=== PATIENT | female | born 1940 | race Caucasian/White ===

== ENCOUNTER 2023-05-14 10:24 | Outpatient (OUT) | payer MEDICARE, SELFPAY ==
--- NOTE | 2023-05-14 10:27 | US_ITS ---
[address] [address] Patient Name: HENRIETTA GROSS MRN: [facility]:[id number] date: 1940 Sex: F Assigned Patient Location: Current Patient Location: US Accession/Order Number: [id number] Exam Date: 05/14/2023 10:30 Report Date: 05/14/2023 12:25 At the request of: CLINTON NIX Procedure: US carotid duplex BI EXAMINATION: US carotid duplex BI HISTORY: Bruit Of Right Carotid Artery R09.89 COMPARISON: No relevant comparison available. TECHNIQUE: Duplex Doppler ultrasound analysis of carotid and vertebral arteries. . Bilateral carotid arterial duplex examination was performed using B-mode, color flow and spectral analysis. Carotid stenosis is reported according to validated velocity parameters, similar to NASCET criteria. FINDINGS: RIGHT CAROTID ARTERY Mild atherosclerotic plaque Subclavian: PSV: 104.3 cm/s cm/s EDV: 0.0 cm/s cm/s CCA: Prox: PSV: 152.9 cm/s cm/s EDV: 38.7 cm/s cm/s Mid: PSV: 100.3 cm/s cm/s EDV: 19.5 cm/s cm/s Distal: PSV: 76.7 cm/s cm/s EDV: 17.5 cm/s cm/s BULB: PSV: 62.9 cm/s cm/s EDV: 17.5 cm/s cm/s ICA: Prox: PSV: 76.7 cm/s cm/s EDV: 13.6 cm/s cm/s Mid: PSV: 59.4 cm/s cm/s EDV: 21.9 cm/s cm/s Distal: PSV: 90.5 cm/s cm/s EDV: 27.0 cm/s cm/s ECA: PSV: 80.1 cm/s cm/s EDV: 11.5 cm/s cm/s VERTEBRAL: PSV: 58.1 cm/s cm/s EDV: 10.2 cm/s cm/s, antegrade ICA/CCA ratio: PSV: 0.6 EDV: 0.7 LEFT CAROTID ARTERY Mild atherosclerotic plaque Subclavian: PSV: 137.8 cm/s cm/s EDV: 0.0 cm/s CCA: Prox: PSV: 84.6 cm/s cm/s EDV: 21.5 cm/s Mid: PSV: 106.2 cm/s cm/s EDV: 33.3 cm/s Distal: PSV: 90.5 cm/s cm/s EDV: 31.3 cm/s BULB: PSV: 76.7 cm/s cm/s EDV: 29.4 cm/s ICA: Prox: PSV: 58.9 cm/s cm/s EDV: 19.5 cm/s Mid: PSV: 90.5 cm/s cm/s EDV: 33.3 cm/s Distal: PSV: 74.7 cm/s cm/s EDV: 23.4 cm/s ECA: PSV: 102.2 cm/s cm/s EDV: 11.6 cm/s VERTEBRAL: PSV: 78.6 cm/s cm/s EDV: 17.5 cm/s , antegrade ICA/CCA ratio: PSV: 0.9 EDV: 1.0 US/US carotid duplex BI IMPRESSION: 0-49% flow stenosis bilateral interal carotid arteries Spectral Doppler US Thresholds (Reference: Javier EG, et al. Radiology 2000; 214:247-252) Stenosis (%) PSV (cm/sec) VICA/VCCA 0-49 <150 <2.5 50-69 150-225 2.5-4.0 >70 >225 >4.0 Electronically authenticated by: GRISEL HARTMAN Date: 05/14/2023 12:25
== END 2023-05-14 10:25 | disposition home or self-care (01) ==
LOC: US 10:24
PROVIDERS: PCP Internal Medicine; Visit Provider Internal Medicine
DX: R09.89 Other specified symptoms and signs involving the circulatory and respiratory systems (principal); I65.23 Occlusion and stenosis of bilateral carotid arteries
CPT/HCPCS: 93880

== ENCOUNTER 2023-05-19 08:27 | Outpatient (OUT) | payer MEDICARE, SELFPAY ==
[2023-05-19 09:13] LABS: Hematocrit 33.9 % (36.0-48.0); Hemoglobin 10.9 g/dL (12.0-16.0); Mean Corpuscular HGB Conc 32.2 g/dL (29.9-35.2); Mean Corpuscular Hemoglobin 33.2 pg (26.7-34.0); Mean Corpuscular Volume 103.4 fL (81.0-99.0); Mean Platelet Volume 9.1 fL (9.5-13.5); Platelet Count 231 10^3/uL (150-450); Red Blood Count 3.28 10^6/uL (4.20-5.40); White Blood Count 4.4 10^3/uL (4.0-11.0)
[2023-05-19 09:41] LABS: Albumin Level 3.4 g/dL (3.4-5.0); Anion Gap 12.9; Calcium 9.4 mg/dL (8.5-10.1); Carbon Dioxide 27.8 mmol/L (21.0-32.0); Chloride 101 mmol/L (98-107); Estimated GFR (African America 41 (>=60); Estimated GFR (Non-African Ame 34 (>=60); Glucose 162 mg/dL (74-106); Magnesium 1.9 mg/dL (1.8-2.4); Phosphorus 4.2 mg/dL (2.6-4.7); Potassium 4.7 mmol/L (3.5-5.1); Sodium 137 mmol/L (136-145); Uric Acid 7.1 mg/dL (2.6-6.0)
[2023-05-19 13:55] LABS: Creatinine Urine Random 42.84 mg/dL (20.00-300.00); Protein Creatinine Ratio Urine 0.14; Total Protein Urine Random <6.0 mg/dL (<=11.9)
[2023-05-19 14:24] LABS: Bilirubin Urine NEGATIVE (NEGATIVE); Blood Urine NEGATIVE (NEGATIVE); Clarity Urine CLEAR (CLEAR); Color Urine LT. YELLOW (YELLOW); Glucose Urine UA 100 mg/dL (NEGATIVE); Ketones Urine NEGATIVE (NEGATIVE); Leukocyte Esterase Urine NEGATIVE (NEGATIVE); Nitrite Urine NEGATIVE (NEGATIVE); Protein Urine NEGATIVE (NEG/TRACE); Specific Gravity Urine 1.015 (1.005-1.025); Urobilinogen Urine 0.2 EU/dL (0.2-1.0)
[2023-05-19 14:33] LABS: Bacteria Urine NONE SEEN #/HPF (NONE SEEN); Mucus Urine NONE SEEN (NONE SEEN); RBC Urine NONE SEEN #/HPF (0-2); Squamous Epithelial Cell Urine FEW #/LPF (NONE/RARE); WBC Urine NONE SEEN #/HPF (NONE SEEN)
[2023-05-20 11:11] LABS: PTH, Intact 31 pg/mL (15-65)
== END 2023-05-19 08:28 | disposition home or self-care (01) ==
PROVIDERS: PCP Internal Medicine; Visit Provider Internal Medicine
DX: I12.9 Hypertensive chronic kidney disease with stage 1 through stage 4 chronic kidney disease, or unspecified chronic kidney disease (principal); N18.4 Chronic kidney disease, stage 4 (severe); N25.81 Secondary hyperparathyroidism of renal origin; D63.1 Anemia in chronic kidney disease; E79.0 Hyperuricemia without signs of inflammatory arthritis and tophaceous disease; E83.42 Hypomagnesemia
CPT/HCPCS: 36415; 80069; 81001; 81003; 82306; 82570; 83735; 83970; 84156; 84550; 85027

== ENCOUNTER 2023-06-11 12:51 | Outpatient (OUT) | payer MEDICARE, SELFPAY ==
--- NOTE | 2023-06-11 13:51 | CA_ITS ---
Patient: HENRIETTA GROSS Exam Date: 06/11/2023 : 1940 Gender:F Ordering : SRINIVAS BERNAL Admission #: [id number] Family : DR CLINTON NIX D.O. Order #: [id number] CLICK HERE TO VIEW EXAM ECHOCARDIOGRAM REPORT PROCEDURE: CA ECHO DOPPLER COMPLETE INDICATIONS: Murmur, chronic kidney disease, hypertension COMPARISON: None. DESCRIPTION: COMPLETE ECHOCARDIOGRAM Real-time transthoracic echocardiography with 2D, M-mode, spectral and color flow Doppler performed. QUALITY: Technical quality was good. LEFT VENTRICLE: Normal chamber size. Normal left ventricular wall thickness. LV EF: Normal left ventricular ejection fraction, (>55%). No segmental wall motion abnormalities. DIASTOLIC: Diastolic function is indeterminate. ATRIAL SEPTUM: Visually appears intact. LEFT ATRIUM: Normal chamber size. RIGHT ATRIUM: Normal chamber size. RIGHT VENTRICLE: Normal chamber size. Normal right ventricular systolic function. TRICUSPID VALVE: Normal mobility and thickness. No stenosis with mild regurgitation. Doppler studies reveal mildly (35-45) elevated right sided pressures. RVSP 43 mmHg MITRAL VALVE: Normal mobility and thickness. No evidence of mitral valve stenosis. Mild mitral annular calcification. Trivial mitral regurgitation. AORTIC VALVE: Normal trileaflet appearance. Thickened aortic valve. Normal leaflet mobility. No evidence of aortic valve stenosis. No aortic regurgitation. AORTIC ROOT: Normal diameter and appearance. PULMONIC VALVE: Normal thickness and mobility. No stenosis. Trivial regurgitation. PERICARDIUM: Anterior free space; trivial effusion versus fat pad. IVC: Collapses with inspirations. CONCLUSION: 1. Global left ventricular systolic function is normal; visually estimated ejection fraction is 60 to 65% 2. Diastolic function is indeterminate 3. The right ventricle is normal in size and systolic function 4. Mild tricuspid regurgitation 5. Mildly elevated right ventricular systolic pressure 6. Anterior free space; trivial effusion versus fat pad Adult Echocardiography Procedure Report Left Ventricle LVEDD (3.7 - 5.6 cm): 3.61 cm LVESD (2.2 - 4.0 cm): 2.27 cm LVIVS thickness (0.6 - 1.2 cm): 0.88 cm LVPW thickness (0.5 - 1.0 cm): 0.95 cm e': 0.07 m/s E - e': 8.90 LVOT Max Gradient: 2.37 mm[Hg] LVOT Area (cm2): 0.77 m/s Peak Velocity (LVOT): 0.77 m/s LVOT Diameter 2.03 cm Left Atrium Left Atrium Systolic Dimension: 2.20 cm Mitral Valve MV E to A Ratio: 0.73 Mitral Valve A-Wave Peak Velocity: 0.88 m/s Mitral Valve E-Wave Peak Velocity: 0.64 m/s Right Ventricle Aorta AO Root Diam: 2.76 cm Ascending Ao Diam: 3.08 cm Aortic Valve AoV Area (Peak Toby): 1.67 cm2, 1.67 cm2 Peak Velocity(Antegrade Flow): 1.49 m/s Peak Gradient(Antegrade Flow): 8.93 mm[Hg] Mean Velocity(Antegrade Flow): 0.94 m/s Mean Gradient(Antegrade Flow): 4.09 mm[Hg] Velocity Time Integral: 32.63 cm Tricuspid Valve Peak Velocity (Regurgitant Flow): 2.40 m/s, 3.18 m/s Pulmonic Valve Peak Velocity: 0.93 m/s Peak Gradient: 3.98 mm[Hg], 2.96 mm[Hg] Right Atrium Right Atrium Systolic Pressure: 39.51 ml, 39.51 ml Dictated by: Jeremi Abbott M.D. on 06/12/2023 at 13:26 Approved by: Jeremi Abbott M.D. on 06/12/2023 at 13:30
== END 2023-06-11 12:52 | disposition home or self-care (01) ==
LOC: CARD 12:51
PROVIDERS: PCP Internal Medicine; Visit Provider Internal Medicine
DX: I12.9 Hypertensive chronic kidney disease with stage 1 through stage 4 chronic kidney disease, or unspecified chronic kidney disease (principal); R01.1 Cardiac murmur, unspecified; I07.1 Rheumatic tricuspid insufficiency
CPT/HCPCS: 93306

== ENCOUNTER 2023-06-20 08:14 | Outpatient (RCR) | payer MEDICARE, SELFPAY ==
[2023-06-20 10:24] VITALS: BP 154/88; PULSE 69; RESP 18; TEMP 36.5; O2SAT 99
--- NOTE | 2023-06-20 10:35 | PC.NURSE ---
1024: Pt. to [facility] via w/c accompanied by . VSS. Denies adverse reaction from previous injections of Prolia. Declines wanting snack or beverage.
[2023-06-20] MEDS: DENOSUMAB 60 MG/ML SYRINGE SQ (10:44)
--- NOTE | 2023-06-20 10:51 | PC.NURSE ---
Pt. medicated with Prolia as directed. Pt. tolerates without c/o. D/c'd to home via w/c with .
== END 2023-07-19 23:59 | disposition home or self-care (01) ==
LOC: INF 08:14
PROVIDERS: PCP Internal Medicine; Visit Provider Internal Medicine
DX: M81.0 Age-related osteoporosis without current pathological fracture (principal)
CPT/HCPCS: 96372; J0897

== ENCOUNTER 2023-10-08 08:33 | Outpatient (OUT) | payer MEDICARE, SELFPAY ==
[2023-10-08 09:28] LABS: Estimated Average Glucose 174 mg/dL; Glycohemoglobin A1C 7.7 % (4.5-6.2)
== END 2023-10-08 08:34 | disposition home or self-care (01) ==
LOC: LAB 08:35
PROVIDERS: PCP Internal Medicine; Visit Provider Internal Medicine
DX: E11.65 Type 2 diabetes mellitus with hyperglycemia (principal)
CPT/HCPCS: 36415; 83036

== ENCOUNTER 2023-12-01 08:25 | Outpatient (OUT) | payer MEDICARE, SELFPAY ==
--- OUTSIDE RECORDS SUMMARY | 2023-12-01 08:35 | XMS_ITS | CCD ---
Author Name Unknown Address [address] [place] [address] Organization [facility] Care Team Providers Care Driver Messenger Name Role Phone Alex Lloyd DO Primary Care Provider Mir Amin Unavailable ALEX LLOYD Primary Care Physician [phone] Alex Lloyd DO Primary Care Provider Alex Lloyd DO Primary Care Provider MD Mikey Holden Admitting Unavailable ALEX LLOYD Referring Unavailable Mikey Holden Attending Unavailable Mikey Holden Attending Unavailable MD Mikey Holden Admitting Unavailable ALEX LLOYD Referring Unavailable Mikey Holden Attending Unavailable MD Mikey Holden Admitting Unavailable BALL, ALEX Referring Unavailable Mikey Holden Attending Unavailable MD Mikey Holden Admitting Unavailable DINAH, ALEX Referring Unavailable MD Mikey Holden Admitting Unavailable DINAH, ALEX Referring Unavailable Mikey Holden Attending Unavailable Alex Lloyd Unavailable DR ALEX LLOYD Admitting Unavailable BALL, DR ALONZO Attending Unavailable BALL, DR ALONZO Primary Care Unavailable BALL, DR ALONZO Primary Care Unavailable BALL, DR ALONZO Admitting Unavailable BALL, DR ALONZO Attending Unavailable BALL, DR ALONZO Consulting Unavailable ZIEBER, DR MERRILL Yao Consulting Unavailable BALL, DR ALONZO Primary Care Unavailable DOLORES, MIR Admitting Unavailable DOLORES, MIR Attending Unavailable DOLORES, MIR Consulting Unavailable BALL, DR ALONZO Primary Care Unavailable DOLORES, MIR Admitting Unavailable DOLORES, MIR Attending Unavailable DOLORES, MIR Consulting Unavailable DINAH, DR ALONZO Admitting Unavailable BALL, DR ALONZO Attending Unavailable BALL, DR ALONZO Consulting Unavailable BALL, DR ALONZO Primary Care Unavailable ZIEBER, DR MERRILL Yao Consulting Unavailable BALL, DR ALONZO Primary Care Unavailable REQUEST, NONE LISTED Admitting Unavaila ble REQUEST, DR CANNON LISTED Attending Unavaila ble REQUEST, DR NONE LISTED Consulting Unavaila ble BALL, DR ALONZO Primary Care Unavailable BALL, DR ALONZO Admitting Unavailable BALL, DR ALONZO Attending Unavailable BALL, DR ALONZO Primary Care Unavailable BALL, DR ALONZO Admitting Unavailable BALL, DR ALONZO Attending Unavailable BALL, DR ALONZO Consulting Unavailable ATIF YOUSIF Attending Unavailable ATIF YOUSIF R Referring Unavailable DINAH, ALEX E Primary Care Unavailable BALL, ALEX E Primary Care Unavailable KADE, ATIF R Referring Unavailable DINAH, ALEX E Primary Care Unavailable KADE, ATIF R Referring Unavailable KADE, ATIF R Referring Unavailable DINAH, ALEX E Primary Care Unavailable KADE, ATIF R Referring Unavailable KADE, ATIF Yao Attending Unavailable DINAH, ALEX Chaparro Primary Care Unavailable DINAH, ALEX Chaparro Primary Care Unavailable ATIF YOUSIF R Referring Unavailable DINAH, ALEX Chaparro Primary Care Unavailable KADE, ATIF R Referring Unavailable DINAH, ALEX Chaparro Primary Care Unavailable ATIF YOUSIF R Referring Unavailable DINAH, ALEX Chaparro Primary Care Unavailable ATIF YOUSIF Referring Unavailable MARANDA HOPE Attending Unavailable BALL, ALEX E Primary Care Unavailable KADE, ATIF R Referring Unavailable DINAH, ALEX E Primary Care Unavailable KADE, ATIF R Referring Unavailable KADE, ATIF R Attending Unavailable DINAH, ALEX E Primary Care Unavailable KADE, ATIF R Referring Unavailable DINAH, ALEX E Primary Care Unavailable KADE, ATIF R Referring Unavailable DINAH, ALEX E Primary Care Unavailable ATIF YOUSIF R Referring Unavailable DINAH, ALEX E Primary Care Unavailable KADE, ATIF R Referring Unavailable DINAH, ALEX E Primary Care Unavailable ATIF YOUSIF R Referring Unavailable ATIF YOUSIF R Attending Unavailable DINAH, ALEX E Primary Care Unavailable ATIF YOUSIF R Referring Unavailable DINAH, ALEX E Primary Care Unavailable ATIF YOUSIF R Referring Unavailable DINAH, ALEX Krysta Primary Care Unavailable CHANTAL CARNES Attending UnavailAlex Lyles MD Primary Care Provider Allergies Allergy Classification Reported Allergen(s) Allergy Type Date of Onset Reaction(s) Facility (17 sources) iron sucrose; Translations: [IRON SUCROSE] Drug Allergy 10-01-20 12 Unknown [facility] (20 sources) Sulfonamides (Antibiotic); Translations: [SULFA (SULFONAMIDE ANTIBIOTICS)] Drug Allergy 10-01-20 12 Unknown [facility] (20 sources) atorvastatin Drug Allergy Unknown [facility] (20 sources) Iron Drug Allergy Unknown [facility] (5 sources) sulfaSALAzine Drug Allergy Unknown [facility] Other (20 sources) Tetracycline Drug Allergy Unknown [facility] Other (5 sources) iron polysaccharide; Translations: [iron polysaccharide] Drug Allergy Weal (disorder) [facility] (5 sources) Sulfamethoxazole; Translations: [sulfamethoxazole ] Drug Allergy swelling [facility] (2 sources) Iron Drug Allergy 03-29-20 16 [facility] (2 sources) Sulfonamides (Antibiotic) Drug allergy (disorder) 07-01-20 13 [facility] (4 sources) patient allergy list reviewed by nurse or physicia Propensity to adverse reactions 05-17-20 19 Comment:Done [facility] Other (2 sources) ferrous sulfate Drug Allergy 06-04-20 23 [facility] (2 sources) Iron Drug Allergy 10-31-19 22 Hives [facility] (2 sources) iron sucrose Drug Allergy 10-01-20 12 Unknown [facility] (2 sources) Sulfanilamide Allergy to substance 06-04-20 23 [facility] Medications Current Medications Medication Drug Class(es) Dates Sig (Normalized) Sig (Original) acetaminophen 325 mg / HYDROcodone bitartrate 7.5 mg oral tablet (20 sources) Opioid Agonist Start: 11-06-2023 take 1 tablet by mouth three times daily as needed HYDROcodone-Aceta minophen 7.5-325 MG 1 tablet Orally three times daily, as needed for 30 days Oct, Active Start: 08-05-2023 take 1 tablet by milly th three times daily as needed HYDROcodone-Acetaminophen 7.5-325 MG 1 tablet Orally three times daily, as needed for 30 days Start 08/05Jul, Active Start: 09-06-2022 take 1 tablet by milly th three times daily as needed for pain HYDROcodone-Acetaminophen (NORCO) 7.5-32 5 mg per tablet TAKE 1 TABLET BY MOUTH 3 TIMES A DAY NEEDED FOR PAIN 0 09/06/2022 Active Start: 05-30-2022 take 1 tablet by milly th three times daily as needed for pain [place] 325 mg-7.5 mg oral tablet 1 tab(s) , Oral, TID as needed for pain, 90 tab(s), Refill(s) 0, [id number], 160, cm, 05/02/22 14:00:00 EDT, Height/Length Dosing, 72.5, kg, 05/02/22 14:00:00 EDT, Weight Dosing Start Date: 05/30/22 Status: Ordered Start: 04-16-2022 End: 05-16-2022 take 1 tablet by mouth three times daily as needed for pain [place] 325 mg-7.5 mg oral tablet 1 tab(s) , Oral, TID as needed for pain for 30 day(s), 90 tab(s), Refill(s) 0, [id number], 160, cm, 02/21/22 12:46:00 EDT, Height/Length Dosing, 76.2, kg, 02/21/22 12:46:00 EDT, Weight Dosing Start Date: 04/16/22 Stop Date: 05/16/22 Status: Ordered take 1 tablet by milly th every eight hours as needed HYDROcodone-Acetaminophen 7.5-325 MG 1 tablet as needed Orally every 8 hrs prn Active Comment on above: TAKE 1 TABLET BY MILLY TH 3 TIMES A DAY NEEDED FOR PAIN amoxicillin 500 mg oral capsule (20 sources) Penicillin-class Antibacterial Amoxicillin 500 MG 4 capsule Orally before dental work Active Calcium + D3 600-800 MG-UNIT (20 sources) take 600-800 tablets by mouth once daily Calcium + D3 600-800 MG-UNIT 1 tablet with a meal Orally Once a day Active Calcium Carbonate-Vit D-Min (Calcium 600+D Plus Minerals) 600-400 MG-UNIT tablet (2 sources) Calcium Carbonat e-Vit D-Min (Calcium 600+D Plus Minerals) 600-400 MG-UNIT tablet every 12 (twelve) hours. 0 Active Calcium Citrate / Vitamin D (4 sources) Start: 017 calcium-vitamin D 1,200 mg, Oral, Daily, Refill(s) 0, 800 mg vitamin d 1200 mg calcium Start Date: 10/23/16 Status: Ordered cholecalciferol 0.025 mg oral capsule (2 sources) Vitamin D take 1 capsule by mouth once daily cholecalciferol ( Vitamin D) 25 MCG (1000 UT) capsule take 1 by Oral route every day Oral 0 Active 1 ml denosumab 60 mg/ml prefilled syringe (14 sources) RANK Ligand Inhibitor Start: 023 Prolia 60 MG/ML as directed Subcutaneous q 6 mo February, Active denosumab (Proli a) 60 MG/ML solution prefilled syringe Subcutaneous 0 Active gabapentin 100 mg oral capsule (20 sources) Anti-epileptic Agent Start: 10-11-2021 take 1 capsule by mouth three times daily gabapentin 100 mg Cap 100 mg = 1 cap(s), Oral, TID, Refills(s) 0 Start Date: 10/11/21 Status: Ordered Start: 10-01-2012 take 3 capsules by m outh three times daily gabapentin (NEURONTIN) 100 mg capsule Take 300 mg by mouth three times daily. 0 10/01/2012 Active gabapentin (Neur ontin) 100 MG capsule every 8 (eight) hours. 0 Active Comment on above: Take 300 mg by mouth three times daily. Glucose Meter Test - (16 sources) Start: 02-17-2023 Glucose Meter Test - Use to test home BS qd In Vitro daily for 365 days February, Active magnesium oxide 400 mg oral tablet (20 sources) Start: 11-27-2022 take 1 tablet by mouth in the morning magnesium oxide (Mag-Ox) 400 MG tablet Take 400 mg by mouth in the morning. 0 08/25/2023 Active [place] 3 1000 MG (20 sources) take 1 capsule by mouth twice daily [place] 3 1000 MG 1 capsule Orally twice day Active [place] 3 340 MG capsule delayed-release (2 sources) take 1 capsule by mouth every twelve hours [place] 3 340 MG capsule delayed-release 1 capsule every 12 (twelve) hours. 0 Active [place]-3 (4 sources) Start: 09-06-2014 take 300 mg by mouth twice daily [place]-3 300 mg, Oral, BID, Refill(s) 0, Prophylaxis Start Date: 09/06/14 Status: Ordered Completed/Discontinued Medications Medication Drug Class(es) Dates Sig (Normalized) Sig (Original) amLODIPine 5 mg oral tablet (20 sources) Dihydropyridine Calcium Channel Juliet Start: 09-29-2021 amLODIPine (NORVASC) 5 mg tablet Calcium Carbonate / vitamin D3 (16 sources) calcium carbonate/vitami n D3 (CALCIUM 600 + D ORAL) Take by mouth. 0 Active Comment on above: Take by mouth. carvedilol 6.25 mg oral tablet (20 sources) alpha-Adrenergic Juliet, beta-Adrenergic Juliet Start: 09-01-2012 take 1 tablet by mouth twice daily carvedilol (COREG) 6.25 mg tablet Take 1 tablet by mouth twice daily. 0 10/01/2012 Active Comment on above: Take 1 tablet by milly th twice daily. famotidine 20 mg oral tablet (20 sources) Histamine-2 Receptor Antagonist Start: 10-11-2021 famotidine (PEPCID) 20 mg tablet Take by mouth twice daily. 0 10/11/2021 Active famotidine (Pepc id) 20 MG tablet every 12 (twelve) hours. 0 Active Comment on above: Take by mouth twice daily. fenofibrate 134 mg oral capsule (20 sources) Peroxisome Proliferator Receptor alpha Agonist Start: 8 take 1 capsule by mouth once daily at bedtime fenofibrate (LOFIBRA) 134 mg capsule Take 134 mg by mouth daily at bedtime. 0 05/22/2019 Active fenofibrate (Tri glide) 160 MG tablet 1 (one) time each day at the same time. 0 Active Comment on above: Take 134 mg by mouth daily at bedtime. [id number]-fish oil 300-1,000 mg cpDR (16 sources) [id number] -fish oil 300-1,000 mg cpDR Take by mouth. 0 Active Comment on above: Take by mouth. oxyCODONE hydrochloride 5 mg oral tablet (11 sources) Opioid Agonist Start: 2 End: 2 take 1 tablet by mouth twice daily as needed for pain oxyCODONE IR (ROXICODONE) 5 mg immediate release tablet TAKE 1 TABLET BY MOUTH TWICE A DAY NEEDED FOR PAIN 0 11/13/2021 09/16/2022 Discontinued (Discontinued by another Health Care Provider) Comment on above: TAKE 1 TABLET BY MILLY TH TWICE A DAY NEEDED FOR PAIN Problems Active Problems Problem Classification Problem Date Documented Date Episodic/Chronic Chronic kidney disease (20 sources) Chronic kidney disease stage 3B ; Translations: [Chronic renal impairment, stage 3b (HCC)] Onset: 2 Resolved: 2 Chronic Chronic kidney disease (20 sources) Chronic kidney disease; Translations: [Chronic kidney disease, stage III (moderate)] Onset: 1 Resolved: 1 Conditions associated with dizziness or vertigo (2 sources) Benign paroxysmal vertigo, bilateral Episodic Deficiency and other anemia (20 sources) Anemia of chronic renal failure; Translations: [Anemia of chronic renal failure, stage 3b (HCC)] Onset: 2 Chronic Deficiency and other anemia (4 sources) Iron deficiency anemia due to blood loss; Translations: [Iron deficiency anemia secondary to blood loss (chronic)] Chronic Deficiency and other anemia (20 sources) Anemia of renal disease; Translations: [Anemia in chronic kidney disease] Chronic Deficiency and other anemia (7 sources) Anemia in chronic kidney disease; Translations: [ANEMIA IN CHRONIC KIDNEY DISEASE] Onset: 2 Resolved: 2 Chronic Deficiency and other anemia (4 sources) Anemia due to chronic blood loss; Translations: [Iron deficiency anemia secondary to blood loss (chronic)] Onset: 7 Chronic Deficiency and other anemia (4 sources) Chronic anemia; Translations: [Anemia in other chronic diseases classified elsewhere] Chronic Deficiency and other anemia (20 sources) Iron deficiency anemia secondary to inadequate dietary iron intake; Translations: [Other iron deficiency anemias] Episodic Deficiency and other anemia (2 sources) Other iron deficiency anemias Episodic Deficiency and other anemia (12 sources) Iron deficiency anemia; Translations: [Other iron deficiency anemias] Onset: 5 Episodic Deficiency and other anemia (1 source) Deficiency and other anemia; Translations: [Anemia of chronic renal failure, stage 3b (HCC)] Onset: 2 Diabetes mellitus with complications (20 sources) Type 2 diabetes mellitus; Translations: [Type 2 diabetes mellitus with hyperglycemia] Chronic Disorders of lipid metabolism (20 sources) Hyperlipidemia; Translations: [Hyperlipidemia, unspecified] Onset: 6 08-18-2014 Chronic Esophageal disorders (20 sources) Gastroesophageal reflux disease; Translations: [Gastro-esophageal reflux disease without esophagitis] Onset: 3 Resolved: 0 08-18-2014 Chronic Essential hypertension (20 sources) Essential hypertension; Translations: [Essential (primary) hypertension] Onset: 3 Chronic Fluid and electrolyte disorders (4 sources) Hyperkalemia; Translations: [Hyperkalemia] Episodic Gastroduodenal ulcer (except hemorrhage) (4 sources) Gastric ulcer 02-18-2019 Chronic Gastroduodenal ulcer (except hemorrhage) (4 sources) H/O: peptic ulcer; Translations: [Personal history of peptic ulcer disease] Episodic Genitourinary symptoms and ill-defined conditions (4 sources) Dysuria; Translations: [Dysuria] Episodic Heart valve disorders (1 source) Cardiac murmur, unspecified Episodic Hypertension with complications and secondary hypertension (20 sources) Chronic kidney disease due to hypertension; Translations: [Hypertensive chronic kidney disease with stage 1 through stage 4 chronic kidney disease, or unspecified chronic kidney disease] Onset: 6 Resolved: 2 Chronic Immunizations and screening for infectious disease (4 sources) Vaccination given; Translations: [Encounter for immunization] Episodic Mycoses (1 source) Onychomycosis; Translations: [Tinea unguium] 11-28-2023 Episodic Neoplasms of unspecified nature or uncertain behavior (20 sources) Monoclonal gammopathy of uncertain significance; Translations: [Monoclonal gammopathy] Chronic Nutritional deficiencies (7 sources) Vitamin D deficiency, unspecified; Translations: [Vitamin D deficiency] Onset: 3 06-04-2023 Chronic Osteoarthritis (20 sources) Degenerative joint disease involving multiple joints; Translations: [Polyosteoarthritis, unspecified] Onset: 6 Chronic Osteoporosis (19 sources) Age-related osteoporosis without current pathological fracture; Translations: [Senile osteoporosis] Onset: 3 Chronic Other acquired deformities (16 sources) Scoliosis of lumbar spine; Translations: [Scoliosis, unspecified] Onset: 4 08-18-2014 Chronic Other circulatory disease (5 sources) Other specified symptoms and signs involving the circulatory and respiratory systems Episodic Other diseases of kidney and ureters (20 sources) Secondary hyperparathyroidism; Translations: [Secondary hyperparathyroidism of renal origin] Chronic Other diseases of kidney and ureters (6 sources) Secondary hyperparathyroidism of renal origin; Translations: [SEC HYPERPARATHYROIDISM RENAL ORIGN] Onset: 1 Resolved: 2 Chronic Other diseases of veins and lymphatics (20 sources) Peripheral venous insufficiency; Translations: [Venous insufficiency (chronic) (peripheral)] Onset: 6 Episodic Other diseases of veins and lymphatics (4 sources) Venous insufficiency (chronic) (peripheral) Episodic Other ear and sense organ disorders (4 sources) Otitis externa of right ear; Translations: [Unspecified otitis externa, right ear] Onset: 7 Chronic Other fractures (4 sources) Fracture of pelvis 05-15-2016 Episodic Other fractures (4 sources) Wedge compression fracture of unspecified lumbar vertebra, subsequent encounter for fracture with routine healing; Translations: [Wedge comprsn fx unsp lum vertebra, subs for fx w routn heal] Episodic Other injuries and conditions due to external causes (4 sources) Fracture of bone 10-04-2015 Episodic Comment on above: August 2015 Other injuries and conditions due to external causes (8 sources) History of fall; Translations: [Personal history of fall] Onset: 6 Episodic Other injuries and conditions due to external causes (4 sources) Old healed fracture of bone ; Translations: [Personal history of (healed) traumatic fracture] Episodic Other nervous system disorders (2 sources) Neuropathy; Translations: [Idiopathic progressive neuropathy] Onset: 3 06-04-2023 Chronic Other nervous system disorders (1 source) Idiopathic progressive polyneuropathy; Translations: [Idiopathic progressive neuropathy] 11-28-2023 Chronic Other non-traumatic joint disorders (4 sources) Lower limb joint arthritis; Translations: [Osteoarthrosis, unspecified whether generalized or localized, lower leg] Onset: 7 Chronic Other nutritional; endocrine; and metabolic disorders (20 sources) Hypomagnesemia; Translations: [Hypomagnesemia] Chronic Other nutritional; endocrine; and metabolic disorders (2 sources) Hypomagnesemia Chronic Other nutritional; endocrine; and metabolic disorders (4 sources) Hypercalcemia; Translations: [Hypercalcemia] Onset: 8 Chronic Other nutritional; endocrine; and metabolic disorders (4 sources) Simple obesity ; Translations: [Other obesity due to excess calories] Onset: 4 Chronic Other nutritional; endocrine; and metabolic disorders (4 sources) Body mass index 30+ - obesity; Translations: [Body mass index 31.0-31.9, adult] Onset: 4 Chronic Other nutritional; endocrine; and metabolic disorders (4 sources) Obese class I; Translations: [Body mass index 32.0-32.9, adult] Onset: 4 Chronic Other nutritional; endocrine; and metabolic disorders (3 sources) History of iron deficiency; Translations: [Personal history of other endocrine, nutritional and metabolic disease] Episodic Other nutritional; endocrine; and metabolic disorders (2 sources) Hyperuricemia without signs of inflammatory arthritis and tophaceous disease Episodic Other nutritional; endocrine; and metabolic disorders (4 sources) Overweight; Translations: [Overweight] Episodic Other skin disorders (1 source) Callosity; Translations: [Corns and callosities] 11-28-2023 Episodic Regional enteritis and ulcerative colitis (20 sources) Crohn's disease; Translations: [Crohn's disease, unspecified, without complications] Onset: 2 10-07-2012 Chronic Spondylosis; intervertebral disc disorders; other back problems (20 sources) Other spondylosis with myelopathy, lumbar region; Translations: [Lumbar spondylosis with myelopathy] Onset: 8 Chronic Thyroid disorders (4 sources) 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; Translations: [Thyrotoxicosis of other specified origin without mention of thyrotoxic crisis or storm] Onset: 7 Chronic Unclassified (4 sources) Long-term current use of opiate analgesic drug Onset: 2 05-02-2022 Comment on above: Added secondary to c urrent Opioid Treatment Agreement Unclassified (4 sources) Urine finding; Translations: [Other nonspecific finding on examination of urine] Onset: 7 Unclassified (4 sources) Retained foreign body, unspecified material; Translations: [Retained foreign body, unspecified material] Onset: 5 Viral infection (4 sources) Disease caused by 2019-nCoV; Translations: [COVID-19] Past or Other Problems Problem Classification Problem Date Documented Da te Episodic/Chronic Acute and unspecified renal failure (5 sources) Acute kidney failure, unspecified; Translations: [Acute renal failure syndrome] Onset: 10-16-2021 Resolved: 04-23-2022 Episodic Acute posthemorrhagic anemia (4 sources) Acute posthemorrhagic anemia; Translations: [Acute posthemorrhagic anemia] Onset: 05-05-2017 Episodic Bacterial infection; unspecified site (4 sources) Bacterial infectious disease; Translations: [Bacterial infection, unspecified, in conditions classified elsewhere and of unspecified site] Onset: 10-16-2017 Episodic Deficiency and other anemia (20 sources) Anemia; Translations: [Anemia, unspecified] Onset: 10-01-2012 Resolved: 10-19-2022 10-01-2012 Episodic Deficiency and other anemia (1 source) Anemia, unspecified Onset: 10-16-2021 Resolved: 10-16-2021 Episodic Esophageal disorders (8 sources) Esophageal disorders; Translations: [Gastro-esophageal reflux disease with esophagitis, without bleeding] Gastrointestinal hemorrhage (4 sources) Acute gastric ulcer with hemorrhage but without obstruction; Translations: [Acute gastric ulcer with hemorrhage, without mention of obstruction] Onset: 02-15-2019 Episodic Malaise and fatigue (16 sources) Malaise and fatigue; Translations: [Other malaise] Onset: 12-05-2017 12-05-2017 Episodic Nutritional deficiencies (18 sources) Iron deficiency; Translations: [Iron deficiency] Onset: 10-01-2012 10-01-2012 Episodic Other circulatory disease (4 sources) Cardiovascular symptoms; Translations: [Other symptoms involving cardiovascular system] Onset: 10-16-2017 Episodic Other connective tissue disease (4 sources) Spasm; Translations: [Spasm of muscle] Onset: 04-03-2018 Episodic Other ear and sense organ disorders (4 sources) Impacted cerumen; Translations: [Impacted cerumen] Onset: 02-06-2017 Episodic Other fractures (4 sources) Fracture of pelvis Onset: 07-30-2016 08-15-2016 Episodic Other non-traumatic joint disorders (4 sources) Pain in right hip joint; Translations: [Pain in right hip] Onset: 07-04-2016 Episodic Other screening for suspected conditions (not mental disorders or infectious disease) (5 sources) Encounter for screening mammogram for malignant neoplasm of breast; Translations: [Blood chemistry abnormal] Onset: 03-05-2017 Episodic Other skin disorders (4 sources) Hypertrophic condition of skin; Translations: [Other hypertrophic disorders of the skin] Resolved: 09-10-2021 Episodic Other skin disorders (4 sources) Actinic keratosis; Translations: [Actinic keratosis] Onset: 10-30-2016 Episodic Other skin disorders (4 sources) Localized swelling, mass and lump, neck; Translations: [Localized swelling, mass and lump, neck] Onset: 04-16-2018 Episodic Other skin disorders (4 sources) Localized swelling, mass and lump, unspecified lower limb; Translations: [Localized swelling, mass and lump, unspecified lower limb] Onset: 10-30-2016 Episodic Other upper respiratory disease (4 sources) Bleeding from nose; Translations: [Epistaxis] Onset: 12-16-2014 Episodic Other upper respiratory infections (8 sources) Acute maxillary sinusitis; Translations: [Acute recurrent maxillary sinusitis] Onset: 02-03-2014 Episodic Otitis media and related conditions (4 sources) Eustachian tube salpingitis; Translations: [Unspecified Eustachian salpingitis, bilateral] Resolved: 04-11-2021 Episodic Spondylosis; intervertebral disc disorders; other back problems (20 sources) Stenosis of lumbar vertebral foramen; Translations: [Spinal stenosis, lumbar region without neurogenic claudication] Onset: 09-07-2013 08-18-2014 Episodic Sprains and strains (4 sources) Neck sprain; Translations: [Strain of muscle, fascia and tendon at neck level, initial encounter] Onset: 04-03-2018 Episodic Superficial injury; contusion (4 sources) Contusion of hand; Translations: [Contusion of hand(s)] Onset: 08-03-2015 Episodic Urinary tract infections (8 sources) Acute cystitis; Translations: [Acute cystitis with hematuria] Onset: 10-16-2017 Resolved: 09-10-2021 Episodic Results Test Name Value Interpretation Reference Range Facility Basic metabolic 2000 panelon 08-21-2023 Anion gap [Moles/Vol] 7 mmol/L Low 9-18 [facility] Comment on above: Order Comment: Speci men Type: BLOOD SPECIMENOrdering Facility: [facility] Address: [address] [place] [address] Performed By: #### 2 4321-2 ####[facility] [id number] [place] [address] Calcium [Mass/Vol] 10.4 mg/dL High 8.5-10.2 [facility] Comment on above: Order Comment: Speci men Type: BLOOD SPECIMENOrdering Facility: [facility] Address: [address] [place] [address] Performed By: #### 2 4321-2 ####[facility] [id number] [place] [address] Chloride [Moles/Vol] 100 mmol/L Normal 97-105 [facility] Comment on above: Order Comment: Speci men Type: BLOOD SPECIMENOrdering Facility: [facility] Address: [address] [place] [address] Performed By: #### 2 4321-2 ####[facility] [id number] [place] [address] CO2 [Moles/Vol] 29 mmol/L Normal 22-30 [facility] Comment on above: Order Comment: Speci men Type: BLOOD SPECIMENOrdering Facility: [facility] Address: [address] [place] [address] Performed By: #### 2 4321-2 ####[facility] [id number] [place] [address] Creatinine [Mass/Vol] 1.43 mg/dL High 0.58-0.96 [facility] Comment on above: Order Comment: Speci men Type: BLOOD SPECIMENOrdering Facility: [facility] Address: [address] [place] [address] Performed By: #### 2 4321-2 ####[facility] [id number] [place] [address] Creatinine and Glomerular filtration rate.predicted panel (S/P/Bld) 36 mL/min/1.73m??? Low >=60 [facility] Comment on above: Order Comment: Speci men Type: BLOOD SPECIMENOrdering Facility: [facility] Address: [address] [place] [address] Result Comment: Lady mated Glomerular Filtration Rate (eGFR) is calculated using the 2020 CKD-EPI creatinine equation. This equation utilizes serum creatinine, sex, and age as parameters. The creatinine assay has traceable calibration to isotope dilution-mass spectrometry. Refer to KDIGO guidelines for clinical interpretation. In patients with unstable renal function, e.g. those with acute kidney injury, the eGFR may not accurately reflect actual GFR. Performed By: #### 2 4321-2 ####[facility] [id number] [place] [address] Glucose [Mass/Vol] 213 mg/dL High 74-99 [facility] Comment on above: Order Comment: Speci men Type: BLOOD SPECIMENOrdering Facility: [facility] Address: [address] [place] [address] Result Comment: The [place] Diabetes Association (ADA) provides guidance for cutoff values for fasting glucose and random glucose. The ADA defines fasting as no caloric intake for at least 8 hours. Fasting plasma glucose results between 100 to 125 mg/dL indicate increased risk for diabetes (prediabetes). Fasting plasma glucose results greater than or equal to 126 mg/dL meet the criteria for diagnosis of diabetes. In the absence of unequivocal hyperglycemia, results should be confirmed by repeat testing. In a patient with classic symptoms of hyperglycemia or hyperglycemic crisis, random plasma glucose results greater than or equal to 200 mg/dL meet the criteria for diagnosis of diabetes. Reference: Standards of Medical Care in Diabetes 2016, [place] [employer]. Diabetes Care. 2016.39(Suppl 1). Performed By: #### 2 4321-2 ####[facility] [id number] [place] [address] Potassium [Moles/Vol] 4.7 mmol/L Normal 3.7-5.1 [facility] Comment on above: Order Comment: Lindsayi mary Type: BLOOD SPECIMENOrdering Facility: [facility] Address: [address] [place] [address] Performed By: #### 2 4321-2 ####[facility] [id number] [place] [address] Sodium [Moles/Vol] 136 mmol/L Normal 136-144 [facility] Comment on above: Order Comment: Speci men Type: BLOOD SPECIMENOrdering Facility: [facility] Address: [address] [place] [address] Performed By: #### 2 4321-2 ####[facility] [id number] [place] [address] Urea nitrogen [Mass/Vol] 34 mg/dL High 7-21 [facility] Comment on above: Order Comment: Speci men Type: BLOOD SPECIMENOrdering Facility: [facility] Address: [address] [place] [address] Performed By: #### 2 4321-2 ####[facility] [id number] [place] [address] CBC W Auto Differential pane l (Bld)on 08-21-2023 Basophils (Bld) [#/Vol] 0.03 10*3/uL Normal <0.11 [facility] Comment on above: Order Comment: Speci men Type: BLOOD SPECIMENOrdering Facility: [facility] Address: [address] [place] [address] Performed By: #### 5 7021-8 ####[facility] [id number] [place] [address] Basophils/100 WBC (Bld) 0.5 % Normal [facility] Comment on above: Order Comment: Speci men Type: BLOOD SPECIMENOrdering Facility: [facility] Address: [address] [place] [address] Performed By: #### 5 7021-8 ####[facility] [id number] [place] [address] Differential cell count method Nom (Bld) Auto Normal [facility] Comment on above: Order Comment: Speci men Type: BLOOD SPECIMENOrdering Facility: [facility] Address: [address] [place] [address] Performed By: #### 5 7021-8 ####[facility] [id number] [place] [address] Eosinophils (Bld) [#/Vol] 0.22 10*3/uL Normal <0.46 [facility] Comment on above: Order Comment: Speci men Type: BLOOD SPECIMENOrdering Facility: [facility] Address: [address] [place] [address] Performed By: #### 5 7021-8 ####[facility] [id number] [place] [address] Eosinophils/100 WBC (Bld) 4.0 % Normal [facility] Comment on above: Order Comment: Speci men Type: BLOOD SPECIMENOrdering Facility: [facility] Address: [address] [place] [address] Performed By: #### 5 7021-8 ####[facility] [id number] [place] [address] Erythrocyte distribution width (RBC) [Ratio] 12.7 % Normal 11.5-15.0 [facility] Comment on above: Order Comment: Speci men Type: BLOOD SPECIMENOrdering Facility: [facility] Address: [address] [place] [address] Performed By: #### 5 7021-8 ####[facility] [id number] [place] [address] Hematocrit (Bld) [Volume fraction] 36.2 % Normal 36.0-46.0 [facility] Comment on above: Order Comment: Speci men Type: BLOOD SPECIMENOrdering Facility: [facility] Address: [address] [place] [address] Performed By: #### 5 7021-8 ####[facility] [id number] [place] [address] Hemoglobin (Bld) [Mass/Vol] 12.0 g/dL Normal 11.5-15.5 [facility] Comment on above: Order Comment: Speci men Type: BLOOD SPECIMENOrdering Facility: [facility] Address: [address] [place] [address] Performed By: #### 5 7021-8 ####[facility] [id number] [place] [address] Immature granulocytes (Bld) [#/Vol] 10*3/uL Normal <0.10 [facility] Comment on above: Order Comment: Speci men Type: BLOOD SPECIMENOrdering Facility: [facility] Address: [address] [place] [address] Performed By: #### 5 7021-8 ####[facility] [id number] [place] [address] Immature granulocytes/100 WBC (Bld) 0.4 % Normal [facility] Comment on above: Order Comment: Speci men Type: BLOOD SPECIMENOrdering Facility: [facility] Address: [address] [place] [address] Performed By: #### 5 7021-8 ####[facility] [id number] [place] [address] Lymphocytes (Bld) [#/Vol] 0.99 10*3/uL Low 1.00-4.00 [facility] Comment on above: Order Comment: Speci men Type: BLOOD SPECIMENOrdering Facility: [facility] Address: [address] [place] [address] Performed By: #### 5 7021-8 ####[facility] [id number] [place] [address] Lymphocytes/100 WBC (Bld) 17.8 % Normal [facility] Comment on above: Order Comment: Speci men Type: BLOOD SPECIMENOrdering Facility: [facility] Address: [address] [place] [address] Performed By: #### 5 7021-8 ####[facility] [id number] [place] [address] MCH (RBC) [Entitic mass] 34.0 pg Normal 26.0-34.0 [facility] Comment on above: Order Comment: Speci men Type: BLOOD SPECIMENOrdering Facility: [facility] Address: [address] [place] [address] Performed By: #### 5 7021-8 ####[facility] [id number] [place] [address] MCHC (RBC) [Mass/Vol] 33.1 g/dL Normal 30.5-36.0 [facility] Comment on above: Order Comment: Speci men Type: BLOOD SPECIMENOrdering Facility: [facility] Address: [address] [place] [address] Performed By: #### 5 7021-8 ####[facility] [id number] [place] [address] MCV (RBC) [Entitic vol] 102.5 fL High 80.0-100.0 [facility] Comment on above: Order Comment: Speci men Type: BLOOD SPECIMENOrdering Facility: [facility] Address: [address] [place] [address] Performed By: #### 5 7021-8 ####[facility] [id number] [place] [address] Monocytes (Bld) [#/Vol] 0.45 10*3/uL Normal <0.87 [facility] Comment on above: Order Comment: Speci men Type: BLOOD SPECIMENOrdering Facility: [facility] Address: [address] [place] [address] Performed By: #### 5 7021-8 ####[facility] [id number] [place] [address] Monocytes/100 WBC (Bld) 8.1 % Normal [facility] Comment on above: Order Comment: Speci men Type: BLOOD SPECIMENOrdering Facility: [facility] Address: [address] [place] [address] Performed By: #### 5 7021-8 ####[facility] [id number] [place] [address] Neutrophils (Bld) [#/Vol] 3.84 10*3/uL Normal 1.45-7.50 [facility] Comment on above: Order Comment: Speci men Type: BLOOD SPECIMENOrdering Facility: [facility] Address: [address] [place] [address] Performed By: #### 5 7021-8 ####[facility] [id number] [place] [address] Neutrophils/100 WBC (Bld) 69.2 % Normal [facility] Comment on above: Order Comment: Speci men Type: BLOOD SPECIMENOrdering Facility: [facility] Address: [address] [place] [address] Performed By: #### 5 7021-8 ####[facility] [id number] [place] [address] Nucleated RBC (Bld) [#/Vol] 10*3/uL Normal <0.01 [facility] Comment on above: Order Comment: Speci men Type: BLOOD SPECIMENOrdering Facility: [facility] Address: [address] [place] [address] Performed By: #### 5 7021-8 ####[facility] [id number] [place] [address] Nucleated RBC/100 WBC (Bld) [Ratio] 0.0 /100 WBC Normal [facility] Comment on above: Order Comment: Speci men Type: BLOOD SPECIMENOrdering Facility: [facility] Address: [address] [place] [address] Performed By: #### 5 7021-8 ####[facility] [id number] [place] [address] Platelet mean volume (Bld) [Entitic vol] 9.0 fL Normal 9.0-12.7 [facility] Comment on above: Order Comment: Speci men Type: BLOOD SPECIMENOrdering Facility: [facility] Address: [address] [place] [address] Performed By: #### 5 7021-8 ####[facility] [id number] [place] [address] Platelets (Bld) [#/Vol] 223 10*3/uL Normal 150-400 [facility] Comment on above: Order Comment: Speci men Type: BLOOD SPECIMENOrdering Facility: [facility] Address: [address] [place] [address] Performed By: #### 5 7021-8 ####[facility] [id number] [place] [address] RBC (Bld) [#/Vol] 3.53 10*6/uL Low 3.90-5.20 [facility] Comment on above: Order Comment: Speci men Type: BLOOD SPECIMENOrdering Facility: [facility] Address: [address] [place] [address] Performed By: #### 5 7021-8 ####[facility] [id number] [place] [address] WBC (Bld) [#/Vol] 5.55 10*3/uL Normal 3.70-11.00 [facility] Comment on above: Order Comment: Speci men Type: BLOOD SPECIMENOrdering Facility: [facility] Address: [address] [place] [address] Performed By: #### 5 7021-8 ####[facility] [id number] [place] [address] CNOVSPon 08-21-2023 CNOVS Visit (SP) Office ([facility]) HENRIETTA MAGANA ([id number]) 1940 F Date Time Provider Department 08/21/23 1:45 PM ATIF YOUSIF During your visit today, we recorded the following information about you: Temperature Pulse Respiration Blood pressure 97.7 degrees 71/minute 16/minute 151/74 Weight 69.9 kg Atif Yousif MD 08/21/2023 5:50 PM Signed PATIENT NAME: Henrietta Magana DATE: 08/21/2023 PRIMARY CARE PHYSICIAN: Dr. Alex Lloyd OTHER PHYSICIANS: Dr. Holden (pain management), Dr. Flores, Dr. Amin Portions of this encounter note have been copied from the note from 05/01/2023 and has been updated where appropriate, and reflect my current medical decision making from today. CC: This is an 83 year old female with chronic anemia, seen for scheduled follow-up. INTERIM HISTORY: Since the patient's last visit here she has had no significant medical changes. She remains on a low-carb diet for her recent diagnosis of type 2 diabetes. She denies any evidence of bleeding or bruising. Overall she feels well. MEDICATIONS: HYDROcodone-Acetamino phen (NORCO) 7.5-325 mg per tablet TAKE 1 TABLET BY MOUTH 3 TIMES A DAY NEEDED FOR PAIN calcium carbonate/vitamin D3 (CALCIUM 600 + D ORAL) Take by mouth. famotidine (PEPCID) 20 mg tablet Take by mouth twice daily. amLODIPine (NORVASC) 5 mg tablet fenofibrate (LOFIBRA) 134 mg capsule Take 134 mg by mouth daily at bedtime. mgouo-[id number]-ngp-epa-fish oil 300-1,000 mg cpDR Take by mouth. carvedilol (COREG) 6.25 mg tablet Take 1 tablet by mouth twice daily. gabapentin (NEURONTIN) 100 mg capsule Take 300 mg by mouth three times daily. ALLERGIES: Sulfa (Sulfonamide Antibiotics) and Venofer [Iron Sucrose] PAST MEDICAL HISTORY: PAST MEDICAL HISTORY Diagnosis Date Anemia Arthritis Chronic renal insufficiency Crohn's disease (HCC) Degenerative joint disease GERD (gastroesophageal reflux disease) Hyperlipidemia Hypertension Iron deficiency Osteoarthritis PAST SURGICAL HISTORY: PAST SURGICAL HISTORY Procedure Laterality Date BACK SURGERY HX 2004 Dr. Guillen CATARACT SURGERY, COMPLEX COLONOSCOPY EGD HYSTERECTOMY HX KNEE SURGERY HX 2009 TKR. Left REVIEW OF SYSTEMS: General: No weight loss, malaise or fevers. Increasing fatigue. HEENT: Negative for frequent or significant headaches. No changes in hearing or vision, no nose bleeds or other nasal problems. Respiratory: Negative for cough, wheezing or shortness of breath. Cardiovascular: Negative for chest pain, leg swelling or palpitations. GI: Negative for abdominal discomfort, blood in stools or black stools or change in bowel habits. : No history of dysuria, frequency or incontinence. Musculoskeletal: Positive for joint pain and swelling and muscle pain- chronic. Skin: Negative for lesions, rash, and itching. Hematology/Lymphology : Negative for prolonged bleeding, bruising easily or swollen nodes. Neuro: No history of headaches, syncope, paralysis, seizures or tremors. PHYSICAL EXAM: Vitals: BP 151/74 Pulse 71 Temp 36.5 ?C (97.7 ?F) (Temporal) Resp 16 Wt 69.9 kg (154 lb) SpO2 97% BMI 30.08 kg/m? ECOG 1 Exam limited to gross visualization where appropriate due to COVID-19. Gen.: This is an age-appropriate patient in no acute distress. Head: Appears atraumatic with no visible lesions. Eyes: Pupils equally round and reactive to light, extraocular muscles are intact. Neck: Supple. Mouth: Masked. Respiratory: Appears to be respiring comfortably. Neurologic: Nonfocal to gross visualization. Alert and oriented ?3. Psychiatric: No evidence of inappropriate anxiety or depression. Skin: Visible areas of skin without rash, lesions, wounds or petechiae. LABORATORY DATA: Hemoglobin (g/dL) Date Value 08/21/2023 12.0 12/13/2021 11.6 Hematocrit (%) Date Value 08/21/2023 36.2 12/13/2021 37.0 WBC (k/uL) Date Value 08/21/2023 5.55 12/13/2021 4.90 Platelet Count (k/uL) Date Value 08/21/2023 223 12/13/2021 213 ASSESSMENT/PLAN: 1. 285.9 Anemia (primary diagnosis) Severe anemia initially discovered February 2007 (hemoglobin 6.7). Bone marrow biopsy April 2007 nondiagnostic. Etiology multifactorial - in part due to iron deficiency from GI bleeding, in part due to CRI. Shortly after initial presentation the patient received multiple blood transfusions, iron infusions, and EPO injections with resolution of her anemia. The patient developed recurrent anemia in January 2019 due to an upper GI bleed from peptic ulcer disease. With appropriate management her anemia initially returned to baseline. However, since 2021 her anemia has worsened as a result of chronic renal insufficiency and the patient became symptomatic with severe fatigue. For the treatment of renal failure induced anemia the patient was started on Aranesp 11/29/2021, with (more content not included)... Normal [facility] Basic metabolic 2000 panelon 06-26-2023 Anion gap [Moles/Vol] 11 mmol/L Normal 9-18 [facility] Comment on above: Order Comment: Speci men Type: BLOOD SPECIMENOrdering Facility: [facility] Address: [address] [place] [address] Performed By: #### 2 4321-2 ####[facility] [id number] [place] [address] Calcium [Mass/Vol] 9.4 mg/dL Normal 8.5-10.2 [facility] Comment on above: Order Comment: Speci men Type: BLOOD SPECIMENOrdering Facility: [facility] Address: [address] [place] [address] Performed By: #### 2 4321-2 ####[facility] [id number] [place] [address] Chloride [Moles/Vol] 103 mmol/L Normal 97-105 [facility] Comment on above: Order Comment: Speci men Type: BLOOD SPECIMENOrdering Facility: [facility] Address: [address] [place] [address] Performed By: #### 2 4321-2 ####[facility] [id number] [place] [address] CO2 [Moles/Vol] 25 mmol/L Normal 22-30 [facility] Comment on above: Order Comment: Speci men Type: BLOOD SPECIMENOrdering Facility: [facility] Address: [address] [place] [address] Performed By: #### 2 4321-2 ####[facility] [id number] [place] [address] Creatinine [Mass/Vol] 1.65 mg/dL High 0.58-0.96 [facility] Comment on above: Order Comment: Margo hernandez Type: BLOOD SPECIMENOrdering Facility: [facility] Address: [address] [place] [id number] Performed By: #### 2 4321-2 ####[facility] [id number] [place] [address] Creatinine and Glomerular filtration rate.predicted panel (S/P/Bld) 31 mL/min/1.73m??? Low >=60 [facility] Comment on above: Order Comment: Margo hernandez Type: BLOOD SPECIMENOrdering Facility: [facility] Address: [address] [place] [address] Result Comment: Lady mated Glomerular Filtration Rate (eGFR) is calculated using the 2020 CKD-EPI creatinine equation. This equation utilizes serum creatinine, sex, and age as parameters. The creatinine assay has traceable calibration to isotope dilution-mass spectrometry. Refer to KDIGO guidelines for clinical interpretation. In patients with unstable renal function, e.g. those with acute kidney injury, the eGFR may not accurately reflect actual GFR. Performed By: #### 2 4321-2 ####[facility] [id number] [place] [address] Glucose [Mass/Vol] 254 mg/dL High 74-99 [facility] Comment on above: Order Comment: Margo hernandez Type: BLOOD SPECIMENOrdering Facility: [facility] Address: [address] [place] [id number] Result Comment: The [place] Diabetes [employer] (ADA) provides guidance for cutoff values for fasting glucose and random glucose. The ADA defines fasting as no caloric intake for at least 8 hours. Fasting plasma glucose results between 100 to 125 mg/dL indicate increased risk for diabetes (prediabetes). Fasting plasma glucose results greater than or equal to 126 mg/dL meet the criteria for diagnosis of diabetes. In the absence of unequivocal hyperglycemia, results should be confirmed by repeat testing. In a patient with classic symptoms of hyperglycemia or hyperglycemic crisis, random plasma glucose results greater than or equal to 200 mg/dL meet the criteria for diagnosis of diabetes. Reference: Standards of Medical Care in Diabetes 2016, [place] [employer]. Diabetes Care. 2016.39(Suppl 1). Performed By: #### 2 4321-2 ####[facility] [id number] [place] [address] Potassium [Moles/Vol] 5.0 mmol/L Normal 3.7-5.1 [facility] Comment on above: Order Comment: Speci men Type: BLOOD SPECIMENOrdering Facility: [facility] Address: [address] [place] [address] Performed By: #### 2 4321-2 ####[facility] [id number] [place] [address] Sodium [Moles/Vol] 139 mmol/L Normal 136-144 [facility] Comment on above: Order Comment: Speci men Type: BLOOD SPECIMENOrdering Facility: [facility] Address: [address] [place] [address] Performed By: #### 2 4321-2 ####[facility]IA [id number] [place] [address] Urea nitrogen [Mass/Vol] 38 mg/dL High 7-21 [facility] Comment on above: Order Comment: Speci men Type: BLOOD SPECIMENOrdering Facility: [facility] Address: [address] [place] [address] Performed By: #### 2 4321-2 ####[facility] [id number] [place] [address] CBC W Auto Differential pane l (Bld)on 06-26-2023 Basophils (Bld) [#/Vol] 10*3/uL Normal <0.11 [facility] Comment on above: Order Comment: Speci men Type: BLOOD SPECIMENOrdering Facility: [facility] Address: [address] [place] [address] Performed By: #### 5 7021-8 ####[facility] [id number] [place] [address] Basophils/100 WBC (Bld) 0.4 % Normal [facility] Comment on above: Order Comment: Speci men Type: BLOOD SPECIMENOrdering Facility: [facility] Address: [address] [place] [address] Performed By: #### 5 7021-8 ####[facility] [id number] [place] [address] Differential cell count method Nom (Bld) Auto Normal [facility] Comment on above: Order Comment: Speci men Type: BLOOD SPECIMENOrdering Facility: [facility] Address: [address] [place] [address] Performed By: #### 5 7021-8 ####[facility] [id number] [place] [address] Eosinophils (Bld) [#/Vol] 0.24 10*3/uL Normal <0.46 [facility] Comment on above: Order Comment: Speci men Type: BLOOD SPECIMENOrdering Facility: [facility] Address: [address] [place] [address] Performed By: #### 5 7021-8 ####[facility] [id number] [place] [address] Eosinophils/100 WBC (Bld) 4.4 % Normal [facility] Comment on above: Order Comment: Speci men Type: BLOOD SPECIMENOrdering Facility: [facility] Address: [address] [place] [address] Performed By: #### 5 7021-8 ####[facility] [facility] [id number] [place] [address] Erythrocyte distribution width (RBC) [Ratio] 12.7 % Normal 11.5-15.0 [facility] Comment on above: Order Comment: Speci men Type: BLOOD SPECIMENOrdering Facility: [facility] Address: [address] [place] [address] Performed By: #### 5 7021-8 ####[facility] LABCL[facility] [id number] [place] [address] Hematocrit (Bld) [Volume fraction] 33.4 % Low 36.0-46.0 [facility] Comment on above: Order Comment: Speci men Type: BLOOD SPECIMENOrdering Facility: [facility] Address: [address] [place] [address] Performed By: #### 5 7021-8 ####[facility]CL[facility] [id number] [place] [address] Hemoglobin (Bld) [Mass/Vol] 11.0 g/dL Low 11.5-15.5 [facility] Comment on above: Order Comment: Speci men Type: BLOOD SPECIMENOrdering Facility: [facility] Address: [address] [place] [address] Performed By: #### 5 7021-8 ####[facility]CL[facility] [id number] [place] [address] Immature granulocytes (Bld) [#/Vol] 10*3/uL Normal <0.10 [facility] Comment on above: Order Comment: Speci men Type: BLOOD SPECIMENOrdering Facility: [facility] Address: [address] [place] [address] Performed By: #### 5 7021-8 ####[facility]CL[facility] [id number] [place] [address] Immature granulocytes/100 WBC (Bld) 0.4 % Normal [facility] Comment on above: Order Comment: Speci men Type: BLOOD SPECIMENOrdering Facility: [facility] Address: [address] [place] [address] Performed By: #### 5 7021-8 ####[facility]CL[facility] [id number] [place] [address] Lymphocytes (Bld) [#/Vol] 1.27 10*3/uL Normal 1.00-4.00 [facility] Comment on above: Order Comment: Speci men Type: BLOOD SPECIMENOrdering Facility: [facility] Address: [address] [place] [address] Performed By: #### 5 7021-8 ####[facility]CL[facility] [id number] [place] [address] Lymphocytes/100 WBC (Bld) 23.4 % Normal [facility] Comment on above: Order Comment: Speci men Type: BLOOD SPECIMENOrdering Facility: [facility] Address: [address] [place] [address] Performed By: #### 5 7021-8 ####[facility] LABCL[facility] [id number] [place] [address] MCH (RBC) [Entitic mass] 34.1 pg High 26.0-34.0 [facility] Comment on above: Order Comment: Speci men Type: BLOOD SPECIMENOrdering Facility: [facility] Address: [address] [place] [address] Performed By: #### 5 7021-8 ####[facility] LABCL[facility] [id number] [place] [address] MCHC (RBC) [Mass/Vol] 32.9 g/dL Normal 30.5-36.0 [facility] Comment on above: Order Comment: Speci men Type: BLOOD SPECIMENOrdering Facility: [facility] Address: [address] [place] [address] Performed By: #### 5 7021-8 ####[facility]CL[facility] [id number] [place] [address] MCV (RBC) [Entitic vol] 103.4 fL High 80.0-100.0 [facility] Comment on above: Order Comment: Speci men Type: BLOOD SPECIMENOrdering Facility: [facility] Address: [address] [place] [address] Performed By: #### 5 7021-8 ####[facility]CL[facility] [id number] [place] [address] Monocytes (Bld) [#/Vol] 0.49 10*3/uL Normal <0.87 [facility] Comment on above: Order Comment: Speci men Type: BLOOD SPECIMENOrdering Facility: [facility] Address: [address] [place] [address] Performed By: #### 5 7021-8 ####[facility]CL[facility] [id number] [place] [address] Monocytes/100 WBC (Bld) 9.0 % Normal [facility] Comment on above: Order Comment: Speci men Type: BLOOD SPECIMENOrdering Facility: [facility] Address: [address] [place] [address] Performed By: #### 5 7021-8 ####[facility] LABCL[facility] [id number] [place] [address] Neutrophils (Bld) [#/Vol] 3.38 10*3/uL Normal 1.45-7.50 [facility] Comment on above: Order Comment: Speci men Type: BLOOD SPECIMENOrdering Facility: [facility] Address: [address] [place] [address] Performed By: #### 5 7021-8 ####[facility]CL[facility] [id number] [place] [address] Neutrophils/100 WBC (Bld) 62.4 % Normal [facility] Comment on above: Order Comment: Speci men Type: BLOOD SPECIMENOrdering Facility: [facility] Address: [address] [place] [address] Performed By: #### 5 7021-8 ####[facility]CL[facility] [id number] [place] [address] Nucleated RBC (Bld) [#/Vol] 10*3/uL Normal <0.01 [facility] Comment on above: Order Comment: Speci men Type: BLOOD SPECIMENOrdering Facility: [facility] Address: [address] [address] Performed By: #### 5 7021-8 ####[facility] LABCL[facility] [id number] [place] [address] Nucleated RBC/100 WBC (Bld) [Ratio] 0.0 /100 WBC Normal [facility] Comment on above: Order Comment: Speci men Type: BLOOD SPECIMENOrdering Facility: [facility] Address: [address] [place] [address] Performed By: #### 5 7021-8 ####[facility]CL[facility] [id number] [place] [address] Platelet mean volume (Bld) [Entitic vol] 8.9 fL Low 9.0-12.7 [facility] Comment on above: Order Comment: Speci men Type: BLOOD SPECIMENOrdering Facility: [facility] Address: [address] [place] [address] Performed By: #### 5 7021-8 ####[facility] LABCL[facility] [id number] [place] [address] Platelets (Bld) [#/Vol] 191 10*3/uL Normal 150-400 [facility] Comment on above: Order Comment: Speci men Type: BLOOD SPECIMENOrdering Facility: [facility] Address: [address] [address] Performed By: #### 5 7021-8 ####[facility]CL[facility] [id number] [place] [address] RBC (Bld) [#/Vol] 3.23 10*6/uL Low 3.90-5.20 [facility] Comment on above: Order Comment: Speci men Type: BLOOD SPECIMENOrdering Facility: [facility] Address: [address] [place] [address] Performed By: #### 5 7021-8 ####[facility]CL[facility] [id number] [place] [address] WBC (Bld) [#/Vol] 5.42 10*3/uL Normal 3.70-11.00 [facility] Comment on above: Order Comment: Speci men Type: BLOOD SPECIMENOrdering Facility: [facility] Address: [facility] [place] [address] Performed By: #### 5 7021-8 ####[facility] LABCLIA [id number] [place] [address] CNPSherie 06-20-2023 CNPN Telephone (HEMTSA) RENATOHENRIETTA Sin ([id number]) 1940 F Date Time Provider Department 06/20/23 DELIA BRADY During your visit today, we recorded the following information about you: Delia Brady RN 06/20/2023 1:17 PM Signed Henrietta will be in clinic for a blood draw and possible aranesp on 06/26/23. Although she hasn't required the injection since January we should still maybe have aranesp orders in place in case she requires it. It's up to you but wanted to make you aware we currently have no orders. Delia Brady RN Allergies As of Date: 06/20/2023 Noted Allergy Reaction SULFA (SULFONAMIDE ANTIBIOTICS) 10/01/2012 16 - Unknown VENOFER (IRON SUCROSE) 10/01/2012 16 - Unknown Date Reviewed: 05/01/2023 Reviewed by: Marleni Trotter MA - Fully Assessed Reason for Visit: Orders [681] Prescriptions as of 06/27/2023 - HYDROcodone-Acetamino phen (NORCO) 7.5-325 mg per tablet TAKE 1 TABLET BY MOUTH 3 TIMES A DAY NEEDED FOR PAIN - calcium carbonate/vitamin D3 (CALCIUM 600 + D ORAL) Take by mouth. - famotidine (PEPCID) 20 mg tablet Take by mouth twice daily. - amLODIPine (NORVASC) 5 mg tablet - fenofibrate (LOFIBRA) 134 mg capsule Take 134 mg by mouth daily at bedtime. - euvsu-9v-jwv-epa-fish oil 300-1,000 mg cpDR Take by mouth. - carvedilol (COREG) 6.25 mg tablet Take 1 tablet by mouth twice daily. - gabapentin (NEURONTIN) 100 mg capsule Take 300 mg by mouth three times daily. 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] 08/18/2014 Malaise and fatigue [R53.81, R53.83] 12/05/2017 Anemia of chronic renal failure, stage 3b (HCC)*10/30/2021 Encounter Status:Closed by DELIA BRADY on 06/27/23 Normal [facility] Basic metabolic 2000 panelon 05-01-2023 Anion gap [Moles/Vol] 9 mmol/L Normal 9-18 [facility] Comment on above: Order Comment: Speci men Type: BLOOD SPECIMENOrdering Facility: [facility] Address: [address] [place] [phone] Performed By: #### 2 4321-2 ####[facility] LABIA [id number] [place] [address] Calcium [Mass/Vol] 10.2 mg/dL Normal 8.5-10.2 [facility] Comment on above: Order Comment: Speci men Type: BLOOD SPECIMENOrdering Facility: [facility] Address: [address] [address] Performed By: #### 2 4321-2 ####[facility] LABCLIA [id number] [place] [address] Chloride [Moles/Vol] 101 mmol/L Normal 97-105 [facility] Comment on above: Order Comment: Speci men Type: BLOOD SPECIMENOrdering Facility: [facility] Address: [address] [address] Performed By: #### 2 4321-2 ####[facility] LABCLIA [id number] [place] [address] CO2 [Moles/Vol] 27 mmol/L Normal 22-30 [facility] Comment on above: Order Comment: Speci men Type: BLOOD SPECIMENOrdering Facility: [facility] Address: [address] [place] [address] Performed By: #### 2 4321-2 ####[facility] LABCL[facility] [id number] [place] [address] Creatinine [Mass/Vol] 1.44 mg/dL High 0.58-0.96 [facility] Comment on above: Order Comment: Speci men Type: BLOOD SPECIMENOrdering Facility: [facility] Address: [address] [place] [address] Performed By: #### 2 4321-2 ####[facility] LABCLIA [id number] [place] [address] ESTIMATED GLOMERULAR FILTRATION RATE 36 mL/min/1.73m??? Low >=60 [facility] Comment on above: Order Comment: Speci men Type: BLOOD SPECIMENOrdering Facility: [facility] Address: [address] [place] [address] Result Comment: Lady mated Glomerular Filtration Rate (eGFR) is calculated using the 2020 CKD-EPI creatinine equation. This equation utilizes serum creatinine, sex, and age as parameters. The creatinine assay has traceable calibration to isotope dilution-mass spectrometry. Refer to KDIGO guidelines for clinical interpretation. In patients with unstable renal function, e.g. those with acute kidney injury, the eGFR may not accurately reflect actual GFR. Performed By: #### 2 4321-2 ####[facility] LABCL[facility] [id number] [place] [address] Glucose [Mass/Vol] 211 mg/dL High 74-99 [facility] Comment on above: Order Comment: Speci men Type: BLOOD SPECIMENOrdering Facility: [facility] Address: [address] [place] [address] Result Comment: The [place] [employer] (ADA) provides guidance for cutoff values for fasting glucose and random glucose. The ADA defines fasting as no caloric intake for at least 8 hours. Fasting plasma glucose results between 100 to 125 mg/dL indicate increased risk for diabetes (prediabetes). Fasting plasma glucose results greater than or equal to 126 mg/dL meet the criteria for diagnosis of diabetes. In the absence of unequivocal hyperglycemia, results should be confirmed by repeat testing. In a patient with classic symptoms of hyperglycemia or hyperglycemic crisis, random plasma glucose results greater than or equal to 200 mg/dL meet the criteria for diagnosis of diabetes. Reference: Standards of Medical Care in Diabetes 2016, [place] [employer]. Diabetes Care. 2016.39(Suppl 1). Performed By: #### 2 4321-2 ####[facility] LABCL[facility] [id number] [place] [address] Potassium [Moles/Vol] 4.2 mmol/L Normal 3.7-5.1 [facility] Comment on above: Order Comment: Margo hernandez Type: BLOOD SPECIMENOrdering Facility: [facility] Address: [address] [id number] Performed By: #### 2 4321-2 ####[facility] LABCLIA [id number] [place] [address] Sodium [Moles/Vol] 137 mmol/L Normal 136-144 [facility] Comment on above: Order Comment: Margo hernandez Type: BLOOD SPECIMENOrdering Facility: [facility] Address: [address] [place], [place] [phone] Performed By: #### 2 4321-2 ####[facility] LABCLIA [id number] [place] [address] Urea nitrogen [Mass/Vol] 37 mg/dL High 7-21 [facility] Comment on above: Order Comment: Speci men Type: BLOOD SPECIMENOrdering Facility: [facility] Address: [address] [address] Performed By: #### 2 4321-2 ####[facility]CLIA [id number] [place] [address] Anion gap [Moles/Vol] 9 mmol/L 9 - 18 mmol/L [facility] Calcium [Mass/Vol] 10.2 mg/dL 8.5 - 10. 2 mg/dL [facility] Chloride [Moles/Vol] 101 mmol/L 97 - 10 5 mmol/L [facility] CO2 [Moles/Vol] 27 mmol/L 22 - 30 mmol/L [facility] Creatinine [Mass/Vol] 1.44 mg/dL High 0.58 - 0.96 mg/dL [facility] Estimated Glomerular Filtration Rate 36 mL/min/1.73m Low >=60 mL/min/1.73m [facility] Glucose [Mass/Vol] 211 mg/dL High 74 - 99 mg/dL [facility] Potassium [Moles/Vol] 4.2 mmol/L 3.7 - 5.1 mmol/L [facility] Sodium [Moles/Vol] 137 mmol/L 136 - 144 mmol/L [facility] Urea nitrogen [Mass/Vol] 37 mg/dL High 7 - 21 mg/dL [facility] CBC W Auto Differential pane l (Bld)on 05-01-2023 Basophils (Bld) [#/Vol] 0.03 10*3/uL Normal <0.11 [facility] Comment on above: Order Comment: Speci men Type: BLOOD SPECIMENOrdering Facility: [facility] Address: [address] [address] Performed By: #### 5 7021-8 ####[facility] LABCLIA [id number] [place] [address] Basophils/100 WBC (Bld) 0.5 % Normal [facility] Comment on above: Order Comment: Speci men Type: BLOOD SPECIMENOrdering Facility: [facility] Address: [address] [place] [address] Performed By: #### 5 7021-8 ####[facility] LABCLIA [id number] [place] [address] Differential cell count method Nom (Bld) Auto Normal [facility] Comment on above: Order Comment: Speci men Type: BLOOD SPECIMENOrdering Facility: [facility] Address: [address] [place] [address] Performed By: #### 5 7021-8 ####[facility] LABCLIA [id number] [place] [address] Eosinophils (Bld) [#/Vol] 0.19 10*3/uL Normal <0.46 [facility] Comment on above: Order Comment: Speci men Type: BLOOD SPECIMENOrdering Facility: [facility] Address: [address] [address] Performed By: #### 5 7021-8 ####[facility] LABCLIA [id number] [place] [address] Eosinophils/100 WBC (Bld) 3.3 % Normal [facility] Comment on above: Order Comment: Speci men Type: BLOOD SPECIMENOrdering Facility: [facility] Address: [address] [address] Performed By: #### 5 7021-8 ####[facility] LABCLIA [id number] [place] [address] Erythrocyte distribution width (RBC) [Ratio] 13.1 % Normal 11.5-15.0 [facility] Comment on above: Order Comment: Speci men Type: BLOOD SPECIMENOrdering Facility: [facility] Address: [address] [place] [address] Performed By: #### 5 7021-8 ####[facility] LABCLIA [id number] [place] [address] Hematocrit (Bld) [Volume fraction] 35.2 % Low 36.0-46.0 [facility] Comment on above: Order Comment: Speci men Type: BLOOD SPECIMENOrdering Facility: [facility] Address: [address] [place] [address] Performed By: #### 5 7021-8 ####[facility] LABCLIA [id number] [place] [address] Hemoglobin (Bld) [Mass/Vol] 11.5 g/dL Normal 11.5-15.5 [facility] Comment on above: Order Comment: Speci men Type: BLOOD SPECIMENOrdering Facility: [facility] Address: [address] [place] [address] Performed By: #### 5 7021-8 ####[facility] LABCLIA [id number] [place] [address] Immature granulocytes (Bld) [#/Vol] 10*3/uL Normal <0.10 [facility] Comment on above: Order Comment: Speci men Type: BLOOD SPECIMENOrdering Facility: [facility] Address: [address] [place] [address] Performed By: #### 5 7021-8 ####[facility] LABCLIA [id number] [place] [address] Immature granulocytes/100 WBC (Bld) 0.3 % Normal [facility] Comment on above: Order Comment: Speci men Type: BLOOD SPECIMENOrdering Facility: [facility] Address: [address] [place] [address] Performed By: #### 5 7021-8 ####[facility] LABCLIA [id number] [place] [address] Lymphocytes (Bld) [#/Vol] 1.36 10*3/uL Normal 1.00-4.00 [facility] Comment on above: Order Comment: Speci men Type: BLOOD SPECIMENOrdering Facility: [facility] Address: [address] [place] [address] Performed By: #### 5 7021-8 ####[facility] LABCLIA [id number] [place] [address] Lymphocytes/100 WBC (Bld) 23.4 % Normal [facility] Comment on above: Order Comment: Speci men Type: BLOOD SPECIMENOrdering Facility: [facility] Address: [address] [place] [address] Performed By: #### 5 7021-8 ####[facility] LABCLIA [id number] [place] [address] MCH (RBC) [Entitic mass] 33.1 pg Normal 26.0-34.0 [facility] Comment on above: Order Comment: Speci men Type: BLOOD SPECIMENOrdering Facility: [facility] Address: [address] [place] [address] Performed By: #### 5 7021-8 ####[facility] LABIA [id number] [place] [address] MCHC (RBC) [Mass/Vol] 32.7 g/dL Normal 30.5-36.0 [facility] Comment on above: Order Comment: Speci men Type: BLOOD SPECIMENOrdering Facility: [facility] Address: [address] [place] [address] Performed By: #### 5 7021-8 ####[facility] LABIA [id number] [place] [address] MCV (RBC) [Entitic vol] 101.4 fL High 80.0-100.0 [facility] Comment on above: Order Comment: Speci men Type: BLOOD SPECIMENOrdering Facility: [facility] Address: [address] [place] [address] Performed By: #### 5 7021-8 ####[facility] LABCLIA [id number] [place] [address] Monocytes (Bld) [#/Vol] 0.50 10*3/uL Normal <0.87 [facility] Comment on above: Order Comment: Speci men Type: BLOOD SPECIMENOrdering Facility: [facility] Address: [address] [place] [address] Performed By: #### 5 7021-8 ####[facility] LABCLIA [id number] [place] [address] Monocytes/100 WBC (Bld) 8.6 % Normal [facility] Comment on above: Order Comment: Speci men Type: BLOOD SPECIMENOrdering Facility: [facility] Address: [address] [place] [address] Performed By: #### 5 7021-8 ####[facility] LABCLIA [id number] [place] [address] Neutrophils (Bld) [#/Vol] 3.70 10*3/uL Normal 1.45-7.50 [facility] Comment on above: Order Comment: Speci men Type: BLOOD SPECIMENOrdering Facility: [facility] Address: [address] [place] [address] Performed By: #### 5 7021-8 ####[facility] LABCLIA [id number] [place] [address] Neutrophils/100 WBC (Bld) 63.9 % Normal [facility] Comment on above: Order Comment: Speci men Type: BLOOD SPECIMENOrdering Facility: [facility] Address: [address] [place] [address] Performed By: #### 5 7021-8 ####[facility] LABCLIA [id number] [place] [address] Nucleated RBC (Bld) [#/Vol] 10*3/uL Normal <0.01 [facility] Comment on above: Order Comment: Speci men Type: BLOOD SPECIMENOrdering Facility: [facility] Address: [address] [address] Performed By: #### 5 7021-8 ####[facility] LABCLIA [id number] [place] [address] Nucleated RBC/100 WBC (Bld) [Ratio] 0.0 /100 WBC Normal [facility] Comment on above: Order Comment: Speci men Type: BLOOD SPECIMENOrdering Facility: [facility] Address: [address] [address] Performed By: #### 5 7021-8 ####[facility] LABCLIA [id number] [place] [address] Platelet mean volume (Bld) [Entitic vol] 9.1 fL Normal 9.0-12.7 [facility] Comment on above: Order Comment: Speci men Type: BLOOD SPECIMENOrdering Facility: [facility] Address: [address] [address] Performed By: #### 5 7021-8 ####[facility] LABCLIA [id number] [place] [address] Platelets (Bld) [#/Vol] 205 10*3/uL Normal 150-400 [facility] Comment on above: Order Comment: Speci men Type: BLOOD SPECIMENOrdering Facility: [facility] Address: [address] [address] Performed By: #### 5 7021-8 ####[facility] LABCLIA [id number] [place] [address] RBC (Bld) [#/Vol] 3.47 10*6/uL Low 3.90-5.20 [facility] Comment on above: Order Comment: Speci men Type: BLOOD SPECIMENOrdering Facility: [facility] Address: [address] [place] [address] Performed By: #### 5 7021-8 ####[facility] LABCLIA [id number] [place] [address] WBC (Bld) [#/Vol] 5.80 10*3/uL Normal 3.70-11.00 [facility] Comment on above: Order Comment: Speci men Type: BLOOD SPECIMENOrdering Facility: [facility] Address: [address] [place] [phone] Performed By: #### 5 7021-8 ####[facility] LABCLIA [id number] [place] [address] Basophils (Bld) [#/Vol] 0.03 10*3/uL <0.11 k/uL [facility] Basophils/100 WBC (Bld) 0.5 % [facility] Differential cell count method Nom (Bld) Auto [facility] Eosinophils (Bld) [#/Vol] 0.19 10*3/uL <0.46 k/uL [facility] Eosinophils/100 WBC (Bld) 3.3 % [facility] Erythrocyte distribution width (RBC) [Ratio] 13.1 % 11.5 - 15.0 % [facility] Hematocrit (Bld) [Volume fraction] 35.2 % Low 36.0 - 46.0 % [facility] Hemoglobin (Bld) [Mass/Vol] 11.5 g/dL 11.5 - 15.5 g/dL [facility] Immature granulocytes (Bld) [#/Vol] <0.10 k/uL [facility] Immature granulocytes/100 WBC (Bld) 0.3 % [facility] Lymphocytes (Bld) [#/Vol] 1.36 10*3/uL 1.00 - 4.00 k/uL [facility] Lymphocytes/100 WBC (Bld) 23.4 % [facility] MCH (RBC) [Entitic mass] 33.1 pg 26.0 - 34.0 pg [facility] MCHC (RBC) [Mass/Vol] 32.7 g/dL 30.5 - 36.0 g/dL [facility] MCV (RBC) [Entitic vol] 101.4 fL High 80.0 - 100.0 fL [facility] Monocytes (Bld) [#/Vol] 0.50 10*3/uL <0.87 k/uL [facility] Monocytes/100 WBC (Bld) 8.6 % [facility] Neutrophils (Bld) [#/Vol] 3.70 10*3/uL 1.45 - 7.50 k/uL [facility] Neutrophils/100 WBC (Bld) 63.9 % [facility] Nucleated RBC (Bld) [#/Vol] <0.01 k/uL [facility] Nucleated RBC/100 WBC (Bld) [Ratio] 0.0 /100 WBC [facility] Platelet mean volume (Bld) [Entitic vol] 9.1 fL 9.0 - 12.7 fL [facility] Platelets (Bld) [#/Vol] 205 10*3/uL 150 - 400 k/uL [facility] RBC (Bld) [#/Vol] 3.47 10*6/uL Low 3.90 - 5.2 0 m/uL [facility] WBC (Bld) [#/Vol] 5.80 10*3/uL 3.70 - 11. 00 k/uL [facility] CNOVSPon 05-01-2023 CNOVSP Visit (SP) Office ([place]) HENRIETTA MAGANA ([id number]) 1940 F Date Time Provider Department 05/01/23 2:30 PM ATIF YOUSIF During your visit today, we recorded the following information about you: Temperature Pulse Respiration Blood pressure 97.1 degrees 84/minute 16/minute 143/70 Height 1.524 m Atif Yousif MD 05/02/2023 6:52 AM Signed PATIENT NAME: Henrietta Magana DATE: 05/01/2023 PRIMARY CARE PHYSICIAN: Dr. Alex Lloyd OTHER PHYSICIANS: Dr. Holden (pain management), Dr. Flores, Dr. Amin Portions of this encounter note have been copied from the note from 02/06/2023 and has been updated where appropriate, and reflect my current medical decision making from today. CC: This is an 83 year old female with chronic anemia, seen for scheduled follow-up. INTERIM HISTORY: Since the patient's last visit here she apparently was diagnosed with prediabetes per PCP. A low-carb diet has been prescribed. The patient has had no other significant medical changes. Overall she feels quite well today with no particular complaints. She has had no evidence of bleeding or bruising. MEDICATIONS: HYDROcodone-Acetamino phen (NORCO) 7.5-325 mg per tablet TAKE 1 TABLET BY MOUTH 3 TIMES A DAY NEEDED FOR PAIN calcium carbonate/vitamin D3 (CALCIUM 600 + D ORAL) Take by mouth. famotidine (PEPCID) 20 mg tablet Take by mouth twice daily. amLODIPine (NORVASC) 5 mg tablet fenofibrate (LOFIBRA) 134 mg capsule Take 134 mg by mouth daily at bedtime. veznc-1x-mew-epa-fish oil 300-1,000 mg cpDR Take by mouth. carvedilol (COREG) 6.25 mg tablet Take 1 tablet by mouth twice daily. gabapentin (NEURONTIN) 100 mg capsule Take 300 mg by mouth three times daily. ALLERGIES: Sulfa (Sulfonamide Antibiotics) and Venofer [Iron Sucrose] PAST MEDICAL HISTORY: PAST MEDICAL HISTORY Diagnosis Date Anemia Arthritis Chronic renal insufficiency Crohn's disease (HCC) Degenerative joint disease GERD (gastroesophageal reflux disease) Hyperlipidemia Hypertension Iron deficiency Osteoarthritis PAST SURGICAL HISTORY: PAST SURGICAL HISTORY Procedure Laterality Date BACK SURGERY HX 2004 Dr. Guillen CATARACT SURGERY, COMPLEX COLONOSCOPY EGD HYSTERECTOMY HX KNEE SURGERY HX 2009 TKR. Left REVIEW OF SYSTEMS: General: No weight loss, malaise or fevers. Increasing fatigue. HEENT: Negative for frequent or significant headaches. No changes in hearing or vision, no nose bleeds or other nasal problems. Respiratory: Negative for cough, wheezing or shortness of breath. Cardiovascular: Negative for chest pain, leg swelling or palpitations. GI: Negative for abdominal discomfort, blood in stools or black stools or change in bowel habits. : No history of dysuria, frequency or incontinence. Musculoskeletal: Positive for joint pain and swelling and muscle pain- chronic. Skin: Negative for lesions, rash, and itching. Hematology/Lymphology : Negative for prolonged bleeding, bruising easily or swollen nodes. Neuro: No history of headaches, syncope, paralysis, seizures or tremors. PHYSICAL EXAM: Vitals: BP 143/70 Pulse 84 Temp 36.2 ?C (97.1 ?F) (Temporal) Resp 16 Ht 152.4 cm (5') SpO2 94% BMI 30.08 kg/m? ECOG 1 Exam limited to gross visualization where appropriate due to COVID-19. Gen.: This is an age-appropriate patient in no acute distress. Head: Appears atraumatic with no visible lesions. Eyes: Pupils equally round and reactive to light, extraocular muscles are intact. Neck: Supple. Mouth: Masked. Respiratory: Appears to be respiring comfortably. Neurologic: Nonfocal to gross visualization. Alert and oriented ?3. Psychiatric: No evidence of inappropriate anxiety or depression. Skin: Visible areas of skin without rash, lesions, wounds or petechiae. LABORATORY DATA: Hemoglobin (g/dL) Date Value 05/01/2023 11.5 12/13/2021 11.6 Hematocrit (%) Date Value 05/01/2023 35.2 12/13/2021 37.0 WBC (k/uL) Date Value 05/01/2023 5.80 12/13/2021 4.90 Platelet Count (k/uL) Date Value 05/01/2023 205 12/13/2021 213 ASSESSMENT/PLAN: 1. 285.9 Anemia (primary diagnosis) Severe anemia initially discovered February 2007 (hemoglobin 6.7). Bone marrow biopsy April 2007 nondiagnostic. Etiology multifactorial - in part due to iron deficiency from GI bleeding, in part due to CRI. Shortly after initial presentation the patient received multiple blood transfusions, iron infusions, and EPO injections with resolution of her anemia. The patient developed recurrent anemia in January 2019 due to an upper GI bleed from peptic ulcer disease. With appropriate management her anemia initially returned to baseline. However, since 2020 her anemia has worsened as a result of chronic renal insufficiency and the patient became symptomatic with severe fatigue. For the treatment of renal failu (more content not included)... Normal [facility] Ferritin SerPl-mCncon 2022 Ferritin [Mass/Vol] 322.0 ng/mL High 14.7-205.1 [facility] Comment on above: Order Comment: Speci men Type: BLOOD SPECIMENOrdering Facility: [facility] Address: [address] [place], [place] [address] [address] Performed By: #### 2 276-4, 97474-3 ####[facility] LABIA [id number] [place] [address] [place] Iron and Iron binding capaci ty panelon 05-01-2023 Iron [Mass/Vol] 74 ug/dL Normal 41-186 [facility] Comment on above: Order Comment: Speci men Type: BLOOD SPECIMENOrdering Facility: [facility] Address: [address] [address] Performed By: #### 2 276-4, 86772-1 ####[facility] [id number] [address] STATES [facility] Iron binding capacity [Mass/Vol] 352 ug/dL Normal 232-386 [facility] Comment on above: Order Comment: Speci men Type: BLOOD SPECIMENOrdering Facility: [facility] Address: [address] [place] [address] Performed By: #### 2 276-4, 47003-5 ####[facility] [id number] [address] [place] Iron/TIBC [Molar ratio] 21.0 % Normal 15.0-57.0 [facility] Comment on above: Order Comment: Speci men Type: BLOOD SPECIMENOrdering Facility: [facility] Address: [address] Performed By: #### 2 276-4, 88448-7 ####[facility] LABIA [id number] [place] [address] [place] CBC W Auto Differential pane l (Bld)on 03-20-2023 Basophils (Bld) [#/Vol] 0.04 10*3/uL Normal <0.11 [facility] Comment on above: Order Comment: Speci men Type: BLOOD SPECIMENOrdering Facility: [facility] Address: [address] [place] [address] Performed By: #### 5 7021-8 ####[facility] LABCLIA [id number] [place] [address] Basophils/100 WBC (Bld) 0.8 % Normal [facility] Comment on above: Order Comment: Speci men Type: BLOOD SPECIMENOrdering Facility: [facility] Address: [address] [place] [address] Performed By: #### 5 7021-8 ####[facility] LABCLIA [id number] [place] [address] Differential cell count method Nom (Bld) Auto Normal [facility] Comment on above: Order Comment: Speci men Type: BLOOD SPECIMENOrdering Facility: [facility] Address: [address] [place] [address] Performed By: #### 5 7021-8 ####[facility] LABCLIA [id number] [place] [address] Eosinophils (Bld) [#/Vol] 0.21 10*3/uL Normal <0.46 [facility] Comment on above: Order Comment: Speci men Type: BLOOD SPECIMENOrdering Facility: [facility] Address: [address] [place] [address] Performed By: #### 5 7021-8 ####[facility] LABCLIA [id number] [place] [address] Eosinophils/100 WBC (Bld) 4.1 % Normal [facility] Comment on above: Order Comment: Speci men Type: BLOOD SPECIMENOrdering Facility: [facility] Address: [address] [place] [address] Performed By: #### 5 7021-8 ####[facility] LABCLIA [id number] [place] [address] Erythrocyte distribution width (RBC) [Ratio] 12.3 % Normal 11.5-15.0 [facility] Comment on above: Order Comment: Speci men Type: BLOOD SPECIMENOrdering Facility: [facility] Address: [address] [address] Performed By: #### 5 7021-8 ####[facility] LABCLIA [id number] [place] [address] Hematocrit (Bld) [Volume fraction] 36.1 % Normal 36.0-46.0 [facility] Comment on above: Order Comment: Speci men Type: BLOOD SPECIMENOrdering Facility: [facility] Address: [address] [place] [address] Performed By: #### 5 7021-8 ####[facility] LABCLIA [id number] [place] [address] Hemoglobin (Bld) [Mass/Vol] 11.7 g/dL Normal 11.5-15.5 [facility] Comment on above: Order Comment: Speci men Type: BLOOD SPECIMENOrdering Facility: [facility] Address: [address] [place] [address] Performed By: #### 5 7021-8 ####[facility] LABIA [id number] [place] [address] Immature granulocytes (Bld) [#/Vol] 10*3/uL Normal <0.10 [facility] Comment on above: Order Comment: Speci men Type: BLOOD SPECIMENOrdering Facility: [facility] Address: [address] [place] [address] Performed By: #### 5 7021-8 ####[facility] LABCLIA [id number] [place] [address] Immature granulocytes/100 WBC (Bld) 0.2 % Normal [facility] Comment on above: Order Comment: Speci men Type: BLOOD SPECIMENOrdering Facility: [facility] Address: [address] [place] [address] Performed By: #### 5 7021-8 ####[facility] LABCLIA [id number] [place] [address] Lymphocytes (Bld) [#/Vol] 1.40 10*3/uL Normal 1.00-4.00 [facility] Comment on above: Order Comment: Speci men Type: BLOOD SPECIMENOrdering Facility: [facility] Address: [address] [place] [address] Performed By: #### 5 7021-8 ####[facility] LABCLIA [id number] [place] [address] Lymphocytes/100 WBC (Bld) 27.3 % Normal [facility] Comment on above: Order Comment: Speci men Type: BLOOD SPECIMENOrdering Facility: [facility] Address: [address] [place] [address] Performed By: #### 5 7021-8 ####[facility] LABCLIA [id number] [place] [address] MCH (RBC) [Entitic mass] 33.1 pg Normal 26.0-34.0 [facility] Comment on above: Order Comment: Speci men Type: BLOOD SPECIMENOrdering Facility: [facility] Address: [address] [place] [address] Performed By: #### 5 7021-8 ####[facility] LABCLIA [id number] [place] [address] MCHC (RBC) [Mass/Vol] 32.4 g/dL Normal 30.5-36.0 [facility] Comment on above: Order Comment: Speci men Type: BLOOD SPECIMENOrdering Facility: [facility] Address: [address] [address] Performed By: #### 5 7021-8 ####[facility] LABCLIA [id number] [place] [address] MCV (RBC) [Entitic vol] 102.0 fL High 80.0-100.0 [facility] Comment on above: Order Comment: Speci men Type: BLOOD SPECIMENOrdering Facility: [facility] Address: [address] [place] [address] Performed By: #### 5 7021-8 ####[facility] LABCLIA [id number] [place] [address] Monocytes (Bld) [#/Vol] 0.49 10*3/uL Normal <0.87 [facility] Comment on above: Order Comment: Speci men Type: BLOOD SPECIMENOrdering Facility: [facility] Address: [address] [place] [address] Performed By: #### 5 7021-8 ####[facility] LABCLIA [id number] [place] [address] Monocytes/100 WBC (Bld) 9.6 % Normal [facility] Comment on above: Order Comment: Speci men Type: BLOOD SPECIMENOrdering Facility: [facility] Address: [address] [place] [address] Performed By: #### 5 7021-8 ####[facility] LABCLIA [id number] [place] [address] Neutrophils (Bld) [#/Vol] 2.97 10*3/uL Normal 1.45-7.50 [facility] Comment on above: Order Comment: Speci men Type: BLOOD SPECIMENOrdering Facility: [facility] Address: [address] [place] [address] Performed By: #### 5 7021-8 ####[facility] LABCLIA [id number] [place] [address] Neutrophils/100 WBC (Bld) 58.0 % Normal [facility] Comment on above: Order Comment: Speci men Type: BLOOD SPECIMENOrdering Facility: [facility] Address: [address] [place] [address] Performed By: #### 5 7021-8 ####[facility] LABCLIA [id number] [place] [address] Nucleated RBC (Bld) [#/Vol] 10*3/uL Normal <0.01 [facility] Comment on above: Order Comment: Speci men Type: BLOOD SPECIMENOrdering Facility: [facility] Address: [address] [address] Performed By: #### 5 7021-8 ####[facility] LABCLIA [id number] [place] [address] Nucleated RBC/100 WBC (Bld) [Ratio] 0.0 /100 WBC Normal [facility] Comment on above: Order Comment: Speci men Type: BLOOD SPECIMENOrdering Facility: [facility] Address: [address] [address] Performed By: #### 5 7021-8 ####[facility] LABIA [id number] [place] [address] Platelet mean volume (Bld) [Entitic vol] 8.9 fL Low 9.0-12.7 [facility] Comment on above: Order Comment: Speci men Type: BLOOD SPECIMENOrdering Facility: [facility] Address: [address] [address] Performed By: #### 5 7021-8 ####[facility] LABCLIA [id number] [place] [address] Platelets (Bld) [#/Vol] 186 10*3/uL Normal 150-400 [facility] Comment on above: Order Comment: Speci men Type: BLOOD SPECIMENOrdering Facility: [facility] Address: [address] Performed By: #### 5 7021-8 ####[facility] LABIA [id number] [place] [address] RBC (Bld) [#/Vol] 3.54 10*6/uL Low 3.90-5.20 [facility] Comment on above: Order Comment: Speci men Type: BLOOD SPECIMENOrdering Facility: [facility] Address: [address] [place] [address] Performed By: #### 5 7021-8 ####[facility] LABCLIA [id number] [place] [address] WBC (Bld) [#/Vol] 5.12 10*3/uL Normal 3.70-11.00 [facility] Comment on above: Order Comment: Speci men Type: BLOOD SPECIMENOrdering Facility: [facility] Address: [address] [address] Performed By: #### 5 7021-8 ####[facility] LABCLIA [id number] [place] [address] GLYCOHEMOGLOBIN A1Con 2022 ADA RECOMMENDATION SEE BELOW Normal [facility] Comment on above: Result Comment: ADA RECOMMENDED LIMIT 4.0 - 6.0 ADA THERAPEUTIC TARGET < 7.0 ACTION SUGGESTED > 7.0 Performed By: #### D ATA1C #### [facility] [address] [address] [address] Ashley Luna Glucose [Mass/Vol] 174 mg/dL Normal [facility] Comment on above: Performed By: #### D ATA1C #### [facility] [address] [address] [address] Ashley Luna HbA1c (Bld) [Mass fraction] 7.7 % Critically high 4.5-6.2 [facility] Comment on above: Performed By: #### D ATA1C #### [facility] [address] [address] [address] Ashley Luna CBC W Auto Differential pane l (Bld)on 02-06-2023 Basophils (Bld) [#/Vol] 10*3/uL Normal <0.11 [facility] Comment on above: Order Comment: Speci men Type: BLOOD SPECIMENOrdering Facility: [facility] Address: [address] [address] Performed By: #### 5 7021-8 ####[facility] LABCLIA [id number] [place] [address] Basophils/100 WBC (Bld) 0.4 % Normal [facility] Comment on above: Order Comment: Speci men Type: BLOOD SPECIMENOrdering Facility: [facility] Address: [address] [place] [address] Performed By: #### 5 7021-8 ####[facility] LABCLIA [id number] [place] [address] Differential cell count method Nom (Bld) Auto Normal [facility] Comment on above: Order Comment: Speci men Type: BLOOD SPECIMENOrdering Facility: [facility] Address: [address] [address] Performed By: #### 5 7021-8 ####[facility] LABCLIA [id number] [place] [address] Eosinophils (Bld) [#/Vol] 0.24 10*3/uL Normal <0.46 [facility] Comment on above: Order Comment: Speci men Type: BLOOD SPECIMENOrdering Facility: [facility] Address: [address] [place] [address] Performed By: #### 5 7021-8 ####[facility] LABCLIA [id number] [place] [address] Eosinophils/100 WBC (Bld) 4.9 % Normal [facility] Comment on above: Order Comment: Speci men Type: BLOOD SPECIMENOrdering Facility: [facility] Address: [address] [place] [address] Performed By: #### 5 7021-8 ####[facility] LABCLIA [id number] [place] [address] Erythrocyte distribution width (RBC) [Ratio] 12.7 % Normal 11.5-15.0 [facility] Comment on above: Order Comment: Speci men Type: BLOOD SPECIMENOrdering Facility: [facility] Address: [address] [place] [address] Performed By: #### 5 7021-8 ####[facility] LABCLIA [id number] [place] [address] Hematocrit (Bld) [Volume fraction] 33.0 % Low 36.0-46.0 [facility] Comment on above: Order Comment: Speci men Type: BLOOD SPECIMENOrdering Facility: [facility] Address: [address] [place] [address] Performed By: #### 5 7021-8 ####[facility] LABCLIA [id number] [place] [address] Hemoglobin (Bld) [Mass/Vol] 10.6 g/dL Low 11.5-15.5 [facility] Comment on above: Order Comment: Speci men Type: BLOOD SPECIMENOrdering Facility: [facility] Address: [address] [place] [address] Performed By: #### 5 7021-8 ####[facility] LABIA [id number] [place] [address] Immature granulocytes (Bld) [#/Vol] 10*3/uL Normal <0.10 [facility] Comment on above: Order Comment: Speci men Type: BLOOD SPECIMENOrdering Facility: [facility] Address: [address] [place] [address] Performed By: #### 5 7021-8 ####[facility] LABIA [id number] [place] [address] Immature granulocytes/100 WBC (Bld) 0.2 % Normal [facility] Comment on above: Order Comment: Speci men Type: BLOOD SPECIMENOrdering Facility: [facility] Address: [address] [place] [address] Performed By: #### 5 7021-8 ####[facility] LABIA [id number] [place] [address] Lymphocytes (Bld) [#/Vol] 1.61 10*3/uL Normal 1.00-4.00 [facility] Comment on above: Order Comment: Speci men Type: BLOOD SPECIMENOrdering Facility: [facility] Address: [address] [address] Performed By: #### 5 7021-8 ####[facility] LABCLIA [id number] [place] [address] Lymphocytes/100 WBC (Bld) 32.7 % Normal [facility] Comment on above: Order Comment: Speci men Type: BLOOD SPECIMENOrdering Facility: [facility] Address: [address] [place] [address] Performed By: #### 5 7021-8 ####[facility] LABCLIA [id number] [place] [address] MCH (RBC) [Entitic mass] 33.8 pg Normal 26.0-34.0 [facility] Comment on above: Order Comment: Speci men Type: BLOOD SPECIMENOrdering Facility: [facility] Address: [address] [place] [address] Performed By: #### 5 7021-8 ####[facility]IA [id number] [place] [address] MCHC (RBC) [Mass/Vol] 32.1 g/dL Normal 30.5-36.0 [facility] Comment on above: Order Comment: Speci men Type: BLOOD SPECIMENOrdering Facility: [facility] Address: [address] [place] [address] Performed By: #### 5 7021-8 ####[facility] LABIA [id number] [place] [address] MCV (RBC) [Entitic vol] 105.1 fL High 80.0-100.0 [facility] Comment on above: Order Comment: Speci men Type: BLOOD SPECIMENOrdering Facility: [facility] Address: [address] [place] [address] Performed By: #### 5 7021-8 ####[facility] LABIA [id number] [place] [address] Monocytes (Bld) [#/Vol] 0.48 10*3/uL Normal <0.87 [facility] Comment on above: Order Comment: Speci men Type: BLOOD SPECIMENOrdering Facility: [facility] Address: [address] [address] Performed By: #### 5 7021-8 ####[facility] LABCLIA [id number] [place] [address] Monocytes/100 WBC (Bld) 9.8 % Normal [facility] Comment on above: Order Comment: Speci men Type: BLOOD SPECIMENOrdering Facility: [facility] Address: [address] [address] Performed By: #### 5 7021-8 ####[facility] LABCLIA [id number] [place] [address] Neutrophils (Bld) [#/Vol] 2.56 10*3/uL Normal 1.45-7.50 [facility] Comment on above: Order Comment: Speci men Type: BLOOD SPECIMENOrdering Facility: [facility] Address: [address] [address] Performed By: #### 5 7021-8 ####[facility] LABCLIA [id number] [place] [address] Neutrophils/100 WBC (Bld) 52.0 % Normal [facility] Comment on above: Order Comment: Speci men Type: BLOOD SPECIMENOrdering Facility: [facility] Address: [address] Performed By: #### 5 7021-8 ####[facility] LABCLIA [id number] [place] [address] Nucleated RBC (Bld) [#/Vol] 10*3/uL Normal <0.01 [facility] Comment on above: Order Comment: Speci men Type: BLOOD SPECIMENOrdering Facility: [facility] Address: [address] [place], [place] [address] Performed By: #### 5 7021-8 ####[facility] LABCLIA [id number] [place] [address] Nucleated RBC/100 WBC (Bld) [Ratio] 0.0 /100 WBC Normal [facility] Comment on above: Order Comment: Speci men Type: BLOOD SPECIMENOrdering Facility: [facility] Address: [address] [place] [address] Performed By: #### 5 7021-8 ####[facility] LABCLIA [id number] [place] [address] Platelet mean volume (Bld) [Entitic vol] 9.0 fL Normal 9.0-12.7 [facility] Comment on above: Order Comment: Speci men Type: BLOOD SPECIMENOrdering Facility: [facility] Address: [address] [place] [address] Performed By: #### 5 7021-8 ####[facility]IA [id number] [place] [address] Platelets (Bld) [#/Vol] 189 10*3/uL Normal 150-400 [facility] Comment on above: Order Comment: Speci men Type: BLOOD SPECIMENOrdering Facility: [facility] Address: [address] [place] [address] Performed By: #### 5 7021-8 ####[facility]IA [id number] [place] [address] RBC (Bld) [#/Vol] 3.14 10*6/uL Low 3.90-5.20 [facility] Comment on above: Order Comment: Speci men Type: BLOOD SPECIMENOrdering Facility: [facility] Address: [address] [place] [address] Performed By: #### 5 7021-8 ####[facility] LABCLIA [id number] [place] [address] WBC (Bld) [#/Vol] 4.92 10*3/uL Normal 3.70-11.00 [facility] Comment on above: Order Comment: Speci men Type: BLOOD SPECIMENOrdering Facility: [facility] Address: [place] [address] Performed By: #### 5 7021-8 ####[facility] LABCLIA [id number] [place] [address] Basophils (Bld) [#/Vol] <0.11 k/uL [facility] Basophils/100 WBC (Bld) 0.4 % [facility] Differential cell count method Nom (Bld) Auto [facility] Eosinophils (Bld) [#/Vol] 0.24 10*3/uL <0.46 k/uL [facility] Eosinophils/100 WBC (Bld) 4.9 % [facility] Erythrocyte distribution width (RBC) [Ratio] 12.7 % 11.5 - 15.0 % [facility] Hematocrit (Bld) [Volume fraction] 33.0 % Low 36.0 - 46.0 % [facility] Hemoglobin (Bld) [Mass/Vol] 10.6 g/dL Low 11.5 - 15.5 g/dL [facility] Immature granulocytes (Bld) [#/Vol] <0.10 k/uL [facility] Immature granulocytes/100 WBC (Bld) 0.2 % [facility] Lymphocytes (Bld) [#/Vol] 1.61 10*3/uL 1.00 - 4.00 k/uL [facility] Lymphocytes/100 WBC (Bld) 32.7 % [facility] MCH (RBC) [Entitic mass] 33.8 pg 26.0 - 34.0 pg [facility] MCHC (RBC) [Mass/Vol] 32.1 g/dL 30.5 - 36.0 g/dL [facility] MCV (RBC) [Entitic vol] 105.1 fL High 80.0 - 100.0 fL [facility] Monocytes (Bld) [#/Vol] 0.48 10*3/uL <0.87 k/uL [facility] Monocytes/100 WBC (Bld) 9.8 % [facility] Neutrophils (Bld) [#/Vol] 2.56 10*3/uL 1.45 - 7.50 k/uL [facility] Neutrophils/100 WBC (Bld) 52.0 % [facility] Nucleated RBC (Bld) [#/Vol] <0.01 k/uL [facility] Nucleated RBC/100 WBC (Bld) [Ratio] 0.0 /100 WBC [facility] Platelet mean volume (Bld) [Entitic vol] 9.0 fL 9.0 - 12.7 fL [facility] Platelets (Bld) [#/Vol] 189 10*3/uL 150 - 400 k/uL [facility] RBC (Bld) [#/Vol] 3.14 10*6/uL Low 3.90 - 5.2 0 m/uL [facility] WBC (Bld) [#/Vol] 4.92 10*3/uL 3.70 - 11. 00 k/uL [facility] CNOVSPon 02-06-2023 CNOVSP Visit (SP) Office ([place]) HENRIETTA MAGANA ([id number]) 1940 F Date Time Provider Department 02/06/23 9:45 AM ATIF YOUSIF During your visit today, we recorded the following information about you: Temperature Pulse Respiration Blood pressure 97.6 degrees 77/minute 16/minute 129/90 Height 1.524 m Atif Yousif MD 2023 6:43 AM Signed PATIENT NAME: Henrietta Magana DATE: 02/06/2023 PRIMARY CARE PHYSICIAN: Dr. Alex Lloyd OTHER PHYSICIANS: Dr. Holden (pain management), Dr. Flores, Dr. Amin Portions of this encounter note have been copied from the note from 11/11/2022 and has been updated where appropriate, and reflect my current medical decision making from today. CC: This is an 83 year old female with chronic anemia, seen for scheduled follow-up. INTERIM HISTORY: Since the patient's last visit here she has had no significant medical changes. She remains on Aranesp as needed for hemoglobin less than 11, last given 12/25/2022. Currently she feels well with no particular complaints. No unusual pain or other systemic symptoms. No signs of bleeding. Her birthday is today and she turns 83! MEDICATIONS: HYDROcodone-Acetamino phen (NORCO) 7.5-325 mg per tablet TAKE 1 TABLET BY MOUTH 3 TIMES A DAY NEEDED FOR PAIN calcium carbonate/vitamin D3 (CALCIUM 600 + D ORAL) Take by mouth. famotidine (PEPCID) 20 mg tablet Take by mouth twice daily. amLODIPine (NORVASC) 5 mg tablet fenofibrate (LOFIBRA) 134 mg capsule Take 134 mg by mouth daily at bedtime. mdlqc-3x-jzh-epa-fish oil 300-1,000 mg cpDR Take by mouth. carvedilol (COREG) 6.25 mg tablet Take 1 tablet by mouth twice daily. gabapentin (NEURONTIN) 100 mg capsule Take 300 mg by mouth three times daily. ALLERGIES: Sulfa (Sulfonamide Antibiotics) and Venofer [Iron Sucrose] PAST MEDICAL HISTORY: PAST MEDICAL HISTORY Diagnosis Date Anemia Arthritis Chronic renal insufficiency Crohn's disease (HCC) Degenerative joint disease GERD (gastroesophageal reflux disease) Hyperlipidemia Hypertension Iron deficiency Osteoarthritis PAST SURGICAL HISTORY: PAST SURGICAL HISTORY Procedure Laterality Date BACK SURGERY HX 2004 Dr. Guillen CATARACT SURGERY, COMPLEX COLONOSCOPY EGD HYSTERECTOMY HX KNEE SURGERY HX 2009 TKR. Left REVIEW OF SYSTEMS: General: No weight loss, malaise or fevers. Increasing fatigue. HEENT: Negative for frequent or significant headaches. No changes in hearing or vision, no nose bleeds or other nasal problems. Respiratory: Negative for cough, wheezing or shortness of breath. Cardiovascular: Negative for chest pain, leg swelling or palpitations. GI: Negative for abdominal discomfort, blood in stools or black stools or change in bowel habits. : No history of dysuria, frequency or incontinence. Musculoskeletal: Positive for joint pain and swelling and muscle pain- chronic. Skin: Negative for lesions, rash, and itching. Hematology/Lymphology : Negative for prolonged bleeding, bruising easily or swollen nodes. Neuro: No history of headaches, syncope, paralysis, seizures or tremors. PHYSICAL EXAM: Vitals: BP 129/90 Pulse 77 Temp 36.4 ?C (97.6 ?F) Resp 16 Ht 152.4 cm (5') SpO2 99% BMI 30.08 kg/m? ECOG 1 Exam limited to gross visualization where appropriate due to COVID-19. Gen.: This is an age-appropriate patient in no acute distress. Head: Appears atraumatic with no visible lesions. Eyes: Pupils equally round and reactive to light, extraocular muscles are intact. Neck: Supple. Mouth: Masked. Respiratory: Appears to be respiring comfortably. Neurologic: Nonfocal to gross visualization. Alert and oriented ?3. Psychiatric: No evidence of inappropriate anxiety or depression. Skin: Visible areas of skin without rash, lesions, wounds or petechiae. LABORATORY DATA: Hemoglobin (g/dL) Date Value 02/06/2023 10.6 12/13/2021 11.6 Hematocrit (%) Date Value 02/06/2023 33.0 12/13/2021 37.0 WBC (k/uL) Date Value 02/06/2023 4.92 12/13/2021 4.90 Platelet Count (k/uL) Date Value 02/06/2023 189 12/13/2021 213 ASSESSMENT/PLAN: 1. 285.9 Anemia (primary diagnosis) Severe anemia initially discovered February 2007 (hemoglobin 6.7). Bone marrow biopsy April 2007 nondiagnostic. Etiology multifactorial - in part due to iron deficiency from GI bleeding, in part due to CRI. Shortly after initial presentation the patient received multiple blood transfusions, iron infusions, and EPO injections with resolution of her anemia. The patient developed recurrent anemia in January 2019 due to an upper GI bleed from peptic ulcer disease. With appropriate management her anemia initially returned to baseline. However, since 2020 her anemia has worsened as a result of chronic renal insufficiency and the patient became symptomatic with severe fatigue. For the treatment o (more content not included)... Normal [facility] Comprehensive metabolic 2000 panelon 02-06-2023 Albumin [Mass/Vol] 4.1 g/dL Normal 3.9-4.9 [facility] Comment on above: Order Comment: Speci men Type: BLOOD SPECIMENOrdering Facility: [facility] Address: [address] [place] [id number] Performed By: #### 2 4323-8 ####[facility] LABCLIA [id number] [place] [address] ALP [Catalytic activity/Vol] 27 U/L Low 34-123 [facility] Comment on above: Order Comment: Speci men Type: BLOOD SPECIMENOrdering Facility: [facility] Address: [address] [place] [address] Performed By: #### 2 4323-8 ####[facility] LABCL[facility] [id number] [place] [address] ALT [Catalytic activity/Vol] 9 U/L Normal 7-38 [facility] Comment on above: Order Comment: Speci men Type: BLOOD SPECIMENOrdering Facility: [facility] Address: [address] [place] [address] Performed By: #### 2 4323-8 ####[facility] LABCLIA [id number] [place] [address] Anion gap [Moles/Vol] 9 mmol/L Normal 9-18 [facility] Comment on above: Order Comment: Speci men Type: BLOOD SPECIMENOrdering Facility: [facility] Address: [address] [address] Performed By: #### 2 4323-8 ####[facility] LABCLIA [id number] [place] [address] AST [Catalytic activity/Vol] 12 U/L Low 13-35 [facility] Comment on above: Order Comment: Speci men Type: BLOOD SPECIMENOrdering Facility: [facility] Address: [address] [place] [address] Performed By: #### 2 4323-8 ####[facility] LABCLIA [id number] [place] [address] Bilirubin [Mass/Vol] 0.3 mg/dL Normal 0.2-1.3 [facility] Comment on above: Order Comment: Speci men Type: BLOOD SPECIMENOrdering Facility: [facility] Address: [address] [place] [address] Performed By: #### 2 4323-8 ####[facility] LABCLIA [id number] [place] [address] Calcium [Mass/Vol] 9.5 mg/dL Normal 8.5-10.2 [facility] Comment on above: Order Comment: Speci men Type: BLOOD SPECIMENOrdering Facility: [facility] Address: [address] [place] [address] Performed By: #### 2 4323-8 ####[facility] LABCLIA [id number] [place] [address] Chloride [Moles/Vol] 100 mmol/L Normal 97-105 [facility] Comment on above: Order Comment: Speci men Type: BLOOD SPECIMENOrdering Facility: [facility] Address: [address] [place] [address] Performed By: #### 2 4323-8 ####[facility] LABCLIA [id number] [place] [address] CO2 [Moles/Vol] 26 mmol/L Normal 22-30 [facility] Comment on above: Order Comment: Speci men Type: BLOOD SPECIMENOrdering Facility: [facility] Address: [address] [place] [address] Performed By: #### 2 4323-8 ####[facility] LABCLIA [id number] [place] [address] Creatinine [Mass/Vol] 1.56 mg/dL High 0.58-0.96 [facility] Comment on above: Order Comment: Speci men Type: BLOOD SPECIMENOrdering Facility: [facility] Address: [address] [place] [address] Performed By: #### 2 4323-8 ####[facility] LABCLIA [id number] [place] [address] ESTIMATED GLOMERULAR FILTRATION RATE 33 mL/min/1.73m??? Low >=60 [facility] Comment on above: Order Comment: Speci men Type: BLOOD SPECIMENOrdering Facility: [facility] Address: [address] [id number] Result Comment: Lady mated Glomerular Filtration Rate (eGFR) is calculated using the 2020 CKD-EPI creatinine equation. This equation utilizes serum creatinine, sex, and age as parameters. The creatinine assay has traceable calibration to isotope dilution-mass spectrometry. Refer to KDIGO guidelines for clinical interpretation. In patients with unstable renal function, e.g. those with acute kidney injury, the eGFR may not accurately reflect actual GFR. Performed By: #### 2 4323-8 ####[facility] LABCLIA [id number] [place] [address] Glucose [Mass/Vol] 246 mg/dL High 74-99 [facility] Comment on above: Order Comment: Margo hernandez Type: BLOOD SPECIMENOrdering Facility: [facility] Address: [address] [place] [address] Result Comment: The [place] [employer] (ADA) provides guidance for cutoff values for fasting glucose and random glucose. The ADA defines fasting as no caloric intake for at least 8 hours. Fasting plasma glucose results between 100 to 125 mg/dL indicate increased risk for diabetes (prediabetes). Fasting plasma glucose results greater than or equal to 126 mg/dL meet the criteria for diagnosis of diabetes. In the absence of unequivocal hyperglycemia, results should be confirmed by repeat testing. In a patient with classic symptoms of hyperglycemia or hyperglycemic crisis, random plasma glucose results greater than or equal to 200 mg/dL meet the criteria for diagnosis of diabetes. Reference: Standards of Medical Care in Diabetes 2016, [place] [employer]. Diabetes Care. 2016.39(Suppl 1). Performed By: #### 2 4323-8 ####[facility] LABIA [id number] [place] [address] Potassium [Moles/Vol] 4.6 mmol/L Normal 3.7-5.1 [facility] Comment on above: Order Comment: Margo hernandez Type: BLOOD SPECIMENOrdering Facility: [facility] Address: [address] [phone] Performed By: #### 2 4323-8 ####[facility] LABCLIA [id number] [place] [address] Protein [Mass/Vol] 6.7 g/dL Normal 6.3-8.0 [facility] Comment on above: Order Comment: Speci men Type: BLOOD SPECIMENOrdering Facility: [facility] Address: [address] [place] [address] Performed By: #### 2 4323-8 ####[facility] LABCLIA [id number] [place] [address] Sodium [Moles/Vol] 135 mmol/L Low 136-144 [facility] Comment on above: Order Comment: Speci men Type: BLOOD SPECIMENOrdering Facility: [facility] Address: [address] [place] [address] Performed By: #### 2 4323-8 ####[facility] LABCLIA [id number] [place] [address] Urea nitrogen [Mass/Vol] 34 mg/dL High 7-21 [facility] Comment on above: Order Comment: Speci men Type: BLOOD SPECIMENOrdering Facility: [facility] Address: [address] [place] [address] Performed By: #### 2 4323-8 ####[facility] LABCLIA [id number] [place] [address] Albumin [Mass/Vol] 4.1 g/dL 3.9 - 4.9 g/dL [facility] ALP [Catalytic activity/Vol] 27 U/L Low 34 - 123 U/L [facility] ALT [Catalytic activity/Vol] 9 U/L 7 - 38 U/L [facility] Anion gap [Moles/Vol] 9 mmol/L 9 - 18 mmol/L [facility] AST [Catalytic activity/Vol] 12 U/L Low 13 - 35 U/L [facility] Bilirubin [Mass/Vol] 0.3 mg/dL 0.2 - 1 .3 mg/dL [facility] Calcium [Mass/Vol] 9.5 mg/dL 8.5 - 10. 2 mg/dL [facility] Chloride [Moles/Vol] 100 mmol/L 97 - 10 5 mmol/L [facility] CO2 [Moles/Vol] 26 mmol/L 22 - 30 mmol/L [facility] Creatinine [Mass/Vol] 1.56 mg/dL High 0.58 - 0.96 mg/dL [facility] Estimated Glomerular Filtration Rate 33 mL/min/1.73m Low >=60 mL/min/1.73m [facility] Glucose [Mass/Vol] 246 mg/dL High 74 - 99 mg/dL [facility] Potassium [Moles/Vol] 4.6 mmol/L 3.7 - 5.1 mmol/L [facility] Protein [Mass/Vol] 6.7 g/dL 6.3 - 8.0 g/dL [facility] Sodium [Moles/Vol] 135 mmol/L Low 136 - 144 mmol/L [facility] Urea nitrogen [Mass/Vol] 34 mg/dL High 7 - 21 mg/dL [facility] FERRITIN BLDon 02-06-2023 Ferritin [Mass/Vol] 307.0 ng/mL High 14.7 - 2 05.1 ng/mL [facility] Ferritin SerPl-mCncon 2022 Ferritin [Mass/Vol] 307.0 ng/mL High 14.7-205.1 [facility] Comment on above: Order Comment: Speci men Type: BLOOD SPECIMENOrdering Facility: [facility] Address: [address] [place] [address] Performed By: #### 2 276-4, 85547-5 ####[facility] LABCLIA [id number] [place] [address] [place] Iron and Iron binding capaci ty panelon 02-06-2023 Iron [Mass/Vol] 97 ug/dL 41 - 186 ug/dL [facility] Iron binding capacity [Mass/Vol] 308 ug/dL 232 - 386 ug/dL [facility] Iron/TIBC [Molar ratio] 31.5 % 15.0 - 57.0 % [facility] Iron [Mass/Vol] 97 ug/dL Normal 41-186 [facility] Comment on above: Order Comment: Speci men Type: BLOOD SPECIMENOrdering Facility: [facility] Address: [address] Performed By: #### 2 276-4, 27653-9 ####[facility] [id number] [address] Iron binding capacity [Mass/Vol] 308 ug/dL Normal 232-386 [facility] Comment on above: Order Comment: Speci men Type: BLOOD SPECIMENOrdering Facility: [facility] Address: [address] [address] Performed By: #### 2 276-4, 45960-8 ####[facility] [id number] [address] Iron/TIBC [Molar ratio] 31.5 % Normal 15.0-57.0 [facility] Comment on above: Order Comment: Speci men Type: BLOOD SPECIMENOrdering Facility: [facility] Address: [address] [address] Performed By: #### 2 276-4, 61616-4 ####[facility] [id number] [address] [facility] Coding Summary.on 12-30-2022 Coding Summary. CD:[id number] G h0bWw+PGhlYWQ+EI7NFND aE41buKJzkE3sA1NEWAwT SywgQVBQTElOSyIgbmFtZ E1lbATzIGAy IC8+DI5yJYPuZxpqhACky 2P5eVF3L76pmy1xOSvspM D4HMTgPqBklaowk4xyiLk 6IDcuNmluOyBt IWOiwD03AQK5pR18Qa56j TEyxHEed8chxSc3NxUcFV DdKXK8sWxsDAccz8EjZLQ aU17fjIFkx6B5 XSZypDemsHKvPhSjeNM0c F3eBCpjggbla3bfeauhTm t1jy61wNWqf2D9cBU5B5O dyvE2VIKkgJPr KcxwcFFTeV9bbszqb5pyc nobHgKaSCEwGHb1CIg3VF MlzJvgMbUuKQ52TKE5YWA dcxVmJ5HhVCRs fLvdZaL3c8X8Em1ZY6FQM npkD3BWOFCGQQwnqJB+PC 37om68I9FpDjtxIxi6IJL cQAA2dKM9kC0v AJAiIJszm3A7cPQ4A4Ucg yXxhk7bk7stWABeGOrvM5 9baMNou7D9SQEabXC4ORD jpKzmVhRpdC10 Oyc+XUAljXift3TuVyqxn 3mst8emjFd3DzbkMSKtmd OssHktZPF9g2JnBp7oUWS dlXI5uYU0lT0i HxZiXuF9JMhaE923BnAmm WKuDpmxC00mQ9UbrLV+PH IkGjn7BVOtnPrbFC7yH8D hZGRpbmctbGVm vSuvVA3cPMAgkhjkBGVle L2tIORdA7s0FoSeYtB0ND xuR5OjOTPiyjljCf34dB9 pRqMoJiJ5XNul B6CtydX9CARxpDYhXDxsT VU4X07sj9B7LPZkDMUqAK U3qYG4tA9ehDgdismyjGZ mdDsgdmVydGlj WNmnGJppP490OHEwwTfeI kNvZGluZyBEYXRlOiAgMD MvMTMvMjAyMzwvdGQ+PHR gTEH2mTrdTIFa dYCxRNrlEb9lfYqqyEnyB N8hNLTtbgniLLUacI5tTP XlrTCzxWngJW6iFTVnjwf cy129NdFoURR4 FHBdkRBhZ7WbjZ9rMhUpE EIbKAPiP7GjtBYgINkaS5 11MRzwJnX3JVQyfmRoD3T sLWFsaWduOiB0 g9E5St7De9UygnfcN2Kik KDgTpIcCousPBi3W9HdFb wvdHI+GE97SUJvTZ22SWm 1CVU3qRavIOzb BNMnU3PxsH5bKnZsZSKnB GRkOyc+PHRhYmxlIHdpZH RoPScxMDAlJyBzdHlsZT0 bXr6nSPLxHMSr vJcbkEYpIrSix3htSKCsE MbvZR7doVxpC1ReqRY3YS Vwo9i5Ca28L88kQ5FxaIS +JHRijDX9pND0 hI1dKnVxUgC8ZZrpN845Z nGsxPJkInxsy4fsm4vyzI g3TaG8GNFujfFlzSrbZJR 2j3RrKj65R94g IHdpZHRoPSIxNSUiIHZhb Hefbs3yyE6wKq8+PGNvbC H7qFA2aB8sXgZfWwA5TGn gK422WlDfwFKc Fqwwx4fwr6slxOy7RaQtE EBqroXekXmzJOX0g9WsPy 49R6SkcBiof4BbMsp3jg4 5lFNoc7J9nRY0 B9QcJHQymnmuiHUmoJxhO G3dHOZcrcsdQGWacP2bDZ TiB3g0BhTdIpA3RAlpJ6E bgqD6NDNlmLJx MXXxhHBKfE7fvmcbs7mop qhmJvRwVJAsOQk6YUb2PH RnaIgbTyMbXSQ8JrV7KBP 0rOOavT1etYhi ioftkN4pMoi+TIX3iRShw RMEMA6gGcljzDO+PHRkIH A7yEqhDVfcWMMirC1jBIZ sW7b1NgDyQoG1 TPcgO2QqxsP6MTSfhRZxE QPrlKZEkC6tneueg3hopz yhOgVmOGHgNUw0QQm0LKM saWduOiBsZWZ0 SlT9MDV0rUBasB9mrRvqg rhqqI3vNbr+QmlydGggRG S5ZYf0G9VzZfy1ABZrmLz eRT3kiWKgEMng Go7thLoysYutRP8gXNYdm igkp287CuOok9ocACIywS YtBRddYLV0C45dd0L4YKI nWQMsDRM5mRP9 wS6waWuanxamrSBoaIlmy gNuoOquADjxJCvqP451GR WaeKumRjIjVYr7I8KiSxj 7NLQtxNevCB3k cIRoPIxkIw5aaLruvLcgG F3aBPLnavnef513JeKig8 gfIJKayDZwZOgbSTT4R06 nz0J4RVCsUXWf WGU4jTL7vU8neRhllrhnl GVmdDsgdmVydGljYWwtYW wzP265FXRwkZorYcXlsIz 5R7PlRef5TCIc mCreOR4ieQHvTPymSk7pv DbipLkeEJ5bZHExwrvnh1 39QtEpe1qpGPRanZZbLKy kBKF7I50fs6Q8 JMJfUTFcRJL6rJJ2iG7ft GlnbjogbGVmdDsgdmVydG lnFGvuHQthG640VFNetEh nPlBhdGllbnQg XFoeSQh0A0OwCdkbqWN+P F46ITOmOH48zCYlmCVak2 ioaQb0FaYnPTCvJBX8kCn dDJijn6NkKQEi M79ybJXll3G6PHNgmHodb YKhNjBkoBI8wM2yUHpmks amf2inwvybIgzon7akgv9 9sN00A09bBGnu ZHRoPSIzMCUiIHZhbGlnb l2bsR0zJz8+AHAxqPJ6gK E6eH7iIRFzFfK9MFwmZ99 9InRvcCIvPjxj e2gkg3cozKp5FbE1LKAxk pEhjMdgVTB8x3CnRc75L3 9sIHdpZHRoPSIyMCUiIHZ msOsbte6zpL0g Ii8+MQLtxGY1dKH2cR0cV cAcJkD4PChuB826RjIykF NgUzscF21oM2KtdNC+PHR vWso1XBQrgExu IN2azTSxKHfqNi1sXRK1X gMqKzDlBPmwP6SdGKQobz mpsqjfqDK6IHRsXFDdlD2 8Bn6mhVzxIMEa jRUKoI3ntrwaq5ycbgweF lZaNFDeBUi5LDq8RHWpiF owUuHgUZP6KiL9KPW1aWR paE7ogJavfcvv bL1jD2ZpIZZesgxiWw89j T6lDdEoEnJ3XQnsCmh+Q0 dIOUWkFQ9WPcQEDKU4C0K uSwi0LOEjwObj FL6tqXUbBQohVc1fhPxyq RaaDM7cPHRzqknaKDQtvL 6kBADbpGZqmKrdHR7oIOC fmxgwp217BxHx DNH9CLEbaWBfP8JfsK0aY eFaQMPcWVQiV6WykFNcMA abE923TMilWpM5YIVzydM tT6JkKRTihNxo CfT3z9N8Jr8zJQ4rME8aA NMqSY95OH25dZAwe3P8oT V3I2WfJSKdmtpindhteFG 4BVSrQBLthA83 gFPhSVwpQt6oa3B5u863G PTdGECsuM57Av8ysLzoBJ AxfHDFkM9arptqa4wwaea gIzAwMDAwMDt0 DTa2JDInlPcvEoXuFWA3I qZ6VUU9vEJtkW9ijZefnn ivlA6pBob+ODIgWWVhcnM 6J1PiShw7KZZn bDdqMB3xlGPtUNwdSx1xu EubfNnuYG7pDQPohxryFM DtpG9mHWDdlYVysBplBE9 xJVQzlsvho651 FvNhWYB1EYJntULjN7Fcg C9cXfRiVJYaKFNeI8OgaT AqNWjfE037IFylZiX6QGW toxCeO0KzZRUo zGxuVeR6k3C5Px5CUZ6ww QT4Q9IgAch5CNKcnBcxOO 6vaPUlYCowUn7lgUompWs wUK8zQQOuwuec UZKplV3cZIRyjRXubGvyM U7xFPOwyyynr266JfDtIA X5UUIwqIOnI7WpxW7vDzY gYLAuKTQsX5Tf vTOoNXvmR125AUxiJfE2F JIeagAgH2BtSIPiaRjqVc Z2g2M1Fm5BPWhqRQ7resD cAE1wzzB8D0Em PjwvdHI+TZ73EYErIN55e FHdnODez8uisFt2LjVkRB YpAOM9iAfjQHzbu6MnRAP uI04xtMZcp7N9 YMFzkBnnmWVtHjJghWH2i H7gZEgvoqkoy5ybnwsmVk bha0oobq52rT26L83xDWe pZHRoPSIzMCUi FGTqzNnwsh6lhQ8hTn8+P AYudBM9cVT8uT9zOxLrZt Q0BHltE767EvLpqGZxQdf kr8qvc9yknGc2 AiNeHKCvpuTtbRvtDQM2u 3PtNz54G80wEEevVCNsPC TrPGKxWOHmnFdmbm8ioZ3 wIi8+XV1gr5ws ny85xX74iDG+VTGkARZ1y MneWLhlLJMplL5cKWrnSr W4EDIuAoPvyA49tEVzRYr lEr0quPsdcPwo LW4kSUWqghtia927NwEfx 2hhHWNajVKhSIiyNJQ8N1 1nh5N0WOGgVMDhXSN2pZL 2kY2gkSlxjkmz bGVmdDsgdmVydGljYWwtY LvqK206KRKswSfqViEbxI FlV8ggizYBBN7rYyplqEV +QGKvGTW0sWis SGbkEWVyaD7qTGUsL5m3W pDeDqF4GXgtR5UbxqL0CZ HicBXjZKIwqULWaI5bqri ry5lduxmnVnSu HBCpFDe6GTp9ATTxhZqhC pRmUMH3WeN7BNU1lIVuiV 8jiYuavqldkY9pOng+Rkl OOjwvdGQ+PHRk YMU6hCtxEXlbTRLuwS2gX RXjZ9n6VrSjFuB7FHxwQ7 GfqgV1DDNmyXIrQRKtpKH MxO9lluwxh9mt aboxQoRsJOOsOPr4DZy8N DAszWskRtSxQDN1VkF5DA C0yYGwoH3sbNqzpyoclP6 wOyc+TVJOOjwv dGQ+YHVwYSB4yTzhUZqvB GCwzJ8nRKMzP0p4VtOwZt A2ZHrgY3KhvxN6OFKxxBP lDIFusBOJyK4n wqvzm9ktrwxjWbHeQUYtW Og0QZn4JYOhqWokSmMtHC V8YnB3IRT9oVDvfK0iwPi owjqjfT9qFrk+ QBJ9QNC1JD34LR39B4ChP jwvdGFibGU+PHRhYmxlIH dpZHRoPScxMDAlJyBzdHl oLF1mZr5kUTSp LWNv (more content not included)... [facility] Consent for Treatmenton Consent for Treatment .[id number]# 1.00CD:127 [facility] Legal Correspondence Officeo n 12-26-2022 Legal Correspondence Office [id number]# 1.00CD:127 Normal [facility] Office/Clinic Note-Physician on 12-26-2022 Office/Clinic Note-Physician [id number]#1. 00CD:127 Normal [facility] Patient Correspondenceon Patient Correspondence [id number]#1. 00CD:127 Normal [facility] Patient Correspondence [id number]#1. 00CD:127 Normal [facility] Patient Correspondence [id number]#1. 00CD:127 Normal [facility] Patient History Officeon Patient History Office [id number]#1. 00CD:127 Normal [facility] CBC W Auto Differential pane l (Bld)on 12-25-2022 Basophils (Bld) [#/Vol] 0.04 10*3/uL Normal <0.11 [facility] Comment on above: Order Comment: Speci men Type: BLOOD SPECIMENOrdering Facility: [facility] Address: [address] [place] [address] Performed By: #### 5 7021-8 ####[facility] [id number] [place] [address] Basophils/100 WBC (Bld) 0.9 % Normal [facility] Comment on above: Order Comment: Speci men Type: BLOOD SPECIMENOrdering Facility: [facility] Address: [address] [place] [address] Performed By: #### 5 7021-8 ####[facility] [id number] [place] [address] Differential cell count method Nom (Bld) Auto Normal [facility] Comment on above: Order Comment: Speci men Type: BLOOD SPECIMENOrdering Facility: [facility] Address: [address] [address] Performed By: #### 5 7021-8 ####[facility] [id number] [place] [address] Eosinophils (Bld) [#/Vol] 0.21 10*3/uL Normal <0.46 [facility] Comment on above: Order Comment: Speci men Type: BLOOD SPECIMENOrdering Facility: [facility] Address: [address] [address] Performed By: #### 5 7021-8 ####[facility] [id number] [place] [address] Eosinophils/100 WBC (Bld) 4.8 % Normal [facility] Comment on above: Order Comment: Speci men Type: BLOOD SPECIMENOrdering Facility: [facility] Address: [address] [address] Performed By: #### 5 7021-8 ####[facility] [id number] [place] [address] Erythrocyte distribution width (RBC) [Ratio] 13.1 % Normal 11.5-15.0 [facility] Comment on above: Order Comment: Speci men Type: BLOOD SPECIMENOrdering Facility: [facility] Address: [address] [place] [address] Performed By: #### 5 7021-8 ####[facility] [id number] [place] [address] Hematocrit (Bld) [Volume fraction] 32.5 % Low 36.0-46.0 [facility] Comment on above: Order Comment: Speci men Type: BLOOD SPECIMENOrdering Facility: [facility] Address: [address] [place] [address] Performed By: #### 5 7021-8 ####[facility] [id number] [place] [address] Hemoglobin (Bld) [Mass/Vol] 10.5 g/dL Low 11.5-15.5 [facility] Comment on above: Order Comment: Speci men Type: BLOOD SPECIMENOrdering Facility: [facility] Address: [address] [address] Performed By: #### 5 7021-8 ####[facility] [id number] [place] [address] Immature granulocytes (Bld) [#/Vol] 10*3/uL Normal <0.10 [facility] Comment on above: Order Comment: Speci men Type: BLOOD SPECIMENOrdering Facility: [facility] Address: [address] [address] Performed By: #### 5 7021-8 ####[facility] [id number] [place] [address] Immature granulocytes/100 WBC (Bld) 0.5 % Normal [facility] Comment on above: Order Comment: Speci men Type: BLOOD SPECIMENOrdering Facility: [facility] Address: [address] [address] Performed By: #### 5 7021-8 ####[facility] [id number] [place] [address] Lymphocytes (Bld) [#/Vol] 1.27 10*3/uL Normal 1.00-4.00 [facility] Comment on above: Order Comment: Speci men Type: BLOOD SPECIMENOrdering Facility: [facility] Address: [address] [address] Performed By: #### 5 7021-8 ####[facility] [id number] [place] [address] Lymphocytes/100 WBC (Bld) 29.3 % Normal [facility] Comment on above: Order Comment: Speci men Type: BLOOD SPECIMENOrdering Facility: [facility] Address: [address] [address] Performed By: #### 5 7021-8 ####[facility] [id number] [place] [address] MCH (RBC) [Entitic mass] 33.8 pg Normal 26.0-34.0 [facility] Comment on above: Order Comment: Speci men Type: BLOOD SPECIMENOrdering Facility: [facility] Address: [address] [place] [address] Performed By: #### 5 7021-8 ####[facility] [id number] [place] [address] MCHC (RBC) [Mass/Vol] 32.3 g/dL Normal 30.5-36.0 [facility] Comment on above: Order Comment: Speci men Type: BLOOD SPECIMENOrdering Facility: [facility] Address: [address] [place] [address] Performed By: #### 5 7021-8 ####[facility] LABIA [id number] [place] [address] MCV (RBC) [Entitic vol] 104.5 fL High 80.0-100.0 [facility] Comment on above: Order Comment: Speci men Type: BLOOD SPECIMENOrdering Facility: [facility] Address: [address] [place] [address] Performed By: #### 5 7021-8 ####[facility] [id number] [place] [address] Monocytes (Bld) [#/Vol] 0.43 10*3/uL Normal <0.87 [facility] Comment on above: Order Comment: Speci men Type: BLOOD SPECIMENOrdering Facility: [facility] Address: [address] [place] [address] Performed By: #### 5 7021-8 ####[facility] [id number] [place] [address] Monocytes/100 WBC (Bld) 9.9 % Normal [facility] Comment on above: Order Comment: Speci men Type: BLOOD SPECIMENOrdering Facility: [facility] Address: [address] [address] Performed By: #### 5 7021-8 ####[facility] [id number] [place] [address] Neutrophils (Bld) [#/Vol] 2.36 10*3/uL Normal 1.45-7.50 [facility] Comment on above: Order Comment: Speci men Type: BLOOD SPECIMENOrdering Facility: [facility] Address: [address] [address] Performed By: #### 5 7021-8 ####[facility] [id number] [place] [address] Neutrophils/100 WBC (Bld) 54.6 % Normal [facility] Comment on above: Order Comment: Speci men Type: BLOOD SPECIMENOrdering Facility: [facility] Address: [address] [address] Performed By: #### 5 7021-8 ####[facility] [id number] [place] [address] Nucleated RBC (Bld) [#/Vol] 10*3/uL Normal <0.01 [facility] Comment on above: Order Comment: Speci men Type: BLOOD SPECIMENOrdering Facility: [facility] Address: [address] [address] Performed By: #### 5 7021-8 ####[facility] [id number] [place] [address] Nucleated RBC/100 WBC (Bld) [Ratio] 0.0 /100 WBC Normal [facility] Comment on above: Order Comment: Speci men Type: BLOOD SPECIMENOrdering Facility: [facility] Address: [address] [place] [address] Performed By: #### 5 7021-8 ####[facility] [id number] [place] [address] Platelet mean volume (Bld) [Entitic vol] 8.9 fL Low 9.0-12.7 [facility] Comment on above: Order Comment: Speci men Type: BLOOD SPECIMENOrdering Facility: [facility] Address: [address] [place] [address] Performed By: #### 5 7021-8 ####[facility] [id number] [place] [address] Platelets (Bld) [#/Vol] 191 10*3/uL Normal 150-400 [facility] Comment on above: Order Comment: Speci men Type: BLOOD SPECIMENOrdering Facility: [facility] Address: [address] [place] [address] Performed By: #### 5 7021-8 ####[facility]IA [id number] [place] [address] RBC (Bld) [#/Vol] 3.11 10*6/uL Low 3.90-5.20 [facility] Comment on above: Order Comment: Speci men Type: BLOOD SPECIMENOrdering Facility: [facility] Address: [address] [place] [address] Performed By: #### 5 7021-8 ####[facility]IA [id number] [place] [address] WBC (Bld) [#/Vol] 4.33 10*3/uL Normal 3.70-11.00 [facility] Comment on above: Order Comment: Speci men Type: BLOOD SPECIMENOrdering Facility: [facility] Address: [address] [place] [address] Performed By: #### 5 7021-8 ####[facility] LABIA [id number] [place] [address] MG MAMM SCREEN 3D SHARIF CADon 12-11-2022 MG MAMM SCREEN 3D SHARIF CAD Patient: HENRIETTA MAGANAChapincito Exam Date: 12/11/2022 : 1940 Gender:F Ordering : DR ALEX LLOYD D.O. Admission #: [id number] Family : Order #: [id number] CLICK HERE TO VIEW EXAM RADIOLOGY REPORT PROCEDURE: MAMMOGRAM SCREENING 3D BILATERAL CAD COMPARISON: MG MAMM SCREEN 3D SHARIF CAD, 12/05/2021. MG MAMM SCREEN SHARIF W CAD, 11/23/2020. MG MAMM SCREEN SHARIF W CAD, 11/17/2019. DIGITIZED_MAMMO, 05/04/2008. INDICATIONS: Screening mammography Calculator Name NCI Breast Cancer Risk Assessment Tool 5 Year Breast Cancer Risk 1.40% Lifetime Breast Cancer Risk 1.90% Personal Breast Cancer No Personal Ovarian Cancer No Treatments None Family Cancers None LOCATION: [facility] BREAST COMPOSITION: Almost entirely fatty. FINDINGS: DIAGNOSTIC CATEGORY 2--BENIGN FINDING: RIGHT BREAST: No significant suspicious finding. No significant change has occurred. LEFT BREAST: No significant suspicious finding. Stable, chronic, benign appearing lymph node within upper-outer quadrant, mid breast. Scattered benign-appearing calcifications are present. No significant change has occurred. RECOMMENDATIONS: ROUTINE MAMMOGRAM AND CLINICAL EVALUATION IN 12 MONTHS. PLEASE NOTE: A NORMAL MAMMOGRAM DOES NOT EXCLUDE THE POSSIBILITY OF BREAST CANCER. A CLINICALLY SUSPICIOUS PALPABLE LUMP SHOULD BE BIOPSIED. Dictated by: Merrill Kendall M.D. on 12/12/2022 at 13:52 Approved by: Merrill Kendall M.D. on 12/12/2022 at 13:54 Normal [facility] PROF CHEM 8 (BAS METB)on Anion gap [Moles/Vol] 11.9 mmol/L Normal [facility] Comment on above: Performed By: #### U RTPCR #### [facility] [address] [address] [address] Ashley Luna Calcium [Mass/Vol] 9.2 mg/dL Normal 8.5-10.1 [facility] Comment on above: Performed By: #### U RTPCR #### [facility] [address] [address] [address] Ashley Luna Chloride [Moles/Vol] 102 mmol/L Normal 98-107 [facility] Comment on above: Performed By: #### U RTPCR #### [facility] [address] [address] [address] Ashley Luna CO2 [Moles/Vol] 28.4 mmol/L Normal 21.0-32.0 [facility] Comment on above: Performed By: #### U RTPCR #### [facility] [address] [address] [address] Ashley Luna Creatinine [Mass/Vol] 1.68 mg/dL Critically high 0.55-1.02 [facility] Comment on above: Performed By: #### U RTPCR #### [facility] [address] [address] [address] Ashley Luna EGFR-AF ALBANIAN 35 mL/min/1.73m2 Critically low >=60 [facility] Comment on above: Performed By: #### U RTPCR #### [facility] [address] [address] [address] Ashley Luna EGFR-NON AF ALBANIAN 29 mL/min/1.73m2 Critically low >=60 [facility] Comment on above: Performed By: #### U RTPCR #### [facility] [address] [address] [address] Ashley Luna Glucose [Mass/Vol] 265 mg/dL Critically high 74-106 [facility] Comment on above: Performed By: #### U RTPCR #### [facility] [address] [address] [address] Ashley Luna Potassium [Moles/Vol] 4.3 mmol/L Normal 3.5-5.1 [facility] Comment on above: Performed By: #### U RTPCR #### [facility] [address] [address] [address] Ashley Luna Sodium [Moles/Vol] 138 mmol/L Normal 136-145 [facility] Comment on above: Performed By: #### U RTPCR #### [facility] [address] [address] [address] Ashley Luna Urea nitrogen [Mass/Vol] 38.0 mg/dL Critically high 7.0-18.0 [facility] Comment on above: Performed By: #### U RTPCR #### [facility] [address] [place] [address] Dr. Ashley Luna Urea nitrogen/Creatinine [Mass ratio] 22.6 mg/mg Normal [facility] Comment on above: Performed By: #### U RTPCR #### [facility] [address] [place] [address] Dr. Ashley Luna VITAMIN D 25 OHon 12-11-2022 VIT D 25-OH 36.2 ng/mL Normal [facility] Comment on above: Performed By: #### U RTPCR #### [facility] [address] [place] [address] Dr. Ashley Luna VIT D RANGES SEE BELOW Normal [facility] Comment on above: Result Comment: <20 ng/mL Vit D deficient 20 - <30 ng/mL Vit D insufficient 30 - 100 ng/mL Vit D sufficient >100 ng/mL Potential Toxicity Performed By: #### U RTPCR #### [facility] [address] [place] [address] Dr. Ashley Luna PTH INTACTon 11-19-2022 PTH, Intact 20 pg/mL Normal 15-65 [facility] Comment on above: Performed By: #### P THINT #### [facility] [address] [place] [address] Dr. Ashley Luna HEMOGRAM AND PLATELon 2022 Hematocrit (Bld) [Volume fraction] 32.9 % Critically low 36.0-48.0 [facility] Comment on above: Performed By: #### V ITAD #### [facility] [address] [place] [address] Dr. Ashley Luna Hemoglobin (Bld) [Mass/Vol] 11.1 g/dL Critically low 12.0-16.0 [facility] Comment on above: Performed By: #### V ITAD #### [facility] [address] [place] [address] Dr. Ashley Luna MCH (RBC) [Entitic mass] 33.4 pg Normal 26.7-34.0 [facility] Comment on above: Performed By: #### V ITAD #### [facility] [address] [address] [address] Ashley Luna MCHC (RBC) [Mass/Vol] 33.7 g/dL Normal 29.9-35.2 [facility] Comment on above: Performed By: #### V ITAD #### [facility] [address] [address] [address] Ashley Luna MCV (RBC) [Entitic vol] 99.1 fL Critically high 81.0-99.0 [facility] Comment on above: Performed By: #### V ITAD #### [facility] [address] [address] [address] Ashley Luna PLT 195 103/ul Normal 150-450 [facility] Comment on above: Performed By: #### V ITAD #### [facility] [address] [place] [address] Dr. Ashley Luna RBC 3.32 106/ul Critically low 4.20-5.40 [facility] Comment on above: Performed By: #### V ITAD #### [facility] [address] [place] [address] Dr. Ashley Luna WBC 7.6 103/ul Normal 4.0-11.0 [facility] Comment on above: Performed By: #### V ITAD #### [facility] [address] [place] [address] Dr. Ashley Luna MAGNESIUMon 11-18-2022 Magnesium [Mass/Vol] 1.6 mg/dL Critically low 1.8-2.4 [facility] Comment on above: Performed By: #### U GABRIELE, RENAL, MG #### [facility] [address] [address] [address] Ashley Luna RENAL FUNCTION PANELon 11-18 Albumin [Mass/Vol] 3.3 g/dL Critically low 3.4-5.0 [facility] Comment on above: Performed By: #### U GABRIELE, RENAL, MG #### [facility] [address] [address] [address] Ashley Luna Calcium [Mass/Vol] 9.9 mg/dL Normal 8.5-10.1 [facility] Comment on above: Performed By: #### U GABRIELE, RENAL, MG #### [facility] [address] [address] [address] Ashley Luna Chloride [Moles/Vol] 100 mmol/L Normal 98-107 [facility] Comment on above: Performed By: #### U GABRIELE, RENAL, MG #### [facility] [address] [place] [address] Dr. Ashley Luna CO2 [Moles/Vol] 28.4 mmol/L Normal 21.0-32.0 [facility] Comment on above: Performed By: #### U GABRIELE, RENAL, MG #### [facility] [address] [place] [address] Dr. Ashley Luna Creatinine [Mass/Vol] 1.56 mg/dL Critically high 0.55-1.02 [facility] Comment on above: Performed By: #### U GABRIELE, RENAL, MG #### [facility] [address] [place] [address] Dr. Ashley Luna EGFR-AF ALBANIAN 39 mL/min/1.73m2 Critically low >=60 [facility] Comment on above: Performed By: #### U GABRIELE, RENAL, MG #### [facility] [address] [place] [address] Dr. Ashley Luna EGFR-NON AF ALBANIAN 32 mL/min/1.73m2 Critically low >=60 [facility] Comment on above: Performed By: #### U GABRIELE, RENAL, MG #### [facility] [address] [place] [address] Dr. Ashley Luna Glucose [Mass/Vol] 197 mg/dL Critically high 74-106 [facility] Comment on above: Performed By: #### U GABRIELE, RENAL, MG #### [facility] [address] [place] [address] Dr. Ashley Luna Phosphate [Mass/Vol] 3.5 mg/dL Normal 2.6-4.7 [facility] Comment on above: Performed By: #### U GABRIELE, RENAL, MG #### [facility] [address] [address] [address] Ashley Luna Potassium [Moles/Vol] 4.3 mmol/L Normal 3.5-5.1 [facility] Comment on above: Performed By: #### U GABRIELE, RENAL, MG #### [facility] [address] [place] [address] Dr. Ashley Luna Sodium [Moles/Vol] 136 mmol/L Normal 136-145 [facility] Comment on above: Performed By: #### U GABRIELE, RENAL, MG #### [facility] [address] [place] [address] Dr. Ashley Luna Urea nitrogen [Mass/Vol] 33.0 mg/dL Critically high 7.0-18.0 [facility] Comment on above: Performed By: #### U GABRIELE, RENAL, MG #### [facility] [address] [place] [address] Dr. Ashley Luna UA RANDOM W/MICROSCOPICon BACTERIA SMALL Abnormal NONE SEEN [facility] Comment on above: Performed By: #### U RTPCR #### [facility] [address] [place] [address] Dr. Ashley Luna Bilirubin Ql (U) Negative Normal NEGATIVE [facility] Comment on above: Performed By: #### U RTPCR #### [facility] [address] [place] [address] Dr. Ashley Luna CAST NONE SEEN Normal NONE SEEN [facility] Comment on above: Performed By: #### U RTPCR #### [facility] [address] [place] [address] Dr. Ashley Luna Clarity (U) CLEAR Normal CLEAR [facility] Comment on above: Performed By: #### U RTPCR #### [facility] [address] [place] [address] Dr. Ashley Luna Color (U) LT. YELLOW Normal YELLOW [facility] Comment on above: Performed By: #### U RTPCR #### [facility] [address] [place] [address] Dr. Ashley Luna Crystals LM Nom (Urine sed) NONE SEEN Normal NONE SEEN [facility] Comment on above: Performed By: #### U RTPCR #### [facility] [address] [address] [address] Ashley Luna Epithelial cells LM Ql (Urine sed) NONE SEEN Normal NONE SEEN /RARE [facility] Comment on above: Performed By: #### U RTPCR #### [facility] [address] [place] [address] Dr. Ashley Luna Glucose Ql (U) Negative Normal NEGATIVE [facility] Comment on above: Performed By: #### U RTPCR #### [facility] [address] [place] [address] Dr. Ashley Luna Hemoglobin Ql (U) TRACE-INTACT Abnormal NEGATIVE [facility] Comment on above: Performed By: #### U RTPCR #### [facility] [address] [place] [address] Dr. Ashley Luna Ketones Ql (U) Negative Normal NEGATIVE [facility] Comment on above: Performed By: #### U RTPCR #### [facility] [address] [place] [address] Dr. Ashley Luna LEUKOCYTES LARGE Abnormal NEGATIVE [facility] Comment on above: Performed By: #### U RTPCR #### [facility] [address] [place] [address] Dr. Ashley Luna MUCOUS NONE SEEN Normal NONE SEEN [facility] Comment on above: Performed By: #### U RTPCR #### [facility] [address] [place] [address] Dr. Ashley Luna Nitrite Ql (U) Negative Normal NEGATIVE [facility] Comment on above: Performed By: #### U RTPCR #### [facility] [address] [place] [address] Dr. Ashley Luna pH (U) 7.0 [pH] Normal 5-9 [facility] Comment on above: Performed By: #### U RTPCR #### [facility] [address] [place] [address] Dr. Ashley Luna RBC 0-2 Normal 0-2 [facility] Comment on above: Performed By: #### U RTPCR #### [facility] [address] [address] [address] Ashley Luna SPEC GRAVITY 1.010 Normal 1.005-<=1.025 [facility] Comment on above: Performed By: #### U RTPCR #### [facility] [address] [place] [address] Dr. Ashley Luna UA PROTEIN Negative Normal NEGATIVE/ TRACE [facility] Comment on above: Performed By: #### U RTPCR #### [facility] [address] [address] [address] Ashley Luna Urobilinogen Qn (U) 0.2 {Jaquan'U}/dL Normal 0.2 - 1. 0 [facility] Comment on above: Performed By: #### U RTPCR #### [facility] [address] [place] [address] Dr. Ashley Luna WBC 5-10 Abnormal NONE SEEN [facility] Comment on above: Performed By: #### U RTPCR #### [facility] [address] [address] [address] Ashley Luna URIC ACID SERUMon 11-18-2022 Urate [Mass/Vol] 6.9 mg/dL Critically high 2.6-6.0 [facility] Comment on above: Performed By: #### U GABRIELE, RENAL, MG #### [facility] [address] [place] [address] Dr. Ashley Luna URINE T PROTEIN CREAT RATIOo n 11-18-2022 Protein (U) [Mass/Vol] 25.6 mg/dL Critically high <=12.0 [facility] Comment on above: Performed By: #### U RTPCR #### [facility] [address] [place] [address] Dr. Ashley Luna UR PROT CREAT RAT 0.[address] [facility] Comment on above: Performed By: #### U RTPCR #### [facility] [address] [place] [address] Dr. Ashley Luna URINE CREAT 48.36 mg/dL Normal 20.00-300.00 [facility] Comment on above: Performed By: #### U RTPCR #### [facility] [address] [place] [address] Dr. Ashley Luna VITAMIN D 25 OHon 11-18-2022 VIT D 25-OH 35.7 ng/mL Normal [facility] Comment on above: Performed By: #### V ITAD #### [facility] [address] [place] [address] Dr. Ashley Luna VIT D RANGES SEE BELOW Normal [facility] Comment on above: Result Comment: <20 ng/mL Vit D deficient 20 - <30 ng/mL Vit D insufficient 30 - 100 ng/mL Vit D sufficient >100 ng/mL Potential Toxicity Performed By: #### V ITAD #### [facility] [address] [place] [address] Dr. Ashley Luna CBC W Auto Differential pane l (Bld)on 11-11-2022 Basophils (Bld) [#/Vol] 0.04 10*3/uL Normal <0.11 [facility] Comment on above: Order Comment: Speci men Type: BLOOD SPECIMENOrdering Facility: [facility] Address: [address] [address] Performed By: #### 5 7021-8 ####[facility] [id number] [place] [address] Basophils/100 WBC (Bld) 0.6 % Normal [facility] Comment on above: Order Comment: Speci men Type: BLOOD SPECIMENOrdering Facility: [facility] Address: [address] [address] Performed By: #### 5 7021-8 ####[facility] [id number] [place] [address] Differential cell count method Nom (Bld) Auto Normal [facility] Comment on above: Order Comment: Speci men Type: BLOOD SPECIMENOrdering Facility: [facility] Address: [address] [address] Performed By: #### 5 7021-8 ####[facility] [id number] [place] [address] Eosinophils (Bld) [#/Vol] 0.22 10*3/uL Normal <0.46 [facility] Comment on above: Order Comment: Speci men Type: BLOOD SPECIMENOrdering Facility: [facility] Address: [address] [place] [address] Performed By: #### 5 7021-8 ####[facility] [id number] [place] [address] Eosinophils/100 WBC (Bld) 3.5 % Normal [facility] Comment on above: Order Comment: Speci men Type: BLOOD SPECIMENOrdering Facility: [facility] Address: [address] [place] [address] Performed By: #### 5 7021-8 ####[facility] [id number] [place] [address] Erythrocyte distribution width (RBC) [Ratio] 12.8 % Normal 11.5-15.0 [facility] Comment on above: Order Comment: Speci men Type: BLOOD SPECIMENOrdering Facility: [facility] Address: [address] [place] [address] Performed By: #### 5 7021-8 ####[facility] [id number] [place] [address] Hematocrit (Bld) [Volume fraction] 36.0 % Normal 36.0-46.0 [facility] Comment on above: Order Comment: Speci men Type: BLOOD SPECIMENOrdering Facility: [facility] Address: [address] [place] [address] Performed By: #### 5 7021-8 ####[facility] [id number] [place] [address] Hemoglobin (Bld) [Mass/Vol] 11.7 g/dL Normal 11.5-15.5 [facility] Comment on above: Order Comment: Speci men Type: BLOOD SPECIMENOrdering Facility: [facility] Address: [address] [address] Performed By: #### 5 7021-8 ####[facility] [id number] [place] [address] Immature granulocytes (Bld) [#/Vol] 10*3/uL Normal <0.10 [facility] Comment on above: Order Comment: Speci men Type: BLOOD SPECIMENOrdering Facility: [facility] Address: [address] [address] Performed By: #### 5 7021-8 ####[facility] [id number] [place] [address] Immature granulocytes/100 WBC (Bld) 0.3 % Normal [facility] Comment on above: Order Comment: Speci men Type: BLOOD SPECIMENOrdering Facility: [facility] Address: [address] [place] [address] Performed By: #### 5 7021-8 ####[facility] [id number] [place] [address] Lymphocytes (Bld) [#/Vol] 1.45 10*3/uL Normal 1.00-4.00 [facility] Comment on above: Order Comment: Speci men Type: BLOOD SPECIMENOrdering Facility: [facility] Address: [address] [place] [address] Performed By: #### 5 7021-8 ####[facility] [id number] [place] [address] Lymphocytes/100 WBC (Bld) 23.2 % Normal [facility] Comment on above: Order Comment: Speci men Type: BLOOD SPECIMENOrdering Facility: [facility] Address: [address] [place] [address] Performed By: #### 5 7021-8 ####[facility] [id number] [place] [address] MCH (RBC) [Entitic mass] 33.5 pg Normal 26.0-34.0 [facility] Comment on above: Order Comment: Speci men Type: BLOOD SPECIMENOrdering Facility: [facility] Address: [address] [address] Performed By: #### 5 7021-8 ####[facility] [id number] [place] [address] MCHC (RBC) [Mass/Vol] 32.5 g/dL Normal 30.5-36.0 [facility] Comment on above: Order Comment: Speci men Type: BLOOD SPECIMENOrdering Facility: [facility] Address: [address] [place] [address] Performed By: #### 5 7021-8 ####[facility] LABIA [id number] [place] [address] MCV (RBC) [Entitic vol] 103.2 fL High 80.0-100.0 [facility] Comment on above: Order Comment: Speci men Type: BLOOD SPECIMENOrdering Facility: [facility] Address: [address] [place] [address] Performed By: #### 5 7021-8 ####[facility] [id number] [place] [address] Monocytes (Bld) [#/Vol] 0.42 10*3/uL Normal <0.87 [facility] Comment on above: Order Comment: Speci men Type: BLOOD SPECIMENOrdering Facility: [facility] Address: [address] [address] Performed By: #### 5 7021-8 ####[facility] LABIA [id number] [place] [address] Monocytes/100 WBC (Bld) 6.7 % Normal [facility] Comment on above: Order Comment: Speci men Type: BLOOD SPECIMENOrdering Facility: [facility] Address: [address] [place] [address] Performed By: #### 5 7021-8 ####[facility] [id number] [place] [address] Neutrophils (Bld) [#/Vol] 4.09 10*3/uL Normal 1.45-7.50 [facility] Comment on above: Order Comment: Speci men Type: BLOOD SPECIMENOrdering Facility: [facility] Address: [address] [place] [address] Performed By: #### 5 7021-8 ####[facility] [id number] [place] [address] Neutrophils/100 WBC (Bld) 65.7 % Normal [facility] Comment on above: Order Comment: Speci men Type: BLOOD SPECIMENOrdering Facility: [facility] Address: [address] [place] [address] Performed By: #### 5 7021-8 ####[facility] [id number] [place] [address] Nucleated RBC (Bld) [#/Vol] 10*3/uL Normal <0.01 [facility] Comment on above: Order Comment: Speci men Type: BLOOD SPECIMENOrdering Facility: [facility] Address: [address] [place] [address] Performed By: #### 5 7021-8 ####[facility] [id number] [place] [address] Nucleated RBC/100 WBC (Bld) [Ratio] 0.0 /100 WBC Normal [facility] Comment on above: Order Comment: Speci men Type: BLOOD SPECIMENOrdering Facility: [facility] Address: [address] [place] [address] Performed By: #### 5 7021-8 ####[facility] [id number] [place] [address] Platelet mean volume (Bld) [Entitic vol] 9.3 fL Normal 9.0-12.7 [facility] Comment on above: Order Comment: Speci men Type: BLOOD SPECIMENOrdering Facility: [facility] Address: [address] [place] [address] Performed By: #### 5 7021-8 ####[facility] LABIA [id number] [place] [address] Platelets (Bld) [#/Vol] 211 10*3/uL Normal 150-400 [facility] Comment on above: Order Comment: Speci men Type: BLOOD SPECIMENOrdering Facility: [facility] Address: [address] [place] [address] Performed By: #### 5 7021-8 ####[facility] [id number] [place] [address] RBC (Bld) [#/Vol] 3.49 10*6/uL Low 3.90-5.20 [facility] Comment on above: Order Comment: Speci men Type: BLOOD SPECIMENOrdering Facility: [facility] Address: [address] [place] [address] Performed By: #### 5 7021-8 ####[facility] [id number] [place] [address] WBC (Bld) [#/Vol] 6.24 10*3/uL Normal 3.70-11.00 [facility] Comment on above: Order Comment: Speci men Type: BLOOD SPECIMENOrdering Facility: [facility] Address: [address] [place] [address] Performed By: #### 5 7021-8 ####[facility] [id number] [place] [address] CNOVSPon 11-11-2022 CNOVS Visit (SP) Office ([place]) HENRIETTA MAGANA ([id number]) 1940 F Date Time Provider Department 11/11/22 2:30 PM ATIF YOUSIF During your visit today, we recorded the following information about you: Temperature Pulse Respiration Blood pressure 97.4 degrees 84/minute 16/minute 124/77 Weight Height 69.9 kg 1.524 m Atif Yousif MD 11/13/2022 6:11 AM Signed PATIENT NAME: Henrietta Magana DATE: 11/11/2022 PRIMARY CARE PHYSICIAN: Dr. Alex Lloyd OTHER PHYSICIANS: Dr. Holden (pain management), Dr. Flores, Dr. Amin Portions of this encounter note have been copied from the note from 09/16/2022 and has been updated where appropriate, and reflect my current medical decision making from today. CC: This is an 82 year old female with chronic anemia, seen for scheduled follow-up. INTERIM HISTORY: The patient last received Aranesp on 09/16/2022. Since then she has had no significant medical changes. Chronic mild fatigue is unchanged. No new symptoms today. MEDICATIONS: HYDROcodone-Acetamino phen (NORCO) 7.5-325 mg per tablet TAKE 1 TABLET BY MOUTH 3 TIMES A DAY NEEDED FOR PAIN calcium carbonate/vitamin D3 (CALCIUM 600 + D ORAL) Take by mouth. famotidine (PEPCID) 20 mg tablet Take by mouth twice daily. amLODIPine (NORVASC) 5 mg tablet fenofibrate (LOFIBRA) 134 mg capsule Take 134 mg by mouth daily at bedtime. bvwlh-3t-xnn-epa-fish oil 300-1,000 mg cpDR Take by mouth. carvedilol (COREG) 6.25 mg tablet Take 1 tablet by mouth twice daily. gabapentin (NEURONTIN) 100 mg capsule Take 300 mg by mouth three times daily. ALLERGIES: Sulfa (Sulfonamide Antibiotics) and Venofer [Iron Sucrose] PAST MEDICAL HISTORY: PAST MEDICAL HISTORY Diagnosis Date Anemia Arthritis Chronic renal insufficiency Crohn's disease (HCC) Degenerative joint disease GERD (gastroesophageal reflux disease) Hyperlipidemia Hypertension Iron deficiency Osteoarthritis PAST SURGICAL HISTORY: PAST SURGICAL HISTORY Procedure Laterality Date BACK SURGERY HX 2004 Dr. Guillen CATARACT SURGERY, COMPLEX COLONOSCOPY EGD HYSTERECTOMY HX KNEE SURGERY HX 2009 TKR. Left REVIEW OF SYSTEMS: General: No weight loss, malaise or fevers. Increasing fatigue. HEENT: Negative for frequent or significant headaches. No changes in hearing or vision, no nose bleeds or other nasal problems. Respiratory: Negative for cough, wheezing or shortness of breath. Cardiovascular: Negative for chest pain, leg swelling or palpitations. GI: Negative for abdominal discomfort, blood in stools or black stools or change in bowel habits. : No history of dysuria, frequency or incontinence. Musculoskeletal: Positive for joint pain and swelling and muscle pain- chronic. Skin: Negative for lesions, rash, and itching. Hematology/Lymphology : Negative for prolonged bleeding, bruising easily or swollen nodes. Neuro: No history of headaches, syncope, paralysis, seizures or tremors. PHYSICAL EXAM: Vitals: BP 124/77 Pulse 84 Temp 36.3 ?C (97.4 ?F) (Temporal) Resp 16 Ht 152.4 cm (5') Wt 69.9 kg (154 lb) SpO2 94% BMI 30.08 kg/m? ECOG 1 Exam limited to gross visualization where appropriate due to COVID-19. Gen.: This is an age-appropriate patient in no acute distress. Head: Appears atraumatic with no visible lesions. Eyes: Pupils equally round and reactive to light, extraocular muscles are intact. Neck: Supple. Mouth: Masked. Respiratory: Appears to be respiring comfortably. Neurologic: Nonfocal to gross visualization. Alert and oriented ?3. Psychiatric: No evidence of inappropriate anxiety or depression. Skin: Visible areas of skin without rash, lesions, wounds or petechiae. LABORATORY DATA: Hemoglobin (g/dL) Date Value 11/11/2022 11.7 12/13/2021 11.6 Hematocrit (%) Date Value 11/11/2022 36.0 12/13/2021 37.0 WBC (k/uL) Date Value 11/11/2022 6.24 12/13/2021 4.90 Platelet Count (k/uL) Date Value 11/11/2022 211 12/13/2021 213 ASSESSMENT/PLAN: 1. 285.9 Anemia (primary diagnosis) Severe anemia initially discovered February 2007 (hemoglobin 6.7). Bone marrow biopsy April 2007 nondiagnostic. Etiology multifactorial - in part due to iron deficiency from GI bleeding, in part due to CRI. Shortly after initial presentation the patient received multiple blood transfusions, iron infusions, and EPO injections with resolution of her anemia. The patient developed recurrent anemia in January 2019 due to an upper GI bleed from peptic ulcer disease. With appropriate management her anemia initially returned to baseline. However, since 2020 her anemia has worsened as a result of chronic renal insufficiency and the patient became symptomatic with severe fatigue. For the treatment of renal failure induced anemia the patient was started on Aranesp 11/29/2021, with plans to give as needed to maintain (more content not included)... Normal [facility] Comprehensive metabolic 2000 panelon 11-11-2022 Albumin [Mass/Vol] 4.7 g/dL Normal 3.9-4.9 [facility] Comment on above: Order Comment: Speci men Type: BLOOD SPECIMENOrdering Facility: [facility] Address: [address] [place] [address] Performed By: #### 2 4323-8 ####[facility] [id number] [place] [address] ALP [Catalytic activity/Vol] 33 U/L Low 34-123 [facility] Comment on above: Order Comment: Speci men Type: BLOOD SPECIMENOrdering Facility: [facility] Address: [address] [place] [address] Performed By: #### 2 4323-8 ####[facility] [id number] [place] [address] ALT [Catalytic activity/Vol] 14 U/L Normal 7-38 [facility] Comment on above: Order Comment: Speci men Type: BLOOD SPECIMENOrdering Facility: [facility] Address: [address] [place] [address] Performed By: #### 2 4323-8 ####[facility] [id number] [place] [address] Anion gap [Moles/Vol] 12 mmol/L Normal 9-18 [facility] Comment on above: Order Comment: Speci men Type: BLOOD SPECIMENOrdering Facility: [facility] Address: [address] [place] [address] Performed By: #### 2 4323-8 ####[facility] [id number] [place] [address] AST [Catalytic activity/Vol] 19 U/L Normal 13-35 [facility] Comment on above: Order Comment: Speci men Type: BLOOD SPECIMENOrdering Facility: [facility] Address: [address] [place] [address] Performed By: #### 2 4323-8 ####[facility] [id number] [place] [address] Bilirubin [Mass/Vol] 0.2 mg/dL Normal 0.2-1.3 [facility] Comment on above: Order Comment: Speci men Type: BLOOD SPECIMENOrdering Facility: [facility] Address: [address] [place] [address] Performed By: #### 2 4323-8 ####[facility] [id number] [place] [address] Calcium [Mass/Vol] 9.9 mg/dL Normal 8.5-10.2 [facility] Comment on above: Order Comment: Speci men Type: BLOOD SPECIMENOrdering Facility: [facility] Address: [address] [place] [address] Performed By: #### 2 4323-8 ####[facility] [id number] [place] [address] Chloride [Moles/Vol] 99 mmol/L Normal 97-105 [facility] Comment on above: Order Comment: Speci men Type: BLOOD SPECIMENOrdering Facility: [facility] Address: [address] [place] [address] Performed By: #### 2 4323-8 ####[facility] [id number] [place] [address] CO2 [Moles/Vol] 26 mmol/L Normal 22-30 [facility] Comment on above: Order Comment: Speci men Type: BLOOD SPECIMENOrdering Facility: [facility] Address: [address] [place] [address] Performed By: #### 2 4323-8 ####[facility] [id number] [place] [address] Creatinine [Mass/Vol] 1.61 mg/dL High 0.58-0.96 [facility] Comment on above: Order Comment: Speci men Type: BLOOD SPECIMENOrdering Facility: [facility] Address: [address] [place] [address] Performed By: #### 2 4323-8 ####[facility]CL[facility] [id number] [place] [address] ESTIMATED GLOMERULAR FILTRATION RATE 32 mL/min/1.73m??? Low >=60 [facility] Comment on above: Order Comment: Speci men Type: BLOOD SPECIMENOrdering Facility: [facility] Address: [address] [place] [address] Result Comment: Lady mated Glomerular Filtration Rate (eGFR) is calculated using the 2020 CKD-EPI creatinine equation. This equation utilizes serum creatinine, sex, and age as parameters. The creatinine assay has traceable calibration to isotope dilution-mass spectrometry. Refer to KDIGO guidelines for clinical interpretation. In patients with unstable renal function, e.g. those with acute kidney injury, the eGFR may not accurately reflect actual GFR. Performed By: #### 2 4323-8 ####[facility] [id number] [place] [address] Glucose [Mass/Vol] 285 mg/dL High 74-99 [facility] Comment on above: Order Comment: Speci men Type: BLOOD SPECIMENOrdering Facility: [facility] Address: [address] [place] [address] Result Comment: The [place] [employer] (ADA) provides guidance for cutoff values for fasting glucose and random glucose. The ADA defines fasting as no caloric intake for at least 8 hours. Fasting plasma glucose results between 100 to 125 mg/dL indicate increased risk for diabetes (prediabetes). Fasting plasma glucose results greater than or equal to 126 mg/dL meet the criteria for diagnosis of diabetes. In the absence of unequivocal hyperglycemia, results should be confirmed by repeat testing. In a patient with classic symptoms of hyperglycemia or hyperglycemic crisis, random plasma glucose results greater than or equal to 200 mg/dL meet the criteria for diagnosis of diabetes. Reference: Standards of Medical Care in Diabetes 2016, [place] [employer]. Diabetes Care. 2016.39(Suppl 1). Performed By: #### 2 4323-8 ####[facility] [id number] [place] [address] Potassium [Moles/Vol] 4.4 mmol/L Normal 3.7-5.1 [facility] Comment on above: Order Comment: Speci men Type: BLOOD SPECIMENOrdering Facility: [facility] Address: [address] [place] [address] Performed By: #### 2 4323-8 ####[facility] [id number] [place] [address] Protein [Mass/Vol] 7.3 g/dL Normal 6.3-8.0 [facility] Comment on above: Order Comment: Speci men Type: BLOOD SPECIMENOrdering Facility: [facility] Address: [address] [place] [address] Performed By: #### 2 4323-8 ####[facility] [id number] [place] [address] Sodium [Moles/Vol] 137 mmol/L Normal 136-144 [facility] Comment on above: Order Comment: Speci men Type: BLOOD SPECIMENOrdering Facility: [facility] Address: [address] [address] Performed By: #### 2 4323-8 ####[facility] [id number] [place] [address] Urea nitrogen [Mass/Vol] 36 mg/dL High 7-21 [facility] Comment on above: Order Comment: Speci men Type: BLOOD SPECIMENOrdering Facility: [facility] Address: [place] [address] Performed By: #### 2 4323-8 ####[facility] [id number] [place] [address] Coding Summary.on 10-15-2022 Coding Summary. [id number] G h0bWw+PGhlYWQ+BE4BTBZ kH93jbBKpaV1NK0sPAO4A JBZUYUGIOS3ZQA4fjRQ2D CnnC2YnggVq ZkgjtFSiCJ63QBo4VVI6i BstINfliQ6apFTxL5a7Gi HcTJ25fI77TLdePHBgHuY 3LjZpbjsgbWFy T6ilZhFinUWdXdt+PHRhY mxlIHdpZHRoPScxMDAlJy KzkHraHH6pAe5dEXGnWVW vbGxhcHNlOiBj w6jfUNXnAKdgPH8oiVkvS 6YtdHY7IRJan2v8Zx35gT I+VNKmTAZ9jTwcTXgna38 6KjCsa7lbALK0 uJFoYEwfBVR7A56ml8Q0J OPxQRCnIEK0iSG4aA9oqA gtamohV6TfnMKxUgM4XKI 6gVTnkH1ylIrj nbuotX4wJmt+R13KBT5KD RKDMW2LIir5S6NbGppqsJ I+QS71XUElWX41qARxzAZ kw2mbzBw6DbQh LZGbHTP5aPmhJOtey6WfB QCsC52mkCPue0Y3AGBpgV sdzCOjLiQgyGK7lY9vAUv qtwbuz4ikewsi Geglj9chpz27hI29U14eW NnyCXZpSTB1BGPbIIAckM zwtm5oxW4zUb1+VOjqv3c be7okpVu7SdKc NYJwfgOurQjrSNT7z9GmL a26L4MjwLyue0MlHvu7eg 48hSOfi8V6aDS9OMxjATM vlF6eQVwbAmF3 UZVkMlSdfG13bUKnNGuiN w9kjXzwdIcjOG8iUWIkew ycUHFrqF7pUBKogQJojBy lTO1gXBYfqxpw h008SsHlQUN2LTCgvQTkX 2LdtM5eDaWsBGDaWFTkD3 CphKEeCUajI082YXpgEeC 5HXKsrvLdR3Iu VSAytTgqMkD1a7Y7Qe2Nr 2SjpnrsPNV0WPcaFSGoOq S7YcKaVpB4W8OhQtw6NMA urKhoKB0oG3Uj PXHgdvjhduqvqZI4EEXfI XTceY13cLCkUGeaDl4je5 U2q594AXBvWPYazI74Te9 udDogMTBwdCBU eU3wlrwgf4jtzcbkCiEpM YKcZKj4AVv1WLApxPbzCc CaMXA7LcQ2JPH6pUKmqW8 loVgbejqokL3s Oyc+L67xyX8wMMP9YGJ4b trxFDRtvrYcTN42NB21U6 RyPjwvdGFibGU+PGRpdiB jaUzdJG6bAiTc q3jjz8QiDQsjK4JiCANmV NunQxd5PYQnWQB4lHB0kW 3qVBUoJWrjw5P5jTV8V1Z zkiAhkh8uw7em FILaTYfsM65tyMAgn9E1O QMxpMZ3GOFigDojVkVbbN 93Oyc+QWFsyTuls2DaKkj nt9xfx4tdnWl3 RtVcRVXxqvRyaRzhZVZ1j 9VrZl99D31mUDmyGJDlKM JxRNAfNMGusQytrg6ogT6 wIi8+PGNvbCB3 eSO4aY3cXAKgUdS1DQfoC 564BvJvuKHtShsaq0ylf0 ovtYq3SlJhYNNxhgMigYt xWWO6w5DwRy10 E18fBYnmQGSsKPRyLQBiU LRefRuein1vpD0vJf2+PC 7ro4hada94lI41xGC+PHR nOFS4aRjgMBnb MJFcoN9aGGuiRkS4ZYRfP zYrgJ81sGNmXNfwOk3uvE wrqWwzZJ6yGGVqxwtok36 3GwRen3tmAYXm qXVyCVcuCLQ5U68yz4D3F WBlNHOjOKU4eGL9vO5gbK lnbjogbGVmdDsgdmVydGl xPKduCXmmO304 IHRvcDsnPlBhdGllbnQgT jXiROi9X4OzTkf8RXJvtP jfQX9uwEAiJQluFh9ugSp seGpaPF5bZLMu wcxwd676HsTad6uoBSNqr JWpRZagWXE2D78pq4K5DV ZdNJSuAFL8sRQ7eQ3taMj nbjogbGVmdDsg bzOtdHlhTEqfYAdkD180W HRvcDsnPkJpcnRoIERhdG F3CM63YC48cYKtm3W4lDL 4W3NiIHSbgijk leqoxWA5DZKkMBAloC89B y6zkFayIb3bZFQlEMH0KS SyiJEtA1HniO0rPhQxBGM uQPJcT1RfzDCv ROvnO601TLhcGyY0PXBmd eQuQ6ZzVBUodRfrGgT7z9 X5Vw2LN0K4FC49NI48kFO cb5T9cMD5A3Dj UDQpijdsrflybCC6NWMwU DIlsG55Wn5zxGuqYa1uYY LwNNF3TQEazWAwY7HphL8 yOiAjMDAwMDAw H4ZeaXAaFMziR766CZvjR uK7JYTzrgVnK6SqKZVejP joDlF6j2X8Ot5WJWi5RL8 3II75jNDsk7V3 iVT5A5SmXEEwebqrasfly LE2DJMhPIYrkG78Id5yqH vqQr3xBAYaMZO0WKRdfCF nT3YraQ2rReAd XLLuPPIqL4NnqJSeLSntW 405SSixAnY4XOXgfmWsM6 AuKQFckZttKwQ0l3V4As6 GDKXqCA67TCU7 nEA3QK26ED57V6WdFwjca GFibGU+PHRhYmxlIHdpZH RoPScxMDAlJyBzdHlsZT0 kFt0cXLJdGVQy aGbvrWFqNrOjc7tsPMZlR TkvQG7hjNppS8TpjNG8DV Trm8z7Ze37T07bP9RlcGK +UNJchTL1iAO8 xA3qAqYsDfS2YXjqL822C pVnoKAzSglrb4mss0zfaP c1XwK1YJUdtiMuxLthPMB 4m9DmYl90P93g IHdpZHRoPSIxNSUiIHZhb Znvbn1xjT2vRu7+PGNvbC B1iRV9vQ4uVxZlNjO1VZf gF105KrGkoBMn Sokiy4qdq0blrRe4IgLiT XXlbdTyfDlpCFL6j2PnJv 32A5ZhtGcet2FzXeq0av0 9uQVzz8U2xEK5 T2XwQQMifqbrjINleXfcJ J1kLOTdroylQCCbrW6vTQ KoF6k3GfHyQkS9RHrpF3U tgrU8IWWxaKEj HRlyFTC6B74yu6C4XSTvA KNuEMT1uVM8yN2ciSdruh ogbGVmdDsgdmVydGljYWw wPUmqI888CBHx gNsbBDXrcU1dVXDikKKmf AlcJP5nUWWpzznkCsJYZK IVCGWTDM2SYBFRGJ58JB0 8iHNip1G2bGS4 C5MfZYJxakkpcmhobLG0O CTxUOLhxT39iGDhBDfsHe 6im4G2b079RFVsMXYtyQ4 1Zm5msZdbZTOx jMCNfO0atpyfv4klmwvgF cRvOCVhENv8JFp4DYTanX ymPcYqLNS7UsU4JDS8cBX fvV8wqKbtmwkf nV6bWmh+RVGzExXjKOd9M DwvdGQ+ENWzQAQ4rXfgNF pnZORmjM8fOIRiX8t6EuJ rQrW4YDheB1Wb AJCgbubgGx91sO6jGeOsU iT8ANheD6AlfdN0XXLxrX YoTKpxRBP9J19kq3V1ATT yHZYkFTG4xVU3 rA3shGpeazndzNWanOiic kVggKolCTvnOCypT351IU RvcDsnPjgyIFllYXJzPC9 1GN94rEHgn9T3 qQV5M9WeZYPflvsygaqui QC6SWTcPKFbjG18tBIaJZ stBm1ki9L3g300CPDiVMI zkJ27Dc2exBqp HBTvfWVFzG6qqhvpj2ouc lmhQyOeOBIfTFm5XCd9PA TifRepQzZwYPR9MmQ0PBZ 5vHEazY3kfMny rrnqyL9eSpl+RmVtYWxlP P16NO69kCZou0L3vAN4I3 WkWURjvegqddsvqNJ5VWO nZGQmbY27nDMe ERprEi2kg5G2w913MHIgC ABjiD40Yb9xtAmuTFIqrN PFgR2oxavmg3wmcfcoTeC vTPAoCFk5YFe5 QTGphFpnJqLrEGN0XlB6X DS1zZIprR9dbYdkxumajI 9wOyc+RVVdmmXEBT8kV0I bYL51CF07NX85 W9DzVqwluAJhgMM+PHRhY mxlIHdpZHRoPScxMDAlJy FopFfuQK1vGr7cUUXiFWF vbGxhcHNlOiBj f4qtGWFhUOaaMC5jkOorW 1YawPE4SXNbv0u7Nn62H9 9qA7ZxmTM+JNYuwMD8rDC 6pM5oIbWwKzF1 ZKzhK882GdAsxEVjOrayv 0sjh9bodEu8AdYiGEDnwo LypMktCJP5s9OmSi74U87 sIHdpZHRoPSIy TBFoSPFkiDrzie5ttD1kF i8+VJTsrND3nBQ7nW5yLi BwQjL6OAkwD003CyCujDY lXxfxX17jV8Rf dXA+KOMeApb3YACfiXimC Z1hsIUmJTaxOg2jYDC8Xp BdVkHfDHeaF6LfKKAbmuq awrvlvIN9LGCp NGCkdQ15Ql7itDpiXk4fO ODaPLL4EQFcjXUhV0FjqD 4qYnAxVGInNVVeW1GaxJV mLVuwT929AWer LjI9BPAranOiQ8IkOLPvn KfuTtU6i0G2Ei2TvSuxgM YqGC2oIsVgYLa2U3JuEpl 7OOJyzQdaCM9d fCWbRPsqLc2mzApsuAneX Z2uLUDuyzjtt128GdTqt5 lwZJHuzRZpVCyiJQG3M58 hw1F6WQIyPXQg ERK9tHX9hB6bvZmbeeyqa GVmdDsgdmVydGljYWwtYW iuA260VCAthQgvQoENUfh 8J0HoVov5EABz hOduUX4iuTSeNAigBo0my BtqtNluEE8zPGLnuyzdk3 08RuTqh9cyUAFmuKQfCQu gQDW9R96in2W2 OZHyTLZlSPB8iYQ8qE0og GlnbjogbGVmdDsgdmVydG adGZhjPWinD295QXVidCt wEr0LKvb7L7Kp Bkr2MGMuiYlwYU4nzOSqP LmfRm5mcOpezZjiHY7zJC Nvxolih351IpPhw2xlKBP wcHQgVGltZXM7 U10oe1H0LSCoNXQbMMU7n XP8pW3fpMerrewrgBVxoK vzgoVaaXvpKZwnSRcmB37 6IHRvcDsnPlBh eWVyOjwvdGQ+QS56gm76H 7AaLkedNmh9PLZiZHT1zY M5uN2kBOHfREean4U2xMJ 5A3YsjiLgcn1m b2xs (more content not included)... Normal [facility] Consent for Treatmenton 09-20 Consent for Treatment [id number] 120 [id number]# 1.00CD:127 Normal [facility] Office/Clinic Note-Physician on 10-10-2022 Office/Clinic Note-Physician [id number]. [id number]# 1.00CD:127 Normal [facility] Patient Correspondenceon Patient Correspondence [id number]. [id number]# 1.00CD:127 Normal [facility] Patient History Officeon Patient History Office [id number]. [id number]# 1.00CD:127 Normal [facility] Basic metabolic 2000 panelon 09-16-2022 Anion gap [Moles/Vol] 8 mmol/L Low 9-18 [facility] Comment on above: Order Comment: Speci men Type: BLOOD SPECIMENOrdering Facility: [facility] Address: [address] [place] [id number] Performed By: #### 2 [id number] ####[facility] LABCL[facility] [id number] [place], [place] [address] Calcium [Mass/Vol] 10.2 mg/dL Normal 8.5-10.2 [facility] Comment on above: Order Comment: Speci men Type: BLOOD SPECIMENOrdering Facility: [facility] Address: [address] [address] Performed By: #### 2 4321-2 ####[facility] [id number] [place] [address] Chloride [Moles/Vol] 101 mmol/L Normal 97-105 [facility] Comment on above: Order Comment: Speci men Type: BLOOD SPECIMENOrdering Facility: [facility] Address: [address] [place] [address] Performed By: #### 2 4321-2 ####[facility] [id number] [place] [address] CO2 [Moles/Vol] 29 mmol/L Normal 22-30 [facility] Comment on above: Order Comment: Speci men Type: BLOOD SPECIMENOrdering Facility: [facility] Address: [address] [place] [address] Performed By: #### 2 4321-2 ####[facility] [id number] [place] [address] Creatinine [Mass/Vol] 1.67 mg/dL High 0.58-0.96 [facility] Comment on above: Order Comment: Speci men Type: BLOOD SPECIMENOrdering Facility: [facility] Address: [address] [place] [address] Performed By: #### 2 4321-2 ####[facility] [id number] [place] [address] ESTIMATED GLOMERULAR FILTRATION RATE 30 mL/min/1.73m??? Low >=60 [facility] Comment on above: Order Comment: Speci men Type: BLOOD SPECIMENOrdering Facility: [facility] Address: [address] [place] [address] Result Comment: Lady mated Glomerular Filtration Rate (eGFR) is calculated using the 2020 CKD-EPI creatinine equation. This equation utilizes serum creatinine, sex, and age as parameters. The creatinine assay has traceable calibration to isotope dilution-mass spectrometry. Refer to KDIGO guidelines for clinical interpretation. In patients with unstable renal function, e.g. those with acute kidney injury, the eGFR may not accurately reflect actual GFR. Performed By: #### 2 4321-2 ####[facility] [id number] [place] [address] Glucose [Mass/Vol] 219 mg/dL High 74-99 [facility] Comment on above: Order Comment: Specangelita hernandez Type: BLOOD SPECIMENOrdering Facility: [facility] Address: [address] [place], [place] [id number] Result Comment: The [place] Diabetes [employer] (ADA) provides guidance for cutoff values for fasting glucose and random glucose. The ADA defines fasting as no caloric intake for at least 8 hours. Fasting plasma glucose results between 100 to 125 mg/dL indicate increased risk for diabetes (prediabetes). Fasting plasma glucose results greater than or equal to 126 mg/dL meet the criteria for diagnosis of diabetes. In the absence of unequivocal hyperglycemia, results should be confirmed by repeat testing. In a patient with classic symptoms of hyperglycemia or hyperglycemic crisis, random plasma glucose results greater than or equal to 200 mg/dL meet the criteria for diagnosis of diabetes. Reference: Standards of Medical Care in Diabetes 2016, [place] [employer]. Diabetes Care. 2016.39(Suppl 1). Performed By: #### 2 4321-2 ####[facility] [id number] [place] [address] Potassium [Moles/Vol] 4.4 mmol/L Normal 3.7-5.1 [facility] Comment on above: Order Comment: Margo hernandez Type: BLOOD SPECIMENOrdering Facility: [facility] Address: [address] [place] [id number] Performed By: #### 2 4321-2 ####[facility] [id number] [place] [address] Sodium [Moles/Vol] 138 mmol/L Normal 136-144 [facility] Comment on above: Order Comment: Speci men Type: BLOOD SPECIMENOrdering Facility: [facility] Address: [address] [address] Performed By: #### 2 4321-2 ####[facility] [id number] [place] [address] Urea nitrogen [Mass/Vol] 34 mg/dL High 7-21 [facility] Comment on above: Order Comment: Speci men Type: BLOOD SPECIMENOrdering Facility: [facility] Address: [address] [address] Performed By: #### 2 4321-2 ####[facility] [id number] [place] [address] CBC W Auto Differential pane l (Bld)on 09-16-2022 Basophils (Bld) [#/Vol] 0.05 10*3/uL Normal <0.11 [facility] Comment on above: Order Comment: Speci men Type: BLOOD SPECIMENOrdering Facility: [facility] Address: [address] [address] Performed By: #### 5 7021-8 ####[facility]IA [id number] [place] [address] Basophils/100 WBC (Bld) 1.0 % Normal [facility] Comment on above: Order Comment: Speci men Type: BLOOD SPECIMENOrdering Facility: [facility] Address: [address] [address] Performed By: #### 5 7021-8 ####[facility]IA [id number] [place] [address] Differential cell count method Nom (Bld) Auto Normal [facility] Comment on above: Order Comment: Speci men Type: BLOOD SPECIMENOrdering Facility: [facility] Address: [address] [address] Performed By: #### 5 7021-8 ####[facility] [id number] [place] [address] Eosinophils (Bld) [#/Vol] 0.17 10*3/uL Normal <0.46 [facility] Comment on above: Order Comment: Speci men Type: BLOOD SPECIMENOrdering Facility: [facility] Address: [address] [place] [address] Performed By: #### 5 7021-8 ####[facility] [id number] [place] [address] Eosinophils/100 WBC (Bld) 3.2 % Normal [facility] Comment on above: Order Comment: Speci men Type: BLOOD SPECIMENOrdering Facility: [facility] Address: [address] [place] [address] Performed By: #### 5 7021-8 ####[facility] [id number] [place] [address] Erythrocyte distribution width (RBC) [Ratio] 12.5 % Normal 11.5-15.0 [facility] Comment on above: Order Comment: Speci men Type: BLOOD SPECIMENOrdering Facility: [facility] Address: [address] [place] [address] Performed By: #### 5 7021-8 ####[facility] [id number] [place] [address] Hematocrit (Bld) [Volume fraction] 33.2 % Low 36.0-46.0 [facility] Comment on above: Order Comment: Speci men Type: BLOOD SPECIMENOrdering Facility: [facility] Address: [address] [place] [address] Performed By: #### 5 7021-8 ####[facility] [id number] [place] [address] Hemoglobin (Bld) [Mass/Vol] 10.8 g/dL Low 11.5-15.5 [facility] Comment on above: Order Comment: Speci men Type: BLOOD SPECIMENOrdering Facility: [facility] Address: [address] [address] Performed By: #### 5 7021-8 ####[facility] [id number] [place] [address] Immature granulocytes (Bld) [#/Vol] 10*3/uL Normal <0.10 [facility] Comment on above: Order Comment: Speci men Type: BLOOD SPECIMENOrdering Facility: [facility] Address: [address] [address] Performed By: #### 5 7021-8 ####[facility] [id number] [place] [address] Immature granulocytes/100 WBC (Bld) 0.2 % Normal [facility] Comment on above: Order Comment: Speci men Type: BLOOD SPECIMENOrdering Facility: [facility] Address: [address] [place] [address] Performed By: #### 5 7021-8 ####[facility] [id number] [place] [address] Lymphocytes (Bld) [#/Vol] 1.36 10*3/uL Normal 1.00-4.00 [facility] Comment on above: Order Comment: Speci men Type: BLOOD SPECIMENOrdering Facility: [facility] Address: [address] [place] [address] Performed By: #### 5 7021-8 ####[facility] [id number] [place] [address] Lymphocytes/100 WBC (Bld) 25.9 % Normal [facility] Comment on above: Order Comment: Speci men Type: BLOOD SPECIMENOrdering Facility: [facility] Address: [address] [place] [address] Performed By: #### 5 7021-8 ####[facility] [id number] [place] [address] MCH (RBC) [Entitic mass] 33.4 pg Normal 26.0-34.0 [facility] Comment on above: Order Comment: Speci men Type: BLOOD SPECIMENOrdering Facility: [facility] Address: [address] [place] [address] Performed By: #### 5 7021-8 ####[facility] [id number] [place] [address] MCHC (RBC) [Mass/Vol] 32.5 g/dL Normal 30.5-36.0 [facility] Comment on above: Order Comment: Speci men Type: BLOOD SPECIMENOrdering Facility: [facility] Address: [address] [place] [address] Performed By: #### 5 7021-8 ####[facility] LABIA [id number] [place] [address] MCV (RBC) [Entitic vol] 102.8 fL High 80.0-100.0 [facility] Comment on above: Order Comment: Speci men Type: BLOOD SPECIMENOrdering Facility: [facility] Address: [address] [place] [address] Performed By: #### 5 7021-8 ####[facility] [id number] [place] [address] Monocytes (Bld) [#/Vol] 0.46 10*3/uL Normal <0.87 [facility] Comment on above: Order Comment: Speci men Type: BLOOD SPECIMENOrdering Facility: [facility] Address: [address] [place] [address] Performed By: #### 5 7021-8 ####[facility]IA [id number] [place] [address] Monocytes/100 WBC (Bld) 8.8 % Normal [facility] Comment on above: Order Comment: Speci men Type: BLOOD SPECIMENOrdering Facility: [facility] Address: [address] [address] Performed By: #### 5 7021-8 ####[facility]CL[facility] [id number] [place] [address] Neutrophils (Bld) [#/Vol] 3.20 10*3/uL Normal 1.45-7.50 [facility] Comment on above: Order Comment: Speci men Type: BLOOD SPECIMENOrdering Facility: [facility] Address: [address] [address] Performed By: #### 5 7021-8 ####[facility] [id number] [place] [address] Neutrophils/100 WBC (Bld) 60.9 % Normal [facility] Comment on above: Order Comment: Speci men Type: BLOOD SPECIMENOrdering Facility: [facility] Address: [address] [place] [address] Performed By: #### 5 7021-8 ####[facility] [id number] [place] [address] Nucleated RBC (Bld) [#/Vol] 10*3/uL Normal <0.01 [facility] Comment on above: Order Comment: Speci men Type: BLOOD SPECIMENOrdering Facility: [facility] Address: [address] [place] [address] Performed By: #### 5 7021-8 ####[facility]CL[facility] [id number] [place] [address] Nucleated RBC/100 WBC (Bld) [Ratio] 0.0 /100 WBC Normal [facility] Comment on above: Order Comment: Speci men Type: BLOOD SPECIMENOrdering Facility: [facility] Address: [address] [place] [address] Performed By: #### 5 7021-8 ####[facility]CL[facility] [id number] [place] [address] Platelet mean volume (Bld) [Entitic vol] 8.8 fL Low 9.0-12.7 [facility] Comment on above: Order Comment: Speci men Type: BLOOD SPECIMENOrdering Facility: [facility] Address: [address] [place] [address] Performed By: #### 5 7021-8 ####[facility] LABIA [id number] [place] [address] Platelets (Bld) [#/Vol] 191 10*3/uL Normal 150-400 [facility] Comment on above: Order Comment: Speci men Type: BLOOD SPECIMENOrdering Facility: [facility] Address: [address] [place] [address] Performed By: #### 5 7021-8 ####[facility] LABIA [id number] [place] [address] RBC (Bld) [#/Vol] 3.23 10*6/uL Low 3.90-5.20 [facility] Comment on above: Order Comment: Speci men Type: BLOOD SPECIMENOrdering Facility: [facility] Address: [address] [place] [address] Performed By: #### 5 7021-8 ####[facility]IA [id number] [place] [address] WBC (Bld) [#/Vol] 5.25 10*3/uL Normal 3.70-11.00 [facility] Comment on above: Order Comment: Speci men Type: BLOOD SPECIMENOrdering Facility: [facility] Address: [address] [place] [address] Performed By: #### 5 7021-8 ####[facility] [id number] [place] [address] CNOVSPon 09-16-2022 CNOVSP Visit (SP) Office (HEMASA) HENRIETTA MAGANA ([id number]) 1940 F Date Time Provider Department 09/16/22 3:00 PM MARANDA HOPE During your visit today, we recorded the following information about you: Temperature Pulse Respiration Blood pressure 97.4 degrees 67/minute 16/minute 137/69 Weight Height 72.6 kg 1.524 m Maranda Hope APRN.CNP 09/16/2022 4:19 PM Signed PATIENT NAME: Henrietta Magana DATE: 09/16/2022 PRIMARY CARE PHYSICIAN: Dr. Alex Lloyd OTHER PHYSICIANS: Dr. Holden (pain management), Dr. Flores, Dr. Amin Portions of this encounter note have been copied from the note from 07/08/2022 and has been updated where appropriate, and reflect my current medical decision making from today. CC: This is an 82 year old female with a history of chronic anemia, seen for scheduled follow-up. INTERIM HISTORY: Henrietta Magana returns for follow-up. Her last Aranesp injection with 200 mcg was on 07/08/2022. Since her last visit there has been no significant medical changes. She has mild unchanged fatigue. She denies any following bleeding or abnormal bruising. She denies fevers, chills, night sweats and signs/symptoms of infection. Overall she is doing well. MEDICATIONS: oxyCODONE IR (ROXICODONE) 5 mg immediate release tablet TAKE 1 TABLET BY MOUTH TWICE A DAY NEEDED FOR PAIN calcium carbonate/vitamin D3 (CALCIUM 600 + D ORAL) Take by mouth. famotidine (PEPCID) 20 mg tablet Take by mouth twice daily. amLODIPine (NORVASC) 5 mg tablet fenofibrate (LOFIBRA) 134 mg capsule Take 134 mg by mouth daily at bedtime. luhyc-3v-qfc-epa-fish oil 300-1,000 mg cpDR Take by mouth. carvedilol (COREG) 6.25 mg tablet Take 1 tablet by mouth twice daily. gabapentin (NEURONTIN) 100 mg capsule Take 300 mg by mouth three times daily. ALLERGIES: Sulfa (Sulfonamide Antibiotics) and Venofer [Iron Sucrose] PAST MEDICAL HISTORY: PAST MEDICAL HISTORY Diagnosis Date Anemia Arthritis Chronic renal insufficiency Crohn's disease (HCC) Degenerative joint disease GERD (gastroesophageal reflux disease) Hyperlipidemia Hypertension Iron deficiency Osteoarthritis PAST SURGICAL HISTORY: PAST SURGICAL HISTORY Procedure Laterality Date BACK SURGERY HX 2004 Dr. Guillen CATARACT SURGERY, COMPLEX COLONOSCOPY EGD HYSTERECTOMY HX KNEE SURGERY HX 2009 TKR. Left REVIEW OF SYSTEMS: General: No weight loss, malaise or fevers. Increasing fatigue. HEENT: Negative for frequent or significant headaches. No changes in hearing or vision, no nose bleeds or other nasal problems. Respiratory: Negative for cough, wheezing or shortness of breath. Cardiovascular: Negative for chest pain, leg swelling or palpitations. GI: Negative for abdominal discomfort, blood in stools or black stools or change in bowel habits. : No history of dysuria, frequency or incontinence. Musculoskeletal: Positive for joint pain and swelling and muscle pain- chronic. Skin: Negative for lesions, rash, and itching. Hematology/Lymphology : Negative for prolonged bleeding, bruising easily or swollen nodes. Neuro: No history of headaches, syncope, paralysis, seizures or tremors. PHYSICAL EXAM: Vitals: BP 137/69 Pulse 67 Temp 36.3 ?C (97.4 ?F) (Temporal) Resp 16 Ht 152.4 cm (5') Wt 72.6 kg (160 lb) SpO2 98% BMI 31.25 kg/m? ECOG 1 Exam limited to gross visualization where appropriate due to COVID-19. Gen.: This is an age-appropriate patient in no acute distress. Head: Appears atraumatic with no visible lesions. Eyes: Pupils equally round and reactive to light, extraocular muscles are intact. Neck: Supple. Mouth: Masked. Respiratory: Appears to be respiring comfortably. Neurologic: Nonfocal to gross visualization. Alert and oriented ?3. Psychiatric: No evidence of inappropriate anxiety or depression. Skin: Visible areas of skin without rash, lesions, wounds or petechiae. LABORATORY DATA: Hemoglobin (g/dL) Date Value 09/16/2022 10.8 12/13/2021 11.6 Hematocrit (%) Date Value 09/16/2022 33.2 12/13/2021 37.0 WBC (k/uL) Date Value 09/16/2022 5.25 12/13/2021 4.90 Platelet Count (k/uL) Date Value 09/16/2022 191 12/13/2021 213 ASSESSMENT/PLAN: 1. 285.9 Anemia (primary diagnosis) Severe anemia initially discovered February 2007 (hemoglobin 6.7). Bone marrow biopsy April 2007 nondiagnostic. Etiology multifactorial - in part due to iron deficiency from GI bleeding, in part due to CRI. Shortly after initial presentation the patient received multiple blood transfusions, iron infusions, and EPO injections with resolution of her anemia. The patient developed recurrent anemia in January 2019 due to an upper GI bleed from peptic ulcer disease. With appropriate management her anemia initially returned to baseline. However, since 2020 her anemia has worsened as a result of chronic renal (more content not included)... Normal [facility] CNPNon 09-09-2022 CNPN Telephone (HEMTSA) HENRIETTA MAGANA ([id number]) 1940 F Date Time Provider Department 09/09/22 MARANDA HOPE During your visit today, we recorded the following information about you: Jocelyne Adler Ma 09/09/2022 2:45 PM Signed If needed, place lab orders for 09/16/22. Jocelyne Adler Ma Allergies As of Date: 09/09/2022 Noted Allergy Reaction SULFA (SULFONAMIDE ANTIBIOTICS) 10/01/2012 16 - Unknown VENOFER (IRON SUCROSE) 10/01/2012 16 - Unknown Date Reviewed: 07/08/2022 Reviewed by: Nicoel Gardner - Fully Assessed Reason for Visit: Lab Orders [168] Primary Visit Diagnosis:Anemia of chronic renal failure, stage 3b (HCC) [N18.32, D63.1] Order(s):CBC + DIFF [SQCBCDIF] Order #: [id number] FUTURE BASIC METABOLIC PNL [SQBMP] Order #: [id number] FUTURE Prescriptions as of 09/09/2022 - oxyCODONE IR (ROXICODONE) 5 mg immediate release tablet TAKE 1 TABLET BY MOUTH TWICE A DAY NEEDED FOR PAIN - calcium carbonate/vitamin D3 (CALCIUM 600 + D ORAL) Take by mouth. - famotidine (PEPCID) 20 mg tablet Take by mouth twice daily. - amLODIPine (NORVASC) 5 mg tablet - fenofibrate (LOFIBRA) 134 mg capsule Take 134 mg by mouth daily at bedtime. - yawuh-9a-com-epa-fish oil 300-1,000 mg cpDR Take by mouth. - carvedilol (COREG) 6.25 mg tablet Take 1 tablet by mouth twice daily. - gabapentin (NEURONTIN) 100 mg capsule Take 300 mg by mouth three times daily. 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] 08/18/2014 Malaise and fatigue [R53.81, R53.83] 12/05/2017 Anemia of chronic renal failure, stage 3b (HCC)*10/30/2021 Encounter Status:Closed by ATIF YOUSIF on 09/09/22 Normal [facility] Comprehensive metabolic 2000 panelon 07-08-2022 Albumin [Mass/Vol] 4.0 g/dL 3.9 - 4.9 g/dL [facility] ALP [Catalytic activity/Vol] 27 U/L Low 34 - 123 U/L [facility] ALT [Catalytic activity/Vol] 12 U/L 7 - 38 U/L [facility] Anion gap [Moles/Vol] 9 mmol/L 9 - 18 mmol/L [facility] AST [Catalytic activity/Vol] 12 U/L Low 13 - 35 U/L [facility] Bilirubin [Mass/Vol] 0.3 mg/dL 0.2 - 1 .3 mg/dL [facility] Calcium [Mass/Vol] 9.6 mg/dL 8.5 - 10. 2 mg/dL [facility] Chloride [Moles/Vol] 101 mmol/L 97 - 10 5 mmol/L [facility] CO2 [Moles/Vol] 25 mmol/L 22 - 30 mmol/L [facility] Creatinine [Mass/Vol] 1.64 mg/dL High 0.58 - 0.96 mg/dL [facility] Estimated Glomerular Filtration Rate 31 mL/min/1.73m Low >=60 mL/min/1.73m [facility] Glucose [Mass/Vol] 240 mg/dL High 74 - 99 mg/dL [facility] Potassium [Moles/Vol] 4.1 mmol/L 3.7 - 5.1 mmol/L [facility] Protein [Mass/Vol] 6.2 g/dL Low 6.3 - 8.0 g/dL [facility] Sodium [Moles/Vol] 135 mmol/L Low 136 - 144 mmol/L [facility] Urea nitrogen [Mass/Vol] 31 mg/dL High 7 - 21 mg/dL [facility] FERRITIN BLDon 07-08-2022 Ferritin [Mass/Vol] 307.0 ng/mL High 14.7 - 2 05.1 ng/mL [facility] Iron and Iron binding capaci ty panelon 07-08-2022 Iron [Mass/Vol] 112 ug/dL 41 - 186 ug/dL [facility] Iron binding capacity [Mass/Vol] 322 ug/dL 232 - 386 ug/dL [facility] Iron/TIBC [Molar ratio] 34.8 % 15.0 - 57.0 % [facility] Coding Summary.on 06-26-2022 Coding Summary. CD:[id number] G h0bWw+PGhlYWQ+AE7HBFZ yO40yqKTdcQ6CS3tGFU3A YNPAQBPPBU9OQD3ouAU9J SjwU6JspxNu RtxvtSYqFB37ELr4NNA5q TpjMRszbV9boUVoF4p4Af RyBP83vE17LEuyMNBoEsQ 3LjZpbjsgbWFy X7naDhTyyIIcPhv+PHRhY mxlIHdpZHRoPScxMDAlJy YdwQmuCY8lTg8tMNZoQWA vbGxhcHNlOiBj k4krWBDrDDdnSL4rwYzmS 6YtkYS0QDFpy7h5Yv00gK I+LDNuYFC2rMyeZQdhz53 4IoBpx8uiZYI7 aFJoTExbECZ6I95nm8W7B UBzGARfTGL0cFJ9hU6rtV lpnkmlE2PupUSdUzQ7NZX 2xZBhkP7coMmu papuyL5xTnk+K46DFJ2TJ ZZDZA6LOel0G7AvSkhsyA I+KN46AZVnVH69pQCosBR wf6jqrEw5LqZd SRFxFBZ5oPokGPcuw9BbO JJiT23ybSWnz4V9WWIjcZ zspMApTuAruMD5kN9iEZo xfzial7wetsob Zmpce7dzth23jZ77K06oG OluBNExGAK6IGWbURIeqJ blyt5osV9hOt9+JDfvq1f gc9azeQw8KmMu QUJlurBspIebGEM1b8StB q91O7AiyQlin5GvAiw8tm 46yMDgx4I5rMW2GFxdAAZ wzQ0jVYtpMxH1 HNVyBiWbgQ19pFPrRSimU h3gqOczcRmqBF6jGGUeoo huXOOllA5rAIZhhMHsbQe cRK0zRYLkoguy k549WhAjQUM7UWDhvWVyD 1JgiT4tXdVmNKPaJSNkV9 JlcYPjESnaY384GKxuGpJ 6FZPfwlIdR4Jw UPMymDxgXvN4v3L0Iy6Tr 7HqouchMLT9KLlwIDU1Qh A4DcMyXdU3Z0GzEms5RBK xyGiwWL1pG0Nj PQZblfervcxaoKQ4VSQaC PNroX89gFSfPRzcMj4fe4 G0p068CSYmGNDijM52Dd0 udDogMTBwdCBU uP6ladnew4bbhlkgItEnT HTcZZk8TYk0MOTyjIseKg TdOAT3UuS0KUE2aMAyzP3 biAgvqpbhlU0n Oyc+Y31tnH3hFQD6CFF0v mxeDVZhnvLhKD56YL68E7 RyPjwvdGFibGU+PGRpdiB odQqjXL7zMqFh p6jeu6BuWGsrE9EbBBLeQ RiuEaa7QJApTHY4zFB7nQ 5aVPHyQJhja8L7lCR5X7F zvgXkwf3rv5gq EGGiLDxsR30luOWdq7C4A EHzzHP1TJYtmTvhAtRmxJ 93Oyc+JLXnmLfet2WcAeh mr7ffq9eemPp6 NbFaQHZfpmBhuOwwJRG8k 1YsFl86I67wBOryCJNiAP IfCIOfHSPbfCavby7hpP0 wIi8+PGNvbCB3 wFN2iN3iUKHvSmO7VPypI 958JqQahCFuLsnel3lmo9 xpiCz8AqPyJJJrngIvsTm fZLX3e2CjYe77 O32iLPsjAIIiUDZvMGRqG BRlfUdgap7ejM1mYa0+PC 3lv0nahb20oJ61kUD+PHR kRQN9yBtiIWxj XOSzsM0lMJprNaM8UJCrZ mDeaA13tOVcONqaFi0bbF dxhDouQL8bQRZexbddq94 2DwZfm1meTHSa uHKaVWimXWR0G18tk1O5C HClGYTqVXM4aXB5fA9eyP lnbjogbGVmdDsgdmVydGl kODqhZPieS856 IHRvcDsnPlBhdGllbnQgT bXbEDj5I4RcUiw1JWXaeG niIR8ojVLeQAwhGr5aiNe jiSieJS3uRLUr ytfnr032JlKvl7dcUNYbg YDbLGsaVRA9G85fd8O6JI JyRKVoKXL0iPU6uS1beEd nbjogbGVmdDsg mfRywHmnBXvmJWyhO619E HRvcDsnPkJpcnRoIERhdG A8GJ14MN77yBUmy1T4sEH 8O7AwLUQlywvr khyfmUW5PZXvRRHhqA51K p6dcNfkJn9vIBFcPST0IG QzhNWgS5PnmC4vAqRePTZ gUIWkA2CyzNTw JYlxS948VMyhInX9UZFap lMkX8MnADJcbPzfZrE9w5 E9Jq4HY2K9CA27OQ62zWY ib9D8mLV4D5Dd GSKkkwuwcivpkVA1EJKyM EFazX94Kx1qiDeaEy3eTQ EfPDV4DCGksBIqV4GvuQ1 yOiAjMDAwMDAw W4RbuFPdIQxkZ290ZIcsV qG6DMRtitEaJ9CrRYWpxK caGzM7i2K5Xi5MJJz3ZD4 6TC25oFEfm5D0 oMF2G7XzUXThvlcgdqwuj ZV2FUZjPGJrxC45Tg0zkD rmWx3lOTKeSWM6RZWvgTK vV5CjzQ6yAjBu ZBRsWDSxX0EuqUCjOZlqT 767JVnzFnZ3BIIqugCbK7 VeITYucEmvUtV9t2C5Bz4 CZARtYD94KGR9 jJQ6BQ82WD22V4HbKyqmz GFibGU+PHRhYmxlIHdpZH RoPScxMDAlJyBzdHlsZT0 dJm1mPFSiZFFe vFrvkVDjUiWrq2hqLRUpQ NwwDR7ybCjgI7AnlIA0WR Dbs2i4Bv27P60eV9ArtTY +MDYpyGF1hPW1 sU3xZoQjWvN0NNeqW448X dKgdFJtTljmf3uvb2cfnS t9BbM0LKUvplBxvRjdIBS 3r7KsJj24U87h IHdpZHRoPSIxNSUiIHZhb Bavzh7ntF4oMx9+PGNvbC I2yFP4yB8yLqOkPkW1SMl pG231UcVtyFOj Frsor5vkc5fwsPm5DnEiJ XVdjkTquDjnJSU4z1IbHv 29X5XbuJnmt8GuCpl7dy5 8wHUly4Y4eJP7 A5CdRGCucaufnPLcfMhbI K6lFMXmiicfIITodX1cLF YwW9d3BdDoLqB4XJofY3U bkyH7NMScvKPk URwhEJD1Q77fx9R4NPSeT FRbAVD9fSU6lB3olUmnla ogbGVmdDsgdmVydGljYWw rILjhJ895ZJCn eNbdQWHlsP2vECZmlGJlx OwiFC1aETJlajawWtBFMD URZITUEI8ZFXGZBU82LE3 8qUOqg4X9jVS9 O2HsQFRrdqvkhepazZJ8Y DDhSZBgaC63fDBiHPlgDh 0ic1Z6z338WRXsEWPwtJ7 5Dn0pmFshYCFy bLAFdL2qdcrpr4cckbwqE wCpWTHaDPy8NIe3LGBqtN vfYlAwKBV3SiH4INF5gLF feH7reQlhtuhv xV1wLyf+LJDiCuUnWPr7C DwvdGQ+YDIbXIV1nPrzOO avCOBwzQ8jWUPtX1u9BkP eTdS5MVliL2Dd YTMunjnhAg16zA6fRgTwU pI9MCuqR0KokyI2HQIyjA YbTDcyVIF5W67vv9Q8GJS zICRqUZN6gOE6 xH4zrQgoydzylNQkuIxjf zUgwEneLXsfDIgmP427ZA RvcDsnPjgyIFllYXJzPC9 0SU69eXOva3K2 oJY4V0UzRTZlqnybvrjfr UO3ACFzGYVfwB10xFWmBL brIu5mn3S6e000CGQlBNK ouS38Vv7qpCew EXUqyRMRfL1zriqrd4uab iljXhQhWVZuXGw8TUa5ZH ZlzRwwRqHvGCC7IsN5WBU 2qHPwdO4waVzl erbhfO0bNin+RmVtYWxlP J10IB56oAWhk1O8lFB3F0 EbPZDovkazqhcxsQJ4RKV kMNEwtH45jPKd QAfcYk3qr8O7a912LQGdO AQebZ82Cp2hiViiNHNisJ QEzZ4ocxnyh8rtxdpnWtF xJDXxBGp6IRu6 WXFduXroUnLfPHK3HbC7U TZ4gXMswP6xgXadiikvkM 9wOyc+JDYipzJBPK8zI6N pGP82SR02SF01 K2PiNdfpzHXsmHJ+PHRhY mxlIHdpZHRoPScxMDAlJy FwnIfvAB2xZq8dPFSmOXU vbGxhcHNlOiBj p6abSPXxPSdjBK9lcHjfX 2VyuFS5RDUmv6x5Ch12X5 1zC5FnkTB+RFJidUV6jBH 6nL7xJuIyUcT2 ICjhP370TkTtePGtMdlwl 5nhh1yzoBp4SzJcGYVhod IrlIxdAHX1r2OlCt92Y31 sIHdpZHRoPSIy VAKrLVHzrNtwii9adO6bD i8+ZXMpbKL3qYT6vZ4wZt CsLbF5NWxcM355HfUkqRI uKkkjE84dW9Ox dXA+RIIrYsd3LGPnvCepF S5vuYOrLWaaAa5dSJG3Ux YiRbXzQPudA5MwLOHvtjb sujdroJQ6NFQz YAXwaA68Cg6vlEhyLz1fU HScDKC7MJZulKQoC2HxnN 0jRcGmPCLoNQZbN2OdfOY mPLgeT523DTyz WqY6RUUeebZfK6IhJTOhs UrrJlS5g9A5Qo1ZfNyjsI HrPM8xMoNdARc6L0WbVjk 2VQMeeJbqDX2v eUXvAHhbEl8bxGqurFnmI Z7hFJTkctfzf814IyPqf0 rpIGBxtGDiKGefSXZ9I28 sl0A5WYGvAOIj ZAA5qDK0xZ5jeZacyozjp GVmdDsgdmVydGljYWwtYW bsF405YYIkoJwuRaHONll 3A2GmZkk8NLHi kVxsFZ1fvWExUTqvRb4vo EjjwMpeJR9jVNBjjsdbv0 42YmZdj2vsOLSrlWBfMYy sVNX8O28gz7A4 WXPdIBYnXWQ8rMC7zL9wq GlnbjogbGVmdDsgdmVydG hsUNfnHLvdQ797PBAorHt mNx9LXlc1B5Nw Yjh0HBZrsRtzKV9dyUUhO QxfEs6hhOvzfTgtCO0uUE Oamayjy086KuLhh0vrDRI wcHQgVGltZXM7 Q54ue0H6EEVlIKGtMAZ1c CB4aX3zdKvzbpczgJFuaO qjguFzxSclRXmuAXjyS01 6IHRvcDsnPlBh eWVyOjwvdGQ+AO21rt95E 0PuWtkpNtv9XZMhYNB4oV F2rL1mWMDdQKnws0P7kJZ 1Y2RetrKhlg7r b2xs (more content not included)... Normal [facility] Consent for Treatmenton Consent for Treatment [id number]# 1.00CD:127 Normal [facility] Office/Clinic Note-Physician on 06-20-2022 Office/Clinic Note-Physician [id number]#1 .00CD:127 Normal [facility] Outside Records Officeon Outside Records Office [id number]#1 .00CD:127 Normal [facility] Patient Correspondenceon Patient Correspondence [id number]#1 .00CD:127 Normal [facility] Patient History Officeon Patient History Office [id number]#1 .00CD:127 Normal [facility] MRI LSPINE WO CONon 05-16-20 22 MRI LSPINE WO CON EXAMINATION: MRI LSPINE WO CON HISTORY: Low back pain , chronic COMPARISON: No relevant comparison available. TECHNIQUE: A variety of imaging planes and parameters were utilized for visualization of suspected pathology. FINDINGS: For the purposes of numbering, sagittal T2 image # 11 extends from the T9-T10 vertebral body superiorly to the S4 level inferiorly. PARASPINAL AREA: Normal with no visible mass. BONES: Marked left convex curvature lumbar spine with grade 2 left lateral listhesis of L3 and L4 vertebral bodies. Marked right lateral wedging of L4. No bone lesion. Edematous bone marrow marrow signal adjacent the contiguous endplates of L4 and L5; moderate type I degenerative changes versus compression fractures. CORD/CAUDA EQUINA: Normal caliber, contour, and signal intensity. DISC LEVELS: 12-L1: T11-T12 moderate left paracentral disc protrusion causing mild foramen narrowing. T12-L1 is unremarkable. L1-L2: Mild to moderate left foramen narrowing. Mild diffuse disc bulging and disc height reduction. Mild degenerative facet arthropathy. L2-L3: Mild central canal and moderate foramen narrowing bilaterally. Mild diffuse disc bulging with moderate disc height reduction. Moderate degenerative facet arthropathy. L3-L4: Marked central canal and bilateral foramen narrowing. Marked diffuse disc bulging with moderate disc height reduction. Marked degenerative facet arthropathy bilaterally. Suspect posterior decompression. L4-L5: Moderate central canal narrowing. Marked right mild left foramen narrowing. Moderate diffuse disc bulging with moderate marked disc height reduction. Marked degenerative facet arthropathy bilaterally. Posterior decompression. L5-S1: Developmental variant partial lumbarization of S1. Moderate narrowing of left neural foramen at its lateral most aspect. No significant central canal or right foramen narrowing. Mild diffuse disc bulging and mild disc height reduction. Marked degenerative facet arthropathy bilaterally. IMPRESSION: 1. Advanced scoliotic curvature of the lumbar spine with marked lateral wedging of L4 vertebral body; developmental versus chronic compression fracture. 2. Multilevel marked degenerative disc disease and degenerative facet arthropathy with greatest narrowing of the central canal and neuroforamen occurring at L3-L4. There appears to be posterior decompression at L3-L4, but due to significant curvature of the spine this appears to be of little benefit. Electronically authenticated by: MERRILL KENDALL Date: 2022-05-16 07:56 Normal [facility] PTH INTACTon 05-16-2022 PTH, Intact 26 pg/mL Normal 15-65 [facility] Comment on above: Performed By: #### U RTPCR #### [facility] [address] [address] [address] Ashley Luna VIT D 25-OH LABCORPon 2021 Vitamin D, 25-Hydroxy 31.1 ng/mL Normal 30.0-100.0 [facility] Comment on above: Result Comment: [place] min D deficiency has been defined by the [place] [employer] and an Endocrine Society practice guideline as a level of serum 25-OH vitamin D less than 20 ng/mL (1,2). The Endocrine Society went on to further define vitamin D insufficiency as a level between 21 and 29 ng/mL (2). 1. IOM ([place] [employer]). 2010. Dietary reference intakes for calcium and D. [place]: The National Academies Press. 2. Casey MF, Constantino NC, Lauro NG, et al. Evaluation, treatment, and prevention of vitamin D deficiency: an Endocrine Society clinical practice guideline. JCEM. 2010; 96(7):1911-30. Performed By: #### V ITADLC #### [facility] [address] [address] [address] Ashley Luna HEMOGRAM AND PLATELon 2021 Hematocrit (Bld) [Volume fraction] 35.7 % Critically low 36.0-48.0 [facility] Comment on above: Performed By: #### H H #### [facility] [address] [place] [address] Dr. Ashley Luna Hemoglobin (Bld) [Mass/Vol] 11.6 g/dL Critically low 12.0-16.0 [facility] Comment on above: Performed By: #### H H #### [facility] [address] [place] [address] Dr. Ashley Luna MCH (RBC) [Entitic mass] 33.3 pg Normal 26.7-34.0 [facility] Comment on above: Performed By: #### H H #### [facility] [address] [place] [address] Dr. Ashley Luna MCHC (RBC) [Mass/Vol] 32.5 g/dL Normal 29.9-35.2 [facility] Comment on above: Performed By: #### H H #### [facility] [address] [place] [address] Dr. Ashley Luna MCV (RBC) [Entitic vol] 102.6 fL Critically high 81.0-99.0 [facility] Comment on above: Performed By: #### H H #### [facility] [address] [place] [address] Dr. Ashley Luna PLT 240 103/ul Normal 150-450 [facility] Comment on above: Performed By: #### H H #### [facility] [address] [place] [address] Dr. Ashley Luna RBC 3.48 106/ul Critically low 4.20-5.40 [facility] Comment on above: Performed By: #### H H #### [facility] [address] [place] [address] Dr. Ashley Luna WBC 5.0 103/ul Normal 4.0-11.0 [facility] Comment on above: Performed By: #### H H #### [facility] [address] [place] [address] Dr. Ashley Luna MAGNESIUMon 05-15-2022 Magnesium [Mass/Vol] 1.8 mg/dL Normal 1.8-2.4 [facility] Comment on above: Performed By: #### U RTPCR #### [facility] [address] [address] [address] Ashley Luna RENAL FUNCTION PANELon 05-15 Albumin [Mass/Vol] 3.4 g/dL Normal 3.4-5.0 [facility] Comment on above: Performed By: #### U RTPCR #### [facility] [address] [address] [address] Ashley Luna Calcium [Mass/Vol] 9.4 mg/dL Normal 8.5-10.1 [facility] Comment on above: Performed By: #### U RTPCR #### [facility] [address] [place] [address] Dr. Ashley Luna Chloride [Moles/Vol] 103 mmol/L Normal 98-107 [facility] Comment on above: Performed By: #### U RTPCR #### [facility] [address] [address] [address] Ashley Luna CO2 [Moles/Vol] 27.8 mmol/L Normal 21.0-32.0 [facility] Comment on above: Performed By: #### U RTPCR #### [facility] [address] [place] [address] Dr. Ashley Luna Creatinine [Mass/Vol] 1.67 mg/dL Critically high 0.55-1.02 [facility] Comment on above: Performed By: #### U RTPCR #### [facility] [address] [address] [address] Ashley Luna EGFR-AF ALBANIAN 36 mL/min/1.73m2 Critically low >=60 [facility] Comment on above: Performed By: #### U RTPCR #### [facility] [address] [address] [address] Ashley Luna EGFR-NON AF ALBANIAN 29 mL/min/1.73m2 Critically low >=60 [facility] Comment on above: Performed By: #### U RTPCR #### [facility] [address] [address] [address] Ashley Luna Glucose [Mass/Vol] 152 mg/dL Critically high 74-106 [facility] Comment on above: Performed By: #### U RTPCR #### [facility] [address] [address] [address] Ashley Luna Phosphate [Mass/Vol] 3.5 mg/dL Normal 2.6-4.7 [facility] Comment on above: Performed By: #### U RTPCR #### [facility] [address] [address] [address] Ashley Luna Potassium [Moles/Vol] 4.3 mmol/L Normal 3.5-5.1 [facility] Comment on above: Performed By: #### U RTPCR #### [facility] [address] [address] [address] Ashley Luna Sodium [Moles/Vol] 139 mmol/L Normal 136-145 [facility] Comment on above: Performed By: #### U RTPCR #### [facility] [address] [address] [address] Ashley Luna Urea nitrogen [Mass/Vol] 41.0 mg/dL Critically high 7.0-18.0 [facility] Comment on above: Performed By: #### U RTPCR #### [facility] [address] [address] [address] Ashley Luna UA RANDOM W/MICROSCOPICon BACTERIA LARGE Abnormal NONE SEEN [facility] Comment on above: Performed By: #### U AMIC #### [facility] [address] [address] [address] Ashley Luna Bilirubin Ql (U) Negative Normal NEGATIVE [facility] Comment on above: Performed By: #### U AMIC #### [facility] [address] [address] [address] Ashley Luna CAST NONE SEEN Normal NONE SEEN [facility] Comment on above: Performed By: #### U AMIC #### [facility] [address] [address] [address] Ashley Luna Clarity (U) CLEAR Normal CLEAR [facility] Comment on above: Performed By: #### U AMIC #### [facility] [address] [address] [address] Ashley Luna Color (U) LT. YELLOW Normal YELLOW [facility] Comment on above: Performed By: #### U AMIC #### [facility] [address] [place] [address] Dr. Ashley Luna Crystals LM Nom (Urine sed) NONE SEEN Normal NONE SEEN [facility] Comment on above: Performed By: #### U AMIC #### [facility] [address] [address] [address] Ashley Luna Epithelial cells LM Ql (Urine sed) FEW Abnormal NONE SEEN /RARE [facility] Comment on above: Performed By: #### U AMIC #### [facility] [address] [place] [address] Dr. Ashley Luna Glucose Ql (U) Negative Normal NEGATIVE [facility] Comment on above: Performed By: #### U AMIC #### [facility] [address] [place] [address] Dr. Ashley Luna Hemoglobin Ql (U) TRACE-INTACT Abnormal NEGATIVE [facility] Comment on above: Performed By: #### U AMIC #### [facility] [address] [place] [address] Dr. Ashley Luna Ketones Ql (U) Negative Normal NEGATIVE [facility] Comment on above: Performed By: #### U AMIC #### [facility] [address] [place] [address] Dr. Ashley Luna LEUKOCYTES MODERATE Abnormal NEGATIVE [facility] Comment on above: Performed By: #### U AMIC #### [facility] [address] [place] [address] Dr. Ashley Luna MUCOUS NONE SEEN Normal NONE SEEN [facility] Comment on above: Performed By: #### U AMIC #### [facility] [address] [address] [address] Ashley Luna Nitrite Ql (U) Positive Abnormal NEGATIVE [facility] Comment on above: Performed By: #### U AMIC #### [facility] [address] [address] [address] Ashley Luna pH (U) 5.5 [pH] Normal 5-9 [facility] Comment on above: Performed By: #### U AMIC #### [facility] [address] [place] [address] Dr. Ashley Luna RBC 2-5 Abnormal 0-2 [facility] Comment on above: Performed By: #### U AMIC #### [facility] [address] [address] [address] Ashley Luna SPEC GRAVITY 1.020 Normal 1.005-<=1.025 [facility] Comment on above: Performed By: #### U AMIC #### [facility] [address] [place] [address] Dr. Ashley Luna UA PROTEIN Negative Normal NEGATIVE/ TRACE [facility] Comment on above: Performed By: #### U AMIC #### [facility] [address] [place] [address] Dr. Ashley Luna Urobilinogen Qn (U) 0.2 {Jaquan'U}/dL Normal 0.2 - 1. 0 [facility] Comment on above: Performed By: #### U AMIC #### [facility] [address] [place] [address] Dr. Ashley Luna WBC 75-100 Abnormal NONE SEEN [facility] Comment on above: Performed By: #### U AMIC #### [facility] [address] [place] [address] Dr. Ashley Luna URIC ACID SERUMon 05-15-2022 Urate [Mass/Vol] 7.3 mg/dL Critically high 2.6-6.0 [facility] Comment on above: Performed By: #### U RTPCR #### [facility] [address] [place] [address] Dr. Ashley Luna URINE T PROTEIN CREAT RATIOo n 05-15-2022 Protein (U) [Mass/Vol] 14.6 mg/dL Critically high <=12.0 [facility] Comment on above: Performed By: #### U RTPCR #### [facility] [address] [address] [address] Ashley Luna UR PROT CREAT RAT 0.26 Normal [facility] Comment on above: Performed By: #### U RTPCR #### [facility] [address] [place], [place] [address] Dr. Ashley Luna URINE CREAT 56.96 mg/dL Normal 20.00-300.00 [facility] Comment on above: Performed By: #### U RTPCR #### [facility] [address] [address] [address] Ashley Luna Coding Summary.on 05-06-2022 Coding Summary. CD:[id number]:[id number] G h0bWw+PGhlYWQ+AS9UEOJ gA89crQAtmL9NQ5sQPK2K OJVSPLSWMH1LED4pvXC6A YqdF0NyxiZn NkgzrQRiKP30VMu5ZOU7z RzxLNhjkJ4maFDsM8v2Wj NoDZ01pT30TQrsYZXuZvX 3LjZpbjsgbWFy D8wgQgGupQCaLkw+PHRhY mxlIHdpZHRoPScxMDAlJy ZdbWywED0oMi9iEYPwVPO vbGxhcHNlOiBj u1ixYGWnQRfvVX7aoHcqL 0BvePB8UTPpf4y3Kd90vO I+CGZnPLU6uIsgYRtfi52 9PhZpd9oeSPE1 hYLkVZimUKC8V54bo7K7I WQsJASwGGY8yLQ2uU2lcG ltosseN2JdnTEcUoI4PBS 7rVZtaI2hjZwd tnveiH9zKjo+H67ZVW7CR VZCJQ9QGdl8Q5LlRblehU I+ZU02MBGkZJ57wPIfnQH he8dpmXd8LqXx RIEbUJL5xZpsVQgqx2PbR XHmO67ncKZca5N3EROmrL kscPFqJzVwtKM1bA0xKCk tpvbdz7flufhz Utkqm0lplv58mC59D39eM OcrAJLyEEZ6VINdXBJudE rwui8bzB5rRd8+HWhtg1x xx5pnlLa1ReXq WFIynpAuuSwxVEK2a6CbZ f47Q4YvkBfjk8RkJjk4vb 71pGLap0R6nPD7ONutOPT ggS2xEHhrToS1 GGVcUrHjiV81zGBxIJunS j3bmFycsSbkEB1uGSYyls rbICNtbK1gXCFqhJVrfLv oUW0aFUBdigng z875EzJlOIV8RLGwyBCgQ 8BdtD5zKuWwMTZpAWJtB0 GypMYjRXftY893IFuqZuI 5GNCnziSdG0Di BWArvBmlOdB8a5I7Dn6Az 0IcrbiiWEB4WQhbPZK5Zc P6QmZdMhI7S8QbWaf2HBC isDikES9gO8Nz CHGtplzgpsxewMU6JLUtD LYfkR92xJYhOXkgQt6bo7 N4o956YTMqEMLotO28To5 udDogMTBwdCBU uW8gfavif0jwnehrXbMpM LSjRAw1EXn3OAJfrUqjVl PkVRK5FjF8DRI6nPZklB6 jaRjrekgthS5p Oyc+E55ozY5lVIY6VGX6e ctmLLMyijSpCW45OV81Y8 RyPjwvdGFibGU+PGRpdiB rsSliDL6bSuUt z0cfc6VwUBvaX9IqPBYdH PmiEzg8ZSKjFVX3jQU1rO 3xCWZiFHoai7A4mFC6B6V zstBghg2xa0pl HRXgFNbdB76duSSha6T4Q CGjnUQ5KDCwbXyaKsSkyZ 93Oyc+PMWqoOlbl4LoSld oj8vqv8yynIk3 CdQhKIXjuoKieUljVGQ3o 7LxHv56I51dFBdoDFVrZZ JwMZPzAMOscMbonw4imO2 wIi8+PGNvbCB3 tUB2eD1mTJPjNzJ2LIqmK 329KbKmrPFrSiwsm3nmd4 bwrBy1SqOpMORoemVdeQc eVDA5b8KrSq23 I06qJSwyHZAqDUNcUIRqZ RDrzKzqpw9ezW0yNy4+PC 3qw1gvdg95cR45fLU+PHR kXOS5sBvdOYvy SUIjwM4eWUreAsS1SCXmV oNfdI24dCYtCGfxEd3wyP khpJxlOD0sSKDoeotqo68 2XqDuc9kyPGNz mZHwTDcwHEY6Q55uh9I1B AAsUHKpTKS4iYL5yE0jrR lnbjogbGVmdDsgdmVydGl ySLplGNmgO997 IHRvcDsnPlBhdGllbnQgT cJtLTy9X3GmBap2STTdgH nzZB4vtEHbQQttFb5epOr luZdqFQ3kRTPp azzyx942QvDji5anXCQtf LNpYZgrGFM1H90bb1D7CM VsWBHmDWA5iYM6hI0ihCw nbjogbGVmdDsg hiCjaRkmGNpcZAwoF179S HRvcDsnPkJpcnRoIERhdG C0MP80GN79eCIjb1O9vUK 2U4YzIPSsajwp zezpyZF6ERSeJKYicG82G g2zxXuwYy3fDOAfLOU7TK SwlRAuL1ArwO9oIaDfDTH vKXZaW9SicGDm HUydH999KLdcAeD7LTSgr gKpQ3YsJLNchDgyJsC4a8 A7Db5YM7A1TY24HP72bLX ll0I3bWA0A3Qz UHEsshvlklfnbRK3QHNpB CUbkF85Un2mmHpiRa8wZQ EsRXH0MOMgqOBbT1JjfO1 yOiAjMDAwMDAw I8PasYVrJAzmK662NZpzI fF0UIJlbaIfY1SgGCZrbF dtWuP5d7G5Le1WZGd5OI5 8VX56eDIjt6A0 uBP5R7DzKLWrjqquhdtdg XB4PPZiRYIwcJ96Zr4ijI ryEv2gWONrQCU9WJRdyIJ vK0HthF7lKsTd XMOkXQEoK8SiiTIwHUwsG 068RTebOjI9ERIbnhXpT3 PpLMGmdJfwDbX2b1M8Gv6 IDWPjKI32ZCF9 uNI8HP36CA09T3SuTlnzs GFibGU+PHRhYmxlIHdpZH RoPScxMDAlJyBzdHlsZT0 gLu6hDWVoOVEc aHlopILxZxSyb1ggCBLcJ ZnyAW2ujHfjE3RtjOG5QR Jqt4o2Yk86T40kC7AopYK +ERWvmTY4tUH0 yF9bJcNqSgB1NQncW099V nXeaZBvKqwdw2vbt6wcwK n0LjG7BDCzslRdbGnvFJE 2i6TdJo44G91e IHdpZHRoPSIxNSUiIHZhb Lgwbc2ruH5wGv4+PGNvbC L6zOC3gO9wIqNpAqU4JGp bR976KlJfwMNh Puzdd6qok9jajCh9CdJfT AGysgXniRsdNKM9l8NxUj 99J5DaiHqcx1UvDpe5ru9 4vGFmy0A1cIQ1 X5WeAALusechmFDnoDkwQ U6cNYHaxkbtTAJwcR9bDN JmM3n6DzKrKkX1PXddM4G xtpU9IHRvxZDl ENelQEE3D64dd6C7UWSyW EBnXTY2lWS9aM9hvMfhoi ogbGVmdDsgdmVydGljYWw uIWzcN137DQHs cIimVVExvV8jHRNnxKRvk TypMD4sXIAsgutfRdKZPF XMVUHYGO1PPUQFOE61ZN9 0xGTog6U8tCO5 Y8HcWXAbilftnpqteTE0O EIgQOAkoW81rHNaEZcwId 4bu2B9n123GOKjIKDdeW7 9Pp3lnQzhURHh xSVXsV3hmaght7pmemqcN rXqRKDwHPc1YMw6PXQvcK soXjVgJWZ9SrM5BAS4sNL frE5fgGjxbkzq fE0uBwe+MGEeIdXpKCk1Z DwvdGQ+YVKnAIV0dZbsQH plUEBojI6eBCCrC7i3KvG mRrG2SDypM9Fq FBBtyzgwXa51hT1bQmGtG uF8JLjzY9NawtW1FWLakX HqUVzvUFV5H50ul1S4DLL zFWHdEWS2fEB2 pP4suAxyktigrPBemLrwl yLasNjlJNrmKMgjJ211GJ RvcDsnPjgyIFllYXJzPC9 6KR57rFDdx1J2 uXO5Q3DcACJqxxvmhwjdl OX5VYBjFABrnM15fGKrRH qqTr2kh1P9p369MRDjGIQ byH43Wp0tpNxv SDOuaNFMxG5wxqrap3irb infWtUnOAYqKTx3CBf1KH BnvUnvGsSgUBY8TrD8BDB 9fYBapI6aqUsa yclhjN0lFvr+RmVtYWxlP Q98UO64pOUer4V9bMQ2D1 InITKpzjxjuuyfxQG8PCA gNKOjrO01pRYd PJvuPz2kx4F0v586BAVkN OMcuY35Aq6btQwfNINwyA CMrR7svvpbm7zpfasdGoS nQZNxWNw7MZx8 IQLiyCjfDbUoMLW0AdR3A IY3kTVxrR3qqMtckbqfhF 9wOyc+FPQnqtCUUC7fX4D wIQ06HH31ZD60 V1PgGefekJBwnWP+PHRhY mxlIHdpZHRoPScxMDAlJy LkoHtlYV6pAp6hYQKdHMZ vbGxhcHNlOiBj p0cwAYUlIQdlZH3rjBfrO 7AllMQ0PPHnl0f0Nn78X3 7uH0MttOE+JSEbyKQ4bMG 7bK4vGmMgXpO6 OXanW447RwHcqYIoFdqlt 2cbd7tzsXx9TdYfOCXgow FkgWcgLEJ9l9BaIu10Y19 sIHdpZHRoPSIy BQTwKOGygVmalw3uoF4bS i8+NSJpxQD9tAM6xO7zAh InLoO0DMizA259FtFcbZJ eWtsiW70zX1Cq dXA+VMAkGuv4SXPngRasJ F8eoSQpDJtgBk1kNQR5Sr AnTfVaZQinK8UcXEJenod xtikmlUD0EJKs PLApbV53Gk0zzFehCx9mU NUjCRJ9EIGlmKErC4UtmL 9nCbOjKVFoGCVtL7GlnRI iICjbQ777GUgy DcQ0BSHcgxNnY4XtGCHdn UoxGzW7t7H3Wa3LjVoruB YhQJ5fDwOaIWs6E1UvMsa 5UMKwkNhkZS5t vMUzNPwvCn4eiKbypEptU N5zQSKyxpdui055NuUzz4 vbIPXovFNfUNqtEDZ9L09 ht2H0JSMtESXf NCU8aAS7kS9baVkqpjogb GVmdDsgdmVydGljYWwtYW rzQ275FDJswKsqDaHZMwc 2W9QwEoc1AEOz qNwsKB2qxCJoAUzkKf8gc IcfhIqxQW1nEBQolsmtn4 52VxRcv9iqOVDydOUrLZm qMCJ1L09tv8H7 OWAtCJAqFFG4lTL0qA3gy GlnbjogbGVmdDsgdmVydG qbPOgxTQfyN824HABjdRi aPd3SAif7L7Da Nbr0CEVouZmoMO4fsIUaG KteKp8lwXueyTqoKU7cHB Pyhcrsq028ScBfa1hxWOF wcHQgVGltZXM7 B37ez4J8UISdRSFkHGX8s JD9pL6omEyalngbjPGzhC kzdxMmdLirHUftWToaP56 6IHRvcDsnPlBh eWVyOjwvdGQ+PW01mq83F 2ScSeqyGti1AUDoPRE0aU S3wS5qJENcASdwj6B6oPZ 4E5IbqhJkae0g b2xs (more content not included)... [facility] Consent for Treatmenton 04-19 Consent for Treatment [id number]# 1.00CD:127 Normal [facility] Office/Clinic Note-Physician on 05-02-2022 Office/Clinic Note-Physician [id number]. [id number]# 1.00CD:127 [facility] Patient Correspondenceon Patient Correspondence [id number]. [id number]# 1.00CD:127 [facility] Patient History Officeon Patient History Office [id number]. [id number]# 1.00CD:127 [facility] Coding Summary.on 03-14-2022 Coding Summary. CD:[id number]:[id number] G h0bWw+PGhlYWQ+JJ4BGVX sC00beUSgoB5AE6nCDY2J YAYBHDEJZH0ZEE4dpRS1G WutQ8WuarJl DqzckTJiKB28PUr8YUS1r IbvIGkjyG2qxKVnM0k5Uy CsBH29uA69TAgjWKAfTiN 3LjZpbjsgbWFy K7qkJaEriDWkNgm+PHRhY mxlIHdpZHRoPScxMDAlJy RqeGsfBH2kGb0qLAZzDGK vbGxhcHNlOiBj v1xxLBVmTRydGL8drFzgE 3LemEB2UOKup1a9Jf95hH I+XAZgYWT0vIylHTgjh48 5MfMkx5czIVZ8 eLWpILtiXSU7Y80qz8V6K VWoPRGdEMC8uJX2jY3stO qtvcliN0XtvPObVjZ1CCP 6oHLqdQ8tgTue uqwwsR8eRsg+I57LEK8IG HHZBF3LIcj3W6ZaFjkwvC I+BX06PUGgGH61bIDqqPS cr8tkyNz5VvCp XNRxXSP4vQgyFRbfp8XeH SJuZ81azJEph4T9LLTgrF kqgUSrEfDajXI4eN6hOTt ggpuwu5nzsmfd Dmbxo0vwpq86pR62X25eL BciYQCfQZT6NCTaWCBgoA ehdu6xxI1jYy2+TFnio7l ek1xjxMd9HySj NBIghqCwkSegDEG3y9QqE w92E4CzqNmtp7WfYko5ur 93lAYwz1I1qMC6RMdgSYO smK2cIUbvZtJ4 ZWBfVrUqeQ66qSUnGEtvO j0ziRgpiDjzPS2gHCDgft suLDEbpE4kNOKnjIUsaJi fAN9jKIVzqymr a875AdFmZQJ9KINigXOuT 2TdkI3nVnRtDEXfNWQuE8 NwcBIqYBcfA944JGjcZzV 7ANKalrCzF4Wx HXQciOwqWiZ7h5R3Uh8Ag 7ZzxlvaLNA2ZIvcDVO6Ez L9QpVwJhU0A7WaDtk4MUZ neCkeYF2kZ6Zz HVKrbeoyyqzcqQK5ERAaF ERurF07fBKcPYvmWh1el7 H4c612UHTuCJRqgI26Ek3 udDogMTBwdCBU gG3csyaou8kmvxsyEsEyB RMoOGs8AFg7QEWijPwxOm VpNYU2HnZ3VDC9kIOsaD5 srXjrmnuxbB7e Oyc+A22vpG2pSCA1JSE5v afrQWBbnxXaRQ28AN23K1 RyPjwvdGFibGU+PGRpdiB qrRrhWU0gShVx m0lgq3NcEEqoE7SxYBIcF BfaOvl1JEGqBEW2cDY2wA 2vATEwEBzxo0Q1iRX2T7L eitSqyr2vh7uy MVOgCHdpL30crOXiv5G8Z QAwlHB1OJZipTnyGrQoyJ 93Oyc+DNRpfInuh2WyPxz cn2iuz1tzmGh2 KdXtNQKlwkItzVbyFKJ5w 7PvHg71C93aLXtsPHHzXR QkCJLaTGRnbVyicb9nrZ8 wIi8+PGNvbCB3 iOR9pK3xXUQzSjP4ZLarT 513JfCndWRtGxfgh7uci1 eqtYm6FlDoDNDotrWzqJq qSVJ7f2JeEn22 O63bXEinFLEiGARrITQwZ DNhkUxhdh1hqB3fHh5+PC 4au0hsrd15qU54iGZ+PHR vDRK4cEwcGJex GKOhjT9rGNpjHvL9RLWhT iXmaV73jUJhNFwlFv7lsF apiCnhGI0dAFNtfaevw08 0HbQjt3znHAMr bVGnZSqgUDJ4D85lb8R2P XCgEJFgQHO7iVM7fP0imP lnbjogbGVmdDsgdmVydGl wJMdkLNteL979 IHRvcDsnPlBhdGllbnQgT pGhQJa9C0TjNxi4UWUtuY zfPO6ldKVoNSaeLz5bmDr ieDusAL6yCLIf [id number] GXiZEreMXM6K60qb3X4JE GkOPCiNXS5rVT2oT7hbMj nbjogbGVmdDsg zdItjJtjTSxoNHqoS484Y HRvcDsnPkJpcnRoIERhdG R2EZ45ZC07dNWoc6M9tBK 0K9FqIRGzgvvf csbvtVW0BSRvWKHcjK40Q w6frAfnRo5oMLDiWBQ6UI WztXWaF5IwdE2xExZmXUD zKXXgJ1BujTUp NBbbO910QPozZxA0PQBdn fDyJ0YmUWQkqIyxJxC9z9 B8Lj2XL7T8IJ34UY95mHB no7Y4nTN8A6Nd MQTrjdmutnwleMR6SLTdB PNurI18Zs0kbEhnCp3rFL HxXZB9OGIglDNiP3DumT5 yOiAjMDAwMDAw X8MzfWAgINqfG050LYbwN rQ2SEAcwfCjK0SoCDIyhB epQiV0z3P6Zl9DEZn4DC1 2ZQ71zAFwr6Q4 iWG6M2GsBFCdibjugujvw GH9DCBmUHWbvA75Ou4kvE ptOf7hDTLfDTT5GINmzOO eG9JavM7eXoOm TEByUGUfW9OizTBjCOozF 057ZKwaSkG8PFBtmxSxX2 SySRJieCimRnL0p0O5Gh4 HBEDoIG83WVE7 jAX0CD46JP43M1CnPmgrs GFibGU+PHRhYmxlIHdpZH RoPScxMDAlJyBzdHlsZT0 hLw4uBSQbAZPt lSxouCTwIgEis8maRBLwS GtuMM8dhDupH7WowRO1XW Ntf5j2Uy41I20eT5SusOJ +FECutXS3aLF1 lD2aVhIbDvH5GLcmV502Q lHcxKJgQnugh9asq9ybgJ w1EjG9RBQboaYoxJprKSZ 7u2FkZb50C54h IHdpZHRoPSIxNSUiIHZhb Oxphb5haD5vCw9+PGNvbC T7pKA0cU8sJwWrEoL4XZq iE074BdNvjBIu Grvqu9cth0sjwBb1YzNaO TGldpEmlDhgDRW5b4TiYl 40D6KwhNfph2JsHpx2xg3 2dEGzz0T2eQP8 Y6OiLQZhhcbecREtrNboF M0yIKAnmdosRFUzbS1nVJ VeX1w6UcXqUdV1TGflT8O ipwR2GZKumVGd MGycRBH0F52ft3O3YGSfA DEdWBA5dFH9vU5dyQuimj ogbGVmdDsgdmVydGljYWw mPYxkD642HIQm lKykRCPosT0xBVOauMBxk EdkJD4rAFTqrdmkXpGYDB EGGCPIGQ3PYXOWSL64KT7 1zVMqu2S8xRM7 L7QyKZUuxtyjommewIN2H VXpADGsiT01pKQsHVtsFv 3bv0D8b667ITXtDRExqL0 9Nz8alPuxAZVu vVKYvY2injilc6gnthxlV kPjYYPfHFc1IBh9ZEKkyB gfAgWyQUI6XnL8UMB3rBM iqS1erDehplag rB0jMvm+CWMtBqMmVTd8O DwvdGQ+EJSoHGH4cBlzVQ aqSXSvvN4lICDtR4a8YnR tIhI2BAkgO6Ir RSTurituMf88iW7eNsOzV iU4OZmgJ9MlhyM8NXAzzH SiFCjxEBA9T24jj1F7RYK gRYKaMTS2hMT6 fF6ouZbwmzrnmIOphUkem kUezFgnEIebGZtjH614NS RvcDsnPjgyIFllYXJzPC9 0CY00oEOtz8Z4 uWZ3L0PvJXHhaijvlqkfs OW2CPZmCPPvvM39zZImXM usCt8pi2V7c462YYFhGEC ngU68Ba2ksTrm KFUlcPGKqX5twutbs2bui yvkNnYqCUOwUXv3SUj3AQ DnkVupMrGzJJY2PnY7NBB 4xKPoiD8niLxl sbiykT8yQsr+RmVtYWxlP D89UY82bHBys1Y6lOU0I7 JgXRBdhdwbrjgibLT6RFA cJCRnxR54yGSa IVefZx2vi6F3v465UKKcZ SZtaA17Zq4vyNkfBJFiiV UHfE4utmcxo2puomcxLmA eIZDnWTb5JDq4 MJZqeDsmYsZaCJT2DiJ4J VE7lQZqhG2zgEdleqojiW 9wOyc+NDYltxLGQI8rU3O wNA03AO74JJ09 A8GmChuudGRemJE+PHRhY mxlIHdpZHRoPScxMDAlJy AfmTshSS0nOa8oBGZkCQK vbGxhcHNlOiBj d9krQOKnIZymCB0csLnpE 6AdeCP7OOBlk6c2Vb17B9 1eD8BniXH+IYAacVO0vFQ 8xO0kYqKtBzQ2 KWnrO863OoPomLAoZrmvg 4ypj1usmAg1AtHmPGMohc NtsZkyHEC9k0MaAw54F46 sIHdpZHRoPSIy QDDdPAAmyCtcme3uhY1iL i8+DVRxsOB4gQN4aN8jWy HyInW4WSxhP852BgTpmGW hUtemC69vO4Dj dXA+OTPdAsm1ITTqhTieZ E6hwPQtSPccNj0vPYG0By LfVkKpFRtrT6NgVPUjfte kuxkrjEN5GXIp WIFtzW19As5jvFysUn7sF OApXPY7ENPyoNFhR6PjlL 7tThWlUIHnRHGpL7IeiGT wINmsV046VIzu QcR0PQKetaWzQ7GqIZLxp TtdXgW6z0M1Mn6HlYylvY EhTY4hCiPsYRi6U3MeLse 9PEOpsDktGS3f jHDhURpoLa2mgAbylQblU O7dNTUmtztyx908VqTad4 zlKPKykINkUDdwLDM8T69 bz5T7UZSiKKRb ZAX6uNT9qQ7eoVpvahros GVmdDsgdmVydGljYWwtYW ckG449OJBjqJeuSyORZjq 4B8CkUfy7QUFa lQcbSD9xhJCxIWebTi6um GgykKlyIT2wAZJtacykb8 23TbSjc0kwHIPobUFeJSi nDRY7D89ph2V7 WZVsECMaDCT6pCB2hH9io GlnbjogbGVmdDsgdmVydG xbWEgtXAmfJ220ZFSowZt oOz5XQgv8I2Ay Xic6QWLjwClbFI4ruLIcR IwiBl0rjWyuqRzkSS8aQL Ueqdzcw892NmHep4zwZPL wcHQgVGltZXM7 D31lt2U0ZMHzBLPwUIL7u TY0fN1eiSaiepdliZAxfC extsIeiXykJMjcLHavR08 6IHRvcDsnPlBh eWVyOjwvdGQ+PT25wv85X 6CbOgyqIoj5EAJhEAP7aE H7gL6kWKUtSBtjd1M2rYB 5G7PaknEtoh8m b2xs (more content not included)... Normal [facility] Consent for Treatmenton Consent for Treatment [id number] [facility] [id number]# 1.00CD:127 Normal [facility] Office/Clinic Note-Physician on 02-21-2022 Office/Clinic Note-Physician [id number]# 1.00CD:127 Normal [facility] Patient Correspondenceon Patient Correspondence [id number]# 1.00CD:127 Normal [facility] Patient History Officeon Patient History Office [id number]# 1.00CD:127 Normal [facility] Referrals Officeon Referrals Office [id number] 0 [id number]# 1.00CD:127 [facility] Radiology Outside Office Fire Control Assistant yon 02-11-2022 Radiology Outside Office Copy [id number]#1 .00CD:127 [facility] Radiology Outside Office Copy [id number]#1 .00CD:127 Normal [facility] Laboratory Outside Office Co pyon 01-08-2022 Laboratory Outside Office Copy [id number]#1 .00CD:127 [facility] Coding Summary.on 01-02-2022 Coding Summary. CD:[id number] G h0bWw+PGhlYWQ+GC1DFAH zZ63fmHHlyY7XA8cEUM8E DQKIDSKVEA4EDS6lmBC6D LlbU4CuvbCb PdtdwJYoWJ91YCz7YMN9u RifCFvnsW9zsNHsO4e4Vd VkXQ55vL64OIciRWIzXkX 3LjZpbjsgbWFy U8tpTrWzkOZgIws+PHRhY mxlIHdpZHRoPScxMDAlJy KzvQmpWO9hZh1cXDJyTJV vbGxhcHNlOiBj s7ykFGRqXMqpEK7qqJkqG 1QssDP4NRYxf1l7Yb63hA I+DASgFAK5aJomKLsej92 7ZcBgc6qyIWY6 fYFlZBjzIYC4N61in7T4O GIhNKSuOFB6rTE4eL9khF wxnytsM0YabLMuKyQ0MFZ 6dHXptS5fjKuc eesypW2gMbp+A97EPD1YD EREEJ2HIte6W8UoOqcrfW I+KZ33WSZcBY70jHFbnDW qe1ndjIv4FmNl UDSgARO1fFtiNQnxn1XmY PRnE40tdREvf8S9HYGqwU fxaANmVzTcfBS0vJ4oELj rhrkpw9fjcrbn Jukbv5xvbk32jF07E08pV SpgUSIhCIP5SRHjAYNwfC vvyj3nzD6tGr7+DPaiy3z iq5pkaOh0OxLz JDRlxeUsySvxURW9z6QzV h43I2XloHsbv4KeLbr2ry 44aEHfp7M0dNE8QDdpDTL kvF3qYTzwYcV3 QVIfHzAhqM54bTLzYHlwB g7vbPjqzTryWU9gXQEbwj cuEHRasX4qLKQxzJJgqNi rJJ2jMIAvqtqu r645YyThFQZ6BTArmMRlE 2QxcL8uLeWrBPNbWLMeW6 IatQBrDYhaU805YGaqHwI 3DGPkhpRqB3Sg PIHwfChbOxQ3q6G7Zg8Mw 1XxaxywTWN0UDkxLAKyJd V9JfFgVfV1W3RrSki2NRI lmPeaXT4fJ4Ea FGOlnbnklokjrUW6YHUxU FIgtP66hFBjUTvyRk4lc1 A4h479ODVbARGaaB29Vv9 udDogMTBwdCBU bI4hpdxus9fzniseHlWcO TCvNBe8UZl0ZIXhtTlvMa PuIVO1GoH5STS6fTSnhN9 meEspsoswfB7g Oyc+P09psB5wATO9HBO4w tcpCPFotaWhIV12QM85T3 RyPjwvdGFibGU+PGRpdiB rfFgzUC0nIaVk q9uys8NtIVqyS9MwBIPvN BtvBwe5XQMpCFV6mBG3zD 8sNNQeRBjvf9B5jFI1I7T ieuDioy8xv8io KVYzVZcdV74zfHIbt7S7Y KCesTS9WAZvcFyuUlXorE 93Oyc+PQUntVrty5PtLsg nh9ynf7ytfSd7 QcDvQGTclvFnlCwiOYG1h 3MpKj40S44mGGswNFCxQI VrNTRbGGJnrEsaez4gqJ3 wIi8+PGNvbCB3 jUB3vV0xSDHrWaN7GJytT 613FmLvlOQkQxaep4hwh3 jzkUy2SzBcLLIlxxYkcOa rVBO4h6CiDr02 U78jONylSQAiNTZsVDZyL XPkmEcrkd7vmB9oXf1+PC 1sw6puwj01tV85gEV+PHR oYNF3tEpgEMrt BYMgiA0kMFegNdR9NGLxN iRubH03yZQmIHdbYl9mlB vpcEnoIN0vTFMtisuux08 3PbXba6aaCESm bUAdQXoeMQO0N81st1N0W VXbJCIsZZM7gUD9yL3jmG lnbjogbGVmdDsgdmVydGl uOYolXKmxM413 IHRvcDsnPlBhdGllbnQgT gDeFPp4C3AiGhr1DGVfgW ncXT8ykWKkQFqxEe8dxKf zwYdvTV9mTOKq hzvnb008MfBdj6lhRZUxy RUaJYedZHR3E19sd8P8WB OoSJVsVNT9qFS9yF2hvHa nbjogbGVmdDsg naAinGidWMzqRYbqZ813D HRvcDsnPkJpcnRoIERhdG D7HU46ZJ82mCNyo3O1sTC 8A2EbEBSrpgpx niwjgKZ4NALwUIAzxG90A f9qeAwpBy2rFKZxJNI5ZY KkgGQdQ5IeeW5eXeBtHXC fDLZsS2IulBSa AVybG660ICxwTnD7RCXzi gWhV2IjUVPrwBudIiT7u2 Q6Xb6TR0V1FD42AN18pTH ak8Y4sOI1G7Qo IUXuvuhgznlfkAV3PUTjI FThxR23Jh1zzMwyQy1mBR UrOEX0VIDkxAFzA4RrcU0 yOiAjMDAwMDAw H0ZkkEUrVCgkA153OHrtA nS4WGGnbnFyY9YzKXGtwI jnHlZ0l8Z2Et4GEYo7JC6 9VX30oXZbi0R1 qCP4P8TkXAKqesdvgelry IM5HOPpCFHfuM50Qf9pyN rkTx0mYNLhHIE3ESTytIB vU2WoeD8oIfYr PBZpVCHvG4EqoULzRNqpH 133DDpqLqP2JUCwipWgA7 PgGLBnkMzrNfN0o2B7Sr6 KNAQfHP26JZS9 bQK5RR69CI96F1RiYdrlb GFibGU+PHRhYmxlIHdpZH RoPScxMDAlJyBzdHlsZT0 vHi5uEEByHZDl xZxhtWFeNuMkl8qrVLWhN FunRQ4bcBpbI6NdnLK3LL Fbf3a2Jr80K23wL2GvvNL +IFDhwHU2uHD6 lV0cEqKlEyE7EDmnF259S cTukYFyIojsr5kyh8nqfW c3ApS9JOHimkKztVnqTXY 2k1VdSy84I66b IHdpZHRoPSIxNSUiIHZhb Vtgoe6kuA3mRb8+PGNvbC R6qVX8oS8nVwCaNwH2FGc vG171CrBlkUDc Ejoqg6cwx5eskPr3LhItD KMepiQjsKgnEGN3v0YvMa 34J1OcmWcyj5QuMqj4vk2 5yQStk2N8jGD3 X4VgKYRvpcnzuTIfjJycB O5bWLNcbypuNEZpnM0mEC PgU0r3UjKkWoU1ZExoK4B tamW9ABXprCZj CBqjMSU3U75qj3K4VUGfM VOuBIC9xHF0qD2zdGilcp ogbGVmdDsgdmVydGljYWw mGClcD625WQEm eCpjQPQcnQ4pYYQvyWZaf PrwLF2wIOXdmolmUiLIUU AOBPOVXQ1DAIUMXJ62JR8 9yPTyl0U8dDZ5 A7OjMGPdvdstwtlkhNE5R NJjNHCylY13hEMmVTctGy 1ly6M0j426LLHhSYRfjG7 4Oq8eaHnqWBDr tIBGrR3ootlll3kbxwtnQ hQhMNBhOBe4KKb1TPIkwR kzLuYfQTA9PbJ8SDH5lTV qgP5iwKbglzom rC4cCwd+BANgItYlYIo2F DwvdGQ+GGCxQQJ3rDhuVK kcZYMduM8uGPBeM9x1LnN aCtB7BBldO3Go XVEgbsmxKh40xB9yBmKmA tL4TDhvJ4SzjvR8VUKckD JwNJdrBLG9F08mu8Y3KET tCRUuPGG0nHX0 vJ0hlGdrzqrikSCkqJhcf bGlhLduXPphCMyyD697IY RvcDsnPjgxIFllYXJzPC9 8ZR42pVRxh4Z6 vGM0P6MrAAKapkemswztz NC0YPAnESKamG82gDPrBE zjZv3ip6N9m715URJyIMS buM47Jp9zrQtt IYUniEOLoB9roqtgz4gho aokZvItQUNmGPe0JDc4ID FrlDipWkUzVXP3YcE4XXP 6iPYcpS0grHsj dhpsuI4mUqt+RmVtYWxlP L35FJ32bGWpt1D1vNC8S5 LpKUUuyukmdeyctEO4NIE yEINiaO25jUIi LHdcWn3lp5A2k409UTAoX GBnxA11Ed0zdFmvLDTkjL DGaM7xeeunt0zapeihXzN vXACxWRw0ZUb3 BGFfzNnaOwPyFPI9VoJ1A KM5uKFafY4piWyyvdvttK 9wOyc+LWUtcpFGOW7dY2L gBR58FZ40TQ55 R0CuCizdlYZzoIR+PHRhY mxlIHdpZHRoPScxMDAlJy JptJjcJL2yEf0xDRKdXYH vbGxhcHNlOiBj x3fgXVHbPNzkEU8hyPeqR 9SkwOU8MKQaf4u1Nh16T6 9dL6ZbxWV+DWWvkBD1bMQ 6dF7xEqZyFmS8 HSzgN508CgRmqCHlHolsd 2dqo3qpsHb0JzHrIETvrh GvuWkyOTG6b4QcRh63N76 sIHdpZHRoPSIy SKFfXDHfhIjsdv6tcC8bF i8+VOSmeYJ7nQB2tD9rTc OoHcD6KMrqU011PmHckKG qPgqeR60jT7Bx dXA+BLSbBwi6GIWzpSomT V6tbHPwSPpaTl7cYWB1Ta XyLwNbBPhxN5IsJXMgrqm tnzkaeMW5DFUi UUEeuZ42Mi2ulNmiGo2oQ VIhEAI5MMCsbGWaX6JhfH 3kPcRiOJFyQOScQ4AbhXN kDOouJ464IKzd JxW9XZBqhaEwH6WuZARrt RxbDqQ4x8R2Ne9BtDqhvK ZgYB5hXrKdAIb9K4NiTfu 4LNFndHlhQH4c gMRnJVvnUk8lrTareCdnR O6bYZZbgyjpj708BmJyw7 eeEWMjgRGrWYncDNF7D31 dv1Z3EFQbRTEg WPN1zEK6hN4rvLgadqgyl GVmdDsgdmVydGljYWwtYW ehP483WAZtqRtyPnTXVye 7H4AoQsz2WOZx lIokKB9dsWLgDLudFm9lp UhhyNfyAC2hPJDsuhbkv3 70ChKpr0ggAHLpbAXwAHw jDJP7I12vw6C5 ISUeGSBiUZE9vDY2aL7je GlnbjogbGVmdDsgdmVydG fvIAcvOHbwZ230XJWrrBo lAv5VIco9Y0Ew Odm2KYMztGzqKE1ihJUnR OuvSj2bdYzdjEuoQC3bON Aklfmhb833YcUxl8kfUFS wcHQgVGltZXM7 O91bo5F5KJQsDTTmJVJ5w WA9yI2kaEvjoxnyzPZofY apnkSosLokLDwyJMfjV80 6IHRvcDsnPlBh eWVyOjwvdGQ+SM22dh34U 0WoCtkyXzl2XHBmZJB3jV Y3aV8eVLOgCJanr1U6dBK 6I1BcwrJpsf3q b2xs (more content not included)... Normal [facility] Vital Signs Date Time Vital Sign Value Performing Clinician Facility 11-27-2023 11:07-0500 Body height 160 cm Christopher Bohach DPM Work Phone: [facility] 11-27-2023 11:07-0500 Body mass index (BMI) [Ratio] 28.34 kg/m2 Christopher Bohach DPM Work Phone: [facility] 11-27-2023 11:07-0500 Body weight 72.58 kg Christopher Bohach DPM Work Phone: [facility] 11-27-2023 11:07-0500 Diastolic blood pressure 77 mm[Hg] Christopher Bohach DPM Work Phone: [facility] 11-27-2023 11:07-0500 Heart rate 71 /min Christopher Bohach DPM Work Phone: [facility] 11-27-2023 11:07-0500 Respiratory rate 18 /min Christopher Bohach DPM Work Phone: [facility] 11-27-2023 11:07-0500 Systolic blood pressure 133 mm[Hg] Christopher Bohach DPM Work Phone: [facility] 06-18-2023 10:30-0400 Body height 160.02 cm Alex Ball Other [facility] Other 06-18-2023 10:30-0400 Body mass index (BMI) [Ratio] 27.28 kg/m2 Alex Ball Other [facility] Other 06-18-2023 10:30-0400 Body weight 69.85 kg Alex Ball Other [facility] Other 06-18-2023 10:30-0400 Diastolic blood pressure 79 mm[Hg] Alex Ball Other [facility] Other 06-18-2023 10:30-0400 Respiratory rate 12 /min Alex Ball Other [facility] Other 06-18-2023 10:30-0400 Systolic blood pressure 133 mm[Hg] Alex Lloyd Other [facility] Other 05-29-2023 10:20-0400 Body height 160.02 cm Mir Dolores Other [facility] Other 05-29-2023 10:20-0400 Body mass index (BMI) [Ratio] 28.34 kg/m2 Mir Dolores Other [facility] Other 05-29-2023 10:20-0400 Body temperature 96.1 [degF] Mir Dolores Other [facility] Other 05-29-2023 10:20-0400 Body weight 72.58 kg Mir Dolores Other [facility] Other 05-29-2023 10:20-0400 Diastolic blood pressure 71 mm[Hg] Mir Dolores Other [facility] Other 05-29-2023 10:20-0400 Respiratory rate 16 /min Mir Dolores Other [facility] Other 05-29-2023 10:20-0400 SaO2% (BldA) [Mass fraction] 98 % Mir Dolores Other [facility] Other 05-29-2023 10:20-0400 Systolic blood pressure 119 mm[Hg] Mir Dolores Other [facility] Other 05-01-2023 14:23-0400 Body height 152.4 cm Atif Yousif MD Work Phone: [facility] 05-01-2023 14:23-0400 Body temperature 97.11 [degF] Atif Yousif MD Work Phone: [facility] 05-01-2023 14:23-0400 Diastolic blood pressure 70 mm[Hg] Atif Yousif MD Work Phone: [facility] 05-01-2023 14:23-0400 Heart rate 84 /min Atif Yousif MD Work Phone: [facility] 05-01-2023 14:23-0400 Respiratory rate 16 /min Atif Yousif MD Work Phone: [facility] 05-01-2023 14:23-0400 SaO2% (BldA) [Mass fraction] 94 % Atif Yousif MD Work Phone: [facility] 05-01-2023 14:23-0400 Systolic blood pressure 143 mm[Hg] Atif Yousif MD Work Phone: [facility] 03-18-2023 10:30-0400 Body height 160.02 cm Alex Ball Other [facility] Other 03-18-2023 10:30-0400 Body mass index (BMI) [Ratio] 27.54 kg/m2 Alex Ball Other [facility] Other 03-18-2023 10:30-0400 Body weight 70.53 kg Alex Ball Other [facility] Other 03-18-2023 10:30-0400 Diastolic blood pressure 86 mm[Hg] Alex Ball Other [facility] Other 03-18-2023 10:30-0400 Respiratory rate 12 /min Alex Ball Other [facility] Other 03-18-2023 10:30-0400 Systolic blood pressure 142 mm[Hg] Alex Ball Other [facility] Other 02-17-2023 14:00-0400 Body height 160.02 cm Alex Ball Other [facility] Other 02-17-2023 14:00-0400 Body mass index (BMI) [Ratio] 27.54 kg/m2 Alex Ball Other [facility] Other 02-17-2023 14:00-0400 Body weight 70.53 kg Alex Press Other [facility] Other 02-06-2023 09:29-0400 Body height 152.4 cm Atif Yousif MD Work Phone: [facility] 02-06-2023 09:29-0400 Body temperature 97.59 [degF] Atif Yousif MD Work Phone: [facility] 02-06-2023 09:29-0400 Diastolic blood pressure 90 mm[Hg] Atif Yousif MD Work Phone: [facility] 02-06-2023 09:29-0400 Heart rate 77 /min Atif Yousif MD Work Phone: [facility] 02-06-2023 09:29-0400 Respiratory rate 16 /min Atif Yousif MD Work Phone: [facility] 02-06-2023 09:29-0400 SaO2% (BldA) [Mass fraction] 99 % Atif Yousif MD Work Phone: [facility] 02-06-2023 09:29-0400 Systolic blood pressure 129 mm[Hg] Atif Yousif MD Work Phone: [facility] 12-26-2022 14:06-0500 Diastolic blood pressure 86 mm[Hg] [facility] 12-26-2022 14:06-0500 Heart rate 73 /min [facility] 12-26-2022 14:06-0500 Mean blood pressure 104 mm[Hg] [facility] 12-26-2022 14:06-0500 Respiratory rate 16 /min [facility] 12-26-2022 14:06-0500 Systolic blood pressure 139 mm[Hg] [facility] 12-25-2022 09:42-0500 Diastolic blood pressure 84 mm[Hg] [facility] [place] Work Phone: [facility] 12-25-2022 09:42-0500 Heart rate 69 /min [facility] [place] Work Phone: [facility] 12-25-2022 09:42-0500 Respiratory rate 18 /min [facility] [place] Work Phone: [facility] 12-25-2022 09:42-0500 SaO2% (BldA) [Mass fraction] 97 % [facility] Work Phone: [facility] 12-25-2022 09:42-0500 Systolic blood pressure 146 mm[Hg] [facility] [place] Work Phone: [facility] 12-16-2022 10:00-0500 Body height 160.02 cm Alex Ball Other [facility] Other 12-16-2022 10:00-0500 Body mass index (BMI) [Ratio] 28.34 kg/m2 Alex Ball Other [facility] Other 12-16-2022 10:00-0500 Body weight 72.58 kg Alex Ball Other [facility] Other 12-16-2022 10:00-0500 Diastolic blood pressure 72 mm[Hg] Alex Ball Other [facility] Other 12-16-2022 10:00-0500 Respiratory rate 12 /min Alex Ball Other [facility] Other 12-16-2022 10:00-0500 Systolic blood pressure 118 mm[Hg] Alex Ball Other [facility] Other 11-27-2022 10:20-0500 Body height 160.02 cm Mir Dolores Other [facility] Other 11-27-2022 10:20-0500 Body mass index (BMI) [Ratio] 28.34 kg/m2 Mir Dolores Other [facility] Other 11-27-2022 10:20-0500 Body temperature 96.4 [degF] Mir Dolores Other [facility] Other 11-27-2022 10:20-0500 Body weight 72.58 kg Mir Dolores Other [facility] Other 11-27-2022 10:20-0500 Diastolic blood pressure 78 mm[Hg] Mir Dolores Other [facility] Other 11-27-2022 10:20-0500 Respiratory rate 18 /min Mir Dolores Other [facility] Other 11-27-2022 10:20-0500 SaO2% (BldA) [Mass fraction] 97 % Mir Dolores Other [facility] Other 02-08-2023 10:20-0500 Systolic blood pressure 123 mm[Hg] Mir Amin Other [facility] [place] Other 11-11-2022 14:26-0500 Body height 152.4 cm Atif Yousif MD Work Phone: [facility] 11-11-2022 14:26-0500 Body temperature 97.39 [degF] Atif Yousif MD Work Phone: [facility] 11-11-2022 14:26-0500 Body weight 69.85 kg Atif Yousif MD Work Phone: [facility] 11-11-2022 14:26-0500 Diastolic blood pressure 77 mm[Hg] Atif Yousif MD Work Phone: [facility] 11-11-2022 14:26-0500 Heart rate 84 /min Atif Yousif MD Work Phone: [facility] 11-11-2022 14:26-0500 Respiratory rate 16 /min Atif Yousif MD Work Phone: [facility] 11-11-2022 14:26-0500 SaO2% (BldA) [Mass fraction] 94 % Atif Yousif MD Work Phone: [facility] 11-11-2022 14:26-0500 Systolic blood pressure 124 mm[Hg] Atif Yousif MD Work Phone: [facility] 10-10-2022 10:31-0500 Diastolic blood pressure 91 mm[Hg] [facility] 10-10-2022 10:31-0500 Heart rate 77 /min [facility] 10-10-2022 10:31-0500 Mean blood pressure 109 mm[Hg] [facility] 10-10-2022 10:31-0500 Respiratory rate 12 /min [facility] 10-10-2022 10:31-0500 Systolic blood pressure 144 mm[Hg] [facility] 09-16-2022 14:50-0500 Body height 152.4 cm Maranda Hope REVERSER.CLINICAL SPECIALTY REP Work Phone: [facility] 09-16-2022 14:50-0500 Body temperature 97.39 [degF] Maranda Hope REVERSER.CLINICAL SPECIALTY REP Work Phone: [facility] 09-16-2022 14:50-0500 Body weight 72.58 kg Maranda Hope APRN.CLINICAL SPECIALTY REP Work Phone: [facility] 09-16-2022 14:50-0500 Diastolic blood pressure 69 mm[Hg] Maranda Hope REVERSER.CLINICAL SPECIALTY REP Work Phone: [facility] 09-16-2022 14:50-0500 Heart rate 67 /min Maranda Hope APRN.CLINICAL SPECIALTY REP Work Phone: [facility] 09-16-2022 14:50-0500 Respiratory rate 16 /min Maranda Hope APRN.CLINICAL SPECIALTY REP Work Phone: [facility] 09-16-2022 14:50-0500 SaO2% (BldA) [Mass fraction] 98 % Maranda Hope APRN.CLINICAL SPECIALTY REP Work Phone: [facility] 09-16-2022 14:50-0500 Systolic blood pressure 137 mm[Hg] Maranda Hope REVERSER.CLINICAL SPECIALTY REP Work Phone: [facility] 07-08-2022 10:03-0400 Body height 152.4 cm Atif Yousif MD Work Phone: [facility] 07-08-2022 10:03-0400 Body temperature 97.2 [degF] Atif Yousif MD Work Phone: [facility] 07-08-2022 10:03-0400 Diastolic blood pressure 86 mm[Hg] Atif Yousif MD Work Phone: [facility] 07-08-2022 10:03-0400 Heart rate 73 /min Atif Yousif MD Work Phone: [facility] 07-08-2022 10:03-0400 Respiratory rate 16 /min Atif Yousif MD Work Phone: [facility] 07-08-2022 10:03-0400 SaO2% (BldA) [Mass fraction] 97 % Atif Yousif MD Work Phone: [facility] 07-08-2022 10:03-0400 Systolic blood pressure 145 mm[Hg] Atif Yousif MD Work Phone: [facility] 06-20-2022 14:07-0400 Diastolic blood pressure 81 mm[Hg] [facility] 06-20-2022 14:07-0400 Heart rate 74 /min [facility] 06-20-2022 14:07-0400 Mean blood pressure 104 mm[Hg] [facility] 06-20-2022 14:07-0400 Respiratory rate 18 /min [facility] 06-20-2022 14:07-0400 Systolic blood pressure 150 mm[Hg] [facility] 05-21-2022 11:00-0400 Body height 160.02 cm Mir Dolores Other [facility] Other 05-21-2022 11:00-0400 Body mass index (BMI) [Ratio] 28.34 kg/m2 Mir Dolores Other [facility] Other 05-21-2022 11:00-0400 Body temperature 96.1 [degF] Mir Dolores Other [facility] Other 05-21-2022 11:00-0400 Body weight 72.58 kg Mir Dolores Other [facility] Other 05-21-2022 11:00-0400 Diastolic blood pressure 77 mm[Hg] Mir Dolores Other [facility] Other 05-21-2022 11:00-0400 Respiratory rate 18 /min Mir Dolores Other [facility] Other 05-21-2022 11:00-0400 SaO2% (BldA) [Mass fraction] 97 % Mir Dolores Other [facility] Other 05-21-2022 11:00-0400 Systolic blood pressure 128 mm[Hg] Mir Dolores Other [facility] Other 05-02-2022 13:51-0400 Diastolic blood pressure 87 mm[Hg] [facility] 05-02-2022 13:51-0400 Heart rate 71 /min [facility] 05-02-2022 13:51-0400 Mean blood pressure 107 mm[Hg] [facility] 05-02-2022 13:51-0400 Respiratory rate 16 /min [facility] 05-02-2022 13:51-0400 Systolic blood pressure 146 mm[Hg] [facility] 04-15-2022 15:19-0400 Body height 152.4 cm Atif Yousif MD Work Phone: [facility] 04-15-2022 15:19-0400 Body temperature 97.81 [degF] Atif Yousif MD Work Phone: [facility] 04-15-2022 15:19-0400 Body weight 72.12 kg Atif Yousif MD Work Phone: [facility] 04-15-2022 15:19-0400 Diastolic blood pressure 75 mm[Hg] Atif Yousif MD Work Phone: [facility] 04-15-2022 15:19-0400 Heart rate 83 /min Atif Yousif MD Work Phone: [facility] 04-15-2022 15:19-0400 Respiratory rate 16 /min Atif Yousif MD Work Phone: [facility] 04-15-2022 15:19-0400 SaO2% (BldA) [Mass fraction] 93 % Atif Yousif MD Work Phone: [facility] 04-15-2022 15:19-0400 Systolic blood pressure 150 mm[Hg] Atif Yousif MD Work Phone: [facility] 02-28-2022 14:40-0400 Diastolic blood pressure 66 mm[Hg] [facility] [place] Work Phone: [facility] 02-28-2022 14:40-0400 Heart rate 72 /min [facility] Work Phone: [facility] 02-28-2022 14:40-0400 Respiratory rate 18 /min [facility] [place] Work Phone: [facility] 02-28-2022 14:40-0400 Systolic blood pressure 131 mm[Hg] [facility] [place] Work Phone: [facility] 2022 15:36-0400 Body height 152.4 cm Atif Yousif MD Work Phone: [facility] 2022 15:36-0400 Body temperature 98.4 [degF] Atif Yousif MD Work Phone: [facility] 2022 15:36-0400 Diastolic blood pressure 90 mm[Hg] Atif Yousif MD Work Phone: [facility] 2022 15:36-0400 Heart rate 81 /min Atif Yousif MD Work Phone: [facility] 2022 15:36-0400 Respiratory rate 16 /min Atif Yousif MD Work Phone: [facility] 2022 15:36-0400 SaO2% (BldA) [Mass fraction] 96 % Atif Yousif MD Work Phone: [facility] 2022 15:36-0400 Systolic blood pressure 152 mm[Hg] Atif Yousif MD Work Phone: [facility] 01-15-2022 11:00-0400 Body height 160.02 cm Mir Dolores Other [facility] Other 01-15-2022 11:00-0400 Body mass index (BMI) [Ratio] 28.34 kg/m2 Mir Dolores Other [facility] Other 01-15-2022 11:00-0400 Body temperature 96.7 [degF] Mir Dolores Other [facility] Other 01-15-2022 11:00-0400 Body weight 72.58 kg Mir Dolores Other [facility] Other 01-15-2022 11:00-0400 Diastolic blood pressure 80 mm[Hg] Mir Dolores Other [facility] Other 01-15-2022 11:00-0400 Respiratory rate 18 /min Mir Dolores Other [facility] Other 01-15-2022 11:00-0400 SaO2% (BldA) [Mass fraction] 96 % Mir Dolores Other [facility] Other 01-15-2022 11:00-0400 Systolic blood pressure 122 mm[Hg] Mir Dolores Other [facility] Other 10-16-2021 10:20-0500 Body height 160.02 cm Mir Dolores Other [facility] Other 10-16-2021 10:20-0500 Body mass index (BMI) [Ratio] 29.76 kg/m2 Mir Dolores Other [facility] Other 10-16-2021 10:20-0500 Body temperature 97.2 [degF] Mir Dolores Other [facility] Other 10-16-2021 10:20-0500 Body weight 76.2 kg Mir Dolores Other [facility] Other 10-16-2021 10:20-0500 Diastolic blood pressure 74 mm[Hg] Mir Dolores Other [facility] Other 10-16-2021 10:20-0500 Respiratory rate 18 /min Mir Dolores Other [facility] Other 10-16-2021 10:20-0500 SaO2% (BldA) [Mass fraction] 96 % Mir Dolores Other [facility] Other 10-16-2021 10:20-0500 Systolic blood pressure 120 mm[Hg] Mir Amin Other [facility] Other Encounters Encounter Date Encounter Type Care Provider Facility Start: 11-27-2023 Bamboo flowsheet Chantal Carnes DPM Work Phone: [facility] Start: 11-27-2023 Bamboo flowsheet Chantal Carnes DPM Work Phone: [facility] Start: 11-27-2023 End: 11-27-2023 ambulatory CHANTAL CARNES Not Available Start: 11-27-2023 End: 11-27-2023 Patient encounter procedure Chantal Carnes DPM Work Phone: [facility] Comment on above: Idiopathic progressi ve polyneuropathy (Primary Dx); Onychomycosis; Corns and callosities Start: 11-06-2023 End: 11-06-2023 ambulatory Alex Lloyd Other [facility] Other Start: 11-06-2023 Telephone encounter Alex [place] [facility] Start: 08-22-2023 End: 08-22-2023 ambulatory Alex Lloyd Other [facility] Other Start: 08-22-2023 Telephone encounter Alex Gonzalez [facility] Start: 08-21-2023 End: 08-21-2023 ambulatory ATIF YOUSIF Facility:[facility] Start: 08-15-2023 End: 08-15-2023 ambulatory Alex Lloyd Other [facility] Other Start: 08-15-2023 Nursing evaluation o f patient and report Alex COPELAND [facility] Start: 08-05-2023 End: 08-05-2023 ambulatory Alex Lloyd Other [facility] Other Start: 08-05-2023 Telephone encounter Alex Gonzalez [facility] Start: 06-26-2023 End: 06-26-2023 ambulatory ATIF YOUSIF Facility:[facility] Start: 06-26-2023 End: 06-26-2023 ambulatory [facility] [facility] [place] Work Phone: Hematology/Oncology Comment on above: Anemia of chronic re nal failure, stage 3b (HCC) (Primary Dx) Start: 06-20-2023 Telephone encounter Delia Brady RN H ematology/Oncology Comment on above: Orders Start: 06-18-2023 End: 06-18-2023 ambulatory Alex Lloyd Other [facility] Other Start: 06-18-2023 Office outpatient vi sit 25 minutes Alex Lloyd [facility] Start: 06-12-2023 End: 06-12-2023 ambulatory Mir Dolores Other [facility] Other Start: 06-12-2023 Telephone encounter Mir Dolores [facility] Start: 06-09-2023 End: 06-09-2023 ambulatory Alex Lloyd Other [facility] Other Start: 06-09-2023 Telephone encounter Alex [place] [facility] Start: 05-29-2023 End: 05-29-2023 ambulatory Mir Dolores Other [facility] Other Start: 05-29-2023 Office outpatient vi sit 25 minutes Mir Dolores [facility] Start: 05-15-2023 End: 05-15-2023 ambulatory Alex Lloyd Other [facility] Other Start: 05-15-2023 Telephone encounter Alex [place] [facility] Start: 05-02-2023 End: 05-02-2023 ambulatory Alex Lloyd Other [facility] Other Start: 05-02-2023 Telephone encounter Alex MON[place]NA G [facility] Start: 05-01-2023 End: 05-01-2023 ambulatory ATIF YOUSIF Facility:[facility] Start: 05-01-2023 End: 05-01-2023 ambulatory Atif Yousif MD Work Phone: Hematology/Oncology Comment on above: Anemia of chronic re nal failure, stage 3b (HCC) (Primary Dx); Chronic renal impairment, stage 3b (HCC); History of iron deficiency; Primary osteoarthritis involving multiple joints; Essential hypertension Start: 05-01-2023 End: 05-01-2023 Patient encounter procedure Atif Yousif MD Work Phone: [facility] Start: 03-20-2023 End: 03-20-2023 ambulatory [facility] [facility] Work Phone: Hematology/Oncology Comment on above: Anemia of chronic re nal failure, stage 3b (HCC) (Primary Dx) Start: 03-18-2023 End: 03-18-2023 ambulatory Alex Lloyd Other [facility] Other Start: 03-18-2023 Office outpatient vi sit 25 minutes Alex Lloyd [facility] Start: 03-04-2023 End: 03-05-[address] ALEX LLOYD Facility: Start: 02-24-2023 End: 02-24-2023 ambulatory Alex Lloyd Other [facility] Other Start: 02-24-2023 Telephone encounter Alex Gonzalez [facility] Start: 02-17-2023 End: 02-17-2023 ambulatory Alex Lloyd Other [facility] Other Start: 02-17-2023 Office outpatient vi sit 15 minutes Alex Lloyd [facility] Start: 02-17-2023 Telephone encounter [facility] Start: 02-13-2023 End: 02-13-2023 ambulatory Alex Lloyd Other [facility] Other Start: 02-13-2023 Telephone encounter Alex Lloyd [facility] Start: 02-12-2023 End: 02-13-[address] ALEX LLOYD Facility: Start: 02-06-2023 End: 02-06-2023 ambulatory [facility] [facility] Work Phone: Hematology/Oncology Comment on above: Anemia of chronic re nal failure, stage 3b (HCC) (Primary Dx) Anemia of chronic re nal failure, stage 3b (HCC) (Primary Dx); Chronic renal impairment, stage 3b (HCC); History of iron deficiency Start: 02-06-2023 End: 02-06-2023 Patient encounter procedure Atif Yousif MD Work Phone: [facility] Start: 01-31-2023 End: 01-31-2023 ambulatory Alex Lloyd Other [facility] Other Start: 01-31-2023 Telephone encounter Alex Lloyd [facility] Start: 01-27-2023 End: 01-27-2023 ambulatory Mir Dolores Other [facility] Other Start: 01-27-2023 Telephone encounter Mir Amin [facility] Start: 12-26-2022 End: 12-27-2022 ambulatory MD Mikey Holden Facility[place] Start: 12-26-2022 End: 12-26-2022 Pain Management Mikey Holden [facility] Start: 12-25-2022 End: 12-25-2022 ambulatory ATIF YOUSIF Facility:[facility] Start: 12-25-2022 End: 12-25-2022 ambulatory Lab[facility] Work Phone: Hematology/Oncology Comment on above: Anemia of chronic re nal failure, stage 3b (HCC) (Primary Dx) Start: 12-16-2022 End: 12-16-2022 ambulatory Alex Lloyd Other [facility] Other Start: 12-16-2022 Office outpatient vi sit 25 minutes Alex Lloyd [facility] Start: 12-11-2022 End: 12-11-[address] ALEX LLOYD Facility:[facility] Start: 11-27-2022 End: 11-27-2022 ambulatory Mir Dolores Other [facility] Other Start: 11-27-2022 Office outpatient vi sit 25 minutes Mir Dolores [facility] Start: 11-18-2022 End: 11-19-[address] ALEX LLOYD Facility:[facility] Start: 11-11-2022 End: 11-11-2022 ambulatory ATIF YOUSIF Facility:[facility] Start: 11-11-2022 End: 11-11-2022 ambulatory Atif Yousif MD Work Phone: Hematology/Oncology Comment on above: Anemia of chronic re nal failure, stage 3b (HCC) (Primary Dx); Chronic renal impairment, stage 3b (HCC); History of iron deficiency Start: 11-11-2022 End: 11-11-2022 Patient encounter procedure Atif Yousif MD Work Phone: [employer] Start: 10-10-2022 End: 10-11-2022 ambulatory MD Mikey Holden Facility:[facility] Start: 10-10-2022 End: 10-10-2022 Pain Management Mikey Holden [facility] Start: 09-16-2022 End: 09-16-2022 ambulatory ALEX LLOYD Facility:[facility] Start: 09-16-2022 End: 09-16-2022 ambulatory [facility] [facility] Work Phone: Hematology/Oncology Comment on above: Anemia of chronic re nal failure, stage 3b (HCC) (Primary Dx) Anemia of chronic re nal failure, stage 3b (HCC) (Primary Dx); Iron deficiency anemia due to chronic blood loss; Primary osteoarthritis involving multiple joints; Essential hypertension Start: 09-16-2022 End: 09-16-2022 Patient encounter procedure Maranda Hope APRN.CNP Work Phone: [facility] Start: 08-16-2022 Adult health examination Norman Lloyd Other [facility] Other Start: 07-08-2022 End: 07-08-2022 ambulatory Atif Yousif MD Work Phone: Hematology/Oncology Comment on above: Anemia of chronic re nal failure, stage 3b (HCC) (Primary Dx); Chronic renal impairment, stage 3b (HCC); Iron deficiency anemia due to chronic blood loss Start: 07-08-2022 End: 07-08-2022 Patient encounter procedure Atif Yousif MD Work Phone: [facility] Start: 06-20-2022 End: 06-21-2022 ambulatory Mikey Zumbar Facility:[facility] Start: 06-20-2022 End: 06-20-2022 Pain Management Mikey Zumbar [facility] Start: 06-04-2022 End: 06-04-[address] ALEX LLOYD Facility:[facility] Start: 05-21-2022 End: 05-21-2022 ambulatory Mir Dolores Other [facility] Other Start: 05-21-2022 Office outpatient vi sit 15 minutes Mir Dolores [facility] Start: 05-15-2022 End: 05-16-[address] ALEX LLOYD Facility:[facility] Start: 05-15-2022 End: 05-16-[address] ALEX LLOYD Facility:[facility] Start: 05-03-[address] ALEX LLOYD Facili ty:[facility] Start: 05-02-2022 End: 05-03-2022 ambulatory Mikey Zdewayne Facility:[facility] Start: 05-02-2022 End: 05-02-2022 Pain Management Mikey Zumbar [facility] Start: 04-15-2022 End: 04-15-2022 ambulatory [facility] Work Phone: Hematology/Oncology Comment on above: Anemia of chronic re nal failure, stage 3b (HCC) (Primary Dx) Anemia of chronic re nal failure, stage 3b (HCC) (Primary Dx); Chronic renal impairment, stage 3b (HCC); Iron deficiency anemia due to chronic blood loss; Primary osteoarthritis involving multiple joints; Essential hypertension Start: 04-15-2022 End: 04-15-2022 Patient encounter procedure Atif Yousif MD Work Phone: [employer] Start: 04-10-2022 Telephone encounter Atif yee MD Work Phone: Hematology/Oncology Comment on above: Lab Orders Start: 02-28-2022 End: 02-28-2022 ambulatory [facility] [facility] Work Phone: Hematology/Oncology Comment on above: Anemia of chronic re nal failure, stage 3b (HCC) (Primary Dx) Start: 02-21-2022 End: 02-22-2022 ambulatory Mikey Holden Facility:[facility] Start: 2022 End: 2022 ambulatory Atif Yousif MD Work Phone: Hematology/Oncology Comment on above: Anemia of chronic re nal failure, stage 3b (HCC) (Primary Dx); Chronic renal impairment, stage 3b (HCC); Iron deficiency anemia due to chronic blood loss; Primary osteoarthritis involving multiple joints; Essential hypertension Start: 2022 End: 2022 Patient encounter procedure Atif Yousif MD Work Phone: [employer] Start: 01-15-2022 End: 01-15-2022 ambulatory Mir Dolores Other [facility] Other Start: 01-15-2022 Office outpatient vi sit 25 minutes Mir Dolores [facility] Start: 01-15-2022 Telephone encounter Mir Dolores [facility] Start: 12-20-2021 End: 12-20-2021 ambulatory Mir Dolores Other [facility] Other Start: 12-20-2021 Telephone encounter Mir Dolores [facility] Start: 10-16-2021 End: 10-16-2021 ambulatory Mir Dolores Other [place] [employer] Other Start: 10-16-2021 Office outpatient vi sit 25 minutes Mir Dolores [facility] Neph[facility] Procedures Date Procedure Procedure Detail Performing Clinician Start: 09-23-2018 transforaminal epidu ral steroid injection 1 Mikey Holden Comment on above: right L2,3,4 TFESI- 50% relief x 2 days back pain, 100% relief of right leg pain to present Start: 09-03-2017 Right Transformanial epidural steroid injection 2 Mikey [employer] Comment on above: right L3, L4 L5 0% r elief Start: 12-25-2016 Right transforaminal epidural steroid injection L3-L4-L5 3 Mikey [employer] Comment on above: 100% relief from leg pain but still haslow back pain when standing Start: 05-22-2016 Entire piriformis mu scle (body structure) Mikey [employer] Comment on above: right 100% RELIEF Start: 03-13-2016 Selective Nerve Root Block 5 Mikey Holden Comment on above: Right SNRB L3,L4,L5 60 % relief afer 10 days Start: 09-06-2015 Rt. Transforaminal E pidural Steroid Injection 6 Mikey [employer]ayumbar Comment on above: L3, L4, L5--60% reli ef Start: 03-15-2015 Right Transforaminal Epidural Steroid Injection 7 Mikey [employer] Comment on above: L3-L4-L5 Start: 09-09-2014 TRANSFORAMINAL EPIDU RAL STEROID 8 Mikey [employer] Comment on above: RIGHT L3+4+5 TFESI Start: 05-25-2014 Epidural injection o f lumbar spine using fluoroscopic guidance Mikey [employer] Comment on above: L5-S1 RASHAUN Start: 03-02-2014 Injection of sacroil iac joint using fluoroscopic guidance Mikey Holden Comment on above: BILAT [facility]JI Start: 09-08-2013 Epidural injection o f lumbar spine using fluoroscopic guidance Mikey [employer]umbar Comment on above: L5-S1 RASHAUN Start: 09-07-2013 General examination of patient Alex Lloyd Other Start: 06-02-2013 Epidural injection o f lumbar spine using fluoroscopic guidance Mikey Holden Comment on above: L5-S1 RASHAUN Start: 01-27-2013 Injection of steroid into shoulder joint Mikey Holden Comment on above: BILAT Start: 12-23-2012 Local anesthetic sac ral epidural block Mikey Holden Comment on above: W/ CATH Start: 10-28-2012 TRANSFORAMINAL EPIDU RAL STERIOD IN JECTION 15 Mikey Hollowayumbar Comment on above: RIGHT L3+4+5 TFESI Start: 09-16-2012 TRANSFORAMINAL EPIDU RAL STERIOD INJECTION 16 Mikey [employer] Comment on above: RIGHT L3+4+5 TFESI BACK SURGERY 17 Mikey [employer]umb ar Comment on above: 2004 Depression screening Joaquim Lloyd Other Hysterectomy Mikey Holden Total knee replacement Ralph Holden Comment on above: LEFT 11/2010 Plan of Treatment Date Care Activity Detail Author Start: 06-26-2026 DIABETES SCREEN DIABETES SCREEN [facility] Start: 05-01-2026 DIABETES SCREEN [facility] Start: 02-06-2026 [facility]CRE[facility] Start: 11-11-2025 [facility] Start: 09-16-2025 [facility]ABET[facility] SCREEN [facility] Start: 07-08-2025 DIABETES SCREEN DIABETES SCREEN [facility] Start: 04-15-2025 DIABETES SCREEN DIABETES SCREEN [facility] Start: 2025 DIABETES SCREEN DIABETES SCREEN [facility] Start: 02-05-2024 End: 02-05-2024 Patient encounter procedure 02/05/2024 10:30 AM EDT Procedure Visit [facility] [address] [place] [id number] Chantal Carnes, [employer] [address] [place] [address] [facility] Start: 06-20-2023 Influenza vaccination [facility] Start: 05-01-2023 End: 07-01-2023 Ferritin [Mass/volume] in Serum or Plasma [facility] Work Phone: Comment on above: Expected: 05/01/2023 , Expires: 07/01/2023 Start: 05-01-2023 End: 07-01-2023 Iron and Iron binding capacity panel - Serum or Plasma [facility] Work Phone: Comment on above: Expected: 05/01/2023 , Expires: 07/01/2023 Start: 12-17-2022 COVID-19 VACCINE (6 - Moderna series) COVID-19 VACCINE (6 - Moderna series) [facility] Start: 11-11-2022 End: 01-11-2023 CBC W Auto Differential panel - Blood CBC + DIFF Lab Routine Anemia of chronic renal failure, stage 3b (HCC) 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 Essential hypertension Expected: 11/11/2022, Expires: 01/11/2023 [facility] Work Phone: Comment on above: Expected: 11/11/2022 , Expires: 01/11/2023 Start: 11-11-2022 End: 01-11-2023 Comprehensive metabolic 2000 panel - Serum or Plasma COMP METABOLIC PANEL Lab Routine Anemia of chronic renal failure, stage 3b (HCC) 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 Essential hypertension Expected: 11/11/2022, Expires: 01/11/2023 [facility] Work Phone: Comment on above: Expected: 11/11/2022 , Expires: 01/11/2023 Start: 10-20-2022 ADVANCE DIRECTIVE DISCUSSION ADVANCE DIRECTIVE DISCUSSION [facility] Start: 10-20-2022 DEPRESSION ASSESSMENT DEPRESSION ASS ESSMENT [facility] Start: 06-20-2022 Influenza vaccination INFLUENZA (#1) [facility] Start: 04-11-2022 End: 06-11-2022 CBC W Auto Differential panel - Blood CBC + DIFF Lab Routine Iron deficiency Expected: 04/11/2022, Expires: 06/11/2022 [facility] Work Phone: Comment on above: Expected: 04/11/2022 , Expires: 06/11/2022 Start: 04-11-2022 End: 06-11-2022 Comprehensive metabolic 2000 panel - Serum or Plasma COMP METABOLIC PANEL Lab Routine Iron deficiency Expected: 04/11/2022, Expires: 06/11/2022 [facility] Work Phone: Comment on above: Expected: 04/11/2022 , Expires: 06/11/2022 Start: 04-11-2022 End: 06-11-2022 Ferritin [Mass/volume] in Serum or Plasma FERRITIN BLD Lab Routine Iron deficiency Expected: 04/11/2022, Expires: 06/11/2022 [facility] Work Phone: Comment on above: Expected: 04/11/2022 , Expires: 06/11/2022 Start: 04-11-2022 End: 06-11-2022 Iron and Iron binding capacity panel - Serum or Plasma IRON + TIBC Lab Routine Iron deficiency Expected: 04/11/2022, Expires: 06/11/2022 [facility] Work Phone: Comment on above: Expected: 04/11/2022 , Expires: 06/11/2022 Start: 02-28-2022 End: 04-30-2022 CBC W Auto Differential panel - Blood CBC + DIFF Lab Routine Anemia of chronic renal failure, stage 3b (HCC) Expected: 02/28/2022, Expires: 04/30/2022 [facility] Work Phone: Comment on above: Expected: 02/28/2022 , Expires: 04/30/2022 Start: 01-02-2022 COVID-19 VACCINE (4 - Booster for Moderna series) COVID-19 VACCINE (4 - Booster for Moderna series) [facility] Start: 10-20-2021 ADVANCE DIRECTIVE DISCUSSION ADVANCE DIRECTIVE DISCUSSION [facility] Start: 10-20-2021 DEPRESSION ASSESSMENT DEPRESSION ASS ESSMENT [facility] Start: 08-03-2017 Pneumococcal Vaccine : 65+ Years (2 - PCV) Pneumococcal Vaccine: 65+ Years (2 - PCV) [facility] Start: 02-06-2005 BONE DENSITY BONE DENSITY [facility] Start: 2000 HEPATITIS B (1 of 3 - Risk 3-dose series) HEPATITIS B (1 of 3 - Risk 3-dose series) [facility] Start: 02-06-1990 SHINGRIX VACCINE (1 of 2) SHINGRIX VACCINE (1 of 2) [facility] Start: 02-06-1959 HEPATITIS A (1 of 2 - Risk 2-dose series) HEPATITIS A (1 of 2 - Risk 2-dose series) [facility] Start: 02-06-1959 HEPATITIS B (1 of 3 - Risk 3-dose series) HEPATITIS B (1 of 3 - Risk 3-dose series) [facility] Start: 02-06-1959 SHINGRIX VACCINE (1 of 2) SHINGRIX VACCINE (1 of 2) [facility] Start: 02-06-1959 Urine microalbumin profile DTAP,TDAP,TD (1 - Tdap) [facility] Start: 02-06-1958 MMR (1 of 2 - Risk 2-dose series) MMR (1 of 2 - Risk 2-dose series) [facility] Start: 02-06-1950 MENINGOCOCCAL B: Consider based on risk (1 of 4 - Increased Risk Bexsero 2-dose series) MENINGOCOCCAL B: Consider based on risk (1 of 4 - Increased Risk Bexsero 2-dose series) [facility] Start: 02-06-1950 MENINGOCOCCAL B: Consider based on risk (1 of 4 - Increased Risk) MENINGOCOCCAL B: Consider based on risk (1 of 4 - Increased Risk) [facility] Start: 02-06-1941 HEPATITIS A (1 of 2 - Risk 2-dose series) HEPATITIS A (1 of 2 - Risk 2-dose series) [facility] Immunizations Immunization Date Immunization Notes Care Provider Michell houston 08-15-2023 influenza, high dose seasonal, preservative-free Alex Lloyd Other [employer] Other 08-09-2022 influenza (aIIV4) vaccine, age 65+ yr, quadrivalent, PF (FLUAD QUADRIVALENT) [facility] Work Phone: [facility] 08-09-2022 influenza virus vaccine, split virus (incl. purified surface antigen) Alex Lloyd Other [facility] Other 03-08-2022 SARS-CoV-2 (COVID-19 ) mRNA-1273 vaccine Mikey Zumbar [facility] Comment on above: Result Comment: 2021: [id number] 09-04-2021 SARS-CoV-2 (COVID-19 ) mRNA-1273 vaccine Mikey Zumbar [facility] Comment on above: Result Comment: 2021: [id number] 08-16-2021 influenza nasal, unspecified formulation [facility] Work Phone: [facility] 08-16-2021 influenza virus vaccine, unspecified formulation Mikey Zumbar [facility] 08-16-2021 influenza, high dose seasonal, preservative-free Atif Yousif MD Work Phone: [facility] 08-14-2021 influenza virus vaccine, split virus (incl. purified surface antigen) Alex Lloyd Other [facility] Other 12-19-2020 COVID-19 vaccine, fu ll dose (MODERNA) Atif Yousif MD Work Phone: [facility] 11-21-2020 COVID-19 vaccine, fu ll dose (MODERNA) Atif Yousif MD Work Phone: [facility] 08-03-2020 influenza, injectabl e, quadrivalent, preservative free Atif Yousif MD Work Phone: [facility] 07-26-2020 influenza virus vaccine, split virus (incl. purified surface antigen) Alex Lloyd Other [facility] [employer] Other 08-11-2019 influenza, injectabl e, quadrivalent, preservative free Atif Yousif MD Work Phone: [facility] 08-03-2019 influenza virus vaccine, split virus (incl. purified surface antigen) Alex Lloyd Other [facility] [employer] Other 08-18-2018 influenza nasal, unspecified formulation [facility] Work Phone: [facility] 08-18-2018 influenza virus vaccine, unspecified formulation Mikey Holden [facility] 08-18-2018 influenza, injectabl e, quadrivalent, preservative free Atif Yousif MD Work Phone: [facility] 08-04-2018 influenza virus vaccine, split virus (incl. purified surface antigen) Alex Lloyd Other [facility] Other 08-04-2018 Seasonal trivalent influenza vaccine, adjuvanted, preservative free Atif Yousif MD Work Phone: [facility] 08-20-2017 influenza, injectabl e, quadrivalent, preservative free Atif Yousif MD Work Phone: [facility] 08-13-2017 influenza virus vaccine, split virus (incl. purified surface antigen) Alex Lloyd Other [facility] Other 08-13-2017 influenza, high dose seasonal, preservative-free Atif Yousif MD Work Phone: [facility] 08-09-2016 pneumococcal conjuga te vaccine, 13 valent Atif Yousif MD Work Phone: [facility] 08-09-2016 pneumococcal Conjuga te, unspecified formulation; Translations: [Need for prophylactic vaccination against Streptococcus pneumoniae (pneumococcus)] Alex Lloyd Other [employer] [facility] [employer] Other 08-03-2016 pneumococcal polysaccharide vaccine, 23 valent Atif Yousif MD Work Phone: [facility] 08-02-2016 influenza virus vaccine, split virus (incl. purified surface antigen) Alex Lloyd Other [facility] [employer] Other 08-02-2016 influenza, high dose seasonal, preservative-free Atif Yousif MD Work Phone: [facility] 07-20-2016 influenza, injectabl e, quadrivalent, preservative free Atif Yousif MD Work Phone: [facility] 08-17-2015 influenza, high dose seasonal, preservative-free Atif Yousif MD Work Phone: [facility] 08-27-2005 pneumococcal polysaccharide vaccine, 23 valent Alex Lloyd Other [employer] Other Payers Date Payer Category Payer Unknown AARP AARP [id number] 2022-Present [address] [place] [address] [id number] 2021 Private Health Insurance [facility] AARP SUPPLEMENT [id number] 2021-Present [phone] [address] [place] [address] Indemnity [id number] 2015 Private Health Insurance xxx [id number] 2005 Medicare MEDICARE MEDICAR E A AND B [id number] 2005-Present [phone] [address] [address] [place] [address] Medicare [id number] 2005 Medicare [id number] 1959 Medicare [id number] 1959 Private Health Insurance [id number] 1959 Self-pay 1959 Unknown [id number] 1940 Unknown [id number] 1940 Unknown [id number] 1940 Unknown [id number] 1940 Unknown [id number] 1940 Unknown [id number] 1940 Unknown [id number] 1940 Unknown [id number] 1940 Unknown [id number] 1940 Unknown [id number] .593 1940 Unknown [id number] 1940 Unknown [id number] 1940 Unknown [id number] 1940 Unknown [id number] Unknown [id number] Social History Date Type Detail Facility Start: 08-18-2014 End: 06-04-2023 Tobacco smoking status NHIS Never smoked tobacco [facility] Start: 08-18-2014 End: 06-04-2023 Tobacco use and exposure Smokeless tobacco non-user [facility] Start: 2022 End: 02-06-2023 Alcohol intake Current drinker of alcohol (finding) [facility] Start: 08-18-2014 History SDOH Alcohol Comment socially [facility] Start: 1940 Sex Assigned At Not on file [facility] Start: 01-28-2022 End: 09-16-2022 Exposure to SARS-CoV-2 (event) Not sure [facility] Start: 02-06-2023 End: 11-27-2023 Sex Assigned At [facility] Start: 06-08-2015 Tobacco smoking status Ex-smoker (finding) [facility] Comment on above: Quit 50 years ago Start: 02-06-2023 End: 11-27-2023 History of Social function [facility] Adult Depression Screening Assessment 0 [facility] Start: 08-18-2023 End: 11-27-2023 Alcohol intake Lifetime non-drinker (finding) [facility] NEGATED: Highlighted rowStart: NINF History of tobacco use Passive smoker [facility] Medical Equipment Procedure Code Equipment Code Equipment Origin al Text Equipment Identifier Dates Start: 02-17-2023 Functional Status Date Assessment Result Facility 12-26-2022 Functional Status N/A [facility] 10-10-2022 Functional Status N/A [facility] 06-20-2022 Functional Status N/A [facility] 05-02-2022 Functional Status N/A [facility] Clinical Notes 10-16-2021 to 11-27-2023 Chantal Carnes DPM - 11/27/2023 11:00 AM EST Note Date & Type Note Facility 11-27-2023 History of Presen t illness Narrative Subjective Patient ID: Henrietta Magana is a 83 y.o. female who presents for Toenail Care. HPI History of Present Illness Diabetic/Routine Nail Care: Locationnails on bilateral feet. Severity of symptomsmild. Onsetgradual. Statusno change. Contexthard to trim, hard to reach. NAILSthickened, discolored, pain. Relieved bydebridement, filing down nails, clipping nails. History of ulcers/woundsno. PCPDr Ball. Date of Last visit 09-18-23 Aggravated byshoe gear, pressure. tender callus left more than right ROS General: Chillsdenies. Feverdenies. Musculoskeletal: muscle weaknessdenies. Bone/joint symptomsdenies. Peripheral Vascular: Edemadenies. Hx of blood clots in legsdenies. Raynaud'sdenies. Rest pain denies. Ulceration of feetdenies. Varicose veinsdenies. Skin: Hyperpigmentationdenies. Nail changesdenies. Rashdenies. Skin lesion(s)denies. Neurologic: Gait abnormalitydenies. Tingling/Numbnessdenies. Current Medications Current Outpatient Medications: magnesium oxide (Mag-Ox) 400 MG tablet, Take 400 mg by mouth in the morning., Disp: , Rfl: amLODIPine (Norvasc) 5 MG tablet, 1 (one) time each day at the same time., Disp: , Rfl: Calcium Carbonate-Vit D-Min (Calcium 600+D Plus Minerals) 600-400 MG-UNIT tablet, every 12 (twelve) hours., Disp: , Rfl: carvedilol (Coreg) 6.25 MG tablet, take 1 tablet (6.25MG) by oral route 2 times every day with food Oral, Disp: , Rfl: cholecalciferol ( Vitamin D) 25 MCG (1000 UT) capsule, take 1 by Oral route every day Oral, Disp: , Rfl: denosumab (Prolia) 60 MG/ML solution prefilled syringe, Subcutaneous, Disp: , Rfl: famotidine (Pepcid) 20 MG tablet, every 12 (twelve) hours., Disp: , Rfl: fenofibrate (Triglide) 160 MG tablet, 1 (one) time each day at the same time., Disp: , Rfl: gabapentin (Neurontin) 100 MG capsule, every 8 (eight) hours., Disp: , Rfl: [place] 3 340 MG capsule delayed-release, 1 capsule every 12 (twelve) hours., Disp: , Rfl: Allergies Ferrous sulfate, Iron, Iron sucrose, and Sulfanilamide Medical Histories Past Medical History: Diagnosis Date Crohn's disease (CMS/HCC) Gout Hiatal hernia HTN (hypertension) (CMS/HCC) Hyperlipidemia (CMS/HCC) Osteoarthritis Surgical Histories Past Surgical History: Procedure Laterality Date HYSTERECTOMY KNEE SURGERY Bilateral SHOULDER SURGERY Left Hospitalizations Family History Family History Problem Relation Name Age of Onset Stroke Mother Other (htn) Mother Other (htn) Father Objective Foot Exam General Examination: GENERAL EXAMINATIONalert, well hydrated, in no distress , awake, aware of surroundings. Dermatologic: HYPERKERATOSIS: rt sub cun mod, mod left with redness and pain. NAIL PATHOLOGY:digits 1-5 bilateral are intact, red lat 1 left. atrophic skin with neg digital hair and hyperpigmentation, right cun lesion mild redness. Nail Pathology: Left Foot: 1 (great toe)Long, Thick, Crumbly, Deformed, Discolored, Brittle, Dystrophic 5mm POP. 2Long, Thick, Crumbly, Deformed, Discolored, Brittle, Dystrophic 4mm. 3Long, Thick, Crumbly, Deformed, Discolored, Brittle, Dystrophic. 4Long, Thick, . 5Long, Thick, Crumbly, Deformed, Discolored, Brittle, Dystrophic. Nail Pathology: Right Foot: 1 (great toe)Long, Thick, Crumbly, Deformed, Discolored, Brittle, Dystrophic 5mm. 2Long, Thick, Crumbly, Deformed, Discolored, Brittle, Dystrophic 4mm. 3Long, Thick, . 4Long, Thick, Crumbly, Deformed, Discolored, Brittle, Dystrophic. 5Long, Thick, Crumbly, Deformed, Discolored, Brittle, Dystrophic. POP 1. Orthopedic: FOOT MORPHOLOGY:severe valgus ankle right more . DEFORMITIES:bilateral, Hammer toe, digital deformities, 2, 3, 4 , Hallux abductovalgus. MUSCLE STRENGTH5/5 for all pedal groups tested . POP 1 bilat and left callus more than right. Modifier: -Q9, Parastesias. Neurologic: Vibratory sensation, shapr/dull and light touch are decreased to the plantar foot bilateral, 5.07 absent to 2 areas. Vascular: palp DP pulses bilat PT barely and good color and refill digits. mild edema. 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 Author Type: Registered Nurse Type: Progress Notes Filed: 08/21/2023 1:51 PM Note Text: Hgb 12 today. No aranesp required.[facility]11-02-2023 NoteHNO ID: [id number] Author: Atif Yousif MD Service: ? Author Type: Physician Type: Progress Notes Filed: 08/21/2023 5:50 PM Note Text: PATIENT NAME: Henrietta Magana DATE: 08/21/2023 PRIMARY CARE PHYSICIAN: Dr. Alex Lloyd OTHER PHYSICIANS: Dr. Holden (pain management), Dr. Flores, Dr. Amin Portions of this encounter note have been copied from the note from 05/01/2023 and has been updated where appropriate, and reflect my current medical decision making from today. CC: This is an 83 year old female with chronic anemia, seen for scheduled follow-up. INTERIM HISTORY: Since the patient's last visit here she has had no significant medical changes. She remains on a low-carb diet for her recent diagnosis of type 2 diabetes. She denies any evidence of bleeding or bruising. Overall she feels well. MEDICATIONS: HYDROcodone-Acetaminophen (NORCO) 7.5-325 mg per tablet TAKE 1 TABLET BY MOUTH 3 TIMES A DAY NEEDED FOR PAIN calcium carbonate/vitamin D3 (CALCIUM 600 + D ORAL) Take by mouth. famotidine (PEPCID) 20 mg tablet Take by mouth twice daily. amLODIPine (NORVASC) 5 mg tablet fenofibrate (LOFIBRA) 134 mg capsule Take 134 mg by mouth daily at bedtime. [id number]-epa-fish oil 300-1,000 mg cpDR Take by mouth. carvedilol (COREG) 6.25 mg tablet Take 1 tablet by mouth twice daily. gabapentin (NEURONTIN) 100 mg capsule Take 300 mg by mouth three times daily. ALLERGIES: Sulfa (Sulfonamide Antibiotics) and Venofer [Iron Sucrose] PAST MEDICAL HISTORY: PAST MEDICAL HISTORY Diagnosis Date Anemia Arthritis Chronic renal insufficiency Crohn's disease (HCC) Degenerative joint disease GERD (gastroesophageal reflux disease) Hyperlipidemia Hypertension Iron deficiency Osteoarthritis PAST SURGICAL HISTORY: PAST SURGICAL HISTORY Procedure Laterality Date BACK SURGERY HX 2004 Dr. Guillen CATARACT SURGERY, COMPLEX COLONOSCOPY EGD HYSTERECTOMY HX KNEE SURGERY HX 2009 TKR. Left REVIEW OF SYSTEMS: General: No weight loss, malaise or fevers. Increasing fatigue. HEENT: Negative for frequent or significant headaches. No changes in hearing or vision, no nose bleeds or other nasal problems. Respiratory: Negative for cough, wheezing or shortness of breath. Cardiovascular: Negative for chest pain, leg swelling or palpitations. GI: Negative for abdominal discomfort, blood in stools or black stools or change in bowel habits. : No history of dysuria, frequency or incontinence. Musculoskeletal: Positive for joint pain and swelling and muscle pain- chronic. Skin: Negative for lesions, rash, and itching. Hematology/Lymphology: Negative for prolonged bleeding, bruising easily or swollen nodes. Neuro: No history of headaches, syncope, paralysis, seizures or tremors. PHYSICAL EXAM: Vitals: BP 151/74 Pulse 71 Temp 36.5 ?C (97.7 ?F) (Temporal) Resp 16 Wt 69.9 kg (154 lb) SpO2 97% BMI 30.08 kg/m? ECOG 1 Exam limited to gross visualization where appropriate due to COVID-19. Gen.: This is an age-appropriate patient in no acute distress. Head: Appears atraumatic with no visible lesions. Eyes: Pupils equally round and reactive to light, extraocular muscles are intact. Neck: Supple. Mouth: Masked. Respiratory: Appears to be respiring comfortably. Neurologic: Nonfocal to gross visualization. Alert and oriented ?3. Psychiatric: No evidence of inappropriate anxiety or depression. Skin: Visible areas of skin without rash, lesions, wounds or petechiae. LABORATORY DATA: Hemoglobin (g/dL) Date Value 08/21/2023 12.0 12/13/2021 11.6 Hematocrit (%) Date Value 08/21/2023 36.2 12/13/2021 37.0 WBC (k/uL) Date Value 08/21/2023 5.55 12/13/2021 4.90 Platelet Count (k/uL) Date Value 08/21/2023 223 12/13/2021 213 ASSESSMENT/PLAN: 1. 285.9 Anemia (primary diagnosis) Severe anemia initially discovered February 2007 (hemoglobin 6.7). Bone marrow biopsy April 2007 nondiagnostic. Etiology multifactorial - in part due to iron deficiency from GI bleeding, in part due to CRI. Shortly after initial presentation the patient received multiple blood transfusions, iron infusions, and EPO injections with resolution of her anemia. The patient developed recurrent anemia in January 2019 due to an upper GI bleed from peptic ulcer disease. With appropriate management her anemia initially returned to baseline. However, since 2020 her anemia has worsened as a result of chronic renal insufficiency and the patient became symptomatic with severe fatigue. For the treatment of renal failure induced anemia the patient was started on Aranesp 11/29/2021, with plans to give as needed to maintain hemoglobin 10-11. Since starting Aranesp the patient has clinically improved and her CBC has improved significantly. She last received Aranesp 02/06/2023 Her hemoglobin today is >11, therefore she will not receive Aranesp. We will request that her PCP (more content not included)...[place] [id number] History general Narrative - Reported* Type Description Date Medical History ACUTE KIDNEY INJURY Medical History HYPERTENSIVE KIDNEY DISEASE STAGE 3 A CHRONIC KIDNEY DISEASE Medical History ANEMIA Medical History HISTORY OF GASTRIC ULCER Medical History PELVIS FRACTURE Medical History LOW BACK FRACTURES Surgical History ANTON 1971 Surgical History LAMINECTOMY Surgical History FORAMINOTMY L2-5 Surgical History CARARACTS 2009 Surgical History COLONOSCOPY 01/2019 Surgical History LEFT TKA 01/2009 Surgical History EGD 04/2017 Hospitalization History SEE ABOVE Hospitalization History ELEVATED POTASSIUM LEVEL 08/2021 [facility] 10-18-2023 History general Narrative - Reported* Type Description Date Medical History ACUTE KIDNEY INJURY Medical History HYPERTENSIVE KIDNEY DISEASE STAGE 3 A CHRONIC KIDNEY DISEASE Medical History ANEMIA Medical History HISTORY OF GASTRIC ULCER Medical History PELVIS FRACTURE Medical History LOW BACK FRACTURES Surgical History ANTON 1971 Surgical History LAMINECTOMY Surgical History FORAMINOTMY L2-5 Surgical History CARARACTS 2009 Surgical History COLONOSCOPY 01/2019 Surgical History LEFT TKA 01/2009 Surgical History EGD 04/2017 Hospitalization History SEE ABOVE Hospitalization History ELEVATED POTASSIUM LEVEL 08/2021 [facility] 10-17-2023 Evaluation note* Encounter Date Diagnosis Assessment Notes Treatment Notes Treatment Clinical Notes Jul, Lumbar spondylosis (ICD-10 - M47.816) [facility] 09-07-2023 NoteHNO ID: [id number] Author: Shanna Lantigua RN Service: ? Author Type: Registered Nurse Type: Progress Notes Filed: 06/26/2023 10:45 AM Note Text: Hgb 11 today. Does not meet parameters for aranesp. No injection today. Pt given copy of labs and agrees with plan. Will make/keep next appointment. [facility]09-07-2023 History of Present illness Narrative* Shanna Lantigua RN - 06/26/2023 10:44 AM EDT Hgb 11 today. Does not meet parameters for aranesp. No injection today. Pt given copy of labs and agrees with plan. Will make/keep next appointment. [facility] Miscellaneous Notes* Telephone Encounter - Delia Brady RN - 06/20/2023 1:13 PM EDT Henrietta will be in clinic for a blood draw and possible aranesp on 06/26/23. Although she hasn't required the injection since January we should still maybe have aranesp orders in place in case she requiresit. It's up to you but wanted to make you aware we currently have no orders. Delia Brady RN [facility]* Encounter Date Diagnosis Assessment Notes Treatment Notes Treatment Clinical Notes May, Type 2 diabetes mellitus with hyperglycemia, without long-term current use of insulin (ICD-10 - E11.65) This patient is following a comprehensive diabetic treatment plan. They are checking their feet daily for calluses and nonhealing ulcers. They are being seen for yearly dilated eye examinations. Goals: SBP less than 130, LDL less than 100, FBS less than 140, AC and A1C less than 7%. They are checking their BS daily, will which are reviewed at the office visit. Continue regular routine monitoring of A1C,] Microalbumin, Dilated eye exam and Foot exam May, Elevated cholesterol (ICD-10 - E78.00) Instructed on diet and exercise with continued statin therapy.Discussed the beneficial effects of lowering cholesterol in reducing the risk for cerebrovascular and cardiovascular disease. May, Primary hypertension (ICD-10 - I10) This patient is instructed to consume a healthy, low-fat, low-salt diet. They are also encouraged to continue exercise to achieve/maintain a normal BMI. May, Gastroesophageal reflux disease with esophagitis without hemorrhage (ICD-10 - K21.00) Diet instructions: Smaller portions, avoid eating and laying flat, avoid eating or drinking prior to bedtime. Weight loss. May, Chronic venous insufficiency (ICD-10 - I87.2) Avoid salt and elevate lower extremities, support stockings, inspect legs and feet daily for blisters and ulcerations. May, Chronic kidney disease (CKD), stage IV (severe) (ICD-10 - N18.4) The patient is instructed on adequate control of hypertension and diabetes, if appropriate. They are also educated on the associated risks of NSAIDs and PPI use with kidney disease. They were instructed on adequate fluid balance and to avoid dehydration. May, Age-related osteoporosis without current pathological fracture (ICD-10 - M81.0) No acute fractures Due for Prolia Continue Ca and Vit D supplements May, Bruit of right carotid artery (ICD-10 - R09.89) Stable Continue ASA May, Lumbar spondylosis (ICD-10 - M47.816) This patient is aware of the benefits associated with ELAINA: With continued use, the patient reduces the risk for GA, CVA, HTN, cardiac dysrhythmias and sudden cardiac deaths.The patient is also aware of the association between ELAINA and morning headaches, daytime somnolence, fatigue and obesity, which also has been improved with continued use.The patient is compliant with treatment, wearing the equipment every night for greater than 4 hours.The patient is instructed to continue use of the CPAP for ELAINA treatment. [facility] 08-30-2023 History general Narrative - Reported* Type Description Date Medical History ACUTE KIDNEY INJURY Medical History HYPERTENSIVE KIDNEY DISEASE STAGE 3 A CHRONIC KIDNEY DISEASE Medical History ANEMIA Medical History HISTORY OF GASTRIC ULCER Medical History PELVIS FRACTURE Medical History LOW BACK FRACTURES Surgical History ANTON 1970 Surgical History LAMINECTOMY Surgical History FORAMINOTMY L2-5 Surgical History CARARACTS 2009 Surgical History COLONOSCOPY 01/2019 Surgical History LEFT TKA 01/2009 Surgical History EGD 04/2017 Hospitalization History SEE ABOVE Hospitalization History ELEVATED POTASSIUM LEVEL 08/2021 [facility] 08-25-2023 History general Narrative - Reported* Type Description Date Medical History ACUTE KIDNEY INJURY Medical History HYPERTENSIVE KIDNEY DISEASE STAGE 3 A CHRONIC KIDNEY DISEASE Medical History ANEMIA Medical History HISTORY OF GASTRIC ULCER Medical History PELVIS FRACTURE Medical History LOW BACK FRACTURES Surgical History ANTON 1971 Surgical History LAMINECTOMY Surgical History FORAMINOTMY L2-5 Surgical History CARARACTS 2009 Surgical History COLONOSCOPY 01/2019 Surgical History LEFT TKA 01/2009 Surgical History EGD 04/2017 Hospitalization History SEE ABOVE Hospitalization History ELEVATED POTASSIUM LEVEL 08/2021 [facility] 08-10-2023 Evaluation note* Encounter Date Diagnosis Assessment Notes Treatment Notes Treatment Clinical Notes May, 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 She appears to be euvolemic. Continue current medications. May, Chronic kidney disea se (CKD), stage IV (severe) (ICD-10 - N18.4) She has CKD due to HTN. Her serum Creatinine is 1.4 mg/dl. She has no evidence of proteinuria and hematuria on the UA so suspicion for RPGN is low. She has weakly positive ARLINE but unremarkable ANCA . She has unremarkable serologies for hepatitis and paraproteinemia. She has no evidence of obstructive uropathy on renal ultrasound. I have advised her to avoid the NSAIDs. She is nonimmune to the hepatitis B. May, Secondary hyperparathyroidism (ICD-10 - N25.81) MBD parameters including calcium, phosphorus, PTH and vitamin D are within the goal. May, Anemia of renal dise ase (ICD-10 - D63.1) Hemoglobin is within the goal. Continue to follow with the hematology. May, Hyperuricemia (ICD-1 0 - E79.0) She has hyperuricemia due to the CKD but denies any recent gout flares. We will continue to monitor without medications. May, Hypomagnesemia (ICD- 10 - E83.42) She has a hypomagnesemia possibly due to the poor absorption.Continue oral magnesium. May, Murmur (ICD-10 - R01.1) She has a systolic murmur on exam. Will check the echocardiogram to rule out valvular heart disease. [facility] 08-10-2023 History general Narrative - Reported* Type Description Date Medical History ACUTE KIDNEY INJURY Medical History HYPERTENSIVE KIDNEY DISEASE STAGE 3 A CHRONIC KIDNEY DISEASE Medical History ANEMIA Medical History HISTORY OF GASTRIC ULCER Medical History PELVIS FRACTURE Medical History LOW BACK FRACTURES Surgical History ANTON 1971 Surgical History LAMINECTOMY Surgical History FORAMINOTMY L2-5 Surgical History CARARACTS 2008 Surgical History COLONOSCOPY 01/2019 Surgical History LEFT TKA 01/2009 Surgical History EGD 04/2017 Hospitalization History SEE ABOVE Hospitalization History ELEVATED POTASSIUM LEVEL 08/2021 [facility] 07-27-2023 History general Narrative - Reported* Type Description Date Medical History ACUTE KIDNEY INJURY Medical History HYPERTENSIVE KIDNEY DISEASE STAGE 3 A CHRONIC KIDNEY DISEASE Medical History ANEMIA Medical History HISTORY OF GASTRIC ULCER Medical History PELVIS FRACTURE Medical History LOW BACK FRACTURES Surgical History ANTON 1971 Surgical History LAMINECTOMY Surgical History FORAMINOTMY L2-5 Surgical History CARARACTS 2009 Surgical History COLONOSCOPY 01/2019 Surgical History LEFT TKA 01/2009 Surgical History EGD 04/2017 Hospitalization History SEE ABOVE Hospitalization History ELEVATED POTASSIUM LEVEL 08/2021 [facility] 07-18-2023 History general Narrative - Reported* Type Description Date Medical History ACUTE KIDNEY INJURY Medical History HYPERTENSIVE KIDNEY DISEASE STAGE 3 A CHRONIC KIDNEY DISEASE Medical History ANEMIA Medical History HISTORY OF GASTRIC ULCER Medical History PELVIS FRACTURE Medical History LOW BACK FRACTURES Surgical History ANTON 1971 Surgical History LAMINECTOMY Surgical History FORAMINOTMY L2-5 Surgical History CARARACTS 2009 Surgical History COLONOSCOPY 01/2019 Surgical History LEFT TKA 01/2009 Surgical History EGD 04/2017 Hospitalization History SEE ABOVE Hospitalization History ELEVATED POTASSIUM LEVEL 08/2021 [facility] 07-13-2023 NoteHNO ID: [id number] Author: Atif Yousif MD Service: ? Author Type: Physician Type: Progress Notes Filed: 05/02/2023 6:52 AM Note Text: PATIENT NAME: Henrietta Magana DATE: 05/01/2023 PRIMARY CARE PHYSICIAN: Dr. Alex Lloyd OTHER PHYSICIANS: Dr. Holden (pain management), Dr. Flores, Dr. Amin Portions of this encounter note have been copied from the note from 02/06/2023 and has been updated where appropriate, and reflect my current medical decision making from today. CC: This is an 83 year old female with chronic anemia, seen for scheduled follow-up. INTERIM HISTORY: Since the patient's last visit here she apparently was diagnosed with prediabetes per PCP. A low-carb diet has been prescribed. The patient has had no other significant medical changes. Overall she feels quite well today with no particular complaints. She has had no evidence of bleeding or bruising. MEDICATIONS: HYDROcodone-Acetaminophen (NORCO) 7.5-325 mg per tablet TAKE 1 TABLET BY MOUTH 3 TIMES A DAY NEEDED FOR PAIN calcium carbonate/vitamin D3 (CALCIUM 600 + D ORAL) Take by mouth. famotidine (PEPCID) 20 mg tablet Take by mouth twice daily. amLODIPine (NORVASC) 5 mg tablet fenofibrate (LOFIBRA) 134 mg capsule Take 134 mg by mouth daily at bedtime. [id number]-epa-fish oil 300-1,000 mg cpDR Take by mouth. carvedilol (COREG) 6.25 mg tablet Take 1 tablet by mouth twice daily. gabapentin (NEURONTIN) 100 mg capsule Take 300 mg by mouth three times daily. ALLERGIES: Sulfa (Sulfonamide Antibiotics) and Venofer [Iron Sucrose] PAST MEDICAL HISTORY: PAST MEDICAL HISTORY Diagnosis Date Anemia Arthritis Chronic renal insufficiency Crohn's disease (HCC) Degenerative joint disease GERD (gastroesophageal reflux disease) Hyperlipidemia Hypertension Iron deficiency Osteoarthritis PAST SURGICAL HISTORY: PAST SURGICAL HISTORY Procedure Laterality Date BACK SURGERY HX 2004 Dr. Guillen CATARACT SURGERY, COMPLEX COLONOSCOPY EGD HYSTERECTOMY HX KNEE SURGERY HX 2009 TKR. Left REVIEW OF SYSTEMS: General: No weight loss, malaise or fevers. Increasing fatigue. HEENT: Negative for frequent or significant headaches. No changes in hearing or vision, no nose bleeds or other nasal problems. Respiratory: Negative for cough, wheezing or shortness of breath. Cardiovascular: Negative for chest pain, leg swelling or palpitations. GI: Negative for abdominal discomfort, blood in stools or black stools or change in bowel habits. : No history of dysuria, frequency or incontinence. Musculoskeletal: Positive for joint pain and swelling and muscle pain- chronic. Skin: Negative for lesions, rash, and itching. Hematology/Lymphology: Negative for prolonged bleeding, bruising easily or swollen nodes. Neuro: No history of headaches, syncope, paralysis, seizures or tremors. PHYSICAL EXAM: Vitals: BP 143/70 Pulse 84 Temp 36.2 ?C (97.1 ?F) (Temporal) Resp 16 Ht 152.4 cm (5') SpO2 94% BMI 30.08 kg/m? ECOG 1 Exam limited to gross visualization where appropriate due to COVID-19. Gen.: This is an age-appropriate patient in no acute distress. Head: Appears atraumatic with no visible lesions. Eyes: Pupils equally round and reactive to light, extraocular muscles are intact. Neck: Supple. Mouth: Masked. Respiratory: Appears to be respiring comfortably. Neurologic: Nonfocal to gross visualization. Alert and oriented ?3. Psychiatric: No evidence of inappropriate anxiety or depression. Skin: Visible areas of skin without rash, lesions, wounds or petechiae. LABORATORY DATA: Hemoglobin (g/dL) Date Value 05/01/2023 11.5 12/13/2021 11.6 Hematocrit (%) Date Value 05/01/2023 35.2 12/13/2021 37.0 WBC (k/uL) Date Value 05/01/2023 5.80 12/13/2021 4.90 Platelet Count (k/uL) Date Value 05/01/2023 205 12/13/2021 213 ASSESSMENT/PLAN: 1. 285.9 Anemia (primary diagnosis) Severe anemia initially discovered February 2007 (hemoglobin 6.7). Bone marrow biopsy April 2007 nondiagnostic. Etiology multifactorial - in part due to iron deficiency from GI bleeding, in part due to CRI. Shortly after initial presentation the patient received multiple blood transfusions, iron infusions, and EPO injections with resolution of her anemia. The patient developed recurrent anemia in January 2019 due to an upper GI bleed from peptic ulcer disease. With appropriate management her anemia initially returned to baseline. However, since 2020 her anemia has worsened as a result of chronic renal insufficiency and the patient became symptomatic with severe fatigue. For the treatment of renal failure induced anemia the patient was started on Aranesp 11/29/2021, with plans to give as needed to maintain hemoglobin 10-11. Since starting Aranesp the patient has clinically improved and her CBC has improved significantly. She last received Aranesp 02/06/2023 Her hemoglobin today is >11 (more content not included)...[facility]07-13-2023 History of Present illness Narrative* Atif Yousif MD - 05/01/2023 8:11 AM EDT PATIENT NAME: Henrietta Magana DATE: 05/01/2023 PRIMARY CARE PHYSICIAN: Dr. Alex Lloyd OTHER PHYSICIANS: Dr. Holden (pain management), Dr. Flores, Dr. Amin Portions of this encounter note have been copied from the note from 02/06/2023 and has been updated where appropriate, and reflect my current medical decision making from today. CC: This is an 83 year old female with chronic anemia, seen for scheduled follow-up. INTERIM HISTORY: Since the patient's last visit here she apparently was diagnosed with prediabetes per PCP. A low-carb diet has been prescribed. The patient has had no other significant medical changes. Overall she feels quite well today with no particular complaints. She has had no evidence of bleeding or bruising. MEDICATIONS: HYDROcodone-Acetaminophen (NORCO) 7.5-325 mg per tablet TAKE 1 TABLET BY MOUTH 3 TIMES A DAY NEEDED FOR PAIN calcium carbonate/vitamin D3 (CALCIUM 600 + D ORAL) Take by mouth. famotidine (PEPCID) 20 mg tablet Take by mouth twice daily. amLODIPine (NORVASC) 5 mg tablet fenofibrate (LOFIBRA) 134 mg capsule Take 134 mg by mouth daily at bedtime. [id number]-yki-epa-fish oil 300-1,000 mg cpDR Take by mouth. carvedilol (COREG) 6.25 mg tablet Take 1 tablet by mouth twice daily. gabapentin (NEURONTIN) 100 mg capsule Take 300 mg by mouth three times daily. ALLERGIES: Sulfa (Sulfonamide Antibiotics) and Venofer [Iron Sucrose] PAST MEDICAL HISTORY: PAST MEDICAL HISTORY Diagnosis Date Anemia Arthritis Chronic renal insufficiency Crohn's disease (HCC) Degenerative joint disease GERD (gastroesophageal reflux disease) Hyperlipidemia Hypertension Iron deficiency Osteoarthritis PAST SURGICAL HISTORY: PAST SURGICAL HISTORY Procedure Laterality Date BACK SURGERY HX 2004 Dr. Guillen CATARACT SURGERY, COMPLEX COLONOSCOPY EGD HYSTERECTOMY HX KNEE SURGERY HX 2009 TKR. Left REVIEW OF SYSTEMS: General: No weight loss, malaise or fevers. Increasing fatigue. HEENT: Negative for frequent or significant headaches. No changes in hearing or vision, no nose bleeds or other nasal problems. Respiratory: Negative for cough, wheezing or shortness of breath. Cardiovascular: Negative for chest pain, leg swelling or palpitations. GI: Negative for abdominal discomfort, blood in stools or black stools or change in bowel habits. : No history of dysuria, frequency or incontinence. Musculoskeletal: Positive for joint pain and swelling and muscle pain- chronic. Skin: Negative for lesions, rash, and itching. Hematology/Lymphology: Negative for prolonged bleeding, bruising easily or swollen nodes. Neuro: No history of headaches, syncope, paralysis, seizures or tremors. PHYSICAL EXAM: Vitals: BP 143/70 Pulse 84 Temp 36.2 C (97.1 F) (Temporal) Resp 16 Ht 152.4 cm (5') SpO2 94% BMI 30.08 kg/m ECOG 1 Exam limited to gross visualization where appropriate due to COVID-19. Gen.: This is an age-appropriate patient in no acute distress. Head: Appears atraumatic with no visible lesions. Eyes: Pupils equally round and reactive to light, extraocular muscles are intact. Neck: Supple. Mouth: Masked. Respiratory: Appears to be respiring comfortably. Neurologic: Nonfocal to gross visualization. Alert and oriented 3. Psychiatric: No evidence of inappropriate anxiety or depression. Skin: Visible areas of skin without rash, lesions, wounds or petechiae. LABORATORY DATA: Hemoglobin (g/dL) Date Value 05/01/2023 11.5 12/13/2021 11.6 Hematocrit (%) Date Value 05/01/2023 35.2 12/13/2021 37.0 WBC (k/uL) Date Value 05/01/2023 5.80 12/13/2021 4.90 Platelet Count (k/uL) Date Value 05/01/2023 205 12/13/2021 213 ASSESSMENT/PLAN: 1. 285.9 Anemia (primary diagnosis) Severe anemia initially discovered February 2007 (hemoglobin 6.7). Bone marrow biopsy April 2007 nondiagnostic. Etiology multifactorial - in part due to iron deficiency from GI bleeding, in part due to CRI. Shortly after initial presentation the patient received multiple blood transfusions, iron infusions, and EPO injections with resolution of her anemia. The patient developed recurrent anemia in January2019 due to an upper GI bleed from peptic ulcer disease. With appropriate management her anemia initially returned to baseline. However, since 2020 her anemia has worsened as a result of chronic renal insufficiency and the patient became symptomatic with severe fatigue. For the treatment of renal failure induced anemia the patient was started on Aranesp 11/29/2021, with plans to give as needed to maintain hemoglobin 10-11. Since starting Aranesp the patient has clinically improved and her CBC has improved significantly. She last received Aranesp 02/06/2023 Her hemoglobin today is >11, therefore she will not receive Aranesp. We will obtain CBC in 2 months and give Aranesp if needed. Return for follow-up and labs in 4 months 2. 280.9 History of iron deficiency The patient has a long history of intermittent iron deficiency secondary to GI bleeding. Previous GI evaluation revealed evidence of gastric bleeding from a hiatal hernia. In January 2019 she was foundto have peptic ulcer disease with bleeding. For the treatment of iron deficiency she has received iron supplements in the past. Current iron stores are normal. We will continue to monitor her iron stores, and replete with oral or IV iron as indicated if iron deficiency recurs. 3. 585.9 Chronic renal insufficiency The patient has a long history of renal insufficiency, worsening since 2020. Baseline creatinine approximately 2. She will continue management per PCP/nephrology. 4. 555.9 Crohn's disease Currently stable. Continue management per PCP/gastroenterology. 5. Osteoporosis The patient has been on Prolia every 6 months since September 2016, currently given at [facility].. Continue management per PCP. Atif Yousif MD CC: [facility]. Amin [facility] NoteHNO ID: [id number] Author: Chelle Beckford RN Service: ? Author Type: Registered Nurse Type: Progress Notes Filed: 03/20/2023 1:51 PM Note Text: Hgb 11.7, parameter not met for Aranesp. Pt notified and verbalizes understanding. Chelle Beckford [facility]NL[facility] History of Present illness Narrative* Chelle Beckford RN - 03/20/2023 1:41 PM EDT Hgb 11.7, parameter not met for Aranesp. Pt notified and verbalizes understanding. Chelle Beckford RN documented [facility]30[facility] note* Encounter Date Diagnosis Assessment Notes Treatment Notes Treatment Clinical Notes February, Type 2 diabetes mellitus with hyperglycemia, without long-term current use of insulin (ICD-10 - E11.65) This patient is following a comprehensive diabetic treatment plan. They are checking their feet daily for calluses and nonhealing ulcers. They are being seen for yearly dilated eye examinations. Goals: SBP less than 130, LDL less than 100, FBS less than 140, AC and A1C less than 7%. They are checking their BS daily, will which are reviewed at the office visit. Continue regular routine monitoring of A1C,] Microalbumin, Dilated eye exam and Foot exam Goal A1C < 8% FBS < 150, 2 hour PP < 200 February, Elevated cholesterol (ICD-10 - E78.00) Instructed on diet and exercise with continued statin therapy.Discussed the beneficial effects of lowering cholesterol in reducing the risk for cerebrovascular and cardiovascular disease. February, Primary hypertension (ICD-10 - I10) This patient is instructed to consume a healthy, low-fat, low-salt diet. They are also encouraged to continue exercise to achieve/maintain a normal BMI. Patient is instructed on home BP measurements: - rest for 5 minutes w/o talking- positioned w/ feet on floor and arm supported- average best 2/3 readings w/ goal < 135-85 February, Gastroesophageal reflux disease with esophagitis without hemorrhage (ICD-10 - K21.00) Diet instructions: Smaller portions, avoid eating and laying flat, avoid eating or drinking prior to bedtime. Weight loss. February, Chronic venous insufficiency (ICD-10 - I87.2) Avoid salt and elevate lower extremities, support stockings, inspect legs and feet daily for blisters and ulcerations. February, Chronic kidney disease (CKD), stage IV (severe) (ICD-10 - N18.4) The patient is instructed on adequate control of hypertension and diabetes, if appropriate. They are also educated on the associated risks of NSAIDs and PPI use with kidney disease. They were instructed on adequate fluid balance and to avoid dehydration. February, Age-related osteoporosis without current pathological fracture (ICD-10 - M81.0) Ca and Vit D supplements. Continue Prolia Monitor GFR February, Bruit of right carotid artery (ICD-10 - R09.89) Check carotid US [facility] Other 05-08-2023 Evaluation note* Encounter Date Diagnosis Assessment Notes Treatment Notes Treatment Clinical Notes February, Type 2 diabetes mellitus with hyperglycemia, without long-term current use of insulin (ICD-10 - E11.65) [facility] Other 05-02-2023 History general Narrative - Reported* Type Description Date Medical History ACUTE KIDNEY INJURY Medical History HYPERTENSIVE KIDNEY DISEASE STAGE 3 A CHRONIC KIDNEY DISEASE Medical History ANEMIA Medical History HISTORY OF GASTRIC ULCER Medical History PELVIS FRACTURE Medical History LOW BACK FRACTURES Surgical History ANTON 1970 Surgical History LAMINECTOMY Surgical History FORAMINOTMY L2-5 Surgical History CARARACTS 2009 Surgical History COLONOSCOPY 01/2019 Surgical History LEFT TKA 01/2009 Surgical History EGD 04/2017 Hospitalization History SEE ABOVE Hospitalization History ELEVATED POTASSIUM LEVEL 08/2021 [facility] Other 05-01-2023 Evaluation note* Encounter Date Diagnosis Assessment Notes Treatment Notes Treatment Clinical Notes February, Benign paroxysmal positional vertigo due to bilateral vestibular disorder (ICD-10 - H81.13) Reassure patient. Monitor for recurrence, avoid abrupt change in head position. Hydrate, avoid skipping meals. Monitor for additional neurologic symptoms and go directly to ER for s/s suggestive of Stroke. If recurs, will pursue further evaluation and treatment February, Chronic kidney disease, stage III (moderate) (ICD-10 - N18.30) Hydrate, avoid NSAIDs Treatment of diabetes w/ SGLT-2 may have dual benefit February, Iron deficiency anemia secondary to inadequate dietary iron intake (ICD-10 - D50.8) Check H/H, typically has been stable and her symptoms are more suggestive of vertigo rather than volume depletion from anemia. Monitor for s/s bleeding February, Type 2 diabetes mellitus with hyperglycemia, without long-term current use of insulin (ICD-10 - E11.65) February, Bruit of right carotid artery (ICD-10 - R09.89) [facility] Other 05-01-2023 History general Narrative - Reported* Type Description Date Medical History ACUTE KIDNEY INJURY Medical History HYPERTENSIVE KIDNEY DISEASE STAGE 3 A CHRONIC KIDNEY DISEASE Medical History ANEMIA Medical History HISTORY OF GASTRIC ULCER Medical History PELVIS FRACTURE Medical History LOW BACK FRACTURES Surgical History ANTON 1971 Surgical History LAMINECTOMY Surgical History FORAMINOTMY L2-5 Surgical History CARARACTS 2009 Surgical History COLONOSCOPY 01/2019 Surgical History LEFT TKA 01/2009 Surgical History EGD 04/2017 Hospitalization History SEE ABOVE Hospitalization History ELEVATED POTASSIUM LEVEL 08/2021 [facility] Other 04-29-2023 History general Narrative - Reported* Type Description Date Medical History ACUTE KIDNEY INJURY Medical History HYPERTENSIVE KIDNEY DISEASE STAGE 3 A CHRONIC KIDNEY DISEASE Medical History ANEMIA Medical History HISTORY OF GASTRIC ULCER Medical History PELVIS FRACTURE Medical History LOW BACK FRACTURES Surgical History ANTON 1971 Surgical History LAMINECTOMY Surgical History FORAMINOTMY L2-5 Surgical History CARARACTS 2009 Surgical History COLONOSCOPY 01/2019 Surgical History LEFT TKA 01/2009 Surgical History EGD 04/2017 Hospitalization History SEE ABOVE Hospitalization History ELEVATED POTASSIUM LEVEL 08/2021 [facility] Other 04-20-2023 NoteHNO ID: [id number] Author: Atif Yousif MD Service: ? Author Type: Physician Type: Progress Notes Filed: 2023 6:43 AM Note Text: PATIENT NAME: Henrietta Magana DATE: 02/06/2023 PRIMARY CARE PHYSICIAN: Dr. Alex Lloyd OTHER PHYSICIANS: Dr. Holden (pain management), Dr. Flores, Dr. Amin Portions of this encounter note have been copied from the note from 11/11/2022 and has been updated where appropriate, and reflect my current medical decision making from today. CC: This is an 83 year old female with chronic anemia, seen for scheduled follow-up. INTERIM HISTORY: Since the patient's last visit here she has had no significant medical changes. She remains on Aranesp as needed for hemoglobin less than 11, last given 12/25/2022. Currently she feels well with no particular complaints. No unusual pain or other systemic symptoms. No signs of bleeding. Her birthday is today and she turns 83! MEDICATIONS: HYDROcodone-Acetaminophen (NORCO) 7.5-325 mg per tablet TAKE 1 TABLET BY MOUTH 3 TIMES A DAY NEEDED FOR PAIN calcium carbonate/vitamin D3 (CALCIUM 600 + D ORAL) Take by mouth. famotidine (PEPCID) 20 mg tablet Take by mouth twice daily. amLODIPine (NORVASC) 5 mg tablet fenofibrate (LOFIBRA) 134 mg capsule Take 134 mg by mouth daily at bedtime. [id number]-vms-epa-fish oil 300-1,000 mg cpDR Take by mouth. carvedilol (COREG) 6.25 mg tablet Take 1 tablet by mouth twice daily. gabapentin (NEURONTIN) 100 mg capsule Take 300 mg by mouth three times daily. ALLERGIES: Sulfa (Sulfonamide Antibiotics) and Venofer [Iron Sucrose] PAST MEDICAL HISTORY: PAST MEDICAL HISTORY Diagnosis Date Anemia Arthritis Chronic renal insufficiency Crohn's disease (HCC) Degenerative joint disease GERD (gastroesophageal reflux disease) Hyperlipidemia Hypertension Iron deficiency Osteoarthritis PAST SURGICAL HISTORY: PAST SURGICAL HISTORY Procedure Laterality Date BACK SURGERY HX 2005 Dr. Guillen CATARACT SURGERY, COMPLEX COLONOSCOPY EGD HYSTERECTOMY HX KNEE SURGERY HX 2009 TKR. Left REVIEW OF SYSTEMS: General: No weight loss, malaise or fevers. Increasing fatigue. HEENT: Negative for frequent or significant headaches. No changes in hearing or vision, no nose bleeds or other nasal problems. Respiratory: Negative for cough, wheezing or shortness of breath. Cardiovascular: Negative for chest pain, leg swelling or palpitations. GI: Negative for abdominal discomfort, blood in stools or black stools or change in bowel habits. : No history of dysuria, frequency or incontinence. Musculoskeletal: Positive for joint pain and swelling and muscle pain- chronic. Skin: Negative for lesions, rash, and itching. Hematology/Lymphology: Negative for prolonged bleeding, bruising easily or swollen nodes. Neuro: No history of headaches, syncope, paralysis, seizures or tremors. PHYSICAL EXAM: Vitals: BP 129/90 Pulse 77 Temp 36.4 ?C (97.6 ?F) Resp 16 Ht 152.4 cm (5') SpO2 99% BMI 30.08 kg/m? ECOG 1 Exam limited to gross visualization where appropriate due to COVID-19. Gen.: This is an age-appropriate patient in no acute distress. Head: Appears atraumatic with no visible lesions. Eyes: Pupils equally round and reactive to light, extraocular muscles are intact. Neck: Supple. Mouth: Masked. Respiratory: Appears to be respiring comfortably. Neurologic: Nonfocal to gross visualization. Alert and oriented ?3. Psychiatric: No evidence of inappropriate anxiety or depression. Skin: Visible areas of skin without rash, lesions, wounds or petechiae. LABORATORY DATA: Hemoglobin (g/dL) Date Value 02/06/2023 10.6 12/13/2021 11.6 Hematocrit (%) Date Value 02/06/2023 33.0 12/13/2021 37.0 WBC (k/uL) Date Value 02/06/2023 4.92 12/13/2021 4.90 Platelet Count (k/uL) Date Value 02/06/2023 189 12/13/2021 213 ASSESSMENT/PLAN: 1. 285.9 Anemia (primary diagnosis) Severe anemia initially discovered February 2007 (hemoglobin 6.7). Bone marrow biopsy April 2007 nondiagnostic. Etiology multifactorial - in part due to iron deficiency from GI bleeding, in part due to CRI. Shortly after initial presentation the patient received multiple blood transfusions, iron infusions, and EPO injections with resolution of her anemia. The patient developed recurrent anemia in January 2019 due to an upper GI bleed from peptic ulcer disease. With appropriate management her anemia initially returned to baseline. However, since 2020 her anemia has worsened as a result of chronic renal insufficiency and the patient became symptomatic with severe fatigue. For the treatment of renal failure induced anemia the patient was started on Aranesp 11/29/2021, with plans to give as needed to maintain hemoglobin 10-11. Since starting Aranesp the patient has clinically improved and her CBC has improved significantly. She last received Aranesp 12/25/2022 Her hemoglobin to (more content not included)...[facility] 02-06-[facility]23 History of Present illness Narrative* Atif Yousif MD - 02/06/2023 7:43 AM EDT PATIENT NAME: Henrietta Magana DATE: 02/06/2023 PRIMARY CARE PHYSICIAN: Dr. Alex Lloyd OTHER PHYSICIANS: Dr. Holden (pain management), Dr. Flores, Dr. Amin Portions of this encounter note have been copied from the note from 11/11/2022 and has been updated where appropriate, and reflect my current medical decision making from today. CC: This is an 83 year old female with chronic anemia, seen for scheduled follow-up. INTERIM HISTORY: Since the patient's last visit here she has had no significant medical changes. She remains on Aranesp as needed for hemoglobin less than 11, last given 12/25/2022. Currently she feels well with no particular complaints. No unusual pain or other systemic symptoms.No signs of bleeding. Her birthday is today and she turns 83! MEDICATIONS: HYDROcodone-Acetaminophen (NORCO) 7.5-325 mg per tablet TAKE 1 TABLET BY MOUTH 3 TIMES A DAY NEEDED FOR PAIN calcium carbonate/vitamin D3 (CALCIUM 600 + D ORAL) Take by mouth. famotidine (PEPCID) 20 mg tablet Take by mouth twice daily. amLODIPine (NORVASC) 5 mg tablet fenofibrate (LOFIBRA) 134 mg capsule Take 134 mg by mouth daily at bedtime. [id number]-vwf-epa-fish oil 300-1,000 mg cpDR Take by mouth. carvedilol (COREG) 6.25 mg tablet Take 1 tablet by mouth twice daily. gabapentin (NEURONTIN) 100 mg capsule Take 300 mg by mouth three times daily. ALLERGIES: Sulfa (Sulfonamide Antibiotics) and Venofer [Iron Sucrose] PAST MEDICAL HISTORY: PAST MEDICAL HISTORY Diagnosis Date Anemia Arthritis Chronic renal insufficiency Crohn's disease (HCC) Degenerative joint disease GERD (gastroesophageal reflux disease) Hyperlipidemia Hypertension Iron deficiency Osteoarthritis PAST SURGICAL HISTORY: PAST SURGICAL HISTORY Procedure Laterality Date BACK SURGERY HX 2004 Dr. Guillen CATARACT SURGERY, COMPLEX COLONOSCOPY EGD HYSTERECTOMY HX KNEE SURGERY HX 2009 TKR. Left REVIEW OF SYSTEMS: General: No weight loss, malaise or fevers. Increasing fatigue. HEENT: Negative for frequent or significant headaches. No changes in hearing or vision, no nose bleeds or other nasal problems. Respiratory: Negative for cough, wheezing or shortness of breath. Cardiovascular: Negative for chest pain, leg swelling or palpitations. GI: Negative for abdominal discomfort, blood in stools or black stools or change in bowel habits. : No history of dysuria, frequency or incontinence. Musculoskeletal: Positive for joint pain and swelling and muscle pain- chronic. Skin: Negative for lesions, rash, and itching. Hematology/Lymphology: Negative for prolonged bleeding, bruising easily or swollen nodes. Neuro: No history of headaches, syncope, paralysis, seizures or tremors. PHYSICAL EXAM: Vitals: BP 129/90 Pulse 77 Temp 36.4 C (97.6 F) Resp 16 Ht 152.4 cm (5') SpO2 99% BMI 30.08 kg/m ECOG 1 Exam limited to gross visualization where appropriate due to COVID-19. Gen.: This is an age-appropriate patient in no acute distress. Head: Appears atraumatic with no visible lesions. Eyes: Pupils equally round and reactive to light, extraocular muscles are intact. Neck: Supple. Mouth: Masked. Respiratory: Appears to be respiring comfortably. Neurologic: Nonfocal to gross visualization. Alert and oriented 3. Psychiatric: No evidence of inappropriate anxiety or depression. Skin: Visible areas of skin without rash, lesions, wounds or petechiae. LABORATORY DATA: Hemoglobin (g/dL) Date Value 02/06/2023 10.6 12/13/2021 11.6 Hematocrit (%) Date Value 02/06/2023 33.0 12/13/2021 37.0 WBC (k/uL) Date Value 02/06/2023 4.92 12/13/2021 4.90 Platelet Count (k/uL) Date Value 02/06/2023 189 12/13/2021 213 ASSESSMENT/PLAN: 1. 285.9 Anemia (primary diagnosis) Severe anemia initially discovered February 2007 (hemoglobin 6.7). Bone marrow biopsy April 2007 nondiagnostic. Etiology multifactorial - in part due to iron deficiency from GI bleeding, in part due to CRI. Shortly after initial presentation the patient received multiple blood transfusions, iron infusions, and EPO injections with resolution of her anemia. The patient developed recurrent anemia in January2019 due to an upper GI bleed from peptic ulcer disease. With appropriate management her anemia initially returned to baseline. However, since 2020 her anemia has worsened as a result of chronic renal insufficiency and the patient became symptomatic with severe fatigue. For the treatment of renal failure induced anemia the patient was started on Aranesp 11/29/2021, with plans to give as needed to maintain hemoglobin 10-11. Since starting Aranesp the patient has clinically improved and her CBC has improved significantly. She last received Aranesp 12/25/2022 Her hemoglobin today is <11, therefore she will receive Aranesp. We will obtain CBC in 6 weeks and give Aranesp if needed. Return for follow-up and labs in 12 weeks. 2. 280.9 History of iron deficiency The patient has a long history of intermittent iron deficiency secondary to GI bleeding. Previous GI evaluation revealed evidence of gastric bleeding from a hiatal hernia. In January 2019 she was foundto have peptic ulcer disease with bleeding. For the treatment of iron deficiency she has received iron supplements in the past. Current iron stores are normal. We will continue to monitor her iron stores, and replete with oral or IV iron as indicated if iron deficiency recurs. 3. 585.9 Chronic renal insufficiency The patient has a long history of renal insufficiency, worsening since 2020. Baseline creatinine approximately 2. She will continue management per PCP/nephrology. 4. 555.9 Crohn's disease Currently stable. Continue management per PCP/gastroenterology. 5. Osteoporosis The patient has been on Prolia every 6 months since September 2016, currently given at [facility].. Continue management per PCP. Atif Yousif MD CC: [facility]. Amin [facility] History general Narrative - Reported* Type Description Date Medical History ACUTE KIDNEY INJURY Medical History HYPERTENSIVE KIDNEY DISEASE STAGE 3 A CHRONIC KIDNEY DISEASE Medical History ANEMIA Medical History HISTORY OF GASTRIC ULCER Medical History PELVIS FRACTURE Medical History LOW BACK FRACTURES Surgical History ANTON 1971 Surgical History LAMINECTOMY Surgical History FORAMINOTMY L2-5 Surgical History CARARACTS 2009 Surgical History COLONOSCOPY 01/2019 Surgical History LEFT TKA 01/2009 Surgical History EGD 04/2017 Hospitalization History SEE ABOVE Hospitalization History ELEVATED POTASSIUM LEVEL 08/2021 [facility] Other 04-10-2023 History general Narrative - Reported* Type Description Date Medical History ACUTE KIDNEY INJURY Medical History HYPERTENSIVE KIDNEY DISEASE STAGE 3 A CHRONIC KIDNEY DISEASE Medical History ANEMIA Medical History HISTORY OF GASTRIC ULCER Medical History PELVIS FRACTURE Medical History LOW BACK FRACTURES Surgical History ANTON 1971 Surgical History LAMINECTOMY Surgical History FORAMINOTMY L2-5 Surgical History CARARACTS 2009 Surgical History COLONOSCOPY 01/2019 Surgical History LEFT TKA 01/2009 Surgical History EGD 04/2017 Hospitalization History SEE ABOVE Hospitalization History ELEVATED POTASSIUM LEVEL 08/2021 [facility] Other 03-12-2023 NoteHOSPITAL REGULATIONS: All Positive and Important Negative Findings Shall Be Recorded Date of Consultation: 12/26/2022 Attending Physician: Consulting Physician: Mikey Holden M.D. CHIEF COMPLAINT: Low back and leg pain. HISTORY OF PRESENT ILLNESS: This is an 82-year-old female seen for a chief complaint of low back and leg pain. She rates her symptoms as a 0/10 at rest but gets up to a 9/10 with activity. She reports since her last visit her symptoms have been under good control. She is using the [place] twice a day. She states it is helpful and denies any side effects. She reports that at her last office visit with her primary care doctor he advised her that he would be willing to take over her prescriptions. She would like to do this but wanted to make sure that she could still come back here if needed. She denies new neurologic symptoms or issues with bladder or bowel control. She really does not have much radicular pain in the legs. Her Past Medical, Social, Family History along with Medications and Allergies is available and is reviewed. PHYSICAL EXAMINATION: General: She is a pleasant white female. Vital signs including blood pressure, heart rate and respirations are stable. Head: Head is normocephalic and external ears are normal. Neck: Neck is supple with no lesions. Cardiovascular: No signs of poor perfusion, no peripheral edema. Lungs: Breathing is unlabored. There is no wheezing present. Abdomen: Abdomen is soft, nondistended. Back: There is no lumbar tenderness. Musculoskeletal: Strength is 5/5 with the exception of 4/5 with right hip flexion, right knee extension, right knee flexion, and 3/5 with bilateral foot and great toe dorsiflexion. She has eversion deformities of both feet. Neurologic: Sensation is intact throughout. Her reflexes are diminished but symmetric. Psychiatric: Affect is appropriate. She is alert and oriented. ASSESSMENT: This is an 82-year-old female seen for a chief complaint of low back and leg pain. Her signs and symptoms are consistent with lumbosacral radiculopathy, lumbar stenosis with neurogenic claudication, and lumbosacral spondylosis. I reviewed an [place] Automated Rx Report on her which was appr opriate. Narcan was offered and was declined. Her BRIT was 15. PLAN: I addressed options with her and she had been extremely stable on her medication regimen so Ithink as long as Dr. Lloyd is okay with it it is reasonable for him to take over her prescribing. With her rather unique pathology I think her use of it is appropriate. She has been a completely compli ant patient and has shown zero signs of misuse. She can follow up with me if her symptoms were to intensify or if a new issue were to arise, but since she is only going to follow up here on an as needed basis I will release her from our medication contract in good standing. Mikey Holden M.D. rj Dictated: 12/26/2022 [id number] Transcribed: 12/28/2022 cc: Alex Lloyd D.O.[facility] Md, Cancer CenterComment on above:Result Comment: Electronically Signed By: Navin MCLEAN, Mikey\.nirmal\Date and Time Signed: 12/29/22 08:44 [id number] Evaluation note* Encounter Date Diagnosis Assessment Notes Treatment Notes Treatment Clinical Notes Nov, Chronic kidney disea se (CKD), stage IV (severe) (ICD-10 - N18.4) The patient is instructed on adequate control of hypertension and diabetes, if appropriate. They are also educated on the associated risks of NSAIDs and PPI use with kidney disease. They were instructed on adequate fluid balance and to avoid dehydration. Nov, Primary hypertension (ICD-10 - I10) This patient is instructed to consume a healthy, low-fat, low-salt diet. They are also encouraged to continue exercise to achieve/maintain a normal BMI. 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 Nov, Gastroesophageal reflux disease with esophagitis without hemorrhage (ICD-10 - K21.00) Diet instructions: Smaller portions, avoid eating and laying flat, avoid eating or drinking prior to bedtime. Weight loss. Nov, Chronic venous insufficiency (ICD-10 - I87.2) Avoid salt and elevate lower extremities, support stockings, inspect legs and feet daily for blisters and ulcerations. 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 She appears to be euvolemic. Continue current medications. Nov, Chronic kidney disea se (CKD), stage IV (severe) (ICD-10 - N18.4) She has CKD due to HTN. Her Serum Creatinine is 1.6 mg/dl. She has no evidence of proteinuria and hematuria on the UA so suspicion for RPGN is low. She has weakly positive ARLINE but unremarkable ANCA . She has unremarkable serologies for hepatitis and paraproteinemia. She has no evidence of obstructive uropathy on renal ultrasound. I have advised her to avoid the NSAIDs. She is nonimmune to the hepatitis B. Nov, Secondary hyperparathyroidism (ICD-10 - N25.81) MBD parameters including calcium, phosphorus, PTH and vitamin D are within the goal. Nov, Anemia of renal dise ase (ICD-10 - D63.1) Hemoglobin is within the goal. Continue to follow with the hematology. Nov, Hyperuricemia (ICD-1 0 - E79.0) She has hyperuricemia due to the CKD but denies any recent gout flares. We will continue to monitor without medications. Nov, Hypomagnesemia (ICD- 10 - E83.42) She has a hypomagnesemia possibly due to the poor absorption. I have ordered oral magnesium. [facility] Other 01-23-2023 NoteHNO ID: [id number] Author: Atif Yousif MD Service: ? Author Type: Physician Type: Progress Notes Filed: 11/13/2022 6:11 AM Note Text: PATIENT NAME: Henrietta Magana DATE: 11/11/2022 PRIMARY CARE PHYSICIAN: Dr. Alex Lloyd OTHER PHYSICIANS: Dr. Holden (pain management), Dr. Flores, Dr. Amin Portions of this encounter note have been copied from the note from 09/16/2022 and has been updated where appropriate, and reflect my current medical decision making from today. CC: This is an 82 year old female with chronic anemia, seen for scheduled follow-up. INTERIM HISTORY: The patient last received Aranesp on 09/16/2022. Since then she has had no significant medical changes. Chronic mild fatigue is unchanged. No new symptoms today. MEDICATIONS: HYDROcodone-Acetaminophen (NORCO) 7.5-325 mg per tablet TAKE 1 TABLET BY MOUTH 3 TIMES A DAY NEEDED FOR PAIN calcium carbonate/vitamin D3 (CALCIUM 600 + D ORAL) Take by mouth. famotidine (PEPCID) 20 mg tablet Take by mouth twice daily. amLODIPine (NORVASC) 5 mg tablet fenofibrate (LOFIBRA) 134 mg capsule Take 134 mg by mouth daily at bedtime. sjxhr-[id number]-rbc-epa-fish oil 300-1,000 mg cpDR Take by mouth. carvedilol (COREG) 6.25 mg tablet Take 1 tablet by mouth twice daily. gabapentin (NEURONTIN) 100 mg capsule Take 300 mg by mouth three times daily. ALLERGIES: Sulfa (Sulfonamide Antibiotics) and Venofer [Iron Sucrose] PAST MEDICAL HISTORY: PAST MEDICAL HISTORY Diagnosis Date Anemia Arthritis Chronic renal insufficiency Crohn's disease (HCC) Degenerative joint disease GERD (gastroesophageal reflux disease) Hyperlipidemia Hypertension Iron deficiency Osteoarthritis PAST SURGICAL HISTORY: PAST SURGICAL HISTORY Procedure Laterality Date BACK SURGERY HX 2004 Dr. Guillen CATARACT SURGERY, COMPLEX COLONOSCOPY EGD HYSTERECTOMY HX KNEE SURGERY HX 2009 TKR. Left REVIEW OF SYSTEMS: General: No weight loss, malaise or fevers. Increasing fatigue. HEENT: Negative for frequent or significant headaches. No changes in hearing or vision, no nose bleeds or other nasal problems. Respiratory: Negative for cough, wheezing or shortness of breath. Cardiovascular: Negative for chest pain, leg swelling or palpitations. GI: Negative for abdominal discomfort, blood in stools or black stools or change in bowel habits. : No history of dysuria, frequency or incontinence. Musculoskeletal: Positive for joint pain and swelling and muscle pain- chronic. Skin: Negative for lesions, rash, and itching. Hematology/Lymphology: Negative for prolonged bleeding, bruising easily or swollen nodes. Neuro: No history of headaches, syncope, paralysis, seizures or tremors. PHYSICAL EXAM: Vitals: BP 124/77 Pulse 84 Temp 36.3 ?C (97.4 ?F) (Temporal) Resp 16 Ht 152.4 cm (5') Wt 69.9 kg (154 lb) SpO2 94% BMI 30.08 kg/m? ECOG 1 Exam limited to gross visualization where appropriate due to COVID-19. Gen.: This is an age-appropriate patient in no acute distress. Head: Appears atraumatic with no visible lesions. Eyes: Pupils equally round and reactive to light, extraocular muscles are intact. Neck: Supple. Mouth: Masked. Respiratory: Appears to be respiring comfortably. Neurologic: Nonfocal to gross visualization. Alert and oriented ?3. Psychiatric: No evidence of inappropriate anxiety or depression. Skin: Visible areas of skin without rash, lesions, wounds or petechiae. LABORATORY DATA: Hemoglobin (g/dL) Date Value 11/11/2022 11.7 12/13/2021 11.6 Hematocrit (%) Date Value 11/11/2022 36.0 12/13/2021 37.0 WBC (k/uL) Date Value 11/11/2022 6.24 12/13/2021 4.90 Platelet Count (k/uL) Date Value 11/11/2022 211 12/13/2021 213 ASSESSMENT/PLAN: 1. 285.9 Anemia (primary diagnosis) Severe anemia initially discovered February 2007 (hemoglobin 6.7). Bone marrow biopsy April 2007 nondiagnostic. Etiology multifactorial - in part due to iron deficiency from GI bleeding, in part due to CRI. Shortly after initial presentation the patient received multiple blood transfusions, iron infusions, and EPO injections with resolution of her anemia. The patient developed recurrent anemia in January 2019 due to an upper GI bleed from peptic ulcer disease. With appropriate management her anemia initially returned to baseline. However, since 2020 her anemia has worsened as a result of chronic renal insufficiency and the patient became symptomatic with severe fatigue. For the treatment of renal failure induced anemia the patient was started on Aranesp 11/29/2021, with plans to give as needed to maintain hemoglobin 10-11. Since starting Aranesp the patient has clinically improved and her CBC has improved significantly. She last received Aranesp 09/16/2022 Her hemoglobin today is >11, therefore she will not receive Aranesp. We will obtain CBC in 6 weeks and give Aranesp if needed. Return for follow- (more content not included)...[facility]01-23-[facility] History of Present illness Narrative* Atif Yousif MD - 11/11/2022 7:43 AM EST PATIENT NAME: Henrietta Magana DATE: 11/11/2022 PRIMARY CARE PHYSICIAN: Dr. Alex Lloyd OTHER PHYSICIANS: Dr. Holden (pain management), Dr. Flores, Dr. Amin Portions of this encounter note have been copied from the note from 09/16/2022 and has been updatedwhere appropriate, and reflect my current medical decision making from today. CC: This is an 82 year old female with chronic anemia, seen for scheduled follow-up. INTERIM HISTORY: The patient last received Aranesp on 09/16/2022. Since then she has had no significant medical changes. Chronic mild fatigue is unchanged. No new symptoms today. MEDICATIONS: HYDROcodone-Acetaminophen (NORCO) 7.5-325 mg per tablet TAKE 1 TABLET BY MOUTH 3 TIMES A DAY NEEDED FOR PAIN calcium carbonate/vitamin D3 (CALCIUM 600 + D ORAL) Take by mouth. famotidine (PEPCID) 20 mg tablet Take by mouth twice daily. amLODIPine (NORVASC) 5 mg tablet fenofibrate (LOFIBRA) 134 mg capsule Take 134 mg by mouth daily at bedtime. bgpbv-7o-rjj-epa-fish oil 300-1,000 mg cpDR Take by mouth. carvedilol (COREG) 6.25 mg tablet Take 1 tablet by mouth twice daily. gabapentin (NEURONTIN) 100 mg capsule Take 300 mg by mouth three times daily. ALLERGIES: Sulfa (Sulfonamide Antibiotics) and Venofer [Iron Sucrose] PAST MEDICAL HISTORY: PAST MEDICAL HISTORY Diagnosis Date Anemia Arthritis Chronic renal insufficiency Crohn's disease (HCC) Degenerative joint disease GERD (gastroesophageal reflux disease) Hyperlipidemia Hypertension Iron deficiency Osteoarthritis PAST SURGICAL HISTORY: PAST SURGICAL HISTORY Procedure Laterality Date BACK SURGERY HX 2004 Dr. Guillen CATARACT SURGERY, COMPLEX COLONOSCOPY EGD HYSTERECTOMY HX KNEE SURGERY HX 2009 TKR. Left REVIEW OF SYSTEMS: General: No weight loss, malaise or fevers. Increasing fatigue. HEENT: Negative for frequent or significant headaches. No changes in hearing or vision, no nose bleeds or other nasal problems. Respiratory: Negative for cough, wheezing or shortness of breath. Cardiovascular: Negative for chest pain, leg swelling or palpitations. GI: Negative for abdominal discomfort, blood in stools or black stools or change in bowel habits. : No history of dysuria, frequency or incontinence. Musculoskeletal: Positive for joint pain and swelling and muscle pain- chronic. Skin: Negative for lesions, rash, and itching. Hematology/Lymphology: Negative for prolonged bleeding, bruising easily or swollen nodes. Neuro: No history of headaches, syncope, paralysis, seizures or tremors. PHYSICAL EXAM: Vitals: BP 124/77 Pulse 84 Temp 36.3 C (97.4 F) (Temporal) Resp 16 Ht 152.4 cm (5') Wt 69.9 kg (154 lb) SpO2 94% BMI 30.08 kg/m ECOG 1 Exam limited to gross visualization where appropriate due to COVID-19. Gen.: This is an age-appropriate patient in no acute distress. Head: Appears atraumatic with no visible lesions. Eyes: Pupils equally round and reactive to light, extraocular muscles are intact. Neck: Supple. Mouth: Masked. Respiratory: Appears to be respiring comfortably. Neurologic: Nonfocal to gross visualization. Alert and oriented 3. Psychiatric: No evidence of inappropriate anxiety or depression. Skin: Visible areas of skin without rash, lesions, wounds or petechiae. LABORATORY DATA: Hemoglobin (g/dL) Date Value 11/11/2022 11.7 12/13/2021 11.6 Hematocrit (%) Date Value 11/11/2022 36.0 12/13/2021 37.0 WBC (k/uL) Date Value 11/11/2022 6.24 12/13/2021 4.90 Platelet Count (k/uL) Date Value 11/11/2022 211 12/13/2021 213 ASSESSMENT/PLAN: 1. 285.9 Anemia (primary diagnosis) Severe anemia initially discovered February 2007 (hemoglobin 6.7). Bone marrow biopsy April 2007 nondiagnostic. Etiology multifactorial - in part due to iron deficiency from GI bleeding, in part due to CRI. Shortly after initial presentation the patient received multiple blood transfusions, iron infusions, and EPO injections with resolution of her anemia. The patient developed recurrent anemia in January2019 due to an upper GI bleed from peptic ulcer disease. With appropriate management her anemia initially returned to baseline. However, since 2020 her anemia has worsened as a result of chronic renal insufficiency and the patient became symptomatic with severe fatigue. For the treatment of renal failure induced anemia the patient was started on Aranesp 11/29/2021, with plans to give as needed to maintain hemoglobin 10-11. Since starting Aranesp the patient has clinically improved and her CBC has improved significantly. She last received Aranesp 09/16/2022 Her hemoglobin today is >11, therefore she will not receive Aranesp. We will obtain CBC in 6 weeks and give Aranesp if needed. Return for follow-up and labs in 12 weeks. 2. 280.9 History of iron deficiency The patient has a long history of intermittent iron deficiency secondary to GI bleeding. Previous GI evaluation revealed evidence of gastric bleeding from a hiatal hernia. In January 2019 she was foundto have peptic ulcer disease with bleeding. For the treatment of iron deficiency she has received iron supplements in the past. Current iron stores are normal. We will continue to monitor her iron stores, and replete with oral or IV iron as indicated if iron deficiency recurs. 3. 585.9 Chronic renal insufficiency The patient has a long history of renal insufficiency, worsening since 2020. Baseline creatinine approximately 2. She will continue management per PCP/nephrology. 4. 555.9 Crohn's disease Currently stable. Continue management per PCP/gastroenterology. 5. Osteoporosis The patient has been on Prolia every 6 months since September 2016, currently given at [facility].. Continue management per PCP. Atif Yousif MD CC: Dr. Amin [facility] NoteHOSPITAL REGULATIONS: All Positive and Important Negative Findings Shall Be Recorded Date of Consultation: 10/10/2022 Attending Physician: Alex Lloyd D.O. Consulting Physician: Mikey Hloden M.D. CHIEF COMPLAINT: Low back and leg pain. HISTORY OF PRESENT ILLNESS: This is an 82 year old female seen for a chief complaint of low back and right leg pain. She rates her symptoms as a 7/10. She reports that since her last visit her symptoms have been persistent but stable. She is using the [place] usually just twice a day. It keeps her symptoms under good control and helps her function. She denies side effects. She denies new neurologicsymptoms or issues with bladder or bowel control. PAST MEDICAL, PSYCHOSOCIAL, FAMILY HISTORY, ALONG WITH MEDICATIONS AND ALLERGIES is available and was reviewed. PHYSICAL EXAMINATION: General: She is a pleasant white female. Vital signs: Vital signs including blood pressure, heart rate and respirations are stable. Head: Head is normocephalic and external ears are normal. Neck: Neck is supple with no lesions. Cardiovascular: No signs of poor perfusion. No peripheral edema. Lungs: Breathing is unlabored. There is no wheezing present. Abdomen: Abdomen is soft and non-distended. Back: There is bilateral lumbar tenderness. Musculoskeletal: Strength is 5/5 with the exception of 4/5 with right hip flexion, right knee extension, right knee flexion and 3/5 with bilateral foot and great toe dorsiflexion. Neurologic: Sensation is intact throughout. Her reflexes are normal and symmetric. Psychiatric: Affect is appropriate and she is alert and oriented. ASSESSMENT:This is an 82 year old female seen for a chief complaint of right- sided low back and legpain. Her signs and symptoms are due to lumbosacral radiculopathy, lumbar stenosis with neurogenic claudication and lumbosacral spondylosis. I reviewed an [place] Automated Prescription Reporting Systemreport on her which is appropriate. Narcan was offered and was declined. PLAN: I addressed options with her and I will continue her current medication regimen as is for thetime being since it is providing her with adequate symptom relief without side effects and she has been compliant with her treatment regimen. I will see her for follow up in 2 months or sooner if needed. Cleveland Owens Dictated: 10/10/2022 [id number] Transcribed: 10/10/2022 cc:Alex Lloyd D.O.[facility], [facility] CenterComment on above:Result Comment: Electronically Signed By: Navin MCLEAN, Mikey\.br\Date and Time Signed: 10/11/22 17:13 [id number] NoteHNO ID: [id number] Author: Maranda Hope APRN.CLINICAL SPECIALTY REP Service: ? Author Type: Nurse Practitioner Type: Progress Notes Filed: 09/16/2022 4:19 PM Note Text: PATIENT NAME: Henrietta Magana DATE: 09/16/2022 PRIMARY CARE PHYSICIAN: Dr. Alex Lloyd OTHER PHYSICIANS: Dr. Holden (pain management), Dr. Flores, Dr. Amin Portions of this encounter note have been copied from the note from 07/08/2022 and has been updated where appropriate, and reflect my current medical decision making from today. CC: This is an 82 year old female with a history of chronic anemia, seen for scheduled follow-up. INTERIM HISTORY: Henrietta Magana returns for follow-up. Her last Aranesp injection with 200 mcg was on 07/08/2022. Since her last visit there has been no significant medical changes. She has mild unchanged fatigue. She denies any following bleeding or abnormal bruising. She denies fevers, chills, night sweats and signs/symptoms of infection. Overall she is doing well. MEDICATIONS: oxyCODONE IR (ROXICODONE) 5 mg immediate release tablet TAKE 1 TABLET BY MOUTH TWICE A DAY NEEDED FOR PAIN calcium carbonate/vitamin D3 (CALCIUM 600 + D ORAL) Take by mouth. famotidine (PEPCID) 20 mg tablet Take by mouth twice daily. amLODIPine (NORVASC) 5 mg tablet fenofibrate (LOFIBRA) 134 mg capsule Take 134 mg by mouth daily at bedtime. umziy-[id number]-xtt-epa-fish oil 300-1,000 mg cpDR Take by mouth. carvedilol (COREG) 6.25 mg tablet Take 1 tablet by mouth twice daily. gabapentin (NEURONTIN) 100 mg capsule Take 300 mg by mouth three times daily. ALLERGIES: Sulfa (Sulfonamide Antibiotics) and Venofer [Iron Sucrose] PAST MEDICAL HISTORY: PAST MEDICAL HISTORY Diagnosis Date Anemia Arthritis Chronic renal insufficiency Crohn's disease (HCC) Degenerative joint disease GERD (gastroesophageal reflux disease) Hyperlipidemia Hypertension Iron deficiency Osteoarthritis PAST SURGICAL HISTORY: PAST SURGICAL HISTORY Procedure Laterality Date BACK SURGERY HX 2004 Dr. Guillen CATARACT SURGERY, COMPLEX COLONOSCOPY EGD HYSTERECTOMY HX KNEE SURGERY HX 2009 TKR. Left REVIEW OF SYSTEMS: General: No weight loss, malaise or fevers. Increasing fatigue. HEENT: Negative for frequent or significant headaches. No changes in hearing or vision, no nose bleeds or other nasal problems. Respiratory: Negative for cough, wheezing or shortness of breath. Cardiovascular: Negative for chest pain, leg swelling or palpitations. GI: Negative for abdominal discomfort, blood in stools or black stools or change in bowel habits. : No history of dysuria, frequency or incontinence. Musculoskeletal: Positive for joint pain and swelling and muscle pain- chronic. Skin: Negative for lesions, rash, and itching. Hematology/Lymphology: Negative for prolonged bleeding, bruising easily or swollen nodes. Neuro: No history of headaches, syncope, paralysis, seizures or tremors. PHYSICAL EXAM: Vitals: BP 137/69 Pulse 67 Temp 36.3 ?C (97.4 ?F) (Temporal) Resp 16 Ht 152.4 cm (5') Wt 72.6 kg (160 lb) SpO2 98% BMI 31.25 kg/m? ECOG 1 Exam limited to gross visualization where appropriate due to COVID-19. Gen.: This is an age-appropriate patient in no acute distress. Head: Appears atraumatic with no visible lesions. Eyes: Pupils equally round and reactive to light, extraocular muscles are intact. Neck: Supple. Mouth: Masked. Respiratory: Appears to be respiring comfortably. Neurologic: Nonfocal to gross visualization. Alert and oriented ?3. Psychiatric: No evidence of inappropriate anxiety or depression. Skin: Visible areas of skin without rash, lesions, wounds or petechiae. LABORATORY DATA: Hemoglobin (g/dL) Date Value 09/16/2022 10.8 12/13/2021 11.6 Hematocrit (%) Date Value 09/16/2022 33.2 12/13/2021 37.0 WBC (k/uL) Date Value 09/16/2022 5.25 12/13/2021 4.90 Platelet Count (k/uL) Date Value 09/16/2022 191 12/13/2021 213 ASSESSMENT/PLAN: 1. 285.9 Anemia (primary diagnosis) Severe anemia initially discovered February 2007 (hemoglobin 6.7). Bone marrow biopsy April 2007 nondiagnostic. Etiology multifactorial - in part due to iron deficiency from GI bleeding, in part due to CRI. Shortly after initial presentation the patient received multiple blood transfusions, iron infusions, and EPO injections with resolution of her anemia. The patient developed recurrent anemia in January 2019 due to an upper GI bleed from peptic ulcer disease. With appropriate management her anemia initially returned to baseline. However, since 2020 her anemia has worsened as a result of chronic renal insufficiency and the patient became symptomatic with severe fatigue. For the treatment of renal failure induced anemia the patient was started on Aranesp 11/29/2021, with plans to give as needed to maintain hemoglobin 10-11. Since starting Aranesp the patient has clinically improved and her (more content not included)...[facility]11-28-2022 History of Present illness Narrative* Maranda Hope APRN.CLINICAL SPECIALTY REP - 09/16/2022 3:00 PM EST PATIENT NAME: Henrietta Magana DATE: 09/16/2022 PRIMARY CARE PHYSICIAN: Dr. Alex Lloyd OTHER PHYSICIANS: Dr. Holden (pain management), Dr. Flores, Dr. Amin Portions of this encounter note have been copied from the note from 07/08/2022 and has been updated where appropriate, and reflect my current medical decision making from today. CC: This is an 82 year old female with a history of chronic anemia, seen for scheduled follow-up. INTERIM HISTORY: Henrietta Magana returns for follow-up. Her last Aranesp injection with 200 mcg was on 07/08/2022. Since her last visit there has been no significant medical changes. She has mild unchanged fatigue. She denies any following bleeding or abnormal bruising. She denies fevers, chills, night sweats and signs/symptoms of infection. Overall she is doing well. MEDICATIONS: oxyCODONE IR (ROXICODONE) 5 mg immediate release tablet TAKE 1 TABLET BY MOUTH TWICE A DAY NEEDED FOR PAIN calcium carbonate/vitamin D3 (CALCIUM 600 + D ORAL) Take by mouth. famotidine (PEPCID) 20 mg tablet Take by mouth twice daily. amLODIPine (NORVASC) 5 mg tablet fenofibrate (LOFIBRA) 134 mg capsule Take 134 mg by mouth daily at bedtime. [id number]-epa-fish oil 300-1,000 mg cpDR Take by mouth. carvedilol (COREG) 6.25 mg tablet Take 1 tablet by mouth twice daily. gabapentin (NEURONTIN) 100 mg capsule Take 300 mg by mouth three times daily. ALLERGIES: Sulfa (Sulfonamide Antibiotics) and Venofer [Iron Sucrose] PAST MEDICAL HISTORY: PAST MEDICAL HISTORY Diagnosis Date Anemia Arthritis Chronic renal insufficiency Crohn's disease (HCC) Degenerative joint disease GERD (gastroesophageal reflux disease) Hyperlipidemia Hypertension Iron deficiency Osteoarthritis PAST SURGICAL HISTORY: PAST SURGICAL HISTORY Procedure Laterality Date BACK SURGERY HX 2004 Dr. Guillen CATARACT SURGERY, COMPLEX COLONOSCOPY EGD HYSTERECTOMY HX KNEE SURGERY HX 2009 TKR. Left REVIEW OF SYSTEMS: General: No weight loss, malaise or fevers. Increasing fatigue. HEENT: Negative for frequent or significant headaches. No changes in hearing or vision, no nose bleeds or other nasal problems. Respiratory: Negative for cough, wheezing or shortness of breath. Cardiovascular: Negative for chest pain, leg swelling or palpitations. GI: Negative for abdominal discomfort, blood in stools or black stools or change in bowel habits. : No history of dysuria, frequency or incontinence. Musculoskeletal: Positive for joint pain and swelling and muscle pain- chronic. Skin: Negative for lesions, rash, and itching. Hematology/Lymphology: Negative for prolonged bleeding, bruising easily or swollen nodes. Neuro: No history of headaches, syncope, paralysis, seizures or tremors. PHYSICAL EXAM: Vitals: BP 137/69 Pulse 67 Temp 36.3 C (97.4 F) (Temporal) Resp 16 Ht 152.4 cm (5') Wt 72.6 kg (160 lb) SpO2 98% BMI 31.25 kg/m ECOG 1 Exam limited to gross visualization where appropriate due to COVID-19. Gen.: This is an age-appropriate patient in no acute distress. Head: Appears atraumatic with no visible lesions. Eyes: Pupils equally round and reactive to light, extraocular muscles are intact. Neck: Supple. Mouth: Masked. Respiratory: Appears to be respiring comfortably. Neurologic: Nonfocal to gross visualization. Alert and oriented 3. Psychiatric: No evidence of inappropriate anxiety or depression. Skin: Visible areas of skin without rash, lesions, wounds or petechiae. LABORATORY DATA: Hemoglobin (g/dL) Date Value 09/16/2022 10.8 12/13/2021 11.6 Hematocrit (%) Date Value 09/16/2022 33.2 12/13/2021 37.0 WBC (k/uL) Date Value 09/16/2022 5.25 12/13/2021 4.90 Platelet Count (k/uL) Date Value 09/16/2022 191 12/13/2021 213 ASSESSMENT/PLAN: 1. 285.9 Anemia (primary diagnosis) Severe anemia initially discovered February 2007 (hemoglobin 6.7). Bone marrow biopsy April 2007 nondiagnostic. Etiology multifactorial - in part due to iron deficiency from GI bleeding, in part due to CRI. Shortly after initial presentation the patient received multiple blood transfusions, iron infusions, and EPO injections with resolution of her anemia. The patient developed recurrent anemia in January2019 due to an upper GI bleed from peptic ulcer disease. With appropriate management her anemia initially returned to baseline. However, since 2021 her anemia has worsened as a result of chronic renal insufficiency and the patient became symptomatic with severe fatigue. For the treatment of renal failure induced anemia the patient was started on Aranesp 11/29/2021, with plans to give as needed to maintain hemoglobin 10-11. Since starting Aranesp the patient has clinically improved and her CBC has improved significantly. Her hemoglobin today is <11, therefore she will receive Aranesp. The patient will return in 8 weeks for follow-up and labs, with Aranesp as needed if hemoglobin less than 11. 2. 280.9 History of iron deficiency The patient has a long history of intermittent iron deficiency secondary to GI bleeding. Previous GI evaluation revealed evidence of gastric bleeding from a hiatal hernia. In January 2019 she was foundto have peptic ulcer disease with bleeding. For the treatment of iron deficiency she has received iron supplements in the past. Current iron stores are normal. We will continue to monitor her iron stores, and replete with oral or IV iron as indicated if iron deficiency recurs. 3. 585.9 Chronic renal insufficiency The patient has a long history of renal insufficiency, worsening since 2020. Baseline creatinine approximately 2. She will continue management per PCP/nephrology. 4. 555.9 Crohn's disease Currently stable. Continue management per PCP/gastroenterology. 5. Osteoporosis The patient has been on Prolia every 6 months since September 2016, currently given at [facility].. Continue management per PCP. Maranda Hope APRN.KATIE CC: Dr. Dolores Benito spent a total of 30 minutes on the date of the service which included preparing to see the patient, [id number] patient care, completing clinical documentation, obtaining and/or reviewing separately obtained history, performing a medically appropriate examination, counseling and educating the pat ient/family/caregiver, ordering medications, tests, or procedures, independently interpreting results (not separately reported), and communicating results to the patient/family/caregiver. [facility] History of Present illness Narrative* Atif Yousif MD - 07/08/2022 7:19 AM EDT PATIENT NAME: Henrietta Magana DATE: 07/08/2022 PRIMARY CARE PHYSICIAN: Dr. Alex Lloyd OTHER PHYSICIANS: Dr. Holden (pain management), Dr. Flores, Dr. Amin Portions of this encounter note have been copied from the note from 04/15/2022 and has been updated where appropriate, and reflect my current medical decision making from today. CC: This is an 82 year old female with a history of chronic anemia, seen for scheduled follow-up. INTERIM HISTORY: The patient returns for scheduled follow-up. Since her last visit here she has hadno significant medical changes. She denies any significant bleeding or bruising. She remains on Aranesp as needed for anemia, and is tolerating it well. Since starting Aranesp she has felt much better with resolution of her fatigue and weakness. She last received Aranesp on 04/15/2022 for a hemoglobin of 10.6. MEDICATIONS: oxyCODONE IR (ROXICODONE) 5 mg immediate release tablet TAKE 1 TABLET BY MOUTH TWICE A DAY NEEDED FOR PAIN calcium carbonate/vitamin D3 (CALCIUM 600 + D ORAL) Take by mouth. famotidine (PEPCID) 20 mg tablet Take by mouth twice daily. amLODIPine (NORVASC) 5 mg tablet fenofibrate (LOFIBRA) 134 mg capsule Take 134 mg by mouth daily at bedtime. [id number]-[id number]-epa-fish oil 300-1,000 mg cpDR Take by mouth. carvedilol (COREG) 6.25 mg tablet Take 1 tablet by mouth twice daily. gabapentin (NEURONTIN) 100 mg capsule Take 300 mg by mouth three times daily. ALLERGIES: Sulfa (Sulfonamide Antibiotics) and Venofer [Iron Sucrose] PAST MEDICAL HISTORY: PAST MEDICAL HISTORY Diagnosis Date Anemia Arthritis Chronic renal insufficiency Crohn's disease (HCC) Degenerative joint disease GERD (gastroesophageal reflux disease) Hyperlipidemia Hypertension Iron deficiency Osteoarthritis PAST SURGICAL HISTORY: PAST SURGICAL HISTORY Procedure Laterality Date BACK SURGERY HX 2004 Dr. Guillen CATARACT SURGERY, COMPLEX COLONOSCOPY EGD HYSTERECTOMY HX KNEE SURGERY HX 2009 TKR. Left REVIEW OF SYSTEMS: General: No weight loss, malaise or fevers. Increasing fatigue. HEENT: Negative for frequent or significant headaches. No changes in hearing or vision, no nose bleeds or other nasal problems. Respiratory: Negative for cough, wheezing or shortness of breath. Cardiovascular: Negative for chest pain, leg swelling or palpitations. GI: Negative for abdominal discomfort, blood in stools or black stools or change in bowel habits. : No history of dysuria, frequency or incontinence. Musculoskeletal: Positive for joint pain and swelling and muscle pain- chronic. Skin: Negative for lesions, rash, and itching. Hematology/Lymphology: Negative for prolonged bleeding, bruising easily or swollen nodes. Neuro: No history of headaches, syncope, paralysis, seizures or tremors. PHYSICAL EXAM: Vitals: BP 145/86 Pulse 73 Temp 36.2 C (97.2 F) (Temporal) Resp 16 Ht 152.4 cm (5') SpO2 97% BMI 31.05 kg/m Exam limited to gross visualization where appropriate due to COVID-19. Gen.: This is an age-appropriate patient in no acute distress. Head: Appears atraumatic with no visible lesions. Eyes: Pupils equally round and reactive to light, extraocular muscles are intact. Neck: Supple. Mouth: Masked. Respiratory: Appears to be respiring comfortably. Neurologic: Nonfocal to gross visualization. Alert and oriented 3. Psychiatric: No evidence of inappropriate anxiety or depression. Skin: Visible areas of skin without rash, lesions, wounds or petechiae. LABORATORY DATA: Hemoglobin (g/dL) Date Value 07/08/2022 10.9 12/13/2021 11.6 Hematocrit (%) Date Value 07/08/2022 33.3 12/13/2021 37.0 WBC (k/uL) Date Value 07/08/2022 4.45 12/13/2021 4.90 Platelet Count (k/uL) Date Value 07/08/2022 183 12/13/2021 213 ASSESSMENT/PLAN: 1. 285.9 Anemia (primary diagnosis) Severe anemia initially discovered February 2007 (hemoglobin 6.7). Bone marrow biopsy April 2007 nondiagnostic. Etiology multifactorial - in part due to iron deficiency from GI bleeding, in part due to CRI. Shortly after initial presentation the patient received multiple blood transfusions, iron infusions, and EPO injections with resolution of her anemia. The patient developed recurrent anemia in January2019 due to an upper GI bleed from peptic ulcer disease. With appropriate management her anemia initially returned to baseline. However, since 2020 her anemia has worsened as a result of chronic renal insufficiency and the patient became symptomatic with severe fatigue. For the treatment of renal failure induced anemia the patient was started on Aranesp 11/29/2021, with plans to give as needed to maintain hemoglobin 10-11. Since starting Aranesp the patient has clinically improved and her CBC has improved significantly. Her hemoglobin today is <11, therefore she will receive Aranesp. The patient will return in 8 weeks for follow-up and labs, with Aranesp as needed if hemoglobin less than 11. 2. 280.9 History of iron deficiency The patient has a long history of intermittent iron deficiency secondary to GI bleeding. Previous GI evaluation revealed evidence of gastric bleeding from a hiatal hernia. In January 2019 she was foundto have peptic ulcer disease with bleeding. For the treatment of iron deficiency she has received iron supplements in the past. Current iron stores are normal. We will continue to monitor her iron stores, and replete with oral or IV iron as indicated if iron deficiency recurs. 3. 585.9 Chronic renal insufficiency The patient has a long history of renal insufficiency, worsening since 2020. Baseline creatinine approximately 2. She will continue management per PCP/nephrology. Today the patient had questions as to whether the COVID booster might affect her renal function. I suggested she ask her pulmonologist intensivist (Dr. Amin) for his recommendations. 4. 555.9 Crohn's disease Currently stable. Continue management per PCP/gastroenterology. 5. Osteoporosis The patient has been on Prolia every 6 months since September 2016, currently given at [facility].. Continue management per PCP. Atif Yousif MD CC: Dr. Amin documented in [facility] encounterF[facility] NoteHOSPITAL REGULATIONS: All Positive and Important Negative Findings Shall Be Recorded Date of Consultation: 06/20/2022 Attending Physician: Alex Lloyd D.O. Consulting Physician: Mikey Holden M.D. CHIEF COMPLAINT: Low back and right leg pain. HISTORY OF PRESENT ILLNESS: This is an 82-year-old female seen for a chief complaint of low back and right leg pain. She rates her symptoms currently as a 7/10. She reports that the back pain is pretty constant but she is having more pain going down the front of her right leg past the knee. she reports the pain is constant but is worse with activity. She is using [place] twice a day. She states it is helpful and denies side effects. She denies new neurologic symptoms or issues with bladder or bowel control. She got the MRI that we had ordered and is here to go over the results. Her past medical, social, family history along with medications and allergies is available and was reviewed. PHYSICAL EXAMINATION: General: She is a pleasant white female. Vital signs including blood pressure, heart rate and respirations are stable. Head: Head is normocephalic and external ears are normal. Neck: Neck is supple with no lesions. Cardiovascular: No signs of poor perfusion, no peripheral edema. Respiratory: Breathing is unlabored. There is no wheezing present. Abdomen: Abdomen is soft, nondistended. Back: There is bilateral lumbar tenderness. Musculoskeletal: Strength is 5/5 with the exception of 4/5 with right hip flexion, right knee extension, right knee flexion and 3/5 bilateral foot and great toe dorsiflexion. She has a positive straight leg raise on the left side. Neurologic: Sensation is intact throughout. Her reflexes are diminished but symmetric. Psychiatric: Affect is appropriate. She is alert and oriented. ASSESSMENT: This is an 82-year-old female seen for a chief complaint of low back and right leg pain. Her signs and symptoms are consistent with lumbosacral radiculopathy, lumbosacral spondylosis, lumbar stenosis with neurogenic claudication and lumbar scoliosis. I reviewed her lumbar MRI which is notable for severe multilevel degenerative changes but most significantly she has severe central stenosis at L3-L4 and severe right-sided neural foraminal stenosis at the same level which would correspond to the L3 and L4 nerve roots which is where she is having the symptoms. I reviewed an [place] [facility] Rx Report on her which is appropriate. Narcan was offered and was declined. PLAN: I addressed options with her and I will continue her current medication regimen as it is for the time being since it is providing her with enough symptom relief for her maintain her activities of daily living. If the radicular pain continues to bother her, we will proceed with a right L3 and L4 transforaminal epidural steroid injection. I went over the pros and cons of this plan and she wasin agreement with it. I will see her for followup in two months or sooner if needed. I advised her with regard to some home exercises in the interim. Mikey Holden M.D. Dictated: 06/20/2022 [id number] Transcribed: 06/21/2022 cc:Alex Lloyd D.O.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 She appears to be euvolemic. Continue current medications. May, Chronic kidney disea se (CKD), stage IV (severe) (ICD-10 - N18.4) She has CKD due to HTN. Her Serum Creatinine is 1.6 mg/dl. She has no evidence of proteinuria and hematuria on the UA so suspicion for RPGN is low. She has weakly positive ARLINE but unremarkable ANCA . She has unremarkable serologies for hepatitis and paraproteinemia. She has no evidence of obstructive uropathy on renal ultrasound. I have advised her to avoid the NSAIDs. She is nonimmune to the hepatitis B. May, Secondary hyperparathyroidism (ICD-10 - N25.81) MBD parameters including calcium, phosphorus, PTH and vitamin D are within the goal. May, Anemia of renal dise ase (ICD-10 - D63.1) Hemoglobin is within the goal. Continue to follow with the hematology. [facility] Other 08-02-2022 History general Narrative - Reported* Type Description Date Medical History ACUTE KIDNEY INJURY Medical History HYPERTENSIVE KIDNEY DISEASE STAGE 3 A CHRONIC KIDNEY DISEASE Medical History ANEMIA Medical History HISTORY OF GASTRIC ULCER Medical History PELVIS FRACTURE Medical History LOW BACK FRACTURES Surgical History ANTON 1970 Surgical History LAMINECTOMY Surgical History FORAMINOTMY L2-5 Surgical History CARARACTS 2009 Surgical History COLONOSCOPY 01/2019 Surgical History LEFT TKA 01/2009 Surgical History EGD 04/2017 Hospitalization History SEE ABOVE Hospitalization History ELEVATED POTASSIUM LEVEL 08/2021 [facility] Other 07-20-2022 NoteHOSPITAL REGULATIONS: All Positive and Important Negative Findings Shall Be Recorded Date of Consultation: 05/02/2022 Attending Physician:Alex Lloyd D.O. Consulting Physician: Mikey Holden M.D. CHIEF COMPLAINT: Low back and right leg pain. HISTORY OF PRESENT ILLNESS: This is an 82-year-old female seen for a chief complaint of low back and right leg pain. She rates her symptoms as a 6-8/10 and describes it as a sharp, aching sensation. She reports that since her last visit her symptoms have remained persistent. She has talked things over with her primary care doctor as well as her , and she is going to go ahead and get the MRI that we had ordered last visit. She still has some groin pain as well but has not yet seen Dr. Daniels. She states that the pain is constant, but it is worse when she tries to weightbear. She also feels as though the right hip is still weak. She is using the [place] twice a day and reports it is still keeping her baseline symptoms under control, and she denies side effects. Her past medical, social, family history along with medications and allergies is available and was reviewed. PHYSICAL EXAMINATION: General: She is a pleasant white female. Vital signs including blood pressure, heart rate, and respirations are stable. Head: Head is normocephalic and external ears are normal. Neck: Neck is supple with no lesions. Cardiovascular: No signs of poor perfusion, no peripheral edema. Lungs: Breathing is unlabored and there is no wheezing present. Abdomen: Abdomen is soft and nondistended. Back: There is right greater than left lower lumbar and sacroiliac tenderness. Musculoskeletal: Strength is 5/5 in the upper extremities but 4/5 in the lower extremities. She haspain with flexion of the right hip. Neurologic: Sensation is intact throughout. Her reflexes are diminished but symmetric. Psychiatric: Affect is appropriate and she is alert and oriented. ASSESSMENT: This is a 52-year-old female seen for a chief complaint of low back and leg pain. Her signs and symptoms are consistent with lumbosacral radiculopathy, lumbar stenosis with neurogenic claudication, and a lumbar compression fracture and pelvic fractures. I reviewed an [place] [facility] Rx Re port on her, which was appropriate. Narcan was offered and was declined. PLAN: I addressed the options with her, and I will continue her current medications as they are forthe time being since they are providing her with baseline symptom relief without side effects and she has been compliant with the treatment regimen. We will go ahead and have her get the MRI next week. Depending on the results, we will consider an epidural injection. I also strongly encouraged her to see Dr. Daniels regarding the pelvic fractures. I will see her for followup after the MRI for a repeat evaluation. Mikey Holden M.D. ca Dictated: 05/02/2022 [id number] Transcribed: 05/04/2022 cc:Alex Lloyd D.O.[facility] CenterComment on above:Result Comment: Electronically Signed By: Navin MCLEAN, Mikey\.br\Date and Time Signed: 05/08/22 16:53 [id number] History of Present illness Narrative* Atif Yousif MD - 04/15/2022 8:36 AM EDT PATIENT NAME: Henrietta Magana DATE: 04/15/2022 PRIMARY CARE PHYSICIAN: Dr. Alex Lloyd OTHER PHYSICIANS: Dr. Holden (pain management), Dr. Flores, Dr. Amin Portions of this encounter note have been copied from the note from 2022 and has been updated where appropriate, and reflect my current medical decision making from today. CC: This is an 82 year old female with a history of chronic anemia, seen for scheduled follow-up. INTERIM HISTORY: The patient returns for scheduled follow-up. Since her last visit here she has hadno significant medical changes. She denies any significant bleeding or bruising. She remains on Aranesp as needed for anemia, and is tolerated well. Since starting Aranesp she has felt much better with resolution of her fatigue and weakness. MEDICATIONS: oxyCODONE IR (ROXICODONE) 5 mg immediate release tablet TAKE 1 TABLET BY MOUTH TWICE A DAY NEEDED FOR PAIN calcium carbonate/vitamin D3 (CALCIUM 600 + D ORAL) Take by mouth. famotidine (PEPCID) 20 mg tablet Take by mouth twice daily. amLODIPine (NORVASC) 5 mg tablet fenofibrate (LOFIBRA) 134 mg capsule Take 134 mg by mouth daily at bedtime. shrun-7y-hez-epa-fish oil 300-1,000 mg cpDR Take by mouth. carvedilol (COREG) 6.25 mg tablet Take 1 tablet by mouth twice daily. gabapentin (NEURONTIN) 100 mg capsule Take 300 mg by mouth three times daily. ALLERGIES: Sulfa (Sulfonamide Antibiotics) and Venofer [Iron Sucrose] PAST MEDICAL HISTORY: PAST MEDICAL HISTORY Diagnosis Date Anemia Arthritis Chronic renal insufficiency Crohn's disease (HCC) Degenerative joint disease GERD (gastroesophageal reflux disease) Hyperlipidemia Hypertension Iron deficiency Osteoarthritis PAST SURGICAL HISTORY: PAST SURGICAL HISTORY Procedure Laterality Date BACK SURGERY HX 2004 Dr. Guillen CATARACT SURGERY, COMPLEX COLONOSCOPY EGD HYSTERECTOMY HX KNEE SURGERY HX 2009 TKR. Left REVIEW OF SYSTEMS: General: No weight loss, malaise or fevers. Increasing fatigue. HEENT: Negative for frequent or significant headaches. No changes in hearing or vision, no nose bleeds or other nasal problems. Respiratory: Negative for cough, wheezing or shortness of breath. Cardiovascular: Negative for chest pain, leg swelling or palpitations. GI: Negative for abdominal discomfort, blood in stools or black stools or change in bowel habits. : No history of dysuria, frequency or incontinence. Musculoskeletal: Positive for joint pain and swelling and muscle pain- chronic. Skin: Negative for lesions, rash, and itching. Hematology/Lymphology: Negative for prolonged bleeding, bruising easily or swollen nodes. Neuro: No history of headaches, syncope, paralysis, seizures or tremors. PHYSICAL EXAM: Vitals: BP 150/75 Pulse 83 Temp 36.6 C (97.8 F) (Temporal) Resp 16 Ht 152.4 cm (5') Wt 72.1 kg (159 lb) SpO2 93% BMI 31.05 kg/m Exam limited to gross visualization where appropriate due to COVID-19. Gen.: This is an age-appropriate patient in no acute distress. Head: Appears atraumatic with no visible lesions. Eyes: Pupils equally round and reactive to light, extraocular muscles are intact. Neck: Supple. Mouth: Masked. Respiratory: Appears to be respiring comfortably. Neurologic: Nonfocal to gross visualization. Alert and oriented 3. Psychiatric: No evidence of inappropriate anxiety or depression. Skin: Visible areas of skin without rash, lesions, wounds or petechiae. LABORATORY DATA: Hemoglobin (g/dL) Date Value 04/15/2022 10.6 12/13/2021 11.6 Hematocrit (%) Date Value 04/15/2022 32.5 12/13/2021 37.0 WBC (k/uL) Date Value 04/15/2022 6.10 12/13/2021 4.90 Platelet Count (k/uL) Date Value 04/15/2022 230 12/13/2021 213 ASSESSMENT/PLAN: 1. 285.9 Anemia (primary diagnosis) Severe anemia initially discovered February 2007 (hemoglobin 6.7). Bone marrow biopsy April 2007 nondiagnostic. Etiology multifactorial - in part due to iron deficiency from GI bleeding, in part due to CRI. Shortly after initial presentation the patient received multiple blood transfusions, iron infusions, and EPO injections with resolution of her anemia. The patient developed recurrent anemia in January2019 due to an upper GI bleed from peptic ulcer disease. With appropriate management her anemia initially returned to baseline. However, since 2020 her anemia has worsened as a result of chronic renal insufficiency and the patient became symptomatic with severe fatigue. For the treatment of renal failure induced anemia the patient was started on Aranesp 11/29/2021, with plans to give as needed to maintain hemoglobin 10-11. Since starting Aranesp the patient has clinically improved and her CBC has improved significantly. Her hemoglobin today is <11, therefore she will receive Aranesp. We will check labs in 6 weeks, and give Aranesp as needed. I will see her back in 12 weeks for follow-up. 2. 280.9 History of iron deficiency The patient has a long history of intermittent iron deficiency secondary to GI bleeding. Previous GI evaluation revealed evidence of gastric bleeding from a hiatal hernia. In January 2019 she was foundto have peptic ulcer disease with bleeding. For the treatment of iron deficiency she has received iron supplements in the past. Current iron stores are normal. We will continue to monitor her iron stores, and replete with oral or IV iron as indicated if iron deficiency recurs. 3. 585.9 Chronic renal insufficiency The patient has a long history of renal insufficiency, worsening since 2020. Baseline creatinine approximately 2. She will continue management per PCP/nephrology. 4. 555.9 Crohn's disease Currently stable. Continue management per PCP/gastroenterology. 5. Osteoporosis The patient has been on Prolia every 6 months since September 2016, currently given at [facility].. Continue management per PCP. Atif Yousif MD CC: Dr. Amin [facility] NoteHOSPITAL REGULATIONS: All Positive and Important Negative Findings Shall Be Recorded Date of Consultation: 02/21/2022 Attending Physician: Alex Lloyd D.O. Consulting Physician: Mikey Holden M.D. CHIEF COMPLAINT: Low back and right leg pain. HISTORY OF PRESENT ILLNESS: This is an 82 year old female seen for a chief complaint of low back and right leg pain. She rates her symptoms as an 8/10. She reports since her last visit her symptoms have been persistent and unchanged. She still has pain in the right thigh although it is a little bitworse. She reports the weakness is the same. She had x-rays done which showed pelvic fractures as well as some compression fractures. I had suggested a magnetic resonance imaging but she wanted to talk to me first. She is using the [place] which does help. she denies side effects. She denies new neurologic symptoms or issues with bladder or bowel control. PAST MEDICAL, PSYCHOSOCIAL, FAMILY HISTORY, ALONG WITH MEDICATIONS AND ALLERGIES is available and was reviewed. PHYSICAL EXAMINATION: General: She is a pleasant white female. Vital signs: Vital signs including blood pressure, heart rate and respirations are stable. Head: Head is normocephalic and external ears are normal. Neck: Neck is supple with no lesions. Cardiovascular: No signs of poor perfusion. No peripheral edema. Lungs: Breathing is unlabored. There is no wheezing present. Abdomen: Abdomen is soft and non-distended. Back: There is severe right-sided lower lumbar and sacroiliac tenderness. She has a positive Derek's sign, Gaenslen's test and thigh thrust test on the right. Musculoskeletal: Strength is 5/5 with the exception of 3+/5 with flexion of the right hip. Neurologic: Sensation is intact. Reflexes are diminished but symmetric. Psychiatric: Affect is appropriate and she is alert and oriented. ASSESSMENT:This is an 82 year old female seen for a chief complaint of low back and right leg pain.Her signs and symptoms are due to lumbosacral radiculopathy and lumbar stenosis with neurogenic claudication. I reviewed an [place] [employer] Pres[employer] Reporting System report on her which was appropriate. Narcan was offered and was declined. I reviewed her x-rays which was notable for compression fractures in the lumbar spine as well as superior and inferior pelvic fractures. PLAN:I addressed options with her. With regard to the pelvic fractures I recommended an orthopedic consultation. For the lumbar fractures I recommended a lumbar magnetic resonance imaging. She wants to run it by her primary care doctor first so if she decides she wants to move forward with those she will let us know. I will continue the [place] at the same dose for the time being since it is providing her with adequate symptom relief without side effects and she has been compliant with her treatment regimen. I will see her for follow up in two months or sooner if needed. Mikey Holden M.D. rolan Dictated: 02/21/2022 [id number] Transcribed: 02/21/2022 cc:Alex Lloyd D.O.[facility], Cancer CenterComment on above:Result Comment: Electronically Signed By: Navin MCLEAN, Mikey\.br\Date and Time Signed: 02/22/22 21:49 [id number] History of Present illness Narrative* Atif Yousif MD - 2022 11:43 AM EDT PATIENT NAME: Henrietta Magana DATE: 2022 PRIMARY CARE PHYSICIAN: Dr. Alex Lloyd OTHER PHYSICIANS: Dr. Holden (pain management), Dr. Flores, Dr. Amin Portions of this encounter note have been copied from the note from 12/27/2021 and has been updated where appropriate, and reflect my current medical decision making from today. CC: This is an 81 year old female with a history of chronic anemia, seen for scheduled follow-up. INTERIM HISTORY: The patient returns for scheduled follow-up. Since her last visit here she has hadno significant medical changes. She denies any significant bleeding or bruising, and no signs of GIbleeding. She has ongoing fatigue, but states today that this has improved significantly since she started Aranesp. MEDICATIONS: oxyCODONE IR (ROXICODONE) 5 mg immediate release tablet TAKE 1 TABLET BY MOUTH TWICE A DAY NEEDED FOR PAIN calcium carbonate/vitamin D3 (CALCIUM 600 + D ORAL) Take by mouth. famotidine (PEPCID) 20 mg tablet Take by mouth twice daily. amLODIPine (NORVASC) 5 mg tablet fenofibrate (LOFIBRA) 134 mg capsule Take 134 mg by mouth daily at bedtime. [id number]-fish oil 300-1,000 mg cpDR Take by mouth. carvedilol (COREG) 6.25 mg tablet Take 1 tablet by mouth twice daily. gabapentin (NEURONTIN) 100 mg capsule Take 300 mg by mouth three times daily. ALLERGIES: Sulfa (Sulfonamide Antibiotics) and Venofer [Iron Sucrose] PAST MEDICAL HISTORY: PAST MEDICAL HISTORY Diagnosis Date Anemia Arthritis Chronic renal insufficiency Crohn's disease (HCC) Degenerative joint disease GERD (gastroesophageal reflux disease) Hyperlipidemia Hypertension Iron deficiency Osteoarthritis PAST SURGICAL HISTORY: PAST SURGICAL HISTORY Procedure Laterality Date BACK SURGERY HX 2004 Dr. Guillen CATARACT SURGERY, COMPLEX COLONOSCOPY EGD HYSTERECTOMY HX KNEE SURGERY HX 2009 TKR. Left REVIEW OF SYSTEMS: General: No weight loss, malaise or fevers. Increasing fatigue. HEENT: Negative for frequent or significant headaches. No changes in hearing or vision, no nose bleeds or other nasal problems. Respiratory: Negative for cough, wheezing or shortness of breath. Cardiovascular: Negative for chest pain, leg swelling or palpitations. GI: Negative for abdominal discomfort, blood in stools or black stools or change in bowel habits. : No history of dysuria, frequency or incontinence. Musculoskeletal: Positive for joint pain and swelling and muscle pain- chronic. Skin: Negative for lesions, rash, and itching. Hematology/Lymphology: Negative for prolonged bleeding, bruising easily or swollen nodes. Neuro: No history of headaches, syncope, paralysis, seizures or tremors. PHYSICAL EXAM: Vitals: BP 152/90 Pulse 81 Temp 36.9 C (98.4 F) (Temporal) Resp 16 Ht 152.4 cm (5') SpO2 96% BMI 31.37 kg/m Exam limited to gross visualization where appropriate due to COVID-19. Gen.: This is an age-appropriate patient in no acute distress. Head: Appears atraumatic with no visible lesions. Eyes: Pupils equally round and reactive to light, extraocular muscles are intact. Neck: Supple. Mouth: Masked. Respiratory: Appears to be respiring comfortably. Neurologic: Nonfocal to gross visualization. Alert and oriented 3. Psychiatric: No evidence of inappropriate anxiety or depression. Skin: Visible areas of skin without rash, lesions, wounds or petechiae. LABORATORY DATA: Hemoglobin (g/dL) Date Value 2022 11.1 12/13/2021 11.6 Hematocrit (%) Date Value 2022 33.9 12/13/2021 37.0 WBC (k/uL) Date Value 2022 6.85 12/13/2021 4.90 Platelet Count (k/uL) Date Value 2022 204 12/13/2021 213 ASSESSMENT/PLAN: 1. 285.9 Anemia (primary diagnosis) Severe anemia initially discovered February 2007 (hemoglobin 6.7). Bone marrow biopsy April 2007 nondiagnostic. Etiology multifactorial - in part due to iron deficiency from GI bleeding, in part due to CRI. Shortly after initial presentation the patient received multiple blood transfusions, iron infusions, and EPO injections with resolution of her anemia. The patient developed recurrent anemia in January2019 due to an upper GI bleed from peptic ulcer disease. With appropriate management her anemia initially returned to baseline. However, since 2020 her anemia has worsened as a result of chronic renal insufficiency and the patient became symptomatic with severe fatigue. For the treatment of renal failure induced anemia the patient was started on Aranesp 11/29/2021, with plans to give as needed to maintain hemoglobin 10-11. Her hemoglobin today is >11, therefore she will not receive Aranesp. We will check labs in 3 weeks, and give Aranesp if hemoglobin less than 11. I will see her back in 9 weeks for follow-up. 2. 280.9 History of iron deficiency The patient has a long history of intermittent iron deficiency secondary to GI bleeding. Previous GI evaluation revealed evidence of gastric bleeding from a hiatal hernia. In January 2019 she was foundto have peptic ulcer disease with bleeding. For the treatment of iron deficiency she has received iron supplements in the past. Current iron stores are normal. We will continue to monitor her iron stores, and replete with oral or IV iron as indicated if iron deficiency recurs. 3. 585.9 Chronic renal insufficiency The patient has a long history of renal insufficiency, worsening since 2020. Baseline creatinine approximately 2. She will continue management per PCP/nephrology. 4. 555.9 Crohn's disease Currently stable. Continue management per PCP/gastroenterology. 5. Osteoporosis The patient has been on Prolia every 6 months since September 2016, currently given at [facility].. Continue management per PCP. Atif Yousif MD CC: Dr. 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 She appears to be euvolemic. Continue current medications. Dec, Chronic kidney disea se (CKD), stage IV (severe) (ICD-10 - N18.4) She has CKD due to HTN. Her Serum Creatinine is 2.0 mg/dl. Her renal function has declined after NESHA. She has no evidence of proteinuria and hematuria on the UA so suspicion for RPGN is low. She has weakly positive ARLINE but unremarkable ANCA . She has unremarkable serologies for hepatitis and paraproteinemia. She has no evidence of obstructive uropathy on renal ultrasound. I have advised her to avoid the NSAIDs. She is nonimmune to the hepatitis B. Dec, Secondary hyperparathyroidism (ICD-10 - N25.81) MBD parameters including calcium, phosphorus, PTH and vitamin D are within the goal. Dec, Anemia of renal dise ase (ICD-10 - D63.1) Hemoglobin is within the goal. Continue to follow with the hematology. [place] [employer] Other [id number] Evaluation note* Encounter Date Diagnosis Assessment Notes Treatment Notes Treatment Clinical Notes Sep, NESHA (acute kidney injury) (ICD-10 - N17.9) She likely has ATN in the setting of blood loss anemia. Renal function is slowly improving but not still back to the baseline yet. She has no evidence of proteinuria and hematuria on the UA so suspicion for RPGN is low. She has weakly positive ARLINE but unremarkable ANCA . She has unremarkable serologies for hepatitis and paraproteinemia. She has no evidence of obstructive uropathy on renal ultrasound. I have advised her to avoid the NSAIDs. She is nonimmune to the hepatitis B. Sep, Anemia (ICD-10 - D64.9) Hemoglobin is low. Continue to follow with the hematology. Sep, Chronic kidney disea se, stage III (moderate) (ICD-10 - N18.30) She is a chronic kidney disease due to longstanding hypertension baseline creatinine around 1.3 mg/dL. 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 She appears to be euvolemic. Continue current medications. Sep, Secondary hyperparathyroidism (ICD-10 - N25.81) MBD parameters including calcium, phosphorus, PTH and vitamin D are within the goal. [employer] Other Evaluation + Plan note Future Appointments Appointment Date:06/20/2022 02:00:00 PM Scheduled Provider:Mikey Holden MD Location:[facility] Future Appointments Appointment Date:08/29/2022 01:00:00 PM Scheduled Provider:Mikey Holden MD Location:[facility] App[facility]ment Type[facility] Future Appointments Appointment Date:12/12/2022 09:15:00 AM Scheduled Provider:Mikey Holden MD Location:[facility] App[facility]ment Type[facility] Diagnosis Anemia of chronic renal failure, stage 3b (HCC)- Primary Chronic renal impairment, stage 3b (HCC) 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 Essential hypertension Unspecified essential hypertension [facility]* Diagnosis Anemia of chronic renal failure, stage 3b (HCC)- Primary [facility]* Diagnosis Iron deficiency- Primary Iron deficiency anemia, unspecified [facility]* Diagnosis Anemia of chronic renal failure, stage 3b (HCC)- Primary [facility]* Diagnosis Anemia of chronic renal failure, stage 3b (HCC)- Primary Chronic renal impairment, stage 3b (HCC) 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 Essential hypertension Unspecified essential hypertension documented [facility] this encounter [facility] noteNo InformationNort [employer] Other Evaluation note* Diagnosis Anemia of chronic renal failure, stage 3b (HCC)- Primary Chronic renal impairment, stage 3b (HCC) Iron 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 to blood loss (chronic) [facility] Diagnosis Anemia of chronic renal failure, stage 3b (HCC)- Primary [facility]* Diagnosis Anemia of chronic renal failure, stage 3b (HCC)- Primary 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 Essential hypertension Unspecified essential hypertension [facility]* Diagnosis Anemia of chronic renal failure, stage 3b (HCC)- Primary Chronic renal impairment, stage 3b (HCC) History of iron deficiency Personal history of diseases of blood and blood-forming organs documented [facility]* Diagnosis Anemia of chronic renal failure, stage 3b (HCC)- Primary Chronic renal impairment, stage 3b (HCC) History of iron deficiency Personal history of diseases of blood and blood-forming organs documented [facility]* Diagnosis Anemia of chronic renal failure, stage 3b (HCC)- Primary Chronic renal impairment, stage 3b (HCC) History of iron deficiency Personal history of diseases of blood and blood-forming organs Primary osteoarthritis involving multiple joints Essential hypertension Unspecified essential hypertension [facility]* Diagnosis Anemia of chronic renal failure, stage 3b (HCC)- Primary [facility]* Diagnosis Idiopathic progressive polyneuropathy- Primary Onychomycosis Dermatophytosis of nail Corns and callosities documented [facility] this encounter [facility] general Narrative - Reported* Type Description Date Medical History ACUTE KIDNEY INJURY Medical History HYPERTENSIVE KIDNEY DISEASE STAGE 3 A CHRONIC KIDNEY DISEASE Medical History ANEMIA Medical History HISTORY OF GASTRIC ULCER Surgical History ANTON 1970 Surgical History LAMINECTOMY Surgical History FORAMINOTMY L2-5 Surgical History CARARACTS 2008 Surgical History COLONOSCOPY 01/2019 Surgical History LEFT TKA 01/2009 Surgical History EGD 04/2017 Hospitalization History SEE ABOVE Hospitalization History ELEVATED POTASSIUM LEVEL 08/2021 [facility] Other History general Narrative - Reported* Type Description Date Medical History ACUTE KIDNEY INJURY Medical History HYPERTENSIVE KIDNEY DISEASE STAGE 3 A CHRONIC KIDNEY DISEASE Medical History ANEMIA Medical History HISTORY OF GASTRIC ULCER Medical History PELVIS FRACTURE Medical History LOW BACK FRACTURES Surgical History ANTON 1971 Surgical History LAMINECTOMY Surgical History FORAMINOTMY L2-5 Surgical History CARARACTS 2009 Surgical History COLONOSCOPY 01/2019 Surgical History LEFT TKA 01/2009 Surgical History EGD 04/2017 Hospitalization History SEE ABOVE Hospitalization History ELEVATED POTASSIUM LEVEL 08/2021 [facility] Other Hospital course Narrative No data available for this section [facility] No data available for this section [facility] No data available for this section [facility] Medications Administered Section Inactive Administered Medications - up to 3 most recent administrations Medication Order MAR Action Action Date Dose Rate Site Darbepoetin Song In Polysorbat 200 mcg injection (ARANESP) 200 mcg, SUBCUTANEOUS, ONCE, 1 dose, On Dilia 02/28/22 at 1500, Protect from light REFRIGERATE Given 02/28/2022 2:48 PM EDT 200 mcg Arm, Right Inactive Administered Medications - up to 3 most recent administrations Medication Order MAR Action Action Date Dose Rate Site Darbepoetin Song In Polysorbat 200 mcg injection (ARANESP) 200 mcg, SUBCUTANEOUS, ONCE, 1 dose, On Fri04/15/22 at 1600, Protect from light REFRIGERATE Given 04/15/2022 3:56 PM EDT 200 mcg Arm, Right Inactive Administered Medications - up to 3 most recent administrations Medication Order MAR Action Action Date Dose Rate Site Darbepoetin Song In Polysorbat 200 mcg injection (ARANESP) 200 mcg, SUBCUTANEOUS, ONCE, 1 dose, On Fri09/16/22 at 1530, Protect from light REFRIGERATE Given 09/16/2022 3:24 PM EST 200 mcg Arm, Left Inactive Administered Medications - up to 3 most recent administrations Medication Order MAR Action Action Date Dose Rate Site Darbepoetin Song In Polysorbat 200 mcg injection (ARANESP) 200 mcg, SUBCUTANEOUS, ONCE, 1 dose, On Fri12/25/22 at 1000, Protect from light REFRIGERATE Given 12/25/2022 10:00 AM EST 200 mcg Arm, Right Inactive Administered Medications - up to 3 most recent administrations Medication Order MAR Action Action Date Dose Rate Site Darbepoetin Song In Polysorbat 200 mcg injection (ARANESP) 200 mcg, SUBCUTANEOUS, ONCE, 1 dose, On Dilia 02/06/23 at 1000, Protect from light REFRIGERATE Given 02/06/2023 9:58 AM EDT 200 mcg Arm, Right Summary Purpose Family History No Family History Records FoundNo Family History Records FoundNo Family History Records FoundNo Family History Records Found Advance Directives No Advanced Directives Records FoundNo Advanced Directives Records FoundNo Advanced Directives Records FoundNo Advanced Directives Records Found Additional Source Comments Source Comments (unrecognize d section and content) In the event this informatio n is protected by the Federal Confidentiality of Alcohol and Drug Abuse Patient Records regulations: The Federal rules restrict any use of the information to criminally investigate or prosecute any alcohol or drug abuse patient.[facility] HospitalIn the event this information is protected by the Federal Confidentiality of Alcohol and Drug Abuse Patient Records regulations: The Federal rules restrict any use of the information to criminally investigate or prosecute any alcohol or drug abuse patient.[facility] HospitalIn the event this information is protected by the Federal Confidentiality of Alcohol and Drug Abuse Patient Records regulations: The Federal rules restrict any use of the information to criminally investigate or prosecute any alcohol or drug abuse patient.[facility] HospitalIn the event this information is protected by the Federal Confidentiality of Alcohol and Drug Abuse Patient Records regulations: The Federal rules restrict any use of the information to criminally investigate or prosecute any alcohol or drug abuse patient.[facility] the event this information is protected by the Federal Confidentiality of Alcohol and Drug Abuse Patient Records regulations: The Federal rules restrict any use of the information to criminally investigate or prosecute any alcohol or drug abuse patient.[facility]In the event this information is protected by the Federal Confidentiality of Alcohol and Drug Abuse Patient Records regulations: The Federal rules restrict any use of the information to criminally investigate or prosecute any alcohol or drug abuse patient.[facility]In the event this information is protected by the Federal Confidentiality of Alcohol and Drug Abuse Patient Records regulations: The Federal rules restrict any use of the information to criminally investigate or prosecute any alcohol or drug abuse patient.[facility]In the event this information is protected by the Federal Confidentiality of Alcohol and Drug Abuse Patient Records regulations: The Federal rules restrict any use of the information to criminally investigate or prosecute any alcohol or drug abuse patient.[facility]In the event this information is protected by the Federal Confidentiality of Alcohol and Drug Abuse Patient Records regulations: The Federal rules restrict any use of the information to criminally investigate or prosecute any alcohol or drug abuse patient.[facility]In the event this information is protected by the Federal Confidentiality of Alcohol and Drug Abuse Patient Records regulations: The Federal rules restrict any use of the information to criminally investigate or prosecute any alcohol or drug abuse patient.[facility]In the event this information is protected by the Federal Confidentiality of Alcohol and Drug Abuse Patient Records regulations: The Federal rules restrict any use of the information to criminally investigate or prosecute any alcohol or drug abuse patient.[facility]In the event this information is protected by the Federal Confidentiality of Alcohol and Drug Abuse Patient Records regulations: The Federal rules restrict any use of the information to criminally investigate or prosecute any alcohol or drug abuse patient.[facility] HospitalIn the event this information is protected by the Federal Confidentiality of Alcohol and Drug Abuse Patient Records regulations: The Federal rules restrict any use of the information to criminally investigate or prosecute any alcohol or drug abuse patient.[facility]In the event this information is protected by the Federal Confidentiality of Alcohol and Drug Abuse Patient Records regulations: The Federal rules restrict any use of the information to criminally investigate or prosecute any alcohol or drug abuse patient.[facility]In the event this information is protected by the Federal Confidentiality of Alcohol and Drug Abuse Patient Records regulations: The Federal rules restrict any use of the information to criminally investigate or prosecute any alcohol or drug abuse patient.[facility] HospitalIn the event this information is protected by the Federal Confidentiality of Alcohol and Drug Abuse Patient Records regulations: The Federal rules restrict any use of the information to criminally investigate or prosecute any alcohol or drug abuse patient.[facility] Reason for Visit (unrecogniz ed section and content) Reason Comments Anemia 1 month follow up Specialty Diagnoses / Procedures Referred By Contac t Referred To Contact Diagnoses Anemia of chronic renal failure, stage 3b (HCC) Atif Yousif MD [address] [place] [address] [place] [address] Noe Treat Fadi [address] [place] [address] Referral ID Status Reason Start Date Expiration Date V isits Requested Visits Authorized [id number] Authorized 10/30/2021 01/28/2022 99 99 Reason Comments Lab Orders Reason Comments Anemia Reason Comments Anemia 8 week follow up Specialty Diagnoses / Procedures Referred By Contaide t Referred To Contact Diagnoses Anemia of chronic renal failure, stage 3b (HCC) Procedures DARBEPOETIN SONG, NON-ESRD Atif Yousif MD [facility] [place] [address] Noe Treat Fadi [address] [place] [address] Referral ID Status Reason Start Date Expiration Date V isits Requested Visits Authorized [id number] Pending Review 10/30/2021 01/28/2022 99 99 Referral ID Status Reason Start Date Expiration Date Visits Requested Visits Authorized [id number] Additional Clinical Info Needed 10/30/2021 01/28/2022 99 99 Reason Comments Anemia 2 month follow up Reason Comments Anemia Follow up Referral ID Status Reason Start Date Expiration Date Visits Re quested Visits Authorized [id number] Closed 10/30/2021 01/28/2022 99 99 Reason Comments Orders Reason Comments Toenail Care Care Teams (unrecognized sec tion and content) Driver Messenger Relationship Specialty Start Date End Date Alex Lloyd, DO PCP - General Internal Medicine 10/07/12 Driver Messenger Relationship Specialty Start Date End Date Alex Lloyd, DO PCP - General Internal Medicine 10/07/12 Driver Messenger Relationship Specialty Start Date End Date Alex Lloyd DO PCP - General Internal Medicine 10/07/12 Driver Messenger Relationship Specialty Start Date End Date Alex Lloyd, DO PCP - General Internal Medicine 10/07/12 Driver Messenger Relationship Specialty Start Date End Date Alex Lloyd, DO PCP - General Internal Medicine 10/07/12 Driver Messenger Relationship Specialty Start Date End Date Alex Lloyd DO PCP - General Internal Medicine 10/07/12 Driver Messenger Relationship Specialty Start Date End Date Alxe Lloyd, DO PCP - General Internal Medicine 10/07/12 Driver Messenger Relationship Specialty Start Date End Date Alex Lloyd, DO PCP - General Internal Medicine 10/07/12 Driver Messenger Relationship Specialty Start Date End Date Alex Lloyd DO PCP - General Internal Medicine 10/07/12 Driver Messenger Relationship Specialty Start Date End Date Alex Lloyd DO PCP - General Internal Medicine 10/07/12 Driver Messenger Relationship Specialty Start Date End Date Alex Lloyd DO PCP - General Internal Medicine 10/07/12 Driver Messenger Relationship Specialty Start Date End Date Alex Lloyd DO PCP - General Internal Medicine 10/07/12 Driver Messenger Relationship Specialty Start Date End Date Alex Lloyd DO PCP - General Internal Medicine 10/07/12 Driver Messenger Relationship Specialty Start Date End Date Alex Lloyd MD [address] [place] [address] PCP - General Internal Medicine 06/06/23 Driver Messenger Relationship Specialty Start Date End Date Alex Lloyd MD [address] [place] [address] PCP - General Internal Medicine 06/06/23 INFORMATION SOURCE (unrecogn ized section and content) DATE CREATED AUTHOR 12/31/2022 [facility] DATE CREATED AUTHOR AUTHOR'S ORGANIZ ATION 03/05/2023 [facility] DATE CREATED AUTHOR AUTHOR'S ORGANIZ ATION 08/23/2023 [facility] DATE CREATED AUTHOR AUTHOR'S ORGANIZ ATION 11/28/2023 [facility] EPIC FOR RECORDS PERTAINING TO PATIENTS WHO ARE OR HAVE BEEN ENROLLED IN A CHEMICAL DEPENDENCY/SUBSTANCEABUSE PROGRAM, SOME INFORMATION MAY BE OMITTED. This clinical summary was aggregated from multiple sources. Caution should be exercised in using it in the provision of clinical care. This summary normalizes information from multiple sources, and as a consequence, information in this document may materially change the coding, format and clinical context of patient data. In addition, data may be omitted in some cases. CLINICAL DECISIONS SHOULD BE BASED ON THE PRIMARY CLINICAL RECORDS. [facility] [employer] [facility]. provides no warranty or guarantee of the accuracy or completeness of information in this document.
[2023-12-01 08:59] LABS: Hemoglobin 10.9 g/dL (12.0-16.0); Mean Corpuscular HGB Conc 32.1 g/dL (29.9-35.2); Mean Corpuscular Hemoglobin 33.7 pg (26.7-34.0); Mean Corpuscular Volume 105.3 fL (81.0-99.0); Mean Platelet Volume 8.9 fL (9.5-13.5); Platelet Count 194 10^3/uL (150-450); Red Blood Count 3.23 10^6/uL (4.20-5.40); Red Cell Distribution Width 12.6 % (11.0-15.0); White Blood Count 4.4 10^3/uL (4.0-11.0)
[2023-12-01 09:38] LABS: Albumin Level 3.1 g/dL (3.4-5.0); Anion Gap 9.6; BUN Creatinine Ratio 22.5; Calcium 9.5 mg/dL (8.5-10.1); Carbon Dioxide 29.7 mmol/L (21.0-32.0); Chloride 103 mmol/L (98-107); Estimated GFR (African America 37 (>=60); Estimated GFR (Non-African Ame 31 (>=60); Glucose 146 mg/dL (74-106); Phosphorus 4.1 mg/dL (2.6-4.7); Potassium 4.3 mmol/L (3.5-5.1); Sodium 138 mmol/L (136-145); Uric Acid 7.2 mg/dL (2.6-6.0)
[2023-12-01 11:01] LABS: Creatinine Urine Random 60.11 mg/dL (20.00-300.00); Protein Creatinine Ratio Urine 0.73; Total Protein Urine Random 43.9 mg/dL (<=11.9)
[2023-12-01 11:06] LABS: Bilirubin Urine NEGATIVE (NEGATIVE); Blood Urine SMALL (NEGATIVE); Color Urine YELLOW (YELLOW); Glucose Urine UA NEGATIVE (NEGATIVE); Ketones Urine NEGATIVE (NEGATIVE); Leukocyte Esterase Urine LARGE (NEGATIVE); Nitrite Urine POSITIVE (NEGATIVE); Protein Urine NEGATIVE (NEG/TRACE); Urobilinogen Urine 0.2 EU/dL (0.2-1.0)
[2023-12-01 11:10] LABS: Clarity Urine CLOUDY (CLEAR)
[2023-12-01 12:19] LABS: WBC Urine >100 #/HPF (NONE SEEN)
[2023-12-01 12:20] LABS: Bacteria Urine LARGE #/HPF (NONE SEEN); Mucus Urine NONE SEEN (NONE SEEN); Squamous Epithelial Cell Urine FEW #/LPF (NONE/RARE)
[2023-12-02 12:10] LABS: PTH, Intact 27 pg/mL (15-65)
== END 2023-12-01 08:26 | disposition home or self-care (01) ==
LOC: LAB 08:31
PROVIDERS: PCP Internal Medicine; Visit Provider Internal Medicine
DX: I12.9 Hypertensive chronic kidney disease with stage 1 through stage 4 chronic kidney disease, or unspecified chronic kidney disease (principal); N18.4 Chronic kidney disease, stage 4 (severe); N25.81 Secondary hyperparathyroidism of renal origin; D63.1 Anemia in chronic kidney disease; E79.0 Hyperuricemia without signs of inflammatory arthritis and tophaceous disease; E83.42 Hypomagnesemia
CPT/HCPCS: 36415; 80069; 81001; 82306; 82570; 83735; 83970; 84156; 84550; 85027

== ENCOUNTER 2023-12-19 09:47 | Outpatient (OUT) | payer MEDICARE, SELFPAY ==
--- OUTSIDE RECORDS SUMMARY | 2023-12-19 09:54 | XMS_ITS | CCD ---
Author Name Unknown Address [id number] [place] [address] Organization [facility] Care Team Providers Care Clinical Provider Trainer Name Role Phone Alex Lloyd DO Primary Care Provider Mir Amin Unavailable ALEX LLOYD Primary Care Physician [phone] Alex Lloyd DO Primary Care Provider Alex [...] Holden Admitting Unavailable ALEX LLOYD Referring Unavailable Navin, MD Jensen Admitting Unavailable ALEX LLOYD Referring Unavailable Mikey Holden Attending Unavailable Alex Lloyd Unavailable DR ALEX LLOYD Admitting Unavailable BALL, DR JOHNSON Attending Unavailable BALL, DR JOHNSON Primary Care Unavailable BALL, DR JOHNSON Primary Care Unavailable BALL, DR JOHNSON Admitting Unavailable BALL, DR JOHNSON Attending Unavailable BALL, DR JOHNSON Consulting Unavailable ZIEBER, DR MERRILL Yao Consulting Unavailable DINAH, DR JOHNSON Primary Care Unavailable DOLORES, MIR Admitting Unavailable DOLORES, MIR Attending Unavailable DOLORES, MIR Consulting Unavailable BALL, DR JOHNSON Primary Care Unavailable DOLORES, MIR Admitting Unavailable DOLORES, MIR Attending Unavailable DOLORESMIR Consulting Unavailable DINAH, DR JOHNSON Admitting Unavailable DINAH, DR JOHNSON Attending Unavailable BALL, DR JOHNSON Consulting Unavailable BALL, DR JOHNSON Primary Care Unavailable ZIEBER, DR MERRILL Yao Consulting Unavailable BALL, DR JOHNSON Primary Care Unavailable REQUEST, NONE LISTED Admitting Unavaila ble REQUEST, DR CANNON LISTED Attending Unavaila ble REQUEST, NONE LISTED Consulting Unavaila ble BALL, DR JOHNSON Primary Care Unavailable BALL, DR JOHNSON Admitting Unavailable BALL, DR JOHNSON Attending Unavailable BALL, DR JOHNSON Primary Care Unavailable BALL, DR JOHNSON Admitting Unavailable BALL, DR JOHNSON Attending Unavailable BALL, DR JOHNSON Consulting Unavailable ATIF YOUSIF Attending Unavailable ATIF YOUSIF R Referring Unavailable DINAH, ALEX E Primary Care Unavailable BALL, ALEX E Primary Care Unavailable KADE, ATIF R Referring Unavailable DINAH, ALEX Chaparro Primary Care Unavailable KADE, ATIF R Referring Unavailable KADE, ATIF R Referring Unavailable DINAH, ALEX Chaparro Primary Care Unavailable KADE, ATIF R Referring Unavailable ATIF YOUSIF Attending Unavailable DINAH, ALEX Chaparro Primary Care Unavailable DINAH, ALEX Chaparro Primary Care Unavailable ATIF YOUSIF Referring Unavailable DINAH, ALEX Chaparro Primary Care Unavailable ATIF YOUSIF R Referring Unavailable DINAH, ALEX Chaparro Primary Care Unavailable ATIF YOUSIF R Referring Unavailable DINAH, ALEX Chaparro Primary Care Unavailable ATIF YOUSIF Referring Unavailable MARANDA HOPE Attending Unavailable DINAH, ALEX E Primary Care Unavailable ATIF YOUSIF R Referring Unavailable DINAH, ALEX E Primary Care Unavailable KADE, ATIF R Referring Unavailable ATIF YOUSIF R Attending Unavailable DINAH, ALEX E Primary Care Unavailable KADE, ATIF R Referring Unavailable DINAH, ALEX E Primary Care Unavailable KADE, ATIF R Referring Unavailable DINAH, ALEX E Primary Care Unavailable ATIF YOUSIF R Referring Unavailable DINAH, ALEX E Primary Care Unavailable ATIF YOUSIF R Referring Unavailable DINAH, ALEX Krysta Primary Care Unavailable ATIF YOUSIF R Referring Unavailable ATIF YOUSIF Attending Unavailable DINAH, ALEX E Primary Care Unavailable ATIF YOUSIF R Referring Unavailable DINAH, ALEX E Primary Care Unavailable ATIF YOUSIF Referring Unavailable DINAH, ALEX Krysta Primary Care Unavailable CHANTAL CARNES Attending UnavailAlex Lyles MD Primary Care Provider Allergies Allergy Classification Reported Allergen(s) Allergy Type Date of Onset Reaction(s) Facility (17 sources) iron sucrose; Translations: [IRON SUCROSE] Drug Allergy 10-01-20 12 Unknown [facility] (20 sources) Sulfonamides (Antibiotic); Translations: [SULFA (SULFONAMIDE ANTIBIOTICS)] Drug Allergy 10-01-20 12 Unknown [facility] (20 sources) atorvastatin Drug Allergy 12-09-19 24 Unknown, Unknown Reaction [facility] (20 sources) Iron Drug Allergy 12-09-19 24 Unknown, Unknown Reaction [facility] (5 sources) sulfaSALAzine Drug Allergy Unknown [place] Other (20 sources) Tetracycline Drug Allergy 12-09-19 24 Unknown, Unknown Reaction [facility] (5 sources) iron polysaccharide; Translations: [iron polysaccharide] Drug Allergy Weal (disorder) [facility] (5 sources) Sulfamethoxazole; Translations: [sulfamethoxazole ] Drug Allergy swelling [facility] (2 sources) Iron Drug Allergy 03-29-20 16 [facility] (2 sources) Sulfonamides (Antibiotic) Drug allergy (disorder) 07-01-20 13 [facility] (4 sources) patient allergy list reviewed by nurse or physicia Propensity to adverse reactions 05-17-20 19 Comment:Done [place] Other (2 sources) ferrous sulfate Drug Allergy 06-04-20 23 [facility] (2 sources) Iron Drug Allergy 10-31-19 22 Hives [facility] (2 sources) iron sucrose Drug Allergy 10-01-20 12 Unknown [facility] (2 sources) Sulfanilamide Allergy to substance 06-04-20 23 [facility] Medications Current Medications Medication Drug Class(es) Dates Sig (Normalized) Sig (Original) acetaminophen 325 mg / HYDROcodone bitartrate 7.5 mg oral tablet (20 sources) Opioid Agonist Start: 12-09-2023 take 1 tablet by mouth three times daily as needed Hydrocodone-Aceta minophen Active 1 TAB PO Three times daily December 09, 2023 12:00am FreeTextSi tablet Orally three times daily, as needed; Note: Source Status: Refill; Refills: 0; Provider: Dinah Chaparro Start: 11-06-2023 take 1 tablet by milly th three [...] three times daily as needed for pain [place] 325 mg-7.5 mg oral tablet 1 tab(s) , Oral, TID as needed for pain, 90 tab(s), Refill(s) 0, [id number], 160, cm, 05/02/22 14:00:00 EDT, Height/Length Dosing, 72.5, kg, 05/02/22 14:00:00 EDT, Weight Dosing Start Date: 05/30/22 Status: Ordered Start: 04-16-2022 End: 05-16-2022 take 1 tablet by mouth three times daily as needed for pain [place] 325 mg-7.5 mg oral tablet 1 tab(s) [...] 3 TIMES A DAY NEEDED FOR PAIN amLODIPine 5 mg oral tablet (20 sources) Dihydropyridine Calcium Channel Juliet Start: take 1 tablet by mouth once daily Amlodipine Active 1 TAB PO Daily December 09, 2023 12:00am FreeTextSig: TAKE 1 TABLET BY MOUTH EVERY DAY; Note: Source Status: Continue; Provider: Dinah Johnson ( ) Start: 09-29-2021 amLODIPine (NO RVASC) 5 mg tablet amoxicillin 500 mg oral capsule (20 sources) Penicillin-class Antibacterial Start: 12-09-2023 Amoxicillin Active 2000 MG PO December 09, 2023 12:00am FreeTextSi capsule Orally before dental work; Note: Source Status: Taking; Provider: Dinah Johnson ( ) Amoxicillin 500 MG 4 capsule Orally before dental work Active Calcium + D3 600-800 MG-UNIT (20 sources) take 600-800 tablets by mouth once daily Calcium + D3 600-800 MG-UNIT 1 tablet with a meal Orally Once a day Active calcium carbonate 1500 mg oral tablet (1 source) Start: 12-09-2023 take 1 tablet by mouth once daily Calcium Carbonate (Calcium 600) 600 mg calcium (1,500 mg) tablet Active 600 MG PO Daily December 09, 2023 12:00am Calcium Carbonate-Vit D-Min (Calcium 600+D Plus Minerals) 600-400 MG-UNIT tablet (2 sources) Calcium Carbonate-Vit D-Min (Calcium 600+D Plus Minerals) 600-400 MG-UNIT tablet every 12 (twelve) hours. 0 Active Calcium Citrate / Vitamin D (4 sources) Start: 10-23-2016 calcium-vitamin D 1,200 mg, Oral, Daily, Refill(s) 0, 800 mg vitamin d 1200 mg calcium Start Date: 10/23/16 Status: Ordered carvedilol 6.25 mg oral tablet (20 sources) alpha-Adrenergic Juliet, beta-Adrenergic Juliet Start: 12-09-2023 take 1 tablet by mouth twice daily Carvedilol Active 1 TAB PO Twice daily December 09, 2023 12:00am FreeTextSig: TAKE 1 TABLET BY MOUTH TWICE A DAY; Note: Source Status: Continue; Provider: Dinah Johnson ( ) Start: 09-01-2012 take 1 tablet by milly th twice daily carvedilol (COREG) 6.25 mg tablet Take 1 tablet by mouth twice daily. 0 10/01/2012 Active Comment on above: Take 1 tablet by milly th twice daily. cholecalciferol 0.025 mg oral capsule (2 sources) Vitamin D take 1 capsule by mouth once daily cholecalciferol (KP Vitamin D) 25 MCG (1000 UT) capsule take 1 by Oral route every day Oral 0 Active 1 ml darbepoetin rosemary 0.025 mg/ml injection (1 source) Erythropoiesis-s timulating Agent Start: inject 25 ug by subcutaneous injection every week Darbepoetin Rosemary In Polysorbat (Aranesp (In Polysorbate)) 25 mcg/mL solution Active 25 MCG SUBCUT every week December 09, 2023 12:00am 1 ml denosumab 60 mg/ml prefilled syringe (15 sources) RANK Ligand Inhibitor Start: Denosumab (Prolia) 60 mg/mL syringe Active 60 MG SUBCUT EVERY 6 MONTHS December 09, 2023 12:00am FreeTextSig: as directed Subcutaneous q 6 mo; Note: Source Status: Continue; Provider: Dinah Chaparro Start: 03-18-2023 Prolia 60 MG/M L as directed Subcutaneous q 6 mo February, Active famotidine 20 mg oral tablet (20 sources) Histamine-2 Receptor Antagonist Start: 12-09-2023 take 1 tablet by mouth twice daily Famotidine Active 20 MG PO Twice daily December 09, 2023 12:00am FreeTextSig: TAKE 1 TABLET BY MOUTH TWICE A DAY; Note: Source Status: Continue; Provider: Dinah Johnson ( ) Start: 10-11-2021 famotidine (PE PCID) 20 mg tablet Take by mouth twice daily. 0 10/11/2021 Active famotidine (Pepc id) 20 MG tablet every 12 (twelve) hours. 0 Active Comment on above: Take by mouth twice daily. fenofibrate 134 mg oral capsule (20 sources) Peroxisome Proliferator Receptor alpha Agonist Start: take 1 capsule by mouth once daily Fenofibrate Micronized Active 134 MG PO Daily December 09, 2023 12:00am FreeTextSig: TAKE 1 CAPSULE BY MOUTH EVERY DAY; Note: Source Status: Continue; Provider: Dinah Johnson ( ) Start: 01-08-2018 take [address] [facility] once daily at bedtime fenofibrate (LOFIBRA) 134 mg capsule Take 134 mg by mouth daily at bedtime. 0 05/22/2019 Active fenofibrate (Tri glide) 160 MG tablet 1 (one) time each day at the same time. 0 Active Comment on above: Take 134 mg by mouth daily at bedtime. gabapentin 100 mg oral capsule (20 sources) Anti-epileptic Agent Start: 12-09-2023 take 1 capsule by mouth three times daily Gabapentin Active 100 MG PO Three times daily December 09, 2023 12:00am FreeTextSig: TAKE 1 CAPSULE BY MOUTH THREE TIMES A DAY; Note: Source Status: Continue; Provider: Dinah Johnson ( ) Start: 10-11-2021 take 1 capsule by mo uth three times daily gabapentin 100 mg Cap [...] mouth in the morning. 0 08/25/2023 Active [place] 3 1000 MG (20 sources) take 1 capsule by mouth twice daily [place] 3 1000 MG 1 capsule Orally twice day Active [place] 3 340 MG capsule delayed-release (2 sources) take 1 capsule by mouth every twelve hours [place] 3 340 MG capsule delayed-release 1 capsule every 12 (twelve) hours. 0 Active [place]-3 (4 sources) Start: 09-06-2014 take 300 mg by mouth twice daily [place]-3 300 mg, Oral, BID, Refill(s) 0, Prophylaxis Start Date: 09/06/14 Status: Ordered omega-3 acid ethyl esters (snf) 1000 mg oral capsule (1 source) Start: 12-09-2023 take 1 capsule by mouth once daily [place]-3 Acid Ethyl Esters Active 1 CAP PO Daily December 09, 2023 12:00am Completed/Discontinued Medications Medication Drug Class(es) Dates Sig (Normalized) Sig (Original) Calcium Carbonate / vitamin D3 (16 sources) calcium carbonate/vitamin D3 (CALCIUM 600 + D ORAL) Take by mouth. 0 Active Comment on above: Take by mouth. [id number]-fis h oil 300-1,000 mg cpDR (16 sources) izhto-[id number]-epa -f kameron oil 300-1,000 mg cpDR Take by mouth. 0 Active Comment on above: Take by mouth. oxyCODONE hydrochloride 5 mg oral tablet (11 sources) Opioid Agonist Start: 11-13-2021 End: 09-16-2022 take 1 tablet by mouth twice daily as needed for pain oxyCODONE IR (ROXICODONE) 5 mg immediate release tablet TAKE 1 TABLET BY MOUTH TWICE A DAY NEEDED FOR PAIN 0 11/13/2021 09/16/2022 Discontinued (Discontinued by another Health Care Provider) Comment on above: TAKE 1 TABLET BY MILLY TWICE A DAY NEEDED FOR PAIN Problems [...] hyperparathyroidism; Translations: [Secondary hyperparathyroidism of renal origin] 12-09-2023 Chronic Other diseases of kidney and ureters (7 sources) Secondary hyperparathyroidism of renal origin; Translations: [Secondary hyperparathyroidism (of renal origin)] Onset: 1 Resolved: 2 Chronic Other diseases [...] metabolic disorders (20 sources) Hypomagnesemia; Translations: [Hypomagnesemia] 12-09-2023 Chronic Other nutritional; endocrine; and metabolic disorders (3 sources) Hypomagnesemia; 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 Other nutritional; endocrine; and metabolic disorders [...] Episodic Other nutritional; endocrine; and metabolic disorders (3 sources) Hyperuricemia without signs of inflammatory arthritis and tophaceous disease; Translations: [Other abnormal blood chemistry] Episodic Other nutritional; endocrine; and metabolic disorders (4 sources) Overweight; Translations: [Overweight] Episodic Other nutritional; endocrine; and metabolic disorders (1 source) Hyperuricemia; Translations: [Hyperuricemia without signs of inflammatory arthritis and tophaceous disease] 12-09-2023 Episodic Other skin disorders (1 source) Callosity; [...] Test Name Value Interpretation Reference Range Facility No Panel Informationon 12-01 Parathyroid Hormone (Intact) 27 pg/mL [facility] Comment on above: Performed at: [place] [id number] Director: Rajendra Ramos PhD, Phone: [phone] Basic metabolic 2000 panelon 08-21-2023 Anion gap [Moles/Vol] 7 mmol/L Low 9-18 [facility] Comment on above: Order Comment: Speci men Type: BLOOD SPECIMENOrdering Facility: [facility] Address: [address] [place] [address] Performed By: #### 2 4321-2 ####[facility] [id number] [place] [address] Calcium [Mass/Vol] 10.4 mg/dL High 8.5-10.2 [facility] Comment on above: Order Comment: Speci men Type: BLOOD SPECIMENOrdering Facility: [facility] Address: [address] [place] [address] Performed By: #### 2 4321-2 ####[facility] [id number] [place] [address] Chloride [Moles/Vol] 100 mmol/L Normal 97-105 [facility] Comment on above: Order Comment: Speci men Type: BLOOD SPECIMENOrdering Facility: [facility] Address: [address] [place] [address] Performed By: #### 2 4321-2 ####[facility] [id number] [place] [address] CO2 [Moles/Vol] 29 mmol/L Normal 22-30 [facility] Comment on above: Order Comment: Speci men Type: BLOOD SPECIMENOrdering Facility: [facility] Address: [address] [place] [address] Performed By: #### 2 4321-2 ####[facility] [id number] [place] [address] Creatinine [Mass/Vol] 1.43 mg/dL High 0.58-0.96 [facility] Comment on above: Order Comment: Speci men Type: BLOOD SPECIMENOrdering Facility: [facility] Address: [address] [place] [address] Performed By: #### 2 4321-2 ####[facility] [id number] [place] [address] Creatinine and Glomerular filtration rate.predicted panel (S/P/Bld) 36 mL/min/1.73m??? Low >=60 [facility] Comment on above: Order Comment: Speci men Type: BLOOD SPECIMENOrdering Facility: [facility] Address: [address] [place] [address] Result Comment: Lady mated Glomerular Filtration Rate [...] By: #### 2 4321-2 ####[facility] [id number] [place] [address] Glucose [Mass/Vol] 213 mg/dL High 74-99 [facility] Comment on above: Order Comment: Speci men Type: BLOOD SPECIMENOrdering Facility: [facility] Address: [address] [place] [address] Result Comment: The [place] [employer] (ADA) provides guidance for cutoff [...] Standards of Medical Care in Diabetes 2016, [place] [employer]. Diabetes Care. 2016.39(Suppl 1). Performed By: #### 2 4321-2 ####[facility] [id number] [place] [address] Potassium [Moles/Vol] 4.7 mmol/L Normal 3.7-5.1 [facility] Comment on above: Order Comment: Speci men Type: BLOOD SPECIMENOrdering Facility: [facility] Address: [address] [place] [address] Performed By: #### 2 4321-2 ####[facility] [id number] [place] [address] Sodium [Moles/Vol] 136 mmol/L Normal 136-144 [facility] Comment on above: Order Comment: Speci men Type: BLOOD SPECIMENOrdering Facility: [facility] Address: [address] [place] [address] Performed By: #### 2 4321-2 ####[facility] [id number] [place] [address] Urea nitrogen [Mass/Vol] 34 mg/dL High 7-21 [facility] Comment on above: Order Comment: Speci men Type: BLOOD SPECIMENOrdering Facility: [facility] Address: [address] [place] [address] Performed By: #### 2 4321-2 ####[facility] [id number] [place] [address] CBC W Auto Differential pane l (Bld)on 08-21-2023 Basophils (Bld) [#/Vol] 0.03 10*3/uL Normal <0.11 [facility] Comment on above: Order Comment: Speci men Type: BLOOD SPECIMENOrdering Facility: [facility] Address: [address] [place] [address] Performed By: #### 5 7021-8 ####[facility] [id number] [place] [address] Basophils/100 WBC (Bld) 0.5 % Normal [facility] Comment on above: Order Comment: Speci men Type: BLOOD SPECIMENOrdering Facility: [facility] Address: [address] [place] [address] Performed By: #### 5 7021-8 ####[facility] [id number] [place] [address] Differential cell count method Nom (Bld) Auto Normal [facility] Comment on above: Order Comment: Speci men Type: BLOOD SPECIMENOrdering Facility: [facility] Address: [address] [place] [address] Performed By: #### 5 7021-8 ####[facility] [id number] [place] [address] Eosinophils (Bld) [#/Vol] 0.22 10*3/uL Normal <0.46 [facility] Comment on above: Order Comment: Speci men Type: BLOOD SPECIMENOrdering Facility: [facility] Address: [address] [place] [address] Performed By: #### 5 7021-8 ####[facility] [id number] [place] [address] Eosinophils/100 WBC (Bld) 4.0 % Normal [facility] Comment on above: Order Comment: Speci men Type: BLOOD SPECIMENOrdering Facility: [facility] Address: [address] [place] [address] Performed By: #### 5 7021-8 ####[facility] [id number] [place] [address] Erythrocyte distribution width (RBC) [Ratio] 12.7 % Normal 11.5-15.0 [facility] Comment on above: Order Comment: Speci men Type: BLOOD SPECIMENOrdering Facility: [facility] Address: [address] [place] [address] Performed By: #### 5 7021-8 ####[facility] [id number] [place] [address] Hematocrit (Bld) [Volume fraction] 36.2 % Normal 36.0-46.0 [facility] Comment on above: Order Comment: Speci men Type: BLOOD SPECIMENOrdering Facility: [facility] Address: [address] [place] [address] Performed By: #### 5 7021-8 ####[facility] [id number] [place] [address] Hemoglobin (Bld) [Mass/Vol] 12.0 g/dL Normal 11.5-15.5 [facility] Comment on above: Order Comment: Speci men Type: BLOOD SPECIMENOrdering Facility: [facility] Address: [address] [place] [address] Performed By: #### 5 7021-8 ####[facility] [id number] [place] [address] Immature granulocytes (Bld) [#/Vol] 10*3/uL Normal <0.10 [facility] Comment on above: Order Comment: Speci men Type: BLOOD SPECIMENOrdering Facility: [facility] Address: [address] [place] [address] Performed By: #### 5 7021-8 ####[facility] [id number] [place] [address] Immature granulocytes/100 WBC (Bld) 0.4 % Normal [facility] Comment on above: Order Comment: Speci men Type: BLOOD SPECIMENOrdering Facility: [facility] Address: [address] [place] [address] Performed By: #### 5 7021-8 ####[facility] [id number] [place] [address] Lymphocytes (Bld) [#/Vol] 0.99 10*3/uL Low 1.00-4.00 [facility] Comment on above: Order Comment: Speci men Type: BLOOD SPECIMENOrdering Facility: [facility] Address: [address] [place] [address] Performed By: #### 5 7021-8 ####[facility] [id number] [place] [address] Lymphocytes/100 WBC (Bld) 17.8 % Normal [facility] Comment on above: Order Comment: Speci men Type: BLOOD SPECIMENOrdering Facility: [facility] Address: [address] [place] [address] Performed By: #### 5 7021-8 ####[facility] [id number] [place] [address] MCH (RBC) [Entitic mass] 34.0 pg Normal 26.0-34.0 [facility] Comment on above: Order Comment: Speci men Type: BLOOD SPECIMENOrdering Facility: [facility] Address: [address] [place] [address] Performed By: #### 5 7021-8 ####[facility] [id number] [place] [address] MCHC (RBC) [Mass/Vol] 33.1 g/dL Normal 30.5-36.0 [facility] Comment on above: Order Comment: Speci men Type: BLOOD SPECIMENOrdering Facility: [facility] Address: [address] [place] [address] Performed By: #### 5 7021-8 ####[facility] [id number] [place] [address] MCV (RBC) [Entitic vol] 102.5 fL High 80.0-100.0 [facility] Comment on above: Order Comment: Speci men Type: BLOOD SPECIMENOrdering Facility: [facility] Address: [address] [place] [address] Performed By: #### 5 7021-8 ####[facility] [id number] [place] [address] Monocytes (Bld) [#/Vol] 0.45 10*3/uL Normal <0.87 [facility] Comment on above: Order Comment: Speci men Type: BLOOD SPECIMENOrdering Facility: [facility] Address: [address] [place] [address] Performed By: #### 5 7021-8 ####[facility] [id number] [place] [address] Monocytes/100 WBC (Bld) 8.1 % Normal [facility] Comment on above: Order Comment: Speci men Type: BLOOD SPECIMENOrdering Facility: [facility] Address: [address] [place] [address] Performed By: #### 5 7021-8 ####[facility] [id number] [place] [address] Neutrophils (Bld) [#/Vol] 3.84 10*3/uL Normal 1.45-7.50 [facility] Comment on above: Order Comment: Speci men Type: BLOOD SPECIMENOrdering Facility: [facility] Address: [address] [place] [address] Performed By: #### 5 7021-8 ####[facility] [id number] [place] [address] Neutrophils/100 WBC (Bld) 69.2 % Normal [facility] Comment on above: Order Comment: Speci men Type: BLOOD SPECIMENOrdering Facility: [facility] Address: [address] [place] [address] Performed By: #### 5 7021-8 ####[facility] [id number] [place] [address] Nucleated RBC (Bld) [#/Vol] 10*3/uL Normal <0.01 [facility] Comment on above: Order Comment: Speci men Type: BLOOD SPECIMENOrdering Facility: [facility] Address: [address] [place] [address] Performed By: #### 5 7021-8 ####[facility] [id number] [place] [address] Nucleated RBC/100 WBC (Bld) [Ratio] 0.0 /100 WBC Normal [facility] Comment on above: Order Comment: Speci men Type: BLOOD SPECIMENOrdering Facility: [facility] Address: [address] [place] [address] Performed By: #### 5 7021-8 ####[facility] [id number] [place] [address] Platelet mean volume (Bld) [Entitic vol] 9.0 fL Normal 9.0-12.7 [facility] Comment on above: Order Comment: Speci men Type: BLOOD SPECIMENOrdering Facility: [facility] Address: [address] [place] [address] Performed By: #### 5 7021-8 ####[facility] [id number] [place] [address] Platelets (Bld) [#/Vol] 223 10*3/uL Normal 150-400 [facility] Comment on above: Order Comment: Speci men Type: BLOOD SPECIMENOrdering Facility: [facility] Address: [address] [place] [address] Performed By: #### 5 7021-8 ####[facility] LABCLIA [id number] [place] [address] RBC (Bld) [#/Vol] 3.53 10*6/uL Low 3.90-5.20 [facility] Comment on above: Order Comment: Speci men Type: BLOOD SPECIMENOrdering Facility: [facility] Address: [place] [address] Performed By: #### 5 7021-8 ####[facility] LABIA [id number] [place] [address] WBC (Bld) [#/Vol] 5.55 10*3/uL Normal 3.70-11.00 [facility] Comment on above: Order Comment: Speci men Type: BLOOD SPECIMENOrdering Facility: [facility] Address: [place] [address] Performed By: #### 5 7021-8 ####[facility] LABIA [id number] [place] [address] CNOVSPon 08-21-2023 CNOVSP Visit (SP) Office (HEMASA) HENRIETTA MAGANA ([id number]) 1940 F Date Time Provider Department 08/21/23 [...] 134 mg by mouth daily at bedtime. rqxmk-4u-xgf-epa-fish oil 300-1,000 mg cpDR Take by mouth. [...] 11/29/2021, with (more content not included)... Normal [facility] Basic metabolic 2000 panelon 06-26-2023 Anion gap [Moles/Vol] 11 mmol/L Normal 9-18 [facility] Comment on above: Order Comment: Speci men Type: BLOOD SPECIMENOrdering Facility: [facility] Address: [address] [place] [address] [place] [address] Performed By: #### 2 4321-2 ####[facility] LABCLIA [id number] [place] [address] Calcium [Mass/Vol] 9.4 mg/dL Normal 8.5-10.2 [facility] Comment on above: Order Comment: Speci men Type: BLOOD SPECIMENOrdering Facility: [facility] Address: [address] [place] [address] Performed By: #### 2 4321-2 ####[facility] LABCLIA [id number] [place] [address] Chloride [Moles/Vol] 103 mmol/L Normal 97-105 [facility] Comment on above: Order Comment: Speci men Type: BLOOD SPECIMENOrdering Facility: [facility] Address: [address] [place] [address] Performed By: #### 2 4321-2 ####[facility] LABCLIA [id number] [place] [address] CO2 [Moles/Vol] 25 mmol/L Normal 22-30 [facility] Comment on above: Order Comment: Speci men Type: BLOOD SPECIMENOrdering Facility: [facility] Address: [address] [place] [address] Performed By: #### 2 4321-2 ####[facility] LABCLIA [id number] [place] [address] Creatinine [Mass/Vol] 1.65 mg/dL High 0.58-0.96 [facility] Comment on above: Order Comment: Speci men Type: BLOOD SPECIMENOrdering Facility: [facility] Address: [address] [place] [address] Performed By: #### 2 4321-2 ####[facility] LABCLIA [id number] [place] [address] Creatinine and Glomerular filtration rate.predicted panel (S/P/Bld) 31 mL/min/1.73m??? Low >=60 [facility] Comment on above: Order Comment: Speci men Type: BLOOD SPECIMENOrdering Facility: [facility] Address: [address] [phone] Result Comment: Lady mated Glomerular Filtration Rate [...] actual GFR. Performed By: #### 2 4321-2 ####[facility] LABIA [id number] [place] [address] Glucose [Mass/Vol] 254 mg/dL High 74-99 [facility] Comment on above: Order Comment: Margo hernandez Type: BLOOD SPECIMENOrdering Facility: [facility] Address: [address] [address] Result Comment: The [place] [employer] (ADA) provides guidance for cutoff [...] Standards of Medical Care in Diabetes 2016, [place] [employer]. Diabetes Care. 2016.39(Suppl 1). Performed By: #### 2 4321-2 ####[facility] LABIA [id number] [place] [address] Potassium [Moles/Vol] 5.0 mmol/L Normal 3.7-5.1 [facility] Comment on above: Order Comment: Margo hernandez Type: BLOOD SPECIMENOrdering Facility: [facility] Address: [address] [phone] Performed By: #### 2 4321-2 ####[facility] LABCLIA [id number] [place] [address] Sodium [Moles/Vol] 139 mmol/L Normal 136-144 [facility] Comment on above: Order Comment: Speci men Type: BLOOD SPECIMENOrdering Facility: [facility] Address: [address] [place] [address] Performed By: #### 2 4321-2 ####[facility] LABCLIA [id number] [place] [address] Urea nitrogen [Mass/Vol] 38 mg/dL High 7-21 [facility] Comment on above: Order Comment: Speci men Type: BLOOD SPECIMENOrdering Facility: [facility] Address: [address] [place] [address] Performed By: #### 2 4321-2 ####[facility] LABCLIA [id number] [place] [id number] CBC W Auto Differential pane l (Bld)on 06-26-2023 Basophils (Bld) [#/Vol] 10*3/uL Normal <0.11 [facility] Comment on above: Order Comment: Speci men Type: BLOOD SPECIMENOrdering Facility: [facility] Address: [address] [place] [address] Performed By: #### 5 7021-8 ####[facility] LABCLIA [id number] [place] [address] Basophils/100 WBC (Bld) 0.4 % Normal [facility] Comment on above: Order Comment: Speci men Type: BLOOD SPECIMENOrdering Facility: [facility] Address: [address] [place] [address] Performed By: #### 5 7021-8 ####[facility] LABCLIA [id number] [place] [address] Differential cell count method Nom (Bld) Auto Normal [facility] Comment on above: Order Comment: Speci men Type: BLOOD SPECIMENOrdering Facility: [facility] Address: [address] [address] Performed By: #### 5 7021-8 ####[facility] LABCLIA [id number] [place] [address] Eosinophils (Bld) [#/Vol] 0.24 10*3/uL Normal <0.46 [facility] Comment on above: Order Comment: Speci men Type: BLOOD SPECIMENOrdering Facility: [facility] Address: [address] [address] Performed By: #### 5 7021-8 ####[facility] LABCLIA [id number] [place] [address] Eosinophils/100 WBC (Bld) 4.4 % Normal [facility] Comment on above: Order Comment: Speci men Type: BLOOD SPECIMENOrdering Facility: [facility] Address: [address] [place] [address] Performed By: #### 5 7021-8 ####[facility] LABCLIA [id number] [place] [address] Erythrocyte distribution width (RBC) [Ratio] 12.7 % Normal 11.5-15.0 [facility] Comment on above: Order Comment: Speci men Type: BLOOD SPECIMENOrdering Facility: [facility] Address: [address] [place] [address] Performed By: #### 5 7021-8 ####[facility] LABCLIA [id number] [place] [address] Hematocrit (Bld) [Volume fraction] 33.4 % Low 36.0-46.0 [facility] Comment on above: Order Comment: Speci men Type: BLOOD SPECIMENOrdering Facility: [facility] Address: [address] [place] [address] Performed By: #### 5 7021-8 ####[facility] LABCLIA [id number] [place] [address] Hemoglobin (Bld) [Mass/Vol] 11.0 g/dL Low 11.5-15.5 [facility] Comment on above: Order Comment: Speci men Type: BLOOD SPECIMENOrdering Facility: [facility] Address: [address] [place] [address] Performed By: #### 5 7021-8 ####[facility] LABCLIA [id number] [place] [address] Immature granulocytes (Bld) [#/Vol] 10*3/uL Normal <0.10 [facility] Comment on above: Order Comment: Speci men Type: BLOOD SPECIMENOrdering Facility: [facility] Address: [address] [place] [address] Performed By: #### 5 7021-8 ####[facility] LABCLIA [id number] [place] [address] Immature granulocytes/100 WBC (Bld) 0.4 % Normal [facility] Comment on above: Order Comment: Speci men Type: BLOOD SPECIMENOrdering Facility: [facility] Address: [address] [place] [address] Performed By: #### 5 7021-8 ####[facility] LABCLIA [id number] [place] [address] Lymphocytes (Bld) [#/Vol] 1.27 10*3/uL Normal 1.00-4.00 [facility] Comment on above: Order Comment: Speci men Type: BLOOD SPECIMENOrdering Facility: [facility] Address: [address] [place] [address] Performed By: #### 5 7021-8 ####[facility] LABCLIA [id number] [place] [address] Lymphocytes/100 WBC (Bld) 23.4 % Normal [facility] Comment on above: Order Comment: Speci men Type: BLOOD SPECIMENOrdering Facility: [facility] Address: [address] [place] [address] Performed By: #### 5 7021-8 ####[facility] LABCLIA [id number] [place] [address] MCH (RBC) [Entitic mass] 34.1 pg High 26.0-34.0 [facility] Comment on above: Order Comment: Speci men Type: BLOOD SPECIMENOrdering Facility: [facility] Address: [address] [place] [address] Performed By: #### 5 7021-8 ####[facility] LABCLIA [id number] [place] [address] MCHC (RBC) [Mass/Vol] 32.9 g/dL Normal 30.5-36.0 [facility] Comment on above: Order Comment: Speci men Type: BLOOD SPECIMENOrdering Facility: [facility] Address: [address] [place] [address] Performed By: #### 5 7021-8 ####[facility] LABIA [id number] [place] [address] MCV (RBC) [Entitic vol] 103.4 fL High 80.0-100.0 [facility] Comment on above: Order Comment: Speci men Type: BLOOD SPECIMENOrdering Facility: [facility] Address: [address] [place] [address] Performed By: #### 5 7021-8 ####[facility] LABCLIA [id number] [place] [address] Monocytes (Bld) [#/Vol] 0.49 10*3/uL Normal <0.87 [facility] Comment on above: Order Comment: Speci men Type: BLOOD SPECIMENOrdering Facility: [facility] Address: [address] [place] [address] Performed By: #### 5 7021-8 ####[facility] LABCLIA [id number] [place] [address] Monocytes/100 WBC (Bld) 9.0 % Normal [facility] Comment on above: Order Comment: Speci men Type: BLOOD SPECIMENOrdering Facility: [facility] Address: [address] [address] Performed By: #### 5 7021-8 ####[facility] LABCLIA [id number] [place] [address] Neutrophils (Bld) [#/Vol] 3.38 10*3/uL Normal 1.45-7.50 [facility] Comment on above: Order Comment: Speci men Type: BLOOD SPECIMENOrdering Facility: [facility] Address: [address] [address] Performed By: #### 5 7021-8 ####[facility] LABCLIA [id number] [place] [address] Neutrophils/100 WBC (Bld) 62.4 % Normal [facility] Comment on above: Order Comment: Speci men Type: BLOOD SPECIMENOrdering Facility: [facility] Address: [address] [address] Performed By: #### 5 7021-8 ####[facility] LABCLIA [id number] [place] [address] Nucleated RBC (Bld) [#/Vol] 10*3/uL Normal <0.01 [facility] Comment on above: Order Comment: Speci men Type: BLOOD SPECIMENOrdering Facility: [facility] Address: [address] [address] Performed By: #### 5 7021-8 ####[facility] LABIA [id number] [place] [address] Nucleated RBC/100 WBC (Bld) [Ratio] 0.0 /100 WBC Normal [facility] Comment on above: Order Comment: Speci men Type: BLOOD SPECIMENOrdering Facility: [facility] Address: [address] [address] Performed By: #### 5 7021-8 ####[facility] LABCLIA [id number] [place] [address] Platelet mean volume (Bld) [Entitic vol] 8.9 fL Low 9.0-12.7 [facility] Comment on above: Order Comment: Speci men Type: BLOOD SPECIMENOrdering Facility: [facility] Address: [address] [place] [address] Performed By: #### 5 7021-8 ####[facility] LABCLIA [id number] [place] [address] Platelets (Bld) [#/Vol] 191 10*3/uL Normal 150-400 [facility] Comment on above: Order Comment: Speci men Type: BLOOD SPECIMENOrdering Facility: [facility] Address: [address] [place] [address] Performed By: #### 5 7021-8 ####[facility] LABIA [id number] [place] [address] RBC (Bld) [#/Vol] 3.23 10*6/uL Low 3.90-5.20 [facility] Comment on above: Order Comment: Speci men Type: BLOOD SPECIMENOrdering Facility: [facility] Address: [address] [place] [address] Performed By: #### 5 7021-8 ####[facility] LABIA [id number] [place] [address] WBC (Bld) [#/Vol] 5.42 10*3/uL Normal 3.70-11.00 [facility] Comment on above: Order Comment: Speci men Type: BLOOD SPECIMENOrdering Facility: [facility] Address: [address] [place] [address] Performed By: #### 5 7021-8 ####[facility] LABIA [id number] [place] [address] Margaret 06-20-2023 CNPN Telephone (HEMTSA) HENRIETTA MAGANA ([id number]) 1940 F Date Time Provider Department 06/20/23 [...] mg by mouth daily at bedtime. - ciswm-6q-zjs-epa-fish oil 300-1,000 mg cpDR Take by mouth. [...] Status:Closed by DELIA BRADY on 06/27/23 Normal [facility] Basic metabolic 2000 panelon 05-01-2023 Anion gap [Moles/Vol] 9 mmol/L Normal 9-18 [facility] Comment on above: Order Comment: Speci men Type: BLOOD SPECIMENOrdering Facility: [facility] Address: [address] [address] Performed By: #### 2 4321-2 ####[facility] LABCLIA [id number] [place] [address] Calcium [Mass/Vol] 10.2 mg/dL Normal 8.5-10.2 [facility] Comment on above: Order Comment: Speci men Type: BLOOD SPECIMENOrdering Facility: [facility] Address: [address] [address] Performed By: #### 2 4321-2 ####[facility] LABCLIA [id number] [place] [address] Chloride [Moles/Vol] 101 mmol/L Normal 97-105 [facility] Comment on above: Order Comment: Speci men Type: BLOOD SPECIMENOrdering Facility: [facility] Address: [address] [address] Performed By: #### 2 4321-2 ####[facility] LABCLIA [id number] [place] [address] CO2 [Moles/Vol] 27 mmol/L Normal 22-30 [facility] Comment on above: Order Comment: Speci men Type: BLOOD SPECIMENOrdering Facility: [facility] Address: [address] [place] [address] Performed By: #### 2 4321-2 ####[facility] LABCLIA [id number] [place] [address] Creatinine [Mass/Vol] 1.44 mg/dL High 0.58-0.96 [facility] Comment on above: Order Comment: Speci men Type: BLOOD SPECIMENOrdering Facility: [facility] Address: [address] [place] [address] Performed By: #### 2 4321-2 ####[facility] LABIA [id number] [place] [address] ESTIMATED GLOMERULAR FILTRATION RATE 36 mL/min/1.73m??? Low >=60 [facility] Comment on above: Order Comment: Speci men Type: BLOOD SPECIMENOrdering Facility: [facility] Address: [address] [place] [address] Result Comment: Lady mated Glomerular Filtration Rate [...] By: #### 2 4321-2 ####[facility] LABCLIA [id number] [place] [address] Glucose [Mass/Vol] 211 mg/dL High 74-99 [facility] Comment on above: Order Comment: Speci men Type: BLOOD SPECIMENOrdering Facility: [facility] Address: [address] [place] [address] Result Comment: The [place] [employer] (ADA) provides guidance for cutoff [...] Standards of Medical Care in Diabetes 2016, [place] [employer]. Diabetes Care. 2016.39(Suppl 1). Performed By: #### 2 4321-2 ####[facility] LABCLIA [id number] [place] [address] Potassium [Moles/Vol] 4.2 mmol/L Normal 3.7-5.1 [facility] Comment on above: Order Comment: Speci men Type: BLOOD SPECIMENOrdering Facility: [facility] Address: [address] [address] Performed By: #### 2 4321-2 ####[facility] LABCLIA [id number] [place] [address] Sodium [Moles/Vol] 137 mmol/L Normal 136-144 [facility] Comment on above: Order Comment: Speci men Type: BLOOD SPECIMENOrdering Facility: [facility] Address: [address] [address] Performed By: #### 2 4321-2 ####[facility] LABCLIA [id number] [place] [address] Urea nitrogen [Mass/Vol] 37 mg/dL High 7-21 [facility] Comment on above: Order Comment: Speci men Type: BLOOD SPECIMENOrdering Facility: [facility] Address: [address] [address] Performed By: #### 2 4321-2 ####[facility] LABCLIA [id number] [place] [address] Anion gap [Moles/Vol] 9 mmol/L 9 - 18 mmol/L [facility] Calcium [Mass/Vol] 10.2 mg/dL 8.5 - 10. 2 mg/dL [facility] Chloride [Moles/Vol] 101 mmol/L 97 - 10 5 mmol/L [facility] CO2 [Moles/Vol] 27 mmol/L 22 - 30 mmol/L [facility] Creatinine [Mass/Vol] 1.44 mg/dL High 0.58 - 0.96 mg/dL [facility] Estimated Glomerular Filtration Rate 36 mL/min/1.73m Low >=60 mL/min/1.73m [facility] Glucose [Mass/Vol] 211 mg/dL High 74 - 99 mg/dL [facility] Potassium [Moles/Vol] 4.2 mmol/L 3.7 - 5.1 mmol/L [facility] Sodium [Moles/Vol] 137 mmol/L 136 - 144 mmol/L [facility] Urea nitrogen [Mass/Vol] 37 mg/dL High 7 - 21 mg/dL [facility] CBC W Auto Differential pane l (Bld)on 05-01-2023 Basophils (Bld) [#/Vol] 0.03 10*3/uL Normal <0.11 [facility] Comment on above: Order Comment: Speci men Type: BLOOD SPECIMENOrdering Facility: [facility] Address: [address] [place] [address] Performed By: #### 5 7021-8 ####[facility] LABCLIA [id number] [place] [address] Basophils/100 WBC (Bld) 0.5 % Normal [facility] Comment on above: Order Comment: Speci men Type: BLOOD SPECIMENOrdering Facility: [facility] Address: [address] [place] [address] Performed By: #### 5 7021-8 ####[facility] LABCLIA [id number] [place] [address] Differential cell count method Nom (Bld) Auto Normal [facility] Comment on above: Order Comment: Speci men Type: BLOOD SPECIMENOrdering Facility: [facility] Address: [address] [address] Performed By: #### 5 7021-8 ####[facility] LABCLIA [id number] [place] [address] Eosinophils (Bld) [#/Vol] 0.19 10*3/uL Normal <0.46 [facility] Comment on above: Order Comment: Speci men Type: BLOOD SPECIMENOrdering Facility: [facility] Address: [address] [address] Performed By: #### 5 7021-8 ####[facility] LABCLIA [id number] [place] [address] Eosinophils/100 WBC (Bld) 3.3 % Normal [facility] Comment on above: Order Comment: Speci men Type: BLOOD SPECIMENOrdering Facility: [facility] Address: [address] [place] [address] Performed By: #### 5 7021-8 ####[facility] LABCLIA [id number] [place] [address] Erythrocyte distribution width (RBC) [Ratio] 13.1 % Normal 11.5-15.0 [facility] Comment on above: Order Comment: Speci men Type: BLOOD SPECIMENOrdering Facility: [facility] Address: [address] [place] [address] Performed By: #### 5 7021-8 ####[facility] LABCLIA [id number] [place] [address] Hematocrit (Bld) [Volume fraction] 35.2 % Low 36.0-46.0 [facility] Comment on above: Order Comment: Speci men Type: BLOOD SPECIMENOrdering Facility: [facility] Address: [address] [place] [address] Performed By: #### 5 7021-8 ####[facility] LABCLIA [id number] [place] [address] Hemoglobin (Bld) [Mass/Vol] 11.5 g/dL Normal 11.5-15.5 [facility] Comment on above: Order Comment: Speci men Type: BLOOD SPECIMENOrdering Facility: [facility] Address: [address] [place] [address] Performed By: #### 5 7021-8 ####[facility] LABCLIA [id number] [place] [address] Immature granulocytes (Bld) [#/Vol] 10*3/uL Normal <0.10 [facility] Comment on above: Order Comment: Speci men Type: BLOOD SPECIMENOrdering Facility: [facility] Address: [address] [place] [address] Performed By: #### 5 7021-8 ####[facility] LABCLIA [id number] [place] [address] Immature granulocytes/100 WBC (Bld) 0.3 % Normal [facility] Comment on above: Order Comment: Speci men Type: BLOOD SPECIMENOrdering Facility: [facility] Address: [address] [place] [address] Performed By: #### 5 7021-8 ####[facility] LABCLIA [id number] [place] [address] Lymphocytes (Bld) [#/Vol] 1.36 10*3/uL Normal 1.00-4.00 [facility] Comment on above: Order Comment: Speci men Type: BLOOD SPECIMENOrdering Facility: [facility] Address: [address] [place] [address] Performed By: #### 5 7021-8 ####[facility] LABCLIA [id number] [place] [address] Lymphocytes/100 WBC (Bld) 23.4 % Normal [facility] Comment on above: Order Comment: Speci men Type: BLOOD SPECIMENOrdering Facility: [facility] Address: [address] [place] [address] Performed By: #### 5 7021-8 ####[facility] LABCLIA [id number] [place] [address] MCH (RBC) [Entitic mass] 33.1 pg Normal 26.0-34.0 [facility] Comment on above: Order Comment: Speci men Type: BLOOD SPECIMENOrdering Facility: [facility] Address: [address] [place] [address] Performed By: #### 5 7021-8 ####[facility] LABCLIA [id number] [place] [address] MCHC (RBC) [Mass/Vol] 32.7 g/dL Normal 30.5-36.0 [facility] Comment on above: Order Comment: Speci men Type: BLOOD SPECIMENOrdering Facility: [facility] Address: [address] [place] [address] Performed By: #### 5 7021-8 ####[facility] LABIA [id number] [place] [address] MCV (RBC) [Entitic vol] 101.4 fL High 80.0-100.0 [facility] Comment on above: Order Comment: Speci men Type: BLOOD SPECIMENOrdering Facility: [facility] Address: [address] [place] [address] Performed By: #### 5 7021-8 ####[facility] LABCLIA [id number] [place] [address] Monocytes (Bld) [#/Vol] 0.50 10*3/uL Normal <0.87 [facility] Comment on above: Order Comment: Speci men Type: BLOOD SPECIMENOrdering Facility: [facility] Address: [address] [place] [address] Performed By: #### 5 7021-8 ####[facility] LABCLIA [id number] [place] [address] Monocytes/100 WBC (Bld) 8.6 % Normal [facility] Comment on above: Order Comment: Speci men Type: BLOOD SPECIMENOrdering Facility: [facility] Address: [address] [address] Performed By: #### 5 7021-8 ####[facility] LABCLIA [id number] [place] [address] Neutrophils (Bld) [#/Vol] 3.70 10*3/uL Normal 1.45-7.50 [facility] Comment on above: Order Comment: Speci men Type: BLOOD SPECIMENOrdering Facility: [facility] Address: [address] [address] Performed By: #### 5 7021-8 ####[facility] LABCLIA [id number] [place] [address] Neutrophils/100 WBC (Bld) 63.9 % Normal [facility] Comment on above: Order Comment: Speci men Type: BLOOD SPECIMENOrdering Facility: [facility] Address: [address] [address] Performed By: #### 5 7021-8 ####[facility] LABCLIA [id number] [place] [address] Nucleated RBC (Bld) [#/Vol] 10*3/uL Normal <0.01 [facility] Comment on above: Order Comment: Speci men Type: BLOOD SPECIMENOrdering Facility: [facility] Address: [address] [address] Performed By: #### 5 7021-8 ####[facility] LABCLIA [id number] [place] [address] Nucleated RBC/100 WBC (Bld) [Ratio] 0.0 /100 WBC Normal [facility] Comment on above: Order Comment: Speci men Type: BLOOD SPECIMENOrdering Facility: [facility] Address: [address] [address] Performed By: #### 5 7021-8 ####[facility] LABCLIA [id number] [place] [address] Platelet mean volume (Bld) [Entitic vol] 9.1 fL Normal 9.0-12.7 [facility] Comment on above: Order Comment: Speci men Type: BLOOD SPECIMENOrdering Facility: [facility] Address: [address] [place] [address] Performed By: #### 5 7021-8 ####[facility] [facility] [id number] [place] [address] Platelets (Bld) [#/Vol] 205 10*3/uL Normal 150-400 [facility] Comment on above: Order Comment: Speci men Type: BLOOD SPECIMENOrdering Facility: [facility] Address: [address] [place] [address] Performed By: #### 5 7021-8 ####[facility] LABIA [id number] [place] [address] RBC (Bld) [#/Vol] 3.47 10*6/uL Low 3.90-5.20 [facility] Comment on above: Order Comment: Speci men Type: BLOOD SPECIMENOrdering Facility: [facility] Address: [address] [place] [address] Performed By: #### 5 7021-8 ####[facility] LABCLIA [id number] [place] [address] WBC (Bld) [#/Vol] 5.80 10*3/uL Normal 3.70-11.00 [facility] Comment on above: Order Comment: Speci men Type: BLOOD SPECIMENOrdering Facility: [facility] Address: [address] [place] [address] Performed By: #### 5 7021-8 ####[facility] LABCLIA [id number] [place] [address] Basophils (Bld) [#/Vol] 0.03 10*3/uL <0.11 k/uL [facility] Basophils/100 WBC (Bld) 0.5 % [facility] Differential cell count method Nom (Bld) Auto [facility] Eosinophils (Bld) [#/Vol] 0.19 10*3/uL <0.46 k/uL [facility] Eosinophils/100 WBC (Bld) 3.3 % [facility] Erythrocyte distribution width (RBC) [Ratio] 13.1 % 11.5 - 15.0 % [facility] Hematocrit (Bld) [Volume fraction] 35.2 % Low 36.0 - 46.0 % [facility] Hemoglobin (Bld) [Mass/Vol] 11.5 g/dL 11.5 - 15.5 g/dL [facility] Immature granulocytes (Bld) [#/Vol] <0.10 k/uL [facility] Immature granulocytes/100 WBC (Bld) 0.3 % [facility] Lymphocytes (Bld) [#/Vol] 1.36 10*3/uL 1.00 - 4.00 k/uL [facility] Lymphocytes/100 WBC (Bld) 23.4 % [facility] MCH (RBC) [Entitic mass] 33.1 pg 26.0 - 34.0 pg [facility] MCHC (RBC) [Mass/Vol] 32.7 g/dL 30.5 - 36.0 g/dL [facility] MCV (RBC) [Entitic vol] 101.4 fL High 80.0 - 100.0 fL [facility] Monocytes (Bld) [#/Vol] 0.50 10*3/uL <0.87 k/uL [facility] Monocytes/100 WBC (Bld) 8.6 % [facility] Neutrophils (Bld) [#/Vol] 3.70 10*3/uL 1.45 - 7.50 k/uL [facility] Neutrophils/100 WBC (Bld) 63.9 % [facility] Nucleated RBC (Bld) [#/Vol] <0.01 k/uL [facility] Nucleated RBC/100 WBC (Bld) [Ratio] 0.0 /100 WBC [facility] Platelet mean volume (Bld) [Entitic vol] 9.1 fL 9.0 - 12.7 fL [facility] Platelets (Bld) [#/Vol] 205 10*3/uL 150 - 400 k/uL [facility] RBC (Bld) [#/Vol] 3.47 10*6/uL Low 3.90 - 5.2 0 m/uL [facility] WBC (Bld) [#/Vol] 5.80 10*3/uL 3.70 - 11. 00 k/uL [facility] CNOVSPon 05-01-2023 CNOVSP Visit (SP) Office ([facility]) HENRIETTA MAGANA ([id number]) 1940 F Date Time Provider Department 05/01/23 [...] 134 mg by mouth daily at bedtime. iizxy-[id number]-[id number]-epa-fish oil 300-1,000 mg cpDR Take by mouth. [...] renal failu (more content not included)... Normal [facility] Ferritin SerPl-mCncon 2022 Ferritin [Mass/Vol] 322.0 ng/mL High 14.7-205.1 [facility] Comment on above: Order Comment: Margo hernandez Type: BLOOD SPECIMENOrdering Facility: [facility] Address: [address] [place] [address] Performed By: #### 2 276-4, 39497-6 ####[facility] LABCLIA [id number] [place] [address] [place] Iron and Iron binding capaci ty panelon 05-01-2023 Iron [Mass/Vol] 74 ug/dL Normal 41-186 [facility] Comment on above: Order Comment: Margo hernandez Type: BLOOD SPECIMENOrdering Facility: [facility] Address: [address] [place] [address] Performed By: #### 2 276-4, 11356-0 ####[facility] LABCLIA [id number] [place] [address] [place] Iron binding capacity [Mass/Vol] 352 ug/dL Normal 232-386 [facility] Comment on above: Order Comment: Speci men Type: BLOOD SPECIMENOrdering Facility: [facility] Address: [address] [place] [address] Performed By: #### 2 276-4, 00761-5 ####[facility] LABCLIA [id number] [place] [address] [place] Iron/TIBC [Molar ratio] 21.0 % Normal 15.0-57.0 [facility] Comment on above: Order Comment: Speci men Type: BLOOD SPECIMENOrdering Facility: [facility] Address: [address] [place] [address] Performed By: #### 2 276-4, 48385-6 ####[facility] LABIA [id number] [place] [address] [place] CBC W Auto Differential pane l (Bld)on 03-20-2023 Basophils (Bld) [#/Vol] 0.04 10*3/uL Normal <0.11 [facility] Comment on above: Order Comment: Speci men Type: BLOOD SPECIMENOrdering Facility: [facility] Address: [address] [place] [address] Performed By: #### 5 7021-8 ####[facility] LABCLIA [id number] [place] [address] Basophils/100 WBC (Bld) 0.8 % Normal [facility] Comment on above: Order Comment: Speci men Type: BLOOD SPECIMENOrdering Facility: [facility] Address: [address] [place] [address] Performed By: #### 5 7021-8 ####[facility] LABCLIA [id number] [place] [address] Differential cell count method Nom (Bld) Auto Normal [facility] Comment on above: Order Comment: Speci men Type: BLOOD SPECIMENOrdering Facility: [facility] Address: [address] [address] Performed By: #### 5 7021-8 ####[facility] LABCLIA [id number] [place] [address] Eosinophils (Bld) [#/Vol] 0.21 10*3/uL Normal <0.46 [facility] Comment on above: Order Comment: Speci men Type: BLOOD SPECIMENOrdering Facility: [facility] Address: [address] [place] [address] Performed By: #### 5 7021-8 ####[facility] LABCLIA [id number] [place] [address] Eosinophils/100 WBC (Bld) 4.1 % Normal [facility] Comment on above: Order Comment: Speci men Type: BLOOD SPECIMENOrdering Facility: [facility] Address: [address] [place] [address] Performed By: #### 5 7021-8 ####[facility] LABCLIA [id number] [place] [address] Erythrocyte distribution width (RBC) [Ratio] 12.3 % Normal 11.5-15.0 [facility] Comment on above: Order Comment: Speci men Type: BLOOD SPECIMENOrdering Facility: [facility] Address: [address] [place] [address] Performed By: #### 5 7021-8 ####[facility] LABCLIA [id number] [place] [address] Hematocrit (Bld) [Volume fraction] 36.1 % Normal 36.0-46.0 [facility] Comment on above: Order Comment: Speci men Type: BLOOD SPECIMENOrdering Facility: [facility] Address: [address] [place] [address] Performed By: #### 5 7021-8 ####[facility]CLIA [id number] [place] [address] Hemoglobin (Bld) [Mass/Vol] 11.7 g/dL Normal 11.5-15.5 [facility] Comment on above: Order Comment: Speci men Type: BLOOD SPECIMENOrdering Facility: [facility] Address: [address] [place] [address] Performed By: #### 5 7021-8 ####[facility] LABCLIA [id number] [place] [address] Immature granulocytes (Bld) [#/Vol] 10*3/uL Normal <0.10 [facility] Comment on above: Order Comment: Speci men Type: BLOOD SPECIMENOrdering Facility: [facility] Address: [address] [place] [address] Performed By: #### 5 7021-8 ####[facility] LABCLIA [id number] [place] [address] Immature granulocytes/100 WBC (Bld) 0.2 % Normal [facility] Comment on above: Order Comment: Speci men Type: BLOOD SPECIMENOrdering Facility: [facility] Address: [address] [place] [address] Performed By: #### 5 7021-8 ####[facility] LABCLIA [id number] [place] [address] Lymphocytes (Bld) [#/Vol] 1.40 10*3/uL Normal 1.00-4.00 [facility] Comment on above: Order Comment: Speci men Type: BLOOD SPECIMENOrdering Facility: [facility] Address: [address] [place] [address] Performed By: #### 5 7021-8 ####[facility] LABCLIA [id number] [place] [address] Lymphocytes/100 WBC (Bld) 27.3 % Normal [facility] Comment on above: Order Comment: Speci men Type: BLOOD SPECIMENOrdering Facility: [facility] Address: [address] [address] Performed By: #### 5 7021-8 ####[facility] LABCLIA [id number] [place] [address] MCH (RBC) [Entitic mass] 33.1 pg Normal 26.0-34.0 [facility] Comment on above: Order Comment: Speci men Type: BLOOD SPECIMENOrdering Facility: [facility] Address: [address] [place] [address] Performed By: #### 5 7021-8 ####[facility] LABIA [id number] [place] [address] MCHC (RBC) [Mass/Vol] 32.4 g/dL Normal 30.5-36.0 [facility] Comment on above: Order Comment: Speci men Type: BLOOD SPECIMENOrdering Facility: [facility] Address: [address] [place] [address] Performed By: #### 5 7021-8 ####[facility] LABIA [id number] [place] [address] MCV (RBC) [Entitic vol] 102.0 fL High 80.0-100.0 [facility] Comment on above: Order Comment: Speci men Type: BLOOD SPECIMENOrdering Facility: [facility] Address: [address] [place] [address] Performed By: #### 5 7021-8 ####[facility] LABCLIA [id number] [place] [address] Monocytes (Bld) [#/Vol] 0.49 10*3/uL Normal <0.87 [facility] Comment on above: Order Comment: Speci men Type: BLOOD SPECIMENOrdering Facility: [facility] Address: [address] [place] [address] Performed By: #### 5 7021-8 ####[facility] LABCLIA [id number] [place] [address] Monocytes/100 WBC (Bld) 9.6 % Normal [facility] Comment on above: Order Comment: Speci men Type: BLOOD SPECIMENOrdering Facility: [facility] Address: [address] [place] [address] Performed By: #### 5 7021-8 ####[facility] LABCLIA [id number] [place] [address] Neutrophils (Bld) [#/Vol] 2.97 10*3/uL Normal 1.45-7.50 [facility] Comment on above: Order Comment: Speci men Type: BLOOD SPECIMENOrdering Facility: [facility] Address: [address] [place] [address] Performed By: #### 5 7021-8 ####[facility] LABCLIA [id number] [place] [address] Neutrophils/100 WBC (Bld) 58.0 % Normal [facility] Comment on above: Order Comment: Speci men Type: BLOOD SPECIMENOrdering Facility: [facility] Address: [address] [place] [address] Performed By: #### 5 7021-8 ####[facility] LABCLIA [id number] [place] [address] Nucleated RBC (Bld) [#/Vol] 10*3/uL Normal <0.01 [facility] Comment on above: Order Comment: Speci men Type: BLOOD SPECIMENOrdering Facility: [facility] Address: [address] [place] [address] Performed By: #### 5 7021-8 ####[facility] LABCLIA [id number] [place] [address] Nucleated RBC/100 WBC (Bld) [Ratio] 0.0 /100 WBC Normal [facility] Comment on above: Order Comment: Speci men Type: BLOOD SPECIMENOrdering Facility: [facility] Address: [address] [place] [address] Performed By: #### 5 7021-8 ####[facility] LABCLIA [id number] [place] [address] Platelet mean volume (Bld) [Entitic vol] 8.9 fL Low 9.0-12.7 [facility] Comment on above: Order Comment: Speci men Type: BLOOD SPECIMENOrdering Facility: [facility] Address: [address] [place] [address] Performed By: #### 5 7021-8 ####[facility] LABCLIA [id number] [place] [address] Platelets (Bld) [#/Vol] 186 10*3/uL Normal 150-400 [facility] Comment on above: Order Comment: Speci men Type: BLOOD SPECIMENOrdering Facility: [facility] Address: [address] [place] [address] Performed By: #### 5 7021-8 ####[facility] LABIA [id number] [place] [address] RBC (Bld) [#/Vol] 3.54 10*6/uL Low 3.90-5.20 [facility] Comment on above: Order Comment: Speci men Type: BLOOD SPECIMENOrdering Facility: [facility] Address: [address] [place] [address] Performed By: #### 5 7021-8 ####[facility] LABCLIA [id number] [place] [address] WBC (Bld) [#/Vol] 5.12 10*3/uL Normal 3.70-11.00 [facility] Comment on above: Order Comment: Speci men Type: BLOOD SPECIMENOrdering Facility: [facility] Address: [address] [place] [address] Performed By: #### 5 7021-8 ####[facility] LABCLIA [id number] [place] [address] GLYCOHEMOGLOBIN A1Con 2022 ADA RECOMMENDATION SEE BELOW Normal [facility] Comment on above: Result Comment: ADA RECOMMENDED LIMIT 4.0 - 6.0 ADA THERAPEUTIC TARGET < 7.0 ACTION SUGGESTED > 7.0 Performed By: #### D ATA1C #### [facility] [address] [address] [address] Ashley Luna Glucose [Mass/Vol] 174 mg/dL Normal [facility] Comment on above: Performed By: #### D ATA1C #### [facility] [address] [address] [address] Ashley Luna HbA1c (Bld) [Mass fraction] 7.7 % Critically high 4.5-6.2 [facility] Comment on above: Performed By: #### D ATA1C #### [facility] [address] [address] [address] Ashley Luna CBC W Auto Differential pane l (Bld)on 02-06-2023 Basophils (Bld) [#/Vol] 10*3/uL Normal <0.11 [facility] Comment on above: Order Comment: Speci men Type: BLOOD SPECIMENOrdering Facility: [facility] Address: [address] [place] [address] Performed By: #### 5 7021-8 ####[facility] LABCLIA [id number] [place] [address] Basophils/100 WBC (Bld) 0.4 % Normal [facility] Comment on above: Order Comment: Speci men Type: BLOOD SPECIMENOrdering Facility: [facility] Address: [address] [address] Performed By: #### 5 7021-8 ####[facility] LABCLIA [id number] [place] [address] Differential cell count method Nom (Bld) Auto Normal [facility] Comment on above: Order Comment: Speci men Type: BLOOD SPECIMENOrdering Facility: [facility] Address: [address] [address] Performed By: #### 5 7021-8 ####[facility] LABCLIA [id number] [place] [address] Eosinophils (Bld) [#/Vol] 0.24 10*3/uL Normal <0.46 [facility] Comment on above: Order Comment: Speci men Type: BLOOD SPECIMENOrdering Facility: [facility] Address: [address] [place] [address] Performed By: #### 5 7021-8 ####[facility] LABCLIA [id number] [place] [address] Eosinophils/100 WBC (Bld) 4.9 % Normal [facility] Comment on above: Order Comment: Speci men Type: BLOOD SPECIMENOrdering Facility: [facility] Address: [address] [place] [address] Performed By: #### 5 7021-8 ####[facility] LABCLIA [id number] [place] [address] Erythrocyte distribution width (RBC) [Ratio] 12.7 % Normal 11.5-15.0 [facility] Comment on above: Order Comment: Speci men Type: BLOOD SPECIMENOrdering Facility: [facility] Address: [address] [place] [address] Performed By: #### 5 7021-8 ####[facility] LABCLIA [id number] [place] [address] Hematocrit (Bld) [Volume fraction] 33.0 % Low 36.0-46.0 [facility] Comment on above: Order Comment: Speci men Type: BLOOD SPECIMENOrdering Facility: [facility] Address: [address] [place] [address] Performed By: #### 5 7021-8 ####[facility] LABCLIA [id number] [place] [address] Hemoglobin (Bld) [Mass/Vol] 10.6 g/dL Low 11.5-15.5 [facility] Comment on above: Order Comment: Speci men Type: BLOOD SPECIMENOrdering Facility: [facility] Address: [address] [place] [address] Performed By: #### 5 7021-8 ####[facility] LABCLIA [id number] [place] [address] Immature granulocytes (Bld) [#/Vol] 10*3/uL Normal <0.10 [facility] Comment on above: Order Comment: Speci men Type: BLOOD SPECIMENOrdering Facility: [facility] Address: [address] [place] [address] Performed By: #### 5 7021-8 ####[facility] LABCLIA [id number] [place] [address] Immature granulocytes/100 WBC (Bld) 0.2 % Normal [facility] Comment on above: Order Comment: Speci men Type: BLOOD SPECIMENOrdering Facility: [facility] Address: [address] [place] [address] Performed By: #### 5 7021-8 ####[facility] LABCLIA [id number] [place] [address] Lymphocytes (Bld) [#/Vol] 1.61 10*3/uL Normal 1.00-4.00 [facility] Comment on above: Order Comment: Speci men Type: BLOOD SPECIMENOrdering Facility: [facility] Address: [address] [place] [address] Performed By: #### 5 7021-8 ####[facility] LABCLIA [id number] [place] [address] Lymphocytes/100 WBC (Bld) 32.7 % Normal [facility] Comment on above: Order Comment: Speci men Type: BLOOD SPECIMENOrdering Facility: [facility] Address: [address] [place] [address] Performed By: #### 5 7021-8 ####[facility] LABCLIA [id number] [place] [address] MCH (RBC) [Entitic mass] 33.8 pg Normal 26.0-34.0 [facility] Comment on above: Order Comment: Speci men Type: BLOOD SPECIMENOrdering Facility: [facility] Address: [address] [place] [address] Performed By: #### 5 7021-8 ####[facility] LABIA [id number] [place] [address] MCHC (RBC) [Mass/Vol] 32.1 g/dL Normal 30.5-36.0 [facility] Comment on above: Order Comment: Speci men Type: BLOOD SPECIMENOrdering Facility: [facility] Address: [address] [place] [address] Performed By: #### 5 7021-8 ####[facility] LABIA [id number] [place] [address] MCV (RBC) [Entitic vol] 105.1 fL High 80.0-100.0 [facility] Comment on above: Order Comment: Speci men Type: BLOOD SPECIMENOrdering Facility: [facility] Address: [address] [place] [address] Performed By: #### 5 7021-8 ####[facility] LABIA [id number] [place] [address] Monocytes (Bld) [#/Vol] 0.48 10*3/uL Normal <0.87 [facility] Comment on above: Order Comment: Speci men Type: BLOOD SPECIMENOrdering Facility: [facility] Address: [address] [place] [address] Performed By: #### 5 7021-8 ####[facility] LABIA [id number] [place] [address] Monocytes/100 WBC (Bld) 9.8 % Normal [facility] Comment on above: Order Comment: Speci men Type: BLOOD SPECIMENOrdering Facility: [facility] Address: [address] [address] Performed By: #### 5 7021-8 ####[facility] LABCLIA [id number] [place] [address] Neutrophils (Bld) [#/Vol] 2.56 10*3/uL Normal 1.45-7.50 [facility] Comment on above: Order Comment: Speci men Type: BLOOD SPECIMENOrdering Facility: [facility] Address: [address] [address] Performed By: #### 5 7021-8 ####[facility] LABCLIA [id number] [place] [address] Neutrophils/100 WBC (Bld) 52.0 % Normal [facility] Comment on above: Order Comment: Speci men Type: BLOOD SPECIMENOrdering Facility: [facility] Address: [address] [place] [address] Performed By: #### 5 7021-8 ####[facility] LABCLIA [id number] [place] [address] Nucleated RBC (Bld) [#/Vol] 10*3/uL Normal <0.01 [facility] Comment on above: Order Comment: Speci men Type: BLOOD SPECIMENOrdering Facility: [facility] Address: [address] [place] [address] Performed By: #### 5 7021-8 ####[facility] LABCLIA [id number] [place] [address] Nucleated RBC/100 WBC (Bld) [Ratio] 0.0 /100 WBC Normal [facility] Comment on above: Order Comment: Speci men Type: BLOOD SPECIMENOrdering Facility: [facility] Address: [address] [place] [address] Performed By: #### 5 7021-8 ####[facility] LABCLIA [id number] [place] [address] Platelet mean volume (Bld) [Entitic vol] 9.0 fL Normal 9.0-12.7 [facility] Comment on above: Order Comment: Speci men Type: BLOOD SPECIMENOrdering Facility: [facility] Address: [address] [place] [address] Performed By: #### 5 7021-8 ####[facility] LABCLIA [id number] [place] [address] Platelets (Bld) [#/Vol] 189 10*3/uL Normal 150-400 [facility] Comment on above: Order Comment: Speci men Type: BLOOD SPECIMENOrdering Facility: [facility] Address: [address] [place] [address] Performed By: #### 5 7021-8 ####[facility] LABIA [id number] [place] [address] RBC (Bld) [#/Vol] 3.14 10*6/uL Low 3.90-5.20 [facility] Comment on above: Order Comment: Speci men Type: BLOOD SPECIMENOrdering Facility: [facility] Address: [address] [place] [address] Performed By: #### 5 7021-8 ####[facility] LABCLIA [id number] [place] [address] WBC (Bld) [#/Vol] 4.92 10*3/uL Normal 3.70-11.00 [facility] Comment on above: Order Comment: Speci men Type: BLOOD SPECIMENOrdering Facility: [facility] Address: [address] [place] [address] Performed By: #### 5 7021-8 ####[facility] LABIA [id number] [place] [address] Basophils (Bld) [#/Vol] <0.11 k/uL [facility] Basophils/100 WBC (Bld) 0.4 % [facility] Differential cell count method Nom (Bld) Auto [facility] Eosinophils (Bld) [#/Vol] 0.24 10*3/uL <0.46 k/uL [facility] Eosinophils/100 WBC (Bld) 4.9 % [facility] Erythrocyte distribution width (RBC) [Ratio] 12.7 % 11.5 - 15.0 % [facility] Hematocrit (Bld) [Volume fraction] 33.0 % Low 36.0 - 46.0 % [facility] Hemoglobin (Bld) [Mass/Vol] 10.6 g/dL Low 11.5 - 15.5 g/dL [facility] Immature granulocytes (Bld) [#/Vol] <0.10 k/uL [facility] Immature granulocytes/100 WBC (Bld) 0.2 % [facility] Lymphocytes (Bld) [#/Vol] 1.61 10*3/uL 1.00 - 4.00 k/uL [facility] Lymphocytes/100 WBC (Bld) 32.7 % [facility] MCH (RBC) [Entitic mass] 33.8 pg 26.0 - 34.0 pg [facility] MCHC (RBC) [Mass/Vol] 32.1 g/dL 30.5 - 36.0 g/dL [facility] MCV (RBC) [Entitic vol] 105.1 fL High 80.0 - 100.0 fL [facility] Monocytes (Bld) [#/Vol] 0.48 10*3/uL <0.87 k/uL [facility] Monocytes/100 WBC (Bld) 9.8 % [facility] Neutrophils (Bld) [#/Vol] 2.56 10*3/uL 1.45 - 7.50 k/uL [facility] Neutrophils/100 WBC (Bld) 52.0 % [facility] Nucleated RBC (Bld) [#/Vol] <0.01 k/uL [facility] Nucleated RBC/100 WBC (Bld) [Ratio] 0.0 /100 WBC [facility] Platelet mean volume (Bld) [Entitic vol] 9.0 fL 9.0 - 12.7 fL [facility] Platelets (Bld) [#/Vol] 189 10*3/uL 150 - 400 k/uL [facility] RBC (Bld) [#/Vol] 3.14 10*6/uL Low 3.90 - 5.2 0 m/uL [facility] WBC (Bld) [#/Vol] 4.92 10*3/uL 3.70 - 11. 00 k/uL [facility] CNOVSPon 02-06-2023 CNOVSP Visit (SP) Office ([facility]) HENRIETTA MAGANA ([id number]) 1940 F Date Time Provider Department 02/06/23 9:45 AM ATIF YOUISF During your visit today, we recorded the [...] 134 mg by mouth daily at bedtime. [id number]-fish oil 300-1,000 mg cpDR Take by mouth. [...] treatment o (more content not included)... Normal [facility] Comprehensive metabolic 2000 panelon 02-06-2023 Albumin [Mass/Vol] 4.1 g/dL Normal 3.9-4.9 [facility] Comment on above: Order Comment: Speci men Type: BLOOD SPECIMENOrdering Facility: [facility] Address: [address] [place], [place] [id number] Performed By: #### 2 4323-8 ####[facility] LABCLIA [id number] [place] [address] ALP [Catalytic activity/Vol] 27 U/L Low 34-123 [facility] Comment on above: Order Comment: Speci men Type: BLOOD SPECIMENOrdering Facility: [facility] Address: [address] [place], [place] [id number] Performed By: #### 2 4323-8 ####[facility]CL[facility] [id number] [place] [address] ALT [Catalytic activity/Vol] 9 U/L Normal 7-38 [facility] Comment on above: Order Comment: Speci men Type: BLOOD SPECIMENOrdering Facility: [facility] Address: [address] [address] Performed By: #### 2 4323-8 ####[facility] [id number] [place] [address] Anion gap [Moles/Vol] 9 mmol/L Normal 9-18 [facility] Comment on above: Order Comment: Speci men Type: BLOOD SPECIMENOrdering Facility: [facility] Address: [address] [address] Performed By: #### 2 4323-8 ####[facility] [id number] [place] [address] AST [Catalytic activity/Vol] 12 U/L Low 13-35 [facility] Comment on above: Order Comment: Speci men Type: BLOOD SPECIMENOrdering Facility: [facility] Address: [address] [address] Performed By: #### 2 4323-8 ####[facility] [id number] [place] [address] Bilirubin [Mass/Vol] 0.3 mg/dL Normal 0.2-1.3 [facility] Comment on above: Order Comment: Speci men Type: BLOOD SPECIMENOrdering Facility: [facility] Address: [address] [address] Performed By: #### 2 4323-8 ####[facility] [id number] [place] [address] Calcium [Mass/Vol] 9.5 mg/dL Normal 8.5-10.2 [facility] Comment on above: Order Comment: Speci men Type: BLOOD SPECIMENOrdering Facility: [facility] Address: [address] [place] [address] Performed By: #### 2 4323-8 ####[facility] [id number] [place] [address] Chloride [Moles/Vol] 100 mmol/L Normal 97-105 [facility] Comment on above: Order Comment: Speci men Type: BLOOD SPECIMENOrdering Facility: [facility] Address: [address] [place] [address] Performed By: #### 2 4323-8 ####[facility] [id number] [place] [address] CO2 [Moles/Vol] 26 mmol/L Normal 22-30 [facility] Comment on above: Order Comment: Speci men Type: BLOOD SPECIMENOrdering Facility: [facility] Address: [address] [place] [address] Performed By: #### 2 4323-8 ####[facility] [id number] [place] [address] Creatinine [Mass/Vol] 1.56 mg/dL High 0.58-0.96 [facility] Comment on above: Order Comment: Speci men Type: BLOOD SPECIMENOrdering Facility: [facility] Address: [address] [place] [address] Performed By: #### 2 4323-8 ####[facility] [id number] [place] [address] ESTIMATED GLOMERULAR FILTRATION RATE 33 mL/min/1.73m??? Low >=60 [facility] Comment on above: Order Comment: Speci men Type: BLOOD SPECIMENOrdering Facility: [facility] Address: [address] [place] [address] Result Comment: Lady mated Glomerular Filtration Rate [...] By: #### 2 4323-8 ####[facility] [id number] [place] [address] Glucose [Mass/Vol] 246 mg/dL High 74-99 [facility] Comment on above: Order Comment: Speci men Type: BLOOD SPECIMENOrdering Facility: [facility] Address: [address] [place] [address] Result Comment: The [place] [employer] (ADA) provides guidance for cutoff [...] Standards of Medical Care in Diabetes 2016, [place] [employer]. Diabetes Care. 2016.39(Suppl 1). Performed By: #### 2 4323-8 ####[facility] [id number] [place] [address] Potassium [Moles/Vol] 4.6 mmol/L Normal 3.7-5.1 [facility] Comment on above: Order Comment: Speci men Type: BLOOD SPECIMENOrdering Facility: [facility] Address: [address] [place] [address] Performed By: #### 2 4323-8 ####[facility] [id number] [place] [address] Protein [Mass/Vol] 6.7 g/dL Normal 6.3-8.0 [facility] Comment on above: Order Comment: Speci men Type: BLOOD SPECIMENOrdering Facility: [facility] Address: [address] [place] [address] Performed By: #### 2 4323-8 ####[facility] [id number] [place] [address] Sodium [Moles/Vol] 135 mmol/L Low 136-144 [facility] Comment on above: Order Comment: Speci men Type: BLOOD SPECIMENOrdering Facility: [facility] Address: [address] [address] Performed By: #### 2 4323-8 ####[facility] [id number] [place] [address] Urea nitrogen [Mass/Vol] 34 mg/dL High 7-21 [facility] Comment on above: Order Comment: Speci men Type: BLOOD SPECIMENOrdering Facility: [facility] Address: [address] [address] Performed By: #### 2 4323-8 ####[facility] [id number] [place] [address] Albumin [Mass/Vol] 4.1 g/dL 3.9 - 4.9 g/dL [facility] ALP [Catalytic activity/Vol] 27 U/L Low 34 - 123 U/L [facility] ALT [Catalytic activity/Vol] 9 U/L 7 - 38 U/L [facility] Anion gap [Moles/Vol] 9 mmol/L 9 - 18 mmol/L [facility] AST [Catalytic activity/Vol] 12 U/L Low 13 - 35 U/L [facility] Bilirubin [Mass/Vol] 0.3 mg/dL 0.2 - 1 .3 mg/dL [facility] Calcium [Mass/Vol] 9.5 mg/dL 8.5 - 10. 2 mg/dL [facility] Chloride [Moles/Vol] 100 mmol/L 97 - 10 5 mmol/L [facility] CO2 [Moles/Vol] 26 mmol/L 22 - 30 mmol/L [facility] Creatinine [Mass/Vol] 1.56 mg/dL High 0.58 - 0.96 mg/dL [facility] Estimated Glomerular Filtration Rate 33 mL/min/1.73m Low >=60 mL/min/1.73m [facility] Glucose [Mass/Vol] 246 mg/dL High 74 - 99 mg/dL [facility] Potassium [Moles/Vol] 4.6 mmol/L 3.7 - 5.1 mmol/L [facility] Protein [Mass/Vol] 6.7 g/dL 6.3 - 8.0 g/dL [facility] Sodium [Moles/Vol] 135 mmol/L Low 136 - 144 mmol/L [facility] Urea nitrogen [Mass/Vol] 34 mg/dL High 7 - 21 mg/dL [facility] FERRITIN BLDon 02-06-2023 Ferritin [Mass/Vol] 307.0 ng/mL High 14.7 - 2 05.1 ng/mL [facility] Ferritin SerPl-mCncon 2022 Ferritin [Mass/Vol] 307.0 ng/mL High 14.7-205.1 [facility] Comment on above: Order Comment: Speci men Type: BLOOD SPECIMENOrdering Facility: [facility] Address: [address] [address] Performed By: #### 2 276-4, 05961-3 ####[facility] LABCLIA [id number] [address] [place] Iron and Iron binding capaci ty panel 02-06-2023 Iron [Mass/Vol] 97 ug/dL 41 - 186 ug/dL [facility] Iron binding capacity [Mass/Vol] 308 ug/dL 232 - 386 ug/dL [facility] Iron/TIBC [Molar ratio] 31.5 % 15.0 - 57.0 % [facility] Iron [Mass/Vol] 97 ug/dL Normal 41-186 [facility] Comment on above: Order Comment: Speci men Type: BLOOD SPECIMENOrdering Facility: [facility] Address: [address] [id number] Performed By: #### 2 276-4, 40288-7 ####[facility] LABCLIA [id number] [address] [place] Iron binding capacity [Mass/Vol] 308 ug/dL Normal 232-386 [facility] Comment on above: Order Comment: Speci men Type: BLOOD SPECIMENOrdering Facility: [facility] Address: [address] [id number] Performed By: #### 2 276-4, 80016-2 ####[facility] [id number] [address] OF [facility] Iron/TIBC [Molar ratio] 31.5 % Normal 15.0-57.0 [facility] Comment on above: Order Comment: Speci men Type: BLOOD SPECIMENOrdering Facility: [facility] Address: [address] [place] [address] Performed By: #### 2 276-4, 53909-5 ####[facility] [id number] [address] [place] Coding Summary.on 12-30-2022 Coding Summary. CD:[id number] G h0bWw+PGhlYWQ+DM7LWUN zS26yeHZdnY0xS0GDQCqR SywgQVBQTElOSyIgbmFtZ O9ykBFgVUBa IC8+SQ3nWWGkXertaOMsc 1Y6uLY7V75acs3iCEkfoE X4WGOqRbAmgjyby5ohiQf 6IDcuNmluOyBt QXShlJ90OMU1qS32Ee75p ZCtuOLhi8deiWo8YmNjLH NrFAK6vLwtUKpny0QyEPW dJ76ewDHba3B2 LJEngZcrbLQtBtZgqXH4k D0mGHlbrrftq6xddkxqXt f1yd39fDFaa7X2zMZ0W4I bshT1NROubXHi OvnzkQPXbT7tvaeas1esr gnzBgIcLYDkYTp6PPf6ND JtbTpgTdUtNH96PES8UQJ gupNrK4UgZAHo zWqlZqT2b7R1Rt6AQ9DEN gujK7ILCIOCKZuayQX+PC 93yg93E9BtYuqcKyh9TDG aJNQ1vHC4mW8t PYHoPDeyz4Z4aLT1C9Ncg nHdgy2pt3xjNXHcZFfcU8 4yfMMzp7L5IMWhyGG6GVL gjAckSaHtqK39 Oyc+BRBizNbnq6CaSqiga 7ryi1hsiIv1KbkcMUTdtb GttYcwKXH0k9WcJl0uPNW ezAB7cUG3lX8c XuJrQrN9WKvoO289VoYcr HLjYcisV91vX8VjsUU+PH AiOaz6GOCedZlrRC5bF2F hZGRpbmctbGVm sGteGM6fNBJwhuesPLEex Y9xDCDcA1p5YlTiGbK2SX mtC9OxNDUlbkmrYv69yN1 yHxLvHsL0KOso V5WisrD0MJJvcGNrNXuoL SQ3E95ec4L5POBgMQAyIS D6jJI4bB9epSblkwnbuKK mdDsgdmVydGlj RViqRKgbM365MCAipIdmM kNvZGluZyBEYXRlOiAgMD MvMTMvMjAyMzwvdGQ+PHR yNMQ5pDztVBHm wJGiFNyfJo0ujTxlmVimI K4cTWZdlyehFSBydT2dGY NdlTMenIqiFF3yEBHahvu jw187WlRtLRO4 PQBpwVCaQ5AznE2cHeCuS NCzZYAcO4NovYEcDEolB3 40XLylRfF5WROtquUsX4N sLWFsaWduOiB0 g8K0Ih6Wm2EqrwddJ7Koj THjXoGfRhcwXDs9K1ZtMt wvdHI+GI10NUStMG12TSe 1GTF9aHgzQCej HVRsF9SujJ7bAeLwUEKpZ GRkOyc+PHRhYmxlIHdpZH RoPScxMDAlJyBzdHlsZT0 oVz2sBAZrUEBr uIxnaLNuJnUtu0noEHFgW VyiEJ9flYshC4GxxXC2SQ Lcq2j0Qh83F26cJ0VhuQM +YKKmoKS2wUD3 hR9gNjEzByC9LFmgA594W nOnqKHhCzcll7hju8ajpQ w8YpW9YEWnzsGyaLhnICS 4f2JcFb27T28t IHdpZHRoPSIxNSUiIHZhb Xrrzk3awR1nYw2+PGNvbC H3kXL7zI3nNjOqKzA1DDv eQ078MtTttTZf Kkwrz8jig9dxzXv0YmTqC GFtfgWkfBixYYQ7c0UaHz 85T9IitJxuy7DoEyx8zo8 2wDDsb4K0qCE2 Q1IiKBNgiggkpLHdcAckD G0gVWVzolodJWXknE5nHQ JeD7v2BoIzVzW9FUmeV8G mfsE9IMKyjNXn ZYBcjVIXiP4kbjmco0zsd lylMdNoZKMaQJs7QFs4TE QhkJopZdQxCRM4IgM7QLB 3wXXixG3ovLjx jbpfhP8pYyn+JPF4dTUyp HOQEA3eSrmtwRM+PHRkIH V7vNruQWqlRORbkM1kPQL mH6v3ZbGpJoU5 XBtsP0JvyaY2HNJudKZsP BBrqTNCwR2fvjzoj5tmlr xdFrXzLMKzPEh4CLo4WNU saWduOiBsZWZ0 FvR5JEQ4oWBniK4qqArol bysdW6qFrn+QmlydGggRG D5GTr4L9SvGls2DFJbrJx eLV7hkMOaUWir Fx5nlNwylGgaNP1nGYOof xdka334WsFak7ogCCAjyG GoUCxdENQ4F40fn8Q0ZWM bOKKuFVG9sZH0 eC8kvFrssvrcdWNneValq dHvfIypLCqmAJznH080FZ OdxHquGtAsFKa0C6BlWow 3QRCpkFxwGG9j uNQfVRkvEq1trWwayYpqL Q5yLDPjblbne869VpXri3 arFCEjlHGjDZijSIB4D91 df8Z1ZULrWHHq SXK1dGD0vA6zuTqucxvqm GVmdDsgdmVydGljYWwtYW prS435EYMbmQqrUcArlPh 8V7FzWvp7RHSm hOxoVY9ycJRlTNfkMc0ct AfwrYqvHH0zWGKsemqjv1 02MmCgt4azGWDdsGZnPRc aRHN5L20jc2B0 SDGuVSZaKBV4wOX4bC3cv GlnbjogbGVmdDsgdmVydG buLUupOFcdF373WXGiiMi nPlBhdGllbnQg KWztDOt8P8PfZesiaQA+P R43RMBdEH95kAMblCFgp1 hywZp1PtWdQGEvXFO5bRd bBDmtu0GoPKTq Y05rnHQnz4D3SQTedEydg XMoJbZcvGM7gZ2yCKovlp yjf6ekdmfsHngls8agnx8 1dG16N96cSLaz ZHRoPSIzMCUiIHZhbGlnb k6xrI1bRf5+TQZacBV9tZ Z9bQ6bREBwSkY5KVoyH00 9InRvcCIvPjxj e8gdl0xwvNo4YpO8VSObj tGsrYmsEZW9p4JqSn74R2 9sIHdpZHRoPSIyMCUiIHZ taNnpii2cqH8t Ii8+LJRsjQO6oQY9mK6oB sLlCdU7UEyeO233KsZadY RwBvqdY86gI7VsoMK+PHR aWuz7FRYeuQsz QP9ikQOpIEyjPf4nACV1K yJcRrEuMXalR6LkZOHead yqbchnlYA2QZEsVZZepG7 5Mc8ljWfiGZXi xFXBxD3lbkysg3enfhrwM vGmGSQnPOm1HIq5NJAngD lqPzIuXOP2IiX5NCO1mQN itI9cuNmchinf uP7oD8IrTNKwoanhNx27d G9vRpSpKtM1FIpwYry+Q0 nKAGEcGS6JNpGMXIL0A3K gDra6HBSezDaj RN9fuMKsTOsfVj1qkRbpr VvzPM2xSKVwvttmAPKbyH 5nLXAmrYCcaZleTB3yQFG yreuyc930PfQv GXC2BLEveQPxT9OatN4kC pFaSNNbQZLvX8AneBTmEZ znC124NAogAuR6GYTfyaO uC9AhNQUweMuu ZyR6h9K2In4dFN9aJR7sQ TYjTY77DS34jIWaq5H6rX M4T6ScDPChkosdrfpvbQI 3ROTiMOHvkU96 bJVlNTefWo5nm9M8y524I VReTAShpZ70Kf1dySffIG KstANJaK2uincci5gyzil gIzAwMDAwMDt0 DHk0VFTtwSwjKmJjTST4L bI0SEL9eETeuO8ylOpkyo lqxE9bMpx+ODIgWWVhcnM 3H6IdNoy6KLNf nBoiJY6slAIvPJnhUs6ix YouiWgsKM5nQNPqnixyGQ ThdH9lBLEzwLDdvAvfUY7 qZPFprtnlo819 TeZqKFT0VBFzgGWgK1Rsa D6cLoUoXRWiRNPjR0JwsX ChVCwvG142BPiiWsK9ODG aoxKsF6OaMOKr xDahRyG6m1K0Lb4QGF9uk LB2H3DnKpf8FWZscNjlVX 8qqWIsKWqhMp4etMqhsFm xRU1wWCKtucju JJIplG4uASXcuDHmfTqtV Y2jINBxnejio362ObTmVN V4UDBjdFYcT0EavN6tBkB dDTUqBTZgF0Pv nWWnYQchP839FSnfPvQ4J PYbrbWuY7CrTPEtvJqxBp Z6c7O1Rl2SSNbsQU5rwbH iIA0cgsJ6M7Hm PjwvdHI+FN66UZPxEX73q ZCwiTZay8rzsTn6PrKqTX JbXVX6cNosKFzxg4QcYCQ qS87qhQVre5Z4 EBCgdPafcUDpKzFzbQG3u M6zUBzvgdqvu4wenfhkUr vyk7nave70gQ18T08iEKu pZHRoPSIzMCUi BBVkkNiuje4xpI5mCy9+P ICbyVE8rFA1bD0vYeEeLv W5IMtlK859ArMitAUsHkg ct8vuq9ljbDe1 PpMqFQQyivXxxXgnCQN1x 6VpFj54Y45yIMroIUTtXK UzXFJcCROnlBwdrn3dhA6 wIi8+GX5ot2em et21xK26bLD+PJCeVBN2k VfzQUjlPZTyxB8pJSuqMr G9PSClCdZdyV21fGQeNIe cUo1lfWfkbNrm DT4mMWVwvinml508KcDyz 9ukZCQywFZyWDkbWHE6F3 8hm0E0OUQuORXeTWP2tFP 2bM4sfHumldeu bGVmdDsgdmVydGljYWwtY WduO381KJKfiYupFaLpnN RfH0dblxKCNW5aAmokqCK +CRRnGOD7yCms OGnrWRPgsE6yHXJvK7j0Q qWsChI7EZejP3QummN9XC NokGMwDWNgcYAHdU9vsyk pg2wbotwyGlGf OFUcYSg8LNk6AZZjyClhV qQnRKE1RoZ0WEJ7vGGbqJ 4qzDowbsjntI8eXho+Rkl OOjwvdGQ+PHRk LYH3vVggENvoGDDgrL4hG NSkU5a2KpDeOhB4CDbcR1 PlqlR0AKKynSQzRWDhlLD WkH9qzljcn1kj vwmnPlYqTMNlDRr3HVp9S EZfaDdcJpVvPTJ4XcO9AW P1fNGjbX3jtBcuqbrfeK4 wOyc+TVJOOjwv dGQ+XLNeAWO5kUosOYkhK KWirR0eCOJwJ3z3HzOfEs M2TFaxD3ZuceS8OFOhaID gNFDuiDQKgM0e xwshi2vgjpmcByQdPJOmW Db6TJp7XMSiiUaqXoZoEP P5KeP4EYZ4tZVsdI4byLg oaznspL8jBsz+ DJP8QPW4QB47WE37U2ZiY jwvdGFibGU+PHRhYmxlIH dpZHRoPScxMDAlJyBzdHl vUM2vKm5qDDHi LWNv (more content not included)... Normal [facility] Consent for Treatmenton Consent for Treatment [facility] [id number]# 1.00CD:127 Normal [facility] Legal Correspondence Officeo n 12-26-2022 Legal Correspondence Office . [id number]# 1.00CD:127 Normal [facility] Office/Clinic Note-Physician on 12-26-2022 Office/Clinic Note-Physician [id number]#1. 00CD:127 Normal [facility] Patient Correspondenceon Patient Correspondence . [id number]#1. 00CD:127 Normal [facility] Patient Correspondence ..[id number]#1. 00CD:127 Normal [facility] Patient Correspondence [id number]#1. 00CD:127 Normal [facility] Patient History Officeon Patient History Office .[id number]#1. 00CD:127 Normal [facility] CBC W Auto Differential pane l (Bld)on 12-25-2022 Basophils (Bld) [#/Vol] 0.04 10*3/uL Normal <0.11 [facility] Comment on above: Order Comment: Speci men Type: BLOOD SPECIMENOrdering Facility: [facility] Address: [address] [address] Performed By: #### 5 7021-8 ####[facility]CL[facility] [id number] [place] [address] Basophils/100 WBC (Bld) 0.9 % Normal [facility] Comment on above: Order Comment: Speci men Type: BLOOD SPECIMENOrdering Facility: [facility] Address: [address] [address] Performed By: #### 5 7021-8 ####[facility]CL[facility] [id number] [place] [address] Differential cell count method Nom (Bld) Auto Normal [facility] Comment on above: Order Comment: Speci men Type: BLOOD SPECIMENOrdering Facility: [facility] Address: [address] [address] Performed By: #### 5 7021-8 ####[facility]CL[facility] [id number] [place] [address] Eosinophils (Bld) [#/Vol] 0.21 10*3/uL Normal <0.46 [facility] Comment on above: Order Comment: Speci men Type: BLOOD SPECIMENOrdering Facility: [facility] Address: [address] [address] Performed By: #### 5 7021-8 ####[facility]CL[facility] [id number] [place] [address] Eosinophils/100 WBC (Bld) 4.8 % Normal [facility] Comment on above: Order Comment: Speci men Type: BLOOD SPECIMENOrdering Facility: [facility] Address: [address] [place] [address] Performed By: #### 5 7021-8 ####[facility]CL[facility] [id number] [place] [address] Erythrocyte distribution width (RBC) [Ratio] 13.1 % Normal 11.5-15.0 [facility] Comment on above: Order Comment: Speci men Type: BLOOD SPECIMENOrdering Facility: [facility] Address: [address] [place] [address] Performed By: #### 5 7021-8 ####[facility] LABIA [id number] [place] [address] Hematocrit (Bld) [Volume fraction] 32.5 % Low 36.0-46.0 [facility] Comment on above: Order Comment: Speci men Type: BLOOD SPECIMENOrdering Facility: [facility] Address: [address] [place] [address] Performed By: #### 5 7021-8 ####[facility]CL[facility] [id number] [place] [address] Hemoglobin (Bld) [Mass/Vol] 10.5 g/dL Low 11.5-15.5 [facility] Comment on above: Order Comment: Speci men Type: BLOOD SPECIMENOrdering Facility: [facility] Address: [address] [place] [address] Performed By: #### 5 7021-8 ####[facility] LABIA [id number] [place] [address] Immature granulocytes (Bld) [#/Vol] 10*3/uL Normal <0.10 [facility] Comment on above: Order Comment: Speci men Type: BLOOD SPECIMENOrdering Facility: [facility] Address: [address] [place] [address] Performed By: #### 5 7021-8 ####[facility] LABCLIA [id number] [place] [address] Immature granulocytes/100 WBC (Bld) 0.5 % Normal [facility] Comment on above: Order Comment: Speci men Type: BLOOD SPECIMENOrdering Facility: [facility] Address: [address] [place] [address] Performed By: #### 5 7021-8 ####[facility]CL[facility] [id number] [place] [address] Lymphocytes (Bld) [#/Vol] 1.27 10*3/uL Normal 1.00-4.00 [facility] Comment on above: Order Comment: Speci men Type: BLOOD SPECIMENOrdering Facility: [facility] Address: [address] [place] [address] Performed By: #### 5 7021-8 ####[facility] LABIA [id number] [place] [address] Lymphocytes/100 WBC (Bld) 29.3 % Normal [facility] Comment on above: Order Comment: Speci men Type: BLOOD SPECIMENOrdering Facility: [facility] Address: [address] [place] [address] Performed By: #### 5 7021-8 ####[facility]CLIA [id number] [place] [address] MCH (RBC) [Entitic mass] 33.8 pg Normal 26.0-34.0 [facility] Comment on above: Order Comment: Speci men Type: BLOOD SPECIMENOrdering Facility: [facility] Address: [address] [place] [address] Performed By: #### 5 7021-8 ####[facility]CL[facility] [id number] [place] [address] MCHC (RBC) [Mass/Vol] 32.3 g/dL Normal 30.5-36.0 [facility] Comment on above: Order Comment: Speci men Type: BLOOD SPECIMENOrdering Facility: [facility] Address: [address] [place] [address] Performed By: #### 5 7021-8 ####[facility]CL[facility] [id number] [place] [address] MCV (RBC) [Entitic vol] 104.5 fL High 80.0-100.0 [facility] Comment on above: Order Comment: Speci men Type: BLOOD SPECIMENOrdering Facility: [facility] Address: [address] [place] [address] Performed By: #### 5 7021-8 ####[facility] LABCLIA [id number] [place] [address] Monocytes (Bld) [#/Vol] 0.43 10*3/uL Normal <0.87 [facility] Comment on above: Order Comment: Speci men Type: BLOOD SPECIMENOrdering Facility: [facility] Address: [address] [place] [address] Performed By: #### 5 7021-8 ####[facility] [id number] [place] [address] Monocytes/100 WBC (Bld) 9.9 % Normal [facility] Comment on above: Order Comment: Speci men Type: BLOOD SPECIMENOrdering Facility: [facility] Address: [address] [place] [address] Performed By: #### 5 7021-8 ####[facility]IA [id number] [place] [address] Neutrophils (Bld) [#/Vol] 2.36 10*3/uL Normal 1.45-7.50 [facility] Comment on above: Order Comment: Speci men Type: BLOOD SPECIMENOrdering Facility: [facility] Address: [address] [place] [address] Performed By: #### 5 7021-8 ####[facility] [id number] [place] [address] Neutrophils/100 WBC (Bld) 54.6 % Normal [facility] Comment on above: Order Comment: Speci men Type: BLOOD SPECIMENOrdering Facility: [facility] Address: [address] [place] [address] Performed By: #### 5 7021-8 ####[facility] [id number] [place] [address] Nucleated RBC (Bld) [#/Vol] 10*3/uL Normal <0.01 [facility] Comment on above: Order Comment: Speci men Type: BLOOD SPECIMENOrdering Facility: [facility] Address: [address] [place] [address] Performed By: #### 5 7021-8 ####[facility] [id number] [place] [address] Nucleated RBC/100 WBC (Bld) [Ratio] 0.0 /100 WBC Normal [facility] Comment on above: Order Comment: Speci men Type: BLOOD SPECIMENOrdering Facility: [facility] Address: [address] [place] [address] Performed By: #### 5 7021-8 ####[facility] [id number] [place] [address] Platelet mean volume (Bld) [Entitic vol] 8.9 fL Low 9.0-12.7 [facility] Comment on above: Order Comment: Speci men Type: BLOOD SPECIMENOrdering Facility: [facility] Address: [address] [place] [address] Performed By: #### 5 7021-8 ####[facility] [id number] [place] [address] Platelets (Bld) [#/Vol] 191 10*3/uL Normal 150-400 [facility] Comment on above: Order Comment: Speci men Type: BLOOD SPECIMENOrdering Facility: [facility] Address: [address] [place] [address] Performed By: #### 5 7021-8 ####[facility] [id number] [place] [address] RBC (Bld) [#/Vol] 3.11 10*6/uL Low 3.90-5.20 [facility] Comment on above: Order Comment: Speci men Type: BLOOD SPECIMENOrdering Facility: [facility] Address: [address] [place] [address] Performed By: #### 5 7021-8 ####[facility] [id number] [place] [address] WBC (Bld) [#/Vol] 4.33 10*3/uL Normal 3.70-11.00 [facility] Comment on above: Order Comment: Speci men Type: BLOOD SPECIMENOrdering Facility: [facility] Address: [address] [place] [address] Performed By: #### 5 7021-8 ####[facility]IA [id number] [place] [address] MG MAMM SCREEN 3D SHARIF CADon 12-11-2022 MG MAMM SCREEN 3D SHARIF CAD Patient: HENRIETTA MAGANA Exam Date: 12/11/2022 : 1940 Gender:F Ordering : DR ALEX LLOYD D.O. Admission #: [id number] Family : Order #: [id number] CLICK HERE TO VIEW EXAM RADIOLOGY REPORT [...] Treatments None Family Cancers None LOCATION: [facility] BREAST COMPOSITION: Almost entirely fatty. FINDINGS: DIAGNOSTIC [...] Kendall M.D. on 12/12/2022 at 13:54 Normal [facility] PROF CHEM 8 (BAS METB)on Anion gap [Moles/Vol] 11.9 mmol/L Normal [facility] Comment on above: Performed By: #### U RTPCR #### [facility] [address] [address] [address] Ashley Luna Calcium [Mass/Vol] 9.2 mg/dL Normal 8.5-10.1 [facility] Comment on above: Performed By: #### U RTPCR #### [facility] [address] [address] [address] Ashley Luna Chloride [Moles/Vol] 102 mmol/L Normal 98-107 [facility] Comment on above: Performed By: #### U RTPCR #### [facility] [address] [address] [address] Ashley Luna CO2 [Moles/Vol] 28.4 mmol/L Normal 21.0-32.0 [facility] Comment on above: Performed By: #### U RTPCR #### [facility] [address] [address] [address] Ashley Luna Creatinine [Mass/Vol] 1.68 mg/dL Critically high 0.55-1.02 [facility] Comment on above: Performed By: #### U RTPCR #### [facility] [address] [address] [address] Ashley Luna EGFR-AF MOROCCAN 35 mL/min/1.73m2 Critically low >=60 [facility] Comment on above: Performed By: #### U RTPCR #### [facility] [address] [address] [address] Ashley Luna EGFR-NON AF MOROCCAN 29 mL/min/1.73m2 Critically low >=60 [facility] Comment on above: Performed By: #### U RTPCR #### [facility] [address] [address] [address] Ashley Luna Glucose [Mass/Vol] 265 mg/dL Critically high 74-106 T [facility] Comment on above: Performed By: #### U RTPCR #### [facility] [address] [address] [address] Ashley Luna Potassium [Moles/Vol] 4.3 mmol/L Normal 3.5-5.1 [facility] Comment on above: Performed By: #### U RTPCR #### [facility] [address] [address] [address] Ashley Luna Sodium [Moles/Vol] 138 mmol/L Normal 136-145 [facility] Comment on above: Performed By: #### U RTPCR #### [facility] [address] [place] [address] Dr. Ashley Luna Urea nitrogen [Mass/Vol] 38.0 mg/dL Critically high 7.0-18.0 [facility] Comment on above: Performed By: #### U RTPCR #### [facility] [address] [address] [address] Ashley Luna Urea nitrogen/Creatinine [Mass ratio] 22.6 mg/mg Normal [facility] Comment on above: Performed By: #### U RTPCR #### [facility] [address] [address] [address] Ashley Luna VITAMIN D 25 OHon 12-11-2022 VIT D 25-OH 36.2 ng/mL Normal [facility] Comment on above: Performed By: #### U RTPCR #### [facility] [address] [place] [address] Dr. Ashley Luna VIT D RANGES SEE BELOW Normal [facility] Comment on above: Result Comment: <20 ng/mL Vit D deficient 20 - <30 ng/mL Vit D insufficient 30 - 100 ng/mL Vit D sufficient >100 ng/mL Potential Toxicity Performed By: #### U RTPCR #### [facility] [address] [place] [address] Dr. Ashley Luna PTH INTACTon 11-19-2022 PTH, Intact 20 pg/mL Normal 15-65 [facility] Comment on above: Performed By: #### P THINT #### [facility] [address] [place] [address] Dr. Ashley Luna HEMOGRAM AND PLATELon 2022 Hematocrit (Bld) [Volume fraction] 32.9 % Critically low 36.0-48.0 [facility] Comment on above: Performed By: #### V ITAD #### [facility] [address] [place] [address] Dr. Ashley Luna Hemoglobin (Bld) [Mass/Vol] 11.1 g/dL Critically low 12.0-16.0 [facility] Comment on above: Performed By: #### V ITAD #### [facility] [address] [place] [address] Dr. Ashley Luna MCH (RBC) [Entitic mass] 33.4 pg Normal 26.7-34.0 [facility] Comment on above: Performed By: #### V ITAD #### [facility] [address] [place] [address] Dr. Ashley Luna MCHC (RBC) [Mass/Vol] 33.7 g/dL Normal 29.9-35.2 [facility] Comment on above: Performed By: #### V ITAD #### [facility] [address] [place] [address] Dr. Ashley Luna MCV (RBC) [Entitic vol] 99.1 fL Critically high 81.0-99.0 [facility] Comment on above: Performed By: #### V ITAD #### [facility] [address] [address] [address] Ashley Luna PLT 195 103/ul Normal 150-450 [facility] Comment on above: Performed By: #### V ITAD #### [facility] [address] [address] [address] Ashley Luna RBC 3.32 106/ul Critically low 4.20-5.40 [facility] Comment on above: Performed By: #### V ITAD #### [facility] [address] [address] [address] Ashley Luna WBC 7.6 103/ul Normal 4.0-11.0 [facility] Comment on above: Performed By: #### V ITAD #### [facility] [address] [place] [address] Dr. Ashley Luna MAGNESIUMon 11-18-2022 Magnesium [Mass/Vol] 1.6 mg/dL Critically low 1.8-2.4 [facility] Comment on above: Performed By: #### U GABRIELE, RENAL, MG #### [facility] [address] [place] [address] Dr. Ashley Luna RENAL FUNCTION PANELon 11-18 Albumin [Mass/Vol] 3.3 g/dL Critically low 3.4-5.0 [facility] Comment on above: Performed By: #### U GABRIELE, RENAL, MG #### [facility] [address] [place] [address] Dr. Ashley Luna Calcium [Mass/Vol] 9.9 mg/dL Normal 8.5-10.1 [facility] Comment on above: Performed By: #### U GABRIELE, RENAL, MG #### [facility] [address] [place] [address] Dr. Ashley Luna Chloride [Moles/Vol] 100 mmol/L Normal 98-107 [facility] Comment on above: Performed By: #### U GABRIELE, RENAL, MG #### [facility] [address] [place] [address] Dr. Ashley Luna CO2 [Moles/Vol] 28.4 mmol/L Normal 21.0-32.0 [facility] Comment on above: Performed By: #### U GABRIELE, RENAL, MG #### [facility] [address] [place] [address] Dr. Ashley Luna Creatinine [Mass/Vol] 1.56 mg/dL Critically high 0.55-1.02 [facility] Comment on above: Performed By: #### U GABRIELE, RENAL, MG #### [facility] [address] [place] [address] Dr. Ashley Luna EGFR-AF MOROCCAN 39 mL/min/1.73m2 Critically low >=60 [facility] Comment on above: Performed By: #### U GABRIELE, RENAL, MG #### [facility] [address] [place] [address] Dr. Ashley Luna EGFR-NON AF MOROCCAN 32 mL/min/1.73m2 Critically low >=60 [facility] Comment on above: Performed By: #### U GABRIELE, RENAL, MG #### [facility] [address] [place] [address] Dr. Ashley Luna Glucose [Mass/Vol] 197 mg/dL Critically high 74-106 [facility] Comment on above: Performed By: #### U GABRIELE, RENAL, MG #### [facility] [address] [place] [address] Dr. Ashley Luna Phosphate [Mass/Vol] 3.5 mg/dL Normal 2.6-4.7 [facility] Comment on above: Performed By: #### U GABRIELE, RENAL, MG #### [facility] [address] [place] [address] Dr. Ashley Luna Potassium [Moles/Vol] 4.3 mmol/L Normal 3.5-5.1 [facility] Comment on above: Performed By: #### U GABRIELE, RENAL, MG #### [facility] [address] [place] [address] Dr. Ashley Luna Sodium [Moles/Vol] 136 mmol/L Normal 136-145 [facility] Comment on above: Performed By: #### U GABRIELE, RENAL, MG #### [facility] [address] [place] [address] Dr. Ashley Luna Urea nitrogen [Mass/Vol] 33.0 mg/dL Critically high 7.0-18.0 [facility] Comment on above: Performed By: #### U GABRIELE, RENAL, MG #### [facility] [address] [place] [address] Dr. Ashley Luna UA RANDOM W/MICROSCOPICon BACTERIA SMALL Abnormal NONE SEEN [facility] Comment on above: Performed By: #### U RTPCR #### [facility] [address] [place] [address] Dr. Ashley Luna Bilirubin Ql (U) Negative Normal NEGATIVE [facility] Comment on above: Performed By: #### U RTPCR #### [facility] [address] [place] [address] Dr. Ashley Luna CAST NONE SEEN Normal NONE SEEN [facility] Comment on above: Performed By: #### U RTPCR #### [facility] [address] [place] [address] Dr. Ashley Luna Clarity (U) CLEAR Normal CLEAR [facility] Comment on above: Performed By: #### U RTPCR #### [facility] [address] [place] [address] Dr. Ashley Luna Color (U) LT. YELLOW Normal YELLOW [facility] Comment on above: Performed By: #### U RTPCR #### [facility] [address] [place] [address] Dr. Ashley Luna Crystals LM Nom (Urine sed) NONE SEEN Normal NONE SEEN [facility] Comment on above: Performed By: #### U RTPCR #### [facility] [address] [place] [address] Dr. Ashley Luna Epithelial cells LM Ql (Urine sed) NONE SEEN Normal NONE SEEN /RARE [facility] Comment on above: Performed By: #### U RTPCR #### [facility] [address] [place] [address] Dr. Ashley Luna Glucose Ql (U) Negative Normal NEGATIVE [facility] Comment on above: Performed By: #### U RTPCR #### [facility] [address] [place] [address] Dr. Ashley Luna Hemoglobin Ql (U) TRACE-INTACT Abnormal NEGATIVE [facility] Comment on above: Performed By: #### U RTPCR #### [facility] [address] [place] [address] Dr. Ashley Luna Ketones Ql (U) Negative Normal NEGATIVE [facility] Comment on above: Performed By: #### U RTPCR #### [facility] [address] [place] [address] Dr. Ashley Luna LEUKOCYTES LARGE Abnormal NEGATIVE [facility] Comment on above: Performed By: #### U RTPCR #### [facility] [address] [place] [address] Dr. Ashley Luna MUCOUS NONE SEEN Normal NONE SEEN [facility] Comment on above: Performed By: #### U RTPCR #### [facility] [address] [place] [address] Dr. Ashley Luna Nitrite Ql (U) Negative Normal NEGATIVE [facility] Comment on above: Performed By: #### U RTPCR #### [facility] [address] [place] [address] Dr. Ashley Luna pH (U) 7.0 [pH] Normal 5-9 [facility] Comment on above: Performed By: #### U RTPCR #### [facility] [address] [place] [address] Dr. Ashley Luna RBC 0-2 Normal 0-2 [facility] Comment on above: Performed By: #### U RTPCR #### [facility] [address] [place] [address] Dr. Ashley Luna SPEC GRAVITY 1.010 Normal 1.005-<=1.025 [facility] Comment on above: Performed By: #### U RTPCR #### [facility] [address] [place] [address] Dr. Ashley Luna UA PROTEIN Negative Normal NEGATIVE/ TRACE [facility] Comment on above: Performed By: #### U RTPCR #### [facility] [address] [place] [address] Dr. Ashley Luna Urobilinogen Qn (U) 0.2 {Jaquan'U}/dL Normal 0.2 - 1. 0 [facility] Comment on above: Performed By: #### U RTPCR #### [facility] [address] [place] [address] Dr. Ashley Luna WBC 5-10 Abnormal NONE SEEN [facility] Comment on above: Performed By: #### U RTPCR #### [facility] [address] [place] [address] Dr. Ashley Luna URIC ACID SERUMon 11-18-2022 Urate [Mass/Vol] 6.9 mg/dL Critically high 2.6-6.0 [facility] Comment on above: Performed By: #### U GABRIELE, RENAL, MG #### [facility] [address] [place] [address] Dr. Ashley Luna URINE T PROTEIN CREAT RATIOo n 11-18-2022 Protein (U) [Mass/Vol] 25.6 mg/dL Critically high <=12.0 [facility] Comment on above: Performed By: #### U RTPCR #### [facility] [address] [place] [address] Dr. Ashley Luna UR PROT CREAT RAT 0.53 Normal [facility] Comment on above: Performed By: #### U RTPCR #### [facility] [address] [place] [address] Dr. Ashley Luna URINE CREAT 48.36 mg/dL Normal 20.00-300.00 [facility] Comment on above: Performed By: #### U RTPCR #### [facility] [address] [place] [address] Dr. Ashley Luna VITAMIN D 25 OHon 11-18-2022 VIT D 25-OH 35.7 ng/mL Normal [facility] Comment on above: Performed By: #### V ITAD #### [facility] [address] [place] [address] Dr. Ashley Luna VIT D RANGES SEE BELOW Normal [facility] Comment on above: Result Comment: <20 ng/mL Vit D deficient 20 - <30 ng/mL Vit D insufficient 30 - 100 ng/mL Vit D sufficient >100 ng/mL Potential Toxicity Performed By: #### V ITAD #### [facility] [address] [place], [place] [address] Dr. Ashley Luna CBC W Auto Differential pane l (Bld)on 11-11-2022 Basophils (Bld) [#/Vol] 0.04 10*3/uL Normal <0.11 [facility] Comment on above: Order Comment: Speci men Type: BLOOD SPECIMENOrdering Facility: [facility] Address: [address] [place] [address] Performed By: #### 5 7021-8 ####[facility] [id number] [place] [address] Basophils/100 WBC (Bld) 0.6 % Normal [facility] Comment on above: Order Comment: Speci men Type: BLOOD SPECIMENOrdering Facility: [facility] Address: [address] [place] [address] Performed By: #### 5 7021-8 ####[facility] [id number] [place] [address] Differential cell count method Nom (Bld) Auto Normal [facility] Comment on above: Order Comment: Speci men Type: BLOOD SPECIMENOrdering Facility: [facility] Address: [address] [place] [address] Performed By: #### 5 7021-8 ####[facility] [id number] [place] [address] Eosinophils (Bld) [#/Vol] 0.22 10*3/uL Normal <0.46 [facility] Comment on above: Order Comment: Speci men Type: BLOOD SPECIMENOrdering Facility: [facility] Address: [address] [place] [address] Performed By: #### 5 7021-8 ####[facility] [id number] [place] [address] Eosinophils/100 WBC (Bld) 3.5 % Normal [facility] Comment on above: Order Comment: Speci men Type: BLOOD SPECIMENOrdering Facility: [facility] Address: [address] [address] Performed By: #### 5 7021-8 ####[facility] [id number] [place] [address] Erythrocyte distribution width (RBC) [Ratio] 12.8 % Normal 11.5-15.0 [facility] Comment on above: Order Comment: Speci men Type: BLOOD SPECIMENOrdering Facility: [facility] Address: [address] [place] [address] Performed By: #### 5 7021-8 ####[facility] [id number] [place] [address] Hematocrit (Bld) [Volume fraction] 36.0 % Normal 36.0-46.0 [facility] Comment on above: Order Comment: Speci men Type: BLOOD SPECIMENOrdering Facility: [facility] Address: [address] [place] [address] Performed By: #### 5 7021-8 ####[facility] [id number] [place] [address] Hemoglobin (Bld) [Mass/Vol] 11.7 g/dL Normal 11.5-15.5 [facility] Comment on above: Order Comment: Speci men Type: BLOOD SPECIMENOrdering Facility: [facility] Address: [address] [place] [address] Performed By: #### 5 7021-8 ####[facility] [id number] [place] [address] Immature granulocytes (Bld) [#/Vol] 10*3/uL Normal <0.10 [facility] Comment on above: Order Comment: Speci men Type: BLOOD SPECIMENOrdering Facility: [facility] Address: [address] [place] [address] Performed By: #### 5 7021-8 ####[facility] [id number] [place] [address] Immature granulocytes/100 WBC (Bld) 0.3 % Normal [facility] Comment on above: Order Comment: Speci men Type: BLOOD SPECIMENOrdering Facility: [facility] Address: [address] [place] [address] Performed By: #### 5 7021-8 ####[facility] [id number] [place] [address] Lymphocytes (Bld) [#/Vol] 1.45 10*3/uL Normal 1.00-4.00 [facility] Comment on above: Order Comment: Speci men Type: BLOOD SPECIMENOrdering Facility: [facility] Address: [address] [place] [address] Performed By: #### 5 7021-8 ####[facility] [id number] [place] [address] Lymphocytes/100 WBC (Bld) 23.2 % Normal [facility] Comment on above: Order Comment: Speci men Type: BLOOD SPECIMENOrdering Facility: [facility] Address: [address] [place] [address] Performed By: #### 5 7021-8 ####[facility] [id number] [place] [address] MCH (RBC) [Entitic mass] 33.5 pg Normal 26.0-34.0 [facility] Comment on above: Order Comment: Speci men Type: BLOOD SPECIMENOrdering Facility: [facility] Address: [address] [place] [address] Performed By: #### 5 7021-8 ####[facility] [id number] [place] [address] MCHC (RBC) [Mass/Vol] 32.5 g/dL Normal 30.5-36.0 [facility] Comment on above: Order Comment: Speci men Type: BLOOD SPECIMENOrdering Facility: [facility] Address: [address] [place] [address] Performed By: #### 5 7021-8 ####[facility] [id number] [place] [address] MCV (RBC) [Entitic vol] 103.2 fL High 80.0-100.0 [facility] Comment on above: Order Comment: Speci men Type: BLOOD SPECIMENOrdering Facility: [facility] Address: [address] [place] [address] Performed By: #### 5 7021-8 ####[facility] [id number] [place] [address] Monocytes (Bld) [#/Vol] 0.42 10*3/uL Normal <0.87 [facility] Comment on above: Order Comment: Speci men Type: BLOOD SPECIMENOrdering Facility: [facility] Address: [address] [place] [address] Performed By: #### 5 7021-8 ####[facility] [id number] [place] [address] Monocytes/100 WBC (Bld) 6.7 % Normal [facility] Comment on above: Order Comment: Speci men Type: BLOOD SPECIMENOrdering Facility: [facility] Address: [address] [place] [address] Performed By: #### 5 7021-8 ####[facility] [id number] [place] [address] Neutrophils (Bld) [#/Vol] 4.09 10*3/uL Normal 1.45-7.50 [facility] Comment on above: Order Comment: Speci men Type: BLOOD SPECIMENOrdering Facility: [facility] Address: [address] [place] [address] Performed By: #### 5 7021-8 ####[facility] [id number] [place] [address] Neutrophils/100 WBC (Bld) 65.7 % Normal [facility] Comment on above: Order Comment: Speci men Type: BLOOD SPECIMENOrdering Facility: [facility] Address: [address] [place] [address] Performed By: #### 5 7021-8 ####[facility] [id number] [place] [address] Nucleated RBC (Bld) [#/Vol] 10*3/uL Normal <0.01 [facility] Comment on above: Order Comment: Speci men Type: BLOOD SPECIMENOrdering Facility: [facility] Address: [address] [place] [address] Performed By: #### 5 7021-8 ####[facility] [id number] [place] [address] Nucleated RBC/100 WBC (Bld) [Ratio] 0.0 /100 WBC Normal [facility] Comment on above: Order Comment: Speci men Type: BLOOD SPECIMENOrdering Facility: [facility] Address: [address] [address] Performed By: #### 5 7021-8 ####[facility] [id number] [place] [address] Platelet mean volume (Bld) [Entitic vol] 9.3 fL Normal 9.0-12.7 [facility] Comment on above: Order Comment: Speci men Type: BLOOD SPECIMENOrdering Facility: [facility] Address: [address] [address] Performed By: #### 5 7021-8 ####[facility] [id number] [place] [address] Platelets (Bld) [#/Vol] 211 10*3/uL Normal 150-400 [facility] Comment on above: Order Comment: Speci men Type: BLOOD SPECIMENOrdering Facility: [facility] Address: [address] [address] Performed By: #### 5 7021-8 ####[facility] [id number] [place] [address] RBC (Bld) [#/Vol] 3.49 10*6/uL Low 3.90-5.20 [facility] Comment on above: Order Comment: Speci men Type: BLOOD SPECIMENOrdering Facility: [facility] Address: [address] Performed By: #### 5 7021-8 ####[facility] [id number] [place] [address] WBC (Bld) [#/Vol] 6.24 10*3/uL Normal 3.70-11.00 [facility] Comment on above: Order Comment: Speci men Type: BLOOD SPECIMENOrdering Facility: [facility] Address: [address] [place] [address] Performed By: #### 5 7021-8 ####[facility] [id number] [place] [address] CNOVSPon 11-11-2022 [facility] Visit (SP) Office ([place]) HENRIETTA MAGANA ([id number]) 1940 F Date Time Provider Department 11/11/22 2:30 PM ATIF YOUSIF During your visit today, we recorded the following information about you: Temperature Pulse Respiration Blood pressure 97.4 degrees 84/minute 16/minute 124/77 Weight Height 69.9 kg 1.524 m Atif Yousif MD 11/13/2022 6:11 AM Signed PATIENT NAME: Henrietta Magana DATE: 11/11/2022 PRIMARY CARE PHYSICIAN: Dr. Alex Lloyd OTHER PHYSICIANS: Dr. Holedn (pain management), Dr. Flores, Dr. Amin Portions [...] 134 mg by mouth daily at bedtime. [id number] oil 300-1,000 mg cpDR Take by mouth. [...] to maintain (more content not included)... Normal [facility] metabolic 2000 panelon 11-11-2022 Albumin [Mass/Vol] 4.7 g/dL Normal 3.9-4.9 [facility] Comment on above: Order Comment: Speci men Type: BLOOD SPECIMENOrdering Facility: [facility] Address: [address] [place] [address] Performed By: #### 2 4323-8 ####[facility] [id number] [place] [address] ALP [Catalytic activity/Vol] 33 U/L Low 34-123 [facility] Comment on above: Order Comment: Speci men Type: BLOOD SPECIMENOrdering Facility: [facility] Address: [address] [address] Performed By: #### 2 4323-8 ####[facility] [id number] [place] [address] ALT [Catalytic activity/Vol] 14 U/L Normal 7-38 [facility] Comment on above: Order Comment: Speci men Type: BLOOD SPECIMENOrdering Facility: [facility] Address: [address] [address] Performed By: #### 2 4323-8 ####[facility] [id number] [place] [address] Anion gap [Moles/Vol] 12 mmol/L Normal 9-18 [facility] Comment on above: Order Comment: Speci men Type: BLOOD SPECIMENOrdering Facility: [facility] Address: [address] [address] Performed By: #### 2 4323-8 ####[facility] [id number] [place] [address] AST [Catalytic activity/Vol] 19 U/L Normal 13-35 [facility] Comment on above: Order Comment: Speci men Type: BLOOD SPECIMENOrdering Facility: [facility] Address: [address] [address] Performed By: #### 2 4323-8 ####[facility] [id number] [place] [address] Bilirubin [Mass/Vol] 0.2 mg/dL Normal 0.2-1.3 [facility] Comment on above: Order Comment: Speci men Type: BLOOD SPECIMENOrdering Facility: [facility] Address: [address] [place] [address] Performed By: #### 2 4323-8 ####[facility] [id number] [place] [address] Calcium [Mass/Vol] 9.9 mg/dL Normal 8.5-10.2 [facility] [facility] Comment on above: Order Comment: Speci men Type: BLOOD SPECIMENOrdering Facility: [facility] Address: [address] [place] [address] Performed By: #### 2 4323-8 ####[facility]CL[facility] [id number] [place] [address] Chloride [Moles/Vol] 99 mmol/L Normal 97-105 [facility] Comment on above: Order Comment: Speci men Type: BLOOD SPECIMENOrdering Facility: [facility] Address: [address] [place] [address] Performed By: #### 2 4323-8 ####[facility] [id number] [place] [address] CO2 [Moles/Vol] 26 mmol/L Normal 22-30 [facility] Comment on above: Order Comment: Speci men Type: BLOOD SPECIMENOrdering Facility: [facility] Address: [address] [place] [address] Performed By: #### 2 4323-8 ####[facility] [id number] [place] [address] Creatinine [Mass/Vol] 1.61 mg/dL High 0.58-0.96 [facility] Comment on above: Order Comment: Speci men Type: BLOOD SPECIMENOrdering Facility: [facility] Address: [address] [place] [address] Performed By: #### 2 4323-8 ####[facility]CL[facility] [id number] [place] [address] ESTIMATED GLOMERULAR FILTRATION RATE 32 mL/min/1.73m??? Low >=60 [facility] Comment on above: Order Comment: Margo hernandez Type: BLOOD SPECIMENOrdering Facility: [facility] Address: [address] [place] [address] Result Comment: Lady mated Glomerular Filtration Rate [...] By: #### 2 4323-8 ####[facility] [id number] [place] [address] Glucose [Mass/Vol] 285 mg/dL High 74-99 [facility] Comment on above: Order Comment: Margo mary Type: BLOOD SPECIMENOrdering Facility: [facility] Address: [address] [place] [address] Result Comment: The [place] [employer] (ADA) provides guidance for cutoff [...] Standards of Medical Care in Diabetes 2016, [place] [employer]. Diabetes Care. 2016.39(Suppl 1). Performed By: #### 2 4323-8 ####[facility]CL[facility] [id number] [place] [address] Potassium [Moles/Vol] 4.4 mmol/L Normal 3.7-5.1 [facility] Comment on above: Order Comment: Speci men Type: BLOOD SPECIMENOrdering Facility: [facility] Address: [address] [place] [address] Performed By: #### 2 4323-8 ####[facility]IA [id number] [place] [address] Protein [Mass/Vol] 7.3 g/dL Normal 6.3-8.0 [facility] Comment on above: Order Comment: Speci men Type: BLOOD SPECIMENOrdering Facility: [facility] Address: [address] [place] [address] Performed By: #### 2 4323-8 ####[facility]IA [id number] [place] [address] Sodium [Moles/Vol] 137 mmol/L Normal 136-144 [facility] Comment on above: Order Comment: Speci men Type: BLOOD SPECIMENOrdering Facility: [facility] Address: [address] [place] [address] Performed By: #### 2 4323-8 ####[facility]IA [id number] [place] [address] Urea nitrogen [Mass/Vol] 36 mg/dL High 7-21 [facility] Comment on above: Order Comment: Speci men Type: BLOOD SPECIMENOrdering Facility: [facility] Address: [address] [place] [address] Performed By: #### 2 4323-8 ####[facility] LABIA [id number] [place] [address] Coding Summary.on 10-15-2022 Coding Summary. CD:[id number] G h0bWw+PGhlYWQ+AD6XLOX rK01iwPBnxB6NY9jTSY5Q KUBJSYOXDU5FLX8psDC3F MzsE3PompIl VbeabNPwUX16WWj1AYJ3q QedTKpxpJ2ttMAtM3z7Gp EiRE86oX03IQbvJOTmVzP 3LjZpbjsgbWFy M7adZbGedGEiWop+PHRhY mxlIHdpZHRoPScxMDAlJy JrgLsfRP4eUt8tWTSsXIK vbGxhcHNlOiBj q6qzHBAkTAjhXY6ucMibL 6QhyMV4DXCcg5a2Nu62vO I+VMLsJJW8dCxvIQapy21 8OtSrc8soBCE0 dRAmUSkgEZN4Q27zo3R5B HQaYTIkUOX8gLY9nI2jiH gqbqrsH2LzmSDyVwJ3XDA 5jXWrjU6nuFzm lbhydO6aOtw+P70KRG6KM JANEJ3UNfq8K1GeQquhmA I+HM57DBAaCE26bLSsuDO ia3lsbDh8EnOx EHJgJPE8jJdoPFvqz1UoJ HMcH24acNRun1S3CNLlcA ofvONgJpUrmQS6nX3dTJo gdzstp0jttsrm Dutur9xksp04iP58R37uX LucRXYwZKU4MDXzRNWgoL xzpf5cmH3yTj8+DDovi7g ho9dplIr1ZxTi RGBurrOfdPodXPQ5m6DyV a78S6UyuRmuc9EkTff5gx 94hUJbz0F9sYB2ZUskDSC nuP3oDOccOxQ4 YDJrDxXmtK41gMWiMHokG v9rvSwmoJxvJZ8gELDhqt kgPQPbuW7wAHIgaKUgdFm rQP0sBFOgdvcv k754EaRuEEY8LMUlrJQvL 4QsoW2iFxSeRVLeTRQiK0 ZuzZOqKDbsM043EFkwKhH 2RTDidhMpY2Kd EKTahQhfOxH2m2G7Nj6Iw 8ZztxkhEVC8LBiiNOJaOr N2GfQdPyE5H7FsDxh6XBF sjIncZL2hY6Oz UVWlucxnhemcsPZ1LQBxT FJgfG71zUSqLJpuNv0py1 U5j773TOMgCDTezJ91Hb8 udDogMTBwdCBU uE8xixnov9zwgcuiLzQsN YTsNUb3QZe2AHNjoXbcNq FgPKL7IvO3REJ1pGLvkR2 nwQcwgnqhhM2p Oyc+I63jsW5eXLH0USR1z twxJJRxjiQpMR27MB76P0 RyPjwvdGFibGU+PGRpdiB kdLzsLH8cRsOz e8dvi6XkPLbiF9AvPXWjG QvgBfo0CUXiMAG6yUS4sM 0sCXKoCOcsm7D8fMK1Q7O qnmJhke5ui8rv LONoLPeiH94xpEKzi3T5J SOydRX6TQMfyUmfXaExnM 93Oyc+DQKuyDrvf0MoAqo qr9uct1bfzCh5 WbYsQRXoweUqmUgxKGO4r 2VaPg28T41fWBvzJDKkMM OtHUXvTEMbdOrhpv5izX3 wIi8+PGNvbCB3 bYZ3xZ9uDPXfLhG4NScmZ 820TeUdvDKuNnkel5tbw3 brcBl5KdYqYWGhrtPhsZe eWHZ7e6PeNq24 X75iRMuiCXFaSJUqNXKqJ UQruDlvhe2kgE1oVc6+PC 7wp5ggqm58iA90iEO+PHR gGRO7pKyjYGps YYJryM1rNKhgTnO0YNFzO mVgwR18cDOcIEoqJj6meS clkKqgZW5rDHAhycqfp31 4LfGkl6uuVSZg iKAcYAvtFXU9O89wq2C8F DEwRZMiCEE0iTW5cS1ksZ lnbjogbGVmdDsgdmVydGl wNLguADlrJ634 IHRvcDsnPlBhdGllbnQgT uIlGGl1S3YiZks4WHNdeF vjHT5wmBUjOHyvNd1hjAo ccXmgWB2tSBOd lvuoa722FhWwl5ewCKYrd BJsRCckXKC6D58sy6D5YH RqVRQrXGY6uNL0jE7etVo nbjogbGVmdDsg ifOueAbxNRljTQabW474L HRvcDsnPkJpcnRoIERhdG C4KN95UO71xIAtf1L0fWH 4N7VsLVJpfssl xsqifSK8NYFhBQYtsO40D j5lgHsrVv5mUPKdMCU8LZ YanKYkG1AckD0bQdQyTDH fTAHmG2CcpEUc FDixW960XZufAdY9BIEuq xXiI8DcFWHrbPxpNtX9r0 J9Xu1GJ4T6KE58VX99bEU pv1B0xEL5P2Nt IKGczygvclffiFZ2XIZzC NLqoB40Pd3rlMauVw6xUR DgUDM5VRXdvNMcC0BuqW2 yOiAjMDAwMDAw Y7IyqAMwQVvhN581IQgiZ nP5NXBvqeHjC2KiICNugE oqChW4x9M6Uu7JFZq3VC9 8TD11oEVkr8G5 sJM3M4EsKCMbzgkqykrql RJ4XIEbMAMmgA58By7byV iiRi6eWZMxBON0FADjrHA kK2AskE8gBsFg VANgANMpL4VfmZQfUJerE 002LSzkTdA9GOWshzYaI3 OvOUWonCrfQxE5b5A5Qg8 IMSSgWL25CVB1 uEK7FD90XJ99R0TpFxadp GFibGU+PHRhYmxlIHdpZH RoPScxMDAlJyBzdHlsZT0 eEk5iLPFeABBw qCbgsWEnHhDpg9roPLKgM BiuDV0ayJjzI6OyoVL7AX Vrv9w2Tv66W65eN2ZkfYV +GIZehAZ7fCP5 pN2sMkRuDoR1ASbmU461H uCepSIxHohtm8jbj2kohZ b7UaQ6RIFuhkTscJhiGQR 1g9KwKp13N51g IHdpZHRoPSIxNSUiIHZhb Cusqy2xaH5nMr3+PGNvbC K5gQB5sG8eYwFyYzN2AHr eV192KeDcuZWz Jtair0rms4pnoLl9QmEbQ GGqzdNygGgoWTH1x3KdTk 04B4DnpXikp3ZoGta5ej9 8rTVfk3T9oCO9 K4AxZMWknepplZSkbMfvB I8pIMKingpfDJTdxS3cJP QbZ4n9MlZmNkC5KMgnX5N bsbH5SDCylINb SGwuMHY7C63jz5Q0HJWoP WOzQVC9iVM7pA3fzAulzf ogbGVmdDsgdmVydGljYWw cODanJ762OOBz pGcaTNItxP7dRORnjDOcf FeuSW0iILOnfyosKbQKXS RBEUORCJ7VXANVHE16ZL2 3iZNkk4P0zKV9 N3YhFZAbxjycibeekLZ8K HHwHKHwgE77kVQtSZjyVm 9va0X9n235QOVoHNGpnF0 8Rq1uiAcqYXYs xZUAfH9fevtei3gyutzbK xAqRTYeMKz6QVh0BWTzkT rzOvXfZVE3KnN9SWX2iHM cpG3edCrsgxzu qQ8eOkl+TEKjTiSjBTm0J DwvdGQ+TTQyZRN6uWrlBG sqVIZjqH9qZCMsI2j9JpN xFxT0WRnpJ6Jr SXEgpeswMu59cT2lSzDvN eX0HRryZ4QyxnO2DRBbrQ AyUUdiHAU4K58ao8D1GRE hEXDhOUJ5mRQ4 xG5qsUaahzkcuENwqNtdu oQpoYsiCGxyIOreU715RN RvcDsnPjgyIFllYXJzPC9 8VZ12bDKxm5Z7 qCD9F2TbSPWvpaywhwyiw JU0JEMdGUQdgJ57hVTwPL npFx5wa9O8k802HWYlRTD zrL34Kb6rfAtg JXCpxQUZcU2hvkkyd0iys vqzPpBlABGuYEu8XQd4VY MbpVdaBxQaRPO1RvM2LPX 5lMVupF0jyIth tuleqF9cEvz+RmVtYWxlP L57JG91xRCdx6F4uEM4G9 PgYCCuwhpqffwfbZD0BEY uQXMjuG97yQJr BZkhMo7iq4R6d062QKStN NXidA91Hv4qlYxoLVBpgD GAoK6ndhoqz3tvplpnRpM jRZZlZWn0TPf2 VVLaeLzoRkWdEBM1YcI4E RJ9kFJtlC9cjUhjayzsuW 9wOyc+HKRwjgIREX6eP7U tJL68HZ48CR48 Z8MmFidovWNjcWT+PHRhY mxlIHdpZHRoPScxMDAlJy BzdTxmEE6bGx8mWGVjJII vbGxhcHNlOiBj t1nfXDWuXZemGK4jlRqoA 6VufVY2WBXuz1e1Ea83C5 7dU3EvpPY+FCHulVO3oFH 5fY0sMvBlZuQ2 ZPfnH096YkUzxSDyWwgcr 0xmg1kvfAd7ZtEhESNhfx EztAfeQHJ9f3ErUl99M78 sIHdpZHRoPSIy QYHjQDBfxJftcq4xtC7uF i8+MCDnrKJ6iBX8vM0pNj UoMoG4NQtkZ643UtLbqEI aCdpgV34qL8Au dXA+SKJpTyi8ARRxzOomW X6rgYRvCNndZj5lLKK6Fm DcHbZsFMpeK0WmQXDcmit mbpxyxOE1JPVr NZLxtQ14Pq9uiFvtGk5yD JKrJVR5GVBskJNfV2VsuM 4dYuLpHJNiUIWyM7LbwGT vWGzjG602KRwi FtM5ZLDwmsKnV9RmACZep EsdUeR1j1J1Ly3HyGyfmJ ByGJ9uCuEcUXd4C4WmQby 8RHVviHlcIM4t qCXpXDfwCr8wbXlmkAfxF Q7xJMZnzdoil474YdWou8 lzVJPgvSWgYRbuSTK6A69 nb9L8HTMhRRWf WNL5eFW8jZ1nnLyyrcmkr GVmdDsgdmVydGljYWwtYW eoJ220KKVivCndZyJBGra 3B0EuDmi4VDVm aHlrAQ6usYAqKVsmEt1hz AvwfZgnJO2xFGQcksifv6 10HfTho3yhLASidKLyIOl zGOT1P04ls0C9 OLXcGELpYHZ3aCK4eI8ki GlnbjogbGVmdDsgdmVydG laODhaUEiwJ444SXAxnTh yJq3KOdw0C7Ly Jjf3ITHkuMblVC5hiDIlO IwzYv1syHlocZemZK0pKB Kucroms547OdDou1hmWTH wcHQgVGltZXM7 Y09qd6M4QPYcEJHhVEQ2j FY1jL9ffZtftlxgdLZmzX fbmbPqdCwcALncMQqzO59 6IHRvcDsnPlBh eWVyOjwvdGQ+YZ59ug89N 2EdLlieGjf9NXYpPLD4kD S9kW1qCGIxLYxof3F0fUU 6F4GjliCmeu8b b2xs (more content not included)... Normal [facility] Consent for Treatmenton 09-20 Consent for Treatment [id number]# 1.00CD:127 Normal [facility] Office/Clinic Note-Physician on 10-10-2022 Office/Clinic Note-Physician [id number]# 1.00CD:127 Normal [facility] Patient Correspondenceon Patient Correspondence [id number]# 1.00CD:127 Normal [facility] Patient History Officeon Patient History Office [id number]# 1.00CD:127 Normal [facility] Basic metabolic 2000 panelon 09-16-2022 Anion gap [Moles/Vol] 8 mmol/L Low 9-18 [facility] Comment on above: Order Comment: Speci men Type: BLOOD SPECIMENOrdering Facility: [facility] Address: [address] [place] [address] Performed By: #### 2 4321-2 ####[facility] LABCL[facility] [id number] [place] [address] Calcium [Mass/Vol] 10.2 mg/dL Normal 8.5-10.2 [facility] Comment on above: Order Comment: Speci men Type: BLOOD SPECIMENOrdering Facility: [facility] Address: [address] [place] [address] Performed By: #### 2 4321-2 ####[facility]CL[facility] [id number] [place] [address] Chloride [Moles/Vol] 101 mmol/L Normal 97-105 [facility] Comment on above: Order Comment: Speci men Type: BLOOD SPECIMENOrdering Facility: [facility] Address: [address] [address] Performed By: #### 2 4321-2 ####[facility] LABCL[facility] [id number] [place] [address] CO2 [Moles/Vol] 29 mmol/L Normal 22-30 [facility] Comment on above: Order Comment: Speci men Type: BLOOD SPECIMENOrdering Facility: [facility] Address: [address] [place] [address] Performed By: #### 2 4321-2 ####[facility]CL[facility] [id number] [place] [address] Creatinine [Mass/Vol] 1.67 mg/dL High 0.58-0.96 [facility] Comment on above: Order Comment: Speci men Type: BLOOD SPECIMENOrdering Facility: [facility] Address: [address] [place] [address] Performed By: #### 2 4321-2 ####[facility]CL[facility] [id number] [place] [address] ESTIMATED GLOMERULAR FILTRATION RATE 30 mL/min/1.73m??? Low >=60 [facility] Comment on above: Order Comment: Speci men Type: BLOOD SPECIMENOrdering Facility: [facility] Address: [address] [place] [address] Result Comment: Lady mated Glomerular Filtration Rate [...] By: #### 2 4321-2 ####[facility]CL[facility] [id number] [place] [address] Glucose [Mass/Vol] 219 mg/dL High 74-99 [facility] Comment on above: Order Comment: Speci men Type: BLOOD SPECIMENOrdering Facility: [facility] Address: [address] [place], [place] [address] Result Comment: The [place] [employer] (ADA) provides guidance for cutoff [...] Standards of Medical Care in Diabetes 2016, [place] [employer]. Diabetes Care. 2016.39(Suppl 1). Performed By: #### 2 4321-2 ####[facility]CL[facility] [id number] [place] [address] Potassium [Moles/Vol] 4.4 mmol/L Normal 3.7-5.1 [facility] Comment on above: Order Comment: Speci men Type: BLOOD SPECIMENOrdering Facility: [facility] Address: [address] [place] [address] Performed By: #### 2 4321-2 ####[facility]CL[facility] [id number] [place] [address] Sodium [Moles/Vol] 138 mmol/L Normal 136-144 [facility] Comment on above: Order Comment: Speci men Type: BLOOD SPECIMENOrdering Facility: [facility] Address: [address] Performed By: #### 2 4321-2 ####[facility]CL[facility] [id number] [place] [address] Urea nitrogen [Mass/Vol] 34 mg/dL High 7-21 [facility] Comment on above: Order Comment: Speci men Type: BLOOD SPECIMENOrdering Facility: [facility] Address: [address] [place] [address] Performed By: #### 2 4321-2 ####[facility]CL[facility] [id number] [place] [address] CBC W Auto Differential pane l (Bld)on 09-16-2022 Basophils (Bld) [#/Vol] 0.05 10*3/uL Normal <0.11 [facility] Comment on above: Order Comment: Speci men Type: BLOOD SPECIMENOrdering Facility: [facility] Address: [address] [place] [address] Performed By: #### 5 7021-8 ####[facility] LABIA [id number] [place] [address] Basophils/100 WBC (Bld) 1.0 % Normal [facility] Comment on above: Order Comment: Speci men Type: BLOOD SPECIMENOrdering Facility: [facility] Address: [address] [place] [address] Performed By: #### 5 7021-8 ####[facility] LABIA [id number] [place] [address] Differential cell count method Nom (Bld) Auto Normal [facility] Comment on above: Order Comment: Speci men Type: BLOOD SPECIMENOrdering Facility: [facility] Address: [address] [place] [address] Performed By: #### 5 7021-8 ####[facility]CL[facility] [id number] [place] [address] Eosinophils (Bld) [#/Vol] 0.17 10*3/uL Normal <0.46 [facility] Comment on above: Order Comment: Speci men Type: BLOOD SPECIMENOrdering Facility: [facility] Address: [address] [place] [address] Performed By: #### 5 7021-8 ####[facility]CL[facility] [id number] [place] [address] Eosinophils/100 WBC (Bld) 3.2 % Normal [facility] Comment on above: Order Comment: Speci men Type: BLOOD SPECIMENOrdering Facility: [facility] Address: [address] [address] Performed By: #### 5 7021-8 ####[facility]CL[facility] [id number] [place] [address] Erythrocyte distribution width (RBC) [Ratio] 12.5 % Normal 11.5-15.0 [facility] Comment on above: Order Comment: Speci men Type: BLOOD SPECIMENOrdering Facility: [facility] Address: [address] [place] [address] Performed By: #### 5 7021-8 ####[facility]CL[facility] [id number] [place] [address] Hematocrit (Bld) [Volume fraction] 33.2 % Low 36.0-46.0 [facility] Comment on above: Order Comment: Speci men Type: BLOOD SPECIMENOrdering Facility: [facility] Address: [address] [place] [address] Performed By: #### 5 7021-8 ####[facility]CL[facility] [id number] [place] [address] Hemoglobin (Bld) [Mass/Vol] 10.8 g/dL Low 11.5-15.5 [facility] Comment on above: Order Comment: Speci men Type: BLOOD SPECIMENOrdering Facility: [facility] Address: [address] [address] Performed By: #### 5 7021-8 ####[facility]CL[facility] [id number] [place] [address] Immature granulocytes (Bld) [#/Vol] 10*3/uL Normal <0.10 [facility] Comment on above: Order Comment: Speci men Type: BLOOD SPECIMENOrdering Facility: [facility] Address: [address] [place] [address] Performed By: #### 5 7021-8 ####[facility]CL[facility] [id number] [place] [address] Immature granulocytes/100 WBC (Bld) 0.2 % Normal [facility] Comment on above: Order Comment: Speci men Type: BLOOD SPECIMENOrdering Facility: [facility] Address: [address] [place] [address] Performed By: #### 5 7021-8 ####[facility]CL[facility] [id number] [place] [address] Lymphocytes (Bld) [#/Vol] 1.36 10*3/uL Normal 1.00-4.00 [facility] Comment on above: Order Comment: Speci men Type: BLOOD SPECIMENOrdering Facility: [facility] Address: [address] [place] [address] Performed By: #### 5 7021-8 ####[facility]CL[facility] [id number] [place] [address] Lymphocytes/100 WBC (Bld) 25.9 % Normal [facility] Comment on above: Order Comment: Speci men Type: BLOOD SPECIMENOrdering Facility: [facility] Address: [address] [place] [address] Performed By: #### 5 7021-8 ####[facility]CL[facility] [id number] [place] [address] MCH (RBC) [Entitic mass] 33.4 pg Normal 26.0-34.0 [facility] Comment on above: Order Comment: Speci men Type: BLOOD SPECIMENOrdering Facility: [facility] Address: [address] [place] [address] Performed By: #### 5 7021-8 ####[facility]CL[facility] [id number] [place] [address] MCHC (RBC) [Mass/Vol] 32.5 g/dL Normal 30.5-36.0 [facility] Comment on above: Order Comment: Speci men Type: BLOOD SPECIMENOrdering Facility: [facility] Address: [address] [place] [address] Performed By: #### 5 7021-8 ####[facility]CL[facility] [id number] [place] [address] MCV (RBC) [Entitic vol] 102.8 fL High 80.0-100.0 [facility] Comment on above: Order Comment: Speci men Type: BLOOD SPECIMENOrdering Facility: [facility] Address: [address] [place] [address] Performed By: #### 5 7021-8 ####[facility]CL[facility] [id number] [place] [address] Monocytes (Bld) [#/Vol] 0.46 10*3/uL Normal <0.87 [facility] Comment on above: Order Comment: Speci men Type: BLOOD SPECIMENOrdering Facility: [facility] Address: [address] [address] Performed By: #### 5 7021-8 ####[facility]CL[facility] [id number] [place] [address] Monocytes/100 WBC (Bld) 8.8 % Normal [facility] Comment on above: Order Comment: Speci men Type: BLOOD SPECIMENOrdering Facility: [facility] Address: [address] [address] Performed By: #### 5 7021-8 ####[facility]CL[facility] [id number] [place] [address] Neutrophils (Bld) [#/Vol] 3.20 10*3/uL Normal 1.45-7.50 [facility] Comment on above: Order Comment: Speci men Type: BLOOD SPECIMENOrdering Facility: [facility] Address: [address] [place] [address] Performed By: #### 5 7021-8 ####[facility] LABCLIA [id number] [place] [address] Neutrophils/100 WBC (Bld) 60.9 % Normal [facility] Comment on above: Order Comment: Speci men Type: BLOOD SPECIMENOrdering Facility: [facility] Address: [address] [place] [address] Performed By: #### 5 7021-8 ####[facility] LABCLIA [id number] [place] [address] Nucleated RBC (Bld) [#/Vol] 10*3/uL Normal <0.01 [facility] Comment on above: Order Comment: Speci men Type: BLOOD SPECIMENOrdering Facility: [facility] Address: [address] [place] [address] Performed By: #### 5 7021-8 ####[facility] LABIA [id number] [place] [address] Nucleated RBC/100 WBC (Bld) [Ratio] 0.0 /100 WBC Normal [facility] Comment on above: Order Comment: Speci men Type: BLOOD SPECIMENOrdering Facility: [facility] Address: [address] [place] [address] Performed By: #### 5 7021-8 ####[facility] LABIA [id number] [place] [address] Platelet mean volume (Bld) [Entitic vol] 8.8 fL Low 9.0-12.7 [facility] Comment on above: Order Comment: Speci men Type: BLOOD SPECIMENOrdering Facility: [facility] Address: [address] [place] [address] Performed By: #### 5 7021-8 ####[facility] LABIA [id number] [place] [address] Platelets (Bld) [#/Vol] 191 10*3/uL Normal 150-400 [facility] Comment on above: Order Comment: Speci men Type: BLOOD SPECIMENOrdering Facility: [facility] Address: [address] [place], [place] [id number] Performed By: #### 5 7021-8 ####[facility] [id number] [place] [address] RBC (Bld) [#/Vol] 3.23 10*6/uL Low 3.90-5.20 [facility] Comment on above: Order Comment: Speci men Type: BLOOD SPECIMENOrdering Facility: [facility] Address: [address] [place] [address] Performed By: #### 5 7021-8 ####[facility] [id number] [place] [address] WBC (Bld) [#/Vol] 5.25 10*3/uL Normal 3.70-11.00 [facility] Comment on above: Order Comment: Speci men Type: BLOOD SPECIMENOrdering Facility: [facility] Address: [address] [place] [address] Performed By: #### 5 7021-8 ####[facility] [id number] [place] [address] CNOVSPon 09-16-2022 OVS Visit (SP) Office (HEMASA) HENRIETTA MAGANA ([id number]) 1940 F Date Time Provider Department 09/16/22 [...] 134 mg by mouth daily at bedtime. xlffl-5a-xjj-epa-fish oil 300-1,000 mg cpDR Take by mouth. [...] chronic renal (more content not included)... Normal [facility] KATIESherie 09-09-2022 CNPN Telephone (HEMTSA) RENATOHENRIETTA Vogt ([id number]) 1940 F Date Time Provider Department 09/09/22 [...] - Unknown Date Reviewed: 07/08/2022 Reviewed by: Nicole Gardner - Fully Assessed Reason for Visit: Lab Orders [3448] Primary Visit Diagnosis:Anemia of chronic renal failure, stage 3b (HCC) [N18.32, D63.1] Order(s):CBC + DIFF [SQCBCDIF] Order #: [id number] FUTURE BASIC METABOLIC PNL [SQBMP] Order #: [id number] FUTURE Prescriptions as of 09/09/2022 - oxyCODONE [...] mg by mouth daily at bedtime. - vkcle-8m-hcw-epa-fish oil 300-1,000 mg cpDR Take by mouth. [...] Status:Closed by ATIF YOUSIF on 09/09/22 Normal [facility] Comprehensive metabolic 2000 panelon 07-08-2022 Albumin [Mass/Vol] 4.0 g/dL 3.9 - 4.9 g/dL [facility] ALP [Catalytic activity/Vol] 27 U/L Low 34 - 123 U/L [facility] ALT [Catalytic activity/Vol] 12 U/L 7 - 38 U/L [facility] Anion gap [Moles/Vol] 9 mmol/L 9 - 18 mmol/L [facility] AST [Catalytic activity/Vol] 12 U/L Low 13 - 35 U/L [facility] Bilirubin [Mass/Vol] 0.3 mg/dL 0.2 - 1 .3 mg/dL [facility] Calcium [Mass/Vol] 9.6 mg/dL 8.5 - 10. 2 mg/dL [facility] Chloride [Moles/Vol] 101 mmol/L 97 - 10 5 mmol/L [facility] CO2 [Moles/Vol] 25 mmol/L 22 - 30 mmol/L [facility] Creatinine [Mass/Vol] 1.64 mg/dL High 0.58 - 0.96 mg/dL [facility] Estimated Glomerular Filtration Rate 31 mL/min/1.73m Low >=60 mL/min/1.73m [facility] Glucose [Mass/Vol] 240 mg/dL High 74 - 99 mg/dL [facility] Potassium [Moles/Vol] 4.1 mmol/L 3.7 - 5.1 mmol/L [facility] Protein [Mass/Vol] 6.2 g/dL Low 6.3 - 8.0 g/dL [facility] Sodium [Moles/Vol] 135 mmol/L Low 136 - 144 mmol/L [facility] Urea nitrogen [Mass/Vol] 31 mg/dL High 7 - 21 mg/dL [facility] FERRITIN BLDon 07-08-2022 Ferritin [Mass/Vol] 307.0 ng/mL High 14.7 - 2 05.1 ng/mL [facility] Iron and Iron binding capaci ty panelon 07-08-2022 Iron [Mass/Vol] 112 ug/dL 41 - 186 ug/dL [facility] Iron binding capacity [Mass/Vol] 322 ug/dL 232 - 386 ug/dL [facility] Iron/TIBC [Molar ratio] 34.8 % 15.0 - 57.0 % [facility] Coding Summary.on 06-26-2022 Coding Summary. CD:[id number] G h0bWw+PGhlYWQ+CH1OYDJ xI49qiLXcyG9FH8rIRL6M MICIITKNQG9UOF9uoSK3F BkwQ8LlnjEx VrvboSNpTT43HPi5RUP3g RdwCFbcnF0rpPVvE7c3Rg XuSO64mU40QOfnLNXjRrA 3LjZpbjsgbWFy S7huVjCtwCMbXhg+PHRhY mxlIHdpZHRoPScxMDAlJy QycKhfFS4lZy7iWEUnFIF vbGxhcHNlOiBj h8csFRHmAVxpNF4jaIyfC 1KtwFD0XSGpu0n1Si36uW I+PSBoNYE2jQgmKJlzt56 2TiCff5hkGXQ0 mZCjOPemZHL2S59cw3K8S OXqLYZxDID0rFB3vD6zbU mbezneC5CpgMLrNuM2QQC 6gLDmbI0oiOrq nrwshW5wWdk+Z13JUF3PK RNQGG4ADyu5X2OnJoswdP I+HP58USVuPL47jUEkdSE yy7hxvTx4ZnCx GXMhGQG5hEmuRViov4OoY EBvN53oeMQfk2H3IAZkiC oebBGaZcCgmPJ0rE5mIKu rbcbfe0rwsmku Nbqft4xnbq70xO97J20vR XlbVDMxXWJ9BXVtFFXexT kija1zfX0gIq6+WLajp7q wk4ndoFi7HsVl WYMqcbTizWtcUCU9r7NzU s46B7RqjSktc0CsYfm9re 97pLYks3V7aKO8MYvaIYC peJ1vCFunJcQ5 BEOuVeRfhJ53pFZtOZrmC i5uqLcypIpzZS0uUYIdak otHMFidO7yKANheUWnhUd iDP4eFMLxxrvh y400IfBuZKQ1UQIkaHBhW 0CwhB5tLiNaDHBiERHaS1 PqiPXyQQlvY086DXerNmO 5ATXhjpGnM3Oy BYBxuNbbFsM6i1V7Tq4Eg 7EzrjjuMSG1SCniSSD8Av U0OuFsNvC3Z4TeIug7YET drDzsUI4fL0Xq XDQuisuljqqtlKD6MRSmS BSdoT15lNYsYZusWp1yz4 Q1p843LCBwFDJqwN55Zj7 udDogMTBwdCBU iY5afykbj0hgwiyhKlGlV YQiVTo2OLu9HHPamFiyFt EiCHF6EyA7KNV1tWFefE7 lvNidksrehG4a Oyc+V93oyM7mCHE0WIB3e gjxDFCpjvNqBF03KI90H0 RyPjwvdGFibGU+PGRpdiB iiNsmPX5yZfBk f1vbt8TeXHrqW4QuTLOvS CujBhu8XPIxMKC0eYK3sX 5cLLXlAVply3D5rGP9D6X eqkXepk7ie2tu KWBfRKfgN70veSJel8E5N VLnjZD7TQShuLdjFmXozF 93Oyc+DQUogWkic7LbRck ws8nrd7phdAb8 CfLqCTWxylGieZyvDDA1p 9ThUd12T00rHMadDRXrKF DrJCLsDKXlmWfyed0eiF8 wIi8+PGNvbCB3 hRI3aV7hLZNtMdR4QJjpD 125PmJnjEAeGmjvp5jrd8 avhLs7TmMnNADlkrAneOp gSFB4o9WtRl14 U92wYLsxEAAlPCIrRINgT UGxyNkayb3jjJ9rMd2+PC 7ee8medd06oB75uAT+PHR aAOP9xZndLTcf SDPuyN7qDWbyTaV4ALPuY uGxoS17fWSvQPmcLb8loV pzpLscKL5lALMemocwe41 6EjZre6wjCEXr fQItTRklOLM7Y00oi1X4T CWzWKNnEES8kME2qV7ulE lnbjogbGVmdDsgdmVydGl aNWusWRqoP266 IHRvcDsnPlBhdGllbnQgT aFqEVi7F6WmNzn4QHZuaP hqCN0lzCNbADpuMe5bhZl zrRcbOU4cEYZe mrtni278TfOzp8gvTGIzk ZSzXRxeZSF4H67xv6I3ND HsAEGlTWP6fOM8eB3ybHz nbjogbGVmdDsg rbRzrJbjVQzlAIgtP342C HRvcDsnPkJpcnRoIERhdG Y8SU40CT33uMKjv0H6oAM 6Z2PySNSxjacg awtbgNP4AQCkUCPujE04N y6scWdoLy8eHMZlEDH7ZY MppIUfT3VivO4zQcQoEHG mRJJuL9JsaDPy HRyoZ483GYxtRuT4NBEgl qKoN1NtYWUjsOiaRfU2n0 R9Ca8YU5U1NV54AZ47ePI jn0G4yYJ1Y9Rl UHEgtqppzishjNL2BVPtW XVywS98Jv1mwMbbJc1cRU AeOBF4QFWptUEcG8XjcY2 yOiAjMDAwMDAw L5DkoYFlWDogE679AUwjW yV7PPQaxzZeO6VnTIAjgO kaRgM5w6S9Cs1FMZu6VA3 7SO08jPBpw1O0 sYP5R0VaFFOufyqoqkcjq BM4RVIuDDViiG83Hr5leN zhOk1mWJTkFVD4SXXetRX oA9BqxL8vZvRg FLFaPAAsB1KduUIcCPzvD 911QNhhQlA2YLSszgPiF3 GqFFFnoNniUyY4w8G0At1 VZDMnKE46WVM6 sXX5YK50MH35U2TpPjzvk GFibGU+PHRhYmxlIHdpZH RoPScxMDAlJyBzdHlsZT0 yJl6yPLJeLTBx tJxrtGHnRgZqm6kgDGBkT ZafHM2thPxwU0WbbUD3RD Axp5f6Ya27Y64yG2HmeUJ +UPSbqQS2kQB8 zR0uEcXtUcN0OMeuQ284C rQwaLJuClems5ohp6ahrY g0WyQ1HLXsfsCedRuwITR 3w9DzTf44N99z IHdpZHRoPSIxNSUiIHZhb Uxukx7ysR7sDg3+PGNvbC Q9bWZ2oF2oMhGdAkN4BBq eZ024XyJqqFYv Xfaoz3xey7dxdUs8AeGsU UOrxuXtcEbwBQQ1c4IeGe 28H3LxkPogf3EoUgg8yq1 7aRHen2T4zAA7 C4DiRQRukhcjjBTvqPayM K2oTTDbhrxeECPyyU6yYM MtN0b0CkRwOmQ9SIppK4U wriS2XBLtoCNz SWqcFBT6F99eq7A2UBEcL HLlWNH1qAL0sL3wjTnagl ogbGVmdDsgdmVydGljYWw dCPdoY104XNJc wYyxRTRziM7iAGLrnGGmc VshYK2pQKXwkpaxVdWJLF JMROHMWR7UXRQCKT97RM0 9yTMga0R9rEI6 M2BxTXBmtzcnpkrxaZY3A KOfVGDlgY90aCReEXjcFd 3io8B3e140TSViBSLyeO2 0Jc2dfOhcFOAw yURFkX8jfpjgr4oiaeveN yOzBYGfJEv8HZi2RCKqnE hgWxZxYGF2ZnI6HQQ6mNQ quC3unFuxbavo gV8rFxg+BFIzRtCgQIs7P DwvdGQ+IHNfNFH7lQwwLY sbPEKwqW9aWYMuX3z9PzS cSvX7OWxzL3Yo YGJdzxpiLb33yC5nIyXzC bF6NDtkL5NyglP4VQGwwZ QrWPjcYEH3D94oi0R8IYV xKIMqYKV7hFE1 fP8ejEygtpqhwCBklDvxg xFodAspNEnqEYwjS153JL RvcDsnPjgyIFllYXJzPC9 9ZW75yVCzw9X0 sKU5L7TrSLXzagcxeijhe IT5TSKsYRRrwS29hZVvUW zxKn3tv9R4e300DOIiKZU tkO89Ma4nmUvw ZOHosCHFqQ6eijzxi8shg cclVgUiWIEvQAw4IGr6SC UkiDvvRyRkVJC7CvY6LIS 2zLMvfR0xiHff rkaowM0tZcf+RmVtYWxlP Z30HG98rADhs1S9yKX0A2 RnJWBfzyavbicehQH4HBE iIFXolY77bXCi AKnmTb4gp9R2l700MUJwT SDvoV42Pb4rrWajYFTjdG ZMuA4tqjukq7gzjkngWjF pXWIxPFm8QHf6 MCBakVxqPcIyCEB8QnZ3W SE4oHXwtM1dnPhxuehjbG 9wOyc+GPFvzxLIYK1rD4Y qLL98AY56QI12 A6HbDyeazDSqlIR+PHRhY mxlIHdpZHRoPScxMDAlJy RcwKheFM2iYy1xJVKmUZT vbGxhcHNlOiBj c2bzZYQyGUfeTR9nlQyeP 2CesWF9HJCih9q5Qf13Q6 5qS8IbsIU+EULdbRR3nOL 9tY8dNrUnRhV7 YFtuO869AzHahIEoArtoz 3vnh7etyBq3GgScOGToca VpnOwiKQY1c3OpPc99O21 sIHdpZHRoPSIy AMDuXGBgqHqezt8yjG1yL i8+YAAuxGS0pVP7pU7jTw ErOnY4KFvxQ823DgQjkTK dXptoA84iS0Mx dXA+OHAnYpu5GLJvfOwsM C7xlZPxVNrfCe8bVMY2Nw LuWkOpCBszG1WwAUWowwq nftuhqSN5AYPs TGVjnC88Vj9cfOaqEt0bS OCtSPO2LWPnvWBvJ7BedQ 1wTtLyOMDaJCKrS5HwzWL uSQzzX568JCji DdO7UQVocwTnY7IjMPQrn PqjCkL7m3Q9Fn5PgXrnnF UcTD0rKcVwZCu6E7NqNco 0LYAhpSbfKQ1s zBUxMNjfGt1gmTdprAszS B6fBUVwwrfwi304HgLpu4 zeHJPppDTcZPkhTAX9W02 gm1B2MCQuNGSz URG9lBN0eC4rlXtbaerlz GVmdDsgdmVydGljYWwtYW zvY525KZWujGshCrLOGoj 1Y5UoEsr5HZOc eAapFD1qgHBjDVpcPr7zu GeylGmfCT3hRPZvuelmt9 24GqQrn7bdVHRzkXZcWYu gVUO2O12vi8F3 BTBwVCPnMEO1eRS1fV0tv GlnbjogbGVmdDsgdmVydG omQKqeLQbwA118VAGccRr zMn4GYyq3G9Vl Iqf9WMNxfWotJP7sjGPfQ IiuOl2foVvbjPezMK4wHA Jpefvdb156RrInn9pwNFT wcHQgVGltZXM7 Y02kb4W6YZYpVELeLTF6a XT8oT5lfQrhxuflcTTosD ynugStkErsXTysPZsjP46 6IHRvcDsnPlBh eWVyOjwvdGQ+MN59jx66E 5SeVnrgZtw6QPOwTRD6uB J4nW2nDQYnAEiuk5W8eEQ 0F8NqtwAuur1h b2xs (more content not included)... Normal [facility] Consent for Treatmenton Consent for Treatment [id number]# 1.00CD:127 Normal [facility] Office/Clinic Note-Physician on 06-20-2022 Office/Clinic Note-Physician [id number]#1 .00CD:127 Normal [facility] Outside Records Officeon Outside Records Office [id number]#1 .00CD:127 Normal [facility] Patient Correspondenceon Patient Correspondence [id number]#1 .00CD:127 Normal [facility] Patient History Officeon Patient History Office [id number]#1 .00CD:127 Normal [facility] MRI [place] WO CONon 05-16-20 MRI [place] WO CON EXAMINATION: MRI [place] CON HISTORY: Low back pain , chronic [...] of little benefit. Electronically authenticated by: MERRILL BILL Date: 2022-05-16 07:56 Normal [facility] PTH INTACTon 05-16-2022 PTH, Intact 26 pg/mL Normal 15-65 [facility] Comment on above: Performed By: #### U RTPCR #### [facility] [address] [address] [address] Ashley Luna VIT D 25-OH LABCORPon 2021 Vitamin D, 25-Hydroxy 31.1 ng/mL Normal 30.0-100.0 [facility] Comment on above: Result Comment: Galina min D deficiency has been defined by the [employer] and an Endocrine Society practice guideline as a level of serum 25-OH vitamin D less than 20 ng/mL (1,2). The Endocrine Society went on to further define vitamin D insufficiency as a level between 21 and 29 ng/mL (2). 1. IOM ([employer]). 2010. Dietary reference intakes for calcium and D. [place]: The National Academies Press. 2. Casey MF, Constantino NC, Lauro NG, et al. Evaluation, treatment, and prevention of vitamin D deficiency: an Endocrine Society clinical practice guideline. JCEM. 2010; 96(7):1911-30. Performed By: #### V ITADLC #### [facility] [address] [address] [address] Ashley Luna HEMOGRAM AND PLATELon 2021 Hematocrit (Bld) [Volume fraction] 35.7 % Critically low 36.0-48.0 [facility] Comment on above: Performed By: #### H H #### [facility] [id number] Ashley Luna Hemoglobin (Bld) [Mass/Vol] 11.6 g/dL Critically low 12.0-16.0 [facility] Comment on above: Performed By: #### H H #### [facility] [address] [address] [address] Ashley Luna MCH (RBC) [Entitic mass] 33.3 pg Normal 26.7-34.0 [facility] Comment on above: Performed By: #### H H #### [facility] [address] [place] [address] Dr. Ashley Luna MCHC (RBC) [Mass/Vol] 32.5 g/dL Normal 29.9-35.2 [facility] Comment on above: Performed By: #### H H #### [facility] [address] [place] [address] Dr. Ashley Luna MCV (RBC) [Entitic vol] 102.6 fL Critically high 81.0-99.0 [facility] Comment on above: Performed By: #### H H #### [facility] [address] [place] [address] Dr. Ashley Luna PLT 240 103/ul Normal 150-450 [facility] Comment on above: Performed By: #### H H #### [facility] [address] [place] [address] Dr. Ashley Luna RBC 3.48 106/ul Critically low 4.20-5.40 [facility] Comment on above: Performed By: #### H H #### [facility] [address] [place] [address] Dr. Ashley Luna WBC 5.0 103/ul Normal 4.0-11.0 [facility] Comment on above: Performed By: #### H H #### [facility] [address] [place] [address] Dr. Ashley Luna MAGNESIUMon 05-15-2022 Magnesium [Mass/Vol] 1.8 mg/dL Normal 1.8-2.4 [facility] Comment on above: Performed By: #### U RTPCR #### [facility] [address] [place] [address] Dr. Ashley Luna RENAL FUNCTION PANELon 05-15 Albumin [Mass/Vol] 3.4 g/dL Normal 3.4-5.0 [facility] Comment on above: Performed By: #### U RTPCR #### [facility] [address] [place] [address] Dr. Ashley Luna Calcium [Mass/Vol] 9.4 mg/dL Normal 8.5-10.1 [facility] Comment on above: Performed By: #### U RTPCR #### [facility] [address] [address] [address] Ashley Luna Chloride [Moles/Vol] 103 mmol/L Normal 98-107 [facility] Comment on above: Performed By: #### U RTPCR #### [facility] [address] [address] [address] Ashley Luna CO2 [Moles/Vol] 27.8 mmol/L Normal 21.0-32.0 [facility] Comment on above: Performed By: #### U RTPCR #### [facility] [address] [place] [address] Dr. Ashley Luna Creatinine [Mass/Vol] 1.67 mg/dL Critically high 0.55-1.02 [facility] Comment on above: Performed By: #### U RTPCR #### [facility] [address] [place] [address] Dr. Ashley Luna EGFR-AF MOROCCAN 36 mL/min/1.73m2 Critically low >=60 [facility] Comment on above: Performed By: #### U RTPCR #### [facility] [address] [place] [address] Dr. Ashley Luna EGFR-NON AF MOROCCAN 29 mL/min/1.73m2 Critically low >=60 [facility] Comment on above: Performed By: #### U RTPCR #### [facility] [address] [address] [address] Ashley Luna Glucose [Mass/Vol] 152 mg/dL Critically high 74-106 [facility] Comment on above: Performed By: #### U RTPCR #### [facility] [address] [address] [address] Ashley Luna Phosphate [Mass/Vol] 3.5 mg/dL Normal 2.6-4.7 [facility] Comment on above: Performed By: #### U RTPCR #### [facility] [address] [address] [address] Ashley Luna Potassium [Moles/Vol] 4.3 mmol/L Normal 3.5-5.1 [facility] Comment on above: Performed By: #### U RTPCR #### [facility] [address] [place] [address] Dr. Ashley Luna Sodium [Moles/Vol] 139 mmol/L Normal 136-145 [facility] Comment on above: Performed By: #### U RTPCR #### [facility] [address] [place] [address] Dr. Ashley Luna Urea nitrogen [Mass/Vol] 41.0 mg/dL Critically high 7.0-18.0 [facility] Comment on above: Performed By: #### U RTPCR #### [facility] [address] [place] [address] Dr. Ashley Luna UA RANDOM W/MICROSCOPICon BACTERIA LARGE Abnormal NONE SEEN [facility] Comment on above: Performed By: #### U AMIC #### [facility] [address] [place] [address] Dr. Ashley Luna Bilirubin Ql (U) Negative Normal NEGATIVE [facility] Comment on above: Performed By: #### U AMIC #### [facility] [address] [place] [address] Dr. Ashley Luna CAST NONE SEEN Normal NONE SEEN [facility] Comment on above: Performed By: #### U AMIC #### [facility] [address] [place] [address] Dr. Ashley Luna Clarity (U) CLEAR Normal CLEAR [facility] Comment on above: Performed By: #### U AMIC #### [facility] [address] [place] [address] Dr. Ashley Luna Color (U) LT. YELLOW Normal YELLOW [facility] Comment on above: Performed By: #### U AMIC #### [facility] [address] [place] [address] Dr. Ashley Luna Crystals LM Nom (Urine sed) NONE SEEN Normal NONE SEEN [facility] Comment on above: Performed By: #### U AMIC #### [facility] [address] [address] [address] Ashley Luna Epithelial cells LM Ql (Urine sed) FEW Abnormal NONE SEEN /RARE [facility] Comment on above: Performed By: #### U AMIC #### [facility] [address] [address] [address] Ashley Luna Glucose Ql (U) Negative Normal NEGATIVE [facility] Comment on above: Performed By: #### U AMIC #### [facility] [address] [address] [address] Ashley Luna Hemoglobin Ql (U) TRACE-INTACT Abnormal NEGATIVE [facility] Comment on above: Performed By: #### U AMIC #### [facility] [address] [address] [address] Ashley Luna Ketones Ql (U) Negative Normal NEGATIVE [facility] Comment on above: Performed By: #### U AMIC #### [facility] [address] [address] [address] Ashley Luna LEUKOCYTES MODERATE Abnormal NEGATIVE [facility] Comment on above: Performed By: #### U AMIC #### [facility] [address] [address] [address] Ashley Luna MUCOUS NONE SEEN Normal NONE SEEN [facility] Comment on above: Performed By: #### U AMIC #### [facility] [address] [place] [address] Dr. Ashley Luna Nitrite Ql (U) Positive Abnormal NEGATIVE [facility] Comment on above: Performed By: #### U AMIC #### [facility] [address] [address] [address] Ashley Luna pH (U) 5.5 [pH] Normal 5-9 [facility] Comment on above: Performed By: #### U AMIC #### [facility] [address] [place] [address] Dr. Ashley Luna RBC 2-5 Abnormal 0-2 [facility] Comment on above: Performed By: #### U AMIC #### [facility] [address] [place] [address] Dr. Ashley Luna SPEC GRAVITY 1.020 Normal 1.005-<=1.025 [facility] Comment on above: Performed By: #### U AMIC #### [facility] [address] [place] [address] Dr. Ashley Luna UA PROTEIN Negative Normal NEGATIVE/ TRACE [facility] Comment on above: Performed By: #### U AMIC #### [facility] [address] [place] [address] Dr. Ashley Luna Urobilinogen Qn (U) 0.2 {Jaquan'U}/dL Normal 0.2 - 1. 0 [facility] Comment on above: Performed By: #### U AMIC #### [facility] [address] [place] [address] Dr. Ashley Luna WBC 75-100 Abnormal NONE SEEN [facility] Comment on above: Performed By: #### U AMIC #### [facility] [address] [place] [address] Dr. Ashley Luna URIC ACID SERUMon 05-15-2022 Urate [Mass/Vol] 7.3 mg/dL Critically high 2.6-6.0 [facility] Comment on above: Performed By: #### U RTPCR #### [facility] [address] [place] [address] Dr. Ashley Luna URINE T PROTEIN CREAT RATIOo n 05-15-2022 Protein (U) [Mass/Vol] 14.6 mg/dL Critically high <=12.0 [facility] Comment on above: Performed By: #### U RTPCR #### [facility] [address] [place] [address] Dr. Ashley Luna UR PROT CREAT RAT 0.26 Normal [facility] Comment on above: Performed By: #### U RTPCR #### [facility] [address] [place] [address] Dr. Ashley Luna URINE CREAT 56.96 mg/dL Normal 20.00-300.00 [facility] Comment on above: Performed By: #### U RTPCR #### [facility] [address] [place] [address] Dr. Ashley Luna Coding Summary.on 05-06-2022 Coding Summary. CD:[id number] G h0bWw+PGhlYWQ+RC3QABV rK99qdMSiwB6LQ1hJOO2Q HROJWXARGT6SCM5xrHI4X GpfV3KkruOb MgjpkLZqDH25CXr0UPU3t HdlKZoetB8zkDIyX5c5Hc RzKZ83oX30EMenDBFrDaK 3LjZpbjsgbWFy I3wiOyGwnBBxHun+PHRhY mxlIHdpZHRoPScxMDAlJy GyjOecON3sZf1cRXHhMMG vbGxhcHNlOiBj c0yjFXFfJIuqJO6afOowO 9KrqBF7ZYEvt2h4Bl49lV I+OFJxMET7pJibZNnej65 5UeVrd5zxFFV5 qRVqVHvlWPP5X55in1R9T HGtPZOlADK0iRR0yT4vzL xwfujiQ7MzxYAdQzY6JSL 5yXGokO3mgJzx rnkwoF2tOvo+N73EMK5RV GADSB5QBxa1K1NjIrifiO I+TD36JBGgGZ44kRXtyBW oc6zorJl7JmXt LGXbXBV8cBxyWZjiz5SuG AKcO30rnRNdz5B6DWAbdW ltoIZiAaKpoAX6wC6vZPe ssdaur6njpbes Ncgtp3xqpm82yB11S39pX GwvXGXzQRK4LZEqXKOmaD eoym6rcK0kHu0+NWaab2k on4kcpGa0SiNn ZBSrnwMvtEcbEBG6i8VvZ f73F8TuwYfuf7TuUuw8ic 61qNPgm8A6tBV6XUaxQPF laK3xRCcpBaW2 JEGhZiUcxX19gRCfYMsnR r4tmJjeyEhkLT3dDUCfec rxNSBrsQ5eZKEvqYRxrVq mHZ0iTFOaspob n437YaXmBAK0CUPhqOJwQ 6HfqW5gMhVgEAGgPIViR2 CvsWJySMntZ121MEqnXiU 5OQColqYqM9Xy AAFgzSeaAmW8w3C4Ch7Rd 6OqtuppHIJ2HLhuFUS9Ik L5IfKdZwN6C9UmPly5FHX drXghTI2eT9Dn YQWpcqzeyuyiaVT3YMVqQ PFuuA41uKJqBZuuYe3fg6 T9w785AXReMIWmjW37Mo8 udDogMTBwdCBU tV5kfypes3vwwdguZkEbH THyBYx1HWg8XWTmoWjsSv EwOGE4AaI1TVD1cNUhpT8 zgCohqvjmmI6z Oyc+B60vrR1zCTL2CUD5s tgaGVDnweClKY04UQ71F9 RyPjwvdGFibGU+PGRpdiB xxChzJB3tYeCe b9pzl3OmWHliB7QjJRZtS AjcObz6ZARhSLT7gPB4tV 1mDVXjGKijh3X3wWL6C0L hbgYeqt4xk6oz CIVwHQmdY88zeJApd9B2E TDaxFP1QBAefTivWoFfkP 93Oyc+YQIquQkaw7JmXve kx6azb4mukQq9 XgQnJRNhjxRpuRwpZJB0j 7YbGz52S38gZXgkVXMpMS LuULQiJTQjdYvibr5esN6 wIi8+PGNvbCB3 tVX3eG7gYYOmUlH7IBjoK 601TwLuwRQmMnpdu6gsx3 epfFi9DwCgBOUnxiSarAl kHUU7j0LxYx88 T31oHQerQREgLSZcCPLxR MMrfVtbhm8skB1pIn8+PC 0sq9hvva16zV52mOK+PHR rEYE6bHaoYWes BXRunT3zWCwnYeA0WZMqY mKfgU59tBPlGDlhYb0mdE wikKhxVZ2nWHFfxfqxc95 1SzHtj9orLAPl jEIbNTjsHWW9C43ek5Z4G RTrFIQiLLY2qFV1fI5snA lnbjogbGVmdDsgdmVydGl hMMlsPAaeM279 IHRvcDsnPlBhdGllbnQgT fHuUWc3V9QfEaw0WGWudA fwJR3rtWNaWYotFw2krLe lyKefZK6tTOFr uwyph971LsJpl5htKIRud KRxJJxnDPM3B50ew8M3HL KaYQFlYOK3zHI4rA1daOo nbjogbGVmdDsg ogOgbWdfWGxgMCltB803M HRvcDsnPkJpcnRoIERhdG L5OJ74UH00uFMgm2G9jAQ 0J4UcNQHmkrvl xvswwNK4HXNiWVRfrM52T f8wdRglKk5aVPGfKAF4SG OmqKMkV9AkhR3iLnCrTLY rZRDlK0XgvAOh XAeeL375SSqhBdT0NYZqk iVmD9RjVYHmwWslUgY0j9 K0Rr0YZ4A2VX54NX41xUG yd8E1mQZ6V0Hl DRXtmqbtaqugbFK5QYYfK TQacS24Lk5pfIsqYl1kHC KaEEI4BGMytTZkS7RpqR2 yOiAjMDAwMDAw B3UwzMVqQZjbW870FMvzB kT9HZVznoGgB1IpVSMriF dyGmQ8v0A1Fi6PTYr3FZ6 8NS95sPHec2D8 mRA8B0BmNECoddtsbsbsb HF2SQIcEPIqqF69Nh3umW qlNp9vIBVaROL8OXHirEJ hT0KgzZ9kAaHy JFHgFMSlQ0XyhKZoOHnqN 791SFnrItH1PZJvtzQsK8 ObCSDfwVlxAqQ9u8S8Zd6 TSKMxYV24ICW6 wKR4SA99SI10C9VfIlmyl GFibGU+PHRhYmxlIHdpZH RoPScxMDAlJyBzdHlsZT0 aWn6iAYXwFQNt zWzisFGfHfWdn6rvFEXmB IiaRX1nyBssI6LzvXI8FI Jiw1f0Sh16L55aV3PphWC +EGQonAL7aBD7 gA7uQwRhInT3THfsE553A wAwoIImQbwxw4uao7crbS c3ZbH7VZYwozWdxNmyWAO 9s7AsVa00U65r IHdpZHRoPSIxNSUiIHZhb Kxxll7ggT9uVi7+PGNvbC D2hQA9tB3fQnGtScE2BIr nT931VdRndCBd Oqmfh0tfh4sjcIc5TyJpO RFukpBfjItxPMD8i5YzIn 58A6TpzLbaf6WjCkf0ut5 2lBLpj7H3mIJ5 H7LaKOJqhcvmbPMysLhwS X7yOEOsmdtzMIFewH2vZB AhF7o4RjEmKcB0ZXxmP4F zcjY6BPCpsPXd KIqiBOM7T93lh5Y9GSQhC PWfTHF2uPL6iY2egDtqmf ogbGVmdDsgdmVydGljYWw kJLjeT984MRWt kLvzQWTmzD8lOZXlcTOcw PwoYN8cOARyrseoXzSSSI YVRJPFTQ0TPXIZQZ67HW5 8yXXqw2C6hKB8 S5AlJTQlsxybviluoTR7C BAsXRVdyE67aSWbIKitZo 8wi8N0v453ADCySAXftG4 9Ix9xyJehVMFv pYVTpD5gsmjkh9falqtjM lPsCBDeOHa5MGe4TNVawY vdYjCrFWJ9UdV8BKZ7eFG tsZ9rnEfujfbh yF8gHlh+TMPlIwPsVKv3E DwvdGQ+HUYuFNQ3gJndEB mpTOPgkO9gUCMnM5d4NkV aRmO9OJvyY1Nu OBSelxlwCo80cU5uZdQfK oY4IWqvL7MacaG3LVMfkR XpFQdsAOH2D35wm5H5OOD dTULyZIY8lPH6 fP6raUxhisuggFIarYzug pYowJifWHwuCQjpI126TQ RvcDsnPjgyIFllYXJzPC9 7FV92uNZta3B9 fBK8D7GdZNGdpefclbvav UB2FBJkEFXiuP32aOZzFO brBf5si8N8x453GFLkVQI qdC70Nr3emWcs PZOdxLBCtV1resoxo0gzk zwuZkVyQMSnCDn4RPu8NQ XpuDnhMsAbUPP9GnS1ZBN 5aCJhiF7avNsw axelmO1kPen+RmVtYWxlP U92CP73rWPve5Q6hLP7V3 ZuPYBfgecqirxdmKP4TKY sEOWbtI91sYEw PUewWp4cr9F9u288MMUiW DNcxL56Qm2ucZgrWLMnjQ IAmT0detobv4tbmwueSfR eCIHrSIs3KCk0 DMBtlZnkLoHrDCU1ZtZ2D JK8aIKajK6kaVvissbakS 9wOyc+MNMqdhLOMW8wB6P yLK47TC99FT07 M4GaVbyjsVGkqZB+PHRhY mxlIHdpZHRoPScxMDAlJy CkrBoxSQ6iPv7eWXEsJRJ vbGxhcHNlOiBj o0nkHHUgCGcsYI6muCbkN 3NlzWU6RWLzt7n8Zm23O7 0bU4SszNX+TUWvhDB9tBD 0fM2rNdBtVgK1 BSmxU879XkYllEYtCxjkp 8djq2pfcEy5MdYrPKXjlg QadQipVVY8i7LwTg93W82 sIHdpZHRoPSIy BLFhAXXizSzsuq5hgK9nF i8+FLQusNU9kZY7sK0rYc YxFfO3NHmsF783QbVpxFR lFpidA32jL6Ti dXA+MHGwGrc8FYIgiGetX F1ylREzHJonIr2aATS2Zs VaQaKtYUfpI6MkAXSiqdx haftrdOY8MWJj GKAkaY11Fh4vdZrbQt7eC QZiZRI0ABHdsTXkG0TtfR 5hJhGfYHRySPVpA4AcwGC aSFctO418CToq VqT0BCEvwkUvU5ZbPHJug XjiSiX4s4K0Oh3ZhYalrJ DrPE1pQsWgBBn4W4BhNpj 5LZOogRqkPW6x xAMzBEefSm6ncZigrTaeI C6dWNGyfatwy307HkTov4 wwBUDugCWqGNaySIA2B11 da5G3IEEdADKl OPV8gSM5yE8ksCnhzdocz GVmdDsgdmVydGljYWwtYW egD647XXLbgXapPmQXBza 6N7DjJar0XGDw iNkgFS5vpHPmHRtbFz9ut AqknKuhWF0eIAKbhegdq0 41SeAee4oyHQRhaUIuDZv aFOC9W84lz9D3 WBDzWEUwYQC3gSC5cO0up GlnbjogbGVmdDsgdmVydG sdMQpvZQlvD240ZVKprHb rZr1HGgz4C3Zv Jei0FLAurWkeHR1ybMPhR NjrBl6fxByxzBqyLQ2wLV Amirmmu578ObRpd7rzHPR wcHQgVGltZXM7 A10uv9Q1GHAvCHEiXQR7o QC0dC2ksNuufgxbzLOnfC dmipMbxLmvKKaqUIarF18 6IHRvcDsnPlBh eWVyOjwvdGQ+DR30yp38U 0GhCstpQqv9QUUgOOD2iX W1mN7lPKPfGGcpz8H3nWD 7V9ZrulVivq7i b2xs (more content not included)... Normal [facility] Consent for Treatmenton 04-19 Consent for Treatment [id number]# 1.00CD:127 Normal [facility] Office/Clinic Note-Physician on 05-02-2022 Office/Clinic Note-Physician [id number]# 1.00CD:[address] [facility] Patient Correspondenceon Patient Correspondence [id number]# 1.00CD:127 Normal [facility] Patient History Officeon Patient History Office [id number]# 1.00CD:[address] [facility] Coding Summary.on 03-14-2022 Coding Summary. CD:[id number] G h0bWw+PGhlYWQ+TH9IFEZ kP24qeOTziW4UP2qULN6D SQBDFFTOTH8PVR7ggMP0H NheW6LgveFt OpvfoCJrSX97TJl0YJU6q QkbYXzmrB1bxNWwS9s5Kh UsNR35jH45HRblKRPgDyF 3LjZpbjsgbWFy V5dwJzIqnTVpJfc+PHRhY mxlIHdpZHRoPScxMDAlJy XiiGdhLG4oGc9zGEKbEIT vbGxhcHNlOiBj v8mcTBLbFDnkTP2zeKmeF 8DhaFR8PYOwx4l1Zw19eA I+IQVxNGZ6gOntXHrez00 4NhSsp4btXKP4 mESoZLldJIE4K60kf3U7U FFzGERuMYT8sLY7oJ0efH wzddbpO6NllQBrRnJ1NSJ 7oZWggT0nfEaf tfgxbL2wCbp+A10VLC1SZ MDBVD0CZhx1L0SqZcjyeF I+IE61BNPlNH48qBDsfDG bv7xxbPa3LfKm DYEhYCM2yAbrRJnig9MgA HExD23icXYwq3W0AUPejJ jyiIMsWbUfsZF9jS5hQPz yefesd1boftyf Pvygr5bqmi22eD76Z79sZ BwoREFlYNY1RJRvQSEhyN utyc0osF3cTs7+RVjqi0d mh1szeIk0ThFx LFFbubQugSnaNLK1i2AjU g19L9HklYipi9AkOqn2cg 98ySGth6C7jME0XKfjCHH fwN0aUZvcGyO1 EWImFbAdgS79sAFuZHabT m2mbRlyiNjkDZ6yETKomv prVNOzfK1cUYBpcNOahUq yUX1oGZQitusw v733OvQhBME5AAUjcSToS 6IkuR0qPlBwOUGeNPRyX3 WngNKlOPobV722ZLziFeP 4XXEtdvVqP8Pr PFBpvMmuQxP0j8R4Jt5Xd 7XaakozEGW2GNxkGAU1Sm G0RyHmGwB3I9MzBql3QXH rzOetAS3eZ5As MYSqymdogvhbtEJ6JTAhT YSdoF20nTMmVCitIx1ww3 J0j229IYPfRSQzhZ57Tq0 udDogMTBwdCBU kJ4ghcwub1cxinxwOgXfO IBpUEo5XVa3OPIcnOqrYb QhDUA3ZoH3RKK2uUIhpH8 avVpoxzgmuJ7w Oyc+B25uyD3pCAT0FRX8h icbRJHmmvJiVG51PF02Q9 RyPjwvdGFibGU+PGRpdiB vkXhuMN6pLlJg n6kch2RmNOxvF8IuQEGyY TpcYpk1HMToSSP3iJJ9zY 4tJSQiJKuqu4H8mRK2M3L phiAecr1kg1yy NSVbFCjcL10qoWJpg9P3Q CUwoJB8EVBqkVbwXpWkiF 93Oyc+WWSfkGlzs1PmNqg gy0kit1awkIu0 CmJbFIUnxfKnxYruTPH7d 2OpHj79X32lZAxoJMOhRZ ZzRJFeVIGepDnqyc7hzN2 wIi8+PGNvbCB3 cQK9rV5dCZUpPgR0DLgbT 569PcNjqYBeTrkmu3qqu8 eygRg4VbLwSVWnjiXgjXi aLLT5y5BtFz06 F56jJAfmDOIiELSvKBFrC IKbyYdxdg7koC6nWs8+PC 7qy9umxc53cP89aZW+PHR gTGC0vOldRMvv DJLmxJ1sBKnpNdB0DFJhO aGgzK90oVBrYEqbJj2rjU bbcExvJV1cFNXsfmxun21 6MfQxm2cpZQIm rRKlLFazQEV7G80uw2Y5F IUtEFApCHY7hXH2nA1xhW lnbjogbGVmdDsgdmVydGl rPMdrHPkdF457 IHRvcDsnPlBhdGllbnQgT jPxUKo2L4IqTyd5LBJocZ xcAF3lvHTgAUmnLx6kpPc izXrbGQ5lBBQv rnfha734KzMnk0bxDGIlb GTzFHzkDGC5X70lg4B3XT ThLVMeTAZ6fYS1bM0psAe nbjogbGVmdDsg goFxsYzcUAbhICghP906H HRvcDsnPkJpcnRoIERhdG G4IY04GL58yCCkr4F5hGW 9U7YqNKVmybue colrmFF2CFOxQTEeaY98T s3yhYvgRz3zRQHeOTP9DD EljVUuV5WiqV3qEbQrIOE nXNZyR7LkiKMd KPtjF010JQiqRyB1PQWfk eUiZ0FyDVBvrQfcUmX2e9 M7Pe0MD5J7OL07HK61vNL jy4I8oZQ4X3Mg EAEpdesbhilhzPH2EZLhP DCejF43Uj1jeHmwOk2tYN HhBBN8MERpeGBoO6VjrJ9 yOiAjMDAwMDAw Y0PyzLXaRTtgD119CMkkJ mR6QZAyozQvU9QrFRPuxK czFbN2i3G2Ra9RKXi8BR4 3SQ75qZFjn0Z8 lUB5J3MtIXQsazjhstuzj LM3JBOcVPDvqY80Ic1reY zbFx9gRHVqKYF6EBVlzNB cC4NnhG8gAdUu OZEnLWDwY4AzbXVjGAhdM 100RSkwZeU7JDZslmCsD6 IuOQOqkSqlQkJ3t4V4Od5 UEETtSM42GTO3 hRC1IW23DG47Z2DyIrxir GFibGU+PHRhYmxlIHdpZH RoPScxMDAlJyBzdHlsZT0 hWt0vFXTcBZPf hMcikYQyTxBsc4vsHQTbV IvoHT1ymQesJ1UdeYY1CQ Gmo2p9To56D16mU8ItqHC +ZPKyrBA0dUJ1 jY6gQxJjIzV4ZTusZ608B eUzyJYxGmmmy2abo2tsxA v1McW7DFFkutTxcPkcBEQ 9x0GtCl14Q22z IHdpZHRoPSIxNSUiIHZhb Xxidk0wjQ7uDz7+PGNvbC P7kMN2eW8mGjFzDnI4QQf gK966VwXazAJo Nnpkg1zrl9tlnXr5GxCrB FOqaiOwkPqbUTG7o6UeSv 85X7BfyKlxv3PtWes5lr1 6nGZii1E3kCS8 C2UvBROxjmlfnKKxmLpjH N5aNZUdfukwSLJbuU2pJE RfG4p8TzLjDmJ7NTxvE6B vjmI6AGXrvGOa HSeiAES4H06gp1M0YHLlH RUgZMG2fYA7fX3gfHdkfq ogbGVmdDsgdmVydGljYWw yURxhJ039ZDDv kDcpKKHzwF2lIZMepQNmk CdxGV4vKNYalkscHeSGTO MPYFJTBC4MKGVHXO12OO8 4bJYbi0I8lPS3 B1MaJXBnifbvtjejuOV2S NDoEXZooN25kAVyIQfcEs 8ns5A3n975REViXHZkpV6 5Xz6qrXecBVRb cOBMaD0afozwb6baytisX gCmRYAbOQe3NOb1XXDafU dqYhPqHVT0CtL8IMA5nDF fvX9duSukefdz wH1qTxo+SCMxErIaWPo0L DwvdGQ+TRCdNIE0hSawPU waFTPxdL3yVNDmQ9p0JjA gSlC9XSzxZ7Or MGNywdumXx26rG1zZyPjS oN2FGuwQ0QlmwJ7RQErlJ VrQKimISV9X02vh6R0MWH iDFYdNLV8aDD6 hH3bcNiqtnsivRQhuDxfg iAqzMgdJGyxGDksH910ZA RvcDsnPjgyIFllYXJzPC9 2YT68zIDry2V7 uNC7O2NsEPBmwjxcbntwv LQ8WEPoMWGynB51wHLuHM azHz0fh4Y4k544MOBfVNH gxD99Vr0hdQeo TVYosVJUyI6jocrgz3dmn mtpIgWgGBOkFEk8VUi6QP ByzDxcXsYsLLL5YlS4RWL 9jNGhdL1jiZze sjkzgN8nXls+RmVtYWxlP M67VY79lBAra1S1rBN6J4 AmLBKpehngxnybePR9MLB zHNIoiE22iTTc SHlfTq3tu6A1f029JEKhU DYlsL49Yu4gmWyzZFBhdX IClQ4rcqqrd4agryjyWeL bQZSuYNc2JAw0 IDHfoMaoWkTyXXJ1TqT4A XW7hGUpjR3skCwbqcibeI 9wOyc+JWHuvxXEHG5fX1O jLO70YN38MP46 I2FtNimwtQQrbQX+PHRhY mxlIHdpZHRoPScxMDAlJy CjlLhvOM1jNm0vJYUgCFE vbGxhcHNlOiBj q3zbXPTjEMxiXC8ctVxsV 2QxyJW7CJLxn1o5Ml15Q3 4cO5LdaGB+SGVuzOU5wNQ 6sV4aClMbMbI1 VDjpN666RcVvkKRsClmvv 9yvg3trvTh7YqBbEMVyeb NscCzvJRA2p2PsUu48H08 sIHdpZHRoPSIy IGVaAKFnrTuquc8ihB1uI i8+UBUeqOA6iXC7dE9nVt ZuOqP7HVzyU475QcJkmRL rEsmyH98uC6Ad dXA+CWFeIts5DPSzbSvfR N3dwQUyVWuyTd3nXGB9Fd ZaKwDpHLxrI5OkVQEwjux gtmnvyQI8GYOl HZCocP62Ck8qjHzbVh7hV NPnJLW1EZLpbUClP9ZloI 8uWkTiEXViGHTzF5HtoYR dOIbfK654GMmn QkK7SKUgweOwN6AqCZRfo SxzLyE2c8B9Bg9AfSexxG JkAH9zJcZmZDs5P5YrIor 6FAMccElmSQ3y sFOpARqxOw1itHzhtGseH A3hZHFimdihq092FjGum7 kwVLRkcIDoLJptIOR0R67 uc9J0PDWjHGOu VKN1wTC3rX9ohWakjyidd GVmdDsgdmVydGljYWwtYW wgY941OIPlvOvyNvQCCrm 2X9OqIce6XRTj aKrhVN4nfZDjFFtsJq0ms SftfVtrWT7qLRGkuvbdq8 20BhZwh4ijKWVabFGhFYx wWHF7G72hq9Q5 PMZtJIGwEMG3dKQ5kR7ci GlnbjogbGVmdDsgdmVydG toNKbbZGviB026POXuiVm lUf7KFnw0W7Vp Nen6WKNuzQwlMX8weDRdZ DtcEs0fbBlwqEmcUE3dDP Qixqzrq344AtNol4ncIIX wcHQgVGltZXM7 T67sc8N0MSBcQAGsYTM3l AK2nM6ogZayuynclGIokI rbamSrsRqlCHbeFRjyU32 6IHRvcDsnPlBh eWVyOjwvdGQ+PD70xj97Y 6UaZsrbGhy2DCVrOOO3rI X6eM5rSYZlZMvrw1L4nBS 9S4XultAcpl4x b2xs (more content not included)... Normal [facility] Consent for Treatmenton Consent for Treatment 170..[id number] [facility] [id number]# 1.00CD:127 Normal [facility] Office/Clinic Note-Physician on 02-21-2022 Office/Clinic Note-Physician [id number]# 1.00CD:127 Normal [facility] Patient Correspondenceon Patient Correspondence [id number]# 1.00CD:127 Normal [facility] Patient History Officeon Patient History Office [id number]# 1.00CD:127 Normal [facility] Referrals Officeon Referrals Office [id number]# 1.00CD:127 Normal [facility] Radiology Outside Office Net Developer Software Engineer C yon 02-11-2022 Radiology Outside Office Copy [id number]#1 .00CD:127 Normal [facility] Radiology Outside Office Copy [id number]#1 .00CD:127 Normal [facility] Laboratory Outside Office Co pyon 01-08-2022 Laboratory Outside Office Copy [id number]#1 .00CD:127 Normal [facility] Coding Summary.on 01-02-2022 Coding Summary. CD:[id number] G h0bWw+PGhlYWQ+RS8VFEO sL05plVQbzT3WX8bXZN9K PPFYFMEBEA3IZF8bnSH8N JkuH8OjwnMb KlmahPKmTZ29NPi4GLS8b ZgiODneyB9fgHUbN9d6Xn KwEJ59dX94JNsiFSApClR 3LjZpbjsgbWFy V7hmLcTksTXqHuw+PHRhY mxlIHdpZHRoPScxMDAlJy PgiJvzIK2yNf0kDAOmRGE vbGxhcHNlOiBj c0ooOORcFJmjIO8qjDkxW 2GyvTT6WUPhz7b5Se64aQ I+CDHkBAV7kRexUIqho32 1CrKkc7zyIJA1 gNEvOXeqCLI6Y31fg9D8G TKeNRHnNSH7cNW8aQ2nfT uomkrzJ3RipUObMjF8YYF 8rOBdqD4pqMys ygnvhW4bKsj+C49AZU8JE RAUJF6ORqt4W9GzHsrfyF I+DR02GWLxJW50dEZcjEG lk7upqLy5YnKq EVAaGWJ5sOhuCEnub4LcQ ZBiZ38ffQOeq0D9DJAzbS qkzMWuTxAkxXT5aN4vKIc zwwccf2gsacue Uhlys6demm28zX12V88aV JicDIIvMZP6FUSaUQDkoH suik0bfW2zPt5+RCbhl8h lu7cusQe9WsAd VRCmniWbnMheUGQ8p0WeD l74L1MjwZbqt9CeUih5zc 31yNRwk6Q2eBG2LZoeCPD ywF6fCDmuHaR4 HPCeSyBkcY36bIZpHEmyM e6stDbwaWysKP8fVLQovo ilQVYmsR7iQSQfpTNeoZm vWH6wBNIenzpn w809NuAoQLR1THHbwSAqG 9TnyA9vJkOeYAEoNVNwD6 VjcFDcUAxuA189SPegZoQ 7BLWqxvQeC0Se XQFlnEfjQkG9b7E0Mg7Nt 6QmylecVSQ9HNktROYwQp A6EuVbGkW3W1VuFfy1SSM qtXjgOC9lK6No OBUtxpkgttnucUN0QEPhK PSolE95eHXxRUhtWz3un0 Z6j932EERtEQWalW87Pz9 udDogMTBwdCBU xM2adynfi0dumullKfEkR RPdXJc7ACl0MWEljBwwRn MlTQC7IoC7WZO2pETejJ8 rjKailtazaB8e Oyc+A66yoT3rIGH5TYG0y xxoLWNdkeQrHA99NA87T8 RyPjwvdGFibGU+PGRpdiB dlDbmBH1bBcVe p0pyj0PdUWgtQ8MnWURlE RvuAdn4FIRgRXZ9aQF0gP 7yMRDhZQqpu3D6aOJ9J6U pduIsmh4qm0pk ACSaLAzyX95rhPOvh5M2L GWbwVQ0EZLjpRjdGzCpxC 93Oyc+UCWhdKfij8UuOia cu9fne8iecLw1 HhUsTMTdvpCxaGhuUJM2n 6NtKu16G57fRTazNICzHD YoJRGnJFNfpGhwcw8crU9 wIi8+PGNvbCB3 aZG2aI8uXOTmAtZ9AWlqL 477OtKosDBxCgirp6pic5 xgvYp3UhUrLBYefmRfbKj aMTF6r1EjFp68 L02sZKevWFQrLOGsRJYwI TEteDfnar1rgB5bNy0+PC 3dt4rrtu65pU63kSD+PHR dXOD4dAmiPPge LCEqqO7xQJnuThU6GBVeB hAqeW07tNLgSOhmUv9euH objQrlZI7dUDTomcnrl10 7GpYyp0xwOPDp eJPdJHybXSN2S98vx8Z5X FPySDByIJK5qDN2kO0lwL lnbjogbGVmdDsgdmVydGl uAShsMXhnV786 IHRvcDsnPlBhdGllbnQgT lCeFYc0J0DaNgc7IRNutO zhKX5pbOWjDUvdZe3huOh sjIpgYZ2hLFOm mybvq954KgPoy1lgHOGbw XYmIGikOPA8H79ue4J6KE MpHMDzIIG8vWY1oY7ikGi nbjogbGVmdDsg qdWwcIcaCDhwMWmcH035W HRvcDsnPkJpcnRoIERhdG E1WX48JF67yEBsa2H8hFX 9C8QlFIRduqxt iyzjwRF3DAIrRAWcmE67J l7xpSzpMf9oBVJgKBC0PL FneMRmM3NvpM4qSeIgUMF sMUXxT2WlgZGk GTvyT260ULcgKmX1SZYwo jKaD4ZzDNCeaOtmHwK2t5 K4Yz4BA9Q9EN00MG55dOU fp8X8fUY1Z8Gx LUGksbjixubqbWU3TMKgN RBxwX67Fl1kkMaxYo4uNC GxVRB8IRXbaLYpN1BncX7 yOiAjMDAwMDAw O6SwgQOyUHurG267TGosK hZ4LNSrppCoE5GgOZHzpN gtHeO2s3O1Tw9SZKc1QM8 7YP33rVKmc8T1 gOX3O2KbNRYnmfxoequto OW6WXLjYAGluL08Ef5rfK eyVk6uRWZoQBK1RAPzaWU jO9LllV4qVbUy EIXbHYCrZ8AreTZhGIpcR 975IDzlUsO8USFlndIxV2 PdKHQtyRieVxX9z5D5Ho8 ZWJFqTC92QJI3 rES3ZJ28ZV24Q8BjTosju GFibGU+PHRhYmxlIHdpZH RoPScxMDAlJyBzdHlsZT0 fIc5cUYMcLJHm wXcagFHnSmXap2nyIBRcK VvtZH7dkZqrA2PpqWB5WQ Qvp7b2Kq60O80nM9QbgEH +RXWhpDC0wFQ4 mE1iZvDgXbY5IDsrK852X rJsxNFoFktuz2xpq5gnxJ a5EaQ7HTJheuSlfBfaGGR 1h7PxJw23K95q IHdpZHRoPSIxNSUiIHZhb Djfjs4ldB5uNq7+PGNvbC G1aCC3fW4hQqXaQhX8BMi gP521OeVvgYDs Oslei7dqb7bvjDc5KdLbP HOgltPojPxtMQX4z8PtPp 11C5VabNjmn0YvJkh4vu1 6mLMrq4A5wFN0 W7QyNWSfanbcfVDjqJhnH U4rPUSyjifdOHCurP5cVE ApO7y2LdWtJnA6EAvoE5D srzT0GXUyjIEb RImhMNI8W23ix7X9UGBtT YHvZBY8hBP1iO0lxGeqox ogbGVmdDsgdmVydGljYWw yARioR742YWHo bVdfPPVfjA8iMEBbnYVyl KgoLY5jEWLqzhycTwGXPY VFEADUOO3VECVAFA06VP6 0cEOlu2G0bJR7 U5IoOOFfofixzsrgpSA5B ZSbAKMdeY95yHZbDRpaEf 1ld8Y7k590ISSaIGTkrK5 9Kj0umPkmLOPa fHPXaY0ideqwu5reoltcC gZiCJQyQIj3KEu6AJNrnZ zqMyBfIXC6BkH7MYQ6hWF gpV2jlAyqwmzg yO1dPll+DKPhPgGcUNd3W DwvdGQ+ESXcPSD5rNawXO stBYCntY4rTCIiU8y0UbU xMhB0FVamX7Ve HOZmcdleNx22gZ8iGvVhF cA2GTmtH4XzjjY5FIFrhI RdTPuxMQX4R25lc8Z6KZL pPHHqJHE3xMJ7 hS6ytWqmgaeycBBnlHxfc yBykTcuUMgkAIzpF683RN RvcDsnPjgxIFllYXJzPC9 9VB22bYFgq1P7 kNQ4V4FiIINaaqdxyibua OE7WDAmFFAzsO34rLDtQK jeFb8xx5H8d131OOCkEBW zvF45Qo2meTqm WDXepYCQiH9usbvxn6qsh nhrAmIwELQqJKy3FMp8ZM BnhTjnNpXpLCH8UaA8XYZ 8gTHqsZ1eoNik ywdhnD8bMqy+RmVtYWxlP E87ID89jHMkm1M6pBY4E1 UqSKDfxpzkhsvsoDM5YFZ hFBGpwZ57dIFe WLbwFe2jy0B4b779PPUvY YBbeA02Go5jpVvmBXNdcH QDdN6kasqtj4glznouFdS mRGWfYAf7BLs2 HENahQfoTcXbPHT1XmN0J WC3rXVlxT0zySfgsgyeoY 9wOyc+QVRjviUAKR9jQ4T yQJ33JB64FV91 F8HiYkxhiYNztUU+PHRhY mxlIHdpZHRoPScxMDAlJy KloQzzMV9zXf1nIWZnABS vbGxhcHNlOiBj m9fqWMTkRRjlFS2zyFxhO 5HepIK9FWBml3j7Fx70Z7 2kE1XmgMU+BHPyeOV1aSJ 6vB2mAjWbOyD6 YPnwT896JbYdwMRzKrnex 2vtu2oknNz8MlRxMKVqzj UtcLlhBXO2t2McYe31X78 sIHdpZHRoPSIy IYDmFXSkxIonsk3wlD1cV i8+RJCocSM4cLI8lU7fXr SvZjC9NOehN514QpYcvTR qFfmgI92eO8Db dXA+NXMyBdo2CIOcvVttK A2oiEStUFjmKg9kSFI3Fy UrBbAiCJzbY6XqNOJicwc vsuaveFA8QPLk GSIkxD17Vr9jzPajBi5iO PTkXLO8NUBbfPNqC7ZleG 0fPmMjRJLmOFZvT6TeyQS bOXtuT195RSgf BpK8PUVlabLaD5JtQYNkh IbcHgQ2o9E8Hh0VaVzemM LhWS8yOiOiUCl3Z0UdMgy 7MOSfzAblUA7v rNRiKMzpFt6uhWdgaNvaE N5lIUBgawbiu825TvYit2 baVDZskZIeHQacCRA1W84 vm3U7XXRiYVTm FTG2pDA2cK7quEdvbpgnh GVmdDsgdmVydGljYWwtYW adT836FOYssRmkQlMNHle 2A5RkCxg9TJJq tKtrDM5wfXShKKdvDs6sn HjwwHzwOD1rQJMcvsdsc8 05CmIzd5vbYXNbaSXvRKw mFZO2B69tq2G9 EDYdWRNgQYW5bHF4qW4db GlnbjogbGVmdDsgdmVydG fhJKxfTFwgZ577UIUzeZw aZp9IClk8N3Ia Lbz6VKYqjQerUL7dhPXrO FgxWg6shSpdgNkkXK8cUT Goihqfy489TwRro3reANO wcHQgVGltZXM7 T88xc0Q9NREpJEEyMUK1z ZA2rZ3fmGodkzmduMAmyJ fmvfCybIasGWktALkxR21 6IHRvcDsnPlBh eWVyOjwvdGQ+AX56px24W 0VfXyakFif4ZCMlOSB6zW G2yT6gZAWkIYkmm6A6kTT 5O1VbqiTopo9b b2xs (more content not included)... Normal [facility] Vital Signs Date Time Vital Sign Value Performing Clinician Facility 12-09-2023 10:31-0500 Body height 160.[address] [facility] 12-09-2023 10:31-0500 Body mass index (BMI) [Ratio] 27.3 kg/m2 [facility] 12-09-2023 10:31-0500 Body temperature 98.1 [degF] [facility] 12-09-2023 10:31-0500 Body weight 69.[address] [facility] 12-09-2023 10:31-0500 Diastolic blood pressure 78 mm[Hg] [facility] 12-09-2023 10:31-0500 Heart rate 68 /min [facility] 12-09-2023 10:31-0500 Respiratory rate 16 /min [facility] 12-09-2023 10:31-0500 SaO2% (BldA) [Mass fraction] 98 % [facility] 12-09-2023 10:31-0500 Systolic blood pressure 122 mm[Hg] [facility] 11-27-2023 11:07-0500 Body height 160 cm Christopher Bohach DPM Work Phone: [facility] 11-27-2023 11:07-0500 Body mass index (BMI) [Ratio] 28.34 kg/m2 Christopher Bohach DPM Work Phone: [facility] 11-27-2023 11:07-0500 Body weight 72.58 kg Christopher Bohach DPM Work Phone: [facility] 11-27-2023 11:07-0500 Diastolic blood pressure 77 mm[Hg] Christopher Bohach DPM Work Phone: [facility] 11-27-2023 11:07-0500 Heart rate 71 /min Christopher Bohach DPM Work Phone: [facility] 11-27-2023 11:07-0500 Respiratory rate 18 /min Christopher Bohach DPM Work Phone: [facility] 11-27-2023 11:07-0500 Systolic blood pressure 133 mm[Hg] Christopher Bohach DPM Work Phone: [facility] 09-18-2023 10:00-0500 Body height 160.[address] [facility] 09-18-2023 10:00-0500 Body weight 69.[address] [facility] 09-18-2023 10:00-0500 Diastolic blood pressure 80 mm[Hg] [facility] 09-18-2023 10:00-0500 Systolic blood pressure 130 mm[Hg] [facility] 06-18-2023 10:30-0400 Body height 160.02 cm Alex Ball Other [place] Other 06-18-2023 10:30-0400 Body mass index (BMI) [Ratio] 27.28 kg/m2 Alex Ball Other [place] Other 06-18-2023 10:30-0400 Body weight 69.85 kg Alex Ball Other [place] Other 06-18-2023 10:30-0400 Diastolic blood pressure 79 mm[Hg] Alex Ball Other [place] Other 06-18-2023 10:30-0400 Respiratory rate 12 /min Alex Ball Other [place] Other 06-18-2023 10:30-0400 Systolic blood pressure 133 mm[Hg] Alex Ball Other [place] Other 05-29-2023 10:20-0400 Body height 160.02 cm Mir Dolores Other [place] Other 05-29-2023 10:20-0400 Body mass index (BMI) [Ratio] 28.34 kg/m2 Mir Dolores Other [place] Other 05-29-2023 10:20-0400 Body temperature 96.1 [degF] Mir Dolores Other [place] Other 05-29-2023 10:20-0400 Body weight 72.58 kg Mir Dolores Other [place] Other 05-29-2023 10:20-0400 Diastolic blood pressure 71 mm[Hg] Mir Dolores Other [place] Other 05-29-2023 10:20-0400 Respiratory rate 16 /min Mir Dolores Other [place] Other 05-29-2023 10:20-0400 SaO2% (BldA) [Mass fraction] 98 % Mir Dolores Other [place] Other 05-29-2023 10:20-0400 Systolic blood pressure 119 mm[Hg] Mir Dolores Other [place] Other 05-01-2023 14:23-0400 Body height 152.4 cm Atif Yousif MD Work Phone: [facility] 05-01-2023 14:23-0400 Body temperature 97.11 [degF] Atif Yousif MD Work Phone: [facility] 05-01-2023 14:23-0400 Diastolic blood pressure 70 mm[Hg] Atif Yousif MD Work Phone: [facility] 05-01-2023 14:23-0400 Heart rate 84 /min Atif Yousif MD Work Phone: [facility] 05-01-2023 14:23-0400 Respiratory rate 16 /min Atif Yousif MD Work Phone: [facility] 05-01-2023 14:23-0400 SaO2% (BldA) [Mass fraction] 94 % Atif Yousif MD Work Phone: [facility] 05-01-2023 14:23-0400 Systolic blood pressure 143 mm[Hg] Atif Yousif MD Work Phone: [facility] 03-18-2023 10:30-0400 Body height 160.02 cm Alex Lloyd Other [place] Other 03-18-2023 10:30-0400 Body mass index (BMI) [Ratio] 27.54 kg/m2 Alex Ball Other [place] Other 03-18-2023 10:30-0400 Body weight 70.53 kg Alex Ball Other [place] [facility] 03-18-2023 10:30-0400 Diastolic blood pressure 86 mm[Hg] Alex Ball Other [place] [facility] 03-18-2023 10:30-0400 Respiratory rate 12 /min Alex Ball Other [place] [facility] 03-18-2023 10:30-0400 Systolic blood pressure 142 mm[Hg] Alex Ball Other [place] [facility] 02-17-2023 14:00-0400 Body height 160.02 cm Alex Ball Other [place] [facility] 02-17-2023 14:00-0400 Body mass index (BMI) [Ratio] 27.54 kg/m2 Alex Ball Other [place] [facility] 02-17-2023 14:00-0400 Body weight 70.53 kg Alex Ball Other [place] [facility] 02-06-2023 09:29-0400 Body height 152.4 cm Atif Yousif MD Work Phone: [facility] 02-06-2023 09:29-0400 Body temperature 97.59 [degF] Atif Yousif MD Work Phone: [facility] 02-06-2023 09:29-0400 Diastolic blood pressure 90 mm[Hg] Atif Yousif MD Work Phone: [facility] 02-06-2023 09:29-0400 Heart rate 77 /min Atif Yousif MD Work Phone: [facility] 02-06-2023 09:29-0400 Respiratory rate 16 /min Atif Yousif MD Work Phone: [facility] 02-06-2023 09:29-0400 SaO2% (BldA) [Mass fraction] 99 % Atif Yousif MD Work Phone: [facility] 02-06-2023 09:29-0400 Systolic blood pressure 129 mm[Hg] Atif Yousif MD Work Phone: [facility] 12-26-2022 14:06-0500 Diastolic blood pressure 86 mm[Hg] Mikey Zumbar [facility] 12-26-2022 14:06-0500 Heart rate 73 /min Mikey Zumbar [facility] 12-26-2022 14:06-0500 Mean blood pressure 104 mm[Hg] Mikey Zumbar [facility] 12-26-2022 14:06-0500 Respiratory rate 16 /min Mikey Zumbar [facility] 12-26-2022 14:06-0500 Systolic blood pressure 139 mm[Hg] Mikey Zumbar [facility] 12-25-2022 09:42-0500 Diastolic blood pressure 84 mm[Hg] [facility] [place] Work Phone: [facility] 12-25-2022 09:42-0500 Heart rate 69 /min [facility] [place] Work Phone: [facility] 12-25-2022 09:42-0500 Respiratory rate 18 /min [facility] [place] Work Phone: [facility] 12-25-2022 09:42-0500 SaO2% (BldA) [Mass fraction] 97 % [facility] [place] Work Phone: [facility] 12-25-2022 09:42-0500 Systolic blood pressure 146 mm[Hg] [facility] [place] Work Phone: [facility] 12-16-2022 10:00-0500 Body height 160.02 cm Alex Ball Other [place] [facility] 12-16-2022 10:00-0500 Body mass index (BMI) [Ratio] 28.34 kg/m2 Alex Ball Other [place] [facility] 12-16-2022 10:00-0500 Body weight 72.58 kg Alex Ball Other [place] [facility] 12-16-2022 10:00-0500 Diastolic blood pressure 72 mm[Hg] Alex Ball Other [place] [facility] 12-16-2022 10:00-0500 Respiratory rate 12 /min Alex Ball Other [place] [facility] 12-16-2022 10:00-0500 Systolic blood pressure 118 mm[Hg] Alex Ball Other [place] [facility] 11-27-2022 10:20-0500 Body height 160.02 cm Mir Dolores Other [place] Other 11-27-2022 10:20-0500 Body mass index (BMI) [Ratio] 28.34 kg/m2 Mir Dolores Other [place] [facility] 11-27-2022 10:20-0500 Body temperature 96.4 [degF] Mir Dolores Other [place] [facility] 11-27-2022 10:20-0500 Body weight 72.58 kg Mir Dolores Other [place] [facility] 11-27-2022 10:20-0500 Diastolic blood pressure 78 mm[Hg] Mir Dolores Other [place] [facility] 11-27-2022 10:20-0500 Respiratory rate 18 /min Mir Dolores Other [place] [facility] 11-27-2022 10:20-0500 SaO2% (BldA) [Mass fraction] 97 % Mir Dolores Other [place] [facility] 11-27-2022 10:20-0500 Systolic blood pressure 123 mm[Hg] Mir Dolores Other [place] [facility] 11-11-2022 14:26-0500 Body height 152.4 cm Atif Yousif MD Work Phone: [facility] 11-11-2022 14:26-0500 Body temperature 97.39 [degF] Atif Yousif MD Work Phone: [facility] 11-11-2022 14:26-0500 Body weight 69.85 kg Atif Yousif MD Work Phone: [facility] 11-11-2022 14:26-0500 Diastolic blood pressure 77 mm[Hg] Atif Yousif MD Work Phone: [facility] 11-11-2022 14:26-0500 Heart rate 84 /min Atif Yousif MD Work Phone: [facility] 11-11-2022 14:26-0500 Respiratory rate 16 /min Atif Yousif MD Work Phone: [facility] 11-11-2022 14:26-0500 SaO2% (BldA) [Mass fraction] 94 % Atif Yousif MD Work Phone: [facility] 11-11-2022 14:26-0500 Systolic blood pressure 124 mm[Hg] Atif Yousif MD Work Phone: [facility] 10-10-2022 10:31-0500 Diastolic blood pressure 91 mm[Hg] Mikey Zumbar [facility] 10-10-2022 10:31-0500 Heart rate 77 /min Mikey Zumbar [facility] 10-10-2022 10:31-0500 Mean blood pressure 109 mm[Hg] Mikey Zumbar [facility] 10-10-2022 10:31-0500 Respiratory rate 12 /min Mikey Zumbar [facility] 10-10-2022 10:31-0500 Systolic blood pressure 144 mm[Hg] Mikey Zumbar [facility] 09-16-2022 14:50-0500 Body height 152.4 cm Maranda Hope APRN.[employer] SUPERVISOR Work Phone: [facility] 09-16-2022 14:50-0500 Body temperature 97.39 [degF] Maranda Hope APRN.MARKING [employer]OM SUPERVISOR Work Phone: [facility] 09-16-2022 14:50-0500 Body weight 72.58 kg Maranda Hope APRN.MARKING [employer] SUPERVISOR Work Phone: [facility] 09-16-2022 14:50-0500 Diastolic blood pressure 69 mm[Hg] Maranda Hope APRN.MARKING ROOM SUPERVISOR Work Phone: [facility] 09-16-2022 14:50-0500 Heart rate 67 /min Maranda Hope APRN.MARKING [employer]OM SUPERVISOR Work Phone: [facility] 09-16-2022 14:50-0500 Respiratory rate 16 /min Maranda Hope APRN.MARKING [employer]OM SUPERVISOR Work Phone: [facility] 09-16-2022 14:50-0500 SaO2% (BldA) [Mass fraction] 98 % Maranda Hope APRN.MARKING [employer]OM SUPERVISOR Work Phone: [facility] 09-16-2022 14:50-0500 Systolic blood pressure 137 mm[Hg] Maranda Hope APRN.MARKING ROOM SUPERVISOR Work Phone: [facility] 07-08-2022 10:03-0400 Body height 152.4 cm Atif Yousif MD Work Phone: [facility] 07-08-2022 10:03-0400 Body temperature 97.2 [degF] Atif Yousif MD Work Phone: [facility] 07-08-2022 10:03-0400 Diastolic blood pressure 86 mm[Hg] Atif Yousif MD Work Phone: [facility] 07-08-2022 10:03-0400 Heart rate 73 /min Atif Yousif MD Work Phone: [facility] 07-08-2022 10:03-0400 Respiratory rate 16 /min Atif Yousif MD Work Phone: [facility] 07-08-2022 10:03-0400 SaO2% (BldA) [Mass fraction] 97 % Atif Yousif MD Work Phone: [facility] 07-08-2022 10:03-0400 Systolic blood pressure 145 mm[Hg] Atif Yousif MD Work Phone: [facility] 06-20-2022 14:07-0400 Diastolic blood pressure 81 mm[Hg] Mikey Zumbar [facility] 06-20-2022 14:07-0400 Heart rate 74 /min Mikey Zumbar [facility] 06-20-2022 14:07-0400 Mean blood pressure 104 mm[Hg] Mikey Zumbar [facility] 06-20-2022 14:07-0400 Respiratory rate 18 /min Mikey Zumbar [facility] 06-20-2022 14:07-0400 Systolic blood pressure 150 mm[Hg] Mikey Zumbar [facility] 05-21-2022 11:00-0400 Body height 160.02 cm Mir Dolores Other [place] Other 05-21-2022 11:00-0400 Body mass index (BMI) [Ratio] 28.34 kg/m2 Mir Dolores Other [place] Other 05-21-2022 11:00-0400 Body temperature 96.1 [degF] Mir Dolores Other [place] Other 05-21-2022 11:00-0400 Body weight 72.58 kg Mir Dolores Other [place] Other 05-21-2022 11:00-0400 Diastolic blood pressure 77 mm[Hg] Mir Dolores Other [place] [facility] 05-21-2022 11:00-0400 Respiratory rate 18 /min Mir Dolores Other [place] [facility] 05-21-2022 11:00-0400 SaO2% (BldA) [Mass fraction] 97 % Mir Dolores Other [place] Other 05-21-2022 11:00-0400 Systolic blood pressure 128 mm[Hg] Mir Dolores Other [place] Other 05-02-2022 13:51-0400 Diastolic blood pressure 87 mm[Hg] Mikey Zumbar [facility] 05-02-2022 13:51-0400 Heart rate 71 /min Mikey Hollowayumbar [facility] 05-02-2022 13:51-0400 Mean blood pressure 107 mm[Hg] Mikey Zumbar [facility] 05-02-2022 13:51-0400 Respiratory rate 16 /min Mikey Hollowayumbar [facility] 05-02-2022 13:51-0400 Systolic blood pressure 146 mm[Hg] Mikey Hollowayumbar [facility] 04-15-2022 15:19-0400 Body height 152.4 cm Atif Yousif MD Work Phone: [facility] 04-15-2022 15:19-0400 Body temperature 97.81 [degF] Atif Yousif MD Work Phone: [facility] 04-15-2022 15:19-0400 Body weight 72.12 kg Atif Yousif MD Work Phone: [facility] 04-15-2022 15:19-0400 Diastolic blood pressure 75 mm[Hg] Atif Yousif MD Work Phone: [facility] 04-15-2022 15:19-0400 Heart rate 83 /min Atif Yousif MD Work Phone: [facility] 04-15-2022 15:19-0400 Respiratory rate 16 /min Atif Yousif MD Work Phone: [facility] 04-15-2022 15:19-0400 SaO2% (BldA) [Mass fraction] 93 % Atif Yousif MD Work Phone: [facility] 04-15-2022 15:19-0400 Systolic blood pressure 150 mm[Hg] Atif Yousif MD Work Phone: [facility] 02-28-2022 14:40-0400 Diastolic blood pressure 66 mm[Hg] [facility] [place] Work Phone: [facility] 02-28-2022 14:40-0400 Heart rate 72 /min [facility] [place] Work Phone: [facility] 02-28-2022 14:40-0400 Respiratory rate 18 /min [facility] Work Phone: [facility] 02-28-2022 14:40-0400 Systolic blood pressure 131 mm[Hg] [facility] [place] Work Phone: [facility] 2022 15:36-0400 Body height 152.4 cm Atif Yousif MD Work Phone: [facility] 2022 15:36-0400 Body temperature 98.4 [degF] Atif Yousif MD Work Phone: [facility] 2022 15:36-0400 Diastolic blood pressure 90 mm[Hg] Atif Yousif MD Work Phone: [facility] 2022 15:36-0400 Heart rate 81 /min Atif Yousif MD Work Phone: [facility] 2022 15:36-0400 Respiratory rate 16 /min Atif Yousif MD Work Phone: [facility] 2022 15:36-0400 SaO2% (BldA) [Mass fraction] 96 % Atif Yousif MD Work Phone: [facility] 2022 15:36-0400 Systolic blood pressure 152 mm[Hg] Atif Yousif MD Work Phone: [facility] 01-15-2022 11:00-0400 Body height 160.02 cm Mir Lennonr Other [place] Other 01-15-2022 11:00-0400 Body mass index (BMI) [Ratio] 28.34 kg/m2 Mir Dolores Other [place] Other 01-15-2022 11:00-0400 Body temperature 96.7 [degF] Mir Dolores Other [place] Other 01-15-2022 11:00-0400 Body weight 72.58 kg Mir Dolores Other [place] Other 01-15-2022 11:00-0400 Diastolic blood pressure 80 mm[Hg] Mir Dolores Other [place] Other 01-15-2022 11:00-0400 Respiratory rate 18 /min Mir Dolores Other [place] Other 01-15-2022 11:00-0400 SaO2% (BldA) [Mass fraction] 96 % Mir Dolores Other [place] Other 01-15-2022 11:00-0400 Systolic blood pressure 122 mm[Hg] Mir Dolores Other [place] Other 10-16-2021 10:20-0500 Body height 160.02 cm Mir Dolores Other [place] Other 10-16-2021 10:20-0500 Body mass index (BMI) [Ratio] 29.76 kg/m2 Mir Dolores Other [place] Other 10-16-2021 10:20-0500 Body temperature 97.2 [degF] Mir Dolores Other [place] Other 10-16-2021 10:20-0500 Body weight 76.2 kg Mir Dolores Other [place] Other 10-16-2021 10:20-0500 Diastolic blood pressure 74 mm[Hg] Mir Dolores Other [place] Other 10-16-2021 10:20-0500 Respiratory rate 18 /min Mir Dolores Other [place] Other 10-16-2021 10:20-0500 SaO2% (BldA) [Mass fraction] 96 % Mir Dolores Other [place] Other 10-16-2021 10:20-0500 Systolic blood pressure 120 mm[Hg] Mir Dolores Other [place] Other Encounters Encounter Date Encounter Type Care Provider Facility Start: 12-09-2023 End: 12-09-2023 ambulatory [facility] Work Phone: Start: 12-09-2023 End: 12-09-2023 Patient encounter procedure [facility] Nephrology Work Phone: Start: 12-01-2023 Non-patient / Non-visit [facility] Work Phone: Start: 11-27-2023 Bamboo flowsheet Chantal Carnes DPM Work Phone: [facility] Start: 11-27-2023 Bamboo flowsheet Chantal Carnes DPM Work Phone: [facility] Start: 11-27-2023 End: 11-27-2023 ambulatory CHANTAL CARNES Not Available Start: 11-27-2023 End: 11-27-2023 Patient encounter procedure Chantal Carnes DPM Work Phone: [facility] Comment on above: Idiopathic progressi ve polyneuropathy (Primary Dx); Onychomycosis; Corns and callosities Start: 11-06-2023 End: 11-06-2023 ambulatory Alex Lloyd Other [place] Other Start: 11-06-2023 Telephone encounter Alex [place] [facility] Start: 09-18-2023 End: 09-18-2023 Patient encounter procedure [facility] Work Phone: Start: 08-22-2023 End: 08-22-2023 ambulatory Alex Lloyd Other [place] Other Start: 08-22-2023 Telephone encounter Alex [place] [facility] Start: 08-21-2023 End: 08-21-2023 ambulatory ATIF YOUSIF Facility:[facility] Start: 08-15-2023 End: 08-15-2023 ambulatory Alex Lloyd Other [place] Other Start: 08-15-2023 Nursing evaluation o f patient and report Alex Lloyd [facility] Start: 08-05-2023 End: 08-05-2023 ambulatory Alex Lloyd Other [place] Other Start: 08-05-2023 Telephone encounter Alex [place] [facility] Start: 06-26-2023 End: 06-26-2023 ambulatory ATIF YOUSIF Facility:[facility] Start: 06-26-2023 End: 06-26-2023 ambulatory [facility] Work Phone: Hematology/Oncology Comment on above: Anemia of chronic re nal failure, stage 3b (HCC) (Primary Dx) Start: 06-20-2023 Telephone encounter Delia Brady RN H ematology/Oncology Comment on above: Orders Start: 06-18-2023 End: 06-18-2023 ambulatory Alex Lloyd Other [place] Other Start: 06-18-2023 Office outpatient vi sit 25 minutes Alex Lloyd [facility] Start: 06-12-2023 End: 06-12-2023 ambulatory Mir Dolores Other [place] Other Start: 06-12-2023 Telephone encounter Mir Dolores [facility] Start: 06-09-2023 End: 06-09-2023 ambulatory Alex Lloyd Other [place] Other Start: 06-09-2023 Telephone encounter Alex Lloyd [facility] Start: 05-29-2023 End: 05-29-2023 ambulatory Mir Dolores Other [place] Other Start: 05-29-2023 Office outpatient vi sit 25 minutes Mir Dolores [facility] Start: 05-15-2023 End: 05-15-2023 ambulatory Alex Lloyd Other [place] Other Start: 05-15-2023 Telephone encounter Alex [place] [facility] Start: 05-02-2023 End: 05-02-2023 ambulatory Alex Lloyd Other [place] Other Start: 05-02-2023 Telephone encounter Alex [place] [facility] Start: 05-01-2023 End: 05-01-2023 ambulatory ATIF YOUSIF Facility:[facility] Start: 05-01-2023 End: 05-01-2023 ambulatory Atif Yousif [...] 03-18-2023 End: 03-18-2023 ambulatory Alex Lloyd Other [place] Other Start: 03-18-2023 Office outpatient vi sit 25 minutes Alex Lloyd [facility] Start: 03-04-2023 End: 03-05-[address] ALEX LLOYD Facility:[facility] Start: 02-24-2023 End: 02-24-2023 ambulatory Alex Lloyd Other [place] Other Start: 02-24-2023 Telephone encounter Alex Lloyd [facility] Start: 02-17-2023 End: 02-17-2023 ambulatory Alex Lloyd Other [place] Other Start: 02-17-2023 Office outpatient vi sit 15 minutes Alex Lloyd [facility] Start: 02-17-2023 Telephone encounter Alex Lloyd [facility] Start: 02-13-2023 End: 02-13-2023 ambulatory Alex Lloyd Other [place] Other Start: 02-13-2023 Telephone encounter Alex Lloyd [facility] Start: 02-12-2023 End: 02-13-[address] ALEX LLODY Facility:[facility] Start: 02-06-2023 End: 02-06-2023 ambulatory [facility] [...] 01-31-2023 End: 01-31-2023 ambulatory Alex Lloyd Other [place] Other Start: 01-31-2023 Telephone encounter Alex Lloyd [facility] Start: 01-27-2023 End: 01-27-2023 ambulatory Mir Dolores Other [place] Other Start: 01-27-2023 Telephone encounter Mir Dolores [facility] Start: 12-26-2022 End: 12-27-2022 ambulatory MD Mikey Holden Facility:[place] Start: 12-26-2022 End: 12-26-2022 Pain Management Mikey Holden [facility] Start: 12-25-2022 End: 12-25-2022 ambulatory ATIF YOUSIF Facility:[facility] Start: 12-25-2022 End: 12-25-2022 ambulatory [facility] Work Phone: Hematology/Oncology Comment on above: Anemia of chronic re nal failure, stage 3b (HCC) (Primary Dx) Start: 12-16-2022 End: 12-16-2022 ambulatory Alex Lloyd Other [place] Other Start: 12-16-2022 Office outpatient vi sit 25 minutes Alex Lloyd [facility] Start: 12-11-2022 End: 12-11-[address] ALEX LLOYD Facility:[facility] Start: 11-27-2022 End: 11-27-2022 ambulatory Mir Dolores Other [place] Other Start: 11-27-2022 Office outpatient vi sit 25 minutes Mir Dolores [facility] Start: 11-18-2022 End: 11-19-[address] ALEX LLOYD Facility:[facility] Start: 11-11-2022 End: 11-11-2022 ambulatory ATIF YOUSIF Facility:[facility] Start: 11-11-2022 End: 11-11-2022 ambulatory Atif Yousif MD Work Phone: Hematology/Oncology Comment on above: Anemia of chronic re nal failure, stage 3b (HCC) (Primary Dx); Chronic renal impairment, stage 3b (HCC); History of iron deficiency Start: 11-11-2022 End: 11-11-2022 Patient encounter procedure Atif Yousif MD Work Phone: [facility] Start: 10-10-2022 End: 10-11-2022 ambulatory MD Mikey Holden Facility:[place] Start: 10-10-2022 End: 10-10-2022 Pain Management Mikey Holden [facility] Start: 09-16-2022 End: 09-16-2022 ambulatory ALEX LLOYD Facility:[facility] Start: 09-16-2022 End: 09-16-2022 ambulatory [facility] [...] Phone: [facility] Start: 08-16-2022 Adult health examination Normancarlos Lloyd Other [place] Other Start: 07-08-2022 End: 07-08-2022 ambulatory Atif Yousif MD Work Phone: Hematology/Oncology Comment on above: Anemia of chronic re nal failure, stage 3b (HCC) (Primary Dx); Chronic renal impairment, stage 3b (HCC); Iron deficiency anemia due to chronic blood loss Start: 07-08-2022 End: 07-08-2022 Patient encounter procedure Atif Yousif MD Work Phone: [facility] Start: 06-20-2022 End: 06-21-2022 ambulatory Mikey Holden Facility:[place] Start: 06-20-2022 End: 06-20-2022 Pain Management Mikey Mannandres [facility] Start: 06-04-2022 End: 06-04-[address] ALEX LLOYD Facility:[facility] Start: 05-21-2022 End: 05-21-2022 ambulatory Mir Dolores Other [facility] Other Start: 05-21-2022 Office outpatient vi sit 15 minutes Mir Dolores [facility] Start: 05-15-2022 End: 05-16-[address] ALEX LLOYD Facility:[facility] Start: 05-15-2022 End: 05-16-[address] ALEX LLOYD Facility:[facility] Start: 05-03-[address] ALEX LLOYD Facili ty:[facility] Start: 05-02-2022 End: 05-03-2022 ambulatory Mikey Hollowaydewayne Facility:[place] Start: 05-02-2022 End: 05-02-2022 Pain Management Mikey Holden [facility] Start: 04-15-2022 End: 04-15-2022 ambulatory [facility] Work Phone: Hematology/Oncology Comment on above: Anemia of chronic re nal failure, stage 3b (HCC) (Primary Dx) Anemia of chronic re nal failure, stage 3b (HCC) (Primary Dx); Chronic renal impairment, stage 3b (HCC); Iron deficiency anemia due to chronic blood loss; Primary osteoarthritis involving multiple joints; Essential hypertension Start: 04-15-2022 End: 04-15-2022 Patient encounter procedure Atif Yousif MD Work Phone: [facility] Start: 04-10-2022 Telephone encounter Atif yee MD Work Phone: Hematology/Oncology Comment on above: Lab Orders Start: 02-28-2022 End: 02-28-2022 ambulatory [facility] Work Phone: Hematology/Oncology Comment on above: Anemia of chronic re nal failure, stage 3b (HCC) (Primary Dx) Start: 02-21-2022 End: 02-22-2022 ambulatory Mikey Zumbar Facility:[place] Start: 2022 End: 2022 ambulatory Atif Yousif MD Work Phone: Hematology/Oncology Comment on above: Anemia of chronic re nal failure, stage 3b (HCC) (Primary Dx); Chronic renal impairment, stage 3b (HCC); Iron deficiency anemia due to chronic blood loss; Primary osteoarthritis involving multiple joints; Essential hypertension Start: 2022 End: 2022 Patient encounter procedure Atif Yousif MD Work Phone: [place] Start: 01-15-2022 End: 01-15-2022 ambulatory Mir Dolores Other [place] Other Start: 01-15-2022 Office outpatient vi sit 25 minutes Mir Dolores [facility] Start: 01-15-2022 Telephone encounter Mir Dolores [facility] Start: 12-20-2021 End: 12-20-2021 ambulatory Mir Dolores Other [place] Other Start: 12-20-2021 Telephone encounter Mir Dolores [facility] Start: 10-16-2021 End: 10-16-2021 ambulatory Mir Dolores Other [place] Other Start: 10-16-2021 Office outpatient vi sit 25 minutes Mir Dolores [facility] Procedures Date Procedure Procedure Detail Performing Clinician Start: 09-23-2018 transforaminal epidu ral steroid injection 1 Mikey Holden Comment on above: right L2,3,4 TFESI- 50% relief x 2 days back pain, 100% relief of right leg pain to present Start: 09-03-2017 Right Transformanial epidural steroid injection 2 Mikey Holden Comment on above: right L3, L4 L5 0% r elief Start: 12-25-2016 Right transforaminal epidural steroid injection L3-L4-L5 3 Mikey Zumbar Comment on above: 100% relief from leg pain but still haslow back pain when standing Start: 05-22-2016 Entire piriformis mu scle (body structure) Mikey Zumbar Comment on above: right 100% RELIEF Start: 03-13-2016 Selective Nerve Root Block 5 Mikey Zumbar Comment on above: Right SNRB L3,L4,L5 60 % relief afer 10 days Start: 09-06-2015 Rt. Transforaminal E pidural Steroid Injection 6 Mikey Zumbar Comment on above: L3, L4, L5--60% reli ef Start: 03-15-2015 Right Transforaminal Epidural Steroid Injection 7 Mikey Zumbar Comment on above: L3-L4-L5 Start: 09-09-2014 TRANSFORAMINAL EPIDU RAL STEROID 8 [email or web address] Comment on above: RIGHT L3+4+5 TFESI Start: 05-25-2014 Epidural injection o f lumbar spine using fluoroscopic guidance [employer] Comment on above: L5-S1 RASHAUN Start: 03-02-2014 Injection of sacroil iac joint using fluoroscopic guidance [employer] Comment on above: BILAT SIJI Start: 09-08-2013 Epidural injection o f lumbar spine using fluoroscopic guidance [employer] Comment on above: L5-S1 RASHAUN Start: 09-07-2013 General examination of patient Alex Lloyd Other Start: 06-02-2013 Epidural injection o f lumbar spine using fluoroscopic guidance [employer] Comment on above: L5-S1 RASHAUN Start: 04-10-2013 Injection of steroid into shoulder joint Mikey Holden Comment on above: BILAT Start: 12-23-2012 Local anesthetic sac ral epidural block Mikey Holden Comment on above: W/ CATH Start: 10-28-2012 TRANSFORAMINAL EPIDU RAL STERIOD IN JECTION 15 Mikey Holden Comment on above: RIGHT L3+4+5 TFESI Start: 09-16-2012 TRANSFORAMINAL EPIDU RAL STERIOD INJECTION 16 Mikey Holden Comment on above: RIGHT L3+4+5 TFESI BACK SURGERY 17 Mikey campos Comment on above: 2004 Depression screening Joaquim Lloyd Other Hysterectomy Mikey Holden Total knee replacement Ralph Holden Comment on above: LEFT 11/2010 Plan of Treatment Date Care Activity Detail Author Start: 06-26-2026 DIABETES SCREEN DIABETES SCREEN [facility] Start: 05-01-2026 DIABETES SCREEN [facility] Start: 02-06-2026 DIABETES SCREEN [facility] Start: 11-11-2025 DIABETES SCREEN [facility] Start: 09-16-2025 DIABETES SCREEN [facility] Start: 07-08-2025 DIABETES SCREEN [facility]CRE[facility] Start: 04-15-2025 DIABETES SCREEN [facility] Start: 2025 DIABETES SCREEN DIABETES SCREEN [facility] Start: 02-05-2024 End: 02-05-2024 Patient encounter procedure 02/05/2024 10:30 AM EDT Procedure Visit [facility] [address] [place] [id number] Chantal Carnes DPM [address] [place] [address] [facility] Start: 06-20-2023 Influenza vaccination [facility] Start: 05-01-2023 End: 07-01-2023 Ferritin [Mass/volume] in Serum or Plasma [facility] Work Phone: Comment on above: Expected: 05/01/2023 , Expires: 07/01/2023 Start: 05-01-2023 End: 07-01-2023 Iron and Iron binding capacity panel - Serum or Plasma [facility] Work Phone: Comment on above: Expected: 05/01/2023 , Expires: 07/01/2023 Start: 12-17-2022 COVID-19 VACCINE (6 - Moderna series) COVID-19 VACCINE (6 - Moderna series) [facility] Start: 11-11-2022 End: 01-11-2023 CBC W Auto Differential panel - Blood CBC + DIFF Lab Routine Anemia of chronic renal failure, stage 3b (HCC) 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 Essential hypertension Expected: 11/11/2022, Expires: 01/11/2023 [facility] Work Phone: Comment on above: Expected: 11/11/2022 , Expires: 01/11/2023 Start: 11-11-2022 End: 01-11-2023 Comprehensive metabolic 2000 panel - Serum or Plasma COMP METABOLIC PANEL Lab Routine Anemia of chronic renal failure, stage 3b (HCC) 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 Essential hypertension Expected: 11/11/2022, Expires: 01/11/2023 [facility] Work Phone: Comment on above: Expected: 11/11/2022 , Expires: 01/11/2023 Start: 10-20-2022 ADVANCE DIRECTIVE DISCUSSION ADVANCE DIRECTIVE DISCUSSION [facility] Start: 10-20-2022 DEPRESSION ASSESSMENT DEPRESSION ASS ESSMENT [facility] Start: 06-20-2022 Influenza vaccination INFLUENZA (#1) [facility] Start: 04-11-2022 End: 06-11-2022 CBC W Auto Differential panel - Blood CBC + DIFF Lab Routine Iron deficiency Expected: 04/11/2022, Expires: 06/11/2022 [facility] Work Phone: Comment on above: Expected: 04/11/2022 , Expires: 06/11/2022 Start: 04-11-2022 End: 06-11-2022 Comprehensive metabolic 2000 panel - Serum or Plasma COMP METABOLIC PANEL Lab Routine Iron deficiency Expected: 04/11/2022, Expires: 06/11/2022 [facility] Work Phone: Comment on above: Expected: 04/11/2022 , Expires: 06/11/2022 Start: 04-11-2022 End: 06-11-2022 Ferritin [Mass/volume] in Serum or Plasma FERRITIN BLD Lab Routine Iron deficiency Expected: 04/11/2022, Expires: 06/11/2022 [facility] Work Phone: Comment on above: Expected: 04/11/2022 , Expires: 06/11/2022 Start: 04-11-2022 End: 06-11-2022 Iron and Iron binding capacity panel - Serum or Plasma IRON + TIBC Lab Routine Iron deficiency Expected: 04/11/2022, Expires: 06/11/2022 [facility] Work Phone: Comment on above: Expected: 04/11/2022 , Expires: 06/11/2022 Start: 02-28-2022 End: 04-30-2022 CBC W Auto Differential panel - Blood CBC + DIFF Lab Routine Anemia of chronic renal failure, stage 3b (HCC) Expected: 02/28/2022, Expires: 04/30/2022 [facility] Work Phone: Comment on above: Expected: 02/28/2022 , Expires: 04/30/2022 Start: 01-02-2022 COVID-19 VACCINE (4 - Booster for Moderna series) COVID-19 VACCINE (4 - Booster for Moderna series) [facility] Start: 10-20-2021 ADVANCE DIRECTIVE DISCUSSION ADVANCE DIRECTIVE DISCUSSION [facility] Start: 10-20-2021 DEPRESSION ASSESSMENT DEPRESSION ASS ESSMENT [facility] Start: 08-03-2017 Pneumococcal Vaccine : 65+ Years (2 - PCV) Pneumococcal Vaccine: 65+ Years (2 - PCV) [facility] Start: 02-06-2005 BONE DENSITY BONE DENSITY [facility] Start: 2000 HEPATITIS B (1 of 3 - Risk 3-dose series) HEPATITIS B (1 of 3 - Risk 3-dose series) [facility] Start: 02-06-1990 SHINGRIX VACCINE (1 of 2) SHINGRIX VACCINE (1 of 2) [facility] Start: 02-06-1959 HEPATITIS A (1 of 2 - Risk 2-dose series) HEPATITIS A (1 of 2 - Risk 2-dose series) [facility] Start: 02-06-1959 HEPATITIS B (1 of 3 - Risk 3-dose series) HEPATITIS B (1 of 3 - Risk 3-dose series) [facility] Start: 02-06-1959 SHINGRIX VACCINE (1 of 2) SHINGRIX VACCINE (1 of 2) [facility] Start: 02-06-1959 Urine microalbumin profile DTAP,TDAP,TD (1 - Tdap) [facility] Start: 02-06-1958 MMR (1 of 2 - Risk 2-dose series) MMR (1 of 2 - Risk 2-dose series) [facility] Start: 02-06-1950 MENINGOCOCCAL B: Consider based on risk (1 of 4 - Increased Risk Bexsero 2-dose series) MENINGOCOCCAL B: Consider based on risk (1 of 4 - Increased Risk Bexsero 2-dose series) [facility] Start: 02-06-1950 MENINGOCOCCAL B: Consider based on risk (1 of 4 - Increased Risk) MENINGOCOCCAL B: Consider based on risk (1 of 4 - Increased Risk) [facility] Start: 02-06-1941 HEPATITIS A (1 of 2 - Risk 2-dose series) HEPATITIS A (1 of 2 - Risk 2-dose series) [facility] Renal function 1999 panel - Serum or Plasma [facility] Immunizations Immunization Date Immunization Notes Care Provider Michell houston 08-15-2023 influenza, high dose seasonal, preservative-free Alex Lloyd Other [place] Other 08-15-2023 influenza virus vaccine, unspecified formulation [facility] 08-09-2022 influenza (aIIV4) vaccine, age 65+ yr, quadrivalent, PF (FLUAD QUADRIVALENT) [facility] Work Phone: [facility] 08-09-2022 influenza virus vaccine, split virus (incl. purified surface antigen) Alex Lloyd Other [place] Other 08-09-2022 influenza virus vaccine, unspecified formulation [facility] 03-08-2022 SARS-CoV-2 (COVID-19 ) mRNA-1273 vaccine Mikey Zumbar [facility] Comment on above: Result Comment: 2021: [id number] 09-04-2021 SARS-CoV-2 (COVID-19 ) mRNA-1273 vaccine Mikey Zumbar [facility] Comment on above: Result Comment: 2021: [id number] 08-16-2021 influenza nasal, unspecified formulation [facility] Work Phone: [facility] 08-16-2021 influenza virus vaccine, unspecified formulation Mikey Zumbar [facility] 08-16-2021 influenza, high dose seasonal, preservative-free Atif Yousif MD Work Phone: [facility] 08-14-2021 influenza virus vaccine, split virus (incl. purified surface antigen) Alex Lloyd Other [place] Other 08-14-2021 influenza virus vaccine, unspecified formulation [facility] 12-19-2020 COVID-19 vaccine, fu ll dose (MODERNA) Atif Yousif MD Work Phone: [facility] 11-21-2020 COVID-19 vaccine, fu ll dose (MODERNA) Atif Yousif MD Work Phone: [facility] 08-03-2020 influenza, injectabl e, quadrivalent, preservative free Atif Yousif MD Work Phone: [facility] 07-26-2020 influenza virus vaccine, split virus (incl. purified surface antigen) Alex Lloyd Other [facility] Other 07-26-2020 influenza virus vaccine, unspecified formulation [facility] 08-11-2019 influenza, injectabl e, quadrivalent, preservative free Atif Yousif MD Work Phone: [facility] 08-03-2019 influenza virus vaccine, split virus (incl. purified surface antigen) Alex Lloyd Other [facility] Other 08-03-2019 influenza virus vaccine, unspecified formulation [facility] 08-18-2018 influenza nasal, unspecified formulation [facility] Work Phone: [facility] 08-18-2018 influenza virus vaccine, unspecified formulation Mikey Hollowaydewayne [facility] 08-18-2018 influenza, injectabl e, quadrivalent, preservative free Atif Yousif MD Work Phone: [facility] 08-04-2018 influenza virus vaccine, split virus (incl. purified surface antigen) Alex Lloyd Other [facility] Other 08-04-2018 influenza virus vaccine, unspecified formulation [facility] 08-04-2018 Seasonal trivalent influenza vaccine, adjuvanted, preservative free Atif Yousif MD Work Phone: [facility] 08-20-2017 influenza, injectabl e, quadrivalent, preservative free Atif Yousif MD Work Phone: [facility] 08-13-2017 influenza virus vaccine, split virus (incl. purified surface antigen) Alex Lloyd Other [place] Other 08-13-2017 influenza virus vaccine, unspecified formulation [facility] 08-13-2017 influenza, high dose seasonal, preservative-free Atif Yousif MD Work Phone: [facility] 08-09-2016 pneumococcal conjuga te vaccine, 13 valent Atif Yousif MD Work Phone: [facility] 08-09-2016 pneumococcal Conjuga te, unspecified formulation; Translations: [Need for prophylactic vaccination against Streptococcus pneumoniae (pneumococcus)] Alex Lloyd Other [facility] Other 08-03-2016 pneumococcal polysaccharide vaccine, 23 valent Atif Yousif MD Work Phone: [facility] 08-02-2016 influenza virus vaccine, split virus (incl. purified surface antigen) Alex Lloyd Other [facility] Other 08-02-2016 influenza virus vaccine, unspecified formulation [facility] 08-02-2016 influenza, high dose seasonal, preservative-free Atif Yousif MD Work Phone: [facility] 07-20-2016 influenza, injectabl e, quadrivalent, preservative free Atif Yousif MD Work Phone: [facility] 08-17-2015 influenza, high dose seasonal, preservative-free Atif Yousif MD Work Phone: [facility] 08-27-2005 pneumococcal polysaccharide vaccine, 23 valent Alex Lloyd Other [facility] Payers Date Payer Category Payer Unknown AARP AARP [id number] [id number]-Present [address] [place] [address] [id number] 2021 Private Health Insurance [facility] AARP SUPPLEMENT [id number] 2021-Present [phone] [address] [place] [address] Indemnity [id number] 2015 Private Health Insurance xxx [id number] 2005 Medicare MEDICARE MEDICAR E A AND B [id number] 2005-Present [phone] [place] [address] Medicare [id number] 2005 Medicare [id number] .[id number] 1959 Medicare [id number] [id number] 1959 Private Health Insurance [id number] 1959 Self-pay 1959 Unknown [id number] 1940 Unknown [id number] 2.16.840.1.099528.3.579.2 .727 1940 Unknown [id number] 2.16.840.1.486723.3.579.2 .727 1940 Unknown [id number] 2.16.840.1.282971.3.579.2 .727 1940 Unknown [id number] 2.16.840.1.550817.3.579.2 .727 1940 Unknown [id number] 2.16.840.1.264852.3.579.2 .727 1940 Unknown [id number] 2.16.840.1.292459.3.579.2 .593 1940 Unknown [id number] 2.16.840.1.442229.3.579.2 .593 1940 Unknown [id number] 2.16.840.1.118942.3.579.2 .593 1940 Unknown [id number] 2.16.840.1.253151.3.579.2 .593 1940 Unknown [id number] 2.840.1.693171.3.579.2 .593 1940 Unknown [id number] 2.840.1.805108.3.579.2 .593 1940 Unknown [id number] 2.840.1.518547.3.579.2 .593 1940 Unknown [id number] 2.840.1.004313.3.579.2 .1259 Medicare Medicare Outpatient [id number] [id number] Unknown [id number] 2..840.1.966946.3.579.2 .593 Social History Date Type Detail Facility Start: 08-18-2014 End: 06-04-2023 Tobacco smoking status NHIS Never smoked tobacco [facility] Start: 08-18-2014 End: 06-04-2023 Tobacco use and exposure Smokeless tobacco non-user [facility] Start: 2022 End: 02-06-2023 Alcohol intake Current drinker of alcohol (finding) [facility] Start: 08-18-2014 History SDOH Alcohol Comment socially [facility] Start: 1940 Sex Assigned At Not on file [facility] Start: 01-28-2022 End: 09-16-2022 Exposure to SARS-CoV-2 (event) Not sure [facility] Start: 02-06-2023 End: 11-27-2023 Sex Assigned At [place] [facility] Start: 06-08-2015 End: 12-09-2023 Tobacco smoking status Ex-smoker (finding) [facility] Comment on above: Quit 50 years ago Start: 02-06-2023 End: 11-27-2023 History of Social function [facility] Adult Depression Screening Assessment 0 [facility] Start: 08-18-2023 End: 11-27-2023 Alcohol intake Lifetime non-drinker (finding) [facility] Start: 1940 Sex Assigned At Female [facility] NEGATED: Highlighted rowStart: NINF History of tobacco use Passive smoker [facility] Medical Equipment Procedure Code Equipment Code Equipment Origin al Text Equipment Identifier Dates Start: 02-17-2023 Functional Status Date Assessment Result Facility 12-26-2022 Functional Status N/A [facility] 10-10-2022 Functional Status N/A [facility] 06-20-2022 Functional Status N/A [facility] 05-02-2022 Functional Status N/A [facility] Clinical Notes 10-16-2021 to 11-27-2023 Chantal Carnes, JÚNIOR - 11/27/2023 11:00 AM EST Note Date [...] every 8 (eight) hours., Disp: , Rfl: [place] 3 340 MG capsule delayed-release, 1 capsule [...] a #15 blade documented in this encounter [facility] 11-06-2023 Evaluation note Encounter Date Diagnosis Assessment Notes Oct, Lumbar spondylosis (ICD-10 - M47.816) [facility] Other 11-02-2023 NoteHNO ID: [id number] Author: Lara Conrad RN Service: ? Author Type: Registered Nurse Type: Progress Notes Filed: 08/21/2023 1:51 PM Note Text: Hgb 12 today. No aranesp required.[facility]11-02-2023 NoteHNO ID: [id number] Author: Atif Yousif MD Service: ? Author [...] 134 mg by mouth daily at bedtime. karwk-4g-fjo-epa-fish oil 300-1,000 mg cpDR Take by mouth. [...] request that her PCP (more content not included)...[facility]10-28-2023 History general Narrative - Reported* Type Description [...] ABOVE Hospitalization History ELEVATED POTASSIUM LEVEL 08/2021 [place] [facility] 10-18-2023 History general Narrative - Reported* [...] ABOVE Hospitalization History ELEVATED POTASSIUM LEVEL 08/2021 [facility] Other 10-17-2023 Evaluation note* Encounter Date Diagnosis Assessment Notes Treatment Notes Treatment Clinical Notes Jul, Lumbar spondylosis (ICD-10 - M47.816) [facility] Other 09-07-2023 NoteHNO ID: [id number] Author: Shanna Lantigua RN Service: ? Author Type: Registered Nurse Type: Progress Notes Filed: 06/26/2023 10:45 AM Note Text: Hgb 11 today. Does not meet parameters for aranesp. No injection today. Pt given copy of labs and agrees with plan. Will make/keep next appointment. [facility]09-07-2023 History of Present illness Narrative* Shanna Lantigua RN - 06/26/2023 10:44 AM EDT Hgb 11 today. Does not meet parameters for aranesp. No injection today. Pt given copy of labs and agrees with plan. Will make/keep next appointment. [facility] Miscellaneous Notes* Telephone Encounter - Delia Brady [...] orders. Delia Brady RN documented [facility] this [facility]08-30-[facility] Evaluation note* Encounter Date Diagnosis Assessment Notes [...] use, the patient reduces the risk for [place], CVA, HTN, cardiac dysrhythmias and sudden cardiac deaths.The patient is also aware of the association between ELAINA and morning headaches, daytime somnolence, fatigue and obesity, which also has been improved with continued use.The patient is compliant with treatment, wearing the equipment every night for greater than 4 hours.The patient is instructed to continue use of the CPAP for ELAINA treatment. [place] [facility] 08-30-2023 History general Narrative - Reported* [...] ABOVE Hospitalization History ELEVATED POTASSIUM LEVEL 08/2021 [place] Other 08-25-2023 History general Narrative - Reported* [...] ABOVE Hospitalization History ELEVATED POTASSIUM LEVEL 08/2021 [place] Other 08-10-2023 Evaluation note* Encounter Date Diagnosis [...] echocardiogram to rule out valvular heart disease. [facility] Other 08-10-2023 History general Narrative - Reported* [...] ABOVE Hospitalization History ELEVATED POTASSIUM LEVEL 08/2021 [place] Other 07-27-2023 History general Narrative - Reported* [...] ABOVE Hospitalization History ELEVATED POTASSIUM LEVEL 08/2021 [place] Other 07-18-2023 History general Narrative - Reported* [...] ABOVE Hospitalization History ELEVATED POTASSIUM LEVEL 08/2021 [place] Other 07-13-2023 NoteHNO ID: [id number] Author: Atif Yousif MD Service: ? Author [...] 134 mg by mouth daily at bedtime. mmxzj-5t-cwz-epa-fish oil 300-1,000 mg cpDR Take by mouth. [...] hemoglobin today is >11 (more content not included)...[facility]07-13-2023 History of Present illness Narrative* [...] 134 mg by mouth daily at bedtime. yoniy-8w-ulm-epa-fish oil 300-1,000 mg cpDR Take by mouth. [...] months since September 2016, currently given at [facility].. Continue management per PCP. Atif Yousif MD CC: Dr. Amin documented in this encounter[facility]06-[facility]-2023 NoteHNO ID: [id number] Author: Chelle Beckford RN Service: ? Author Type: Registered Nurse Type: Progress Notes Filed: 03/20/2023 1:51 PM Note Text: Hgb 11.7, parameter not met for Aranesp. Pt notified and verbalizes understanding. Chelle Beckford RNSalem [facility]06-01-2023 History of Present illness Narrative* Chelle Beckford RN - 03/20/2023 1:41 PM EDT Hgb 11.7, parameter not met for Aranesp. Pt notified and verbalizes understanding. Chelle Beckford RN documented in this encounter[facility]05-30-2023 Evaluation note* Encounter Date Diagnosis Assessment Notes [...] carotid artery (ICD-10 - R09.89) Check carotid [employer] [facility] Other 05-08-2023 Evaluation note* Encounter Date Diagnosis Assessment Notes Treatment Notes Treatment Clinical Notes February, Type 2 diabetes mellitus with hyperglycemia, without long-term current use of insulin (ICD-10 - E11.65) [place] [facility] 05-02-2023 History general Narrative - Reported* [...] ABOVE Hospitalization History ELEVATED POTASSIUM LEVEL 08/2021 [place] Other 05-01-2023 Evaluation note* Encounter Date Diagnosis [...] of right carotid artery (ICD-10 - R09.89) [place] Other 05-01-2023 History general Narrative - Reported* [...] ABOVE Hospitalization History ELEVATED POTASSIUM LEVEL 08/2021 [place] Other 04-29-2023 History general Narrative - Reported* [...] ABOVE Hospitalization History ELEVATED POTASSIUM LEVEL 08/2021 [place] Other 04-20-2023 NoteHNO ID: [id number] Author: Atif Yousif MD Service: ? Author [...] 134 mg by mouth daily at bedtime. byway-6b-jrn-epa-fish oil 300-1,000 mg cpDR Take by mouth. [...] 12/25/2022 Her hemoglobin to (more content not included)...[facility] 02-06-2023 History of Present illness [...] 134 mg by mouth daily at bedtime. lonww-1w-tcz-epa-fish oil 300-1,000 mg cpDR Take by mouth. [...] months since September 2016, currently given at [facility].. Continue management per PCP. Atif Yousif MD CC: Dr. Amin documented in this encounter[facility]04-14-2023 History general Narrative - Reported* Type Description [...] ABOVE Hospitalization History ELEVATED POTASSIUM LEVEL 08/2021 [place] Other 04-10-2023 History general Narrative - Reported* [...] ABOVE Hospitalization History ELEVATED POTASSIUM LEVEL 08/2021 [place] Other 03-12-2023 NoteHOSPITAL REGULATIONS: All Positive and [...] under good control. She is using the [place] twice a day. She states it is [...] claudication, and lumbosacral spondylosis. I reviewed an [place] Automated Rx Report on her which was [...] contract in good standing. Mikey Holden M.D. ed Dictated: 12/26/2022 [id number] Transcribed: 12/28/2022 cc: Alex Lloyd D.O.[facility] ColumbusComment on above:Result Comment: Electronically Signed By: Navin MCLEAN, Mikey\.nirmal\Date and Time Signed: 12/29/22 08:44 [id number] Evaluation note* Encounter Date Diagnosis Assessment Notes [...] as needed Nov, Other Hydrocodone as needed [place] Other 02-08-2023 Evaluation note* Encounter Date Diagnosis [...] poor absorption. I have ordered oral magnesium. [place] Other 01-23-2023 NoteHNO ID: [id number] Author: Atif Yousif MD Service: ? Author [...] 134 mg by mouth daily at bedtime. jdnon-6p-kuu-epa-fish oil 300-1,000 mg cpDR Take by mouth. [...] needed. Return for follow- (more content not included)...[facility]01-23-2023 History of Present illness Narrative* [...] 134 mg by mouth daily at bedtime. dzqcg-9k-ybh-epa-fish oil 300-1,000 mg cpDR Take by mouth. [...] months since September 2016, currently given at [facility].. Continue management per PCP. Atif Yousif MD CC: Dr. Amin documented in this encounterKind[facility]12-23-2022 NoteHOSPITAL REGULATIONS: All Positive and Important Negative [...] persistent but stable. She is using the [place] usually just twice a day. It keeps [...] claudication and lumbosacral spondylosis. I reviewed an [place] Automated Prescription Reporting Systemreport on her which [...] in 2 months or sooner if needed. Mikey Holden M.D. Dictated: 10/10/2022 [id number] Transcribed: 10/10/2022 cc:Alex Lloyd D.O.[facility] ColumbusComment on above:Result Comment: Electronically Signed By: Navin MCLEAN, Mikey\.br\Date and Time Signed: 10/11/22 17:13 [id number] NoteHNO ID: [id number] Author: Maranda Hope APRN.KATIE Service: ? Author Type: Nurse Practitioner Type: [...] 134 mg by mouth daily at bedtime. vdgpw-6m-szu-epa-fish oil 300-1,000 mg cpDR Take by mouth. [...] clinically improved and her (more content not included)...[facility]11-28-2022 History of Present illness Narrative* Maranda Hope APRN.MARKING ROOM SUPERVISOR - 09/16/2022 3:00 PM EST PATIENT NAME: [...] 134 mg by mouth daily at bedtime. qpfzn-8p-gme-epa-fish oil 300-1,000 mg cpDR Take by mouth. [...] months since September 2016, currently given at [facility].. Continue management per PCP. Maranda Hope APRN.CNP CC: Dr. Dolores Benito spent a total of 30 minutes on the date of the service which included preparing to see the patient, bpko-vj-fcyp patient care, completing clinical documentation, obtaining and/or reviewing separately obtained history, performing a medically appropriate examination, counseling and educating the pat ient/family/caregiver, ordering medications, tests, or procedures, independently interpreting results (not separately reported), and communicating results to the patient/family/caregiver. documented in this encounterKind[facility]09-19-2022 History of Present illness Narrative* Atif Yousif [...] 134 mg by mouth daily at bedtime. fftoy-3p-mrd-epa-fish oil 300-1,000 mg cpDR Take by mouth. [...] renal function. I suggested she ask her occupational nurse (Dr. Amin) for his recommendations. 4. 555.9 Crohn's disease Currently stable. Continue management per PCP/gastroenterology. 5. Osteoporosis The patient has been on Prolia every 6 months since September 2016, currently given at [facility].. Continue management per PCP. Atif Yousif MD CC: Dr. Amin documented in this encounterKind[facility]09-07-2022 NoteHOSPITAL REGULATIONS: All Positive and Important Negative [...] is worse with activity. She is using [place] twice a day. She states it is [...] is having the symptoms. I reviewed an [place] Automated Rx Report on her which is [...] the interim. Mikey Holden M.D. Dictated: 06/20/2022 [id number] Transcribed: 06/21/2022 cc:Xenia John [facility] HospitalComment on above:Result Comment: Electronically Signed By: Navin MCLEAN, Mikey\.br\Date and Time Signed: 06/26/22 11:54 [id number] Evaluation note* Encounter Date Diagnosis Assessment Notes [...] goal. Continue to follow with the hematology. [place] Other 08-02-2022 History general Narrative - Reported* [...] ABOVE Hospitalization History ELEVATED POTASSIUM LEVEL 08/2021 [place] Other 07-20-2022 NoteHOSPITAL REGULATIONS: All Positive and [...] is still weak. She is using the [place] twice a day and reports it is [...] fracture and pelvic fractures. I reviewed an [place] Automated Rx Re port on her, which [...] evaluation. Mikey Holden M.D. ca Dictated: 05/02/2022 [id number] Transcribed: 05/04/2022 cc:Alex Lloyd D.O.[facility] ColumbusComment on above:Result Comment: Electronically Signed By: Navin MCLEAN, Mikey\.br\Date and Time Signed: 05/08/22 16:53 [id number] History of Present illness Narrative* Atif Yousif [...] 134 mg by mouth daily at bedtime. ocnds-2a-kvm-epa-fish oil 300-1,000 mg cpDR Take by mouth. [...] months since September 2016, currently given at [facility].. Continue management per PCP. Atif Yousif MD CC: Dr. Amin documented in this encounterKindred Healthcare05-06-2022 NoteHOSPITAL REGULATIONS: All Positive and Important Negative [...] to me first. She is using the [employer] Organic Salon which does help. she denies side effects. [...] stenosis with neurogenic claudication. I reviewed an [place] [employer] Prescription Reporting System report on her which [...] let us know. I will continue the [place] at the same dose for the time being since it is providing her with adequate symptom relief without side effects and she has been compliant with her treatment regimen. I will see her for follow up in two months or sooner if needed. Mikey Holden M.D. Dictated: 02/21/2022 [id number] Transcribed: 02/21/2022 cc:Alex Lloyd D.O.[facility] ColumbusComment on above:Result Comment: Electronically Signed By: Navin MCLEAN, Mikey\.br\Date and Time Signed: 02/22/22 21:49 [id number] History of Present illness Narrative* Atif Yousif [...] 134 mg by mouth daily at bedtime. wgyde-1r-oem-epa-fish oil 300-1,000 mg cpDR Take by mouth. [...] as indicated if iron deficiency recurs. 3. 925.9 Chronic renal insufficiency The patient has a long history of renal insufficiency, worsening since 2020. Baseline creatinine approximately 2. She will continue management per PCP/nephrology. 4. 555.9 Crohn's disease Currently stable. Continue management per PCP/gastroenterology. 5. Osteoporosis The patient has been on Prolia every 6 months since September 2016, currently given at [facility].. Continue management per PCP. Atif Yousif MD CC: Dr. Amin documented in this encounterKindred Healthcare03-29-2022 Evaluation note* Encounter Date Diagnosis Assessment Notes [...] goal. Continue to follow with the hematology. [facility] [employer] Other 12-28-2021 Evaluation note* Encounter Date Diagnosis Assessment Notes [...] baseline creatinine around 1.3 mg/dL. 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 She appears to be euvolemic. Continue current medications. Sep, Secondary hyperparathyroidism (ICD-10 - N25.81) MBD parameters including calcium, phosphorus, PTH and vitamin D are within the goal. [place] Other Evaluation + Plan note Future Appointments Appointment Date:06/20/2022 02:00:00 PM Scheduled Provider:Mikey Holden MD Location:[facility] [place] Appointment Type:Pain Management - [facility] Future Appointments Appointment Date:08/29/2022 01:00:00 PM Scheduled Provider:Mikey Holden MD Location:FT.[facility] [place] Appointment Type:Pain Management - Follow Up ([facility]) [facility] Future Appointments Appointment Date:12/12/2022 09:15:00 AM Scheduled Provider:Mikey Holden MD Location:[facility] [place] Appointment Type:Pain Management - Follow Up (FT) [facility]* Diagnosis Anemia of chronic renal failure, stage 3b (HCC)- Primary Chronic renal impairment, stage 3b (HCC) 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 Essential hypertension Unspecified essential hypertension documented [facility]* Diagnosis Anemia of chronic renal failure, stage 3b (HCC)- Primary documented in [facility]* Diagnosis Iron deficiency- Primary Iron deficiency anemia, unspecified documented in this [facility]* Diagnosis Anemia of chronic renal failure, stage 3b (HCC)- Primary documented in [facility]* Diagnosis Anemia of chronic renal failure, stage 3b (HCC)- Primary Chronic renal impairment, stage 3b (HCC) 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 Essential hypertension Unspecified essential hypertension [facility]No [facility] [employer] Other Evaluation note* Diagnosis Anemia of chronic renal failure, stage 3b (HCC)- Primary Chronic renal impairment, stage 3b (HCC) Iron 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 to blood loss (chronic) documented in this encounter [facility]* Diagnosis Anemia of chronic renal failure, stage 3b (HCC)- Primary [facility]* Diagnosis Anemia of chronic renal failure, stage 3b (HCC)- Primary 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 Essential hypertension Unspecified essential hypertension documented [facility] this [facility]* Diagnosis Anemia of chronic renal failure, stage 3b (HCC)- Primary Chronic renal impairment, stage 3b (HCC) History of iron deficiency Personal history of diseases of blood and blood-forming organs documented in this encounter [facility]* Diagnosis Anemia of chronic renal failure, stage 3b (HCC)- Primary Chronic renal impairment, stage 3b (HCC) History of iron deficiency Personal history of diseases of blood and blood-forming organs documented in this encounter [facility]* Diagnosis Anemia of chronic renal failure, stage 3b (HCC)- Primary Chronic renal impairment, stage 3b (HCC) History of iron deficiency Personal history of diseases of blood and blood-forming organs Primary osteoarthritis involving multiple joints Essential hypertension Unspecified essential hypertension documented [facility] this [facility]* Diagnosis Anemia of chronic renal failure, stage 3b (HCC)- Primary documented [facility] this encounter [facility]* Diagnosis Idiopathic progressive polyneuropathy- Primary Onychomycosis Dermatophytosis of nail Corns and callosities [facility] Diagnosis Onset Date Resolution Status Anemia of renal disease acut e 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 acu te Chronic kidney disease (CKD), stage IV (severe) acute Hyperuricemia acute Hypomagnesemia acute Secondary hyperparathyroidism acute Type 2 diabetes mellitus wit h diabetic chronic kidney disease acute [facility] Work Phone: History general Narrative - Reported* Type Description Date Medical History ACUTE KIDNEY INJURY Medical History HYPERTENSIVE KIDNEY DISEASE STAGE 3 A CHRONIC KIDNEY DISEASE Medical History ANEMIA Medical History HISTORY OF GASTRIC ULCER Surgical History ANTON 1971 Surgical History LAMINECTOMY Surgical History FORAMINOTMY L2-5 Surgical History CARARACTS 2009 Surgical History COLONOSCOPY 01/2019 Surgical History LEFT TKA 01/2009 Surgical History EGD 04/2017 Hospitalization History SEE ABOVE Hospitalization History ELEVATED POTASSIUM LEVEL 08/2021 [place] Other History general Narrative - Reported* Type [...] ABOVE Hospitalization History ELEVATED POTASSIUM LEVEL 08/2021 [place] Other Hospital course Narrative No data available for this section [facility] No data available for this section [facility] No data available for this section [facility] Medications Administered Section Inactive Administered Medications - up to 3 most recent administrations Medication Order MAR Action Action Date Dose Rate Site Darbepoetin Rosemary In Polysorbat 200 mcg injection (ARANESP) 200 mcg, SUBCUTANEOUS, ONCE, 1 dose, On Dilia 02/28/22 at 1500, Protect from light REFRIGERATE Given 02/28/2022 2:48 PM EDT 200 mcg Arm, Right Inactive Administered Medications - up to 3 most recent administrations Medication Order MAR Action Action Date Dose Rate Site Darbepoetin Rosemary In Polysorbat 200 mcg injection (ARANESP) 200 mcg, SUBCUTANEOUS, ONCE, 1 dose, On Fri04/15/22 at 1600, Protect from light REFRIGERATE Given 04/15/2022 3:56 PM EDT 200 mcg Arm, Right Inactive Administered Medications - up to 3 most recent administrations Medication Order MAR Action Action Date Dose Rate Site Darbepoetin Rosemary In Polysorbat 200 mcg injection (ARANESP) 200 mcg, SUBCUTANEOUS, ONCE, 1 dose, On Fri09/16/22 at 1530, Protect from light REFRIGERATE Given 09/16/2022 3:24 PM EST 200 mcg Arm, Left Inactive Administered Medications - up to 3 most recent administrations Medication Order MAR Action Action Date Dose Rate Site Darbepoetin Rosemary In Polysorbat 200 mcg injection (ARANESP) 200 mcg, SUBCUTANEOUS, ONCE, 1 dose, On 12/25/22 at 1000, Protect from light REFRIGERATE Given 12/25/2022 10:00 AM EST 200 mcg Arm, Right Inactive Administered Medications - up to 3 most recent administrations Medication Order MAR Action Action Date Dose Rate Site Darbepoetin Rosemary In Polysorbat 200 mcg injection (ARANESP) 200 mcg, SUBCUTANEOUS, ONCE, 1 dose, On Dilia 02/06/23 at 1000, Protect from light REFRIGERATE Given 02/06/2023 9:58 AM EDT 200 mcg Arm, Right Summary Purpose Family History Relationship Condition Age at Onset Recorded Date/T jagdeep brother Unknown Malignant neoplasm Unknown Hypertension Unknown daughter Heart disease Unknown father Unknown Not Specified Unknown History of stroke Unknown Advance Directives Advance Directive Response Recorded Date/ Time Advance Directives No November 08, 2023 4:38pm Chief Complaint and Reason for Visit Chief Complaint Wellness renal 6 month f/u Reason for Visit Anemia of renal dise ase 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 Chronic kidney disease (CKD), stage IV (severe) Hyperuricemia Hypomagnesemia Secondary hyperparathyroidism Type 2 diabetes mellitus with diabetic chronic kidney disease Additional Source Comments Source Comments (unrecognize d section and content) In the event this informatio n is protected by the Federal Confidentiality of Alcohol and Drug Abuse Patient Records regulations: The Federal rules restrict any use of the information to criminally investigate or prosecute any alcohol or drug abuse patient.[facility] HealthcareIn the event this information is protected by the Federal Confidentiality of Alcohol and Drug Abuse Patient Records regulations: The Federal rules restrict any use of the information to criminally investigate or prosecute any alcohol or drug abuse patient.[facility] HealthcareIn the event this information is protected by the Federal Confidentiality of Alcohol and Drug Abuse Patient Records regulations: The Federal rules restrict any use of the information to criminally investigate or prosecute any alcohol or drug abuse patient.[facility] HealthcareIn the event this information is protected by the Federal Confidentiality of Alcohol and Drug Abuse Patient Records regulations: The Federal rules restrict any use of the information to criminally investigate or prosecute any alcohol or drug abuse patient.[facility] HealthcareIn the event this information is protected by the Federal Confidentiality of Alcohol and Drug Abuse Patient Records regulations: The Federal rules restrict any use of the information to criminally investigate or prosecute any alcohol or drug abuse patient.[facility] HealthcareIn the event this information is protected by the Federal Confidentiality of Alcohol and Drug Abuse Patient Records regulations: The Federal rules restrict any use of the information to criminally investigate or prosecute any alcohol or drug abuse patient.[facility] HealthcareIn the event this information is protected by the Federal Confidentiality of Alcohol and Drug Abuse Patient Records regulations: The Federal rules restrict any use of the information to criminally investigate or prosecute any alcohol or drug abuse patient.[facility] HealthcareIn the event this information is protected by the Federal Confidentiality of Alcohol and Drug Abuse Patient Records regulations: The Federal rules restrict any use of the information to criminally investigate or prosecute any alcohol or drug abuse patient.[facility] HealthcareIn the event this information is protected by the Federal Confidentiality of Alcohol and Drug Abuse Patient Records regulations: The Federal rules restrict any use of the information to criminally investigate or prosecute any alcohol or drug abuse patient.[facility] HealthcareIn the event this information is protected by the Federal Confidentiality of Alcohol and Drug Abuse Patient Records regulations: The Federal rules restrict any use of the information to criminally investigate or prosecute any alcohol or drug abuse patient.[facility] the event this information is protected by the Federal Confidentiality of Alcohol and Drug Abuse Patient Records regulations: The Federal rules restrict any use of the information to criminally investigate or prosecute any alcohol or drug abuse patient.[facility] HealthcareIn the event this information is protected by the Federal Confidentiality of Alcohol and Drug Abuse Patient Records regulations: The Federal rules restrict any use of the information to criminally investigate or prosecute any alcohol or drug abuse patient.[facility] HealthcareIn the event this information is protected by the Federal Confidentiality of Alcohol and Drug Abuse Patient Records regulations: The Federal rules restrict any use of the information to criminally investigate or prosecute any alcohol or drug abuse patient.[facility] the event this information is protected by the Federal Confidentiality of Alcohol and Drug Abuse Patient Records regulations: The Federal rules restrict any use of the information to criminally investigate or prosecute any alcohol or drug abuse patient.[facility] HealthcareIn the event this information is protected by the Federal Confidentiality of Alcohol and Drug Abuse Patient Records regulations: The Federal rules restrict any use of the information to criminally investigate or prosecute any alcohol or drug abuse patient.[facility] HealthcareIn the event this information is protected by the Federal Confidentiality of Alcohol and Drug Abuse Patient Records regulations: The Federal rules restrict any use of the information to criminally investigate or prosecute any alcohol or drug abuse patient.[facility] Reason for Visit (unrecogniz ed section and content) Reason Comments Anemia 1 month follow up Specialty Diagnoses / Procedures Referred By Deloris t Referred To Contact Diagnoses Anemia of chronic renal failure, stage 3b (HCC) Atif Yousif MD [address] [place] [address] [place] [address] Noe Treat [facility] [address] Referral ID Status Reason Start Date Expiration Date V isits Requested Visits Authorized [id number] Authorized 10/30/2021 01/28/2022 99 99 Reason Comments Lab Orders Reason Comments Anemia Reason Comments Anemia 8 week follow up Specialty Diagnoses / Procedures Referred By Contac t Referred To Contact Diagnoses Anemia of chronic renal failure, stage 3b (HCC) Procedures DARBEPOETIN ROSEMARY, NON-ESRD Atif Yousif MD [address] [place] [address] Noe Treat Fadi [address] [place] [address] Referral ID Status Reason Start Date Expiration Date V isits Requested Visits Authorized [id number] Pending Review 10/30/2021 01/28/2022 99 99 Referral ID Status Reason Start Date Expiration Date Visits Requested Visits Authorized Additional Clinical Info Needed 10/30/2021 01/28/2022 99 99 Reason Comments Anemia 2 month follow up Reason Comments Anemia Follow up Referral ID Status Reason Start Date Expiration Date Visits Re quested Visits Authorized [id number] Closed 10/30/2021 01/28/2022 99 99 Reason Comments Orders Reason Comments Toenail Care Care Teams (unrecognized sec tion and content) Clinical Provider Trainer Relationship Specialty Start Date End Date Alex Lloyd DO PCP - General Internal Medicine 10/07/12 Clinical Provider Trainer Relationship Specialty Start Date End Date Alex Lloyd DO PCP - General Internal Medicine 10/07/12 Clinical Provider Trainer Relationship Specialty Start Date End Date Alex Lloyd DO PCP - General Internal Medicine 10/07/12 Clinical Provider Trainer Relationship Specialty Start Date End Date Alex Lloyd DO PCP - General Internal Medicine 10/07/12 Clinical Provider Trainer Relationship Specialty Start Date End Date Alex Lloyd DO PCP - General Internal Medicine 10/07/12 Clinical Provider Trainer Relationship Specialty Start Date End Date Alex Lloyd DO PCP - General Internal Medicine 10/07/12 Clinical Provider Trainer Relationship Specialty Start Date End Date Alex Lloyd DO PCP - General Internal Medicine 10/07/12 Clinical Provider Trainer Relationship Specialty Start Date End Date Alex Lloyd DO PCP - General Internal Medicine 10/07/12 Clinical Provider Trainer Relationship Specialty Start Date End Date Alex Lloyd DO PCP - General Internal Medicine 10/07/12 Clinical Provider Trainer Relationship Specialty Start Date End Date Alex Lloyd DO PCP - General Internal Medicine 10/07/12 Clinical Provider Trainer Relationship Specialty Start Date End Date Alex Lloyd DO PCP - General Internal Medicine 10/07/12 Clinical Provider Trainer Relationship Specialty Start Date End Date Alex Lloyd DO PCP - General Internal Medicine 10/07/12 Clinical Provider Trainer Relationship Specialty Start Date End Date Alex Lloyd DO PCP - General Internal Medicine 10/07/12 Clinical Provider Trainer Relationship Specialty Start Date End Date Alex Lloyd MD [address] [place] [address] PCP - General Internal Medicine 06/06/23 Clinical Provider Trainer Relationship Specialty Start Date End Date Alex Lloyd MD [address] [place] [address] PCP - General Internal Medicine 06/06/23 Team Status: Active Member Role Status Dates Natividad Corona MD Primary Care Provider Active Team Status: Inactive Member Role Status Dates Alex Lloyd DO Attending Provider Active Sta rt: September 18, 2023 End: September 18, 2023 Team Status: Active Member Role Status Dates Alex Lloyd DO Attending Provider Active Sta rt: December 01, 2023 Natividad Corona MD Primary Care Provider Active Start: December 01, 2023 Team Status: Inactive Member Role Status Dates Natividad Corona MD Primary Care Provider Active Start: December 09, 2023 End: December 09, 2023 Mir Amin MD Attending Provider Active Start : December 09, 2023 End: December 09, 2023 INFORMATION SOURCE (unrecogn ized section and content) DATE CREATED AUTHOR 12/31/2022 [employer] [facility] DATE CREATED AUTHOR AUTHOR'S ORGANIZ ATION [facility]/2023 [facility] DATE CREATED AUTHOR AUTHOR'S ORGANIZ ATION 08/23/2023 [facility] DATE CREATED AUTHOR AUTHOR'S ORGANIZ ATION 11/28/2023 [facility] EPIC Goals (unrecognized section and content) Goals may be documented in a n alternate section FOR RECORDS PERTAINING TO PATIENTS WHO ARE [...] BE BASED ON THE PRIMARY CLINICAL RECORDS. [employer]. provides no warranty or guarantee of the accuracy or completeness of information in this document.
--- NOTE | 2023-12-19 10:02 | MM_ITS ---
Patient Name: HENRIETTA GROSS MR#: [id number] : 1940 Exam Date: 12/19/2023 Ordering Doctor: DR Alex Lloyd D.O. RADIOLOGY REPORT PROCEDURE: MM TOMOSYNTHESIS SCREENING BI COMPARISON: MG MAMM SCREEN 3D SHARIF CAD, 12/05/2021. MG MAMM SCREEN 3D SHARIF CAD, 12/11/2022. INDICATIONS: screening Calculator Name NCI Breast Cancer Risk Assessment Tool 5 Year Breast Cancer Risk 1.30% Lifetime Breast Cancer Risk 1.70% Personal Breast Cancer No Personal Ovarian Cancer No Treatments None Family Cancers None LOCATION: [facility] BREAST COMPOSITION: Almost entirely fatty. FINDINGS: DIAGNOSTIC CATEGORY 2--BENIGN FINDING. NO CHANGE FROM COMPARISON. Limited exam with poor visualization of the axillary tails secondary to positioning the patient. Limited evaluation of the right breast. Scattered benign-appearing calcifications are present. RIGHT BREAST: No significant suspicious finding. LEFT BREAST: No significant suspicious finding. RECOMMENDATIONS: ROUTINE MAMMOGRAM AND CLINICAL EVALUATION IN 12 MONTHS. PLEASE NOTE: A NORMAL MAMMOGRAM DOES NOT EXCLUDE THE POSSIBILITY OF BREAST CANCER. A CLINICALLY SUSPICIOUS PALPABLE LUMP SHOULD BE BIOPSIED. Dictated by: Jessee Adkins MD on 12/19/2023 at 11:13 Approved by: Jessee Adkins MD on 12/19/2023 at 11:14
== END 2023-12-19 09:48 | disposition home or self-care (01) ==
LOC: MAMMO 09:48
PROVIDERS: PCP Internal Medicine; Visit Provider Internal Medicine
DX: Z12.31 Encounter for screening mammogram for malignant neoplasm of breast (principal)
CPT/HCPCS: 77063; 77067

== ENCOUNTER 2024-03-17 07:34 | Outpatient (RCR) | payer MEDICARE, SELFPAY ==
[2024-03-17 11:07] VITALS: BP 138/85; PULSE 73; TEMP 36.8; O2SAT 99
[2024-03-17] MEDS: DENOSUMAB 60 MG/ML SYRINGE SUBQ (11:25)
== END 2024-03-19 23:59 | disposition home or self-care (01) ==
LOC: INF 07:34
PROVIDERS: PCP Internal Medicine; Visit Provider Internal Medicine
DX: M81.0 Age-related osteoporosis without current pathological fracture (principal)
CPT/HCPCS: 96372; J0897

== ENCOUNTER 2024-07-06 08:35 | Outpatient (OUT) | payer MEDICARE, SELFPAY ==
[2024-07-06 09:59] LABS: Estimated Average Glucose 169 mg/dL; Glycohemoglobin A1C 7.5 % (4.5-6.2)
== END 2024-07-06 08:36 | disposition home or self-care (01) ==
LOC: LAB 08:36
PROVIDERS: PCP Internal Medicine; Visit Provider Internal Medicine
DX: E11.65 Type 2 diabetes mellitus with hyperglycemia (principal)
CPT/HCPCS: 36415; 83036

== ENCOUNTER 2024-07-06 08:37 | Outpatient (OUT) | payer MEDICARE, SELFPAY ==
[2024-07-06 09:32] LABS: Hematocrit 35.6 % (36.0-48.0); Hemoglobin 11.4 g/dL (12.0-16.0); Mean Corpuscular Hemoglobin 33.4 pg (26.7-34.0); Mean Corpuscular Volume 104.4 fL (81.0-99.0); Mean Platelet Volume 8.8 fL (9.5-13.5); Platelet Count 225 10^3/uL (150-450); Red Blood Count 3.41 10^6/uL (4.20-5.40); Red Cell Distribution Width 13.1 % (11.0-15.0); White Blood Count 4.3 10^3/uL (4.0-11.0)
[2024-07-06 10:06] LABS: Albumin Level 3.3 g/dL (3.4-5.0); Anion Gap 9.4; BUN Creatinine Ratio 24.5; Calcium 9.3 mg/dL (8.5-10.1); Carbon Dioxide 29.9 mmol/L (21.0-32.0); Chloride 103 mmol/L (98-107); Estimated GFR (African America 39 (>=60); Estimated GFR (Non-African Ame 32 (>=60); Glucose 169 mg/dL (74-106); Magnesium 1.7 mg/dL (1.8-2.4); Phosphorus 3.7 mg/dL (2.6-4.7); Potassium 4.3 mmol/L (3.5-5.1); Sodium 138 mmol/L (136-145); Uric Acid 6.8 mg/dL (2.6-6.0)
[2024-07-06 12:47] LABS: Bilirubin Urine NEGATIVE (NEGATIVE); Blood Urine NEGATIVE (NEGATIVE); Clarity Urine CLOUDY (CLEAR); Color Urine LT. YELLOW (YELLOW); Glucose Urine UA 250 mg/dL (NEGATIVE); Ketones Urine NEGATIVE (NEGATIVE); Leukocyte Esterase Urine LARGE (NEGATIVE); Nitrite Urine NEGATIVE (NEGATIVE); Protein Urine NEGATIVE (NEG/TRACE); Urobilinogen Urine 0.2 EU/dL (0.2-1.0)
[2024-07-06 13:02] LABS: Bacteria Urine LARGE #/HPF (NONE SEEN); Cast Seen? NONE SEEN #/LPF (NONE SEEN); Crystals Seen? None Seen #/HPF (None Seen); Mucus Urine NONE SEEN (NONE SEEN); RBC Urine 0-2 #/HPF (0-2); Squamous Epithelial Cell Urine FEW #/LPF (NONE/RARE); WBC Urine 20-50 #/HPF (NONE SEEN)
[2024-07-07 09:10] LABS: PTH, Intact 31 pg/mL (15-65)
== END 2024-07-06 08:38 | disposition home or self-care (01) ==
LOC: LAB 08:38
PROVIDERS: PCP Internal Medicine; Visit Provider Internal Medicine
DX: E83.42 Hypomagnesemia (principal); E11.65 Type 2 diabetes mellitus with hyperglycemia; N25.81 Secondary hyperparathyroidism of renal origin; N18.4 Chronic kidney disease, stage 4 (severe); N18.9 Chronic kidney disease, unspecified; D63.1 Anemia in chronic kidney disease
CPT/HCPCS: 36415; 80069; 81001; 82306; 83036; 83735; 83970; 84550; 85027

== ENCOUNTER 2024-09-22 07:31 | Outpatient (RCR) | payer MEDICARE, SELFPAY ==
[2024-09-22 10:17] VITALS: BP 157/79; PULSE 71; TEMP 35.6; O2SAT 95
[2024-09-22 10:26] LABS: Anion Gap 9.4; BUN Creatinine Ratio 18.4; Calcium 9.8 mg/dL (8.5-10.1); Carbon Dioxide 31.5 mmol/L (21.0-32.0); Chloride 103 mmol/L (98-107); Estimated GFR (African America 31 (>=60 mL/min/1.73m^2); Estimated GFR (Non-African Ame 25 (>=60 mL/min/1.73m^2); Glucose 200 mg/dL (74-106); Potassium 4.9 mmol/L (3.5-5.1); Sodium 139 mmol/L (136-145)
[2024-09-22] MEDS: DENOSUMAB 60 MG/ML SYRINGE SUBQ (10:41)
[2024-09-22 10:46] VITALS: BP 157/79; PULSE 71; TEMP 35.6; O2SAT 95
== END 2024-09-23 07:55 | disposition home or self-care (01) ==
LOC: INF 07:31
PROVIDERS: PCP Internal Medicine; Visit Provider Internal Medicine
DX: M81.0 Age-related osteoporosis without current pathological fracture (principal)
CPT/HCPCS: 36415; 80048; 82306; 96372; J0897

== ENCOUNTER 2024-12-22 10:54 | Outpatient (OUT) | payer MEDICARE, SELFPAY ==
--- NOTE | 2024-12-22 10:58 | MM_ITS ---
Patient Name: HENRIETTA GROSS MR#: [id number] : 1940 Exam Date: 12/22/2024 Ordering Doctor: DR Alex Lloyd D.O. RADIOLOGY REPORT PROCEDURE: MM SCREENING MAMMO BI COMPARISON: MM TOMOSYNTHESIS SCREENING BI, 12/19/2023. MG MAMM SCREEN 3D SHARIF CAD, 12/11/2022. MG MAMM SCREEN 3D SHARIF CAD, 12/05/2021. MG MAMM SHARIF SCRN W CAD DIG, 09/27/2013. INDICATIONS: Screening Calculator Name NCI Breast Cancer Risk Assessment Tool 5 Year Breast Cancer Risk 1.30% Lifetime Breast Cancer Risk 1.40% Personal Breast Cancer No Personal Ovarian Cancer No Treatments None Family Cancers None LOCATION: [facility] BREAST COMPOSITION: The breasts are almost entirely fatty. FINDINGS: DIAGNOSTIC CATEGORY 1--NEGATIVE. RECOMMENDATIONS: ROUTINE MAMMOGRAM AND CLINICAL EVALUATION IN 12 MONTHS. PLEASE NOTE: A NORMAL MAMMOGRAM DOES NOT EXCLUDE THE POSSIBILITY OF BREAST CANCER. A CLINICALLY SUSPICIOUS PALPABLE LUMP SHOULD BE BIOPSIED. RIGHT BREAST: No significant suspicious finding. LEFT BREAST: No significant suspicious finding. Dictated by: Darshan Walker DO on 12/23/2024 at 15:48 Approved by: Darshan Walker DO on 12/23/2024 at 15:50
== END 2024-12-22 10:55 | disposition home or self-care (01) ==
LOC: MAMMO 10:54
PROVIDERS: PCP Internal Medicine; Visit Provider Internal Medicine
DX: Z12.31 Encounter for screening mammogram for malignant neoplasm of breast (principal)
CPT/HCPCS: 77067

== ENCOUNTER 2024-12-22 11:33 | Outpatient (OUT) | payer MEDICARE, SELFPAY ==
[2024-12-22 12:10] LABS: Estimated Average Glucose 177 mg/dL; Glycohemoglobin A1C 7.8 % (4.5-6.2)
== END 2024-12-22 11:34 | disposition home or self-care (01) ==
LOC: LAB 11:35
PROVIDERS: PCP Internal Medicine; Visit Provider Internal Medicine
DX: E11.65 Type 2 diabetes mellitus with hyperglycemia (principal)
CPT/HCPCS: 36415; 83036

== ENCOUNTER 2025-03-31 07:32 | Outpatient (RCR) | payer MEDICARE, SELFPAY ==
[2025-03-31 10:20] LABS: Anion Gap 9.5; Calcium 9.1 mg/dL (8.5-10.1); Carbon Dioxide 31.2 mmol/L (21.0-32.0); Chloride 102 mmol/L (98-107); Estimated GFR (African America 43 (>=60 mL/min/1.73m^2); Estimated GFR (Non-African Ame 35 (>=60 mL/min/1.73m^2); Glucose 303 mg/dL (74-106); Potassium 4.7 mmol/L (3.5-5.1); Sodium 138 mmol/L (136-145)
[2025-03-31 10:39] VITALS: BP 149/88; PULSE 66; TEMP 36.4; O2SAT 95
[2025-03-31] MEDS: DENOSUMAB 60 MG/ML SYRINGE SUBQ (10:49)
== END 2025-04-01 08:24 | disposition home or self-care (01) ==
LOC: LAB 07:32
PROVIDERS: PCP Internal Medicine; Visit Provider Internal Medicine
DX: Z51.81 Encounter for therapeutic drug level monitoring (principal); M81.0 Age-related osteoporosis without current pathological fracture; M19.90 Unspecified osteoarthritis, unspecified site; M85.80 Other specified disorders of bone density and structure, unspecified site
CPT/HCPCS: 36415; 77080; 80048; 82306; 96372; J0897

== ENCOUNTER 2025-08-24 11:32 | Outpatient (OUT) | payer MEDICARE, SELFPAY ==
--- OUTSIDE RECORDS SUMMARY | 2025-08-24 11:36 | XMS_ITS | Clinical Summary ---
Author Organization [employer] s tem Address [id number] [address] [place] [address] Care Team Providers Care Chain Hoist Operator Name Role Phone Alex Lloyd Primary Care Provider [phone] Allergies Active AllergyReactionsCriticalityNoted DyjnZzfpyuvkVshg13/12/2022ulfur 10/31/2021 Medications MedicationSigDispense QuantityRefillsLast FilledStart DateEnd DateStatus amLODIPine (NORVASC) 5 mg tablet Take 1 tablet by mouth daily.09/29/2021ctive carvediloL (COREG) 6.25 mg tablet Take 1 tablet by mouth 2 (two) times a day.08/07/2021ctive famotidine (PEPCID) 20 mg tablet Take 1 tablet by mouth daily.10/29/2021ctive fenofibrate micronized (LOFIBRA) 134 mg capsule Take 1 capsule by mouth daily.08/27/2021ctive gabapentin (NEURONTIN) 100 mg capsule Take 1 capsule by mouth 3 (three) times a day.10/10/2021ctive oxyCODONE (ROXICODONE) 5 mg immediate release tablet Take 1 tablet by mouth 2 (two) times a day.10/11/2021ctive calcium carbonate/vitamin D3 (CALCIUM 600 + D,3, ORAL) Take 1 tablet by mouth daily.Active omega-3s/dha/epa/fish oil (OMEGA 3 ORAL) Take 1 tablet by mouth 2 (two) times a day.Active diphenhydrAMINE-acetaminophen (TYLENOL PM) 25-500 mg tablet Take 1 tablet by mouth nightly as needed for sleep.Active Active Problems No known active problems Family History Medical HistoryRelationNameCommentsAlzheimer's diseaseMotherHypertensionMother RelationNameStatusCommentsFatherDeceasedMotherDeceased Social History Tobacco UseTypesPacks/DayYears UsedDateSmoking Tobacco: QthpzaIkartpcnzo8028 - 1963Smokeless Tobacco: Never Comments:only socially smoke d Alcohol UseStandard Drinks/WeekCommentsNot Currently0 (1 standard drink = 0.6 oz pure alcohol)ChildcareAnswerDate LksfnjktOfsvfqaajAqsqycg41/12/2019Employment AnswerDate TllkosnrPzsxhohvjeNjsygzy68/12/2019CommentsUnknownSex and Gender InformationValueDate RecordedSex Assigned at BirthNot on fileLegal Sex Twqxlp5405/25/2015 11:54 AM EDTGender IdentityNot on fileSexual OrientationNot on file Last Filed Vital Signs Vital SignReadingTime TakenCommentsBlood Bwtgpsmi085/70010/31/2021 9:47 AM EST Pulse--Kmjlknztwxt91.2 ??C (95.3 ??F)10/31/2021 9:47 AM ESTRespiratory Rate-- Oxygen Saturation--Inhaled Oxygen Concentration--Bgkhun25.2 kg (168 lb) 10/31/2021 9:47 AM EVSNilktx173 cm (5' 3 )10/31/2021 9:47 AM ESTBody Mass Index 29.76010/31/2021 9:47 AM EST Plan of Treatment Health MaintenanceDue DateLast DoneCommentsDepression Sbklaigrs02/20/1952Tobacco Oidkknmzb84/20/1952DTaP,Tdap and Td Vaccines (1 - Tdap)02/06/1959Zoster (Shingles) Vaccine (1 of 2)02/06/1990Fall Risk Dbmxoitlo82/20/2005RSV ( or age 60+ yrs) (1 - 1-dose 75+ series)02/06/2015COVID-19 Vaccine (2024- season)5111/04/2020, 12/19/2020, 11/21/2020Influenza Digklay6606/20/2025 08/03/2020, 08/11/2019, 08/18/2018, Additional history exists Medical Devices Not on file Insurance Care Teams Team MemberRelationshipSpecialtyStart DateEnd Alex Lloyd DO [facility] [place] [address] PCP - GeneralInternal Ykeyflxq32/10/21
--- OUTSIDE RECORDS SUMMARY | 2025-08-24 11:36 | XMS_ITS | Clinical Summary ---
Author Organization [facility] Address [address], [address] [place] [address] Care Team Providers Care Horse Identifier Name Role Phone Unavailable Primary Care Provider Unavailabl e Social History Tobacco UseTypesPacks/DayYears UsedDateSmoking Tobacco: Never Assessed CommentsUnknownSex and Gender InformationValueDate RecordedSex Assigned at Not on fileLegal EdmYxzogv63/12/2013 8:45 PM ESTGender IdentityNot on fileSexual OrientationNot on file Plan of Treatment Not on file
--- OUTSIDE RECORDS SUMMARY | 2025-08-24 11:36 | XMS_ITS | Clinical Summary ---
Author Organization [facility] Address [address] [place], [place] [address] Care Team Providers Care Full Decator Operator Name Role Phone Alex Lloyd DO Primary Care Provider [phone] Allergies Active AllergyReactionsCriticalityNoted DateCommentsSulfa (Sulfonamide Antibiotics)Aquccql0110/01/2012Iron TpqpqkpYfvutgw31/13/2012 Medications MedicationSigDispense QuantityRefillsLast FilledStart DateEnd DateStatus carvedilol (COREG) 6.25 mg tablet Take 1 tablet by mouth twice daily.ctive gabapentin (NEURONTIN) 100 mg capsule Take 300 mg by mouth three times daily.10/01/2012ctive lblwa-8p-kgl-epa-fish oil 300-1,000 mg cpDR Take by mouth.Active fenofibrate (LOFIBRA) 134 mg capsule Take 134 mg by mouth daily at bedtime. 05/22/2019Active famotidine (PEPCID) 20 mg tablet Take by mouth twice daily. 10/11/2021ctive amLODIPine (NORVASC) 5 mg tablet 09/29/2021ctive calcium carbonate/vitamin D3 (CALCIUM 600 + D ORAL) Take by mouth.Active HYDROcodone-Acetaminophen (NORCO) 7.5-325 mg per tablet TAKE 1 TABLET BY MOUTH 3 TIMES A DAY NEEDED FOR PAIN09/06/2022ctive magnesium oxide (MAG-OX) 400 mg (241.3 mg magnesium) tablet Take 1 tablet by mouth once daily.Active insulin glargine-yfgn (SEMGLEE) 100 unit/mL (3 mL) insulin pen INJECT 6 UNITS SUBCUTANEOUSLY EVERY EVENING FOR 30 DAYS5Active Active Problems ProblemNoted DateDiagnosed DateAnemia of chronic renal failure, stage 3b 10/30/2021Malaise and pvkkfro2612/05/2017Scoliosis of lumbar spine08/18/2014 Foraminal stenosis of lumbar wlxxsb7008/18/2014Crohn's jvbwmwd2210/07/2012nemia 10/01/2012Chronic renal xbryfeuwvbnvo50/13/2012Iron /13/2012 HypertensionGERD (gastroesophageal reflux disease)Degenerative joint disease ArthritisHyperlipidemiaOsteoarthritis Immunizations ImmunizationAdministration DatesNext DueCOVID-19 original vaccine, full dose, monovalent (MODERNA)12/19/2020,11/21/2020influenza (HD-IIV3) vaccine, age 65+ yr, high dose, trivalent, PF (FLUZONE HIGH-DOSE)08/16/2021,08/13/2017,08/02/2016 ,08/17/2015influenza (IIV4) vaccine, age 6 mo - 64 yr, quadrivalent, PF (AFLURIA, FLUARIX, FLULAVAL, FLUZONE)08/03/2020,08/11/2019,08/18/2018,08/20/2017 ,07/20/2016influenza (LAIV) vaccine, nasal, unspecified tvcvuogmqpn05/28/2021, 08/18/2018influenza (aIIV3) vaccine, age 65+ yr, trivalent, PF (FLUAD)08/04/2018 influenza (aIIV4) vaccine, age 65+ yr, quadrivalent, PF (FLUAD QUAD)08/09/2022 pneumococcal conjugate (PCV13) vaccine, 13 valent (PREVNAR 13)08/09/2016 pneumococcal polysaccharide (PPV23) vaccine, 23 valent (PNEUMOVAX 23)08/03/2016 Family History Medical HistoryRelationCommentsArthritisFatherHTN, CVA, arthritisMotherRelation StatusCommentsFatherMother Social History Tobacco UseTypesPacks/DayYears UsedDateSmoking Tobacco: NeverPassive Smoke Exposure: NeverSmokeless Tobacco: Never Tobacco Cessation:Counseling Given: Not Answered Alcohol UseStandard Drinks/WeekCommentsYes0 (1 standard drink = 0.6 oz pure alcohol)sociallyPHQ-2AnswerDate RecordedPHQ-2 [id number] Deprivation IndexAnswerDate RecordedNational Score (1-100), lower number is lower risk86 03/20/2023State Score (1-10), lower number is lower [id number] from: https://www.neighborhoodatlas.[facility]/. Last address used for [address]CommentsNoSex and Gender InformationValueDate RecordedSex Assigned at BirthNot on fileLegal SexFemale 09/20/2012 10:12 AM ESTGender IdentityNot on fileSexual OrientationNot on file OccupationIndustryJob Start DateJob End DateretiredNot on fileNot on fileNot on file Last Filed Vital Signs Vital SignReadingTime TakenCommentsBlood Ngcdjejs181/8307 2:35 PM EDT Iyhvd693205/16/2025 2:35 PM OTZBfruuowbvpy23.7 ??C (98 ??F)05/16/2025 2:35 PM EDT Respiratory Gsmb231105/16/2025 2:35 PM EDTOxygen Whprnuhvim98%05/16/2025 2:35 PM EDTInhaled Oxygen Concentration--Wyidas04 kg (147 lb 11.3 oz)05/16/2025 2:35 PM NARLffcqw779.4 cm (5')05/16/2025 2:35 PM EDTBody Mass Index28.8507 2:35 PM EDT Plan of Treatment DateTypeDepartmentCare Team (Latest Contact Info)Hdimygxfaoh97/26/2026 2:15 PM ESTOffice Visit [facility] [address] [place] [address] 6 month follow up lab11/14/2025 2:30 PM ESTVisit (SP) Office Hematology/Oncology [address] [place] [address] Jemma Hope APRN.EMERGENCY PLANNER [address] [place] [address] 6 month follow up labHealth MaintenanceDue DateLast DoneCommentsAnxiety Lidestdlr42/20/1958Depression Ydackanzj38/20/1958DTaP,Tdap,Td Vaccine (1 - Tdap) 02/06/1959Medicare Annual Wellness Visit01/18/2005Bone Density Screening 02/06/2005Advance Directive Ppxzigftmp94/01/2025ovid-19 Vaccine ( season), 08/17/2022, 03/08/2022, Additional history exists Influenza Vaccine (#1), 08/15/2023, 08/09/2022, Additional history existsDiabetes Cgslszcuq23, 04/06/2025, 02/22/2025, Additional history existsPneumococcal Vaccine: 50+Aokcjilgq38/21/2016, 08/03/2016, 08/27/2005Shingrix CnleobwYwqomqxmj11/19/2023, 11/18/2022RSV Vaccine Jtwqxqabg18/01/2023 Procedures Procedure NamePriorityDate/TimeAssociated DiagnosisCommentsCOMPREHENSIVE METABOLIC VVTUMRicjmop29/28/2025 2:13 PM EDT Iron deficiency Chronic renal impairment, stage 3 (moderate), unspecified whether stage 3a or 3b CKD (HCC) from Last 3 Months or Most Recently Relevant to Health Maintenance Results * (ABNORMAL) COMPREHENSIVE METABOLIC PANEL (05/16/2025 2:13 PM EDT)Component ValueRef RangeTest MethodAnalysis TimePerformed AtPathologist Signature Protein, Total6.66.3 - 8.0 g/dL05/16/2025 2:47 PM EDTNORTHCO[facility] UP [facility] LABAlbumin4.33.9 - 4.9 g/dL05/16/2025 2:47 PM EDTNORTHCOAST UP [facility] LABCalcium, Total9.68.5 - 10.2 mg/dL05/16/2025 2:47 PM EDTNORTHCST UP [facility]ALTH [facility] LABBilirubin, Total0.30.2 - 1.3 mg/dL 05/16/2025 2:47 PM [facility]CAB[facility] LABAlkaline Ammxvxibcpw29(L)34 - 123 U/L05/16/2025 2:47 PM EDCAB[facility] DZMKNO9403 - 35 U/L05/16/2025 2:47 PM [facility] HJBRDM986 - 38 U/L05/16/2025 2:47 PM EDTGREENBRIER [facility] JVOMoksttp892(H)74 - 99 mg/dL05/16/2025 2:47 PM [facility] LABComment: The [place] Diabetes Association (ADA) provides guidance for cutoff values for fasting glucose andrandom glucose. The ADA defines fasting as no [...] Standards of Medical Care in Diabetes 2016, [place] [employer] Association. Diabetes Care. 2016.39(Suppl 1). BUN29(H)7 - 21 mg/dL05/16/2025 2:47 PM [facility] Creatinine1.31(H)0.58 - 0.96 mg/dL05/16/2025 2:47 PM EDCAB[facility] OQRIfuiry835282 - 144 mmol/L05/16/2025 2:47 PM [facility] LABPotassium4.63.7 - 5.1 mmol/L05/16/2025 2:47 PM EDT [facility] PXAMpmbqotb75496 - 107 mmol/L05/16/2025 2:47 PM [facility] MVPWE01659 - 30 mmol/L05/16/2025 2:47 PM EDC[facility] LABAnion Gap88 - 15 mmol/L05/16/2025 2:47 PM EDTNORTCOREWELL [facility] LABEstimated Glomerular Filtration Rate 40(L)>=60 mL/min/1.73m 05/16/2025 2:47 PM EDTGREENBRIER VALLEY [facility] LABComment:Estimated Glomerular Filtration Rate (eGFR) is calculated using the 2020 CKD-EPI creatinine equation. This equation utilizes serum creatinine, sex, and age as parameters. The creatinine assay has traceable calibration to isotope dilution- mass spectrometry. Refer to KDIGO guidelines for clinical interpretation. In patients with unstable renal function, e.g. those with acute kidney injury, the eGFRmay not accurately reflect actual GFR.Specimen (Source)Anatomical Location / LateralityCollection Method / VolumeCollection TimeReceived TimeBloodBLOOD SPECIMEN / UnknownVenipuncture / Tyfxlqn4405/16/2025 2:13 PM EDT05/16/2025 2:13 PM EDT Narrative Authorizing ProviderResult TypeResult StatusMinjocy MOORE-CLABORATORYFinal ResultPerforming OrganizationAddressCity/State/ZIP CodePhone Number [facility] [address] [place] [address] from Last 3 Months or Most Recently Relevant to Health Maintenance Insurance Care Teams Team MemberRelationshipSpecialtyStart DateEnd Date Alex Lloyd DO PCP - GeneralInternal Hpialzdz01/19/12
--- OUTSIDE RECORDS SUMMARY | 2025-08-24 11:36 | XMS_ITS | Clinical Summary ---
Author Organization [facility] Address [address] [place] [address] Care Team Providers Care Quality Control Assessor Name Role Phone Alex Lloyd DO Primary Care Provider [phone] Allergies Active AllergyReactionsCriticalityNoted DateCommentsFerrous Viwqpyh3506/04/2023 Other Reaction(s): Unknown DloqOwjxr72/12/2022Iron QwwndahVkimcco80/13/2264Yahwodczizrxr82/16/2023 Other Reaction(s): Unknown Medications MedicationSigDispense QuantityRefillsLast FilledStart DateEnd DateStatus amLODIPine (Norvasc) 5 MG tablet 1 (one) time each day at the same timeActive denosumab (Prolia) 60 MG/ML solution prefilled syringe Active famotidine (Pepcid) 20 MG tablet every 12 (twelve) hoursActive fenofibrate (Triglide) 160 MG tablet 1 (one) time each day at the same timeActive gabapentin (Neurontin) 100 MG capsule every 8 (eight) hoursActive [place] 3 340 MG capsule delayed-release 1 capsule every 12 (twelve) hoursActive carvedilol (Coreg) 6.25 MG tablet Active cholecalciferol (KP Vitamin D) 25 MCG (1000 UT) capsule Active Calcium Carbonate-Vit D-Min (Calcium 600+D Plus Minerals) 600-400 MG-UNIT tablet every 12 (twelve) hoursActive magnesium oxide (Mag-Ox) 400 MG tablet Take 400 mg by mouth Daily3Active fenofibrate micronized (Lofibra) 134 MG capsule Take 134 mg by mouth Daily5Active insulin glargine (Lantus) 100 UNIT/ML injection Inject 8 Units under the skin at bedtimeActive Active Problems ProblemNoted DateDiagnosed DateBasal cell carcinoma (BCC) of right lower eyelid 01/21/2025Malignant neoplasm of skin of eyelid, including lovgimf1001/21/2025 Hypertensive renal kzyewjn2707/09/2024Lumbar rgeypqgiafi76/20/2024Osteoporosis 07/09/2024Type 2 diabetes mellitus with abtjwzsdkggac96/20/2024Type 2 diabetes mellitus with diabetic chronic kidney ghjewnc7904/29/2024GERD (gastroesophageal reflux disease)06/06/20237591Osodzvpjqbonti62/18/5322Vowsctjmnvam87/18/2023 Pxnicmkzcsngua11/18/2023Idiopathic progressive orrcnjpcfh53/16/2023Vitamin D deficiency, toiqjkeknim36/16/2023Foraminal stenosis of lumbar camkgz3308/18/2014 Crohn's gvqjizc0510/07/2012Chronic renal ykrrqurimgodq86/13/2012 Encounters DateTypeDepartmentCare XpxrLgwtbzsfpvk31/17/2025 11:15 AM EDTProcedure Visit [facility] [address] [place] [phone] Napoleon Ward DPM Idiopathic progressive polyneuropathy (Primary Dx); Onychomycosis; Corns and ybcjgzohpqr81/17/2025amboo flowsheet [facility] [address] [place] [phone] Napoleon Ward DPM 08/05/20253461Udhhmv77/08/2025 11:15 AM EDTProcedure Visit [facility] [address] [place] [phone] Napoleon Ward DPM Idiopathic progressive polyneuropathy (Primary Dx); Onychomycosis; Corns and dinqdwalajc90/08/2025amboo flowsheet [facility] [address] [place] [phone] Napoleon Ward DPM 05/27/2025Travelfrom Last 3 Months Immunizations ImmunizationAdministration DatesNext DuePneumococcal Polysaccharide PPSV23 08/03/2016 Family History Medical HistoryRelationNameCommentshtnFatherStrokeMotherhtnMotherRelationName StatusCommentsFatherMother Social History Tobacco UseTypesPacks/DayYears UsedDateSmoking Tobacco: NeverSmokeless Tobacco: Never Tobacco Cessation:Counseling Given: Not Answered Alcohol UseStandard Drinks/WeekCommentsNever0 (1 standard drink = 0.6 oz pure alcohol)CommentsUnknownSex and Gender InformationValueDate RecordedSex Assigned at BirthNot on fileLegal DrtCbenjl92/01/2023 8:32 PM EDTGender Identity Not on fileSexual OrientationNot on file Last Filed Vital Signs Vital SignReadingTime TakenCommentsBlood Szbrbbij310/8208/05/2025 11:17 AM EDT Lggai204308/05/2025 11:17 AM EDTTemperature--Respiratory Igeo582104/29/2024 10:58 AM EDTOxygen Saturation--Inhaled Oxygen Concentration--Yzkchb06.6 kg (160 lb) 08/05/2025 11:17 AM BGJQkxbpu071.6 cm (5' 6 )08/05/2025 11:17 AM EDTBody Mass Index25.8208/05/2025 11:17 AM EDT Plan of Treatment DateTypeDepartmentCare Team (Latest Contact Info)Fdtoliehmlo46/19/2025 11:15 AM ESTProcedure Visit [facility] [address] [place] [address] Napoleon Ward, DPZhou [address] [place] [address] Health MaintenanceDue DateLast DoneCommentsDTaP/Tdap/Td Vaccines (1 - Tdap) 02/06/1947COVID-19 Vaccine (2024- season), 03/08/2022, 09/04/2021, Additional history existsPneumococcal Vaccine: 65+ YearsCompleted 08/09/2016, 08/03/2016, 08/27/2005Influenza GemgrjxMiapcmezl02/16/2025, 08/02/2024, 08/15/2023, Additional history existsHIB VaccinesAged OutNo longer eligible based on patient's age to complete this topicHPV VaccinesAged OutNo longer eligible based on patient's age to complete this topicHepatitis A VaccinesAged OutNo longer eligible based on patient's age to complete this topic Hepatitis B VaccinesAged OutNo longer eligible based on patient's age to complete this topicIPV VaccinesAged OutNo longer eligible based on patient's age to complete this topicMeningococcal B VaccineAged OutNo longer eligible based on patient's age to complete this topicMeningococcal VaccineAged OutNo longer eligible based on patient's age to complete this topicRotavirus VaccinesAged Out No longer eligible based on patient's age to complete this topic Insurance Care Teams Team MemberRelationshipSpecialtyStart DateEnd Date Alex Lloyd DO [address] [place] [address] PCP - GeneralInternal Medicine03/25/25
--- OUTSIDE RECORDS SUMMARY | 2025-08-24 11:47 | XMS_ITS | CCD ---
Author Organization [facility] Care Team Providers Care Bottom Liner Name Role Phone Alex Nix DO Primary Care Provider Dolores, Mir Unavailable ALEX NIX Primary Care Physician Alex Nix DO Primary Care Provider Alex Nix DO Primary Care Provider Alex Nix DINAH, DR JOHNSON Admitting Unavailable BALL, DR JOHNSON Attending Unavailable BALL, DR JOHNSON Primary Care Unavailable BALL, DR JOHNSON Primary Care Unavailable DINAH, DR JOHNSON Admitting Unavailable BALL, DR JOHNSON Attending Unavailable BALL, DR JOHNSON Consulting Unavailable ZIEBER, DR MERRILL Yao Consulting Unavailable BALL, DR JOHNSON Primary Care Unavailable DOLORES, MIR Admitting Unavailable DOLORES, MIR Attending Unavailable DOLORES, MIR Consulting Unavailable BALL, DR JOHNSON Primary Care Unavailable DOLORES, MIR Admitting Unavailable DOLORES, MIR Attending Unavailable DOLORES, MIR Consulting Unavailable BALL, DR JOHNSON Admitting Unavailable BALL, DR JOHNSON Attending Unavailable BALL, DR JOHNSON Consulting Unavailable BALL, DR JOHNSON Primary Care Unavailable ZIEBER, DR MERRILL Yao Consulting Unavailable BALL, DR JOHNSON Primary Care Unavailable REQUEST, DR CANNON LISTED Admitting Unavaila ble REQUEST, DR CANNON LISTED Attending Unavaila ble REQUEST, DR CANNON LISTED Consulting Unavaila ble BALL, DR JOHNSON Primary Care Unavailable DINAH, DR JOHNSON Admitting Unavailable BALL, DR JOHNSON Attending Unavailable BALL, DR JOHNSON Primary Care Unavailable BALL, DR JOHNSON Admitting Unavailable BALL, DR JOHNSON Attending Unavailable BALL, DR JOHNSON Consulting Unavailable Alex Nix MD Primary Care Provider Alex Nix DO Primary Care Provider Alex Nix MD Primary Care Provider DO Belinda Marks Attending Unavailable DO Belinda Marks Admitting Alex Batres MD Primary Care Provider Dinah DO, Alex Krysta Primary Care Provider MARANDA SCHMID Attending Unavailable MARANDA SCHMID Referring Unavailable BALL, ALEX E Primary Care Unavailable BALL, ALEX E Primary Care Unavailable MARANDA SCHMID Attending Unavailable ATIF YOUSIF Referring Unavailabl e BALL, ALEX E Primary Care Unavailable BALL, ALEX E Primary Care Unavailable MARANDA SCHMID Attending Unavailable ATIF YOUSIF Referring Unavailabl e BALL, ALEX E Primary Care Unavailable BALL, ALEX E Primary Care Unavailable BALL, ALEX E Referring Unavailable BALL, ALEX E Primary Care Unavailable BALL, ALEX E Primary Care Unavailable Ball Alex PHILLIPS Primary Care Provider [phone] Kelsey Bowers PA-C Attending Provider [phone] Alex Nix DO Attending Provider [phone] Natividad Corona MD Attending Provider [phone] Alex Nix DO Primary Care Provider CHANTAL WARD Attending Unavailabl e CHANTAL WARD Attending Unavailabl e BELINDA MARKS Attending Unavailable BELINDA MARKS Attending Unavailable BELINDA MARKS Attending Unavailable CHANTAL WARD Attending Unavailabl e CHANTAL WARD Attending Unavailabl e CHANTAL WARD Attending Unavailabl e CHANTAL WARD Attending Unavailabl e Allergies Allergy ClassificationReported Allergen(s)Allergy TypeDate of OnsetReaction(s) Facility (20 sources)iron sucrose; Translations: [IRON SUCROSE]Drug [id number] [facility] (20 sources)Sulfonamides (Antibiotic); Translations: [SULFA (SULFONAMIDE ANTIBIOTICS)]Drug Jqbjygn15-25-3764[facility] (20 sources)atorvastatinDrug Kzpgfcs82-45-2064Xixcyvl, Unknown ReactionOhio[facility] (20 sources)IronDrug Ykbmsva58-70-2664Blcbanj, Unknown ReactionOhiohealth Van Wert Hospital (5 sources)sulfaSALAzineDrug AllergyUnknowThe Point Other (20 sources)TetracyclineDrug Mljevxt06-20-7129Oauvoox, Unknown ReactionOhiohealth Van Wert Hospital (5 sources)iron polysaccharide; Translations: [iron polysaccharide]Drug Allergy Weal (disorder)[facility] (6 sources)Sulfamethoxazole; Translations: [sulfamethoxazole]Drug Allergy [facility] (2 sources)IronDrug Jahbyuk74-76-5628Tvt [facility] (2 sources)Sulfonamides (Antibiotic)Drug allergy (disorder)35-78-9980Nci [facility] (4 sources)patient allergy list reviewed by nurse or physiciaPropensity to adverse rhfcbisga71-12-3885Vyfxkfi:[facility] [employer] Other (20 sources)ferrous sulfateDrug Qvtuicy50-56-7067[facility] (20 sources)IronDrug Tlbchyc07-43-7920GqtxgSGLE Healthcare (20 sources)iron sucroseDrug Jgicbnp78-54-2389GdgmpbfZRRX Healthcare (20 sources)SulfanilamideAllergy to eijbrtyqz56-22-6367[facility] (1 source)ferrous gluconate; Translations: [ferrous gluconate]Drug AllergyWeal (disorder)[facility] Medications Current Medications MedicationDrug Class(es)DatesSig (Normalized)Sig (Original)amLODIPine 5 mg oral tablet (20 sources)Dihydropyridine Calcium Channel BlockerStart: 02-18-2024 End: 93-86-5159svap 1 tablet by mouth once dailyStart: 09-29-2021 End: 92-54-1550vpbt 1 tablet by mouth once dailyAmlodipine 5 mg tablet Discontinued 1 TAB PO Daily December 09, 2023 1:00am February 18, 2024 6:17pm F reeTextSig: TAKE 1 TABLET BY MOUTH EVERY DAY; Note: Source Status: Continue; Provider: Dinah Johnson ( )Calcium + D3 600-800 MG-UNIT (20 sources)take 600-800 tablets by mouth once dailyCalcium + D3 600-800 MG-UNIT 1 tablet with a meal Orally Once a day Activecalcium carbonate 1500 mg oral tablet (7 sources)Start: 05-42-8538zivk 1 tablet by mouth once dailyCalcium Carbonate / vitamin D3 (20 sources)calcium carbonate/vitamin D3 (CALCIUM 600 + D ORAL) Take by mouth. Activecalcium carbonate/vitamin D3 (CALCIUM 600 + D ORAL) Take by mouth. 0 ActiveComment on above:Take by mouth.Calcium Carbonate-Vit D-Min (Calcium 600+D Plus Minerals) 600-400 MG-UNIT tablet (20 sources)Calcium Carbonate-Vit D-Min (Calcium 600+D Plus Minerals) 600-400 MG-UNIT tablet every 12 (twelve) hours ActiveCalcium Carbonate-Vit D-Min (Calcium 600+D Plus Minerals) 600-400 MG-UNIT tablet every 12 (twelve) hours. ActiveCalcium Carbonate-Vit D-Min (Calcium 600+D Plus Minerals) 600-400 MG-UNIT tablet every 12 (twelve) hours. 0 ActiveCalcium Citrate / Vitamin D (5 sources)Start: 34-75-7973pmhxoln-vitamin D 1,200 mg, Oral, Daily, Refill(s) 0, 800 mg vitamin d 1200 mg calcium Start Date: 10/23/16 Status: Ordered Repeat number: 1Start: 11-78-6716brceuoi-vitamin D 1,200 mg, Oral, Daily, Refill(s) 0, 800 mg vitamin d 1200 mg calcium Start Date: 10/23/16 Status: Orderedcarvedilol 6.25 mg oral tablet (20 sources)alpha-Adrenergic Juliet, beta-Adrenergic BlockerStart: 01-23-2025 take 1 tablet by mouth twice dailyStart: 09-01-2012 End: 78-28-8908jled 1 tablet by mouth twice dailyCarvedilol 6.25 mg tablet Discontinued 1 TAB PO Twice daily December 09, 2023 1:00am January 23, 2025 2:55pm FreeTextSig: TAKE 1 TABLET BY MOUTH TWICE A DAY; Note: Source Status: Continue; Provider:Dinah Johnson ( )Comment on above:Take 1 tablet by mouth twice daily.cholecalciferol 0.025 mg oral capsule (20 sources)Vitamin Dcholecalciferol ( Vitamin D) 25 MCG (1000 UT) capsule Activetake 1 capsule by mouth once dailycholecalciferol ( Vitamin D) 25 MCG (1000 UT) capsule take 1 by Oral route every day Oral Active1 ml darbepoetin rosemary 0.025 mg/ml injection (7 sources)Erythropoiesis-stimulating AgentStart: 03-55-3613zmqbig 25 ug by subcutaneous injection every week as needed1 ml denosumab 60 mg/ml prefilled syringe (20 sources)RANK Ligand InhibitorStart: 62-98-1462hhlhogwrcg 20 mg oral tablet (20 sources)Histamine-2 Receptor AntagonistStart: 70-98-7216jtpb 1 tablet by mouth twice dailyStart: 10-11-2021 End: 02-39-0035uysd 1 tablet by mouth twice dailyFamotidine 20 mg tablet Discontinued 20 MG PO Twice daily December 09, 2023 1:00am November 6:42pm FreeTextSig: TAKE 1 TABLET BY MOUTH TWICE A DAY; Note: Source Status: Continue; Provider: Dinah Johnson ( )famotidine (Pepcid) 20 MG tablet every 12 (twelve) hours ActiveComment on above:Take by mouth twice daily. fenofibrate 134 mg oral capsule (20 sources)Peroxisome Proliferator Receptor alpha AgonistStart: 12-29-3308neqc 1 capsule by mouth once dailyfenofibrate micronized (Lofibra) 134 MG capsule Take 134 mg by mouth Daily 11/27/2024 ActiveStart: 06-02-2024 End: 75-36-3503wkfx 1 capsule by mouth once dailyStart: 01-08-2018 End: 35-34-5220jlxn 1 capsule by mouth once dailyFenofibrate Micronized 134 mg capsule Discontinued 134 MG PO Daily December 09, 2023 1:00am June 02, 2024 1:31pm FreeTextSig: TAKE 1 CAPSULE BY MOUTH EVERY DAY; Note: Source Status: Continue; Provider: Dinah Johnson ( )fenofibrate (Triglide) 160 MG tablet 1 (one) time each day at the same time ActiveComment on above:Take 134 mg by mouth daily at bedtime. Glucose Meter Test - (16 sources)Start: 05-98-5504Bwfppsa Meter Test - Use to test home BS qd In Vitro daily for 365 days February, ActiveInsulin Glargine-Yfgn (5 sources)Start: 46-19-6257ajzwyb 8 [IU] by subcutaneous injection once daily Start: 05-11-2025 End: 79-27-1372xxpbin 8 [IU] by subcutaneous injection once dailyInsulin Glargine-Yfgn 100 unit/mL (3 mL) insulin pen Discontinued 8 UNIT SUBCUT Daily May 11, 2025 6:01pm July 27, 2025 9:39amStart: 14-61-2372sildlo 8 [IU] by subcutaneous injection once dailyInsulin Glargine-Yfgn 100 unit/mL (3 mL) insulin pen Active 8 UNIT SUBCUT Daily May 11, 2025 6:01pm Complies with drug therapyStart: 04-08-2025 End: 03-85-3655npygdq 6 [IU] by subcutaneous injection once daily in the evening Insulin Glargine-Yfgn 100 unit/mL (3 mL) insulin pen Discontinued 0 .ROUTE .COMPLEX April 08, 2025 1:31pm May 11, 2025 6:02pm INJECT 6 UNITS SUBCUTANEOUSLY EVERY EVENING FOR 30 DAYSinsulin glargine-yfgn (SEMGLEE) 100 unit/mL (3 mL) insulin pen (1 source)Start: 58-06-0817qinmqc 6 [IU] by subcutaneous injection once daily in the eveninginsulin glargine-yfgn (SEMGLEE) 100 unit/mL (3 mL) insulin pen INJECT 6 UNITS SUBCUTANEOUSLY EVERY EVENING FOR 30 DAYS 04/11/2025 Active magnesium oxide 400 mg oral tablet (20 sources)Start: 11-07-2024 End: 55-92-1975lknh 1 tablet by mouth once dailyMagnesium Oxide 400 mg (241.3 mg magnesium) tablet Discontinued 0 .ROUTE .COMPLEX November 07, 2024 3:56pm March 07, 2025 5:14pm TAKE 1 TABLET BY MOUTH EVERY DAYStart: 11-27-2022 End: 20-57-3987djqh 1 tablet by mouth once dailymagnesium oxide (Mag-Ox) 400 MG tablet Take 400 mg by mouth Daily 08/25/2023 ActiveOmega 3 1000 MG (20 sources)take 1 capsule by mouth twice dailyOmega 3 1000 MG 1 capsule Orally twice day ActiveOmega 3 340 MG capsule delayed-release (20 sources)take 1 capsule by mouth every twelve hoursOmega 3 340 MG capsule delayed-release 1 capsule every 12 (twelve) hours Activetake 1 capsule by mouth every twelve hoursOmega 3 340 MG capsule delayed-release 1 capsule every 12 (twelve) hours. Activetake 1 capsule by mouth every twelve hoursOmega 3 340 MG capsule delayed-release 1 capsule every 12 (twelve) hours. 0 ActiveOmega-3 (5 sources)Start: 69-27-8937pwjk 300 mg by mouth twice dailyOmega-3 300 mg, Oral, BID, Refill(s) 0, Prophylaxis Start Date: 09/06/14 Status: Ordered Repeat number: 1Start: 18-99-2555ykxu 300 mg by mouth twice dailyOmega-3 300 mg, Oral, BID, Refill(s) 0, Prophylaxis Start Date: 09/06/14 Status: Orderedomega-3 acid ethyl esters (snf) 1000 mg oral capsule (7 sources)Start: 34-60-0905zjbz 1 capsule by mouth once daily smtbb-3e-gtv-epa-fish oil 300-1,000 mg cpDR (20 sources)yaijg-5u-xzs-epa-fish oil 300-1,000 mg cpDR Take by mouth. Active qmrql-5c-dqm-epa-fish oil 300-1,000 mg cpDR Take by mouth. 0 ActiveComment on above:Take by mouth. Completed/Discontinued Medications MedicationDrug Class(es)DatesSig (Normalized)Sig (Original)acetaminophen 325 mg / HYDROcodone bitartrate 7.5 mg oral tablet (20 sources)Opioid AgonistStart: 09-06-2022 End: 02-04-3884ymhj 1 tablet by mouth three times daily as needed for pain Hydrocodone-Acetaminophen 7.5-325 mg tablet Discontinued 1 TAB PO Three times daily as needed for pain 90 September 28, 2024 November 12, 2024 4:28pm start 08/11Start: 96-39-1035mhqi 1 tablet by mouth three times daily as needed for painNorco 325 mg-7.5 mg oral tablet 1 tab(s), Oral, TID as needed for pain, 90 tab(s), Refill(s) 0, [facility]/pharmacy #[id number], 160, cm, 05/02/22 14:00:00 EDT, Height/Length Dosing, 72.5, kg, 05/02/22 14:00:00 EDT, Weight Dosing Start Date: 05/30/22 Status: OrderedStart: 04-16-2022 End: 46-09-1252grqt 1 tablet by mouth three times daily as needed for painNorco 325 mg-7.5 mg oral tablet 1 tab(s), Oral, TID as needed for pain for 30 day(s), 90 tab(s), Refill(s) 0, [facility]/pharmacy #[id number], 160, cm, 02/21/22 12:46:00 EDT, Height/Length Dosing, 76.2, kg, 02/21/22 12:46:00 EDT, Weight Dosing Start Date: 04/16/22 Stop Date: 05/16/22 Status: Orderedtake 1 tablet by mouth every eight hours as neededHYDROcodone-Acetaminophen 7.5-325 MG 1 tablet as needed Orally every 8 hrs prn ActiveComment on above:TAKE 1 TABLET BY MOUTH 3 TIMES A DAY NEEDED FOR PAINamoxicillin 500 mg oral capsule (20 sources)Penicillin-class AntibacterialStart: 12-09-2023 End: 69-75-0773Nbhwxcrswof 500 mg capsule Discontinued 2000 MG PO as needed December 09, 2023 1:00am December 17, 2023 3:02pm FreeTextSi capsule Orally before dental work; Note: Source Status: Taking; Provider: Dinah Johnson ( )Start: 12-09-2023 End: 80-98-6651Zpbjudxyebf Discontinued 2000 MG PO December 09, 2023 1:00am December 17, 2023 3:02pm FreeTextSi capsule Orally before dental work; Note: Source Status: Taking; Provider: Dinah Johnson ( ) Amoxicillin 500 MG 4 capsule Orally before dental work Activeazithromycin 250 mg oral tablet (3 sources)Macrolide AntimicrobialStart: 2025 End: 71-54-7744Osoqrughuxnc 250 mg tablet Discontinued 250 MG PO .COMPLEX 6 5 2025 12:00am May 12, 2025 10:55am 2 tabs on first day followed by 1 tab on days 2-5erythromycin 0.005 mg/mg ophthalmic ointment (3 sources)Macrolide, Macrolide AntimicrobialStart: 01-28-2025 End: 09-82-9940anwzb 3.5 g into the eye(s) three times dailyerythromycin (Romycin) 5 MG/GM ophthalmic ointment 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, including canthus Apply to right eye 3 (three) times a day for 10 days 3.5 g 01/28/2025 2025 Expiredgabapentin 100 mg oral capsule (20 sources)Anti-epileptic AgentStart: 81-22-5586vfty 1 capsule by mouth twice dailyStart: 12-02-2024 End: 36-13-6729pewz 1 capsule by mouth every eight hoursGabapentin 100 mg capsule Discontinued 100 MG PO Every 8 hours 270 90 December 02, 2024 2:11pm December 29, 2024 11:11amStart: 02-18-2024 End: 05-56-9920yjvo 1 capsule by mouth three times dailyGabapentin 100 mg capsule Discontinued 0 .ROUTE .COMPLEX 270 September 01, 2024 11:18pm December 02, 2024 2:12pm TAKE 1 CAPSULE BY MOUTH 3 TIMES A DAYStart: 10-11-2021 End: 71-11-3431fphz 1 capsule by mouth three times dailyGabapentin 100 mg capsule Discontinued 100 MG PO Three times daily December 09, 2023 1:00am February 18, 2024 6:17pm FreeTextSig: TAKE 1 CAPSULE BY MOUTH THREE TIMES A DAY; Note: Source Status: Continue; Provider: Dinah Johnson ( )Start: 98-66-1326zlrt 3 capsules by mouth three times dailygabapentin (NEURONTIN) 100 mg capsule Take 300 mg by mouth three times daily. 10/01/2012 ActiveComment on above:Take 300 mg by mouth three times daily.3 ml insulin glargine 100 unt/ml pen injector (5 sources)Insulin AnalogStart: 04-07-2025 End: 67-03-2415omiwsi 6 [IU] by subcutaneous injection once daily in the evening Insulin Glargine (Lantus Solostar U-100 Insulin) 100 unit/mL (3 mL) insulin pen Discontinued 6 UNITSUBCUT Every evening 15 April 07, 2025 12:00am April 08, 2025 1:32pminject 8 [IU] by subcutaneous injection at bedtimeinsulin glargine (Lantus) 100 UNIT/ML injection Inject 8 Units under the skin at bedtime Active oxyCODONE hydrochloride 5 mg oral tablet (11 sources)Opioid AgonistStart: 11-13-2021 End: 38-95-8100qxmh 1 tablet by mouth twice daily as needed for painoxyCODONE IR (ROXICODONE) 5 mg immediate release tablet TAKE 1 TABLET BY MOUTH TWICE A DAY NEEDED FOR PAIN 0 11/13/2021 09/16/2022 Discontinued (Discontinued by another Health Care Provider)Comment on above:TAKE 1 TABLET BY MOUTH TWICE A DAY NEEDED FOR PAINtraMADol hydrochloride 50 mg oral tablet (12 sources)Opioid AgonistStart: 05-20-2024 End: 50-01-9486difh 1 tablet by mouth three times daily as needed for pain Tramadol 50 mg tablet Discontinued 50 MG PO Three times daily as needed for pain 90 30 June 28, 2024 5:54pm June 29, 2024 5:31pm Problems Active Problems Problem ClassificationProblemDateDocumented DateEpisodic/ChronicAcute bronchitis (2 sources)Acute infective bronchitis; Translations: [Acute bronchitis due to other specified organisms]54-35-0615UwrqbkrkSlcqfzv kidney disease (20 sources)Chronic kidney disease stage 3B ; Translations: [Chronic renal impairment, stage 3b (HCC)]Onset: 10-01-2012 Resolved: 33-89-0364TyfibrnQcpuvcs kidney disease (20 sources)Chronic kidney disease; Translations: [Chronic kidney disease, stage III (moderate)]Onset: 10-01-2012 Resolved: 20-21-9072Ekwhgzfgsr associated with dizziness or vertigo (7 sources)Benign paroxysmal vertigo, bilateral; Translations: [Benign paroxysmal positional vertigo]EpisodicDeficiency and other anemia (20 sources)Anemia of chronic renal failure; Translations: [Anemia of chronic renal failure, stage 3b (HCC)]Onset: 01-28-0333LdjscutTqrycooayx and other anemia (6 sources)Iron deficiency anemia due to blood loss; Translations: [Iron deficiency anemia secondary to blood loss (chronic)]ChronicDeficiency and other anemia (20 sources)Anemia of renal disease; Translations: [Anemia in chronic kidney disease]ChronicDeficiency and other anemia (6 sources)Anemia in chronic kidney disease; Translations: [ANEMIA IN CHRONIC KIDNEY DISEASE]Onset: 01-15-2022 Resolved: 89-44-9500StspftbKczkdqigoz and other anemia (4 sources)Anemia due to chronic blood loss; Translations: [Iron deficiency anemia secondary to blood loss (chronic)]Onset: 59-76-6209PwsioltYankmsxcho and other anemia (4 sources)Chronic anemia; Translations: [Anemia in other chronic diseases classified elsewhere]ChronicDeficiency and other anemia (1 source)Iron deficiency anemia secondary to blood loss (chronic); Translations: [Iron deficiency anemia dueto chronic blood loss]Onset: 10-01-2012 ChronicDeficiency and other anemia (20 sources)Anemia; Translations: [Anemia, unspecified]Onset: 10-01-2012 Resolved: 293200-45-5645KajmmopyDvkkubxvgt and other anemia (20 sources)Iron deficiency anemia secondary to inadequate dietary iron intake; Translations: [Other iron deficiency anemias]EpisodicDeficiency and other anemia (2 sources)Other iron deficiency anemiasEpisodicDeficiency and other anemia (12 sources)Iron deficiency anemia; Translations: [Other iron deficiency anemias]Onset: 49-67-6941FbcusxidZlkarxvz mellitus with complications (20 sources)Type 2 diabetes mellitus; Translations: [Type 2 diabetes mellitus with hyperglycemia]Onset: 01-83-2810UwqfwchYrsqhwpl mellitus without complication (3 sources)Type 2 diabetes mellitus without complication; Translations: [Type 2 diabetes mellitus without complications]Onset: 579340-87-5074Hguimxu Disorders of lipid metabolism (20 sources)Hyperlipidemia; Translations: [Hyperlipidemia, unspecified]Onset: 809081-86-7435ChjhumrOerbtqwrvh disorders (20 sources)Gastroesophageal reflux disease; Translations: [Gastro-esophageal reflux disease without esophagitis]Onset: 06-06-2023 Resolved: 399756-18-0831SwkxuhoLhnwhkqdt hypertension (20 sources)Essential hypertension; Translations: [Essential (primary) hypertension]Onset: 72-29-3614HxbpsvnPwxjt and electrolyte disorders (4 sources)Hyperkalemia; Translations: [Hyperkalemia]EpisodicGastroduodenal ulcer (except hemorrhage) (5 sources)Gastric hrmii90-90-7046FmvqppfPhihphkmxukayh ulcer (except hemorrhage) (4 sources)H/O: peptic ulcer; Translations: [Personal history of peptic ulcer disease]EpisodicGenitourinary symptoms and ill-defined conditions (4 sources)Dysuria; Translations: [Dysuria]EpisodicHeart valve disorders (1 source)Cardiac murmur, unspecifiedEpisodicHypertension with complications and secondary hypertension (20 sources)Chronic kidney disease due to hypertension; Translations: [Hypertensive chronic kidney disease withstage 1 through stage 4 chronic kidney disease, or unspecified chronic kidney disease]Onset: 10-02-2016 Resolved: 33-55-5973YfovplrEvbdakecnitvt and screening for infectious disease (4 sources)Vaccination given; Translations: [Encounter for immunization]Episodic Mycoses (8 sources)Onychomycosis; Translations: [Tinea unguium]83-04-8798Ojipuxgr Neoplasms of unspecified nature or uncertain behavior (20 sources)Monoclonal gammopathy of uncertain significance; Translations: [Monoclonal gammopathy]ChronicNutritional deficiencies (20 sources)Vitamin D deficiency, unspecified; Translations: [Vitamin D deficiency]Onset: 625092-44-3328ZnkspknZcsklnwpxukysj (20 sources)Degenerative joint disease involving multiple joints; Translations: [Polyosteoarthritis, unspecified]Onset: 14-05-6765DrbdjzbZlwvlxdqwkpv (20 sources)Age-related osteoporosis without current pathological fracture; Translations: [Senile osteoporosis]Onset: 14-73-5343KavafvcOqabs acquired deformities (20 sources)Scoliosis of lumbar spine; Translations: [Scoliosis, unspecified] Onset: 928929-31-3121XlfdcerCildp aftercare (8 sources)Drug therapy finding; Translations: [exterminator (current) use of opiate analgesic]08-48-8678LjtgjufzWruwt aftercare (4 sources)exterminator (current) use of opiate analgesic; Translations: [Long-term (current) use of other medications]09-69-4328XrbcgynzGkdmv circulatory disease (5 sources)Other specified symptoms and signs involving the circulatory and respiratory systemsEpisodicOther connective tissue disease (1 source)Pain of toes of bilateral feet; Translations: [Pain in right toe(s)] 20-26-9678PachbzniGwoyh connective tissue disease (3 sources)Pain in both feet; Translations: [Pain in right foot]11-19-2024 EpisodicOther diseases of kidney and ureters (20 sources)Secondary hyperparathyroidism; Translations: [Secondary hyperparathyroidism of renal origin]86-34-0139BqttpzmTmksd diseases of kidney and ureters (9 sources)Secondary hyperparathyroidism of renal origin; Translations: [Secondary hyperparathyroidism (of renal origin)]Onset: 10-16-2021 Resolved: 26-74-5136HbvgutjWohjh diseases of veins and lymphatics (20 sources)Peripheral venous insufficiency; Translations: [Venous insufficiency (chronic) (peripheral)]Onset: 42-12-1441GazkkboyNycwt diseases of veins and lymphatics (4 sources)Venous insufficiency (chronic) (peripheral)EpisodicOther ear and sense organ disorders (4 sources)Otitis externa of right ear; Translations: [Unspecified otitis externa, right ear]Onset: 87-62-3014VwbkvseSmwrn eye disorders (2 sources)Hemorrhage of eyelid; Translations: [Other specified disorders of eyelid]19-33-0602NrypbvspCwvlv fractures (5 sources)Fracture of suiqeg50-56-6839IrtaigevBowbz fractures (4 sources)Wedge compression fracture of unspecified lumbar vertebra, subsequent encounter for fracture with routine healing; Translations: [Wedge comprsn fx unsp lum vertebra, subs for fx w routn heal]EpisodicOther injuries and conditions due to external causes (5 sources)Fracture of vqbv91-28-8416DbpesyneSyogzox on above:August 2015Other injuries and conditions due to external causes (8 sources)History of fall; Translations: [Personal history of fall]Onset: 57-71-7227CxzcwbymYwrnp injuries and conditions due to external causes (4 sources)Old healed fracture of bone ; Translations: [Personal history of (healed) traumatic fracture]EpisodicOther nervous system disorders (20 sources)Neuropathy; Translations: [Idiopathic progressive neuropathy]Onset: 498205-73-4516AltgzzpIsnes nervous system disorders (8 sources)Idiopathic progressive polyneuropathy; Translations: [Idiopathic progressive neuropathy]15-46-0625FitpdlrMyhfa non-traumatic joint disorders (4 sources)Lower limb joint arthritis; Translations: [Osteoarthrosis, unspecified whether generalized or localized, lower leg]Onset: 39-35-3386Sdtiphc Other nutritional; endocrine; and metabolic disorders (20 sources)Hypomagnesemia; Translations: [Hypomagnesemia]16-67-0783YhjahhqWbifs nutritional; endocrine; and metabolic disorders (5 sources)Hypomagnesemia; 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Other nutritional; endocrine; and metabolic disorders (4 sources)Hypercalcemia; Translations: [Hypercalcemia]Onset: 50-52-2654Fnfhpgy Other nutritional; endocrine; and metabolic disorders (4 sources)Simple obesity ; Translations: [Other obesity due to excess calories] Onset: 04-58-6250BzuuqmxQdbum nutritional; endocrine; and metabolic disorders (4 sources)Body mass index 30+ - obesity; Translations: [Body mass index 31.0- 31.9, adult]Onset: 44-07-3223RfbdnumTxpjo nutritional; endocrine; and metabolic disorders (4 sources)Obese class I; Translations: [Body mass index 32.0-32.9, adult]Onset: 51-19-3134BkwhdilEfocj nutritional; endocrine; and metabolic disorders (4 sources)History of iron deficiency; Translations: [Personal history of other endocrine, nutritional and metabolic disease]EpisodicOther nutritional; endocrine; and metabolic disorders (5 sources)Hyperuricemia without signs of inflammatory arthritis and tophaceous disease; Translations: [Other abnormal blood chemistry]EpisodicOther nutritional; endocrine; and metabolic disorders (4 sources)Overweight; Translations: [Overweight]EpisodicOther nutritional; endocrine; and metabolic disorders (7 sources)Hyperuricemia; Translations: [Hyperuricemia without signs of inflammatory arthritis and tophaceous disease]33-80-9054SynmogxgEntfk screening for suspected conditions (not mental disorders or infectious disease) (9 sources)Encounter for screening mammogram for malignant neoplasm of breast; Translations: [Blood chemistry abnormal]Onset: 307856-12-6469BewfzoxhDsduc skin disorders (8 sources)Callosity; Translations: [Corns and callosities]97-33-6178Vjrumjfl Otitis media and related conditions (7 sources)Eustachian tube salpingitis; Translations: [Unspecified Eustachian salpingitis, bilateral] Resolved: 727920-99-2000ZgbkygewAvfwcbvl enteritis and ulcerative colitis (20 sources)Crohn's disease; Translations: [Crohn's disease, unspecified, without complications]Onset: 168727-52-3112KixbolsFzcigjsjmts; intervertebral disc disorders; other back problems (20 sources)Other spondylosis with myelopathy, lumbar region; Translations: [Lumbar spondylosis with myelopathy]Onset: 70-29-9186JvnjuwkYamvnjp disorders (4 sources)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; Translations: [Thyrotoxicosis of other specified origin without mention of thyrotoxic crisis or storm]Onset: 51-46-5378YpxfpkxOefarzgeqcjb (5 sources)Long-term current use of opiate analgesic drugOnset: 05-02-2022 80-38-2393Ywwnfdw on above:Added secondary to current Opioid Treatment Agreement Unclassified (4 sources)Urine finding; Translations: [Other nonspecific finding on examination of urine]Onset: 73-19-7514Lyfdkglsciay (4 sources)Retained foreign body, unspecified material; Translations: [Retained foreign body, unspecified material]Onset: 02-04-1873Odgnx infection (4 sources)Disease caused by 2019-nCoV; Translations: [COVID-19] Past or Other Problems Problem ClassificationProblemDateDocumented DateEpisodic/ChronicAcute and unspecified renal failure (5 sources)Acute kidney failure, unspecified; Translations: [Acute renal failure syndrome]Onset: 10-16-2021 Resolved: 80-88-3088BgbowexwKptwg posthemorrhagic anemia (4 sources)Acute posthemorrhagic anemia; Translations: [Acute posthemorrhagic anemia]Onset: 46-97-6766IhaorontXadtfktni infection; unspecified site (4 sources)Bacterial infectious disease; Translations: [Bacterial infection, unspecified, in conditions classified elsewhere and of unspecified site]Onset: 41-38-7771KkncquroRizbswbpqx and other anemia (1 source)Anemia, unspecifiedOnset: 10-16-2021 Resolved: 77-62-9006GiyevtqyVytotskszm disorders (8 sources)Esophageal disorders; Translations: [Gastro-esophageal reflux disease with esophagitis, without bleeding]Gastrointestinal hemorrhage (4 sources)Acute gastric ulcer with hemorrhage but without obstruction; Translations: [Acute gastric ulcer with hemorrhage, without mention of obstruction]Onset: 49-12-4709SrxhfizvCyhutmq and fatigue (20 sources)Malaise and fatigue; Translations: [Other malaise]Onset: 12-05-2017 78-35-5844OxperawfOhjmirpllba deficiencies (20 sources)Iron deficiency; Translations: [Iron deficiency]Onset: 10-01-2012 57-05-7870KjstucubTsxty circulatory disease (4 sources)Cardiovascular symptoms; Translations: [Other symptoms involving cardiovascular system]Onset: 21-41-0515CyxtvwlnNteot connective tissue disease (4 sources)Spasm; Translations: [Spasm of muscle]Onset: 47-54-9303SvcfxeflKvobd diseases of kidney and ureters (2 sources)Chronic renal insufficiency; Translations: [Disorder of kidney and ureter, unspecified]Onset: 959512-58-3680VzygmhqzXoqkb ear and sense organ disorders (4 sources)Impacted cerumen; Translations: [Impacted cerumen]Onset: 02-06-2017 EpisodicOther fractures (5 sources)Fracture of pelvisOnset: 658120-61-2025PuorkrlhUswzr non- epithelial cancer of skin (20 sources)Basal cell carcinoma of lower eyelid; Translations: [Basal cell carcinoma of skin of right lower eyelid, including canthus]Onset: 01-21-2025 29-15-6071PdcnydwcRcvoq non-traumatic joint disorders (4 sources)Pain in right hip joint; Translations: [Pain in right hip]Onset: 86-22-2703XykkpavnRyvls skin disorders (4 sources)Hypertrophic condition of skin; Translations: [Other hypertrophic disorders of the skin] Resolved: 43-00-4889EbcdhmhoRfwmv skin disorders (4 sources)Actinic keratosis; Translations: [Actinic keratosis]Onset: 10-30-2016 EpisodicOther skin disorders (4 sources)Localized swelling, mass and lump, neck; Translations: [Localized swelling, mass and lump, neck]Onset: 39-89-1269FqczpbhiBvato skin disorders (4 sources)Localized swelling, mass and lump, unspecified lower limb; Translations: [Localized swelling, mass and lump, unspecified lower limb]Onset: 71-46-6283NleqglvcEnjdm upper respiratory disease (4 sources)Bleeding from nose; Translations: [Epistaxis]Onset: 12-16-2014 EpisodicOther upper respiratory infections (8 sources)Acute maxillary sinusitis; Translations: [Acute recurrent maxillary sinusitis]Onset: 41-64-3779BgcyrfkfCktbpdrcwpd; intervertebral disc disorders; other back problems (20 sources)Stenosis of lumbar vertebral foramen; Translations: [Spinal stenosis, lumbar region without neurogenic claudication]Onset: 09-07-2013 27-35-8686CezjxfydOhnermj and strains (4 sources)Neck sprain; Translations: [Strain of muscle, fascia and tendon at neck level, initial encounter]Onset: 94-05-4528XxaylffxAjzrdqoytbx injury; contusion (4 sources)Contusion of hand; Translations: [Contusion of hand(s)]Onset: 82-30-1374TcntmelgDexlylr tract infections (8 sources)Acute cystitis; Translations: [Acute cystitis with hematuria]Onset: 10-16-2017 Resolved: 81-17-5202Eldfmoaz Results Test NameValueInterpretationReference EityvWrpvrcyhLdH9d HPLC (Bld) [Mass fraction]Ordered By: Alex Nix on 87-95-6979LlE1h (Bld) [Mass fraction]7.0 % [facility] HospitalBasophils Auto (Bld) [#/Vol]Ordered By: KELSEY BOWERS on 12-80-2565Idrpzswlo (Bld) [#/Vol]0.03 10*3/uL<0.11[facility] HospitalBasophils/100 WBC Auto (Bld)Ordered By: KELSEY BOWERS on 05-16-2025 Basophils/100 WBC (Bld)0.5 %[facility] HospitalBlood manual differential comment interpretation narrativeOrdered By: KELSEY BOWERS on 70-27-2082Muhxyq differential comment Ankit (Bld) [Interp]AutoOhiohealth Van Wert HospitalCB W Auto Differential panel (Bld)on 48-22-8048Lijvcvatp (Bld) [#/Vol]0.03 10*3/uLNormal<0.11CUniversity [facility] on above:Order Comment: Specimen Type: BLOOD SPECIMEN Ordering Facility: [facility] Address: [address] [place], [place] [address]Performed By: #### 02816-8 #### [facility] CLIA [id number] [address] [place], [place] [address]Bmyqiudwa/100 WBC (Bld)0.5 %NormalGerman Hospital Comment on above:Order Comment: Specimen Type: BLOOD SPECIMEN Ordering Facility: [facility] Address: [address] [place], [place] [address]Performed By: #### 85685-7 #### [facility] CLIA [id number] [address] [place] [address] 51928Ugpjxpprizfr cell count method Nom (Bld)AutoNormalCAvita Health System Galion HospitalCommclaren [place] on above:Order Comment: Specimen Type: BLOOD SPECIMEN Ordering Facility: [facility] Address: [address] [place], [place] [address]Performed By: #### 91138-9 #### [facility] [place] [id number] [address] [place] [address] 55809Kjimswxgvnn (Bld) [#/Vol]0.21 10*3/uLNormal<0.46[facility] on above:Order Comment: Specimen Type: BLOOD SPECIMEN Ordering Facility: [facility] Address: [address] [place], [place] [address]Performed By: #### 06905-0 #### [facility] [place] [id number] [address] [place] [address] 21008Gzhskebdutw/100 WBC (Bld)3.8 %NormalGerman Hospital Comment on above:Order Comment: Specimen Type: BLOOD SPECIMEN Ordering Facility: [facility] Address: [address] [place], [place] [address]Performed By: #### 92007-3 #### [facility] CLIA [id number] [address] [place] [address] 27098Pcdghbciazn distribution width (RBC) [Ratio]13.0 %Normal 11.5-15.0[facility] on above:Order Comment: Specimen Type: BLOOD SPECIMEN Ordering Facility: [facility] Address: [address] [place], [place] [address]Performed By: #### 06262-3 #### [facility] CLIA [id number] [address] [place], [place] [address]Txovuokgxz (Bld) [Volume fraction]35.0 %Low36.0-46.0[facility] on above:Order Comment: Specimen Type: BLOOD SPECIMEN Ordering Facility: [facility] Address: [address] [place], [place] [address]Performed By: #### 88074-2 #### [facility] CLIA [id number] [address] [place] [address] 42912Bsmcsjbxpb (Bld) [Mass/Vol]11.5 g/rMCqsska64.5-15.5CUniversity [facility]als [facility] on above:Order Comment: Specimen Type: BLOOD SPECIMEN Ordering Facility: [facility] Address: [address] [place], [place] [address]Performed By: #### 18574-1 #### [facility] CLIA [id number] [address] [place] [address] 95990Rrovwqnn granulocytes (Bld) [#/Vol]10*3/uLNormal<0.10[facility] on above:Order Comment: Specimen Type: BLOOD SPECIMEN Ordering Facility: [facility] Address: [address] [place], [place] [address]Performed By: #### 35527-8 #### [facility] CLIA [id number] [address] [place] [address] 20180Kvoafebc granulocytes/100 WBC (Bld)0.4 %NormalBluffton Hospital on above:Order Comment: Specimen Type: BLOOD SPECIMEN Ordering Facility: [facility] Address: [address] [place], [place] [address]Performed By: #### 32687-7 #### [facility] CLIA [id number] [address] [place] [address] 22418Hkctwcbhzaz (Bld) [#/Vol]1.28 10*3/uLNormal1.00-4.00[facility] on above:Order Comment: Specimen Type: BLOOD SPECIMEN Ordering Facility: [facility] Address: [address] [place], [place] [address]Performed By: #### 10183-5 #### [facility] CLIA [id number] [address] [place] [address] 44224Kmngphsttsa/100 WBC (Bld)22.9 %NormalBluffton Hospital on above:Order Comment: Specimen Type: BLOOD SPECIMEN Ordering Facility: [facility] Address: [address] [place], [place] [address]Performed By: #### 67898-3 #### [facility] CLIA [id number] [address] [place] [address] 73440RTL (RBC) [Entitic mass]34.0 tzIcugaa50.0-34.0[facility] on above:Order Comment: Specimen Type: BLOOD SPECIMEN Ordering Facility: [facility] Address: [address] [place], [place] [address]Performed By: #### 92712-1 #### [facility] CLIA [id number] [address] [place] [address] 74990FVCG (RBC) [Mass/Vol]32.9 g/wCRiodyg43.5-36.0[facility] on above:Order Comment: Specimen Type: BLOOD SPECIMEN Ordering Facility: [facility] Address: [address] [place], [place] [address]Performed By: #### 91017-1 #### [facility] CLIA [id number] [address] [place] [address] 18743KAP (RBC) [Entitic vol]103.6 rJAmyq68.0-100.0[facility] on above:Order Comment: Specimen Type: BLOOD SPECIMEN Ordering Facility: [facility] Address: [address] [place], [place] [address]Performed By: #### 44327-9 #### [facility] CLIA [id number] [address] [place], [place] [address]Paveawzbe (Bld) [#/Vol]0.43 10*3/uLNormal<0.87[facility] on above:Order Comment: Specimen Type: BLOOD SPECIMEN Ordering Facility: [facility] Address: [address] [place], [place] [address]Performed By: #### 78167-6 #### [facility] CLIA [id number] [address] [place], [place] [address]Ctbnzagpu/100 WBC (Bld)7.7 %NormalGerman Hospital Comment on above:Order Comment: Specimen Type: BLOOD SPECIMEN Ordering Facility: [facility] Address: [address] [place], [place] [address]Performed By: #### 54156-7 #### [facility] CLIA [id number] [address] [place] [address] 76259Hekahrfpnfn (Bld) [#/Vol]3.61 10*3/uLNormal1.45-7.50[facility] on above:Order Comment: Specimen Type: BLOOD SPECIMEN Ordering Facility: [facility] Address: [address] [place], [place] [address]Performed By: #### 84810-4 #### [facility] CLIA [id number] [address] [place] [address] 46809Fwmujwzakqm/100 WBC (Bld)64.7 %NormalBluffton Hospital on above:Order Comment: Specimen Type: BLOOD SPECIMEN Ordering Facility: [facility] Address: [address] [place], [place] [address]Performed By: #### 93317-9 #### [facility] CLIA [id number] [address] [place] [address] 95097Hjltnnqla RBC (Bld) [#/Vol]10*3/uLNormal<0.01[facility] on above:Order Comment: Specimen Type: BLOOD SPECIMEN Ordering Facility: [facility] Address: [address] [place], [place] [address]Performed By: #### 90451-4 #### [facility] CLIA [id number] [address] [place], [place] [address]Ewhognghl RBC/100 WBC (Bld) [Ratio]0.0 /100 WBCNormalCUniversity Hospitals [facility] on above:Order Comment: Specimen Type: BLOOD SPECIMEN Ordering Facility: [facility] Address: [address] [place], [place] [address]Performed By: #### 06297-8 #### [facility] CLIA [id number] [address] [place], [place] [address]Dmzdjoio mean volume (Bld) [Entitic vol]8.7 fLLow9.0-12.7 [facility] on above:Order Comment: Specimen Type: BLOOD SPECIMEN Ordering Facility: [facility] Address: [address] [place], [place] [address]Performed By: #### 34000-9 #### [facility] CLIA [id number] [address] [place] [address] 75[address]Pxyiuutew (Bld) [#/Vol]190 10*3/aKFrlilu034-531EhribrpodBluffton Hospital on above:Order Comment: Specimen Type: BLOOD SPECIMEN Ordering Facility: [facility] Address: [address] [place], [place] [address]Performed By: #### 80304-9 #### [facility] CLIA [id number] [address] [place] [address] 26563QOH (Bld) [#/Vol]3.38 10*6/uLLow3.90-5.20[facility] on above:Order Comment: Specimen Type: BLOOD SPECIMEN Ordering Facility: [facility] Address: [address] [place], [place] [address]Performed By: #### 44349-0 #### [facility] CLIA [id number] [address] [place] [address] 28076ZCE (Bld) [#/Vol]5.58 10*3/uLNormal3.70-1100[facility] on above:Order Comment: Specimen Type: BLOOD SPECIMEN Ordering Facility: [facility] Address: [address] [place], [place] [address]Anamjtveg By: #### 08988-3 #### [facility] CLIA [id number] [address] [place] [address] 88336SPAOQHtv 83-01-3973WETYVNCywiu (SP) Office ([place]) HENRIETTA GROSS ([id number]) 1940 F Date Time Provider Department 05/16/25 2:30 PM MARANDA SCHMID During your visit today, we recorded the following information about you: Temperature Pulse Respiration Blood pressure 98 degrees 82/minute 16/minute 168/83 Weight Height 67 kg 1.524 m Maranda Schmid APRN.CNP 05/16/2025 8:44 PM Signed PATIENT NAME: Henrietta Gross DATE: 05/16/2025 PRIMARY CARE PHYSICIAN: Dr. Alex Nix OTHER PHYSICIANS: Dr. Holden (pain management), Dr. Flores, Dr. Amin Portions of this encounter note have been copied from the note from 02/22/2025 and has been updated where appropriate, and reflect my current medical decision making from today. CC: This is an 85 year old female with chronic anemia, seen for scheduled follow-up. INTERIM HISTORY: Patient reports a recent decrease in hemoglobin levels, which had been stable at 12 g/dL a year ago, but recently dropped. Current hemoglobin is 11.5 g/dL. Patient is on insulin therapy, administered at night with morning glucose monitoring. Recent glucose readings were 101 mg/dL this morning and 112 mg/dL yesterday. Insulin dosage was recently increased from 6 to 8 units. She monitors her glucose levels daily and is advised to report if readings fall below 100 mg/dL for two consecutive days. Her hemoglobin A1c is monitored every three months. Patient is under the care of a molecular pathologist for CKD stage 3, with stable renal function. Recent labs show creatinine at 1.31 mg/dL, BUN at 29 mg/dL, and eGFR at 40 mL/min/1.73m?. She is seen annually by her molecular pathologist, with the frequency of visits previously every six months. Patient reports weight loss, currently weighing 147 lbs, and attributes this to loss of muscle mass. She experiences limitations in physical activity due to back and bone issues. She is taking a multivitamin that includes B12 and has reduced calcium supplementation as per her molecular pathologist's recommendation. MEDICATIONS: insulin glargine-yfgn (SEMGLEE) 100 unit/mL (3 mL) insulin pen INJECT 6 UNITS SUBCUTANEOUSLY EVERY EVENING FOR 30 DAYS magnesium oxide (MAG-OX) 400 mg (241.3 mg magnesium) tablet Take 1 tablet by mouth once daily. HYDROcodone-Acetaminophen (NORCO) 7.5-325 mg per tablet TAKE 1 TABLET BY MOUTH 3 TIMES A DAY NEEDED FOR PAIN calcium carbonate/vitamin D3 (CALCIUM 600 + D ORAL) Take by mouth. famotidine (PEPCID) 20 mg tablet Take by mouth twice daily. amLODIPine (NORVASC) 5 mg tablet fenofibrate (LOFIBRA) 134 mg capsule Take 134 mg by mouth daily at bedtime. npmku-1h-ilp-epa-fish oil 300-1,000 mg cpDR Take by mouth. [...] No weight loss, malaise or fevers. Increasing fatigue- improved. HEENT: Negative for frequent or significant headaches. [...] seizures or tremors. PHYSICAL EXAM: Vitals: BP 168/83 Pulse 82 Temp 36.7 ?C (98 ?F) (Temporal) Resp 16 Ht 152.4 cm (5') Wt 67 kg (147 lb 11.3 oz) SpO2 95% BMI 28.85 kg/m? ECOG 1 Exam limited to gross visualization where appropriate. Gen.: This is an age-appropriate patient in no acute distress. Head: Appears atraumatic with no visible lesions. Eyes: Pupils equally round and reactive to light, extraocular muscles are intact. Neck: Supple. Respiratory: Appears to be respiring comfortably. Neurologic: Nonfocal to gross visualization. Alert and oriented ?3. Psychiatric: No evidence of inappropriate anxiety or depression. Skin: Visible areas of skin without augusto (more content not included)...Normal [facility] HospitalComprehensive metabolic 2000 panelon 56-49-3414Gbbqfnj [Mass/Vol]4.3 g/dLNormal3.9-4.9CUniversity [facility] on above:Order Comment: Specimen Type: BLOOD SPECIMEN Ordering Facility: [facility] Address: [address] [place], [place] [address]Performed By: #### 54858-8 #### [facility] CLIA [id number] [address] [place] [address] 35585AOF [Catalytic activity/Vol]25 U/VImj66-136JpvynpcitBluffton Hospital on above:Order Comment: Specimen Type: BLOOD SPECIMEN Ordering Facility: [facility] Address: [address] [id number] By: #### 84719-9 #### [facility] CLIA [id number] [address] [place], [place] [address]LTZ [Catalytic activity/Vol]11 U/LNormal7-38[facility] on above:Order Comment: Specimen Type: BLOOD SPECIMEN Ordering Facility: [facility] Address: [address] [place], [place] [address]Performed By: #### 94906-4 #### [facility] CLIA [id number] [address] [place] [address] 80869Vjkxk gap [Moles/Vol]8 mmol/LNormal8-15[facility] on above:Order Comment: Specimen Type: BLOOD SPECIMEN Ordering Facility: [facility] Address: [address] [place], [place] [address]Performed By: #### 34045-3 #### [facility] CLIA [id number] [address] [place] [address] 45106UTQ [Catalytic activity/Vol]18 U/QWuvnks60-41YkhiaasyjBluffton Hospital on above:Order Comment: Specimen Type: BLOOD SPECIMEN Ordering Facility: [facility] Address: [address] [place], [place] [address]Performed By: #### 39048-4 #### [facility] CLIA [id number] [address] [place] [address] 775[address]Affcjkhbg [Mass/Vol]0.3 mg/dLNormal0.2-1.3CUniversity [facility]als [facility] on above:Order Comment: Specimen Type: BLOOD SPECIMEN Ordering Facility: [facility] Address: [address] [place], [place] [address]Performed By: #### 34346-1 #### [facility] CLIA [id number] [address] [place] [address] 74017Syoswkj [Mass/Vol]9.6 mg/dLNormal8.5-10.2CUniversity [facility]als [facility] on above:Order Comment: Specimen Type: BLOOD SPECIMEN Ordering Facility: [facility] Address: [address] [place], [place] [address]Performed By: #### 47783-5 #### [facility] CLIA [id number] [address] [place], [place] [address]Qtwooike [Moles/Vol]102 mmol/EPpnnyh84-784YcvrkjcohBluffton Hospital on above:Order Comment: Specimen Type: BLOOD SPECIMEN Ordering Facility: [facility] Address: [address] [place], [place] [address]Performed By: #### 40906-8 #### [facility] CLIA [id number] [address] [place], [place] [address]ID2 [Moles/Vol]28 mmol/BRezonq32-52DvcipjjcxGerman Hospital Comment on above:Order Comment: Specimen Type: BLOOD SPECIMEN Ordering Facility: [facility] Address: [address] [place], [place] [address]Performed By: #### 22530-7 #### [facility] CLIA [id number] [address] [place] [address] 933[address]Qfqkzgswsl [Mass/Vol]1.31 mg/dLHigh0.58-0.96[facility] on above:Order Comment: Specimen Type: BLOOD SPECIMEN Ordering Facility: [facility] Address: [address] [place], [place] [address]Performed By: #### 26310-8 #### [facility] CLIA [id number] [address] [place] [address] 61813qOPQrz SerPlBld CKD-EPI 986166 mL/min/1.73m???Low>=60[facility] on above:Order Comment: Specimen Type: BLOOD SPECIMEN Ordering Facility: [facility] Address: [address] [place], [place] [address]Result Comment: Estimated Glomerular Filtration Rate (eGFR) is calculated using the 2020 CKD-EPI cre atinine equation. This equation utilizes serum creatinine, sex, and age as parameters. The creatinine assay has traceable calibration to isotope dilution- mass spectrometry. Refer to KDIGO guidelines for clinical interpretation. In patients with unstable renal function, e.g. those with acute kidney injury, the eGFR may not accurately reflect actual GFR.Performed By: #### 44168-8 #### [facility] CLIA [id number] [address] [place], [place] [address]Kyhrnvt [Mass/Vol]180 mg/xRLmci63-50HiyahnrfjGerman Hospital Comment on above:Order Comment: Specimen Type: BLOOD SPECIMEN Ordering Facility: [facility] Address: [address] [place], [place] [address]Result Comment: The [place] Diabetes Association (ADA) provides guidance for cutoff [...] Standards of Medical Care in Diabetes 2016, [place] Diabetes Association. Diabetes Care. 2016.39(Suppl 1).Performed By: #### 40690-2 #### [facility] CLIA [id number] [address] [place] [address]Qbzujivcc [Moles/Vol]4.6 mmol/LNormal3.7-5.1CGreene Memorial Hospitalment on above:Order Comment: Specimen Type: BLOOD SPECIMEN Ordering Facility: [facility] Address: [address] [place], [place] [address]Performed By: #### 80210-4 #### [facility] CLIA [id number] [address] [place], [place] [address]Zdhfrro [Mass/Vol]6.6 g/dLNormal6.3-8.0[facility] on above:Order Comment: Specimen Type: BLOOD SPECIMEN Ordering Facility: [facility] Address: [address] [place], [place] [address]Performed By: #### 70637-1 #### [facility] CLIA [id number] [address] [place] [address] [place] [address]Augcnm [Moles/Vol]138 mmol/XAyxsju265-692QzumsslmtBluffton Hospital on above:Order Comment: Specimen Type: BLOOD SPECIMEN Ordering Facility: [facility] Address: [address] [place], [place] [address]Performed By: #### 42758-3 #### [facility] CLIA [id number] [address] [place], [place] [address]Ixsd nitrogen [Mass/Vol]29 mg/dLHigh7-21[facility] on above:Order Comment: Specimen Type: BLOOD SPECIMEN Ordering Facility: [facility] Address: [address] [place], [place] [address]Performed By: #### 04463-4 #### [facility] CLIA [id number] [address] [place] [address]Gaxgdwfqviu/100 WBC Auto (Bld)Ordered By: KELSEY BOWERS on 17-08-1449Ulboxxvqesv/100 WBC (Bld)3.8 %[facility] Erythrocyte distribution width Auto (RBC) [Ratio]Ordered By: KELSEY BOWERS on 90-75-4660Veexwjvnvni distribution width (RBC) [Ratio]13.0 %11.5-15.0[facility]ert HospitalFerritin SerPl-mCncon 81-28-5878Bxmbecik [Mass/Vol]209.0 ng/rYPhnv38.7-205.1CUniversity [facility]als [facility] on above:Order Comment: Specimen Type: BLOOD SPECIMEN Ordering Facility: [facility] Address: [address] [place], [place] [address]Performed By: #### 35774-3, 2276-4 #### [facility] CLIA [id number] [address] [place] [id number] [place] [address] [place] OF AMERICAHematocrit Auto (Bld) [Volume fraction]Ordered By: KELSEY BOWERS on 18-92-2866Ksnsiukikz (Bld) [Volume fraction]35.0 %Low36.0-46.0[facility] HospitalHemoglobin [Mass/volume] in BloodOrdered By: KELSEY BWOERS on 93-49-2002Bktesspzsv (Bld) [Mass/Vol]11.5 g/dL11.5-15.5FKettering HealthIron and Iron binding capacity panelon 38-96-6476Nkai [Mass/Vol]101 ug/vAOutjlv27-364UqziwqnvnBluffton Hospital on above:Order Comment: Specimen Type: BLOOD SPECIMEN Ordering Facility: [facility] Address: [address] [place], [place] [address]Performed By: #### 12070-8, 2275-4 #### [facility] CLIA [id number] [address] [place] [address] [place] AMERICAIron binding capacity [Mass/Vol]345 ug/eWIymxfo520-142VvvjsjiwlBluffton Hospital on above:Order Comment: Specimen Type: BLOOD SPECIMEN Ordering Facility: [facility] Address: [address] [place], [place] [address]Performed By: #### 73959-2, 4 #### [facility] IA [id number] [address] [place] [address] [place] AMERICAIron/TIBC [Molar ratio]29.3 %Fexodz61.0-57.0[facility] on above:Order Comment: Specimen Type: BLOOD SPECIMEN Ordering Facility: [facility] Address: [address] [place], [place] [address]Performed By: #### 89074-9, 2276-01 #### [facility] CLIA [id number] [address] [place], [place] [address] [place] AMERICAIron binding capacity [Mass/volume] in Serum or PlasmaOrdered By: KELSEY BOWERS on 01-45-6388Lkjb binding capacity [Mass/Vol]345 ug/uF612-352KfvcjznwwOhiohealth Van Wert HospitalIron saturation [Mass Fraction] in Serum or PlasmaOrdered By: KELSEY BOWERS on 56-88-9486Hada saturation [Mass fraction]29.3 %15.0-57.0[facility] HospitalLaboratory - Chemistry and Chemistry - challengeOrdered By: KELSEY BOWERS on 08-10-3790Txmltkbw [Mass/Vol]209.0 ng/zYLdyl38.7-205.1FKettering HealthIron [Mass/Vol]101 ug/sV89-055MdlmwpiphOhiohealth Van Wert HospitalLaboratory - Hematology and Cell countsOrdered By: KELSEY BOWERS on 79-25-0745Fehblnvdwfi (Bld) [#/Vol]0.21 10*3/uL<0.46[facility] HospitalImmature granulocytes/100 WBC (Bld)0.4 %[facility] Leukocytes [#/volume] corrected for nucleated erythrocytes in Blood by Automated counOrdered By: KELSEY BOWERS on 98-73-6391MAB corrected for nucl RBC Auto (Bld) [#/Vol]5.58 k/uL3.70-11.00[facility] HospitalLymphocytes Auto (Bld) [#/Vol]Ordered By: KELSEY BOWERS on 61-65-1869Uuxqojkvysj (Bld) [#/Vol]1.28 10*3/uL1.00-4.00[facility] HospitalLymphocytes/100 WBC Auto (Bld) Ordered By: KELSEY BOWERS on 10-94-5432Cbhxxqkecvt/100 WBC (Bld)22.9 %[facility] HospitalH Auto (RBC) [Entitic mass]Ordered By: KELSEY BOWERS on 82-60-3475IDH (RBC) [Entitic mass]34.0 pg26.0-34.0[facility] HospitalMCHC Auto (RBC) [Mass/Vol]Ordered By: KELSEY BOWERS on 59-66-0988RLVV (RBC) [Mass/Vol]32.9 g/dL30.5-36.0[facility] HospitalMCV Auto (RBC) [Entitic vol]Ordered By: KELSEY BOWERS on 95-32-6239ZYZ (RBC) [Entitic vol]103.6 lPNesg83.0-100.0[facility] HospitalMonocytes Auto (Bld) [#/Vol] Ordered By: KELSEY BOWERS on 04-96-8445Dzxgwunbh (Bld) [#/Vol]0.43 10*3/uL<0.87 [facility] HospitalMonocytes/100 WBC Auto (Bld)Ordered By: KELSEY BOWERS on 25-59-2281Jxvwcvaln/100 WBC (Bld)7.7 %[facility] HospitalNeutrophils Auto (Bld) [#/Vol]Ordered By: KELSEY BOWERS on 05-16-2025 Neutrophils (Bld) [#/Vol]3.61 10*3/uL1.45-7.50[facility] Neutrophils/100 WBC Auto (Bld)Ordered By: KELSEY BOWERS on 05-16-2025 Neutrophils/100 WBC (Bld)64.7 %[facility] HospitalNo Panel InformationOrdered By: KELSEY BOWERS on 26-33-4734Fmviepap Granulocyte # (Auto) <0.03 k/uL<0.10[facility] HospitalNucleated RBC Auto (Bld) [#/Vol] Ordered By: KELSEY BOWERS on 61-57-3697Wmugprpul RBC (Bld) [#/Vol]10*3/uL<0.01 [facility] HospitalNucleated erythrocytes [Presence] in Blood by Automated countOrdered By: KELSEY BOWERS on 47-21-9129Rkgfjhkac RBC Auto Ql (Bld) 0.0 /100{WBC}[facility] HospitalPlatelet mean volume Auto (Bld) [Entitic vol]Ordered By: KELSEY BOWERS on 12-40-9116Ujxcpfue mean volume (Bld) [Entitic vol]8.7 fLLow9.0-12.7FKettering HealthPlatelets Auto (Bld) [#/Vol]Ordered By: KELSEY BOWERS on 65-08-0817Ebiwbytgo (Bld) [#/Vol]190 10*3/rW225-375BnjogpjgiOhiohealth Van Wert HospitalRBC Auto (Bld) [#/Vol]Ordered By: KELSEY BOWERS on 19-16-1158VFJ (Bld) [#/Vol]3.38 10*6/uLLow3.90-5.20[facility] Wert HospitalCNPNon 71-46-9097VNNSNxekrzisy (HEMASA) HENRIETTA GROSS ([id number]) 1940 F Date Time Provider Department 05/09/25 POOL ESCOBEDO During your visit today, we recorded the following information about you: Pool Escobedo RN 05/09/2025 2:30 PM Signed Labs pended for RTC 05/16/25 with Pool Escobedo RN Allergies As of Date: 05/09/2025 Noted Allergy Reaction SULFA (SULFONAMIDE ANTIBIOTICS) 10/01/2012 16 - Unknown VENOFER (IRON SUCROSE) 10/01/2012 16 - Unknown Date Reviewed: 05/09/2025 Reviewed by: Kelsey Bowers PA-C - Fully Assessed Reason for Visit: Lab Orders [1688] Primary Visit Diagnosis:Iron deficiency [E61.1] Other Visit Diagnosis:Chronic renal impairment, stage 3 (moderate), unspecified whether stage 3a or 3b CKD (HCC) [N18.30] Order(s):COMPLETE BLOOD COUNT AND DIFFERENTIAL [SQCBCDIF] Order #: [id number] FUTURE COMPREHENSIVE METABOLIC PANEL [SQCMP] Order #: [id number] FUTURE IRON AND TIBC [SQIRON] Order #: [id number] FUTURE FERRITIN [SQFERR] Order #: [id number] FUTURE Prescriptions as of 05/09/2025 - magnesium oxide (MAG-OX) 400 mg (241.3 mg magnesium) tablet Take 1 tablet by mouth once daily. - HYDROcodone-Acetaminophen (NORCO) 7.5-325 mg per tablet TAKE 1 TABLET BY MOUTH 3 TIMES A DAY NEEDED FOR PAIN - calcium carbonate/vitamin D3 (CALCIUM 600 + D ORAL) Take by mouth. - famotidine (PEPCID) 20 mg tablet Take by mouth twice daily. - amLODIPine (NORVASC) 5 mg tablet - fenofibrate (LOFIBRA) 134 mg capsule Take 134 mg by mouth daily at bedtime. - avciu-6y-kbq-epa-fish oil 300-1,000 mg cpDR Take by mouth. - carvedilol (COREG) 6.25 mg tablet Take 1 tablet by mouth twice daily. - gabapentin (NEURONTIN) 100 mg capsule Take 300 mg by mouth three times daily. Problem List As Of Date 05/09/2025 Noted Resolved Anemia [D64.9] 10/01/2012 Chronic renal [...] failure, stage 3b (HCC)*10/30/2021 Encounter Status:Closed by POOL ESCOBEDO on 05/09/25NormalCEast [facility] W Auto Differential panel (Bld)on 33-94-2880Agpwvujer (Bld) [#/Vol] 0.03 10*3/uLNormal<0.11CUniversity [facility]als [facility] on above:Order Comment: Specimen Type: BLOOD SPECIMEN Ordering Facility: [facility] Address: [address] [place], [place] [address]Performed By: #### 69436-5, 2276-01 #### [facility] CLIA [id number] [address] [place], [place] [address] [address] [place] AMERICABasophils/100 WBC (Bld)0.5 % NormalBluffton Hospital on above:Order Comment: Specimen Type: BLOOD SPECIMEN Ordering Facility: [facility] Address: [address] [place], [place] [address]Performed By: #### 69984-0, 2276-01 #### [facility] CLIA [id number] [address] [place] [address] [place] AMERICADifferential cell count method Nom (Bld)AutoNormalCUniversity Hospitals [facility] on above:Order Comment: Specimen Type: BLOOD SPECIMEN Ordering Facility: [facility] Address: [address] [place], [place] [address]Performed By: #### 51633-6, 2276-01 #### [facility] CLIA [id number] [address] [place] [address] [place] AMERICAEosinophils (Bld) [#/Vol] 0.23 10*3/uLNormal<0.46[facility] on above:Order Comment: Specimen Type: BLOOD SPECIMEN Ordering Facility: [facility] Address: [address] [place], [place] [address]Performed By: #### 14734-4, 2276-01 #### [facility] CLIA [id number] [address] [place] [address] [place] AMERICAEosinophils/100 WBC (Bld)3.7 %NormalBluffton Hospital on above:Order Comment: Specimen Type: BLOOD SPECIMEN Ordering Facility: [facility] Address: [address] [place], [place] [address]Performed By: #### 58995-2, 2276-01 #### [facility] CLIA [id number] [address] [place] [address] [place] AMERICAErythrocyte distribution width (RBC) [Ratio]13.2 %Ogtzlt98.5-15.0[facility] on above:Order Comment: Specimen Type: BLOOD SPECIMEN Ordering Facility: [facility] Address: [address] [place], [place] [address]Performed By: #### 62081-0, 2276-01 #### [facility] CLIA [id number] [address] [place], [place] [address] [place] AMERICAHematocrit (Bld) [Volume fraction]34.2 %Low36.0-46.0[facility] on above:Order Comment: Specimen Type: BLOOD SPECIMEN Ordering Facility: [facility] Address: [address] [place], [place] [address]Performed By: #### 48008-9, 2276-01 #### [facility] CLIA [id number] [address] [place] [address] [place] AMERICAHemoglobin (Bld) [Mass/Vol] 11.3 g/dLLow11.5-15.5CUniversity Hospitals [facility] on above:Order Comment: Specimen Type: BLOOD SPECIMEN Ordering Facility: [facility] Address: [address] [place], [place] [address]Performed By: #### 79199-9, 2276-01 #### [facility] CLIA [id number] [address] [place] [address] [place] AMERICAImmature granulocytes (Bld) [#/Vol]10*3/uLNormal<0.10[facility] on above:Order Comment: Specimen Type: BLOOD SPECIMEN Ordering Facility: [facility] Address: [address] [place], [place] [address]Performed By: #### 19706-6, 2276-01 #### [facility] CLIA [id number] [address] [place] [address] [place] AMERICAImmature granulocytes/100 WBC (Bld)0.3 %NormalBluffton Hospital on above:Order Comment: Specimen Type: BLOOD SPECIMEN Ordering Facility: [facility] Address: [address] [place], [place] [address]Performed By: #### 59163-4, 2276-01 #### [facility] CLIA [id number] [address] [place] [address] [place] AMERICALymphocytes (Bld) [#/Vol] 1.36 10*3/uLNormal1.00-4.00[facility] on above:Order Comment: Specimen Type: BLOOD SPECIMEN Ordering Facility: [facility] Address: [address] [place], [place] [address]Performed By: #### 34655-7, 2276-01 #### [facility] CLIA [id number] [address] [place] [address] [place] AMERICALymphocytes/100 WBC (Bld) 21.6 %NormalBluffton Hospital on above:Order Comment: Specimen Type: BLOOD SPECIMEN Ordering Facility: [facility] Address: [address] [place], [place] [address]Performed By: #### 85569-2, 2276-01 #### [facility] CLIA [id number] [address] [place] [address] STATES OF AMERICAMCH (RBC) [Entitic mass]33.9 czGqnjcy48.0-34.0[facility] on above:Order Comment: Specimen Type: BLOOD SPECIMEN Ordering Facility: [facility] Address: [address] [place], [place] [address]Performed By: #### 40263-2, 2276-01 #### [facility] CLIA [id number] [address] [place] [address] JOHN OF GOD HOSPITALMCHC (RBC) [Mass/Vol]33.0 g/qMGsrcup08.5-36.0[facility] on above:Order Comment: Specimen Type: BLOOD SPECIMEN Ordering Facility: [facility] Address: [address] [place], [place] [address]Performed By: #### 42049-3, 2276-01 #### [facility] CLIA [id number] [address] [place] [address] [facility] HOSPITALV (RBC) [Entitic vol]102.7 vKGnmt58.0-100.0[facility] on above:Order Comment: Specimen Type: BLOOD SPECIMEN Ordering Facility: [facility] Address: [address] [place], [place] [address]Performed By: #### 36810-2, 2275-4 #### [facility] CLIA [id number] [address] [place], [place] [address] [place] AMERICAMonocytes (Bld) [#/Vol]0.50 10*3/uLNormal<0.87[facility] on above:Order Comment: Specimen Type: BLOOD SPECIMEN Ordering Facility: [facility] Address: [address] [place], [place] [address]Performed By: #### 24800-7, 2276-01 #### [facility] CLIA [id number] [address] [place] [address] [place] AMERICAMonocytes/100 WBC (Bld)7.9 % NormalBluffton Hospital on above:Order Comment: Specimen Type: BLOOD SPECIMEN Ordering Facility: [facility] Address: [address] [place], [place] [address]Performed By: #### 06107-4, 2276-01 #### [facility] CLIA [id number] [address] [place] [address] [place] AMERICANeutrophils (Bld) [#/Vol] 4.16 10*3/uLNormal1.45-7.50[facility] on above:Order Comment: Specimen Type: BLOOD SPECIMEN Ordering Facility: [facility] Address: [address] [place], [place] [address]Performed By: #### 73873-6, 2276-01 #### [facility] CLIA [id number] [address] [place], [place] [address] [place] AMERICANeutrophils/100 WBC (Bld) 66.0 %NormalBluffton Hospital on above:Order Comment: Specimen Type: BLOOD SPECIMEN Ordering Facility: [facility] Address: [address] [place], [place] [address]Performed By: #### 01897-0, 2276-01 #### [facility] CLIA [id number] [address] [place] [address] [place] AMERICANucleated RBC (Bld) [#/Vol] 10*3/uLNormal<0.01[facility] on above:Order Comment: Specimen Type: BLOOD SPECIMEN Ordering Facility: [facility] Address: [address] [place], [place] [address]Performed By: #### 77958-4, 2276-01 #### [facility] CLIA [id number] [address] [place] [address] [place] AMERICANucleated RBC/100 WBC (Bld) [Ratio]0.0 /100 WBCNormalCUniversity Hospitals [facility]auga Medical Center on above:Order Comment: Specimen Type: BLOOD SPECIMEN Ordering Facility: [facility] Address: [address] [place], [place] [address]Performed By: #### 59116-6, 2276-01 #### [facility] CLIA [id number] [address] [place] [address] [place] AMERICAPlatelet mean volume (Bld) [Entitic vol]8.6 fLLow9.0-12.7CUniversity Hospitals [facility] on above:Order Comment: Specimen Type: BLOOD SPECIMEN Ordering Facility: [facility] Address: [address] [place], [place] [address]Performed By: #### 63304-9, 2276-01 #### [facility] CLIA [id number] [address] [place] [address] [place] AMERICAPlatelets (Bld) [#/Vol]193 10*3/dFTriela982-410DiqsyhzafBluffton Hospital on above:Order Comment: Specimen Type: BLOOD SPECIMEN Ordering Facility: [facility] Address: [address] [place], [place] [address]Performed By: #### 07993-4, 2276-01 #### [facility] CLIA [id number] [address] [place] [address] [place] AMERICARBC (Bld) [#/Vol]3.33 10*6/uLLow3.90-5.20[facility] on above:Order Comment: Specimen Type: BLOOD SPECIMEN Ordering Facility: [facility] Address: [address] [place], [place] [address]Performed By: #### 23249-9, 6-4 #### [facility] [id number] [address] [place] [address] [place] AMERICAWBC (Bld) [#/Vol]6.30 10*3/uLNormal3.70-11.00[facility] on above:Order Comment: Specimen Type: BLOOD SPECIMEN Ordering Facility: [facility] Address: [address] [place], [place] [address]Performed By: #### 06186-4, 2275-4 #### [facility] [id number] [address] [place] [address] STATES OF VCRPTZJLrK9y (Bld)on 04-06-2025 Average glucose Estimated from glycated hemoglobin (Bld) [Mass/Vol]183 mg/dL NormalBluffton Hospital on above:Order Comment: Specimen Type: BLOOD SPECIMEN Ordering Facility: [facility] Address: [address] [place], [place] [address]Result Comment: eAG: (Estimated average glucose) is a calculated value from HgbA1c and is construction sales representative of the average blood glucose level in the last 2-3 month period.Performed By: #### 94982-5, 6-4 #### [facility] [id number] [address] [place] [address] [place] WBESAPUMaJ6w (Bld) [Mass fraction] 8.0 %High4.3-5.6CUniversity Hospitals [facility] Center on above:Order Comment: Specimen Type: BLOOD SPECIMEN Ordering Facility: [facility] Address: [address] [place], [place] [address]Result Comment: [place] [employer] guidelines indicate that patients with HgbA1c in the range 5.7-6.4% are at increased risk for development of diabetes, and intervention by lifestyle modification may be beneficial. HgbA1c greater or equal to 6.5% is considered diagnostic of diabetes.Performed By: #### 21070-8, 2276-4 #### [facility] CLIA [id number] [address] [place] [address] [place] [id number] [facility] CENTERCNPNon [id number] Telephone (LABSAN) HENRIETTA GROSS ([id number]) 1940 F Date Time Provider Department 03/31/25 MARANDA SCHMID During your visit today, we recorded the following information about you: Jose Miranda 03/31/2025 7:19 AM Signed Patient coming in for lab only 04/06/25 with no orders. Please review and place needed lab. 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 - HYDROcodone-Acetaminophen (NORCO) 7.5-325 mg per tablet TAKE 1 TABLET BY MOUTH 3 TIMES A DAY NEEDED FOR PAIN - calcium carbonate/vitamin D3 (CALCIUM 600 + D ORAL) Take by mouth. - famotidine (PEPCID) 20 mg tablet Take by mouth twice daily. - amLODIPine (NORVASC) 5 mg tablet - fenofibrate (LOFIBRA) 134 mg capsule Take 134 mg by mouth daily at bedtime. - trsar-3f-rie-epa-fish oil 300-1,000 mg cpDR Take by mouth. - carvedilol (COREG) 6.25 mg tablet Take 1 tablet by mouth twice daily. - gabapentin (NEURONTIN) 100 mg capsule Take 300 mg by mouth three times daily. Problem List As Of Date 03/31/2025 Noted Resolved Anemia [D64.9] 10/01/2012 Chronic renal [...] failure, stage 3b (HCC)*10/30/2021 Encounter Status:Closed by MARANDA SCHMID on 03/31/25Normal[facility]ast [facility] Auto Differential panel (Bld)on [id number] (Bld) [#/Vol] 10*3/uLNormal<0.11CUniversity [facility] on above:Order Comment: Specimen Type: BLOOD SPECIMEN Ordering Facility: [facility] Address: [address] [place], [place] [id number] By: #### 32501-8, 2276-4 #### [facility] CLIA [id number] [address] [place] [address] [place] AMERICABasophils/100 WBC (Bld)0.4 % NormalBluff[facility] on above:Order Comment: Specimen Type: BLOOD SPECIMEN Ordering Facility: [facility] Address: [address] [place], [place] [address]Performed By: #### [id number], 2276-01 #### [facility] CLIA [id number] [address] [place] [address] [place] AMERICADifferential cell count method Nom (Bld)AutoNormalCUniversity [facility]als [facility] on above:Order Comment: Specimen Type: BLOOD SPECIMEN Ordering Facility: [facility] Address: [address] [place], [place] [address]Performed By: #### [id number], 2276-01 #### [facility] CLIA [id number] [address] [place] [address] [place] AMER[place]AEosinophils (Bld) [#/Vol] 0.26 10*3/uLNormal<0.46[facility] on above:Order Comment: Specimen Type: BLOOD SPECIMEN Ordering Facility: [facility] Address: [address] [place], [place] [address]Performed By: #### 61641-3, 2276-01 #### [facility] CLIA [id number] [address] [place] [address] [place] AMERICAEosinophils/100 WBC (Bld)5.1 %NormalBluffton Hospital on above:Order Comment: Specimen Type: BLOOD SPECIMEN Ordering Facility: [facility] Address: [address] [place], [place] [address]Performed By: #### 70167-7, 2276-01 #### [facility] CLIA [id number] [address] [place] [address] [place] OF AMERICAErythrocyte distribution width (RBC) [Ratio]12.4 %Vypeqe92.5-15.0[facility] on above:Order Comment: Specimen Type: BLOOD SPECIMEN Ordering Facility: [facility] Address: [address] [place], [place] [address]Performed By: #### 44604-0, 6-4 #### [facility] CLIA [id number] [address] [place] [address] [place] OF AMERICAHematocrit (Bld) [Volume fraction]33.2 %Low36.0-46.0[facility] on above:Order Comment: Specimen Type: BLOOD SPECIMEN Ordering Facility: [facility] Address: [address] [place], [place] [address]Performed By: #### 70976-6, 2275-4 #### [facility] CLIA [id number] [address] [place] [address] [place] AMERICAHemoglobin (Bld) [Mass/Vol] 10.9 g/dLLow11.5-15.5CUniversity [facility]als [facility] on above:Order Comment: Specimen Type: BLOOD SPECIMEN Ordering Facility: [facility] Address: [address] [place], [place] [address]Performed By: #### 24952-2, 2275-4 #### [facility] CLIA [id number] [address] [place] [address] [place] OF AMERICAImmature granulocytes (Bld) [#/Vol]10*3/uLNormal<0.10[facility] on above:Order Comment: Specimen Type: BLOOD SPECIMEN Ordering Facility: [facility] Address: [address] [place], [place] [address]Performed By: #### 97713-6, 2275-4 #### [facility] CLIA [id number] [address] [place] [address] [place] AMERICAImmature granulocytes/100 WBC (Bld)0.4 %NormalBluffton Hospital on above:Order Comment: Specimen Type: BLOOD SPECIMEN Ordering Facility: [facility] Address: [address] [place], [place] [address]Performed By: #### 88866-6, 2275- #### [facility] CLIA [id number] [address] [place] [address] [place] OF AMERICALymphocytes (Bld) [#/Vol] 1.20 10*3/uLNormal1.00-4.00[facility] on above:Order Comment: Specimen Type: BLOOD SPECIMEN Ordering Facility: [facility] Address: [address] [place], [place] [address]Performed By: #### 58953-7, 2276-01 #### [facility] CLIA [id number] [address] [place] [address] [place] AMERICALymphocytes/100 WBC (Bld) 23.3 %NormalBluffton Hospital on above:Order Comment: Specimen Type: BLOOD SPECIMEN Ordering Facility: [facility] Address: [address] [place], [place] [address]Performed By: #### 53192-1, 2276-01 #### [facility] CLIA [id number] [address] [place] [address] (RBC) [Entitic mass]33.6 meUxonpk36.0-34.0[facility] on above:Order Comment: Specimen Type: BLOOD SPECIMEN Ordering Facility: [facility] Address: [address] [place], [place] [address]Performed By: #### 62406-2, 2276-01 #### [facility] CLIA [id number] [address] [place] [address] (RBC) [Mass/Vol]32.8 g/zUGrbeqo76.5-36.0[facility] on above:Order Comment: Specimen Type: BLOOD SPECIMEN Ordering Facility: [facility] Address: [address] [place], [place] [address]Performed By: #### 96052-1, 2276-01 #### [facility] CLIA [id number] [address] [place] [address] [place] OF AMERICAMCV (RBC) [Entitic vol]102.5 pZRwcc71.0-100.0[facility] on above:Order Comment: Specimen Type: BLOOD SPECIMEN Ordering Facility: [facility] Address: [address] [place], [place] [address]Performed By: #### 56260-2, 2276-01 #### [facility] CLIA [id number] [address] [place] [address] [place] AMERICAMonocytes (Bld) [#/Vol]0.44 10*3/uLNormal<0.87[facility] on above:Order Comment: Specimen Type: BLOOD SPECIMEN Ordering Facility: [facility] Address: [address] [place], [place] [address]Performed By: #### 94097-5, 2276-01 #### [facility] CLIA [id number] [address] [place] [address] [place] AMERICAMonocytes/100 WBC (Bld)8.6 % NormalBluffton Hospital on above:Order Comment: Specimen Type: BLOOD SPECIMEN Ordering Facility: [facility] Address: [address] [place], [place] [address]Performed By: #### 52377-7, 2276-01 #### [facility] CLIA [id number] [address] [place] [address] [place] OF AMERICANeutrophils (Bld) [#/Vol] 3.20 10*3/uLNormal1.45-7.50[facility] on above:Order Comment: Specimen Type: BLOOD SPECIMEN Ordering Facility: [facility] Address: [address] [place], [place] [address]Performed By: #### 08026-4, 2276-01 #### [facility] CLIA [id number] [address] [place] [address] [place] AMERICANeutrophils/100 WBC (Bld) 62.2 %NormalBluffton Hospital on above:Order Comment: Specimen Type: BLOOD SPECIMEN Ordering Facility: [facility] Address: [address] [place], [place] [address]Performed By: #### 37107-3, 2275-4 #### [facility] CLIA [id number] [address] [place] [address] [place] OF AMERICANucleated RBC (Bld) [#/Vol] 10*3/uLNormal<0.01[facility] on above:Order Comment: Specimen Type: BLOOD SPECIMEN Ordering Facility: [facility] Address: [address] [place], [place] [address]Performed By: #### 47205-1, 2275-4 #### [facility] IA [id number] [address] [place] [address] [place] OF AMERICANucleated RBC/100 WBC (Bld) [Ratio]0.0 /100 WBCNormalCUniversity Hospitals [facility] on above:Order Comment: Specimen Type: BLOOD SPECIMEN Ordering Facility: [facility] Address: [address] [place], [place] [address]Performed By: #### 97834-0, 2276-01 #### [facility] CLIA [id number] [address] [place] [address] [place] OF AMERICAPlatelet mean volume (Bld) [Entitic vol]8.5 fLLow9.0-12.7CUniversity Hospitals [facility] on above:Order Comment: Specimen Type: BLOOD SPECIMEN Ordering Facility: [facility] Address: [address] [place], [place] [address]Performed By: #### 60357-1, 2275- #### [facility] CLIA [id number] [address] [place] [address] [place] AMERICAPlatelets (Bld) [#/Vol]266 10*3/kTXiflfx226-906DtrmzvjmnBluffton Hospital on above:Order Comment: Specimen Type: BLOOD SPECIMEN Ordering Facility: [facility] Address: [address] [place], [place] [address]Performed By: #### 76247-3, 2276-4 #### [facility] CLIA [id number] [address] [place] [address] [place] [facility] MEM[facility]IAL HOSPITALRBC (Bld) [#/Vol]3.24 10*6/uLLow3.90-5.20[facility] on above:Order Comment: Specimen Type: BLOOD SPECIMEN Ordering Facility: [facility] Address: [address] [place], [place] [address]Performed By: #### 59664-0, 2276-4 #### [facility] CLIA [id number] [address] [place], [place] [address] (Bld) [#/Vol]5.14 10*3/uLNormal3.70-11.00[facility] on above:Order Comment: Specimen Type: BLOOD SPECIMEN Ordering Facility: [facility] Address: [address] [place], [place] [address]Performed By: #### 01272-5, 2276-4 #### [facility] CLIA [id number] [address] [place] [address] OF AMERICACNOVSPon [id number] Visit (SP) Office (HEMASA) HENRIETTA GROSS ([id number]) 1940 F Date Time Provider Department 02/22/25 9:30 AM BINU, MARANDA HEMASA During your visit today, we recorded the following information about you: Temperature Pulse Respiration Blood pressure 97.5 degrees 74/minute 16/minute 153/68 Weight 68.3 kg Maranda Schmid APRN.CNP 02/22/2025 8:12 PM Signed PATIENT NAME: Henrietta Gross DATE: 02/22/2025 PRIMARY CARE PHYSICIAN: Dr. Alex Nix OTHER PHYSICIANS: Dr. Holden (pain management), Dr. Flores, Dr. Amin Portions of this encounter note have been copied from the note from 09/02/2024 and has been updated where appropriate, and reflect my current medical decision making from today. CC: This is an 85 year old female with chronic anemia, seen for scheduled follow-up. INTERIM HISTORY: Henrietta Gross returns for follow-up. She has been battling a cough. She saw her PCP and was prescribed an antibiotic. Over the weekend she had a coughing spell and has had abdominal soreness since. She denies any obvious blood loss. No black tarry stools. No abnormal bruising. She has had increased fatigue. She denies fevers, chills, night sweats and signs/symptoms of infection. MEDICATIONS: magnesium oxide (MAG-OX) 400 mg (241.3 mg magnesium) tablet Take 1 tablet by mouth once daily. HYDROcodone-Acetaminophen (NORCO) 7.5-325 mg per tablet TAKE 1 TABLET BY MOUTH 3 TIMES A DAY NEEDED FOR PAIN calcium carbonate/vitamin D3 (CALCIUM 600 + D ORAL) Take by mouth. famotidine (PEPCID) 20 mg tablet Take by mouth twice daily. amLODIPine (NORVASC) 5 mg tablet fenofibrate (LOFIBRA) 134 mg capsule Take 134 mg by mouth daily at bedtime. jjijq-1b-atl-epa-fish oil 300-1,000 mg cpDR Take by mouth. [...] seizures or tremors. PHYSICAL EXAM: Vitals: BP 153/68 Pulse 74 Temp 36.4 ?C (97.5 ?F) (Temporal) Resp 16 Wt 68.3 kg (150 lb 9.2 oz) SpO2 95% BMI 29.41 kg/m? ECOG 1 Exam limited to gross [...] petechiae. LABORATORY DATA: Hemoglobin (g/dL) Date Value 02/22/2025 10.9 12/13/2021 11.6 Hematocrit (%) Date Value 02/22/2025 33.2 12/13/2021 37.0 WBC (k/uL) Date Value 02/22/2025 5.14 12/13/2021 4.90 Platelet Count (k/uL) Date Value 02/22/2025 266 12/13/2021 213 ASSESSMENT/PLAN: 1. 285.9 Anemia (primary diagnosis) Severe anemia initially discovered February 2007 (hemoglobin 6.7). Bone marrow biopsy April 2007 nondiagnostic. Etiology multifactorial - in part due to iron deficiency from GI bleeding, in part due to CRI. Shortly after initial presentation the patient received multiple blood transfusions, iron infusions, and EPO injections with resolution of her anemia. She developed recurrent anemia January 2019 due to an upper GI bleed from peptic ulcer disease. With appropriate management her anemia initially returned to baselin (more content not included)...NormalLima City HospitalPNon [id number] (NCCAP) HENRIETTA GROSS ([id number]) 1940 F Date Time Provider Department 02/22/25 MARANDA SCHMID During your visit today, we recorded the following information about you: Liliana Lovell 02/22/2025 10:08 AM Signed Pool Escobedo RN 02/24/2025 8:04 AM Signed Please review labs and verify, no need for iron? DELMA Crouch Holly, APRN.CNP 02/24/2025 3:42 PM Signed Please notify patient that her iron studies are normal and there is no additional need for IV iron at this time. In order to reinitiate the Aranesp her hemoglobin needs to be 10.9 so we will not be able to give Aranesp unless hemoglobin continues to drop. I am comfortable monitoring this for now. Please cancel next week's Aranesp injection and 3 week follow-up. At this time, I would suggest we repeat labs in 6 weeks and schedule her for a follow-up in 12 weeks. Thank you, Maranda Schmid APRN.Pool Boyd RN 02/24/2025 3:46 PM Signed Pt aware and agreeable to plan of care. She denies any questions, need or concerns at this time. PSS: Please call pt for scheduling needs, per DELMA Mckeon Brittany 02/25/2025 10:24 AM Signed Call placed to patient - appointments cancelled and rescheduled to lab, 04/06 and lab and RV on 05/16. Patient has been notified of all revised appointments. Thanks! Ramirez Rincon Allergies As of Date: 02/22/2025 Noted Allergy Reaction SULFA (SULFONAMIDE ANTIBIOTICS) 10/01/2012 16 - Unknown VENOFER (IRON SUCROSE) 10/01/2012 16 - Unknown Date Reviewed: 02/22/2025 Reviewed by: Maranda Schmid APRN.COMPUTER NUMERIC CONTROL SETTER - Fully Assessed Reason for Visit: Results [95] Prescriptions as of 02/25/2025 - magnesium oxide (MAG-OX) 400 mg (241.3 mg magnesium) tablet Take 1 tablet by mouth once daily. - HYDROcodone-Acetaminophen (NORCO) 7.5-325 mg per tablet TAKE 1 TABLET BY MOUTH 3 TIMES A DAY NEEDED FOR PAIN - calcium carbonate/vitamin D3 (CALCIUM 600 + D ORAL) Take by mouth. - famotidine (PEPCID) 20 mg tablet Take by mouth twice daily. - amLODIPine (NORVASC) 5 mg tablet - fenofibrate (LOFIBRA) 134 mg capsule Take 134 mg by mouth daily at bedtime. - ecmso-4w-cdu-epa-fish oil 300-1,000 mg cpDR Take by mouth. - carvedilol (COREG) 6.25 mg tablet Take 1 tablet by mouth twice daily. - gabapentin (NEURONTIN) 100 mg capsule Take 300 mg by mouth three times daily. Problem List As Of Date 02/22/2025 Noted Resolved Anemia [D64.9] 10/01/2012 Chronic renal [...] failure, stage 3b (HCC)*10/30/2021 Encounter Status:Closed by RAMIREZ RINCON on 02/25/25NormalCAvita Health System Galion HospitalComprehensive metabolic 2000 panelon [id number] [Mass/Vol]4.2 g/dLNormal3.9-4.9CUniversity [facility]als [facility] on above:Order Comment: Specimen Type: BLOOD SPECIMEN Ordering Facility: [facility] Address: [address] [place], [place] [address]Performed By: #### 00803-6, 2275- #### [facility] CLIA [id number] [address] [place], [place] [address] [place] OF AMERICAALP [Catalytic activity/Vol] 39 U/MGqmjig35-247AjpunvbrrBluffton Hospital on above:Order Comment: Specimen Type: BLOOD SPECIMEN Ordering Facility: [facility] Address: [address] [place], [place] [address]Performed By: #### 67975-3, 2275- #### [facility] CLIA [id number] [address] [place], [place] [address] [place] AMERICAALT [Catalytic activity/Vol] 28 U/LNormal7-38[facility] on above:Order Comment: Specimen Type: BLOOD SPECIMEN Ordering Facility: [facility] Address: [address] [place], [place] [address]Performed By: #### 53604-8, 2276-01 #### [facility] CLIA [id number] [address] [place], [place] [address] [place] OF AMERICAAnion gap [Moles/Vol]10 mmol/LNormal8-15[facility] on above:Order Comment: Specimen Type: BLOOD SPECIMEN Ordering Facility: [facility] Address: [address] [place], [place] [address]Performed By: #### 31634-1, 2275-4 #### [facility] CLIA [id number] [address] [place], [place] [address] [place] OF AMERICAAST [Catalytic activity/Vol] 52 U/IHdtt49-39BxxecpediBluffton Hospital on above:Order Comment: Specimen Type: BLOOD SPECIMEN Ordering Facility: [facility] Address: [address] [place], [place] [address]Performed By: #### 69173-1, 2276-01 #### [facility] CLIA [id number] [address] [place] [address] [place] AMERICABilirubin [Mass/Vol]0.3 mg/dLNormal0.2-1.3CUniversity Hospitals [facility] on above:Order Comment: Specimen Type: BLOOD SPECIMEN Ordering Facility: [facility] Address: [address] [place], [place] [address]Performed By: #### 56100-9, 2276-01 #### [facility] CLIA [id number] [address] [place] [address] [place] AMERICACalcium [Mass/Vol]10.2 mg/dL Normal8.5-10.2CUniversity Hospitals [facility] on above:Order Comment: Specimen Type: BLOOD SPECIMEN Ordering Facility: [facility] Address: [address] [place], [place] [address]Performed By: #### 19821-5, 2276-01 #### [facility] CLIA [id number] [address] [place] [address] [place] OF AMERICAChloride [Moles/Vol]98 mmol/GSxowgh79-023AwobvrkebBluffton Hospital on above:Order Comment: Specimen Type: BLOOD SPECIMEN Ordering Facility: [facility] Address: [address] [place], [place] [address]Performed By: #### 50128-2, 2276-01 #### [facility] CLIA [id number] [address] [place] [address] [place] AMERICACO2 [Moles/Vol]27 mmol/L Ilwbth69-61QjluaryleBluffton Hospital on above:Order Comment: Specimen Type: BLOOD SPECIMEN Ordering Facility: [facility] Address: [address] [place], [place] [address]Performed By: #### 01145-3, 2275-4 #### [facility] IA [id number] [address] [place] [address] [place] AMERICACreatinine [Mass/Vol]1.29 mg/dLHigh0.58-0.96[facility] on above:Order Comment: Specimen Type: BLOOD SPECIMEN Ordering Facility: [facility] Address: [address] [place], [place] [address]Performed By: #### 87152-2, 4 #### [facility] IA [id number] [address] [place] [address] [place] AMERICACreatinine and Glomerular filtration rate.predicted panel (S/P/Bld)41 mL/min/1.73m???Low>=60[facility] on above:Order Comment: Specimen Type: BLOOD SPECIMEN Ordering Facility: [facility] Address: [address] [place], [place] [address]Result Comment: Estimated Glomerular Filtration Rate (eGFR) is calculated using the 2020 CKD-EPI cre atinine equation. This equation utilizes serum creatinine, sex, and age as parameters. The creatinine assay has traceable calibration to isotope dilution- mass spectrometry. Refer to KDIGO guidelines for clinical interpretation. In patients with unstable renal function, e.g. those with acute kidney injury, the eGFR may not accurately reflect actual GFR.Performed By: #### 01053-2, 2276-01 #### [facility] CLIA [id number] [address] [place] [address] [place] AMERICAGlucose [Mass/Vol]323 mg/dL Rcnq86-20CyaizopytBluffton Hospital on above:Order Comment: Specimen Type: BLOOD SPECIMEN Ordering Facility: [facility] Address: [address] [place], [place] [address]Result Comment: The [place] Diabetes Association (ADA) provides guidance for cutoff [...] Standards of Medical Care in Diabetes 2016, [place] [employer]. Diabetes Care. 2016.39(Suppl 1).Performed By: #### 09337-6, 2276-01 #### [facility] CLIA [id number] [address] [place] [address] [place] AMERICAPotassium [Moles/Vol]4.8 mmol/LNormal3.7-5.1CUniversity Hospitals [facility] on above:Order Comment: Specimen Type: BLOOD SPECIMEN Ordering Facility: [facility] Address: [address] [place], [place] [address]Performed By: #### 49348-0, 2276-01 #### [facility] CLIA [id number] [address] [place] [address] [place] AMERICAProtein [Mass/Vol]7.0 g/dL Normal6.3-8.0[facility] on above:Order Comment: Specimen Type: BLOOD SPECIMEN Ordering Facility: [facility] Address: [address] [place], [place] [address]Performed By: #### 95591-0, 2276-01 #### [facility] CLIA [id number] [address] [place] [address] [place] AMERICASodium [Moles/Vol]135 mmol/L Vdc022-669AklffpiciBluffton Hospital on above:Order Comment: Specimen Type: BLOOD SPECIMEN Ordering Facility: [facility] Address: [address] [place], [place] [address]Performed By: #### 30224-1, 2276-01 #### [facility] CLIA [id number] [address] [place] [address] [place] AMERICAUrea nitrogen [Mass/Vol]29 mg/dLHigh7-21[facility] on above:Order Comment: Specimen Type: BLOOD SPECIMEN Ordering Facility: [facility] Address: [address] [place], [place] [address]Performed By: #### 02774-1, 6-4 #### [facility] CLIA [id number] [address] [place] [address] [place] AMERICAFerritin SerPl-mCncon 48-53-7866Vosifode [Mass/Vol]353.0 ng/mSDgfq67.7-205.1CAv[facility] Comment on above:Order Comment: Specimen Type: BLOOD SPECIMEN Ordering Facility: [facility] Address: [address] [place], [place] [address]Performed By: #### 95967-6, 2275-4 #### [facility] CLIA [id number] [address] [place] [address] [place] OF AMERICAIron and Iron binding capacity panelon 57-17-3428Fxnw [Mass/Vol]71 ug/sGAznpng76-826MpfktlmgeBluffton Hospital on above:Order Comment: Specimen Type: BLOOD SPECIMEN Ordering Facility: [facility] Address: [address] [place], [place] [address]Performed By: #### 63194-5, 2275-4 #### [facility] CLIA [id number] [address] [place] [address] [place] AMERICAIron binding capacity [Mass/Vol]346 ug/eSMtlctn209-442XpnpjslbrBluffton Hospital on above:Order Comment: Specimen Type: BLOOD SPECIMEN Ordering Facility: [facility] Address: [address] [place], [place] [address]Performed By: #### 15920-9, 2275-4 #### [facility] CLIA [id number] [address] [place] [address] [place] AMERICAIron/TIBC [Molar ratio]20.5 %Zhvpph53.0-57.0German HospitalComment on above:Order Comment: Specimen Type: BLOOD SPECIMEN Ordering Facility: [facility] Address: [address] [place], [place] [address]Performed By: #### 53186-4, 2276-4 #### [facility] CLIA [id number] [address] [place] [address] [place] [address] [place] OF AMERICASurgical Pathology Reporton [id number] Pathology Report[address] [place] [address]- Surgical Pathology Report Collected Date/Time: 01/28/2025 13:00 EDT Pathologist: Jeremy MCLEAN PhD, Ashley Brar Received Date/Time: 01/30/2025 18:00 EDT Belinda Marks DO, DO, Jonathan 07 Surgical Pathology Report - 02/04/2025 09:30 EDT - Auth (Verified) Final Diagnosis LESION, RIGHT LOWER EYELID, EXCISION: - BASAL CELL CARCINOMA, MICRONODULAR. - SURGICAL MARGIN NEGATIVE FOR MALIGNANCY. (Electronic Signature) Ashley Luna MD PhD 02/04/2025 09:30 Diagnosis Comment Tumor cells extend to reticular dermis. No lymphovascular invasion identified. Clinical Information Suspicious lesion right lower lid, increased growth/ulceration Pre-Op Diagnosis: Suspicious lesion right lower lid, increased growth/ulceration Procedure: Excision of lesion, right lower lid Post-Op Diagnosis: _ Specimen(s) Received Right lower lid lesion Gross Description Received in formalin labeled with patient name, number, and right lower eyelid is a segment of ron soft tissue measuring 0.5 x 0.4 cm with a maximum thickness of 0.2 cm. Per surgeon, stitch is attached to designate the superior margin. The surface has a round, slightly raised lesion measuring 0.3 x 0.3 cm. At the center of the lesion there is a slightly indented ron area measuring 0.1 x 0.1 cm. Superior margin is inked blue, the assumed inferior margin green. The assumed lateral margin is inked yellow, the assumed medial margin red, and the deep margin black. Bisected and entirely submitted in one cassette. (DC) DC:MCA Microscopic Description Microscopic examination performed unless gross only specified. This report was transcribed using voice recognition technology and might contain unintended computerized marriage and family counselor errors.NormalFisher Sinai Hospital Of BaltimoreComment on above:Performed By: #### [id number] #### [facility] [address] [place], [place] [address]Qnidciw mean value [Mass/volume] in Blood Estimated from glycated hemoglobinon 09-88-0798Syfzuvj glucose Estimated from glycated hemoglobin (Bld) [Mass/Vol]Glucose mean value [Mass/volume] in Blood Estimated from glycated hemoglobinOhiohealth Van Wert HospitalHemoglobin A1c percentageon 90-90-6467VtD5i (Bld) [Mass fraction]Hemoglobin A1c percentageHigh 4.5-6.2FKettering HealthComment on above:ADA RECOMMENDED LIMIT 4.0 - 6.0ADA THERAPEUTIC TARGET < 7.0ACTION SUGGESTED> 7.0Basic metabolic 2000 panelon 30-09-4165Jhkzk gap [Moles/Vol]9 mmol/LNormal8-15German HospitalComment on above:Order Comment: Specimen Type: BLOOD SPECIMEN Ordering Facility: [facility] Address: [address] [place], [place] [address]Performed By: #### 70921-0, 2276-4 #### [facility] CLIA [id number] [address] [place] [address] [place] OF AMERICACalcium [Mass/Vol]10.4 mg/dL High8.5-10.2ClevelNovant Health Rehabilitation HospitalCommclaren northern [place] on above:Order Comment: Specimen Type: BLOOD SPECIMEN Ordering Facility: [facility] Address: [address] [place], [place] [address]Performed By: #### 41519-4, 6-4 #### [facility] CLIA [id number] [address] [place] [address] [place] OF AMERICAChloride [Moles/Vol]101 mmol/UDacdwn12-926DuekkqwrcBluffton Hospital on above:Order Comment: Specimen Type: BLOOD SPECIMEN Ordering Facility: [facility] Address: [address] [place], [place] [address]Performed By: #### 61786-8, 6-4 #### [facility] CLIA [id number] [address] [place] [address] [place] OF AMERICACO2 [Moles/Vol]25 mmol/L Dqnads51-93RcjjjsxmcBluffton Hospital on above:Order Comment: Specimen Type: BLOOD SPECIMEN Ordering Facility: [facility] Address: [address] [place], [place] [address]Performed By: #### 03853-3, 6-4 #### [facility] CLIA [id number] [address] [place] [address] [place] OF AMERICACreatinine [Mass/Vol]1.40 mg/dLHigh0.58-0.96[facility] on above:Order Comment: Specimen Type: BLOOD SPECIMEN Ordering Facility: [facility] Address: [address] [place], [place] [address]Performed By: #### 49161-5, 2275-4 #### [facility] IA [id number] [address] [place] [address] [place] OF AMERICACreatinine and Glomerular filtration rate.predicted panel (S/P/Bld)37 mL/min/1.73m???Low>=60[facility] on above:Order Comment: Specimen Type: BLOOD SPECIMEN Ordering Facility: [facility] Address: [address] [place], [place] [address]Result Comment: Estimated Glomerular Filtration Rate (eGFR) is calculated using the 2020 CKD-EPI cre atinine equation. This equation utilizes serum creatinine, sex, and age as parameters. The creatinine assay has traceable calibration to isotope dilution- mass spectrometry. Refer to KDIGO guidelines for clinical interpretation. In patients with unstable renal function, e.g. those with acute kidney injury, the eGFR may not accurately reflect actual GFR.Performed By: #### 30449-0, 6-4 #### [facility] CLIA [id number] [address] [place] [address] [place] OF AMERICAGlucose [Mass/Vol]267 mg/dL Ssbo72-30GfcnbcikdBluffton Hospital on above:Order Comment: Specimen Type: BLOOD SPECIMEN Ordering Facility: [facility] Address: [address] [place], [place] [address]Result Comment: The [place] Diabetes Association (ADA) provides guidance for cutoff [...] Standards of Medical Care in Diabetes 2016, [place] Diabetes Association. Diabetes Care. 2016.39(Suppl 1).Performed By: #### 87087-9, 2275- #### [facility] CLIA [id number] [address] [place] [address] [place] OF AMERICAPotassium [Moles/Vol]4.5 mmol/LNormal3.7-5.1CUniversity Hospitals Geaug[facility] on above:Order Comment: Specimen Type: BLOOD SPECIMEN Ordering Facility: [facility] Address: [address] [place], [place] [address]Performed By: #### 99640-7, 2275- #### [facility] CLIA [id number] [address] [place] [address] [place] OF AMERICASodium [Moles/Vol]135 mmol/L Ngw216-318MsdpjnhzzBluffton Hospital on above:Order Comment: Specimen Type: BLOOD SPECIMEN Ordering Facility: [facility] Address: [address] [place], [place] [address]Performed By: #### 28284-4, 2275-4 #### [facility] CLIA [id number] [address] [place] [address] OF AMERICAUrea nitrogen [Mass/Vol]33 mg/dLHigh7-21[facility] on above:Order Comment: Specimen Type: BLOOD SPECIMEN Ordering Facility: [facility] Address: [address] [place], [place] [address]Performed By: #### 50451-9, 2276-4 #### [facility] CLIA [id number] [address] [place], [place] [address]K [address]CB W Auto Differential panel (Bld)on 29-58-0634Qpksksnng (Bld) [#/Vol]0.03 10*3/uLNormal<0.11CUniversity Hospitals Geaug[facility] Center on above:Order Comment: Specimen Type: BLOOD SPECIMEN Ordering Facility: [facility] Address: [address] [place], [place] [address]Performed By: #### 24613-5 #### [facility] CLIA [id number] [address] [place] [address] 23290Fggzattar/100 WBC (Bld)0.5 %NormalGerman Hospital Comment on above:Order Comment: Specimen Type: BLOOD SPECIMEN Ordering Facility: [facility] Address: [address] [place], [place] [address]Performed By: #### 75000-8 #### [facility] CLIA [id number] [address] [place] [address] 66093Mieocczwkkvx cell count method Nom (Bld)AutoNormalCUniversity Hospitals Geauga Medical Center on above:Order Comment: Specimen Type: BLOOD SPECIMEN Ordering Facility: [facility] Address: [address] [place], [place] [address]Performed By: #### 23488-1 #### [facility] CLIA [id number] [address] [place] [address] 63948Gzxhwrxvpcl (Bld) [#/Vol]0.17 10*3/uLNormal<0.46[facility] on above:Order Comment: Specimen Type: BLOOD SPECIMEN Ordering Facility: [facility] Address: [address] [place], [place] [address]Performed By: #### 46032-1 #### [facility] CLIA [id number] [address] [place], [place] [address]Nrtuwystsvf/100 WBC (Bld)2.9 %NormalGerman Hospital Comment on above:Order Comment: Specimen Type: BLOOD SPECIMEN Ordering Facility: [facility] Address: [address] [place], [place] [address]Performed By: #### 09079-6 #### [facility] CLIA [id number] [address] [place], [place] [address]Jobtyumhrdl distribution width (RBC) [Ratio]13.2 %Normal 11.5-15.0[facility] on above:Order Comment: Specimen Type: BLOOD SPECIMEN Ordering Facility: [facility] Address: [address] [place], [place] [address]Performed By: #### 56895-8 #### [facility] CLIA [id number] [address] [place] [address] 08264Pzmbfvowge (Bld) [Volume fraction]34.3 %Low36.0-46.0German HospitalComment on above:Order Comment: Specimen Type: BLOOD SPECIMEN Ordering Facility: [facility] Address: [address] [place], [place] [address]Performed By: #### 32561-8 #### [facility] CLIA [id number] [address] [place] [address] 49616Svmuifjkxu (Bld) [Mass/Vol]11.5 g/ySNoaeie65.5-15.5CUniversity Hospitals Geaug[facility] Center on above:Order Comment: Specimen Type: BLOOD SPECIMEN Ordering Facility: [facility] Address: [address] [place], [place] [address]Performed By: #### 78426-3 #### [facility] CLIA [id number] [address] [place] [address] 21990Nguoikde granulocytes (Bld) [#/Vol]10*3/uLNormal<0.10[facility] on above:Order Comment: Specimen Type: BLOOD SPECIMEN Ordering Facility: [facility] Address: [address] [place], [place] [address]Performed By: #### 10360-0 #### [facility] CLIA [id number] [address] [place] [address] 22331Brdploke granulocytes/100 WBC (Bld)0.3 %NormalBluffton Hospital on above:Order Comment: Specimen Type: BLOOD SPECIMEN Ordering Facility: [facility] Address: [address] [place], [place] [address]Performed By: #### 28107-6 #### [facility] CLIA [id number] [address] [place] [address] 47414Dgtadsyuols (Bld) [#/Vol]1.33 10*3/uLNormal1.00-4.00[facility] on above:Order Comment: Specimen Type: BLOOD SPECIMEN Ordering Facility: [facility] Address: [address] [place], [place] [address]Performed By: #### 32702-1 #### [facility] CLIA [id number] [address] [place] [address] 59801Xndhzhbjfab/100 WBC (Bld)22.6 %NormalBluffton Hospital on above:Order Comment: Specimen Type: BLOOD SPECIMEN Ordering Facility: [facility] Address: [address] [place], [place] [address]Performed By: #### 96263-7 #### [facility] CLIA [id number] [address] [place] [address] 50918MLK (RBC) [Entitic mass]34.4 ldOfnm89.0-34.0[facility] on above:Order Comment: Specimen Type: BLOOD SPECIMEN Ordering Facility: [facility] Address: [address] [place], [place] [address]Performed By: #### 03025-9 #### [facility] CLIA [id number] [address] [place], [place] [address]VZQC (RBC) [Mass/Vol]33.5 g/oSWulmix17.5-36.0[facility] on above:Order Comment: Specimen Type: BLOOD SPECIMEN Ordering Facility: [facility] Address: [address] [place], [place] [address]Performed By: #### 28049-4 #### [facility] CLIA [id number] [address] [place], [place] [address]HFH (RBC) [Entitic vol]102.7 qIMmpg48.0-100.0[facility] on above:Order Comment: Specimen Type: BLOOD SPECIMEN Ordering Facility: [facility] Address: [address] [place], [place] [address]Performed By: #### 30335-7 #### [facility] CLIA [id number] [address] [place] [address] 58[address]Cnbkmgeld (Bld) [#/Vol]0.46 10*3/uLNormal<0.87[facility] on above:Order Comment: Specimen Type: BLOOD SPECIMEN Ordering Facility: [facility] Address: [address] [place], [place] [address]Performed By: #### 96289-3 #### [facility] CLIA [id number] [address] [place] [address] 26883Jtqhhdwry/100 WBC (Bld)7.8 %NormalGerman Hospital Comment on above:Order Comment: Specimen Type: BLOOD SPECIMEN Ordering Facility: [facility] Address: [address] [place], [place] [address]Performed By: #### 97822-8 #### [facility] CLIA [id number] [address] [place] [address] 92827Teyknvrxcnm (Bld) [#/Vol]3.88 10*3/uLNormal1.45-7.50[facility] on above:Order Comment: Specimen Type: BLOOD SPECIMEN Ordering Facility: [facility] Address: [address] [place], [place] [address]Performed By: #### 24212-0 #### [facility] CLIA [id number] [address] [place] [address] 55487Lyzqixooqct/100 WBC (Bld)65.9 %NormalBluffton Hospital on above:Order Comment: Specimen Type: BLOOD SPECIMEN Ordering Facility: [facility] Address: [address] [place], [place] [address]Performed By: #### 54923-3 #### [facility] CLIA [id number] [address] [place] [address] 76874Qcnezmgug RBC (Bld) [#/Vol]10*3/uLNormal<0.01[facility] on above:Order Comment: Specimen Type: BLOOD SPECIMEN Ordering Facility: [facility] Address: [address] [place], [place] [address]Performed By: #### 45475-9 #### [facility] CLIA [id number] [address] [place] [address] 91603Hrfmovoho RBC/100 WBC (Bld) [Ratio]0.0 /100 WBCNormalCUniversity Hospitals Geauga [facility] on above:Order Comment: Specimen Type: BLOOD SPECIMEN Ordering Facility: [facility] Address: [address] [place], [place] [address]Performed By: #### 88629-6 #### [facility] CLIA [id number] [address] [place] [address] 74523Wwwmpegx mean volume (Bld) [Entitic vol]9.1 fLNormal9.0-12.7 [facility] on above:Order Comment: Specimen Type: BLOOD SPECIMEN Ordering Facility: [facility] Address: [address] [place], [place] [address]Performed By: #### 86128-5 #### [facility] CLIA [id number] [address] [place] [address] 57329Ryjiwdlip (Bld) [#/Vol]216 10*3/hAJiqxry968-719RzrwhpzvxBluffton Hospital on above:Order Comment: Specimen Type: BLOOD SPECIMEN Ordering Facility: [facility] Address: [address] [place], [place] [address]Performed By: #### 76113-1 #### [facility] CLIA [id number] [address] [place], [place] [address]ANI (Bld) [#/Vol]3.34 10*6/uLLow3.90-5.20[facility] on above:Order Comment: Specimen Type: BLOOD SPECIMEN Ordering Facility: [facility] Address: [address] [place], [place] [address]Performed By: #### 31592-3 #### [facility] CLIA [id number] [address] [place], [place] [address]RDZ (Bld) [#/Vol]5.89 10*3/uLNormal3.70-11.00[facility] on above:Order Comment: Specimen Type: BLOOD SPECIMEN Ordering Facility: [facility] Address: [address] [place], [place] [address]Performed By: #### 65219-1 #### [facility] CLIA [id number] [address] [place] [address] 688[address]FIXMXWmw 22-73-6618YMLRRJHfiqy (SP) Office ([place]) HENRIETTA GROSS ([id number]) 1940 F Date Time Provider Department 09/02/24 3:00 PM MARANDA SCHMID During your visit today, we recorded the following information about you: Temperature Pulse Respiration Blood pressure 97.6 degrees 86/minute 18/minute 130/88 Weight 69.5 kg Maranda Schmid APRN.KATIE 09/02/2024 4:46 PM Signed PATIENT NAME: Henrietta Gross DATE: 09/02/2024 PRIMARY CARE PHYSICIAN: Dr. Alex Nix OTHER PHYSICIANS: Dr. Holden (pain management), Dr. Flores, Dr. Amin Portions of this encounter note have been copied from the note from 02/26/2024 and has been updated where appropriate, and reflect my current medical decision making from today. CC: This is an 84 year old female with chronic anemia, seen for scheduled follow-up. INTERIM HISTORY: Henrietta Gross returns for scheduled follow-up. Since her last visit there has been no significant medical changes. She states that she is feeling good. She denies any bleeding or abnormal bruising. No fevers, chills, night sweats or signs/symptoms of infection. She denies cough, shortness of breath and other pulmonary complaints. MEDICATIONS: magnesium oxide (MAG-OX) 400 mg (241.3 mg magnesium) tablet Take 1 tablet by mouth once daily. HYDROcodone-Acetaminophen (NORCO) 7.5-325 mg per tablet TAKE 1 TABLET BY MOUTH 3 TIMES A DAY NEEDED FOR PAIN calcium carbonate/vitamin D3 (CALCIUM 600 + D ORAL) Take by mouth. famotidine (PEPCID) 20 mg tablet Take by mouth twice daily. amLODIPine (NORVASC) 5 mg tablet fenofibrate (LOFIBRA) 134 mg capsule Take 134 mg by mouth daily at bedtime. rwkqp-8p-vdz-epa-fish oil 300-1,000 mg cpDR Take by mouth. [...] seizures or tremors. PHYSICAL EXAM: Vitals: BP 130/88 Pulse 86 Temp 36.4 ?C (97.6 ?F) (Temporal) Resp 18 Wt 69.5 kg (153 lb 3.5 oz) SpO2 95% BMI 29.92 kg/m? ECOG 1 Exam limited to gross [...] petechiae. LABORATORY DATA: Hemoglobin (g/dL) Date Value 09/02/2024 11.5 12/13/2021 11.6 Hematocrit (%) Date Value 09/02/2024 34.3 12/13/2021 37.0 WBC (k/uL) Date Value 09/02/2024 5.89 12/13/2021 4.90 Platelet Count (k/uL) Date Value 09/02/2024 216 12/13/2021 213 ASSESSMENT/PLAN: 1. 285.9 Anemia (primary diagnosis) Severe anemia initially discovered February 2007 (hemoglobin 6.7). Bone marrow biopsy April 2007 nondiagnostic. Etiology multifactorial - in part due to iron deficiency from GI bleeding, in part due to CRI. Shortly after initial presentation the patient received multiple blood transfusions, iron infusions, and EPO injections with resolution of her anemia. She developed recurrent anemia January 2019 due to an upper GI bleed from peptic ulcer disease. With appropriate management her anemia initially returned to baseline. However, since 2020 her anemia worsened as (more content not included)...NormalTrinity Health System East Campuson 29-16-1397QHVVDancawsls ([place]) HENRIETTA GROSS ([id number]) 1940 F Date Time Provider Department 08/24/24 MARANDA SCHMID During your visit today, we recorded the following information about you: Val Buchanan MA 08/24/2024 11:27 AM Signed Patient coming in 09/02/24 for follow up with labs. Please add lab orders. Thanks. Val Buchanan MA Allergies As of Date: 08/24/2024 Noted Allergy Reaction SULFA (SULFONAMIDE ANTIBIOTICS) 10/01/2012 16 - Unknown VENOFER (IRON SUCROSE) 10/01/2012 16 - Unknown Date Reviewed: 02/26/2024 Reviewed by: Marleni Trotter MA - Fully Assessed Reason for Visit: Lab Orders [3436] Primary Visit Diagnosis:Anemia of chronic renal failure, stage 3b (HCC) (HCC) [N18.32, D63.1] Order(s):COMPLETE BLOOD COUNT AND DIFFERENTIAL [SQCBCDIF] Order #: [id number] FUTURE BASIC METABOLIC PANEL [SQBMP] Order #: [id number] FUTURE Prescriptions as of 08/24/2024 - HYDROcodone-Acetaminophen (NORCO) 7.5-325 mg per tablet TAKE 1 TABLET BY MOUTH 3 TIMES A DAY NEEDED FOR PAIN - calcium carbonate/vitamin D3 (CALCIUM 600 + D ORAL) Take by mouth. - famotidine (PEPCID) 20 mg tablet Take by mouth twice daily. - amLODIPine (NORVASC) 5 mg tablet - fenofibrate (LOFIBRA) 134 mg capsule Take 134 mg by mouth daily at bedtime. - axxzz-3f-rpb-epa-fish oil 300-1,000 mg cpDR Take by mouth. - carvedilol (COREG) 6.25 mg tablet Take 1 tablet by mouth twice daily. - gabapentin (NEURONTIN) 100 mg capsule Take 300 mg by mouth three times daily. Problem List As Of Date 08/24/2024 Noted Resolved Anemia [D64.9] 10/01/2012 Chronic renal [...] (HCC)*10/30/2021 Encounter Status:Closed by ATIF YOUSIF on 08/24/24NoMercy Health Springfield Regional Medical CenterErythrocyte distribution width Auto (RBC) [Ratio]on 07-06-2024 Erythrocyte distribution width (RBC) [Ratio]13.1 %11.0-15.0[facility]ert HospitalEstimated glomerular filtration rate (GFR) non- Americanon 99-01-6490FSM/1.73 sq M.predicted among non-blacks MDRD (S/P/Bld) [Vol rate/Area]32 mL/min/{1.73_m2}Low>=60[facility] HospitalGlucose mean value [Mass/volume] in Blood Estimated from glycated hemoglobinon 43-74-8346Npasicw glucose Estimated from glycated hemoglobin (Bld) [Mass/Vol]169 mg/dLOhiohealth Van Wert HospitalHematocrit Auto (Bld) [Volume fraction]on 50-25-6542Qdzlmzkcqk (Bld) [Volume fraction]35.6 %Low36.0-48.0[facility] HospitalHemoglobin [Mass/volume] in Bloodon 23-13-0944Mmrqvqzfiv (Bld) [Mass/Vol]11.4 g/dLLow12.0-16.0[facility] HospitalLaboratory - Chemistry and Chemistry - challengeon 81-98-4904Uewcpibna Ql (U)NegativeNEGATIVE [facility] HospitalGlucose (U) [Mass/Vol]250 mg/dLAbnormalNEGATIVE [facility] HospitalKetones Ql (U)NegativeNEGATIVEOhiohealth Van Wert HospitalpH (U)6.0 [pH]5.0-9.0[facility] Specific gravity (U) [Rel density]1.0201.005-1.025Ohio[facility] Wert HospitalUrobilinogen Qn (U)0.2 {Jaquan'U}/dL0.2-1.0[facility] HospitalAlbumin [Mass/Vol]3.3 g/dLLow3.4-5.0[facility] Calcium [Mass/Vol]9.3 mg/dL8.5-10.1FKettering HealthChloride [Moles/Vol]103 mmol/W85-543YsfhnpygcOhiohealth Van Wert HospitalCO2 [Moles/Vol]29.9 mmol/L21.0-32.0[facility] HospitalCreatinine [Mass/Vol]1.55 mg/dL High0.55-1.02[facility] HospitalGFR/1.73 sq M.predicted MDRD (S/P/Bld) [Vol rate/Area]39 mL/min/{1.73_m2}Low>=60[facility] HospitalGlucose [Mass/Vol]169 mg/tZThct73-682BptfodtzuOhiohealth Van Wert Hospital Magnesium [Mass/Vol]1.7 mg/dLLow1.8-2.4FKettering Health Potassium [Moles/Vol]4.3 mmol/L3.5-5.1FOhioHealth Dublin Methodist Hospitalodium [Moles/Vol]138 mmol/T637-187FvuedomalOhiohealth Van Wert HospitalUrate [Mass/Vol]6.8 mg/dLHigh2.6-6.0[facility] HospitalUrea nitrogen [Mass/Vol]38.0 mg/dLHigh7.0-18.0[facility] HospitalUrea nitrogen/Creatinine [Mass ratio]24.5 mg/mgOhiohealth Van Wert HospitalLaboratory - Hematology and Cell countson 60-62-7875ZfP1x (Bld) [Mass fraction]7.5 %High4.5-6.2FKettering HealthComment on above:ADA RECOMMENDED LIMIT 4.0 - 6.0ADA THERAPEUTIC TARGET < 7.0ACTION SUGGESTED> 7.0Laboratory - Specimen informationon 15-09-2340Ceietlktgs (U)CLOUDYAbnormalCLEARFKettering Health Color (U)LT. YELLOWYELLOWOhiohealth Van Wert HospitalLaboratory - Urinalysison 01-24-4892Saouofdyk esterase Test strip Ql (U)LARGEAbnormalNEGATIVE [facility] HospitalMucus Ql (Urine sed)NONE SEENNONE [facility]erry HospitalNitrite Ql (U)NegativeNEGATIVEOhiohealth Van Wert HospitalProtein Ql (U)NegativeNEG/TRACEOhiohealth Van Wert HospitalLeukocytes [#/volume] corrected for nucleated erythrocytes in Blood by Automated counon 96-48-7849YXE corrected for nucl RBC Auto (Bld) [#/Vol]4.3 10 3/uL4.0-11.0 [facility] HospitalH Auto (RBC) [Entitic mass]on 43-12-6984CUJ (RBC) [Entitic mass]33.4 pg26.7-34.0[facility]ert HospitalMCHC Auto (RBC) [Mass/Vol]on 71-83-2345QXCH (RBC) [Mass/Vol]32.0 g/dL29.9-35.2FKettering HealthMCV Auto (RBC) [Entitic vol]on 44-97-4585EPK (RBC) [Entitic vol]104.4 oPPmhu02.0-99.0[facility] HospitalNo Panel Informationon 83-11-1448Evpdn BacteriaLARGE #/HPFAbnormalNONE [facility] HospitalUrine Occult BloodNegativeNEGAkron Children's HospitalUrine Other CastsNONE SEEN #/LPFNONE [facility] HospitalUrine Other CrystalsNone Seen #/HPFNone [facility] HospitalUrine RBC0-2 #/HPF0-2FKettering HealthUrine Squamous Epithelial CellsFEW #/LPFAbnormalNONE/RAREOhiohealth Van Wert HospitalUrine XVZ11-90 #/HPFAbnormalNONE SEENOhiohealth Van Wert Hospital25- Hydroxy Vitamin D Total35.9 ng/mLOhiohealth Van Wert HospitalComment on above:<20 ng/mL Vit D gizpkzpij60-<30 ng/mL Vit D apnrciaelkjs50-543 ng/mL Vit D sufficient>100 ng/mL Potential ToxicityParathyroid Hormone (Intact)31 pg/mL15-65 [facility] Wert HospitalComment on above:Performed at: [employer] [facility] [address] [id number] Director: Rajendra Ramos PhD, Phone: [phone] Level3.7 mg/dL2.6-4.7FKettering HealthPlatelet mean volume Auto (Bld) [Entitic vol]on 91-57-2734Jpolvmlo mean volume (Bld) [Entitic vol]8.8 fLLow9.5-13.5FKettering Health Platelets Auto (Bld) [#/Vol]on 12-50-3378Uuyvcrefc (Bld) [#/Vol]225 10 3/uL 150-450Ohiohealth Van Wert HospitalRBC Auto (Bld) [#/Vol]on 37-38-6166ZLC (Bld) [#/Vol]3.41 10 6/uLLow4.20-5.40Fostoria City Hospitalerum or plasma anion gap determinationon 48-15-5099Mvxxe gap [Moles/Vol]9.4 mmol/L [facility] HospitalBasic metabolic 2000 panelOrdered By: Jose Miarnda on 57-27-5391Kjiuh gap [Moles/Vol]9 mmol/L9 - 18 mmol/LCleveland Clinic Calcium [Mass/Vol]11.1 mg/dLHigh8.5 - 10.2 mg/dLCleveland ClinicChloride [Moles/Vol]104 mmol/L97 - 105 mmol/LCleveland ClinicCO2 [Moles/Vol]28 mmol/L22 - 30 mmol/LCleveland ClinicCreatinine [Mass/Vol]1.57 mg/dLHigh0.58 - 0.96 mg/dL [facility] WestGFR/1.73 sq M.predicted among non-blacks MDRD (S/P/Bld) [Vol rate/Area]32 mL/min/{1.73_m2}Low- PINFCleveland ClinicComment on above:Estimated Glomerular Filtration Rate (eGFR) is calculated using the 2020 CKD-EPI creatinine equation. This equation utilizes serum creatinine, sex, and age as parameters. The creatinine assay has traceable calibration to isotope dilution- mass spectrometry. Refer to KDIGO guidelines for clinical interpretation. In patients with unstable renal function, e.g. those with acute kidney injury, the eGFRmay not accurately reflect actual GFR.Glucose [Mass/Vol]185 mg/bVSqgy57 - 99 mg/dLWadsworth-Rittman Hospital on above:The [place] Diabetes Association (ADA) provides guidance for cutoff values for fasting glucose andrandom glucose. The ADA defines fasting as no caloric intake for at least 8 hours. Fasting plasma gl ucose results between 100 to 125 mg/dL indicate [...] Standards of Medical Care in Diabetes 2016, [place] [employer]. Diabetes Care. 2016.39(Suppl 1). Interpretation and review of laboratory resultsAbnormalCleveland ClinicPotassium [Moles/Vol]5.4 mmol/LHigh3.7 - 5.1 mmol/LCleveland ClinicSodium [Moles/Vol]141 mmol/L136 - 144 mmol/LCleveland ClinicUrea nitrogen [Mass/Vol]40 mg/dLHigh7 - 21 mg/dLWadsworth-Rittman HospitalCB W Auto Differential panel (Bld)on 64-75-1957Chkizdvod (Bld) [#/Vol]0.04 10*3/uLNIMercy Health Perrysburg HospitalBasophils/100 WBC (Bld)0.8 %[facility] - WestDifferential cell count method Nom (Bld)Auto [facility] - WestEosinophils (Bld) [#/Vol]0.22 10*3/uLNINFLake County Memorial Hospital - West Eosinophils/100 WBC (Bld)4.4 %[facility] - WestErythrocyte distribution width (RBC) [Ratio]12.9 %11.5 - 15.0 %[facility] - WestHematocrit (Bld) [Volume fraction]35.3 %Low36.0 - 46.0 %[facility] WestHemoglobin (Bld) [Mass/Vol]11.8 g/dL11.5 - 15.5 g/dLLake County Memorial Hospital - WestImmature granulocytes (Bld) [#/Vol]NINF [facility] WestImmature granulocytes/100 WBC (Bld)0.4 %[facility] Interpretation and review of laboratory resultsAbnormalCHighland District Hospital Lymphocytes (Bld) [#/Vol]1.43 10*3/[facility] HospitalLymphocytes/100 WBC (Bld) 28.8 %[facility] SystemH (RBC) [Entitic mass]34.0 pg26.0 - 34.0 pgCSt. John of God HospitalHC (RBC) [Mass/Vol]33.4 g/dL30.5 - 36.0 g/dLHolzer Health SystemV (RBC) [Entitic vol]101.7 mVRqcl41.0 - 100.0 fLCHighland District HospitalMonocytes (Bld) [#/Vol] 0.48 10*3/NIMercy Health Perrysburg HospitalMonocytes/100 WBC (Bld)9.7 %[facility] Neutrophils (Bld) [#/Vol]2.78 10*3/[facility] HospitalNeutrophils/100 WBC (Bld) 55.9 %[facility] WestNucleated RBC (Bld) [#/Vol]NINFCHighland District HospitalNucleated RBC/100 WBC (Bld) [Ratio]0.0 %/100 WBCLake County Memorial Hospital - WestPlatelet mean volume (Bld) [Entitic vol]8.8 fLLow9.0 - 12.7 fLCtrinity health system ClinicPlatelets (Bld) [#/Vol]203 10*3/[facility] HospitalRBC (Bld) [#/Vol]3.47 10*6/uLLow3.90 - 5.20 m/[facility] HospitalWBC (Bld) [#/Vol]4.97 10*3/[facility] CampusNo Panel Informationon 78-02-5443Rdruuymnwyy Hormone (Intact)27 pg/hJ65-66RsrbhsglmOhiohealth Van Wert HospitalComment on above:Performed at: - [facility] [address] [id number] Director: Rajendra Ramos PhD, Phone: [phone] metabolic 2000 panelon 61-80-2433Mdfxx gap [Moles/Vol]9 mmol/L9 - 18 mmol/LCleveland ClinicCalcium [Mass/Vol]10.2 mg/dL8.5 - 10.2 mg/dLHope ClinicChloride [Moles/Vol]101 mmol/L97 - 105 mmol/LCleveland ClinicCO2 [Moles/Vol]27 mmol/L22 - 30 mmol/LCleveland ClinicCreatinine [Mass/Vol]1.44 mg/dLHigh0.58 - 0.96 mg/dLLake County Memorial Hospital - WestEstimated Glomerular Filtration Rate36 mL/min/1.73mLow>=60 mL/min/1.73mCleveland ClinicGlucose [Mass/Vol]211 mg/dLHigh 74 - 99 mg/dLLake County Memorial Hospital - WestPotassium [Moles/Vol]4.2 mmol/L3.7 - 5.1 mmol/L [facility] Hospitalodium [Moles/Vol]137 mmol/L136 - 144 mmol/LCleveland ClinicUrea nitrogen [Mass/Vol]37 mg/dLHigh7 - 21 mg/dLLake County Memorial Hospital - WestCB W Auto Differential panel (Bld)on 30-77-5650Udflogmye (Bld) [#/Vol]0.03 10*3/uL<0.11 k/uLLake County Memorial Hospital - WestBasophils/100 WBC (Bld)0.5 %[facility] WestDifferential cell count method Nom (Bld)AutoCleveland ClinicEosinophils (Bld) [#/Vol]0.19 10*3/uL<0.46 k/uLLake County Memorial Hospital - WestEosinophils/100 WBC (Bld)3.3 %[facility] Erythrocyte distribution width (RBC) [Ratio]13.1 %11.5 - 15.0 %[facility] Hematocrit (Bld) [Volume fraction]35.2 %Low36.0 - 46.0 %[facility] Hemoglobin (Bld) [Mass/Vol]11.5 g/dL11.5 - 15.5 g/dLLake County Memorial Hospital - WestImmature granulocytes (Bld) [#/Vol]<0.10 k/uLLake County [facility] Hospital - WestImmature granulocytes/100 WBC (Bld)0.3 %[facility] WestLymphocytes (Bld) [#/Vol]1.36 10*3/uL1.00 - 4.00 k/uLLake County [facility] Hospital - WestLymphocytes/100 WBC (Bld)23.4 %[facility] SystemH (RBC) [Entitic mass]33.1 pg26.0 - 34.0 pgClevelHendricks Community HospitalHC (RBC) [Mass/Vol]32.7 g/dL30.5 - 36.0 g/dLHolzer Health SystemV (RBC) [Entitic vol]101.4 oNLcpn43.0 - 100.0 fLCleveland ClinicMonocytes (Bld) [#/Vol]0.50 10*3/uL<0.87 k/uLLake County Memorial Hospital - WestMonocytes/100 WBC (Bld)8.6 %[facility] WestNeutrophils (Bld) [#/Vol]3.70 10*3/uL1.45 - 7.50 k/uLLake County Memorial Hospital - WestNeutrophils/100 WBC (Bld)63.9 %[facility] - WestNucleated RBC (Bld) [#/Vol]<0.01 k/uLLake County [facility] Hospital - WestNucleated RBC/100 WBC (Bld) [Ratio]0.0 /100 WBCLake County Memorial Hospital - WestPlatelet mean volume (Bld) [Entitic vol]9.1 fL9.0 - 12.7 fLCtrinity health system ClinicPlatelets (Bld) [#/Vol]205 10*3/uL150 - 400 k/uLLake County [facility] Hospital - WestRBC (Bld) [#/Vol]3.47 10*6/uLLow3.90 - 5.20 m/uL [facility] WestWBC (Bld) [#/Vol]5.80 10*3/uL3.70 - 11.00 k/uLLake [facility] West GLYCOHEMOGLOBIN A1Con 13-28-1566SGP RECOMMENDATIONSEE Cleveland ClinicComment on above:Result Comment: ADA RECOMMENDED LIMIT 4.0 - 6.0 ADA THERAPEUTIC TARGET < 7.0 ACTION SUGGESTED > 7.0Performed By: #### DATA1C #### [facility] [address] [address] [address] Ashley LunaGlucose [Mass/Vol]174 mg/dLNormalThe [facility] PrebleComment on above:Performed By: #### DATA1C #### [facility] [address] [address] [address] Ashley LunaHbA1c (Bld) [Mass fraction]7.7 %Critically high4.5-6.2The [facility] PrebleComment on above:Performed By: #### DATA1C #### [facility] [address] [place] [address] Dr. Ashley LunaCBC W Auto Differential panel (Bld)on 18-10-8401Nbplcbryf (Bld) [#/Vol]<0.11 k/uLLake County Memorial Hospital - WestBasophils/100 WBC (Bld)0.4 %[facility] Differential cell count method Nom (Bld)AutoCleveland ClinicEosinophils (Bld) [#/Vol]0.24 10*3/uL<0.46 k/uLClemercy health clermont hospital ClinicEosinophils/100 WBC (Bld)4.9 % [facility] WestErythrocyte distribution width (RBC) [Ratio]12.7 %11.5 - 15.0 % [facility] WestHematocrit (Bld) [Volume fraction]33.0 %Low36.0 - 46.0 % BaptisteSumma HealthHemoglobin (Bld) [Mass/Vol]10.6 g/dLLow11.5 - 15.5 g/dLLake County Memorial Hospital - WestImmature granulocytes (Bld) [#/Vol]<0.10 k/uLLake County Memorial Hospital - WestImmature granulocytes/100 WBC (Bld)0.2 %[facility] WestLymphocytes (Bld) [#/Vol]1.61 10*3/uL1.00 - 4.00 k/uLLake County Memorial Hospital - WestLymphocytes/100 WBC (Bld)32.7 %[facility] SystemH (RBC) [Entitic mass]33.8 pg26.0 - 34.0 pgClevelHendricks Community HospitalHC (RBC) [Mass/Vol]32.1 g/dL30.5 - 36.0 g/dLLake County Memorial Hospital - WestMCV (RBC) [Entitic vol]105.1 dKQxqp75.0 - 100.0 fLCleveland ClinicMonocytes (Bld) [#/Vol]0.48 10*3/uL<0.87 k/uLLake County [facility] - WestMonocytes/100 WBC (Bld)9.8 %[facility] WestNeutrophils (Bld) [#/Vol]2.56 10*3/uL1.45 - 7.50 k/uLLake County Memorial Hospital - WestNeutrophils/100 WBC (Bld)52.0 %[facility] WestNucleated RBC (Bld) [#/Vol]<0.01 k/uLL[facility] Nucleated RBC/100 WBC (Bld) [Ratio]0.0 /100 WBCLake County Memorial Hospital - WestPlatelet mean volume (Bld) [Entitic vol]9.0 fL9.0 - 12.7 fLClevelformerly southeastern [facility] ClinicPlatelets (Bld) [#/Vol]189 10*3/uL150 - 400 k/uLLake County [facility] Hospital - WestRBC (Bld) [#/Vol]3.14 10*6/uLLow 3.90 - 5.20 m/uLLake County Memorial Hospital - WestWBC (Bld) [#/Vol]4.92 10*3/uL3.70 - 11.00 k/uL [facility] WestComprehensive metabolic 2000 panelon 08-36-8141Klbgknw [Mass/Vol]4.1 g/dL3.9 - 4.9 g/dLHope ClinicALP [Catalytic activity/Vol]27 U/LLow34 - 123 U/LCleveland ClinicALT [Catalytic activity/Vol]9 U/L7 - 38 U/L Hope ClinicAnion gap [Moles/Vol]9 mmol/L9 - 18 mmol/LCleveland ClinicAST [Catalytic activity/Vol]12 U/LLow13 - 35 U/LCleveland ClinicBilirubin [Mass/Vol] 0.3 mg/dL0.2 - 1.3 mg/dLHope ClinicCalcium [Mass/Vol]9.5 mg/dL8.5 - 10.2 mg/dLHope ClinicChloride [Moles/Vol]100 mmol/L97 - 105 mmol/LCleveland ClinicCO2 [Moles/Vol]26 mmol/L22 - 30 mmol/LCleveland ClinicCreatinine [Mass/Vol]1.56 mg/dLHigh0.58 - 0.96 mg/dLLake County [facility] Hospital - WestEstimated Glomerular Filtration Rate33 mL/min/1.73mLow>=60 mL/min/1.73mCleveland Essentia HealthGlucose [Mass/Vol]246 mg/yFPujq59 - 99 mg/dLLake County [facility] Hospital - WestPotassium [Moles/Vol]4.6 mmol/L3.7 - 5.1 mmol/LCleveland ClinicProtein [Mass/Vol]6.7 g/dL6.3 - 8.0 g/dL [facility] Hospitalodium [Moles/Vol]135 mmol/HXma574 - 144 mmol/LCleveland [facility] Urea nitrogen [Mass/Vol]34 mg/dLHigh7 - 21 mg/dLLake County Memorial Hospital - WestFERRITIN BLDon 21-01-9048Ehrfkfvs [Mass/Vol]307.0 ng/dOMzov09.7 - 205.1 ng/mLCHighland District Hospital Iron and Iron binding capacity panelon 42-14-8265Eorl [Mass/Vol]97 ug/dL41 - 186 ug/dLLake County Memorial Hospital - WestIron binding capacity [Mass/Vol]308 ug/dL232 - 386 ug/dL [facility] - WestIron/TIBC [Molar ratio]31.5 %15.0 - 57.0 %[facility] MAMM SCREEN 3D SHARIF CADon 51-67-5445DH MAMM SCREEN 3D SHARIF CADPatient: HENRIETTA GROSS Exam Date: 12/11/2022 : 1940 Gender:F Ordering : DR ALEX NIX D.O. Admission #: [id number] Family : Order #: [id number] CLICK HERE TO VIEW EXAM RADIOLOGY REPORT [...] Treatments None Family Cancers None LOCATION: [facility] BREAST COMPOSITION: Almost entirely fatty. FINDINGS: DIAGNOSTIC [...] LUMP SHOULD BE BIOPSIED. Dictated by: Merrill Khan M.D. on 12/12/2022 at 13:52 Approved by: Merrill Khan M.D. on 12/12/2022 at 13:54[facility] Union HospitalPROF CHEM 8 (BAS METB)on 75-45-5406Qzkdz gap [Moles/Vol]11.9 mmol/L NormalRegency Hospital ToledoComment on above:Performed By: #### URTPCR #### [facility] [address] [place] [address] Dr. Ashley LunaCalcium [Mass/Vol]9.2 mg/dLNormal8.5-10.1[facility] Comment on above:Performed By: #### URTPCR #### [facility] [address] [place] [address] Dr. Ashley LunaChloride [Moles/Vol]102 mmol/XFexzsq11-550QsoRegency Hospital Toledo Comment on above:Performed By: #### URTPCR #### [facility] [address] [place] [address] Dr. Ashley LunaCO2 [Moles/Vol]28.4 mmol/ANltebz59.0-32.0The [facility] Comment on above:Performed By: #### URTPCR #### [facility] [address] [place] [address] Dr. Ashley LunaCreatinine [Mass/Vol]1.68 mg/dLCritically high0.55-1.02The [facility]bleComment on above:Performed By: #### URTPCR #### [facility] [address] [address] [address] Ramirez ChangEGFR-AF OLPGUBXE11 mL/min/1.15k4Augonlodxe low>=60The [facility] Centerment on above:Performed By: #### URTPCR #### [facility] [address] [address] [address] Ramirez ChangEGFR-NON AF VXMRAUMZ27 mL/min/1.14o5Pmfxdmbfig low>=60The [facility]bleComment on above:Performed By: #### URTPCR #### [facility] [address] [address] [address] Ashley LunaGlucose [Mass/Vol]265 mg/dLCritically ceho67-596Wnm [facility] Medical Centerment on above:Performed By: #### URTPCR #### [facility] [address] [place] [address] Dr. Ashley LunaPotassium [Moles/Vol]4.3 mmol/LNormal3.5-5.1[facility] Comment on above:Performed By: #### URTPCR #### [facility] [address] [address] [address] Ashley LunaSodium [Moles/Vol]138 mmol/CKzbzbf667-109Rib [facility] Comment on above:Performed By: #### URTPCR #### [facility] [address] [address] [address] Ashley LunaUrea nitrogen [Mass/Vol]38.0 mg/dLCritically high7.0-18.0The [facility]bleComment on above:Performed By: #### URTPCR #### [facility] [address] [address] [address] Ashley LunaUrea nitrogen/Creatinine [Mass ratio]22.6 mg/mgNormalThe [facility]bleComment on above:Performed By: #### URTPCR #### [facility] [address] [address] [address] Ashley LunaVITAMIN D 25 OHon 04-20-2339LTC D 25-OH36.2 ng/mLNormalThe Thong HospitalComment on above:Performed By: #### URTPCR #### [facility] [address] [place] [address] Dr. Ashley NICHOLSON Cleveland ClinicComment on above: Result Comment: <20 ng/mL Vit D deficient 20 - <30 ng/mL Vit D insufficient 30 - 100 ng/mL Vit D sufficient >100 ng/mL Potential ToxicityPerformed By: #### URTPCR #### [facility] [address] [place] [address] Dr. Ashley LunaPT INTACTon 02-23-0427KJE, Ptmbjm02 pg/yAPadwlz61-15Uvq [facility]bleComment on above:Performed By: #### PTHINT #### [facility] [address] [place] [address] Dr. Ashley LunaHEMOGRAM AND PLATELon 61-70-5707Qpylzqhonk (Bld) [Volume fraction]32.9 %Critically low36.0-48.0The [facility]bleComment on above: Performed By: #### VITAD #### [facility] [address] [place] [address] Dr. Ashley LunaHemoglobin (Bld) [Mass/Vol]11.1 g/dLCritically low12.0-16.0The [facility] on above:Performed By: #### VITAD #### [facility] [address] [place] [address] Dr. Ashley Ruiz (RBC) [Entitic mass]33.4 rbAsjakg62.7-34.0[facility] on above:Performed By: #### VITAD #### [facility] [address] [place] [address] Dr. Ashley Ruiz (RBC) [Mass/Vol]33.7 g/vGQsapbn53.9-35.2The [facility]bleComment on above:Performed By: #### VITAD #### [facility] [address] [place] [address] Dr. Aslhey Ruiz (RBC) [Entitic vol]99.1 fLCritically high81.0-99.0The [facility]bleComment on above:Performed By: #### VITAD #### [facility] [address] [place] [address] Dr. Ashley LunaPLT195 103/vrEhknkl045-176Pgy [facility]bleComment on above: Performed By: #### VITAD #### [facility] [address] [place] [address] Dr. Ashley LunaRBC3.32 106/ulCritically low4.20-5.40The [facility]bleComment on above:Performed By: #### VITAD #### [facility] [address] [place] [address] Dr. Ashley LunaWBC7.6 103/ulNormal4.0-11.0The [facility] PrebleComment on above: Performed By: #### VITAD #### [facility] [address] [place] [address] Dr. Ashley LunaMAGNESIUMon 48-74-9427Uxviettvt [Mass/Vol]1.6 mg/dLCritically low 1.8-2.4The [facility]bleComment on above:Performed By: #### URIC, RENAL, MG #### [facility] [address] [place] [address] Dr. Ashley LunaRENMERLE FUNCTION PANELon 79-76-7034Fcbwwlx [Mass/Vol]3.3 g/dL Critically low3.4-5.0The [facility] PrebleComment on above:Performed By: #### URIC, RENAL, MG #### [facility] [address] [place] [address] Dr. Ashley LunaCalcium [Mass/Vol]9.9 mg/dLNormal8.5-10.1The [facility] Comment on above:Performed By: #### URIC, RENAL, MG #### [facility] [address] [place] [address] Dr. Ashley LunaChloride [Moles/Vol]100 mmol/ZRdumwn46-545Dim [facility] Comment on above:Performed By: #### URIC, RENAL, MG #### [facility] [address] [place] [address] Dr. Ashley LunaCO2 [Moles/Vol]28.4 mmol/GZlewsu40.0-32.0The [facility] Comment on above:Performed By: #### URIC, RENAL, MG #### [facility] [address] [place] [address] Dr. Ashley LunaCreatinine [Mass/Vol]1.56 mg/dLCritically high0.55-1.02The [facility]bleComment on above:Performed By: #### URIC, RENAL, MG #### [facility] [address] [place] [address] Dr. Ashley NorwoodGFR-AF AMKBEWVZ81 mL/min/1.20m9Qqyjweyokc low>=60The [facility]bleComment on above:Performed By: #### URIC, RENAL, MG #### [facility] [address] [place] [address] Dr. Ashley NorwoodGFR-NON AF QZRCPHCQ61 mL/min/1.91r3Ttjlkehoaz low>=60The [facility] PrebleComment on above:Performed By: #### URIC, RENAL, MG #### [facility] [address] [place] [address] Dr. Ashley LunaGlucose [Mass/Vol]197 mg/dLCritically dgtd19-063Err [facility]bleComment on above:Performed By: #### URIC, RENAL, MG #### [facility] [address] [place] [address] Dr. Ashley LunaPhosphate [Mass/Vol]3.5 mg/dLNormal2.6-4.7The [facility] Comment on above:Performed By: #### URIC, RENAL, MG #### [facility] [address] [place] [address] Dr. Ashley LunaPotassium [Moles/Vol]4.3 mmol/LNormal3.5-5.1The [facility] Comment on above:Performed By: #### URIC, RENAL, MG #### [facility] [address] [place] [address] Dr. Yilan ChangSodium [Moles/Vol]136 mmol/YWgkdfs295-256QrgRegency Hospital Toledo Comment on above:Performed By: #### URIC, RENAL, MG #### [facility] [address] [address] [address] Ashley Dennis nitrogen [Mass/Vol]33.0 mg/dLCritically high7.0-18.0Regency Hospital ToledoComment on above:Performed By: #### URIC, RENAL, MG #### [facility] [address] [address] [address] Ashley Collins RANDOM W/MICROSCOPICon 51-23-5788BJSLHLJPBCXICClklwnaiLUGW SEENRegency Hospital ToledoComment on above:Performed By: #### URTPCR #### [facility] [address] [place] [address] Dr. Ashley LunaBilirubin Ql (U)NegativeNormalNEGATIVERegency Hospital Toledo Comment on above:Performed By: #### URTPCR #### [facility] [address] [place] [address] Dr. Ashley LunaCASTJUDITHE SEENNormalNONE SEENRegency Hospital ToledoComment on above:Performed By: #### URTPCR #### [facility] [address] [place] [address] Dr. Ashley Paganarity (U)CLEARNormalCLEARThe [facility]bleComment on above: Performed By: #### URTPCR #### [facility] [address] [place] [address] Dr. Ashley Mancuso (U)LT. YELLOWNormalYELLOWRegency Hospital ToledoComment on above:Performed By: #### URTPCR #### [facility] [address] [address] [address] Ashley Ceballosystals LM Nom (Urine sed)NONE SEENNormalNONE SEENRegency Hospital ToledoComment on above:Performed By: #### URTPCR #### [facility] [address] [place] [address] Dr. Ramirez ChangEpithelial cells LM Ql (Urine sed)NONE SEENNormalNONE SEEN /RARE The [facility] PrebleComment on above:Performed By: #### URTPCR #### [facility] [address] [place] [address] Dr. Ashley LunaGlucose Ql (U)NegativeNormalNEGATIVERegency Hospital ToledoComment on above:Performed By: #### URTPCR #### [facility] [address] [address] [address] Ashley LunaHemoglobin Ql (U)TRACE-INTACTAbnormalNEGATIVERegency Hospital ToledoComment on above:Performed By: #### URTPCR #### [facility] [address] [place] [address] Dr. Ashley LunaKetones Ql (U)NegativeNormalNEGATIVERegency Hospital ToledoCommclaren northern [place] on above:Performed By: #### URTPCR #### [facility] [address] [place] [address] Dr. Ashley LunaLEUKOCYTESLARGEAbnormalNEGKettering Health Washington TownshipComment on above:Performed By: #### URTPCR #### [facility] [address] [place] [address] Dr. Ashley LunaMUCOUSNONE SEENNormalNONE SEENRegency Hospital ToledoCommclaren northern [place] on above:Performed By: #### URTPCR #### [facility] [address] [place] [address] Dr. Ashley LunaNitrite Ql (U)NegativeNormalNEGATIVERegency Hospital ToledoComment on above:Performed By: #### URTPCR #### [facility] [address] [place] [address] Dr. Ashley LunapH (U)7.0 [pH]Normal5-9Regency Hospital ToledoCommclaren northern [place] on above: Performed By: #### URTPCR #### [facility] [address] [place] [address] Dr. Ashley LunaVzsfbPBB6-8Fzxsdl2-6Ikc Bellevue HospitalComment on above:Performed By: #### URTPCR #### [facility] [address] [place] [address] Dr. Ashley LunaSPEC GRAVITY1.575Chsioz8.005-<=1.025The [facility] PrebleComment on above:Performed By: #### URTPCR #### [facility] [address] [place] [address] Dr. Ashley Collins PROTEINNegativeNormalNEGATIVE/ TRACEThe [facility] Comment on above:Performed By: #### URTPCR #### [facility] [address] [place] [address] Dr. Ashley Martinez Qn (U)0.2 {Jaquan'U}/dLNormal0.2 - 1.0The [facility] PrebleComment on above:Performed By: #### URTPCR #### [facility] [address] [place] [address] Dr. Ashley LunaWBC5-10AbnormalNONE SEENThe [facility]bleComment on above: Performed By: #### URTPCR #### [facility] [address] [place] [address] Dr. Ashley Galarza ACID SERUMon 10-68-8905Pepdq [Mass/Vol]6.9 mg/dLCritically high2.6-6.0The [facility]bleComment on above:Performed By: #### URIC, RENAL, MG #### [facility] [address] [place] [address] Dr. Ashley Richard T PROTEIN CREAT RATIOon 93-80-7697Hcwwutc (U) [Mass/Vol] 25.6 mg/dLCritically high<=12.0The [facility]bleComment on above:Performed By: #### URTPCR #### [facility] [address] [place] [address] Dr. Ashley Hawkins PROT CREAT RAT0.53NormalThe [facility]bleComment on above: Performed By: #### URTPCR #### [facility] [address] [place] [address] Dr. Ashley Richard CREAT48.36 mg/tKDeliwb06.00-300.00The [facility] Comment on above:Performed By: #### URTPCR #### [facility] [address] [address] [address] Ashley LunaVITAMIN D 25 OHon 58-12-3743HCV D 25-OH35.7 ng/mLNCleveland Clinic South Pointe HospitalComment on above:Performed By: #### VITAD #### [facility] [address] [address] [address] Ashley Schmidt RANGESSEE Cleveland ClinicComment on above: Result Comment: <20 ng/mL Vit D deficient 20 - <30 ng/mL Vit D insufficient 30 - 100 ng/mL Vit D sufficient >100 ng/mL Potential ToxicityPerformed By: #### VITAD #### [facility] [address] [address] [address] Ashley LunaComprehensive metabolic 2000 panelon 73-76-2336Myvhexd [Mass/Vol] 4.0 g/dL3.9 - 4.9 g/dLHope ClinicALP [Catalytic activity/Vol]27 U/LLow34 - 123 U/LCleveland ClinicALT [Catalytic activity/Vol]12 U/L7 - 38 U/LCleveland ClinicAnion gap [Moles/Vol]9 mmol/L9 - 18 mmol/LCleveland ClinicAST [Catalytic activity/Vol]12 U/LLow13 - 35 U/LCleveland ClinicBilirubin [Mass/Vol]0.3 mg/dL 0.2 - 1.3 mg/dLHope ClinicCalcium [Mass/Vol]9.6 mg/dL8.5 - 10.2 mg/dL [facility] ClinicChloride [Moles/Vol]101 mmol/L97 - 105 mmol/LCleveland ClinicCO2 [Moles/Vol]25 mmol/L22 - 30 mmol/LCleveland ClinicCreatinine [Mass/Vol]1.64 mg/dLHigh0.58 - 0.96 mg/dLLake County Memorial Hospital - WestEstimated Glomerular Filtration Rate31 mL/min/1.73mLow>=60 mL/min/1.73mCleveland ClinicGlucose [Mass/Vol]240 mg/dLHigh 74 - 99 mg/dLLake County Memorial Hospital - WestPotassium [Moles/Vol]4.1 mmol/L3.7 - 5.1 mmol/L [facility] WestProtein [Mass/Vol]6.2 g/dLLow6.3 - 8.0 g/dLLake County Memorial Hospital [facility] West Sodium [Moles/Vol]135 mmol/NSyj118 - 144 mmol/LCleveland Essentia HealthUrea nitrogen [Mass/Vol]31 mg/dLHigh7 - 21 mg/dLLake County Memorial Hospital - WestFERRITIN BLDon 07-08-2022 Ferritin [Mass/Vol]307.0 ng/nXMhfb13.7 - 205.1 ng/mLCleveland ClinicIron and Iron binding capacity panelon 93-13-9601Efna [Mass/Vol]112 ug/dL41 - 186 ug/dL [facility] WestIron binding capacity [Mass/Vol]322 ug/dL232 - 386 ug/dL [facility] WestIron/TIBC [Molar ratio]34.8 %15.0 - 57.0 %[facility] WestMRI LSPINE WO CONon 22-06-9496KRA [facility] WO CONEXAMINATION: MRI [facility] WO CON HISTORY: Low back pain , [...] of little benefit. Electronically authenticated by: MERRILL KHAN Date: 2022-05-16 07:56NormalThe [facility] PreblePTH INTACTon 29-08-7336JXL, Opjhlj57 pg/vWUbjrcm70-62Xpz [facility] PrebleComment on above:Performed By: #### URTPCR #### [facility] [address] [address] [address] Ashley Schmidt 25-[place] LABCORPon 85-90-3493Fpcnoem D, 25-Bkjgqfe60.1 ng/mL Zxrkwo80.0-100.0The [facility] on above:Result Comment: Vitamin D deficiency has been defined by the [place] of Medicine and an Endocrine Society practice guideline as a level of serum 25-OH vitamin D less than 20 ng/mL (1,2). The Endocrine Society went on to further define vitamin D insufficiency as a level between 21 and 29 ng/mL (2). 1. IOM ([place] of [employer]). 2010. Dietary reference intakes for calcium and D. [place]: The National Academies Press. 2. Casey MF, Constantino NC, Lauro NG, et al. Evaluation, treatment, and prevention of vitamin D deficiency: an Endocrine Society clinical practice guideline. JCEM. 2010; 96(7):1911-30.Performed By: #### VITADLC #### [facility] [address] [address] [address] Ashley LunaHEMOGRAM AND PLATELon 29-86-3810Obbjhqqsvh (Bld) [Volume fraction]35.7 %Critically low36.0-48.0The [facility] PrebleComment on above: Performed By: #### HH #### [facility] [address] [place] [address] Dr. Ashley LunaHemoglobin (Bld) [Mass/Vol]11.6 g/dLCritically low12.0-16.0The [facility] HospitalComment on above:Performed By: #### HH #### [facility] [address] [place] [address] Dr. Ashley RuizH (RBC) [Entitic mass]33.3 qnBlxznc92.7-34.0The [facility] PrebleComment on above:Performed By: #### HH #### [facility] [address] [place] [address] Dr. Ashley RuizHC (RBC) [Mass/Vol]32.5 g/fPBfwmsq22.9-35.2The [facility] PrebleComment on above:Performed By: #### HH #### [facility] [address] [place] [address] Dr. Ashley RuizV (RBC) [Entitic vol]102.6 fLCritically high81.0-99.0The [facility] PrebleComment on above:Performed By: #### HH #### [facility] [address] [place] [address] Dr. Ashley LunaPLT240 103/aeDalkea112-276Skq [facility] PrebleComment on above: Performed By: #### HH #### [facility] [address] [place] [address] Dr. Ashley LunaRBC3.48 106/ulCritically low4.20-5.40The [facility] PrebleComment on above:Performed By: #### HH #### [facility] [address] [place] [address] Dr. Ashley LunaWBC5.0 103/ulNormal4.0-11.0The [facility] PrebleComment on above: Performed By: #### HH #### [facility] [address] [address] [address] Ashley LunaMAGNESIUMon 38-03-3121Tfhehnvcx [Mass/Vol]1.8 mg/dLNormal1.8-2.4 The [facility] PrebleComment on above:Performed By: #### URTPCR #### [facility] [address] [place] [address] Dr. Ashley LunaRENAL FUNCTION PANELon 24-74-2900Cfikuuh [Mass/Vol]3.4 g/dLNormal 3.4-5.0The [facility] PrebleComment on above:Performed By: #### URTPCR #### [facility] [address] [place] [address] Dr. Ashley LunaCalcium [Mass/Vol]9.4 mg/dLNormal8.5-10.1The [facility] Comment on above:Performed By: #### URTPCR #### [facility] [address] [place] [address] Dr. Ashley LunaChloride [Moles/Vol]103 mmol/YVffbwe01-781Tgu [facility] Comment on above:Performed By: #### URTPCR #### [facility] [address] [place] [address] Dr. Ashley LunaCO2 [Moles/Vol]27.8 mmol/YDnxvct93.0-32.0The [facility] Comment on above:Performed By: #### URTPCR #### [facility] [address] [place] [address] Dr. Ashley LunaCreatinine [Mass/Vol]1.67 mg/dLCritically high0.55-1.02The [facility] PrebleComment on above:Performed By: #### URTPCR #### [facility] [address] [place] [address] Dr. Ramirez ChangEGFR-AF JXBVSQMS17 mL/min/1.11x3Koxjaryhxr low>=60The [facility] PrebleComment on above:Performed By: #### URTPCR #### [facility] [address] [address] [address] Ashley NorwoodGFR-NON AF QRBCBGSY34 mL/min/1.00u5Bozqexshkk low>=60The [facility] PrebleComment on above:Performed By: #### URTPCR #### [facility] [address] [address] [address] Ashley LunaGlucose [Mass/Vol]152 mg/dLCritically zdea15-858Pqu [facility] PrebleComment on above:Performed By: #### URTPCR #### [facility] [address] [address] [address] Ashley LunaPhosphate [Mass/Vol]3.5 mg/dLNormal2.6-4.7The [facility] Comment on above:Performed By: #### URTPCR #### [facility] [address] [place] [address] Dr. Ashley LunaPotassium [Moles/Vol]4.3 mmol/LNormal3.5-5.1[facility] Comment on above:Performed By: #### URTPCR #### [facility] [address] [address] [address] Ashley LunaSodium [Moles/Vol]139 mmol/FDzegre367-263YcjRegency Hospital Toledo Comment on above:Performed By: #### URTPCR #### [facility] [address] [address] [address] Ashley LunaUrea nitrogen [Mass/Vol]41.0 mg/dLCritically high7.0-18.0The [facility] PrebleComment on above:Performed By: #### URTPCR #### [facility] [address] [place] [address] Dr. Ashley LunaUA RANDOM W/MICROSCOPICon 26-00-5995IGUOLDGMRFDNDSqdrraqiOSYD SEENThe [facility] PrebleComment on above:Performed By: #### UAMIC #### [facility] [address] [place] [address] Dr. Ashley LunaBilirubin Ql (U)NegativeNormalNEGATIVEThe [facility] Comment on above:Performed By: #### UAMIC #### [facility] [address] [address] [address] Ashley CabezasNONKrysta SEENNormalNONE SEENRegency Hospital ToledoComment on above:Performed By: #### UAMIC #### [facility] [address] [place] [address] Dr. Ashley Busch (U)CLEARNormalCLEARRegency Hospital ToledoComment on above: Performed By: #### UAMIC #### [facility] [address] [address] [address] Ashley Mancuso (U)LT. YELLOWNormalYELLOWRegency Hospital ToledoComment on above:Performed By: #### UAMIC #### [facility] [address] [place] [address] Dr. Ashley LunaCrystals LM Nom (Urine sed)NONE SEENNormalNONE SEENRegency Hospital ToledoComment on above:Performed By: #### UAMIC #### [facility] [address] [place] [address] Dr. Ashley Norwoodpithelial cells LM Ql (Urine sed)FEWAbnormalNONE SEEN /RAREThe [facility] PrebleComment on above:Performed By: #### UAMIC #### [facility] [address] [place] [address] Dr. Ashley LunaGlucose Ql (U)NegativeNormalNEGATIVERegency Hospital ToledoCommclaren northern [place] on above:Performed By: #### UAMIC #### [facility] [address] [place] [address] Dr. Ashley LunaHemoglobin Ql (U)TRACE-INTACTAbnormalNEGATIVERegency Hospital ToledoComment on above:Performed By: #### UAMIC #### [facility] [address] [place] [address] Dr. Ashley LunaKetones Ql (U)NegativeNormalNEGATIVERegency Hospital ToledoComment on above:Performed By: #### UAMIC #### [facility] [address] [place] [address] Dr. Ashley LunaLEUKOCYTESMODERATEAbnormalNEGATIVERegency Hospital ToledoComment on above:Performed By: #### UAMIC #### [facility] [address] [address] [address] Ashley McleanCOUSNONE SEENNormalNONE SEENRegency Hospital ToledoComment on above:Performed By: #### UAMIC #### [facility] [address] [place] [address] Dr. Ashley Yang Ql (U)PositiveAbnormalNEGATIVEThe [facility] Comment on above:Performed By: #### UAMIC #### [facility] [address] [place] [address] Dr. Ashley LunapH (U)5.5 [pH]Normal5-9The [facility] PrebleComment on above: Performed By: #### UAMIC #### [facility] [address] [place] [address] Dr. Ashley LunaAtapgLBW3-2Ibkcsktg1-6Vuu [facility] PrebleComment on above:Performed By: #### UAMIC #### [facility] [address] [place] [address] Dr. Ashley LunaSPEC GRAVITY1.823Wclrvb6.005-<=1.025The [facility] PrebleComment on above:Performed By: #### UAMIC #### [facility] [address] [place] [address] Dr. Ashley Collins PROTEINNegativeNormalNEGATIVE/ TRACEThe [facility] Comment on above:Performed By: #### UAMIC #### [facility] [address] [place] [address] Dr. Ashley Almendarezbilinogen Qn (U)0.2 {Jaquan'U}/dLNormal0.2 - 1.0The [facility] PrebleComment on above:Performed By: #### UAMIC #### [facility] [address] [place] [address] Dr. Ashley LunaKmidrIGF05-585YuvkahoxBBST SEENThe [facility] PrebleComment on above: Performed By: #### UAMIC #### [facility] [address] [place] [address] Dr. Ashley LunaURIC ACID SERUMon 06-11-7669Yjzps [Mass/Vol]7.3 mg/dLCritically high2.6-6.0[facility] ToledoComment on above:Performed By: #### URTPCR #### [facility] [address] [address] [address] Ashley Richard T PROTEIN CREAT RATIOon 15-51-8653Wfygufj (U) [Mass/Vol] 14.6 mg/dLCritically high<=12.0The [facility]bleComment on above:Performed By: #### URTPCR #### [facility] [address] [address] [address] Ashley Hawkins PROT CREAT RAT0.26NoalThFirelands Regional Medical Center South CampusComment on above: Performed By: #### URTPCR #### [facility] [address] [address] [address] Ashley Richard CREAT56.96 mg/lBEzckkd75.00-300.00The [facility] Comment on above:Performed By: #### URTPCR #### [facility] [address] [address] [address] Ashley Luna Vital Signs Date TimeVital SignValuePerforming XxzduhzlgSrmdimct62-82-6128 11:040Body vdyslv226.6 cmChrlaron Ward DPM Work Phone: [facility] CenterDpuoyskgon29-47-8959 11:040Body mass index (BMI) [Ratio]25.82 kg/k2Krbicqytuvivesta Ward DPM Work Phone: [facility] CenterTzjtykoxbb95-89-4966 11:040Body .58 kgChvesta Ward DPM Work Phone: [facility] CenterDniqxxjuuo82-63-9789 11:040Diastolic blood vgnvcbgy74 mm[Hg]Chantal Ward DPM Work Phone: [facility] CenterEqfelrpyqk20-94-6016 11:040Heart rate77 /min Chantal Ward DPM Work Phone: [facility] CenterUegrpvdhao53-24-7928 11:17-0400Systolic blood vespcvzp048 mm[Hg]Chantal Ward DPM Work Phone: [facility] CenterNxnssgmoln10-96-9415 10:39-0400Body .02 cmBenjamin Ball DO Work Phone: [facility]09-17-2025 10:39-0400 Body mass index (BMI) [Ratio]26 kg/n1Sxnyhxhm Ball DO Work Phone: [phone]09-17-2025 10:39-0400 Body vjulmy39.67 kgBenjamin Ball DO Work Phone: [phone]09-17-2025 10:39-0400 Diastolic blood hvvefwcq20 mm[Hg]Alex Ball DO Work Phone: [phone]09-17-2025 10:39-0400 Heart rate78 /minBenjamin Ball DO Work Phone: [phone]09-17-2025 10:39-0400 Respiratory rate12 /minBenjamin Ball DO Work Phone: [phone]09-17-2025 10:39-0400 Systolic blood touuxfjk722 mm[Hg]Alex Ball DO Work Phone: [phone]08-08-2025 11:21-0400 Body iquaiy565.6 Liat Ward DPM Work Phone: [facility] CenterNygfvgswcr05-46-6809 11:21-0400Body mass index (BMI) [Ratio]25.82 kg/k7Pfatdtkeahwvesta Ward DPM Work Phone: [facility] CenterIvkznngpmn47-60-4134 11:21-0400Body .58 kgChvesta Ward DPM Work Phone: [facility] CenterSsnxnxhyqc98-49-3140 11:21-0400Diastolic blood twcbijym60 mm[Hg]Chantal Ward DPM Work Phone: [facility] CenterQvubdhoypp88-67-4152 11:21-0400Heart rate75 /min Chantal Ward DPM Work Phone: [facility]OCaron[facility] HealthYvvhwskdta95-55-0455 11:21-0400Systolic blood ghpbiaal822 mm[Hg]Chantal Ward DPM Work Phone: [facility] CenterLzikjtripm67-05-0229 14:35-0400Body gxrpsu910.4 cmMaranda Schmid APRN.COMPUTER NUMERIC CONTROL SETTER Work Phone: [facility]07-28-2025 14:35-0400Body mass index (BMI) [Ratio]28.85 kg/t4CxarlMaranda Schmid APRN.COMPUTER NUMERIC CONTROL SETTER Work Phone: [facility]07-28-2025 14:35-0400Body temperature 98.01 [degF]Maranda Schmid APRN.COMPUTER NUMERIC CONTROL SETTER Work Phone: [facility]07-28-2025 14:35-0400Body ajqlpx19 kg Maranda Schmid APRN.COMPUTER NUMERIC CONTROL SETTER Work Phone: [facility]07-28-2025 14:35-0400Diastolic blood uoasjdwp10 mm[Hg]Maranda Schmid APRN.COMPUTER NUMERIC CONTROL SETTER Work Phone: [facility]07-28-2025 14:35-0400Heart rate82 /min Maranda Schmid APRN.COMPUTER NUMERIC CONTROL SETTER Work Phone: [facility]07-28-2025 14:35-0400Respiratory rate 16 /minMaranda Schmid APRN.COMPUTER NUMERIC CONTROL SETTER Work Phone: [facility]07-28-2025 14:35-3894EkU3% (BldA) [Mass fraction]95 %Maranda Schmid APRN.COMPUTER NUMERIC CONTROL SETTER Work Phone: [facility]07-28-2025 14:35-0400Systolic blood qefrpdly239 mm[Hg]Maranda Schmid APRN.COMPUTER NUMERIC CONTROL SETTER Work Phone: [facility]06-06-2025 11:23-0400Body wghayh364.6 cmChristholly Ward DPM Work Phone: [facility] CenterWioceywnvv14-99-0718 11:23-0400Body mass index (BMI) [Ratio]25.82 kg/c9Wgqugbxlomw Bohach DPM Work Phone: [facility] CenterBaaygginxr93-04-3413 11:23-0400Body .58 kgChristopher Bohach DPM Work Phone: [facility] CenterAfqaozpxpm45-01-2507 11:23-0400Diastolic blood kbjpyydh91 mm[Hg]Christopher Bohach DPM Work Phone: [facility] CenterNzzhrlylsf95-94-9394 11:23-0400Heart rate72 /min Christopher Bohach DPM Work Phone: [facility] CenterHcrctfiqxa94-60-3569 11:23-0400Systolic blood ypweuzkf942 mm[Hg]Christmonier Bohach DPM Work Phone: [facility] CenterYdwpzmpwnz87-52-4983 09:30-0400Body mass index (BMI) [Ratio]29.41 kg/y5EwmgdMaranda Schmid APRN.COMPUTER NUMERIC CONTROL SETTER Work Phone: [facility]05-06-2025 09:30-0400Body temperature 97.5 [degF]Maranda Schmid APRN.COMPUTER NUMERIC CONTROL SETTER Work Phone: [facility]05-06-2025 09:30-0400Body .3 kgMaranda Schmid APRN.COMPUTER NUMERIC CONTROL SETTER Work Phone: [facility]05-06-2025 09:30-0400Diastolic blood xzskfnmu65 mm[Hg]Maranda Schmid APRN.COMPUTER NUMERIC CONTROL SETTER Work Phone: [facility]05-06-2025 09:30-0400Heart rate74 /min Maranda Schmid APRN.COMPUTER NUMERIC CONTROL SETTER Work Phone: [facility]05-06-2025 09:30-0400Respiratory rate 16 /minMaranda Schmid APRN.COMPUTER NUMERIC CONTROL SETTER Work Phone: [facility]05-06-2025 09:30-8406AtQ0% (BldA) [Mass fraction]95 %Maranda Schmid APRN.COMPUTER NUMERIC CONTROL SETTER Work Phone: [facility]05-06-2025 09:30-0400Systolic blood mm[Hg]Maranda Schmid APRN.COMPUTER NUMERIC CONTROL SETTER Work Phone: [facility]04-21-2025 16:01-0400Body abdgsq645.02 cm[facility]04-21-2025 16:01-0400Body mass index (BMI) [Ratio]27.6 kg/x9AizdhyxzbOhiohealth [facility] Hospital04-21-2025 16:01-0400Body .76 kgOhio[facility]04-21-2025 16:01-0400Diastolic blood otrdcnso39 mm[Hg][facility]04-21-2025 16:01-0400 Heart rate80 /[facility]04-21-2025 16:01-0400 Respiratory rate16 /[facility]04-21-2025 16:01-0400 Systolic blood texfkgvj642 mm[Hg][facility]04-03-2025 14:55-0400Body wawmaw628.6 cmChristholly Ward DPM Work Phone: [facility] CenterAfbvyaqjap24-57-2495 14:55-0400Body mass index (BMI) [Ratio]25.82 kg/f3Hdsbmvntgxh Bohach DPM Work Phone: [facility] CenterNugrvriins82-65-0504 14:55-0400Body .58 kgChristopher Bohach DPM Work Phone: [facility] CenterQexodtzijk66-87-5901 14:55-0400Heart rate81 /min Christholly Ward DPM Work Phone: [facility] CenterNzcescuymk36-15-2622 10:33-0400Body .02 cm[facility]03-12-2025 10:33-0400Body mass index (BMI) [Ratio]27.6 kg/y7YuxejcmosOhiohealth Van Wert Hospital03-12-2025 10:33-0400Body oszqhw98.76 kgOhiohealth [facility] Hospital03-12-2025 10:33-0400Diastolic blood mm[Hg][facility]03-12-2025 10:33-0400 Heart rate81 /[facility]03-12-2025 10:33-0400 Respiratory rate12 /[facility]03-12-2025 10:33-0400 Systolic blood thjvoyoa311 mm[Hg][facility]01-30-2025 11:51-0500Body icvaqn484 cmCistophemily Ward DPM Work Phone: [phone] [place], [place] [address]01-30-2025 11:51-0500Body mass index (BMI) [Ratio]28.34 kg/a1Jidzudfvcaj Bohach DPM Work Phone: [phone] [place], [place] [address]01-30-2025 11:51-0500Body igkrna65.58 kgChristopher Bohach DPM Work Phone: [phone]-[facility] CenterTktycgpiie95-42-0935 11:51-0500Diastolic blood eduogcft36 mm[Hg]Chantal Ward DPM Work Phone: [phone]-[facility] CenterKyyunlzpwc65-35-0538 11:51-0500Heart rate70 /min Chantal Ward DPM Work Phone: [phone] HospitalMay[facility] CenterOajxcfemtj88-73-5005 11:51-0500Systolic blood dxfcquty955 mm[Hg]Chantal Ward DPM Work Phone: [phone]-[facility] CenterUsrnxtkykh37-50-9148 10:12-0500Body fhhlul446.6 cmChristholly Bohach DPM Work Phone: [phone] [place], [place] [address]Gstzgsdvgd42-52-3495 10:12-0500Body mass index (BMI) [Ratio]25.82 kg/z8Ikpjtfhbykb Bohach DPM Work Phone: [phone] [place], [place] [address]Zjijvaizom24-62-4887 10:12-0500Body .58 kgChristopher Caputojustin DPM Work Phone: [facility] CenterWqmlidktof92-34-0823 10:12-0500Diastolic blood phjyxkex98 mm[Hg]Chantal Ward DPM Work Phone: [address] [address]Irozadjetr04-31-0271 10:12-0500Heart rate65 /min Chantal Ward DPM Work Phone: [address] [address]Ottafcmoqf52-24-5802 10:12-0500Systolic blood yrfrzrmt650 mm[Hg]Chantal Ward DPM Work Phone: [facility] CenterEakfymgdki69-89-8036 14:43-0500Body mass index (BMI) [Ratio]29.92 kg/e8MkinxMaranda Schmid APRN.COMPUTER NUMERIC CONTROL SETTER Work Phone: [facility]11-14-2024 14:43-0500Body temperature 97.59 [degF]Maranda Schmid APRN.COMPUTER NUMERIC CONTROL SETTER Work Phone: [facility]11-14-2024 14:43-0500Body .5 kgMaranda Schmid APRN.COMPUTER NUMERIC CONTROL SETTER Work Phone: [facility]11-14-2024 14:43-0500Diastolic blood mm[Hg]Maranda Schmid APRN.COMPUTER NUMERIC CONTROL SETTER Work Phone: [facility]11-14-2024 14:43-0500Heart rate86 /min Maranda Schmid APRN.COMPUTER NUMERIC CONTROL SETTER Work Phone: [facility]11-14-2024 14:43-0500Respiratory rate 18 /minMaranda Schmid APRN.COMPUTER NUMERIC CONTROL SETTER Work Phone: [facility]11-14-2024 14:43-1685QrN7% (BldA) [Mass fraction]95 %Maranda Schmid APRN.COMPUTER NUMERIC CONTROL SETTER Work Phone: [facility]11-14-2024 14:43-0500Systolic blood qkizuzcc058 mm[Hg]Maranda Schmid APRN.COMPUTER NUMERIC CONTROL SETTER Work Phone: [facility]09-23-2024 11:38-0400Body .02 cmOhio[facility]09-23-2024 11:38-0400Body mass index (BMI) [Ratio]27.1 kg/t4VhwtgskklOhiohealth Van Wert Hospital09-23-2024 11:38-0400Body tkvmzehaqau07.4 [degF][facility]09-23-2024 11:38-0400Body ezguad74.39 kgOhiohealth Van [facility] Hospital09-23-2024 11:38-0400Diastolic blood xgavayxz90 mm[Hg][facility]09-23-2024 11:38-0400 Heart rate67 /[facility]09-23-2024 11:38-0400 Respiratory rate16 /[facility]09-23-2024 11:38-0400 SaO2% (BldA) [Mass fraction]97 %[facility]09-23-2024 11:38-0400Systolic blood dqupbhon482 mm[Hg][facility] 07-09-2024 10:58-0400Body irtrqo897 cmChristholly Ward DPM Work Phone: [facility] CenterBvgugqvpch06-47-1036 10:58-0400Body mass index (BMI) [Ratio]28.34 kg/k8Hiqnvqhseka Bohach DPM Work Phone: [facility] CenterFqtjxcztsi62-55-0433 10:58-0400Body gfydyd88.58 kgChristopher Ward DPM Work Phone: [facility] CenterLslfebcvnp44-46-4868 10:58-0400Diastolic blood nrwnmomw91 mm[Hg]Chantal Ward DPM Work Phone: [facility] CenterJxbornyvjk66-35-8912 10:58-0400Heart rate73 /min Chantal Ward DPM Work Phone: [facility] CenterIfuerethpp36-40-2503 10:58-0400Systolic blood uuylbjuq200 mm[Hg]Chantal Ward DPM Work Phone: [facility] CenterJcmsnfbluo25-33-3167 11:10-0400Body .02 cm[facility]08-16-2024 11:10-0400Body mass index (BMI) [Ratio]27.3 kg/s4BdegjbycsOhiohealth Van Wert Hospital08-16-2024 11:10-0400Body epcgzd10.85 kgOhiohealth Van [facility]ert Hospital08-16-2024 11:10-0400Diastolic blood mm[Hg][facility]08-16-2024 11:10-0400 Heart rate71 /[facility]08-16-2024 11:10-0400 Respiratory rate12 /[facility]08-16-2024 11:10-0400 Systolic blood gfmdzpso304 mm[Hg][facility]05-09-2024 13:07-0400Body .4 cmAtif Yousif MD Work Phone: [facility]05-09-2024 13:07-0400Body mass index (BMI) [Ratio]29.88 kg/p1SkrtyAtif Yousif MD Work Phone: [facility]05-09-2024 13:07-0400Body temperature 97.81 [degF]Atif Yousif MD Work Phone: [facility]05-09-2024 13:07-0400Body ornadq05.4 kgAtif Yousif MD Work Phone: [facility]05-09-2024 13:07-0400Diastolic blood mskyhqdp34 mm[Hg]Atif Yousif MD Work Phone: [facility]05-09-2024 13:07-0400Heart rate70 /min Atif Yousif MD Work Phone: [facility]05-09-2024 13:07-0400Respiratory rate 16 /minAtif Yousif MD Work Phone: [facility]05-09-2024 13:07-0146EfT6% (BldA) [Mass fraction]96 %Atif Yousif MD Work Phone: [facility]05-09-2024 13:07-0400Systolic blood ljmelcnk453 mm[Hg]Atif Yousif MD Work Phone: [facility]02-20-2024 10:31-0500Body pomxlp447.02 cmOhiohealth Van Wert [facility]24 10:31-0500Body mass index (BMI) [Ratio]27.3 kg/h0LyunyqliaOhio[facility]02-20-2024 10:31-0500Body tyvpksasgto83.1 [degF][facility]02-20-2024 10:31-0500Body voqegm23.85 kgOhio[facility]02-20-2024 10:31-0500Diastolic blood gqxiyzlp04 mm[Hg][facility]02-20-2024 10:31-0500 Heart rate68 /[facility]02-20-2024 10:31-0500 Respiratory rate16 /[facility]02-20-2024 10:31-0500 SaO2% (BldA) [Mass fraction]98 %[facility]02-20-2024 10:31-0500Systolic blood iumsnoaj433 mm[Hg][facility] 11-27-2023 11:07-0500Body menrwx961 cmChrlaron Ward DPM Work Phone: [facility] CenterFjzltfffpg19-48-2158 11:07-0500Body mass index (BMI) [Ratio]28.34 kg/c4Rykcbdtqssb Ed DPM Work Phone: [facility] CenterLkodhdilor51-71-9366 11:07-0500Body koipvs99.58 kgChvesta Ward DPM Work Phone: [facility] CenterIlussgeyoi62-70-4498 11:07-0500Diastolic blood mqrcrpee80 mm[Hg]Chantal Ward DPM Work Phone: [facility] CenterDyhayltyov29-99-5749 11:07-0500Heart rate71 /min Chantal Ward DPM Work Phone: [facility] CenterGdklhppohd06-52-8759 11:07-0500Respiratory rate18 /minChristopher Bohach DPM Work Phone: [facility] CenterYtbawooszt49-08-2701 11:07-0500Systolic blood dlcawwej561 mm[Hg]Chantal Ward DPM Work Phone: [facility] CenterLcubognbam89-28-3867 10:00-0500Body ifscra999.02 cmOhio[facility]11-30-2023 10:00-0500Body anpmad95.85 kg [facility]11-30-2023 10:00-0500Diastolic blood eepfabzr32 mm[Hg][facility]11-30-2023 10:00-0500Systolic blood igouifys657 mm[Hg][facility]08-30-2023 10:30-0400Body .02 cmBenjamin Ball Other [employer] Other 08-30-2023 10:30-0400Body mass index (BMI) [Ratio] 27.28 kg/q7Vtzyzdnu Ball Other [employer] Other 08-30-2023 10:30-0400Body .85 kgBenjamin Ball Other [employer] Other 08-30-2023 10:30-0400Diastolic blood umnjqqqi99 mm[Hg] Alex Ball Other [employer] Other 08-30-2023 10:30-0400Respiratory rate12 /minBenjamin Ball Other [employer] Other 08-30-2023 10:30-0400Systolic blood xgclobeb007 mm[Hg] Alex Ball Other [employer] Other 08-10-2023 10:20-0400Body xizczb838.02 cmAbdul Dolores Other [employer] Other 08-10-2023 10:20-0400Body mass index (BMI) [Ratio] 28.34 kg/g3Bpnab Dolores Other [employer] [place] Other 08-10-2023 10:20-0400Body tdrppbezkwz75.1 [degF]Mir Dolores Other [employer] Other 08-10-2023 10:20-0400Body vxwsbu77.58 kgAbdul Dolores Other [employer] Other 08-10-2023 10:20-0400Diastolic blood mm[Hg] Mir Dolores Other [employer] Other 08-10-2023 10:20-0400Respiratory rate16 /minAbdul Dolores Other [facility] Other 08-10-2023 10:20-5035VvA5% (BldA) [Mass fraction]98 % Mir Dolores Other [employer] Other 08-10-2023 10:20-0400Systolic blood mm[Hg] Mir Dolores Other [employer] Other 07-13-2023 14:23-0400Body sdkhio282.4 cmAtif Yousif MD Work Phone: [facility]07-13-2023 14:23-0400Body temperature 97.11 [degF]Atif Yousif MD Work Phone: [facility]07-13-2023 14:23-0400Diastolic blood tgbhzlgu86 mm[Hg]Atif Yousif MD Work Phone: [facility]07-13-2023 14:23-0400Heart rate84 /min Atif Yousif MD Work Phone: [facility]07-13-2023 14:23-0400Respiratory rate 16 /minAtif Yousif MD Work Phone: [facility]07-13-2023 14:23-8605AhD5% (BldA) [Mass fraction]94 %Atif Yousif MD Work Phone: [facility]07-13-2023 14:23-0400Systolic blood iguczbnh458 mm[Hg]Atif Yousif MD Work Phone: [facility]05-30-2023 10:30-0400Body hnasco504.02 cmBenjamin Ball Other [employer] Other 05-30-2023 10:30-0400Body mass index (BMI) [Ratio] 27.54 kg/s7Aibbpgvi Ball Other [employer] Other 05-30-2023 10:30-0400Body .53 kgBenjamin Ball Other [employer] Other 05-30-2023 10:30-0400Diastolic blood piqjepat70 mm[Hg] Alex Ball Other [employer] Other 05-30-2023 10:30-0400Respiratory rate12 /minBenjamin Ball Other [employer] Other 05-30-2023 10:30-0400Systolic blood aspmbqip381 mm[Hg] Alex Ball Other [employer] Other 05-01-2023 14:00-0400Body zdjtma183.02 cmBebryant [employer] Other [employer] Other 05-01-2023 14:00-0400Body mass index (BMI) [Ratio] 27.54 kg/y0Ijhhzaam [employer] Other [facility] [employer] Other 05-01-2023 14:00-0400Body ezanxa15.53 kgBebryant [employer] Other [facility] [employer] Other 04-20-2023 09:29-0400Body erzffe376.4 cmAtif Yousif MD Work Phone: [facility]04-20-2023 09:29-0400Body temperature 97.59 [degF]Atif Yousif MD Work Phone: [facility]04-20-2023 09:29-0400Diastolic blood jyljbzem16 mm[Hg]Atif Yousif MD Work Phone: [facility]04-20-2023 09:29-0400Heart rate77 /min Atif Yousif MD Work Phone: [facility]04-20-2023 09:29-0400Respiratory rate 16 /minAtif Yousif MD Work Phone: [facility]04-20-2023 09:29-7775PyZ4% (BldA) [Mass fraction]99 %Atif Yousif MD Work Phone: [facility]04-20-2023 09:29-0400Systolic blood mm[Hg]Atif Yousif MD Work Phone: [facility]03-09-2023 14:06-0500Diastolic blood bmkdsthi28 mm[Hg][facility]03-09-2023 14:06-0500Heart rate73 /minZagurjit Zumbar [facility]03-09-2023 14:06-0500Mean blood nhdjsykl410 mm[Hg][facility]03-09-2023 14:06-0500 Respiratory rate16 /minMikey [facility]en [facility]03-09-2023 14:06-0500 Systolic blood glrtlzmu112 mm[Hg][facility]03-08-2023 09:42-0500 Diastolic blood gwgylibg26 mm[Hg]Lab/[place] Work Phone: [facility]03-08-2023 09:42-0500Heart rate69 /min Lab/Social [place] Work Phone: [facility]03-08-2023 09:42-0500Respiratory rate 18 /minLab/[place] Work Phone: [facility]03-08-2023 09:42-1122VxI6% (BldA) [Mass fraction]97 %Lab/[place] Work Phone: [facility]03-08-2023 09:42-0500Systolic blood liflefft197 mm[Hg]Lab/[place] Work Phone: [facility]02-27-2023 10:00-0500Body weemob342.02 cmBenjamin Ball Other [employer] [place] Other 02-27-2023 10:00-0500Body mass index (BMI) [Ratio] 28.34 kg/h2Zyfdartc Ball Other [facility] [employer] Other 02-27-2023 10:00-0500Body .58 kgBenjamin Ball Other [facility] [employer] Other 02-27-2023 10:00-0500Diastolic blood dyysfdcq35 mm[Hg] Alex Nix Other [employer] Other 02-27-2023 10:00-0500Respiratory rate12 /minBenjajaney Nix Other [employer] Other 02-27-2023 10:00-0500Systolic blood mm[Hg] Alex Nix Other [employer] Other 02-08-2023 10:20-0500Body yhkbld456.02 cmAbdul Dolores Other [employer] Other 02-08-2023 10:20-0500Body mass index (BMI) [Ratio] 28.34 kg/q5Zwpyl Dolores Other [employer] Other 02-08-2023 10:20-0500Body ddbfyclqpbm04.4 [degF]Mir Dolores Other [employer] Other 02-08-2023 10:20-0500Body jqpazj17.58 kgAbdul Dolores Other [employer] Other 02-08-2023 10:20-0500Diastolic blood emkacnvt32 mm[Hg] Mir Dolores Other [employer] Other 02-08-2023 10:20-0500Respiratory rate18 /minAbdul Dolores Other [employer] Other 02-08-2023 10:20-7785AiZ1% (BldA) [Mass fraction]97 % Mir Dolores Other [employer] Other [id number] 10:20-0500Systolic blood oiwiicnw996 mm[Hg] Mir Amin Other [facility] [employer] Other [id number] 14:26-0500Body covvuz227.4 cmAtif Yousif MD Work Phone: [facility]01-23-2023 14:26-0500Body temperature 97.39 [degF]Atif Yousif MD Work Phone: [facility]01-23-2023 14:26-0500Body mayugy19.85 kgAtif Yousif MD Work Phone: [facility]01-23-2023 14:26-0500Diastolic blood awnylnks57 mm[Hg]Atif Yousif MD Work Phone: [facility]01-23-2023 14:26-0500Heart rate84 /min Atif Yousif MD Work Phone: [facility]01-23-2023 14:26-0500Respiratory rate 16 /minAtif Yousif MD Work Phone: [facility]01-23-2023 14:26-5042MvV7% (BldA) [Mass fraction]94 %Atif Yousif MD Work Phone: [facility]01-23-2023 14:26-0500Systolic blood pwaufvqf402 mm[Hg]Atif Yousif MD Work Phone: [facility]12-22-2022 10:31-0500Diastolic blood etvqmyid26 mm[Hg][facility]12-22-2022 10:31-0500Heart rate77 /minZagurjit [facility]12-22-2022 10:31-0500Mean blood ihbseqdg563 mm[Hg][facility]12-22-2022 10:31-0500 Respiratory rate12 /minZagurjit [facility]12-22-2022 10:31-0500 Systolic blood mm[Hg][facility]11-28-2022 14:50-0500Body hehowl344.4 cmMaranda Schmid APRN.COMPUTER [employer] SETTER Work Phone: [facility]11-28-2022 14:50-0500Body temperature 97.39 [degF]Maranda Schmid APRN.COMPUTER [employer]TER Work Phone: [facility]11-28-2022 14:50-0500Body lmghso27.58 kgMaranda Schmid APRN.COMPUTER [employer]TER Work Phone: [facility]11-28-2022 14:50-0500Diastolic blood lchedjgq45 mm[Hg]Maranda Schmid APRN.COMPUTER [employer]IC [employer] SETTER Work Phone: [facility]11-28-2022 14:50-0500Heart rate67 /min Maranda Schmid APRN.COMPUTER [employer]TER Work Phone: [facility]11-28-2022 14:50-0500Respiratory rate 16 /minMaranda Schmid APRN.COMPUTER [employer]IC [employer] SETTER Work Phone: [facility]11-28-2022 14:50-3066HvJ8% (BldA) [Mass fraction]98 %Maranda Schmid APRN.COMPUTER [employer] SETTER Work Phone: [facility]11-28-2022 14:50-0500Systolic blood ofqppdyo932 mm[Hg]Maranda Schmid APRN.COMPUTER [employer]TER Work Phone: [facility]09-19-2022 10:03-0400Body hegvfq424.4 Eduar Yousif MD Work Phone: [facility]09-19-2022 10:03-0400Body temperature 97.2 [degF]Atif Yousif MD Work Phone: [facility]09-19-2022 10:03-0400Diastolic blood qgkmmacm74 mm[Hg]Atif Yousif MD Work Phone: [facility]09-19-2022 10:03-0400Heart rate73 /min Atif Yousif MD Work Phone: [facility]09-19-2022 10:03-0400Respiratory rate 16 /minAtif Yousif MD Work Phone: [facility]09-19-2022 10:03-0175YbX5% (BldA) [Mass fraction]97 %Atif Yousif MD Work Phone: [facility]09-19-2022 10:03-0400Systolic blood rlqmroyx648 mm[Hg]Atif Yousif MD Work Phone: [facility]09-01-2022 14:07-0400Diastolic blood jsbyfpmv19 mm[Hg][facility]key [facility]09-01-2022 14:07-0400Heart rate74 /minZachary [facility]bar [facility]09-01-2022 14:07-0400Mean blood mm[Hg]Mikey [facility]09-01-2022 14:07-0400 Respiratory rate18 /minZachary [facility]bar [facility]09-01-2022 14:07-0400 Systolic blood zhlmgepb398 mm[Hg]Mikey [facility]08-02-2022 11:00-0400Body jgzrqe698.02 cmAbdul Dolores Other [employer] Other [id number] 11:00-0400Body mass index (BMI) [Ratio] 28.34 kg/t9Awhkf Dolores Other [employer] Other 08-02-2022 11:00-0400Body ispglsdzbvq25.1 [degF]Mir Dolores Other [employer] Other 08-02-2022 11:00-0400Body kthaee78.58 kgAbdul Dolores Other [employer] Other 08-02-2022 11:00-0400Diastolic blood mm[Hg] Mir Dolores Other [employer] Other 08-02-2022 11:00-0400Respiratory rate18 /minAbdul Dolores Other [employer] Other 08-02-2022 11:00-7895ToY8% (BldA) [Mass fraction]97 % Mir Dolores Other [employer] Other 08-02-2022 11:00-0400Systolic blood aqkadcys455 mm[Hg] Mir Dolores Other [employer] Other [id number] 13:51-0400Diastolic blood mm[Hg] Mikey [facility]07-14-2022 13:51-0400Heart rate71 /minZachary [facility]bar [facility]07-14-2022 13:51-0400Mean blood kvczjsoc064 mm[Hg]Mikey [facility]07-14-2022 13:51-0400 Respiratory rate16 /minMikey [facility]en [facility]07-14-2022 13:51-0400 Systolic blood atzhfqpp432 mm[Hg][facility]06-27-2022 15:19-0400Body .4 cmAtif Yousif MD Work Phone: [facility]06-27-2022 15:19-0400Body temperature 97.81 [degF]Atif Yousif MD Work Phone: [facility]06-27-2022 15:19-0400Body gevcni07.12 kgAtif Yousif MD Work Phone: [facility]06-27-2022 15:19-0400Diastolic blood wezzzvgk08 mm[Hg]Atif Yousif MD Work Phone: [facility]06-27-2022 15:19-0400Heart rate83 /min Atif Yousif MD Work Phone: [facility]06-27-2022 15:19-0400Respiratory rate 16 /minAtif Yousif MD Work Phone: [facility]06-27-2022 15:19-6546DeT2% (BldA) [Mass fraction]93 %Atif Yousif MD Work Phone: [facility]06-27-2022 15:19-0400Systolic blood mremkyas191 mm[Hg]Atif Yousif MD Work Phone: [facility]05-12-2022 14:40-0400Diastolic blood gxrurftd33 mm[Hg]Lab/[place] Work Phone: [facility]05-12-2022 14:40-0400Heart rate72 /min Lab/[place] Work Phone: [facility]05-12-2022 14:40-0400Respiratory rate 18 /minLab/[place] Work Phone: [facility]05-12-2022 14:40-0400Systolic blood ftomecvx553 mm[Hg]Lab/[place] Work Phone: [facility]04-21-2022 15:36-0400Body icthvk323.4 cmAtif Yousif MD Work Phone: [facility]04-21-2022 15:36-0400Body temperature 98.4 [degF]Atif Yousif MD Work Phone: [facility]04-21-2022 15:36-0400Diastolic blood mm[Hg]Atif Yousif MD Work Phone: [facility]04-21-2022 15:36-0400Heart rate81 /min Atif Yousif MD Work Phone: [facility]04-21-2022 15:36-0400Respiratory rate 16 /minAtif Yousif MD Work Phone: [facility]04-21-2022 15:36-6085ZsM1% (BldA) [Mass fraction]96 %Atif Yousif MD Work Phone: [facility]04-21-2022 15:36-0400Systolic blood mm[Hg]Atif Yousif MD Work Phone: [facility]03-29-2022 11:00-0400Body aayhxo104.02 cmAbdul Dolores Other [employer] [place] Other 03-29-2022 11:00-0400Body mass index (BMI) [Ratio] 28.34 kg/r5Rwvpz Dolores Other [employer] Other 03-29-2022 11:00-0400Body .7 [degF]Mir Dolores Other [employer] Other 03-29-2022 11:00-0400Body .58 kgAbdul Dolores Other [employer] Other 03-29-2022 11:00-0400Diastolic blood gjwxyape01 mm[Hg] Mir Dolores Other [employer] Other 03-29-2022 11:00-0400Respiratory rate18 /minAbdul Dolores Other [employer] Other 03-29-2022 11:00-9379QyJ4% (BldA) [Mass fraction]96 % Mir Dolores Other [employer] Other 03-29-2022 11:00-0400Systolic blood gvcgfquw188 mm[Hg] Mir Dolores Other [employer] Other 12-28-2021 10:20-0500Body .02 cmAbdul Dolores Other [employer] Other 12-28-2021 10:20-0500Body mass index (BMI) [Ratio] 29.76 kg/o6Jnujy Dolores Other [employer] Other 12-28-2021 10:20-0500Body .2 [degF]Mir Dolores Other [employer] Other 12-28-2021 10:20-0500Body odbnbb02.2 kgAbdul Dolores Other [employer] Other 12-28-2021 10:20-0500Diastolic blood byauaadc87 mm[Hg] Mir Dolores Other [employer] Other 12-28-2021 10:20-0500Respiratory rate18 /minAbdul Dolores Other [facility] [employer] Other 12-28-2021 10:20-2925RgU0% (BldA) [Mass fraction]96 % Mir Dolores Other [employer] Other 12-28-2021 10:20-0500Systolic blood mm[Hg] Mir Dolores Other [facility] [employer] Other Encounters Encounter DateEncounter TypeCare ProviderFacilityStart: 08-05-2025 End: 49-66-3220Crrxav flowsheetChantal Ward DPM Work Phone: [facility] [place] [facility]Start: 08-05-2025 End: 45-00-2486Qimzww flowsheetChvesta Ward DPZhou Work Phone: [facility]iatryStart: 08-05-2025 End: 32-53-7940Jxnvacc encounter procedureChristopher Celia Ward DPZhou Work Phone: [facility] [place] PodiatryComment on above:Idiopathic progressive polyneuropathy (Primary Dx); Onychomycosis; Corns and callositiesStart: 08-05-2025 End: 34-27-8482asilmqdmaeXMRJTVWXCEC J BOHACHNot AvailableStart: 08-04-2025 End: 90-19-7037veildzprxpEhckanwk Ball DO Work Phone: [facility] Work Phone: Start: 08-04-2025 End: 01-43-4766Cfrrazc encounter procedureNatividad Corona MD-[facility] Work Phone: Start: 07-06-2025 End: 58-56-6283kqduxgzssxDslsbarh Ball DO Work Phone: [facility] Work Phone: Start: 07-06-2025 End: 99-08-8426Cejuknl encounter procedureBebryant Dinah DO-[facility] Work Phone: Start: 05-27-2025 End: 74-23-5396Ooqjxq flowsheetChristopher J Bohach DPM Work Phone: [facility]iatryStart: 05-27-2025 End: 94-16-9030Rmtatf flowsheetChristopher J Bohach DPM Work Phone: [facility]iatryStart: 05-27-2025 End: 47-31-1117Tncliof encounter procedureChristopher J Bohach DPM Work Phone: [facility] [place] PodiatryComment on above:Idiopathic progressive polyneuropathy (Primary Dx); Onychomycosis; Corns and callositiesStart: 05-27-2025 End: 92-12-9334llekakikexRJVTQLUSIJN Celia WARDNot AvailableStart: 05-16-2025 End: 47-97-9269Egzrenf encounter Sofia Schmid APRN.[employer]TER Work Phone: Hematology/OncologyStart: 55-91-0237Pyd-patient / Non-visitMINDY ELISSA Epperson PA-C-[facility] Work Phone: Start: 05-16-2025 End: 14-77-6548ttkrwlpccrXyqwq Martinez APRN.COMPUTER [employer] CONTR[employer] SETTER Work Phone: Hematology/OncologyComment on above:Iron deficiency (Primary Dx); Chronic renal impairment, stage 3 (moderate), unspecified whether stage 3a or 3b CKD (HCC); Type 2 diabetes mellitus without complication, without long-term current use of insulin (HCC); Crohn's disease without complication, unspecified gastrointestinal tract location (HCC); Type 2 diabetes mellitus with hyperglycemia, with long-term current use of insulin (HCC); Anemia, unspecified typeStart: 05-09-2025 End: 19-59-5745Ulzdibomr Pedro Escobedo RNHematology/OncologyComment on above:Lab OrdersStart: 04-06-2025 End: 90-54-3142tlrdbqzbhhWGQHAHBX E BALLFacility:[facility] Hospitaltart: 03-31-2025 End: 68-73-2090Oxydtovrv Wendi Schmid APRN.CNP Work Phone: [facility] LaboratoryComment on above:Lab OrdersStart: 03-25-2025 End: 53-69-5535Mquqec flowsheetChristopher Celia Ward DPM Work Phone: [facility] PODIATRYStart: 03-25-2025 End: 84-58-1639Auxfub flowsheetChristopher Celia Ward DPZhou Work Phone: noMS [facility] PODIATRYStart: 03-25-2025 End: 26-70-1724zstbqitdreIEQNRZQJJKK J BOHACHNot AvailableStart: 03-25-2025 End: 26-52-7533Ywivvru encounter procedureChristopher Celia Ward DPZhou Work Phone: n[facility] PODIATRYComment on above:Idiopathic progressive polyneuropathy (Primary Dx); Onychomycosis; Corns and callosities; Pain in both feetStart: 02-22-2025 End: 82-25-0190Uunrnmiue Wendi Schmid APRN.CNP Work Phone: Cancer Appts MCComment on above:ResultsStart: 02-22-2025 End: 47-75-5598Ivcqxcz encounter Sofia Schmid APRN.CNP Work Phone: Hematology/OncologyStart: 02-22-2025 End: 27-64-8615ulyrumiuvnGpwgnJerald Schmid APRN.CNP Work Phone: Hematology/OncologyComment on above:Iron deficiency (Primary Dx); Chronic renal impairment, stage 3 (moderate), unspecified whether stage 3a or 3b CKD (HCC); Type 2 diabetes mellitus without complication, without long-term current use of insulin (HCC); Crohn's disease without complication, unspecified gastrointestinal tract location (HCC)Start: 2025 End: 23-14-4974hwbzathvlmFxbupsimdKettering Health [facility] Work Phone: Start: 2025 End: 70-69-4738Xxifqap encounter procedureBar[facility] Work Phone: Start: 2025 End: 03-04-1403Lwleer flowsMichael Marks DO Work Phone: [facility] OPHTStart: 2025 End: 89-03-5438Lgktxc flowsMichael Marks DO Work Phone: [facility] OPHTStart: 2025 End: 71-63-4461Ynnipq follow up visit related to original Tano Marks DO Work Phone: noms NB OPHTComment on above:Basal cell carcinoma (BCC) of right lower eyelid (Primary Dx); Malignant neoplasm of skin of eyelid, including canthusStart: 2025 End: 99-92-8291iuvxffibraFHPZNOYAGilmar Ramirez AvailableStart: 01-28-2025 End: 30-23-3445Fwi Drop offBelinda Marks [facility] Start: 01-28-2025 End: 08-95-3758Slvzzbn encounter procedureBelinda Marks DO Work Phone: noms NB OPHTComment on above:Malignant neoplasm of skin of eyelid, including canthus (Primary Dx); Basal cell carcinoma (BCC) of right lower eyelid; Hemorrhage of eyelidStart: 01-28-2025 End: 86-47-1551wwlgerfdhnGARobbie MarksFacility:FTMCStart: 01-21-2025 End: 44-00-5812wgotywtyrlEUJRVYBK D ZAHLERNot AvailableStart: 01-20-2025 End: 17-14-1921Jbrijsz encounter procedureChvesta Ward DPM Work Phone: [facility] PODIATRYComment on above:Idiopathic progressive polyneuropathy (Primary Dx); Onychomycosis; Corns and callosities; Pain in both feetStart: 01-20-2025 End: 55-40-4086ourskuqhgjVTGMBCMQSVB J BOHACHNot AvailableStart: 01-20-2025 End: 16-20-7462Sdxpdu flowsheetChvesta Ward DPM Work Phone: [facility] PODIATRYStart: 01-20-2025 End: 83-58-1770Mikztk flowsheetChantal Ward DPM Work Phone: [facility] PODIATRYStart: 12-29-2024 End: 47-81-8547syycahmmzcFbamxytbpAdams County Hospital Work Phone: Start: 12-29-2024 End: 57-46-9997Iuywktd encounter procedureFormerly [facility] Work Phone: Start: 84-30-6578Lum-patient / Non-visitFormerly [facility] Work Phone: Start: 11-18-2024 End: 14-21-2363Sblooc flowsheetChvesta Ward DPM Work Phone: [facility] PODIATRYStart: 11-18-2024 End: 71-51-3514Vhbanx flowsheetChvesta Ward DPM Work Phone: [facility] PODIATRYStart: 11-18-2024 End: 03-07-4159Aygkssx encounter procedureChvesta Ward DPM Work Phone: n[facility] PODIATRYComment on above:Idiopathic progressive polyneuropathy (Primary Dx); Onychomycosis; Corns and callosities; Pain in toes of both feet; Pain in both feetStart: 11-18-2024 End: 36-82-6333pgcpvmdzyyXAFWHMYMUXR J BOHACHNot AvailableStart: 09-23-2024 [facility] 09-13-2024 End: 41-62-6339Npdqel flowsheetChvesta Ward DPM Work Phone: [facility] PODIATRYStart: 09-13-2024 End: 21-23-0851Dqdiwp flowsheetChvesta Ward DPM Work Phone: [facility] PODIATRYStart: 09-13-2024 End: 91-91-1931Nkuuzrl encounter procedureChvesta Ward DPM Work Phone: n[facility] PODIATRYComment on above:Idiopathic progressive polyneuropathy (Primary Dx); Onychomycosis; Corns and callositiesStart: 09-13-2024 End: 83-20-3686kxcrkdpjfpYXFJNUOBXRE J BOHACHNot AvailableStart: 09-02-2024 End: 01-24-6940Bwbfrnf encounter Sofia Schmid APRN.CNP Work Phone: Hematology/OncologyStart: 09-02-2024 End: 61-83-1417thmdwxcctzYqglcJerald Schmid APRN.CNP Work Phone: Hematology/OncologyComment on above:Iron deficiency anemia due to chronic blood loss (Primary Dx); Iron deficiency; Chronic renal impairment, stage 3 (moderate), unspecified whether stage 3a or 3b CKD (HCC); Type 2 diabetes mellitus without complication, without long-term current use of insulin (HCC); Crohn's disease without complication, unspecified gastrointestinal tract location (HCC)Start: 08-24-2024 End: 21-31-4873Xrgtltvdv Wendi Schmid APRN.CNP Work Phone: Hematology/OncologyComment on above:Lab OrdersStart: 08-02-2024 End: 73-94-1079cwoyvlvmupTryilsrwzKettering Health [facility] Work Phone: Start: 08-02-2024 End: 69-06-3715Ecqdngm encounter procedureFormerly [facility] Physician [facility] Work Phone: Start: 07-12-2024 End: 85-63-2776ofixfwoegxPoryffklgKettering Health Greene Memorial Work Phone: Start: 07-12-2024 End: 90-46-8658Yyggrmv encounter procedureFormerly [facility] Physician [facility] [place] Work Phone: Start: 07-09-2024 End: 13-40-0157Eseadh flowsheetChristopher Yang Bohach DPM Work Phone: noms WWW PODIATRYStart: 07-09-2024 End: 85-91-6495Jcgsaa flowsheetChristopher J Bohach DPM Work Phone: noms WWW PODIATRYStart: 07-09-2024 End: 42-01-9513Mzhynzp encounter procedureChristopher Celia Bohach DPM Work Phone: noms WWW PODIATRYComment on above:Idiopathic progressive polyneuropathy (Primary Dx); Onychomycosis; Corns and callositiesStart: 01-08-8826Oqp-patient / Non-visitFormerly [facility] Phys[facility] GroupKad[facility] Work Phone: Start: 06-04-2024 End: 43-70-2785Nonssbc encounter procedureFormerly [facility] Physician GroupUniversity [facility]als [facility] Work Phone: Start: 76-12-5037Uvf-patient / Non-visitFormerly [facility] Physician [facility] [place] Work Phone: Start: 91-23-3440Ogpqvreet encounterNatmorena Escobedo RN Hematology/OncologyComment on above:ResultsStart: 02-26-2024 End: 91-29-1963gzxwjtccvlBehmt R Murphy MD Work Phone: Hematology/OncologyComment on above:Anemia of chronic renal failure, stage 3b (HCC) (HCC) (Primary Dx); Chronic renal impairment, stage 3b (HCC); History of iron deficiency; Type 2 diabetes mellitus without complication, without long-term current use of insulin (HCC)Start: 02-26-2024 End: 07-08-7975Gfsnbwa encounter procedureAtif Yousif MD Work Phone: Hematology/OncologyStart: 12-09-2023 End: 50-56-0146nfpjrhlviaPdfwgozziKettering Health [facility] Work Phone: Start: 12-09-2023 End: 05-67-4406Akukdgd encounter procedureFormerly [facility] Physician Group-[facility] Nephrology Work Phone: Start: 14-67-1371Oeu-patient / Non-visitFormerly [facility]ician [facility] Work Phone: Start: 57-64-1637Hwhhxi flowsheetChvesta Ward DPM Work Phone: noms WWW PODIATRYStart: 85-88-9737Wxmmwe flowsheet Chantal Ward DPM Work Phone: noms WWW PODIATRYStart: 11-27-2023 End: 63-43-6810Tuhvwrp encounter procedureChvesta Ward DPM Work Phone: noms WWW PODIATRYComment on above:Idiopathic progressive polyneuropathy (Primary Dx); Onychomycosis; Corns and callositiesStart: 11-06-2023 End: 30-32-6154nqwvrhlaidWylhivvc Dinah Other [facility] [place] Other Start: 25-16-9444Qtrwcezbb encounterBenoni NixSalem City Hospitaltart: 09-18-2023 End: 25-32-3404Vfaiewu encounter procedureFormerly [facility] Physician [facility] Work Phone: Start: 08-22-2023 End: 53-07-8925ctllbknihqWstpxgux Ball Other [employer] Other Start: 78-78-4596Cvzbwhcse encounterBenoni ArevaloG [facility] ClinicStart: 08-15-2023 End: 70-53-1759cyvfuhmpwbCezzuwmq Ball Other noVuCOMP Other Start: 09-52-3994Hpnrqht evaluation of patient and reportBenoni ArevaloG [facility] ClinicStart: 08-05-2023 End: 20-27-4793kqdftzfhaxTntvvklu Ball Other [employer] Other Start: 04-52-6316Ejxkptpnv encounterBenoni ArevaloG [facility] ClinicStart: 06-26-2023 End: 20-70-7848gzpsgpsrryKni/[place] Work Phone: Hematology/OncologyComment on above:Anemia of chronic renal failure, stage 3b (HCC) (Primary Dx)Start: 80-13-8893Imkczopjh encounter Laurita Brady RNHematology/OncologyComment on above:OrdersStart: 06-18-2023 End: 68-17-4301gkiqbtgxhlOfjvkxtf Ball Other [employer] Other Start: 37-66-0275Wovkyh outpatient visit 25 minutes Alex Mervin [facility] ClinicStart: 06-12-2023 End: 97-82-3249vbaydsrtdkIbpkq Dolores Other [employer] Other Start: 68-98-3815Eqpgviqtp encounterAbdul QadirFPG NephrologyStart: 06-09-2023 End: 94-89-8249ozbgndyawyUfyipxta Ball Other [employer] Other Start: 03-21-0338Shiaocgjy encounterBenjamin BallFPG [facility] ClinicStart: 05-29-2023 End: 95-69-0335rdqgpsrvugRefmz Dolores Other [place] Other Start: 98-71-4449Qfbjbq outpatient visit 25 minutes Mir QadirFPG NephrologyStart: 05-15-2023 End: 76-88-1124inunyvzgrvZriyvkoy Ball Other noBufys Other Start: 33-52-7507Wgynlyzns encounterBenoni Nix Medical ClinicStart: 05-02-2023 End: 82-63-3558ufnpbmrquoIfilwukq Ball Other [facility] [place] Other Start: 20-95-3695Pbyafulwt encounterBewendyoni Nix Medical ClinicStart: 05-01-2023 End: 16-73-8031qudjyfqdsxVxjan R Murphy MD Work Phone: Hematology/OncologyComment on above:Anemia of chronic renal failure, stage 3b (HCC) (Primary Dx); Chronic renal impairment, stage 3b (HCC); History of iron deficiency; Primary osteoarthritis involving multiple joints; Essential hypertensionStart: 05-01-2023 End: 26-37-9370Ymazrzp encounter procedureAtif Yousif MD Work Phone: SANDUSKYStart: 03-20-2023 End: 01-92-2945lrpsqrhtucTiy/[place] Work Phone: Hematology/OncologyComment on above:Anemia of chronic renal failure, stage 3b (HCC) (Primary Dx)Start: 03-18-2023 End: 55-63-3535buusbhhkilXmqiexrs Ball Other noEdtrips [place] Other Start: 56-53-3327Tvtelv outpatient visit 25 minutes Alex Mervin [facility] ClinicStart: 03-04-2023 End: 74-33-7382jtlwgazunjOW ALEX BALLFacility:B0Eyibs: 02-24-2023 End: 98-33-5239wwjwvgprllWubsauvv Ball Other [employer] Other Start: 06-53-0904Ziiuddwfp encounterBenjamin BallFPG [facility] ClinicStart: 02-17-2023 End: 50-38-7505bxpvsvhugiKizcyrgh Ball Other [employer]ps [place] Other Start: 11-60-5251Injtct outpatient visit 15 minutes Alex BallFPG [facility] ClinicStart: 94-30-1399Yinfonzrr encounterBenjamin BallFPG [facility] ClinicStart: 02-13-2023 End: 92-63-4900dirfshrwutAyismfba Ball Other [employer]Edtrips [place] Other Start: 28-59-8712Xztgdbxgk encounterBenjamin BallFPG [facility] ClinicStart: 02-12-2023 End: 02-65-9924xxoilgflemJL ALEX BALLFacility:C6Axasz: 02-06-2023 End: 23-89-1542leqnusiyifMbm/[place] Work Phone: Hematology/OncologyComment on above:Anemia of chronic renal failure, stage 3b (HCC) (Primary Dx)Anemia of chronic renal failure, stage 3b (HCC) (Primary Dx); Chronic renal impairment, stage 3b (HCC); History of iron deficiencyStart: 02-06-2023 End: 30-63-8022Euapnei encounter Vel Yousif MD Work Phone: SANDUSKYStart: 01-31-2023 End: 61-29-1189uxbfjtfqfrOoxfnpnx Ball Other [employer] [place] Other Start: 49-58-3924Mnjianhke encounterBenjamin BallFPG [facility] ClinicStart: 01-27-2023 End: 21-65-2846mmclcdrvlhUbdrj Dolores Other [employer] [place] Other Start: 12-29-2625Wmwikoqem encounterAbdpedro Lizarraga [facility] ClinicStart: 12-26-2022 End: 61-77-0595Tgof Irma Holden [facility] Start: 12-25-2022 End: 75-85-0655rhcchlmetdFhu/[place] Work Phone: Hematology/OncologyComment on above:Anemia of chronic renal failure, stage 3b (HCC) (Primary Dx)Start: 12-16-2022 End: 16-71-7531wprxaqpephAvkcfyjm Dinah Other [employer] [place] Other Start: 38-03-8107Rrdloq outpatient visit 25 minutes Alex N[facility] Medical ClinicStart: 12-11-2022 End: 47-13-2368hxpxcjqigcBV ALEX NIXFacility:K6Lfxoc: 11-27-2022 End: 36-72-8408wchocdkfgmHszot Dolores Other [facility] [place] Other Start: 28-48-7346Ehjwdh outpatient visit 25 minutes Mir QadirFPG NephrologyStart: 11-18-2022 End: 48-90-7747yhjhsbpabcPOFeliz NIXFacility:Z5Tofid: 11-11-2022 End: 57-51-8558tapkshfpodFbezs R Murphy MD Work Phone: Hematology/OncologyComment on above:Anemia of chronic renal failure, stage 3b (HCC) (Primary Dx); Chronic renal impairment, stage 3b (HCC); History of iron deficiencyStart: 11-11-2022 End: 69-68-7175Uilahgs encounter procedureAtif Yousif MD Work Phone: SANDUSKYStart: 10-10-2022 End: 89-21-5746Mmyk ManagementZachary Zumbar [facility] Start: 09-16-2022 End: 65-42-3973lvqptztngdDsp/[place] Work Phone: Hematology/OncologyComment on above:Anemia of chronic renal failure, stage 3b (HCC) (Primary Dx)Anemia of chronic renal failure, stage 3b (HCC) (Primary Dx); Iron deficiency anemia due to chronic blood loss; Primary osteoarthritis involving multiple joints; Essential hypertensionStart: 09-16-2022 End: 33-35-0675Hwecxva encounter Sofia Schmid APRN.CNP Work Phone: SANDUSKYStart: 74-88-9483Dxcbw health examination Alex Nix Other [employer] Other Start: 07-08-2022 End: 41-84-5902bpujoexowqEmigy R Murphy MD Work Phone: Hematology/OncologyComment on above:Anemia of chronic renal failure, stage 3b (HCC) (Primary Dx); Chronic renal impairment, stage 3b (HCC); Iron deficiency anemia due to chronic blood lossStart: 07-08-2022 End: 88-08-5543Cawdszn encounter Vel Yousif MD Work Phone: SANDUSKYStart: 06-20-2022 End: 94-62-7201Bmjs ManagementZachary Zumbar [facility] Start: 06-04-2022 End: 71-81-3705fxhwbhdmftZG ALEX NIXFacility:P1Sfbin: 05-21-2022 End: 42-23-1025kbjmwqanydEapgo Dolores Other [employer] Other Start: 64-37-1774Qflumo outpatient visit 15 minutes Mir QadirFPG NephrologyStart: 05-15-2022 End: 89-74-8366nnrtapcjjjCW BENJAMIN BALLFacility:S8Jdxyt: 05-15-2022 End: 00-78-0480nkvjsuonztCBFeliz NIXFacility:N8Evhgg: 11-43-5612eeiavyogke DR ALEX Teresacility:Q0Lyrtd: 05-02-2022 End: 14-30-3083HkwuSan Joaquin [facility] Start: 04-15-2022 End: 21-12-2064uqmqbzgdduGtr/[place] Work Phone: Hematology/OncologyComment on above:Anemia of chronic renal failure, stage 3b (HCC) (Primary Dx)Anemia of chronic renal failure, stage 3b (HCC) (Primary Dx); Chronic renal impairment, stage 3b (HCC); Iron deficiency anemia due to chronic blood loss; Primary osteoarthritis involving multiple joints; Essential hypertensionStart: 04-15-2022 End: 06-15-2379Ohnvdlw encounter Vel Yousif MD Work Phone: SANDUSKYStart: 84-57-5391Uzoshmipj encounterAtif Yousif MD Work Phone: Hematology/OncologyComment on above:Lab OrdersStart: 02-28-2022 End: 73-12-4797nluvideszjNvg/[place] Work Phone: Hematology/OncologyComment on above:Anemia of chronic renal failure, stage 3b (HCC) (Primary Dx)Start: 2022 End: 11-61-2320jzynhomlllAluaq R Murphy MD Work Phone: Hematology/OncologyComment on above:Anemia of chronic renal failure, stage 3b (HCC) (Primary Dx); Chronic renal impairment, stage 3b (HCC); Iron deficiency anemia due to chronic blood loss; Primary osteoarthritis involving multiple joints; Essential hypertensionStart: 2022 End: 49-42-5801Lpnvxzy encounter Vel Yousif MD Work Phone: sandUSKYStart: 01-15-2022 End: 64-90-2769aglbmphgrtUqwij Dolores Other [employer] Other Start: 86-69-3867Pmhvtq outpatient visit 25 minutes Mir QadirFPG NephrologyStart: 16-13-3607Lpxlfzssk encounterAbdul QadirFPG NephrologyStart: 12-20-2021 End: 93-13-9675iqqzeczxgjYonbn Dolores Other [employer] [place] Other Start: 16-02-3955Tuncvvzmi encounterAbdul QadirFPG NephrologyStart: 10-16-2021 End: 19-27-9030mrbylgqmpyXlxwa Dolores Other [employer] Other Start: 57-02-1696Scupyx outpatient visit 25 minutes Mir QadirFPG Nephrology Procedures DateProcedureProcedure DetailPerforming ClinicianStart: 01-21-2025 End: 15-86-8290Zzkqy medical xm&eval kellye new pt 1/> vstBasal cell carcinoma (BCC) of right lower eyelidJonaseemkorin Roxana Enmanuel DO Work Phone: comment on above:Basal cell carcinoma (BCC) of right lower eyelid (Primary Dx); Malignant neoplasm of skin of eyelid, including canthus; Hemorrhage of eyelidStart: 37-56-0365timybwrnzjujrv epidural steroid injection 1 [employer] comment on above:right L2,3,4 TFESI- 50% relief x 2 days back pain, 100% relief of right leg pain to presentStart: 16-41-8657Vauqq Transformanial epidural steroid injection 2ZaAmerican [employer] comment on above:right L3, L4 L5 0% reliefStart: 36-27-8061Aygcn transforaminal epidural steroid injection L3-L4-L5 3Za[employer] comment on above:100% relief from leg pain but still haslow back pain when standingStart: 66-95-8688Vdlbbt piriformis muscle (body structure)MikeyAmerican Hometec comtxds on above:right 100% RELIEFStart: 03-13-2016 Selective Nerve Root Block 5[employer] comment on above:Right SNRB L3,L4,L5 60 % relief afer 10 daysStart: 91-24-7318Dp. Transforaminal Epidural Steroid Injection 6Za[employer] comoiwb on above:L3, L4, L5--60% reliefStart: 59-17-3009Ocmsk Transforaminal Epidural Steroid Injection 7ZaKloudNationry yWorld comment on above:V4-U3-E0Sdvlw: 09-09-2014 TRANSFORAMINAL EPIDURAL STEROID 8Za[employer] comment on above:RIGHT L3+4+5 TFESIStart: 05-25-2014 Epidural injection of lumbar spine using fluoroscopic guidanceUltracell comynwh on above:L5-S1 ESIStart: 50-21-6517Rtotgfjuc of sacroiliac joint using fluoroscopic guidanceUltracell comihwp on above:BILAT SIJIStart: 06-13-7606Xgtukilf injection of lumbar spine using fluoroscopic guidanceZaKloudNationry [employer] comment on above:L5-S1 ESIStart: 26-05-6018Hrqsbbm examination of patientBenjamin Ball Other Start: 05-18-0288Dnfgzzoq injection of lumbar spine using fluoroscopic guidanceZaKloudNationry [employer] comjidw on above:L5-S1 ESIStart: 48-13-5655Xekoxdiao of steroid into shoulder jointZaAmerican Hometec comnhxr on above:BILATStart: 18-55-6417Zoizo anesthetic sacral epidural blockXimenacleveland clinic lutheran hospitallauren Hloden comment on above:W/ CATHStart: 30-01-6714XKDUCYTBRPEHDD EPIDURAL STERIOD IN JECTION 15Mikey Holden comdkfp on above:RIGHT L3+4+5 TFESIStart: 09-16-2012 TRANSFORAMINAL EPIDURAL STERIOD INJECTION 16Mikey Holden comexkf on above:RIGHT L3+4+5 TFESIBACK SURGERY 17 Mikey Holden comment on above:2005Depression screeningBenjamin Ball Other HysterectomyZacleveland clinic lutheran hospitallauren Pileus Softwareandres Total knee replacementXimenacleveland clinic lutheran hospitallauren Pileus Softwareandres comqops on above:LEFT 11/2010 Plan of Treatment DateCare ActivityDetailAuthorStart: 58-22-1766Shetgsey ScreeningDiabetes ScreeningParkview Health Bryan Hospitaltart: 83-21-4214Tuwflnap ScreeningDiabetes Screening [facility] Hospitaltart: 00-72-5636Omxoofit ScreeningDiabetes ScreeningParkview Health Bryan Hospitaltart: 43-21-1131Hanqodhy ScreeningDiabetes ScreeningLake [facility] Start: 09-37-4005Snyxdekl ScreeningDiabetes ScreeningParkview Health Bryan Hospitaltart: 86-88-2284JTQIMTCK SCREENDIABETES SCREENParkview Health Bryan Hospitaltart: 05-01-2026 DIABETES SCREENDIABETES SCREENParkview Health Bryan Hospitaltart: 62-03-4866AFCFSDEO SCREEN DIABETES SCREENParkview Health Bryan Hospitaltart: 11-16-2025 End: 00-10-8229TYE W Auto Differential panel - BloodCOMPLETE BLOOD COUNT AND DIFFERENTIAL Lab Routine Iron deficiency Chronic renal impairment, stage 3 (moderate), unspecified whether stage 3a or 3b CKD (HCC) Type 2 diabetes mellitus without complication, without long-term current use of insulin (HCC) Crohn's disease without complication, unspecified gastrointestinal tract location (HCC) Type 2 diabetes mellitus with hyperglycemia, with long-term c urrent use of insulin (HCC) Anemia, unspecified type Expected: 11/16/2025, Expires: 02/15/2026[facility] Work Phone: Comment on above:Expected: 11/16/2025, Expires: 02/15/2026Start: 11-16-2025 End: 59-53-1614Dnxanodksbblm metabolic 2000 panel - Serum or PlasmaCOMPREHENSIVE METABOLIC PANEL Lab Routine Iron deficiency Chronic renal impairment, stage 3 (moderate), unspecified whether stage 3a or 3b CKD (HCC) Type 2 diabetes mellitus without complication, without long-term current use of insulin (HCC) Crohn's disease without complication, unspecified gastrointestinal tract location (HCC) Type 2 diabetes mellitus with hyperglycemia, with long-term current use of insulin (HCC) Anemia, unspecified type Expected: 11/16/2025, Expires: 02/15/2026[facility] HospitalComment on above:Expected: 11/16/2025, Expires: 02/15/2026Start: 11-16-2025 End: 39-85-0175Qwvibkye [Mass/volume] in Serum or PlasmaFERRITIN Lab Routine Iron deficiency Chronic renal impairment, stage 3 (moderate), unspecified wheth er stage 3a or 3b CKD (HCC) Type 2 diabetes mellitus without complication, without long-term current use of insulin (HCC) Crohn's disease without complication, unspecified gastrointestinal tract location (HCC) Type 2 diabetes mellitus with hyperglycemia, with long-term current use of insulin (HCC) Anemia, unspecified type Expected: 11/16/2025, Expires: 02/15/2026[facility] Comment on above:Expected: 11/16/2025, Expires: 02/15/2026Start: 11-16-2025 End: 73-54-7807Kagz and Iron binding capacity panel - Serum or PlasmaIRON AND TIBC Lab Routine Iron deficiency Chronic renal impairment, stage 3 (moderate), unspecifiedwhether stage 3a or 3b CKD (HCC) Type 2 diabetes mellitus without complication, without long-term current use of insulin (HCC) Crohn's disease without complication, unspecified gastrointestinal tractlocation (HCC) Type 2 diabetes mellitus with hyperglycemia, with long-term current use of insulin (H CC) Anemia, unspecified type Expected: 11/16/2025, Expires: 02/15/2026leveland ClinicComment on above:Expected: 11/16/2025, Expires: 02/15/2026Start: 11-14-2025 End: 04-02-4827Uadhjg-up akoooskmu13/26/2026 2:30 PM EST Visit (SP) Office Hematology/Oncology [address] [place], [place] [phone] Maranda Schmid APRN.COMPUTER NUMERIC CONTROL SETTER [address] [place] [address] 6 month follow up labHematology/OncologyComment on above:6 month follow up labStart: 11-14-2025 End: 37-79-4546Fkqunhl encounter oiwvsmwia69/26/2026 2:15 PM EST Office Visit [facility] [address] [place] [address] 6 month follow up labNortPine Rest Christian Mental Health Services LaboratoryComment on above:6 month follow up labStart: 66-05-8783KJTNYYHM SCREEN DIABETES SCREENParkview Health Bryan Hospitaltart: 10-07-2025 End: 92-66-0802Vcmxdvl encounter /19/2025 11:15 AM EST Procedure Visit [facility] [address] [place] [id number] Chantal Ward, GEARRDM [address] [place] [address] [facility] PodiatryStart: 09-16-2025 DIABETES SCREENDIABETES SCREENParkview Health Bryan Hospitaltart: 08-05-2025 End: 26-02-7290Dogdjpe encounter ssipqddqr80/17/2025 11:15 AM EDT Procedure Visit [facility] [address] [place] [phone] Chantal Ward, DPM [address] [place] [address] FRANCISCO JAVIERJean Chiu PodiatryStart: 07-08-2025 DIABETES SCREENDIABETES SCREENParkview Health Bryan Hospitaltart: 32-42-8969Vmektdhim vaccinationInfluenza Vaccine (#1)[facility] Hospitaltart: 05-27-2025 End: 11-41-8460Tdplxtm encounter procedureNOMS WWW PODIATRYComment on above: ArrivedStart: 05-16-2025 End: 50-41-6628Ernsvs-up addvfbsvo93/28/2025 2:30 PM EDT Visit (SP) Office Hematology/Oncology [address] [place], [place] [phone] Maranda Schmid APRN.COMPUTER NUMERIC CONTROL SETTER [address] [place] [address] 12 week follow up labHematology/OncologyComment on above:12 week follow up labStart: 05-16-2025 End: 45-93-5918Pfkcjpf encounter imrgeptyz86/28/2025 2:15 PM EDT Office Visit [facility] [address] [place] [address] 12 week follow up labNortPine Rest Christian Mental Health Services LaboratoryComment on above:12 week follow up labStart: 05-09-2025 End: 29-97-8621BVU W Auto Differential panel - BloodCOMPLETE BLOOD COUNT AND DIFFERENTIAL Lab Routine Iron deficiency Chronic renal impairment, stage 3 (moderate), unspecified whether stage 3a or 3b CKD (HCC) Expected: 05/09/2025, Expires: 08/08/2025[facility] Work Phone: Comment on above:Expected: 05/09/2025, Expires: 08/08/2025Start: 05-09-2025 End: 82-43-7491Mpfdbwtevmhsx metabolic 2000 panel - Serum or PlasmaCOMPREHENSIVE METABOLIC PANEL Lab Routine Iron deficiency Chronic renal impairment, stage 3 (moderate), unspecified whether stage 3a or 3b CKD (HCC) Expected: 05/09/2025, Expires: 08/08/2025[facility] HospitalComment on above:Expected: 05/09/2025, Expires: 08/08/2025Start: 05-09-2025 End: 63-86-0185Nrlpihuf [Mass/volume] in Serum or PlasmaFERRITIN Lab Routine Iron deficiency Chronic renal impairment, stage 3 (moderate), unspecified wheth er stage 3a or 3b CKD (HCC) Expected: 05/09/2025, Expires: 08/08/2025[facility] ClinicComment on above:Expected: 05/09/2025, Expires: 08/08/2025Start: 05-09-2025 End: 06-65-7068Hudg and Iron binding capacity panel - Serum or PlasmaIRON AND TIBC Lab Routine Iron deficiency Chronic renal impairment, stage 3 (moderate), unspecifiedwhether stage 3a or 3b CKD (HCC) Expected: 05/09/2025, Expires: 08/08/2025[facility] ClinicComment on above:Expected: 05/09/2025, Expires: 08/08/2025Start: 02-92-7697VCJCDJIT SCREENDIABETES SCREENFlower Hospitalveland ClinicStart: 04-06-2025 End: 39-68-9357Tblyehm encounter yrtgjnkvd97/18/2025 2:00 PM EDT Office Visit [facility] [address] [place] [address] 6 week repeat labNortPine Rest Christian Mental Health Services LaboratoryComment on above:6 week repeat labStart: 03-31-2025 End: 39-52-3207EFP W Auto Differential panel - BloodCOMPLETE BLOOD COUNT AND DIFFERENTIAL Lab Routine Iron deficiency anemia due to chronic blood loss C hronic renal impairment, stage 3 (moderate), unspecified whether stage 3a or 3b CKD (HCC) Iron deficiency Expected: 03/31/2025, Expires: 06/30/2025[facility]and [facility] Work Phone: Comment on above:Expected: 03/31/2025, Expires: 06/30/2025Start: 03-25-2025 End: 32-36-7644Kzxuadw encounter qaesvjgvp15/06/2025 11:00 AM EDT Procedure Visit [facility] [address] [place] [address] Chantal Ward, DPM [address] [place] [address] [facility] WWW PODIATRYStart: 03-15-2025 End: 56-51-6665Rbttdn-up encounterHematology/OncologyComment on above:3 week follow up with lab and possible aranespStart: 03-15-2025 End: 15-19-0303Kmcrecg encounter /27/2025 10:15 AM EDT Office Visit [facility] [address] [place] [address] 3 week follow up with lab and possible aranespNorth University Of [facility] Health LaboratoryComment on above:3 week follow up with lab and possible aranespStart: 03-03-2025 End: 22-47-7556Rrilsr-up pgnpqfqid03/15/2025 2:20 PM EDT Visit (SP) Office Hematology/Oncology [address] [place] [phone] Atif Yousif MD [address] [place] [address] 6 month follow upHematology/OncologyComment on above:6 month follow upStart: 03-03-2025 End: 58-69-1539Kmjgwkj encounter fturumsuk71/15/2025 2:00 PM EDT Office Visit [facility] [address] [place], [place] [address] [address] 6 month follow upNortPine Rest Christian Mental Health Services LaboratoryComment on above:6 month follow upStart: 03-02-2025 End: 45-12-0955MIG W Auto Differential panel - BloodCOMPLETE BLOOD COUNT AND DIFFERENTIAL Lab Routine Iron deficiency Chronic renal impairment, stage 3 (moderate), unspecified whether stage 3a or 3b CKD (HCC) Iron deficiency anemia due to chronic blood loss Type 2 diabetes mellitus without complication, without long-term current use of insulin (HCC)Crohn's disease without complication, unspecified gastrointestinal tract location (HCC) Expected: 03/02/2025, Expires: 06/01/2025[facility] Work Phone: Comment on above:Expected: 03/02/2025, Expires: 06/01/2025Start: 03-02-2025 End: 90-83-7733Gchrkvagzjtmw metabolic 2000 panel - Serum or PlasmaCOMPREHENSIVE METABOLIC PANEL Lab Routine Iron deficiency Chronic renal impairment, stage 3 (moderate), unspecified whether stage 3a or 3b CKD (HCC) Iron deficiency anemia due to chronic blood loss Type 2 diabetes mellitus without complication, without long-term current use of insulin (HCC) Crohn'sdisease without complication, unspecified gastrointestinal tract location (HCC) Expected: 03/02/2025, Expires: 06/01/2025[place] ClinicComment on above:Expected: 03/02/2025, Expires: 06/01/2025Start: 03-02-2025 End: 81-16-3791Mtrmroll [Mass/volume] in Serum or PlasmaFERRITIN Lab Routine Iron deficiency Chronic renal impairment, stage 3 (moderate), unspecified wheth er stage 3a or 3b CKD (HCC) Iron deficiency anemia due to chronic blood loss Type 2 diabetes mellitus without complication, without long-term current use of insulin (HCC) Crohn's disease without complication, unspecified gastrointestinal tract location (HCC) Expected: 03/02/2025, Ex[facility]: [facility] Comment on above:Expected: 03/02/2025, Expires: 06/01/2025Start: 03-02-2025 End: 04-93-9463Wobe and Iron binding capacity panel - Serum or PlasmaIRON AND TIBC Lab Routine Iron deficiency Chronic renal impairment, stage 3 (moderate), unspecifiedwhether stage 3a or 3b CKD (HCC) Iron deficiency anemia due to chronic blood loss Type 2 diabetes mellitus without complication, without long- term current use of insulin (HCC) Crohn's disease withoutcomplication, unspecified gastrointestinal tract location (HCC) Expected: 03/02/2025, Expires: 06/01/2025[place] ClinicComment on above:Expected: 03/02/2025, Expires: 06/01/2025Start: 03-01-2025 End: 46-11-8140kmfwnlwwhv79/13/2025 10:45 AM EDT [facility] Hematology/Oncology [address] [place] [address] lab and aranesp in 1 weekHematology/OncologyComment on above:lab and aranesp in 1 week Start: 03-01-2025 End: 58-33-4156Knoscqi encounter vkwaivmae06/13/2025 10:30 AM EDT Office Visit [facility] [address] [place] [address] lab and aranesp in 1 weekNortPine Rest Christian [facility] Health Services LaboratoryComment on above:lab and aranesp in 1 weekStart: 69-10-9500Ybcdk-19 Vaccine ( season)Covid-19 Vaccine ( season)[facility]: 37-55-7727GADDNJIJ SCREENDIABETES SCREENParkview Health Bryan Hospitaltart: 2025 End: 56-30-5837Zertqft encounter procedureNOMS NB OPHTComment on above:Arrived Start: 01-28-2025 End: 27-80-0667Oefkgzi encounter cpkrzmxsy74/11/2025 11:45 AM EDT Procedure Visit [facility] [address] [place] [phone] Belinda Marks, DO [address] [place] [address] [facility] OPHTStart: 01-21-2025 End: 28-23-1124Hkgzmsc encounter uqfmgavxd09/04/2025 11:00 AM EDT Office Visit [facility] [address] [place] [phone] Belinda Marks DO [address] [place] [address] [facility] NB OPHTStart: 01-20-2025 End: 47-03-4288Czkzqqs encounter procedureNOMS WWW PODIATRYComment on above: ArrivedStart: 11-18-2024 End: 45-50-0028Lyecaal encounter procedureNOMS WWW PODIATRYComment on above: ArrivedStart: 62-53-9597Aeoegag Directive DiscussionAdvance Directive Discussion [facility]: 09-13-2024 End: 60-84-5429Esciqpr encounter procedureNOMS WWW PODIATRYComment on above: ArrivedStart: 09-02-2024 End: 24-37-3409Bpneijg encounter /14/2024 2:45 PM EST Office Visit [facility] [address] [place] [address] 6 month follow upNortPine Rest [facility] Health Services LaboratoryComment on above:6 month follow upStart: 09-02-2024 End: 34-84-8264Arysq metabolic 2000 panel - Serum or PlasmaBASIC METABOLIC PANEL Lab Routine Anemia of chronic renal failure, stage 3b (HCC) (HCC) Expected: , Expires: 12/02/2024[facility] ClinicComment on above:Expected: 09/02/2024, Expires: 12/02/2024Start: 09-02-2024 End: 99-14-4777VIJ W Auto Differential panel - BloodCOMPLETE BLOOD COUNT AND DIFFERENTIAL Lab Routine Anemia of chronic renal failure, stage 3b (HCC) (HCC) Expected: 09/02/2024, Expires: 12/02/2024[facility] Work Phone: Comment on above:Expected: 09/02/2024, Expires: 12/02/2024Start: 09-02-2024 End: 50-12-5311Vottpm-up encounterHematology/OncologyComment on above:6 month follow upStart: 09-02-2024 End: 36-44-5204Scdwbqu encounter spcfyxiby23/14/2024 1:30 PM EST Office Visit [facility] [address] [place] [address] 6 month follow upNortPine Rest [facility] Health Services LaboratoryComment on above:6 month follow upStart: 07-09-2024 End: 96-16-0574Gqesccp encounter csdddfnqy84/20/2024 11:00 AM EDT Procedure Visit [facility] [address] [place] [phone] Chantal Ward DPM [address] [place] [address] ArrivedNOMS WWW PODIATRYComment on above: ArrivedStart: 12-85-5874Cyzwu-19 Vaccine ( season)Covid-19 Vaccine ()[facility]: 25-22-1225Ovlsircse vaccination Influenza Vaccine (#1)[facility]: 02-26-2024 End: 42-74-5304Pdxhlkiern A1c in BloodU[facility] Medical Center Work Phone: Comment on above:Expected: 02/26/2024, Expires: 05/27/2024Start: 02-05-2024 End: 13-34-1911Snbbiht encounter tinmsjebl65/18/2024 10:30 AM EDT Procedure Visit [facility] [address] [place] [phone] Chantal Ward DPM [address] [place] [address] N[facility] WWW PODIATRYStart: 91-30-6375Crmguem Directive DiscussionAdvance Directive DiscussionParkview Health [facility] Hospitaltart: 77-65-1744Djzqkdqkrn Health ScreeningBehavioral Health ScreeningLake County Memorial [facility] Start: 48-69-7863Hfuwk-19 Vaccine ( season)Covid-19 Vaccine ()[facility]: 64-37-8053Ukaselmxz vaccinationParkview Health Bryan Hospitaltart: 05-01-2023 End: 47-96-4365Taurzvjd [Mass/volume] in Serum or PlasmaUc Medical Center Work Phone: Comment on above:Expected: 05/01/2023, Expires: 07/01/2023Start: 05-01-2023 End: 20-76-3323Uwtq and Iron binding capacity panel - Serum or PlasmaUc Medical Center Work Phone: Comment on above:Expected: 05/01/2023, Expires: 07/01/2023Start: 29-76-4979PVQMT-19 VACCINE (6 - Moderna series)COVID-19 VACCINE (6 - Moderna series)[facility]: 11-11-2022 End: 56-91-1990LDF W Auto Differential panel - BloodCBC + DIFF Lab Routine Anemia of chronic renal failure, stage 3b (HCC) 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 Essential hypertension Expected: 11/11/2022, Expires: 01/11/2023[facility] Work Phone: Comment on above:Expected: 11/11/2022, Expires: 01/11/2023Start: 11-11-2022 End: 43-02-1467Fcztfrshtibfz metabolic 2000 panel - Serum or PlasmaCOMP METABOLIC PANEL Lab Routine Anemia of chronic renal failure, stage 3b (HCC) 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 Essential hypertension Expected: 11/11/2022, Expires: 01/11/2023 [facility] Work Phone: Comment on above:Expected: 11/11/2022, Expires: 01/11/2023Start: 05-23-1627JFNFOCY DIRECTIVE DISCUSSIONADVANCE DIRECTIVE DISCUSSIONParkview Health Bryan Hospitaltart: 13-48-0187DMKVEAWWJZ ASSESSMENTDEPRESSION ASSESSMENTParkview Health Bryan Hospitaltart: 81-84-0037Opcdkqlie vaccinationINFLUENZA (#1) [facility]: 04-11-2022 End: 89-15-1423UIV W Auto Differential panel - BloodCBC + DIFF Lab Routine Iron deficiency Expected: 04/11/2022, Expires: 06/11/2022[facility] Work Phone: Comment on above:Expected: 04/11/2022, Expires: 06/11/2022tart: 04-11-2022 End: 99-19-7828Ncsrpkquzpqnc metabolic 2000 panel - Serum or PlasmaCOMP METABOLIC PANEL Lab Routine Iron deficiency Expected: 04/11/2022, Expires: 06/11/2022[facility] Work Phone: Comment on above:Expected: 04/11/2022, Expires: 06/11/2022tart: 04-11-2022 End: 62-89-4768Fkirsebz [Mass/volume] in Serum or PlasmaFERRITIN BLD Lab Routine Iron deficiency Expected: 04/11/2022, Expires: 06/11/2022[facility] Work Phone: Comment on above:Expected: 04/11/2022, Expires: 06/11/2022tart: 04-11-2022 End: 87-76-0856Dvzf and Iron binding capacity panel - Serum or PlasmaIRON + TIBC Lab Routine Iron deficiency Expected: 04/11/2022, Expires: 06/11/2022[facility] Work Phone: Comment on above:Expected: 04/11/2022, Expires: 06/11/2022tart: 02-28-2022 End: 69-92-7659CSD W Auto Differential panel - BloodCBC + DIFF Lab Routine Anemia of chronic renal failure, stage 3b (HCC) Expected: 02/28/2022, Expires: 04/30/2022[facility] Work Phone: Comment on above:Expected: 02/28/2022, Expires: 04/30/2022tart: 10-54-5183POXAP-19 VACCINE (4 - Booster for Moderna series) COVID-19 VACCINE (4 - Booster for Moderna series)[facility]: 10-68-9877AFUBQFX DIRECTIVE DISCUSSIONADVANCE DIRECTIVE DISCUSSIONParkview Health Bryan Hospitaltart: 51-80-1150LMPHAMTLTT ASSESSMENTDEPRESSION ASSESSMENTCleKindred Hospital Limatart: 07-01-6231Svnzhagtnrzr Vaccine: 65+ Years (2 - PCV)Pneumococcal Vaccine: 65+ Years (2 - PCV)[facility] CenterStart: 66-20-0063Usvbrucnayxr Vaccine: 65+ Years (2 of 2 - PCV)Pneumococcal Vaccine: 65+ Years (2 of 2 - PCV) [facility] CenterStart: 70-66-4858KGDH DENSITYBONE DENSITYParkview Health Bryan Hospitaltart: 54-07-6366Vdtkvznyw for osteoporosisBone Density ScreeningParkview Health Bryan Hospitaltart: 04-01-2005Medicare Annual Wellness VisitMedicare Annual Wellness VisitParkview Health Bryan Hospitaltart: 54-30-7015YSOUVAJOL B (1 of 3 - Risk 3-dose series)HEPATITIS B (1 of 3 - Risk 3-dose series)[facility]: 64-21-3950Hbgitgrxk B Vaccine (1 of 3 - Risk 3-dose series)Hepatitis B Vaccine (1 of 3 - Risk 3-dose series) [facility]: 99-22-9076NCUYTKMF VACCINE (1 of 2)SHINGRIX VACCINE (1 of 2)[facility]: 09-51-8418HYGXRARHH A (1 of 2 - Risk 2-dose series) HEPATITIS A (1 of 2 - Risk 2-dose series)[facility]: 02-06-1959 Hepatitis A Vaccine (1 of 2 - Risk 2-dose series)Hepatitis A Vaccine (1 of 2 - Risk 2-dose series)[facility]: 10-26-8426RNBSCTZOQ B (1 of 3 - Risk 3-dose series)HEPATITIS B (1 of 3 - Risk 3-dose series)[facility]: 26-28-4256YCVFJRSU VACCINE (1 of 2)SHINGRIX VACCINE (1 of 2)[facility] Start: 42-28-5880Rzube microalbumin profileCleKindred Hospital Limatart: 02-06-1958 Anxiety ScreeningAnxiety ScreeningParkview Health Bryan Hospitaltart: 84-13-3318Pmlaeuvpjz ScreeningDepression ScreeningParkview Health Bryan Hospitaltart: 61-19-3369GCQ (1 of 2 - Risk 2-dose series)MMR (1 of 2 - Risk 2-dose series)[facility]: 07-25-4373IDO Vaccine (1 of 2 - Risk 2-dose series)MMR Vaccine (1 of 2 - Risk 2- dose series)[facility]: 53-35-1913Nsgklyhylqgzg B Vaccine: Consider Based On Risk (1 of 4 - Increased Risk)Meningococcal B Vaccine: Consider Based On Risk (1 of 4 - Increased Risk)[facility]: 42-04-1174WMZIBYCBSLRNR B: Consider based on risk (1 of 4 - Increased Risk Bexsero 2-dose series) MENINGOCOCCAL B: Consider based on risk (1 of 4 - Increased Risk Bexsero 2-dose series)[facility]: 45-28-1586GYGAAENYEYIFG B: Consider based on risk (1 of 4 - Increased Risk)MENINGOCOCCAL B: Consider based on risk (1 of 4 - Increased Risk)[facility]: 65-56-9518WRVHXMCOU A (1 of 2 - Risk 2- dose series)HEPATITIS A (1 of 2 - Risk 2-dose series)[facility] WestRenal function 1999 panel - Serum or PlasmaOhiohealth Van Wert HospitalRenal function 1999 panel - Serum or PlasmaRegional Hospital of Jackson Immunizations Immunization DateImmunizationNotesCare MsijrhidXvttzqbc13-33-8287pypjqozty virus vaccine, unspecified formulationChvesta Ward DPM Work Phone: [facility] CenterUsdmvxryty22-16-9977cbngnypat, high dose seasonal, preservative-freeOhiohealth Van Wert Hospital10-14-2024influenza virus vaccine, unspecified formulationPool Escobedo RNLake County Memorial Hospital - West 03-83-7462trzexwskj, high dose seasonal, preservative-freeAlex iNx Other [employer] Other 746570-93-2289giappjzja virus vaccine, unspecified formulationOhiohealth Van Wert Hospital10-21-2022influenza (aIIV4) vaccine, age 65+ yr, quadrivalent, PF (FLUAD QUADRIVALENT)Lab/[facility] Work Phone: [facility] - WestUcldrf01-13-9919nqrrzkinm virus vaccine, split virus (incl. purified surface antigen)Alex Nix Other noHoly [facility] [employer] Other 10766687-78-8542qbsaobzwt virus vaccine, unspecified formulationOhiohealth Van Wert Hospital05-20-2022SARS-CoV-2 (COVID-19) mRNA-1273 vaccineZachary Zumbar [facility] Selby General HospitalComment on above:Result Comment: 2022-05-02: WFU8167-89-6329VXGO-AvH-3 (COVID-19) mRNA-1273 vaccine Mikey Zumbar [facility] General HospitalComment on above:Result Comment: 2022-05-02: IHK1565-90-1987cyswenene nasal, unspecified formulation Lab/[facility] Work Phone: [facility] WestEswczt72-80-9777fysjcgwpa virus vaccine, unspecified formulationZawestlake regional hospital Zumbar [facility]10-28-2021influenza, high dose seasonal, preservative-Betty Yousif MD Work Phone: [facility] WestQrnfrb68-76-4515hfsswmpfg virus vaccine, split virus (incl. purified surface antigen)Alex Nix Other noHoly [facility] [employer] Other 10545278-02-7465rftsjkzcr virus vaccine, unspecified formulationOhiohealth Van Wert Hospital03-02-2021COVID-19 vaccine, full dose (MODERNA)Atif Yousif MD Work Phone: [facility] - WestQosuay03-31-3882ZZXVL-47 vaccine, full dose (MODERNA)Atif Yousif MD Work Phone: [facility] - WestYbnuxb82-15-1464qlozumvou, injectable, quadrivalent, preservative Betty Yousif MD Work Phone: [facility] WestPjekua29-80-2817knhkdwigi virus vaccine, split virus (incl. purified surface antigen)Alex Nix Other [employer] Other 10132401-35-1109arnwawnfn virus vaccine, unspecified formulationOhiohealth Van Wert Hospital10-23-2019influenza, injectable, quadrivalent, preservative Betty Yousif MD Work Phone: [facility] WestPriyaj17-31-0683jlwhvuvmi virus vaccine, split virus (incl. purified surface antigen)Alex Nix Other [facility] [employer] Other 10072534-56-9085oknkqjbxk virus vaccine, unspecified formulationOhiohealth Van Wert Hospital10-30-2018influenza nasal, unspecified formulationEllsworth [facility] Work Phone: [facility] WestMxqgky12-06-1630bszwhgvfu virus vaccine, unspecified formulationDow Amieumbsc [facility]10-30-2018influenza, injectable, quadrivalent, preservative Betty Yousif MD Work Phone: [facility] WestXjjjgk63-52-6927qfjlskbuv virus vaccine, split virus (incl. purified surface antigen)Alex Nix Other noHoly [facility] [employer] Other 10903437-35-1171qlnpegzuy virus vaccine, unspecified formulationOhiohealth Van [facility] Hospital10-16-2018Seasonal trivalent influenza vaccine, adjuvanted, preservative Betty Yousif MD Work Phone: [facility] WestItxawi27-44-0643ucvepfvcf, injectable, quadrivalent, preservative Betty Yousif MD Work Phone: [facility] WestFvqwbs28-81-6701dpyolyegl virus vaccine, split virus (incl. purified surface antigen)Alex Nix Other [employer] Other 10-126204-66-1926pghhqiqin virus vaccine, unspecified formulationOhiohealth Van Wert Hospital10-25-2017influenza, high dose seasonal, preservative-Betty Yousif MD Work Phone: [facility] WestAqibdw98-70-0834fffpdetdsqdl conjugate vaccine, 13 Faviola Yousif MD Work Phone: [facility] WestHgvwov68-92-2582lmswdavcgiwu Conjugate, unspecified formulation; Translations: [Need for prophylactic vaccination ag ainst Streptococcus pneumoniae (pneumococcus)]Alex Nix Other [employer] Other 10847402-20-6943tfvodmuwyjuc polysaccharide vaccine, 23 Faviola Yousif MD Work Phone: [facility] WestXbwrsp12-06-5672rrtqfuwik virus vaccine, split virus (incl. purified surface antigen)Alex Nix Other [employer] Other 10-778559-61-2515vjuchzqgn virus vaccine, unspecified formulationOhiohealth Van Wert Hospital10-14-2016influenza, high dose seasonal, preservative-Betty Yousif MD Work Phone: [facility] WestBtrcrw71-83-0479jxgsglmuy, injectable, quadrivalent, preservative Betty Yousif MD Work Phone: [facility] WestCcumhv75-43-3846sagcjmmcy, high dose seasonal, preservative-Betty Yousif MD Work Phone: [facility] WestHybecf05-94-3190iaoqujoiohac polysaccharide vaccine, 23 Vladimir Nix Other [facility] Payers DatePayer CategoryPayerPolicy [id number] [id number] Health Insurance [id number] Health Insurance [id number] 2005MedicareMEDICARE MEDICARE A AND B [id number] 2005-Present [phone] [facility] [address] [place] [address] [id number] 2005Medicare [id number] [id number] [id number] Health [id number] Brma-weh0[id number] 2.16.840.0.138883.72525732-24-7087Vnndmxc [id number] 2.840.1.018702.3.57[id number] 2.16840.1.915726.3.57[id number] 2.16.840.1.795953.3.57[id number] 2.16840.1.557021.3.57[id number] 2.16.840.1.458598.3.57[id number] 2.16840.1.626214.3.57[id number] 2.16840.1.827143.3.57[id number] 2.16.840.1.266059.3.57[id number] 2.16.840.1.656055.3.57[id number] 2.16.840.1.482897.3.57[id number] 2.16.840.1.845205.3.57[id number] 2.16.840.1.191787.3.57[id number] 2.16.840.1.373976.3.57[id number] 2.16.840.1.036392.3.57[id number] 2..840.1.570488.3.57[id number] 2.16.840.1.369276.3.57[id number] 2.16.840.1.289856.3.579.2.1259Mediuniversity hospitals parma medical centerMedicare [id number] 2.0.1.316705.3.579.2.593 Social History DateTypeDetailFacilityStart: 08-18-2014 End: 40-32-9423Vbazhcq smoking status NHISNever smoked tobaccoLake County Memorial Hospital - West Start: 08-18-2014 End: 50-31-7941Lezbtmp use and exposureSmokeless tobacco non-userParkview Health Bryan Hospitaltart: 2022 End: 81-93-4243Oxvsooh intakeCurrent drinker of alcohol (finding)[facility]tart: 15-90-1025Jontugr SDOH Alcohol CommentsociallyCtrinity health system Clinic Start: 32-89-9364Kvv Assigned At BirthNot on fileParkview Health Bryan Hospitaltart: 01-28-2022 End: 91-80-0243Yljeoqwn to SARS-CoV-2 (event)Not sureParkview Health Bryan Hospitaltart: 02-06-2023 End: 00-57-2114Ejh Assigned At [facility] [employer] Other Start: 06-08-2015 End: 67-42-9608Vszlghf smoking statusEx-smoker (finding)[facility] HospitalComment on above:Quit 50 years agoStart: 02-06-2023 End: 48-46-7997Yrpspsk of Social functionParkview Health Bryan Hospitaltart: 73-82-0655Ijneg Depression Screening Rfytiuqwnh4Hgfbrvoza ClinicStart: 08-18-2023 End: 45-50-1188Hqtszxx intakeLifetime non-drinker (finding)[facility] HealthcareStart: 80-44-4562Fed Assigned At [facility]: 12-29-2024 End: 78-70-6235MzmJrbljl (finding)[facility] Hospitalexual OrientationMemorial Health System Sel[facility] General Hospital NEGATED: Highlighted rowStart: NINFHistory of tobacco usePassive smokerLake County Memorial Hospital [facility] Medical Equipment Procedure CodeEquipment CodeEquipment Original TextEquipment IdentifierDates Start: 98-76-8767Rznigpc (Onetouch Delica Plus Lancet) 30 gauge miscStart: 34-95-1181Knlqy Sugar Diagnostic (Onetouch Ultra Test) stripStart: 02-18-2024 End: 31-01-5700Jppmk Sugar Diagnostic (Onetouch Ultra Test) stripStart: 02-18-2024 End: 91-83-2011Pebul Sugar Diagnostic (Onetouch Ultra Test) stripStart: 02-18-2024 End: 04-91-5260Qwrsrdn (Onetouch Delica Plus Lancet) 30 gauge miscStart: 82-83-7498Gevql Sugar Diagnostic (Onetouch Ultra Test) stripStart: 02-18-2024 End: 20-23-6012Yuoyw Sugar Diagnostic (Onetouch Ultra Test) stripStart: 02-18-2024 End: 74-97-5675Pdvet Sugar Diagnostic (Onetouch Ultra Test) stripStart: 02-18-2024 End: 30-47-1559Hkoeyxd (Onetouch Delica Plus Lancet) 30 gauge miscStart: 51-26-8741Poilf Sugar Diagnostic (Onetouch Ultra Test) stripStart: 02-18-2024 End: 34-43-6313Ycikx Sugar Diagnostic (Onetouch Ultra Test) stripStart: 02-18-2024 End: 39-12-1932Hzqff Sugar Diagnostic (Onetouch Ultra Test) stripStart: 02-18-2024 End: 96-83-9446Skqaopk (Onetouch Delica Plus Lancet) 30 gauge miscStart: 82-01-3980Havvb Sugar Diagnostic (Onetouch Ultra Test) stripStart: 02-18-2024 End: 51-17-4476Vllkk Sugar Diagnostic (Onetouch Ultra Test) stripStart: 02-18-2024 End: 95-62-8135Tfbaw Sugar Diagnostic (Onetouch Ultra Test) stripStart: 02-18-2024 End: 93-60-9756Vxzol Sugar Diagnostic (Onetouch Ultra Test) stripStart: 89-81-3281Kehqsve (Onetouch Delica Plus Lancet) 30 gauge miscStart: 06-24-2024 Pen Needle, Diabetic (Comfort Ez Pen [place]) 31 gauge x 1/4 needleStart: 55-80-3854Envqz Sugar Diagnostic (Onetouch Ultra Test) stripStart: 02-18-2024 End: 02-83-5525Hnjvo Sugar Diagnostic (Onetouch Ultra Test) stripStart: 04-15-2025 End: 08-17-8421Yquie Sugar Diagnostic (Onetouch Ultra Test) stripStart: 02-18-2024 End: 55-79-0870Hrvyy Sugar Diagnostic (Onetouch Ultra Test) stripStart: 02-18-2024 End: 48-80-7077Mztrq Sugar Diagnostic (Onetouch Ultra Test) stripStart: 25-46-9007Rrhfpgr (Onetouch Delica Plus Lancet) 30 gauge miscStart: 07-15-2025 Pen Needle, Diabetic (Comfort Ez Pen [place]) 31 gauge x 1/4 needleStart: 65-23-5049Ldksy Sugar Diagnostic (Onetouch Ultra Test) stripStart: 02-18-2024 End: 84-12-9215Lslst Sugar Diagnostic (Onetouch Ultra Test) stripStart: 04-15-2025 End: 96-41-5032Jhgjl Sugar Diagnostic (Onetouch Ultra Test) stripStart: 02-18-2024 End: 15-25-2661Jmaqu Sugar Diagnostic (Onetouch Ultra Test) stripStart: 02-18-2024 End: 20-27-9620Csegqld (Onetouch Delica Plus Lancet) 30 gauge miscStart: 06-24-2024 End: 07-15-2025 Functional Status ZknbTcwnhygyzwAdlufjNfjacsne79-12-6616Oqnzgjbgaw StatusN/[facility]12-22-2022Functional StatusN/[facility]09-01-2022 Functional StatusN/[facility]07-14-2022Functional StatusN/A [facility]12-11-2014Are you deaf, or do you have serious difficulty hearingNo 09/29/2014 2:17 PM Jennifer Hernandez [facility] 03-62-8426Snd you blind, or do you have serious difficulty seeing, even when wearing glassesNo 09/29/2014 2:17 PM Jennifer Hernandez [facility] 05-58-0248Mq you have serious difficulty walking or climbing stairsYes 09/29/2014 2:17 PM Jennifer Hernandez [facility]12-11-2014Do you have difficulty dressing or bathingYes 09/29/2014 2:17 PM Jennifer Hernandez [facility]healthTyhswm68-89-1545Wzaqyrv of a physical, mental, or emotional condition, do you have difficulty doing errands alone such as visiting a physician's office or shoppingYes 09/29/2014 2:17 PM Jennifer Hernandez [facility] Mental Status HneqAbtmjbwnlxUlfxqzBjlcgtal96-88-3161Looutrk of a physical, mental, or emotional condition, do you have serious difficulty concentrating, remembering, or making decisionsNo 09/29/2014 2:17 PM VIDA Jennifer Cifuentes [facility] Clinical Notes 10-16-2021 to 08-05-2025 Note Date & [id number] History of Present illness Narrative* Chantal Ward, JÚNIOR - 08/05/2025 11:15 AM EDT Subjective Patient ID: Henrietta Gross is a 85 y.o. female who presents for Toenail Care. HPI Tender callous Lft foot more than rt sub lisa History of Present Illness Diabetic/Routine Nail Care: Locationnails on bilateral feet. Severity of symptomsmild. Onsetgradual. Statusno change. Contexthard to trim, hard to reach. NAILSthickened, discolored, pain. Relieved bydebridement, filing down nails, clipping nails. History of ulcers/wounds no. PCP Dr Alex Nix Date of Last visit 07/06/2025 Aggravated byshoe gear, pressure. tender callus left more than right Blood sugar 103 ROS General: Chillsdenies. Feverdenies. Musculoskeletal: muscle weaknessdenies. Bone/joint symptomsdenies. Peripheral Vascular: Edemadenies. Hx of blood clots in legsdenies. Raynaud'sdenies. Rest pain denies. Ulceration of feetdenies. Varicose veinsdenies. Skin: Hyperpigmentationdenies. Nail changesdenies. Rashdenies. Skin lesion(s)denies. Neurologic: Gait abnormalitydenies. Tingling/Numbnessdenies. Current Medications Current Outpatient Medications: amLODIPine (Norvasc) 5 MG tablet, 1 (one) time each day at the same time, Disp: , Rfl: Calcium Carbonate-Vit D-Min (Calcium 600+D Plus Minerals) 600-400 MG-UNIT tablet, every 12 (twelve)hours, Disp: , Rfl: carvedilol (Coreg) 6.25 MG tablet, , Disp: , Rfl: cholecalciferol (KP Vitamin D) 25 MCG (1000 UT) capsule, , Disp: , Rfl: denosumab (Prolia) 60 MG/ML solution prefilled syringe, , Disp: , Rfl: famotidine (Pepcid) 20 MG tablet, every 12 (twelve) hours, Disp: , Rfl: fenofibrate (Triglide) 160 MG tablet, 1 (one) time each day at the same time, Disp: , Rfl: fenofibrate micronized (Lofibra) 134 MG capsule, Take 134 mg by mouth Daily, Disp: , Rfl: gabapentin (Neurontin) 100 MG capsule, every 8 (eight) hours, Disp: , Rfl: insulin glargine (Lantus) 100 UNIT/ML injection, Inject 8 Units under the skin at bedtime, Disp: , Rfl: magnesium oxide (Mag-Ox) 400 MG tablet, Take 400 mg by mouth Daily, Disp: , Rfl: Mathews 3 340 MG capsule delayed-release, 1 capsule every 12 (twelve) hours, Disp: , Rfl: Allergies Ferrous sulfate, Iron, Iron sucrose, and Sulfanilamide Medical Histories Past Medical History: Diagnosis Date Crohn's disease (HCC) Gout Hiatal hernia HTN (hypertension) Hyperlipidemia Osteoarthritis Surgical Histories Past Surgical History: Procedure Laterality Date HYSTERECTOMY KNEE SURGERY Bilateral SHOULDER SURGERY Left Hospitalizations Family History Family History Problem Relation Name Age of Onset Stroke Mother Other (htn) Mother Other (htn) Father Objective Foot Exam General Examination: alert, well hydrated, in no distress , awake, aware of surroundings. Dermatologic: HYPERKERATOSIS: rt sub lisa , mod left with redness and pain. NAIL [...] . 5Long, Thick, Crumbly, Deformed, Discolored, Brittle, Dystrophic.3mm Nail Pathology: Right Foot: 1 (great toe)Long, Thick, Crumbly, Deformed, Discolored, Brittle, Dystrophic 5mm. 2Long, Thick, Crumbly, Deformed, Discolored, Brittle, Dystrophic 4mm. 3Long, Thick, . 4Long, Thick, Crumbly, Deformed, Discolored, Brittle, Dystrophic. 5Long, Thick, Crumbly, Deformed, Discolored, Brittle, Dystrophic.3mm POP 1. Orthopedic: FOOT MORPHOLOGY:severe valgus ankle [...] digits. mild edema. 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 Nails: all thick and dystrophic nails debrided of all affected and loose material All of the nondystrophic nails were debrided Callus: all hyperkeratotic tissue debrided to all areas described above sharply with a #15 blade bilat documented in this [facility]09-17-2025 Evaluation note* Diagnosis Onset Date Resolution Status Admit Date Chronic kidney disease (CKD) acuteSeptember 2024 10:18amLumbar spondylosisacuteSeptember 2024 10:18amOpiate analgesic use agreement existsacuteSeptember 2024 10:18am OsteoporosisacuteSeptember 2024 10:18amPrimary hypertensionacuteSeptember 2024 10:18amType 2 diabetes mellitus with hyperglycemiaacuteSeptember 2024 10:18am [facility] Work Phone: 1(872) 633-951208-08-2025 History of Present illness Narrative* Kecia Temple MA - 05/27/2025 11:15 AM EDT Subjective Patient ID: Henrietta Gross is a 85 y.o. female who presents for Toenail Care. HPI Tender callous Lft foot more than rt sub lisa History of Present Illness Diabetic/Routine Nail Care: Locationnails on bilateral feet. Severity of symptomsmild. Onsetgradual. Statusno change. Contexthard to trim, hard to reach. NAILSthickened, discolored, pain. Relieved bydebridement, filing down nails, clipping nails. History of ulcers/wounds no. PCP Dr Alex Nix Date of Last visit 12-29-24 Aggravated byshoe gear, pressure. tender callus left more than right Blood sugar 120 ROS General: Chillsdenies. Feverdenies. Musculoskeletal: muscle weaknessdenies. Bone/joint symptomsdenies. Peripheral Vascular: Edemadenies. Hx of blood clots in legsdenies. Raynaud'sdenies. Rest pain denies. Ulceration of feetdenies. Varicose veinsdenies. Skin: Hyperpigmentationdenies. Nail changesdenies. Rashdenies. Skin lesion(s)denies. Neurologic: Gait abnormalitydenies. Tingling/Numbnessdenies. Current Medications Current Outpatient Medications: amLODIPine (Norvasc) 5 MG tablet, 1 (one) time each day at the same time, Disp: , Rfl: Calcium Carbonate-Vit D-Min (Calcium 600+D Plus Minerals) 600-400 MG-UNIT tablet, every 12 (twelve)hours, Disp: , Rfl: carvedilol (Coreg) 6.25 MG tablet, , Disp: , Rfl: cholecalciferol (KP Vitamin D) 25 MCG (1000 UT) capsule, , Disp: , Rfl: denosumab (Prolia) 60 MG/ML solution prefilled syringe, , Disp: , Rfl: famotidine (Pepcid) 20 MG tablet, every 12 (twelve) hours, Disp: , Rfl: fenofibrate (Triglide) 160 MG tablet, 1 (one) time each day at the same time, Disp: , Rfl: fenofibrate micronized (Lofibra) 134 MG capsule, Take 134 mg by mouth Daily, Disp: , Rfl: gabapentin (Neurontin) 100 MG capsule, every 8 (eight) hours, Disp: , Rfl: magnesium oxide (Mag-Ox) 400 MG tablet, Take 400 mg by mouth Daily, Disp: , Rfl: Mathews 3 340 MG capsule delayed-release, 1 capsule every 12 (twelve) hours, Disp: , Rfl: Allergies Ferrous sulfate, Iron, Iron sucrose, and Sulfanilamide Medical Histories Past Medical History: Diagnosis Date Crohn's disease (HCC) Gout Hiatal hernia HTN (hypertension) Hyperlipidemia Osteoarthritis Surgical Histories Past Surgical History: Procedure Laterality Date HYSTERECTOMY KNEE SURGERY Bilateral SHOULDER SURGERY Left Hospitalizations Family History Family History Problem Relation Name Age of Onset Stroke Mother Other (htn) Mother Other (htn) Father Objective Foot Exam General Examination: alert, well hydrated, in no distress , awake, aware of surroundings. Dermatologic: HYPERKERATOSIS: rt sub lisa , mod left with redness and pain. NAIL [...] . 5Long, Thick, Crumbly, Deformed, Discolored, Brittle, Dystrophic.3mm Nail Pathology: Right Foot: 1 (great toe)Long, Thick, Crumbly, Deformed, Discolored, Brittle, Dystrophic 5mm. 2Long, Thick, Crumbly, Deformed, Discolored, Brittle, Dystrophic 4mm. 3Long, Thick, . 4Long, Thick, Crumbly, Deformed, Discolored, Brittle, Dystrophic. 5Long, Thick, Crumbly, Deformed, Discolored, Brittle, Dystrophic.3mm POP 1. Orthopedic: FOOT MORPHOLOGY:severe valgus ankle [...] digits. mild edema. 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 Author Type: Nurse Practitioner Type: Progress Notes Filed: 05/16/2025 20:44 Note Text: PATIENT NAME: Henrietta Gross DATE: 05/16/2025 PRIMARY CARE PHYSICIAN: Dr. Alex Nix OTHER PHYSICIANS: Dr. Holden (pain management), Dr. Flores, Dr. Amin Portions of this encounter note have been copied from the note from 02/22/2025 and has been updated where appropriate, and reflect my current medical decision making from today. CC: This is an 85 year old female with chronic anemia, seen for scheduled follow-up. INTERIM HISTORY: Patient reports a recent decrease in hemoglobin levels, which had been stable at 12 g/dL a year ago, but recently dropped. Current hemoglobin is 11.5 g/dL. Patient is on insulin therapy, administered at night with morning glucose monitoring. Recent glucose readings were 101 mg/dL this morning and 112 mg/dL yesterday. Insulin dosage was recently increased from 6 to 8 units. She monitors her glucose levels daily and is advised to report if readings fall below 100 mg/dL for two consecutive days. Her hemoglobin A1c is monitored every three months. Patient is under the care of a molecular pathologist for CKD stage 3, with stable renal function. Recent labs show creatinine at 1.31 mg/dL, BUN at 29 mg/dL, and eGFR at 40 mL/min/1.73m?. She is seen annually by her molecular pathologist, with the frequency of visits previously every six months. Patient reports weight loss, currently weighing 147 lbs, and attributes this to loss of muscle mass. She experiences limitations in physical activity due to back and bone issues. She is taking a multivitamin that includes B12 and has reduced calcium supplementation as per her molecular pathologist's recommendation. MEDICATIONS: insulin glargine-yfgn (SEMGLEE) 100 unit/mL (3 mL) insulin pen INJECT 6 UNITS SUBCUTANEOUSLY EVERY EVENING FOR 30 DAYS magnesium oxide (MAG-OX) 400 mg (241.3 mg magnesium) tablet Take 1 tablet by mouth once daily. HYDROcodone-Acetaminophen (NORCO) 7.5-325 mg per tablet TAKE 1 TABLET BY MOUTH 3 TIMES A DAY NEEDED FOR PAIN calcium carbonate/vitamin D3 (CALCIUM 600 + D ORAL) Take by mouth. famotidine (PEPCID) 20 mg tablet Take by mouth twice daily. amLODIPine (NORVASC) 5 mg tablet fenofibrate (LOFIBRA) 134 mg capsule Take 134 mg by mouth daily at bedtime. [id number]-epa-fish oil 300-1,000 mg cpDR Take by mouth. [...] No weight loss, malaise or fevers. Increasing fatigue- improved. HEENT: Negative for frequent or significant headaches. [...] seizures or tremors. PHYSICAL EXAM: Vitals: BP 168/83 Pulse 82 Temp 36.7 ?C (98 ?F) (Temporal) Resp 16 Ht 152.4 cm (5') Wt 67 kg (147 lb 11.3 oz) SpO2 95% BMI 28.85 kg/m? ECOG 1 Exam limited to gross visualization where appropriate. Gen.: This is an age-appropriate patient in no acute distress. Head: Appears atraumatic with no visible lesions. Eyes: Pupils equally round and reactive to light, extraocular muscles are intact. Neck: Supple. Respiratory: Appears to be respiring comfortably. Neurologic: Nonfocal to gross visualization. Alert and oriented ?3. Psychiatric: No evidence of inappropriate anxiety or depression. Skin: Visible areas of skin without rash, lesions, wounds or petechiae. LABORATORY DATA: Hemoglobin (g/dL) Date Value 05/16/2025 11.5 12/13/2021 11.6 Hematocrit (%) Date Value 05/16/2025 35.0 12/13/2021 37.0 WBC (k/uL) Date Value 05/16/2025 5.58 12/13/2021 4.90 Platelet Count (k/uL) Date Value 05/16/2025 190 0 (more content not included)...[facility]07-28-2025 History of Present illness Narrative* Maranda Schmid APRN.COMPUTER NUMERIC CONTROL SETTER - 05/16/2025 2:53 PM EDT PATIENT NAME: Henrietta Gross DATE: 05/16/2025 PRIMARY CARE PHYSICIAN: Dr. Alex Nix OTHER PHYSICIANS: Dr. Holden (pain management), Dr. Flores, Dr. Amin Portions of this encounter note have been copied from the note from 02/22/2025 and has been updated where appropriate, and reflect my current medical decision making from today. CC: This is an 85 year old female with chronic anemia, seen for scheduled follow-up. INTERIM HISTORY: Patient reports a recent decrease in hemoglobin levels, which had been stable at 12 g/dL a year ago, but recently dropped. Current hemoglobin is 11.5 g/dL. Patient is on insulin therapy, administered at night with morning glucose monitoring. Recent glucose readings were 101 mg/dL this morning and 112 mg/dL yesterday. Insulin dosage was recently increased from 6 to 8 units. She monitors her glucose levels daily and is advised to report if readings fallbelow 100 mg/dL for two consecutive days. Her hemoglobin A1c is monitored every three months. Patient is under the care of a molecular pathologist for CKD stage 3, with stable renal function. Recent labs show creatinine at 1.31 mg/dL, BUN at 29 mg/dL, and eGFR at 40 mL/min/1.73m . She is seen annuallyby her molecular pathologist, with the frequency of visits previously every six months. Patient reports weight loss, currently weighing 147 lbs, and attributes this to loss of muscle mass. She experiences limitations in physical activity due to back and bone issues. She is taking a multivitamin that includes B12 and has reduced calcium supplementation as per her molecular pathologist's recommendation. MEDICATIONS: insulin glargine-yfgn (SEMGLEE) 100 unit/mL (3 mL) insulin pen INJECT 6 UNITS SUBCUTANEOUSLY EVERY EVENING FOR 30 DAYS magnesium oxide (MAG-OX) 400 mg (241.3 mg magnesium) tablet Take 1 tablet by mouth once daily. HYDROcodone-Acetaminophen (NORCO) 7.5-325 mg per tablet TAKE 1 TABLET BY MOUTH 3 TIMES A DAY NEEDED FOR PAIN calcium carbonate/vitamin D3 (CALCIUM 600 + D ORAL) Take by mouth. famotidine (PEPCID) 20 mg tablet Take by mouth twice daily. amLODIPine (NORVASC) 5 mg tablet fenofibrate (LOFIBRA) 134 mg capsule Take 134 mg by mouth daily at bedtime. dvrkx-6d-eki-epa-fish oil 300-1,000 mg cpDR Take by mouth. [...] No weight loss, malaise or fevers. Increasing fatigue- improved. HEENT: Negative for frequent or significant headaches. [...] seizures or tremors. PHYSICAL EXAM: Vitals: BP 168/83 Pulse 82 Temp 36.7 C (98 F) (Temporal) Resp 16 Ht 152.4 cm (5') Wt 67 kg (147 lb 11.3 oz) SpO2 95% BMI 28.85 kg/m ECOG 1 Exam limited to gross visualization where appropriate. Gen.: This is an age-appropriate patient in no acute distress. Head: Appears atraumatic with no visible lesions. Eyes: Pupils equally round and reactive to light, extraocular muscles are intact. Neck: Supple. Respiratory: Appears to be respiring comfortably. Neurologic: Nonfocal to gross visualization. Alert and oriented 3. Psychiatric: No evidence of inappropriate anxiety or depression. Skin: Visible areas of skin without rash, lesions, wounds or petechiae. LABORATORY DATA: Hemoglobin (g/dL) Date Value 05/16/2025 11.5 12/13/2021 11.6 Hematocrit (%) Date Value 05/16/2025 35.0 12/13/2021 37.0 WBC (k/uL) Date Value 05/16/2025 5.58 12/13/2021 4.90 Platelet Count (k/uL) Date Value 05/16/2025 190 12/13/2021 213 ASSESSMENT/PLAN: 1. 285.9 Anemia (primary diagnosis) Severe anemia initially discovered February 2007 (hemoglobin 6.7). Bone marrow biopsy April 2007 nondiagnostic. Etiology multifactorial - in part due to iron deficiency from GI bleeding, in part due to CRI. Shortly after initial presentation the patient received multiple blood transfusions, iron infusions, and EPO injections with resolution of her anemia. She developed recurrent anemia January 2019 due to an upper GI bleed from peptic ulcer disease. With appropriate management her anemia initially returned to baseline. However, since 2020 her anemia worsened as a result of chronic renal insufficiencyand the patient became symptomatic with severe fatigue. For the treatment of renal failure induced anemia the patient was started on Aranesp 11/29/2021, with plans to give as needed to maintain hemoglobin 10-11. Since starting Aranesp she has clinically improved and her CBC has improved significantly. She last received Aranesp 02/06/2023 Hemoglobin in February 2025 was <11. To resume Aranesp hemoglobin needed to be <10. Hemoglobin today has improved. We will plan to see her back in 6 months for follow-up and labs. 2. 280.9 History of iron deficiency The patient has a long history of intermittent iron deficiency secondary to GI bleeding. Previous GI evaluation revealed evidence of gastric bleeding from a hiatal hernia. January 2019 she was found tohave peptic ulcer disease with bleeding. For the treatment of iron deficiency she has received ironsupplements in the past. Current iron stores are [...] months since September 2016, currently given at [facility]. Continue management per PCP. 6. Type 2 diabetes mellitus without complication, without long-term current use of insulin (HCC) - ICD9: 250.00, ICD10: E11.9 Stable off therapy. Continue management per PCP. She is now on insulin per PCP. Maranda Schmid APRN.KATIE I spent a total of 20 minutes on the date of the service which included preparing to see the patient, [id number] patient care, completing clinical documentation, obtaining and/or reviewing separately obtained history, performing a medically appropriate examination, counseling and educating the pat ient/family/caregiver, ordering medications, tests, or procedures, independently interpreting results (not separately reported), and communicating results to the patient/family/caregiver. CC: Dr. Amin [facility]* Diagnosis Iron deficiency- Primary Iron deficiency anemia, unspecified Chronic renal impairment, stage 3 (moderate), unspecified whether stage 3a or 3b CKD (HCC) Type 2 diabetes mellitus without complication, without long-term current use of insulin (HCC) Crohn's disease without complication, unspecified gastrointestinal tract location (HCC) Type 2 diabetes mellitus with hyperglycemia, with long-term current use of insulin (HCC) Anemia, unspecified type documented in this encounter [facility]07-21-2025 Telephone encounter Note* Telephone Encounter - Pool Escobedo RN - 05/09/2025 2:29 PM EDT Labs pended for RTC 05/16/25 with Pool Escobedo RN [facility]07-21-2025 Miscellaneous Notes* Telephone Encounter - Pool Escobedo RN - 05/09/2025 2:29 PM EDT Labs pended for RTC 05/16/25 with Pool Escobedo RN documented in [facility]* Diagnosis Iron deficiency- Primary Iron deficiency anemia, unspecified Chronic renal impairment, stage 3 (moderate), unspecified whether stage 3a or 3b CKD (HCC) documented in this encounter [facility]06-12-[facility] Telephone encounter Note* Telephone Encounter - Jose Miranda - 03/31/2025 7:18 AM EDT Patient coming in for lab only 04/06/25 with no orders. Please review and place needed lab. Thank you, Geri Miranda MLT [facility]06-12-2025 Miscellaneous Notes* Telephone Encounter - Jose Miranda - 03/31/2025 7:18 AM EDT Patient coming in for lab only 04/06/25 with no orders. Please review and place needed lab. Thank you, Geri Miranda MLT documented in [facility] History of Present illness Narrative* Daxa Caldwell LPN - 03/25/2025 11:00 AM EDT Subjective Patient ID: Henrietta Gross is a 85 y.o. female who presents for Follow-up (Nailcare). HPI Tender callous Lft foot more than rt sub lisa History of Present Illness Diabetic/Routine Nail Care: Locationnails on bilateral feet. Severity of symptomsmild. Onsetgradual. Statusno change. Contexthard to trim, hard to reach. NAILSthickened, discolored, pain. Relieved bydebridement, filing down nails, clipping nails. History of ulcers/wounds no. PCP Dr Alex Nix Date of Last visit 12-29-24 Aggravated byshoe gear, pressure. tender callus left more than right Blood sugar 161 ROS General: Chillsdenies. Feverdenies. Musculoskeletal: muscle weaknessdenies. Bone/joint symptomsdenies. Peripheral Vascular: Edemadenies. Hx of blood clots in legsdenies. Raynaud'sdenies. Rest pain denies. Ulceration of feetdenies. Varicose veinsdenies. Skin: Hyperpigmentationdenies. Nail changesdenies. Rashdenies. Skin lesion(s)denies. Neurologic: Gait abnormalitydenies. Tingling/Numbnessdenies. Current Medications Current Outpatient Medications: amLODIPine (Norvasc) 5 MG tablet, 1 (one) time each day at the same time, Disp: , Rfl: Calcium Carbonate-Vit D-Min (Calcium 600+D Plus Minerals) 600-400 MG-UNIT tablet, every 12 (twelve)hours, Disp: , Rfl: carvedilol (Coreg) 6.25 MG tablet, , Disp: , Rfl: cholecalciferol (KP Vitamin D) 25 MCG (1000 UT) capsule, , Disp: , Rfl: denosumab (Prolia) 60 MG/ML solution prefilled syringe, , Disp: , Rfl: famotidine (Pepcid) 20 MG tablet, every 12 (twelve) hours, Disp: , Rfl: fenofibrate (Triglide) 160 MG tablet, 1 (one) time each day at the same time, Disp: , Rfl: fenofibrate micronized (Lofibra) 134 MG capsule, Take 134 mg by mouth Daily, Disp: , Rfl: gabapentin (Neurontin) 100 MG capsule, every 8 (eight) hours, Disp: , Rfl: magnesium oxide (Mag-Ox) 400 MG tablet, Take 400 mg by mouth Daily, Disp: , Rfl: Mathews 3 340 MG capsule delayed-release, 1 capsule every 12 (twelve) hours, Disp: , Rfl: Allergies Ferrous sulfate, Iron, [...] (htn) Father Objective Foot Exam General Examination: alert, well hydrated, in no distress , awake, aware of surroundings. Dermatologic: HYPERKERATOSIS: rt sub lisa , mod left with redness and pain. NAIL [...] . 5Long, Thick, Crumbly, Deformed, Discolored, Brittle, Dystrophic.3mm Nail Pathology: Right Foot: 1 (great toe)Long, Thick, Crumbly, Deformed, Discolored, Brittle, Dystrophic 5mm. 2Long, Thick, Crumbly, Deformed, Discolored, Brittle, Dystrophic 4mm. 3Long, Thick, . 4Long, Thick, Crumbly, Deformed, Discolored, Brittle, Dystrophic. 5Long, Thick, Crumbly, Deformed, Discolored, Brittle, Dystrophic.3mm POP 1. Orthopedic: FOOT MORPHOLOGY:severe valgus ankle [...] digits. mild edema. 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 Patient has been notified of all revised appointments. Thanks! Ramirez Rincon [facility]05-09-2025 Miscellaneous Notes* Telephone Encounter - Ramirez Rincon - 02/25/2025 10:23 AM EDT Call placed to patient - appointments cancelled and rescheduled to lab, 04/06 and lab and RV on 05/16. Patient has been notified of all revised appointments. Thanks! Ramirez Rincon * Telephone Encounter - Pool Escobedo RN - 02/24/2025 3:45 PM EDT Pt aware and agreeable to plan of care. She denies any questions, need or concerns at this time. PSS: Please call pt for scheduling needs, per Maranda below Pool Escobedo, RN * Telephone Encounter - Maranda Schmid APRN.COMPUTER NUMERIC CONTROL SETTER - 02/24/2025 3:39 PM EDT Please notify patient that her iron studies are normal and there is no additional need for IV iron at this time. In order to reinitiate the Aranesp her hemoglobin needs to be </= 9.9. Therefore, at this time her hemoglobin is 10.9 so we will not be able to give Aranesp unless hemoglobin continues to drop. I am comfortable monitoring this for now. Please cancel next week's Aranesp injection and3 week follow-up. At this time, I would suggest we repeat labs in 6 weeks and schedule her for a follow-up in 12 weeks. Thank you, Maranda Schmid APRN.KATIE * Telephone Encounter - Pool Escobedo RN - 02/24/2025 8:03 AM EDT Please review labs and verify, no need for iron? Pool Escobedo RN * Telephone Encounter - Liliana Lovell - 02/22/2025 10:08 AM EDT Images from the original note were not included. documented in this encounterL[facility] Telephone encounter Note * Telephone Encounter - Pool Escobedo RN - 02/24/2025 3:45 PM EDT Pt aware and agreeable to plan of care. She denies any questions, need or concerns at this time. PSS: Please call pt for scheduling needs, per Maranda below Pool Escobedo RN [facility]05-08-2025 Telephone encounter Note* Telephone Encounter - Maranda Schmid APRN.CNP - 02/24/2025 3:39 PM EDT Please notify patient that her iron studies are normal and there is no additional need for IV iron at this time. In order to reinitiate the Aranesp her hemoglobin needs to be Thank you, Maranda Schmid APRN.COMPUTER NUMERIC CONTROL SETTER [facility] Work Phone: [phone] Telephone encounter Note* Telephone Encounter - Pool Escobedo RN - 02/24/2025 8:03 AM EDT Please review labs and verify, no need for iron? Pool Escobedo RN [facility]05-06-2025 Telephone encounter Note* Telephone Encounter - Liliana Lovell - 02/22/2025 10:08 AM EDT Images from the original note were not included. [facility]05-05-2025 NoteHNO ID: [id number] Author: MARANDA SCHMID APRN.KATIE Service: ? Author Type: Nurse Practitioner Type: Progress Notes Filed: 02/22/2025 20:12 Note Text: PATIENT NAME: Henrietta Gross DATE: 02/22/2025 PRIMARY CARE PHYSICIAN: Dr. Alex Nix OTHER PHYSICIANS: Dr. Holden (pain management), Dr. Flores, Dr. Amin Portions of this encounter note have been copied from the note from 09/02/2024 and has been updated where appropriate, and reflect my current medical decision making from today. CC: This is an 85 year old female with chronic anemia, seen for scheduled follow-up. INTERIM HISTORY: Henrietta Gross returns for follow-up. She has been battling a cough. She saw her PCP and was prescribed an antibiotic. Over the weekend she had a coughing spell and has had abdominal soreness since. She denies any obvious blood loss. No black tarry stools. No abnormal bruising. She has had increased fatigue. She denies fevers, chills, night sweats and signs/symptoms of infection. MEDICATIONS: magnesium oxide (MAG-OX) 400 mg (241.3 mg magnesium) tablet Take 1 tablet by mouth once daily. HYDROcodone-Acetaminophen (NORCO) 7.5-325 mg per tablet TAKE 1 TABLET BY MOUTH 3 TIMES A DAY NEEDED FOR PAIN calcium carbonate/vitamin D3 (CALCIUM 600 + D ORAL) Take by mouth. famotidine (PEPCID) 20 mg tablet Take by mouth twice daily. amLODIPine (NORVASC) 5 mg tablet fenofibrate (LOFIBRA) 134 mg capsule Take 134 mg by mouth daily at bedtime. iuhiy-1v-yze-epa-fish oil 300-1,000 mg cpDR Take by mouth. [...] seizures or tremors. PHYSICAL EXAM: Vitals: BP 153/68 Pulse 74 Temp 36.4 ?C (97.5 ?F) (Temporal) Resp 16 Wt 68.3 kg (150 lb 9.2 oz) SpO2 95% BMI 29.41 kg/m? ECOG 1 Exam limited to gross [...] petechiae. LABORATORY DATA: Hemoglobin (g/dL) Date Value 02/22/2025 10.9 12/13/2021 11.6 Hematocrit (%) Date Value 02/22/2025 33.2 12/13/2021 37.0 WBC (k/uL) Date Value 02/22/2025 5.14 12/13/2021 4.90 Platelet Count (k/uL) Date Value 02/22/2025 266 12/13/2021 213 ASSESSMENT/PLAN: 1. 285.9 Anemia (primary diagnosis) Severe anemia initially discovered February 2007 (hemoglobin 6.7). Bone marrow biopsy April 2007 nondiagnostic. Etiology multifactorial - in part due to iron deficiency from GI bleeding, in part due to CRI. Shortly after initial presentation the patient received multiple blood transfusions, iron infusions, and EPO injections with resolution of her anemia. She developed recurrent anemia January 2019 due to an upper GI bleed from peptic ulcer disease. With appropriate management her anemia initially returned to baseline. However, since 2020 her anemia worsened as a result of chronic renal insufficiency and the patient became symptomatic with severe fatigue. For the treatment of renal failure induced anemia the patient was started on Aranesp 11/29/2021, with plans to give as needed to maintain hemogl (more content not included)...[facility]05-05-2025 History of Present illness Narrative* Maranda Schmid APRN.COMPUTER NUMERIC CONTROL SETTER - 02/21/2025 6:50 PM EDT PATIENT NAME: Henrietta Gross DATE: 02/22/2025 PRIMARY CARE PHYSICIAN: Dr. Alex Nix OTHER PHYSICIANS: Dr. Holden (pain management), Dr. Flores, Dr. Amin Portions of this encounter note have been copied from the note from 09/02/2024 and has been updatedwhere appropriate, and reflect my current medical decision making from today. CC: This is an 85 year old female with chronic anemia, seen for scheduled follow-up. INTERIM HISTORY: Henrietta Gross returns for follow-up. She has been battling a cough. She saw her PCP and was prescribed an antibiotic. Over the weekend she had a coughing spell and has had abdominal soreness since. She denies any obvious blood loss. No black tarry stools. No abnormal bruising. She has had increased fatigue. She denies fevers, chills, night sweats and signs/symptoms of infection. MEDICATIONS: magnesium oxide (MAG-OX) 400 mg (241.3 mg magnesium) tablet Take 1 tablet by mouth once daily. HYDROcodone-Acetaminophen (NORCO) 7.5-325 mg per tablet TAKE 1 TABLET BY MOUTH 3 TIMES A DAY NEEDED FOR PAIN calcium carbonate/vitamin D3 (CALCIUM 600 + D ORAL) Take by mouth. famotidine (PEPCID) 20 mg tablet Take by mouth twice daily. amLODIPine (NORVASC) 5 mg tablet fenofibrate (LOFIBRA) 134 mg capsule Take 134 mg by mouth daily at bedtime. wdbmx-4s-fqu-epa-fish oil 300-1,000 mg cpDR Take by mouth. [...] seizures or tremors. PHYSICAL EXAM: Vitals: BP 153/68 Pulse 74 Temp 36.4 C (97.5 F) (Temporal) Resp 16 Wt 68.3 kg (150 lb 9.2 oz) SpO2 95% BMI 29.41 kg/m ECOG 1 Exam limited to gross [...] petechiae. LABORATORY DATA: Hemoglobin (g/dL) Date Value 02/22/2025 10.9 12/13/2021 11.6 Hematocrit (%) Date Value 02/22/2025 33.2 12/13/2021 37.0 WBC (k/uL) Date Value 02/22/2025 5.14 12/13/2021 4.90 Platelet Count (k/uL) Date Value 02/22/2025 266 12/13/2021 213 ASSESSMENT/PLAN: 1. 285.9 Anemia (primary diagnosis) Severe anemia initially discovered February 2007 (hemoglobin 6.7). Bone marrow biopsy April 2007 nondiagnostic. Etiology multifactorial - in part due to iron deficiency from GI bleeding, in part due to CRI. Shortly after initial presentation the patient received multiple blood transfusions, iron infusions, and EPO injections with resolution of her anemia. She developed recurrent anemia January 2019 due to an upper GI bleed from peptic ulcer disease. With appropriate management her anemia initially returned to baseline. However, since 2020 her anemia worsened as a result of chronic renal insufficiencyand the patient became symptomatic with severe fatigue. For the treatment of renal failure induced anemia the patient was started on Aranesp 11/29/2021, with plans to give as needed to maintain hemoglobin 10-11. Since starting Aranesp she has clinically improved and her CBC has improved significantly. She last received Aranesp 02/06/2023 Her hemoglobin today is <11. Iron levels from today are pending. Will give additional IV iron ifdeficient. Will obtain insurance authorization to resume Aranesp 200 mcg. If authorized, she will receive an injection in 1 week. We will plan to see her back in 3 weeks for follow-up and labs. 2. 280.9 History of iron deficiency The patient has a long history of intermittent iron deficiency secondary to GI bleeding. Previous GI evaluation revealed evidence of gastric bleeding from a hiatal hernia. January 2019 she was found tohave peptic ulcer disease with bleeding. For the treatment of iron deficiency she has received ironsupplements in the past. Current iron stores are [...] months since September 2016, currently given at [facility]. Continue management per PCP. 6. Type 2 diabetes mellitus without complication, without long-term current use of insulin ([facility]) - ICD9: 250.00, ICD10: E11.9 Stable off therapy. Continue management per PCP. Per patient request we will check her hemoglobin A1c today. Maranda Schmid APRN.CNP I spent a total of 30 minutes on the date of the service which included preparing to see the patient, [id number] patient care, completing clinical documentation, obtaining and/or reviewing separately obtained history, performing a medically appropriate examination, counseling and educating the pat ient/family/caregiver, ordering medications, tests, or procedures, independently interpreting results (not separately reported), and communicating results to the patient/family/caregiver. CC: Dr. Amin documented in this encounterCleveland [id number] History of Present illness Narrative* Belinda Marks DO - 2025 2:00 PM EDT Images from the original note were not included. Assessment/Plan Diagnoses and all orders for this visit: Basal cell carcinoma (BCC) of right lower eyelid Malignant neoplasm of skin of eyelid, including canthus - status post (s/p) excisional biopsy. Pathology reviewed with pt. This was discovered to be basal cell carcinoma (BCC) however the margins were clear of cancer. documented in this encounterParkland Health [id number] History of Present illness Narrative* Belinda Marks DO - 01/28/2025 11:45 AM EDT Images from the original note were not included. Assessment/Plan Diagnoses and all orders for this visit: Malignant neoplasm of skin of eyelid, including canthus Basal cell carcinoma (BCC) of right lower eyelid Pre-op Dx.: basal cell carcinoma (BCC) right lower eyelid (RLL) Post-op Dx.: Same Procedure: Excisional Biopsy right lower eyelid (RLL) Anesthesia: Local EBL: <.2cc Complications: None Procedure: The patient was brought to the surgical suite. After pt identification, R/B/A/E provided for procedure above and consent was obtained. Site identification was performed and measurements were taken for the size of the lesion in concern. The borders of the lesion were identified and approximately 2mmbeyond matias were made for future excision sizes. Local anesthesia was performed with 2% lido w/ epi. .6ccs was placed. The eye was prepped in a sterile ophthalmic fashion. A #15 blade was used to incise the dermis at the location of the markings. The lesion was then undermined with blunt johanny scissors. Hemostasis was achieved with cautery. The wound was closed with 6-0 vicryl x 3 horizontal mattress sutures. Tdex everett placed over the wound and the pt sent to the waiting room in satisfactory condition. Pathology was sent. documented in this encounterParkland Health [id number] History of Present illness Narrative* Belinda Marks DO - 01/21/2025 11:00 AM EDT Images from the original note were not included. Assessment/Plan Diagnoses and all orders for this visit: Basal cell carcinoma (BCC) of right lower eyelid - Ms. Gross has what appears to be a basal cell carcinoma (BCC) on the right lower eyelid (RLL) lateral. Discussed the R/B/A/E for its removal. documented in this encounterParkland Health [id number] History of Present illness Narrative* Chantal Ward DPM - 01/20/2025 3:00 PM EDT Subjective Patient ID: Henrietta Gross is a 84 y.o. female who presents for Follow-up (Nailcare). HPI Tender callous Lft foot more than rt sub lisa History of Present Illness Diabetic/Routine Nail Care: Locationnails on bilateral feet. Severity of symptomsmild. Onsetgradual. Statusno change. Contexthard to trim, hard to reach. NAILSthickened, discolored, pain. Relieved bydebridement, filing down nails, clipping nails. History of ulcers/wounds no. PCP Dr Alex Nix Date of Last visit 12-29-24 Aggravated byshoe gear, pressure. tender callus left more than right Blood sugar 161 ROS General: Chillsdenies. Feverdenies. Musculoskeletal: muscle weaknessdenies. Bone/joint symptomsdenies. Peripheral Vascular: Edemadenies. Hx of blood clots in legsdenies. Raynaud'sdenies. Rest pain denies. Ulceration of feetdenies. Varicose veinsdenies. Skin: Hyperpigmentationdenies. Nail changesdenies. Rashdenies. Skin lesion(s)denies. Neurologic: Gait abnormalitydenies. Tingling/Numbnessdenies. Current Medications Current Outpatient Medications: amLODIPine (Norvasc) 5 MG tablet, 1 (one) time each day at the same time., Disp: , Rfl: Calcium Carbonate-Vit D-Min (Calcium 600+D Plus Minerals) 600-400 MG-UNIT tablet, every 12 (twelve)hours., Disp: , Rfl: carvedilol (Coreg) 6.25 MG tablet, take 1 tablet (6.25MG) by oral route 2 times every day with foodOral, Disp: , Rfl: cholecalciferol ( Vitamin D) 25 MCG (1000 UT) capsule, take 1 by Oral route every day Oral, Disp:, Rfl: denosumab (Prolia) 60 MG/ML solution prefilled syringe, Subcutaneous, Disp: , Rfl: famotidine (Pepcid) 20 MG tablet, every 12 (twelve) hours., Disp: , Rfl: fenofibrate (Triglide) 160 MG tablet, 1 (one) time each day at the same time., Disp: , Rfl: gabapentin (Neurontin) 100 MG capsule, every 8 (eight) hours., Disp: , Rfl: magnesium oxide (Mag-Ox) 400 MG tablet, Take 400 mg by mouth in the morning., Disp: , Rfl: Mathews 3 340 MG capsule delayed-release, 1 capsule [...] (htn) Father Objective Foot Exam General Examination: alert, well hydrated, in no distress , awake, aware of surroundings. Dermatologic: HYPERKERATOSIS: rt sub lisa , mod left with redness and pain. NAIL [...] . 5Long, Thick, Crumbly, Deformed, Discolored, Brittle, Dystrophic.3mm Nail Pathology: Right Foot: 1 (great toe)Long, Thick, Crumbly, Deformed, Discolored, Brittle, Dystrophic 5mm. 2Long, Thick, Crumbly, Deformed, Discolored, Brittle, Dystrophic 4mm. 3Long, Thick, . 4Long, Thick, Crumbly, Deformed, Discolored, Brittle, Dystrophic. 5Long, Thick, Crumbly, Deformed, Discolored, Brittle, Dystrophic.3mm POP 1. Orthopedic: FOOT MORPHOLOGY:severe valgus ankle [...] digits. mild edema. 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 Nails: all thick and dystrophic nails debrided of all affected and loose material All of the nondystrophic nails were debrided Callus: all hyperkeratotic tissue debrided to all areas described above sharply with a #15 blade bilat documented in this [facility]03-12-2025 Evaluation note* Diagnosis Onset Date Resolution Status Admit Date Acute dysfunction of left eustachian tub e acuteMarch 2024 10:25amBenign paroxysmal positional vertigo of right ear acuteMarch 2024 10:25amChronic kidney disease (CKD)acuteMarch 2024 10:25amLumbar spondylosisacuteMarch 2024 10:25amOpiate analgesic use agreement existsacuteMarch 2024 10:25amOsteoporosisacuteMarch 2024 10:25amPrimary hypertensionacuteMarch 2024 10:25amType 2 diabetes mellitus with hyperglycemiaacuteMarch 2024 10:25am [facility] Work Phone: 1(121) 949-921201-30-2025 History of Present illness Narrative* Chantal Ward, JÚNIOR - 11/18/2024 11:30 AM EST Subjective Patient ID: Henrietta Gross is a 84 y.o. female who presents for Follow-up (Nailcare). HPI Tender callous Lft foot more than rt sub lisa History of Present Illness Diabetic/Routine Nail Care: Locationnails on bilateral feet. Severity of symptomsmild. Onsetgradual. Statusno change. Contexthard to trim, hard to reach. NAILSthickened, discolored, pain. Relieved bydebridement, filing down nails, clipping nails. History of ulcers/wounds no. PCP Dr Alex Nix Date of Last visit 06-04-24 Aggravated byshoe gear, pressure. tender callus left more than right Blood sugar 160 ROS General: Chillsdenies. Feverdenies. Musculoskeletal: muscle weaknessdenies. Bone/joint symptomsdenies. Peripheral Vascular: Edemadenies. Hx of blood clots in legsdenies. Raynaud'sdenies. Rest pain denies. Ulceration of feetdenies. Varicose veinsdenies. Skin: Hyperpigmentationdenies. Nail changesdenies. Rashdenies. Skin lesion(s)denies. Neurologic: Gait abnormalitydenies. Tingling/Numbnessdenies. Current Medications Current Outpatient Medications: amLODIPine (Norvasc) 5 MG tablet, 1 (one) time each day at the same time., Disp: , Rfl: Calcium Carbonate-Vit D-Min (Calcium 600+D Plus Minerals) 600-400 MG-UNIT tablet, every 12 (twelve)hours., Disp: , Rfl: carvedilol (Coreg) 6.25 MG tablet, take 1 tablet (6.25MG) by oral route 2 times every day with foodOral, Disp: , Rfl: cholecalciferol (KP Vitamin D) 25 MCG (1000 UT) capsule, take 1 by Oral route every day Oral, Disp:, Rfl: denosumab (Prolia) 60 MG/ML solution prefilled syringe, Subcutaneous, Disp: , Rfl: famotidine (Pepcid) 20 MG tablet, every 12 (twelve) hours., Disp: , Rfl: fenofibrate (Triglide) 160 MG tablet, 1 (one) time each day at the same time., Disp: , Rfl: gabapentin (Neurontin) 100 MG capsule, every 8 (eight) hours., Disp: , Rfl: magnesium oxide (Mag-Ox) 400 MG tablet, Take 400 mg by mouth in the morning., Disp: , Rfl: Mathews 3 340 MG capsule delayed-release, 1 capsule [...] (htn) Father Objective Foot Exam General Examination: alert, well hydrated, in no distress , awake, aware of surroundings. Dermatologic: HYPERKERATOSIS: rt sub lisa , mod left with redness and pain. NAIL [...] . 5Long, Thick, Crumbly, Deformed, Discolored, Brittle, Dystrophic.3mm Nail Pathology: Right Foot: 1 (great toe)Long, Thick, Crumbly, Deformed, Discolored, Brittle, Dystrophic 5mm. 2Long, Thick, Crumbly, Deformed, Discolored, Brittle, Dystrophic 4mm. 3Long, Thick, . 4Long, Thick, Crumbly, Deformed, Discolored, Brittle, Dystrophic. 5Long, Thick, Crumbly, Deformed, Discolored, Brittle, Dystrophic.3mm POP 1. Orthopedic: FOOT MORPHOLOGY:severe valgus ankle [...] digits. mild edema. 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 female who presents for Follow-up (Nailcare). HPI Tender callous Lft foot more than rt sub lisa History of Present Illness Diabetic/Routine Nail Care: Locationnails on bilateral feet. Severity of symptomsmild. Onsetgradual. Statusno change. Contexthard to trim, hard to reach. NAILSthickened, discolored, pain. Relieved bydebridement, filing down nails, clipping nails. History of ulcers/wounds no. PCP Dr Alex Nix Date of Last visit 06-04-24 Aggravated byshoe gear, pressure. tender callus left more than right Last BS 152 ROS General: Chillsdenies. Feverdenies. Musculoskeletal: muscle weaknessdenies. Bone/joint symptomsdenies. Peripheral Vascular: Edemadenies. Hx of blood clots in legsdenies. Raynaud'sdenies. Rest pain denies. Ulceration of feetdenies. Varicose veinsdenies. Skin: Hyperpigmentationdenies. Nail changesdenies. Rashdenies. Skin lesion(s)denies. Neurologic: Gait abnormalitydenies. Tingling/Numbnessdenies. Current Medications Current Outpatient Medications: amLODIPine (Norvasc) 5 MG tablet, 1 (one) time each day at the same time., Disp: , Rfl: Calcium Carbonate-Vit D-Min (Calcium 600+D Plus Minerals) 600-400 MG-UNIT tablet, every 12 (twelve)hours., Disp: , Rfl: carvedilol (Coreg) 6.25 MG tablet, take 1 tablet (6.25MG) by oral route 2 times every day with foodOral, Disp: , Rfl: cholecalciferol ( Vitamin D) 25 MCG (1000 UT) capsule, take 1 by Oral route every day Oral, Disp:, Rfl: denosumab (Prolia) 60 MG/ML solution prefilled syringe, Subcutaneous, Disp: , Rfl: famotidine (Pepcid) 20 MG tablet, every 12 (twelve) hours., Disp: , Rfl: fenofibrate (Triglide) 160 MG tablet, 1 (one) time each day at the same time., Disp: , Rfl: gabapentin (Neurontin) 100 MG capsule, every 8 (eight) hours., Disp: , Rfl: magnesium oxide (Mag-Ox) 400 MG tablet, Take 400 mg by mouth in the morning., Disp: , Rfl: Mathews 3 340 MG capsule delayed-release, 1 capsule [...] (htn) Father Objective Foot Exam General Examination: alert, well hydrated, in no distress , awake, aware of surroundings. Dermatologic: HYPERKERATOSIS: rt sub lisa , mod left with redness and pain. NAIL [...] . 5Long, Thick, Crumbly, Deformed, Discolored, Brittle, Dystrophic.3mm Nail Pathology: Right Foot: 1 (great toe)Long, Thick, Crumbly, Deformed, Discolored, Brittle, Dystrophic 5mm. 2Long, Thick, Crumbly, Deformed, Discolored, Brittle, Dystrophic 4mm. 3Long, Thick, . 4Long, Thick, Crumbly, Deformed, Discolored, Brittle, Dystrophic. 5Long, Thick, Crumbly, Deformed, Discolored, Brittle, Dystrophic.3mm POP 1. Orthopedic: FOOT MORPHOLOGY:severe valgus ankle [...] digits. mild edema. 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 Author Type: Nurse Practitioner Type: Progress Notes Filed: 09/02/2024 16:46 Note Text: PATIENT NAME: Henrietta Gross DATE: 09/02/2024 PRIMARY CARE PHYSICIAN: Dr. Alex Nix OTHER PHYSICIANS: Dr. Holden (pain management), Dr. Flores, Dr. Amin Portions of this encounter note have been copied from the note from 02/26/2024 and has been updated where appropriate, and reflect my current medical decision making from today. CC: This is an 84 year old female with chronic anemia, seen for scheduled follow-up. INTERIM HISTORY: Henrietta Gross returns for scheduled follow-up. Since her last visit there has been no significant medical changes. She states that she is feeling good. She denies any bleeding or abnormal bruising. No fevers, chills, night sweats or signs/symptoms of infection. She denies cough, shortness of breath and other pulmonary complaints. MEDICATIONS: magnesium oxide (MAG-OX) 400 mg (241.3 mg magnesium) tablet Take 1 tablet by mouth once daily. HYDROcodone-Acetaminophen (NORCO) 7.5-325 mg per tablet TAKE 1 TABLET BY MOUTH 3 TIMES A DAY NEEDED FOR PAIN calcium carbonate/vitamin D3 (CALCIUM 600 + D ORAL) Take by mouth. famotidine (PEPCID) 20 mg tablet Take by mouth twice daily. amLODIPine (NORVASC) 5 mg tablet fenofibrate (LOFIBRA) 134 mg capsule Take 134 mg by mouth daily at bedtime. ylxyh-4a-rio-epa-fish oil 300-1,000 mg cpDR Take by mouth. [...] seizures or tremors. PHYSICAL EXAM: Vitals: BP 130/88 Pulse 86 Temp 36.4 ?C (97.6 ?F) (Temporal) Resp 18 Wt 69.5 kg (153 lb 3.5 oz) SpO2 95% BMI 29.92 kg/m? ECOG 1 Exam limited to gross [...] petechiae. LABORATORY DATA: Hemoglobin (g/dL) Date Value 09/02/2024 11.5 12/13/2021 11.6 Hematocrit (%) Date Value 09/02/2024 34.3 12/13/2021 37.0 WBC (k/uL) Date Value 09/02/2024 5.89 12/13/2021 4.90 Platelet Count (k/uL) Date Value 09/02/2024 216 12/13/2021 213 ASSESSMENT/PLAN: 1. 285.9 Anemia (primary diagnosis) Severe anemia initially discovered February 2007 (hemoglobin 6.7). Bone marrow biopsy April 2007 nondiagnostic. Etiology multifactorial - in part due to iron deficiency from GI bleeding, in part due to CRI. Shortly after initial presentation the patient received multiple blood transfusions, iron infusions, and EPO injections with resolution of her anemia. She developed recurrent anemia January 2019 due to an upper GI bleed from peptic ulcer disease. With appropriate management her anemia initially returned to baseline. However, since 2020 her anemia worsened as a result of chronic renal insufficiency and the patient became symptomatic with severe fatigue. For the treatment of renal failure induced anemia the patient was started on Aranesp 11/29/2021, with plans to give as needed to maintain hemoglobin 10-11. Since starting Aranesp she has clinica (more content not included)...[facility]11-14-2024 History of Present illness Narrative* Maranda Schmid APRN.COMPUTER NUMERIC CONTROL SETTER - 09/02/2024 2:54 PM EST PATIENT NAME: Henrietta Gross DATE: 09/02/2024 PRIMARY CARE PHYSICIAN: Dr. Alex Nix OTHER PHYSICIANS: Dr. Holden (pain management), Dr. Flores, Dr. Amin Portions of this encounter note have been copied from the note from 02/26/2024 and has been updated where appropriate, and reflect my current medical decision making from today. CC: This is an 84 year old female with chronic anemia, seen for scheduled follow-up. INTERIM HISTORY: Henrietta Gross returns for scheduled follow-up. Since her last visit there has beenno significant medical changes. She states that she is feeling good. She denies any bleeding or abnormal bruising. No fevers, chills, night sweats or signs/symptoms of infection. She denies cough, shortness of breath and other pulmonary complaints. MEDICATIONS: magnesium oxide (MAG-OX) 400 mg (241.3 mg magnesium) tablet Take 1 tablet by mouth once daily. HYDROcodone-Acetaminophen (NORCO) 7.5-325 mg per tablet TAKE 1 TABLET BY MOUTH 3 TIMES A DAY NEEDED FOR PAIN calcium carbonate/vitamin D3 (CALCIUM 600 + D ORAL) Take by mouth. famotidine (PEPCID) 20 mg tablet Take by mouth twice daily. amLODIPine (NORVASC) 5 mg tablet fenofibrate (LOFIBRA) 134 mg capsule Take 134 mg by mouth daily at bedtime. ifauw-8c-gdd-epa-fish oil 300-1,000 mg cpDR Take by mouth. [...] seizures or tremors. PHYSICAL EXAM: Vitals: BP 130/88 Pulse 86 Temp 36.4 C (97.6 F) (Temporal) Resp 18 Wt 69.5 kg (153 lb 3.5 oz) SpO2 95% BMI 29.92 kg/m ECOG 1 Exam limited to gross [...] petechiae. LABORATORY DATA: Hemoglobin (g/dL) Date Value 09/02/2024 11.5 12/13/2021 11.6 Hematocrit (%) Date Value 09/02/2024 34.3 12/13/2021 37.0 WBC (k/uL) Date Value 09/02/2024 5.89 12/13/2021 4.90 Platelet Count (k/uL) Date Value 09/02/2024 216 12/13/2021 213 ASSESSMENT/PLAN: 1. 285.9 Anemia (primary diagnosis) Severe anemia initially discovered February 2007 (hemoglobin 6.7). Bone marrow biopsy April 2007 nondiagnostic. Etiology multifactorial - in part due to iron deficiency from GI bleeding, in part due to CRI. Shortly after initial presentation the patient received multiple blood transfusions, iron infusions, and EPO injections with resolution of her anemia. She developed recurrent anemia January 2019 due to an upper GI bleed from peptic ulcer disease. With appropriate management her anemia initially returned to baseline. However, since 2020 her anemia worsened as a result of chronic renal insufficiencyand the patient became symptomatic with severe fatigue. For the treatment of renal failure induced anemia the patient was started on Aranesp 11/29/2021, with plans to give as needed to maintain hemoglobin 10-11. Since starting Aranesp she has clinically improved and her CBC has improved significantly. She last received Aranesp 02/06/2023 Her hemoglobin today is >11, therefore she will not receive Aranesp. We will see her back in 6 months for follow-up and labs. She will receive Aranesp as needed if hemoglobin drops below 11. 2. 280.9 History of iron deficiency The patient has a long history of intermittent iron deficiency secondary to GI bleeding. Previous GI evaluation revealed evidence of gastric bleeding from a hiatal hernia. January 2019 she was found tohave peptic ulcer disease with bleeding. For the treatment of iron deficiency she has received ironsupplements in the past. Current iron stores are [...] months since September 2016, currently given at [facility]. Continue management per PCP. 6. Type 2 diabetes mellitus without complication, without long-term current use of insulin ([facility]) - ICD9: 250.00, ICD10: E11.9 Stable off therapy. Continue management per PCP. Per patient request we will check her hemoglobin A1c today. Maranda Schmid APRN.COMPUTER NUMERIC CONTROL SETTER CC: Dr. Dolores Benito spent a total of 20 minutes on the date of the service which included preparing to see the patient, [id number] patient care, completing clinical documentation, obtaining and/or reviewing separately obtained history, performing a medically appropriate examination, counseling and educating the pat ient/family/caregiver, ordering medications, tests, or procedures, independently interpreting results (not separately reported), and communicating results to the patient/family/caregiver. documented in this encounterL[facility] Telephone encounter Note * Telephone Encounter - Val Buchanan MA - 08/24/2024 11:26 AM EST Patient coming in 09/02/24 for follow up with labs. Please add lab orders. Thanks. Val Buchanan MA [facility]11-05-2024 Miscellaneous Notes* Telephone Encounter - Val Buchanan MA - 08/24/2024 11:26 AM EST Patient coming in 09/02/24 for follow up with labs. Please add lab orders. Thanks. Val Buchanan MA documented in this encounterLake [facility] History of Present illness Narrative* Chantal Ward DPM - 07/09/2024 11:00 AM EDT Subjective Patient ID: Henrietta Gross is a 84 y.o. female who presents for Toenail Care. HPI Tender callous Lft foot more than rt History of Present Illness Diabetic/Routine Nail Care: Locationnails on bilateral feet. Severity of symptomsmild. Onsetgradual. Statusno change. Contexthard to trim, hard to reach. NAILSthickened, discolored, pain. Relieved bydebridement, filing down nails, clipping nails. History of ulcers/wounds no. PCP Dr Alex Nix Date of Last visit 06-04-24 Aggravated byshoe gear, pressure. tender callus left more than right Last BS 185 ROS General: Chillsdenies. Feverdenies. Musculoskeletal: muscle weaknessdenies. Bone/joint symptomsdenies. Peripheral Vascular: Edemadenies. Hx of blood clots in legsdenies. Raynaud'sdenies. Rest pain denies. Ulceration of feetdenies. Varicose veinsdenies. Skin: Hyperpigmentationdenies. Nail changesdenies. Rashdenies. Skin lesion(s)denies. Neurologic: Gait abnormalitydenies. Tingling/Numbnessdenies. Current Medications Current Outpatient Medications: amLODIPine (Norvasc) 5 MG tablet, 1 (one) time each day at the same time., Disp: , Rfl: Calcium Carbonate-Vit D-Min (Calcium 600+D Plus Minerals) 600-400 MG-UNIT tablet, every 12 (twelve)hours., Disp: , Rfl: carvedilol (Coreg) 6.25 MG tablet, take 1 tablet (6.25MG) by oral route 2 times every day with foodOral, Disp: , Rfl: cholecalciferol (KP Vitamin D) 25 MCG (1000 UT) capsule, take 1 by Oral route every day Oral, Disp:, Rfl: denosumab (Prolia) 60 MG/ML solution prefilled syringe, Subcutaneous, Disp: , Rfl: famotidine (Pepcid) 20 MG tablet, every 12 (twelve) hours., Disp: , Rfl: fenofibrate (Triglide) 160 MG tablet, 1 (one) time each day at the same time., Disp: , Rfl: gabapentin (Neurontin) 100 MG capsule, every 8 (eight) hours., Disp: , Rfl: magnesium oxide (Mag-Ox) 400 MG tablet, Take 400 mg by mouth in the morning., Disp: , Rfl: Mathews 3 340 MG capsule delayed-release, 1 capsule [...] (htn) Father Objective Foot Exam General Examination: alert, well hydrated, in no distress , awake, aware of surroundings. Dermatologic: HYPERKERATOSIS: rt sub cun , mod left with redness and pain. NAIL [...] . 5Long, Thick, Crumbly, Deformed, Discolored, Brittle, Dystrophic.3mm Nail Pathology: Right Foot: 1 (great toe)Long, Thick, Crumbly, Deformed, Discolored, Brittle, Dystrophic 5mm. 2Long, Thick, Crumbly, Deformed, Discolored, Brittle, Dystrophic 4mm. 3Long, Thick, . 4Long, Thick, Crumbly, Deformed, Discolored, Brittle, Dystrophic. 5Long, Thick, Crumbly, Deformed, Discolored, Brittle, Dystrophic.3mm POP 1. Orthopedic: FOOT MORPHOLOGY:severe valgus ankle [...] digits. mild edema. 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 Nails: all thick and dystrophic nails debrided of all affected and loose material All of the nondystrophic nails were debrided Callus: all hyperkeratotic tissue debrided to all areas described above sharply with a #15 blade bilat documented in this encounterParkland Health [id number] Telephone encounter Note* Telephone Encounter - Pool Escobedo RN - 02/27/2024 9:36 AM EDT Labs faxed to Dr Dinah Escobedo RN [facility]05[facility] Miscellaneous Notes* Telephone Encounter - Pool Escobedo RN - 02/27/2024 9:36 AM EDT Labs faxed to Dr Dinah Escobedo RN * Telephone Encounter - Pool Escobedo RN - 02/27/2024 9:35 AM EDT ----- Message from Atif Yousif MD sent at 02/27/2024 7:13 AM EDT ----- Please fax labs to the patient's PCP. documented in this encounterL[facility] Telephone encounter Note * Telephone Encounter - Pool Escobedo RN - 02/27/2024 9:35 AM EDT ----- Message from Atif Yousif MD sent at 02/27/2024 7:13 AM EDT ----- Please fax labs to the patient's PCP. [facility] History of Present illness Narrative* Atif Yousif MD - 02/25/2024 5:01 PM EDT PATIENT NAME: Henrietta Gross DATE: 02/26/2024 PRIMARY CARE PHYSICIAN: Dr. Alex Nix OTHER PHYSICIANS: Dr. Holden (pain management), Dr. Flores, Dr. Amin Portions of this encounter note have been copied from the note from 08/21/2023 and has been updated where appropriate, and reflect my current medical decision making from today. CC: This is an 84 year old female with chronic anemia, seen for scheduled follow-up. INTERIM HISTORY: Since the patient's last visit here she has had no significant medical changes. She remains on a low-carb diet for her recent diagnosis of type 2 diabetes. She denies any evidence of bleeding or bruising. Overall she feels well with no particular complaints. MEDICATIONS: HYDROcodone-Acetaminophen (NORCO) 7.5-325 mg per tablet TAKE 1 TABLET BY MOUTH 3 TIMES A DAY NEEDED FOR PAIN calcium carbonate/vitamin D3 (CALCIUM 600 + D ORAL) Take by mouth. famotidine (PEPCID) 20 mg tablet Take by mouth twice daily. amLODIPine (NORVASC) 5 mg tablet fenofibrate (LOFIBRA) 134 mg capsule Take 134 mg by mouth daily at bedtime. udbqt-4o-ogn-epa-fish oil 300-1,000 mg cpDR Take by mouth. [...] seizures or tremors. PHYSICAL EXAM: Vitals: BP 148/87 Pulse 70 Temp 36.6 C (97.8 F) (Temporal) Resp 16 Ht 152.4 cm (5') Wt 69.4 kg (153 lb) SpO2 96% BMI 29.88 kg/m ECOG 1 Exam limited to gross [...] petechiae. LABORATORY DATA: Hemoglobin (g/dL) Date Value 02/26/2024 11.8 12/13/2021 11.6 Hematocrit (%) Date Value 02/26/2024 35.3 12/13/2021 37.0 WBC (k/uL) Date Value 02/26/2024 4.97 12/13/2021 4.90 Platelet Count (k/uL) Date Value 02/26/2024 203 12/13/2021 213 ASSESSMENT/PLAN: 1. 285.9 Anemia (primary diagnosis) Severe anemia initially discovered February 2007 (hemoglobin 6.7). Bone marrow biopsy April 2007 nondiagnostic. Etiology multifactorial - in part due to iron deficiency from GI bleeding, in part due to CRI. Shortly after initial presentation the patient received multiple blood transfusions, iron infusions, and EPO injections with resolution of her anemia. She developed recurrent anemia January 2019 due to an upper GI bleed from peptic ulcer disease. With appropriate management her anemia initially returned to baseline. However, since 2020 her anemia worsened as a result of chronic renal insufficiencyand the patient became symptomatic with severe fatigue. For the treatment of renal failure induced anemia the patient was started on Aranesp 11/29/2021, with plans to give as needed to maintain hemoglobin 10-11. Since starting Aranesp she has clinically improved and her CBC has improved significantly. She last received Aranesp 02/06/2023 Her hemoglobin today is >11, therefore she will not receive Aranesp. I will see her back in 6 months for follow-up and labs. She will receive Aranesp as needed if hemoglobin drops below 11. 2. 280.9 History of iron deficiency The patient has a long history of intermittent iron deficiency secondary to GI bleeding. Previous GI evaluation revealed evidence of gastric bleeding from a hiatal hernia. January 2019 she was found tohave peptic ulcer disease with bleeding. For the treatment of iron deficiency she has received ironsupplements in the past. Current iron stores are [...] months since September 2016, currently given at [facility].. Continue management per PCP. 6. Type 2 diabetes mellitus without complication, without long-term current use of insulin (HCC) - ICD9: 250.00, ICD10: E11.9 Stable off therapy. Continue management per PCP. Per patient request we will check her hemoglobin A1c today. Atif Yousif MD CC: Dr. Amin documented in this encounterL[facility] History of Present illness Narrative* Chantal Ward, DPM - 11/27/2023 11:00 AM EST Subjective Patient ID: Henrietta Gross is a 83 y.o. female who presents [...] Plus Minerals) 600-400 MG-UNIT tablet, every 12 (twelve)hours., Disp: , Rfl: carvedilol (Coreg) 6.25 MG tablet, take 1 tablet (6.25MG) by oral route 2 times every day with foodOral, Disp: , Rfl: cholecalciferol (KP Vitamin D) 25 MCG (1000 UT) capsule, take 1 by Oral route every day Oral, Disp:, Rfl: denosumab (Prolia) 60 MG/ML solution prefilled syringe, Subcutaneous, Disp: , Rfl: famotidine (Pepcid) 20 MG tablet, every 12 (twelve) hours., Disp: , Rfl: fenofibrate (Triglide) 160 MG tablet, 1 (one) time each day at the same time., Disp: , Rfl: gabapentin (Neurontin) 100 MG capsule, every 8 (eight) hours., Disp: , Rfl: Mathews 3 340 MG capsule delayed-release, 1 capsule [...] with a #15 blade documented in this encounterParkland Health [id number] Evaluation note* Encounter Date Diagnosis Assessment Notes Treatment Notes Treatment Clinical Notes Oct, Lumbar spondylosis (ICD-10 - M47 .816) [facility] 10-28-2023 History general Narrative - Reported* Type Description Date Medical History ACUTE KIDNEY INJURY Medical HistoryHYPERTENSIVE KIDNEY DISEASE STAGE 3 A CHRONIC KIDNEY DISEASE Medical HistoryANEMIAMedical HistoryHISTORY OF GASTRIC ULCERMedical History PELVIS FRACTUREMedical HistoryLOW BACK FRACTURESSurgical [id number] HistoryLAMINECTOMYSurgical HistoryFORAMINOTMY L2-5Surgical [id number] Surgical HistoryCOLONOSCOPY4/2019Surgical HistoryLEFT TKA4/2009Surgical History EGD7/2017Hospitalization HistorySEE ABOVEHospitalization HistoryELEVATED POTASSIUM LEVEL08/2021 [facility] 10-18-2023 History general Narrative - Reported* Type Description Date Medical History ACUTE KIDNEY INJURY Medical HistoryHYPERTENSIVE KIDNEY DISEASE STAGE 3 A CHRONIC KIDNEY DISEASE Medical HistoryANEMIAMedical HistoryHISTORY OF GASTRIC ULCERMedical History PELVIS FRACTUREMedical HistoryLOW BACK FRACTURESSurgical [id number] HistoryLAMINECTOMYSurgical HistoryFORAMINOTMY L2-5Surgical [id number] Surgical HistoryCOLONOSCOPY4/2019Surgical HistoryLEFT TKA4/2009Surgical History EGD7/2017Hospitalization HistorySEE ABOVEHospitalization HistoryELEVATED POTASSIUM LEVEL08/2021 [facility] 10-17-2023 Evaluation note* Encounter Date Diagnosis Assessment Notes Treatment Notes Treatment Clinical Notes Jul, Lumbar spondylosis (ICD-10 - M47 .816) [facility] 09-07-2023 History of Present illness Narrative* Shanna Lantigua RN - 06/26/2023 10:44 AM EDT Hgb 11 today. Does not meet parameters for aranesp. No injection today. Pt given copy of labs and agrees with plan. Will make/keep next appointment. documented in this encounterLake [facility] Miscellaneous Notes* Telephone Encounter - Laurita Brady RN - 06/20/2023 1:13 PM EDT Henrietta will be in clinic for a blood draw and possible aranesp on 06/26/23. Although she hasn't required the injection since January we should still maybe have aranesp orders in place in case she requiresit. It's up to you but wanted to make you aware we currently have no orders. Laurita Brady RN documented in this encounterLake [facility]08-30-2023 Evaluation note* Encounter Date Diagnosis Assessment Notes Treatment Notes Treatment Clinical Notes May, Type 2 diabetes matilda itus with hyperglycemia, without long-term current use of [...] Microalbumin, Dilated eye exam and Foot exam May,Elevated cholesterol (ICD-10 - E78.00)Instructed on diet and exercise with continued statin therapy.Discussed the beneficial effects of lo wering cholesterol in reducing the risk for cerebrovascular and cardiovascular disease. 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 They are also encouraged to continue exercise to achieve/maintain a normal BMI. May,astroesophageal reflux disease with esophagitis without hemorrhage (ICD-10 - K21.00)Diet instructions: Smaller portions, avoid eating and laying flat, avoid eating or drinking prior to bedtime. Weight loss. May,hronic venous insufficiency (ICD-10 - I87.2)Avoid salt and elevate lower extremities, support stockings, inspect legs and feet daily for blisters and ulcerations. May,hronic kidney disease (CKD), stage IV (severe) (ICD-10 - N18.4)The patient is instructed on adequate control of hypertension and diabetes, if appropriate. They are also educated on the associated risks of NSAIDs and PPI use with kidney disease. They were instructed on adequate fluid balance and to avoid dehydration. May,ge-related osteoporosis without current pathological fracture (ICD- 10 - M81.0)No acute fractures Due for Prolia Continue Ca and Vit D supplements May,ruit of right carotid artery (ICD-10 - R09.89)Stable Continue ASA May,Lumbar spondylosis (ICD-10 - M47.816)This patient is aware of the benefits associated with ELAINA: With continued use, the patient reduces the risk for ID, CVA, HTN, cardiac dysrhythmias and sudden cardiac deaths.The patient is also aware of the association between ELAINA and morning headaches, daytime somnolence, fatigue and obesity, whichalso has been improved with continued use.The patient is compliant with treatment, wearing the equipment every night for greater than 4 hours.The patient is instructed to continue use of the CPAP forOSA treatment. [facility] 08-30-2023 History general Narrative - Reported* Type Description Date Medical History ACUTE KIDNEY INJURY Medical HistoryHYPERTENSIVE KIDNEY DISEASE STAGE 3 A CHRONIC KIDNEY DISEASE Medical HistoryANEMIAMedical HistoryHISTORY OF GASTRIC ULCERMedical History PELVIS FRACTUREMedical HistoryLOW BACK FRACTURESSurgical [id number] HistoryLAMINECTOMYSurgical HistoryFORAMINOTMY L2-5Surgical [id number] Surgical HistoryCOLONOSCOPY01/2019Surgical HistoryLEFT TKA/2008Surgical History EGD7/2017Hospitalization HistorySEE ABOVEHospitalization HistoryELEVATED POTASSIUM LEVEL08/2021 [facility] 08-25-2023 History general Narrative - Reported* Type Description Date Medical History ACUTE KIDNEY INJURY Medical HistoryHYPERTENSIVE KIDNEY DISEASE STAGE 3 A CHRONIC KIDNEY DISEASE Medical HistoryANEMIAMedical HistoryHISTORY OF GASTRIC ULCERMedical History PELVIS FRACTUREMedical HistoryLOW BACK FRACTURESSurgical [id number] HistoryLAMINECTOMYSurgical HistoryFORAMINOTMY L2-5Surgical [id number] Surgical HistoryCOLONOSCOPY01/2019Surgical HistoryLEFT TKA/2008Surgical History EGD7/2017Hospitalization HistorySEE ABOVEHospitalization HistoryELEVATED POTASSIUM LEVEL08/2021 [facility] 08-10-2023 Evaluation note* Encounter Date Diagnosis Assessment Notes Treatment Notes Treatment Clinical Notes May, 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 She appears to be euvolemic. Continue current medications. May,hronic kidney disease (CKD), stage IV (severe) (ICD-10 - N18.4)She has CKD due to HTN. Her serum Creatinine is 1.4 mg/dl. She has no evidence of proteinuria and hematuria on the UA so suspicion for RPGN is low. She has weakly positive ARLINE but unremarkable ANCA .She has unremarkable serologies for hepatitis and paraproteinemia. She has no evidence of obstructive uropathy on renal ultrasound. I have advised her to avoid the NSAIDs. She is nonimmune to the hepatitis B. May,Secondary hyperparathyroidism (ICD-10 - N25.81)MBD parameters including calcium, phosphorus, PTH and vitamin D are within the goal. May,nemia of renal disease (ICD-10 - D63.1)Hemoglobin is within the goal. Continue to follow with the hematology. May,Hyperuricemia (ICD-10 - E79.0)She has hyperuricemia due to the CKD but denies any recent gout flares. We will continue to monitorwithout medications. May,Hypomagnesemia (ICD-10 - E83.42)She has a hypomagnesemia possibly due to the poor absorption.Continue oral magnesium. May,Murmur (ICD-10 - R01.1)She has a systolic murmur on exam. Will check the echocardiogram to rule out valvular heart disease. [facility] 08-10-2023 History general Narrative - Reported* Type Description Date Medical History ACUTE KIDNEY INJURY Medical HistoryHYPERTENSIVE KIDNEY DISEASE STAGE 3 A CHRONIC KIDNEY DISEASE Medical HistoryANEMIAMedical HistoryHISTORY OF GASTRIC ULCERMedical History PELVIS FRACTUREMedical HistoryLOW BACK FRACTURESSurgical [id number] HistoryLAMINECTOMYSurgical HistoryFORAMINOTMY L2-5Surgical [id number] Surgical HistoryCOLONOSCOPY4/2019Surgical HistoryLEFT TKA4/2009Surgical History EGD7/2017Hospitalization HistorySEE ABOVEHospitalization HistoryELEVATED POTASSIUM LEVEL08/2021 [facility] 07-27-2023 History general Narrative - Reported* Type Description Date Medical History ACUTE KIDNEY INJURY Medical HistoryHYPERTENSIVE KIDNEY DISEASE STAGE 3 A CHRONIC KIDNEY DISEASE Medical HistoryANEMIAMedical HistoryHISTORY OF GASTRIC ULCERMedical History PELVIS FRACTUREMedical HistoryLOW BACK FRACTURESSurgical [id number] HistoryLAMINECTOMYSurgical HistoryFORAMINOTMY L2-5Surgical [id number] Surgical HistoryCOLONOSCOPY4/2019Surgical HistoryLEFT TKA4/2009Surgical History EGD7/2017Hospitalization HistorySEE ABOVEHospitalization HistoryELEVATED POTASSIUM LEVEL08/2021 [facility] 07-18-2023 History general Narrative - Reported* Type Description Date Medical History ACUTE KIDNEY INJURY Medical HistoryHYPERTENSIVE KIDNEY DISEASE STAGE 3 A CHRONIC KIDNEY DISEASE Medical HistoryANEMIAMedical HistoryHISTORY OF GASTRIC ULCERMedical History PELVIS FRACTUREMedical HistoryLOW BACK FRACTURESSurgical [id number] HistoryLAMINECTOMYSurgical HistoryFORAMINOTMY L2-5Surgical [id number] Surgical HistoryCOLONOSCOPY4/2019Surgical HistoryLEFT TKA4/2009Surgical History EGD7/2017Hospitalization HistorySEE ABOVEHospitalization HistoryELEVATED POTASSIUM LEVEL08/2021 [facility] 07-13-2023 History of Present illness Narrative* Atif Yousif MD - 05/01/2023 8:11 AM EDT PATIENT NAME: Henrietta Gross DATE: 05/01/2023 PRIMARY CARE PHYSICIAN: Dr. Alex Nix OTHER PHYSICIANS: Dr. Holden (pain management), Dr. [...] 134 mg by mouth daily at bedtime. zrqor-1e-jnf-epa-fish oil 300-1,000 mg cpDR Take by mouth. [...] months since September 2016, currently given at [facility].. Continue management per PCP. Atif Yousif MD CC: Dr. Amin documented in this encounterLake [facility] History of Present illness Narrative* Chelle Beckford RN - 03/20/2023 1:41 PM EDT Hgb 11.7, parameter not met for Aranesp. Pt notified and verbalizes understanding. Chelle Beckford RN documented in this encounterLake [facility] Evaluation note* Encounter Date Diagnosis Assessment Notes Treatment Notes Treatment Clinical Notes February, Type 2 diabetes matilda itus with hyperglycemia, without long-term current use of [...] < 150, 2 hour PP < 200 February,Elevated cholesterol (ICD-10 - E78.00)Instructed on diet and exercise with continued statin therapy.Discussed the beneficial effects of lo wering cholesterol in reducing the risk for cerebrovascular and cardiovascular disease. 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 They are also encouraged to continue exercise to achieve/maintain a normal BMI. Patient is instructed on home BP measurements: - rest for 5 minutes w/o talking- positioned w/ feeton floor and arm supported- average best 2/3 readings w/ goal < 135-85 February,astroesophageal reflux disease with esophagitis without hemorrhage (ICD-10 - K21.00)Diet instructions: Smaller portions, avoid eating and laying flat, avoid eating or drinking prior to bedtime. Weight loss. February,hronic venous insufficiency (ICD-10 - I87.2)Avoid salt and elevate lower extremities, support stockings, inspect legs and feet daily for blisters and ulcerations. February,hronic kidney disease (CKD), stage IV (severe) (ICD-10 - N18.4)The patient is instructed on adequate control of hypertension and diabetes, if appropriate. They are also educated on the associated risks of NSAIDs and PPI use with kidney disease. They were instructed on adequate fluid balance and to avoid dehydration. February,ge-related osteoporosis without current pathological fracture (ICD- 10 - M81.0)Ca and Vit D supplements. Continue Prolia Monitor GFR February,ruit of right carotid artery (ICD-10 - R09.89)Check carotid [facility] Other 05-08-2023 Evaluation note* Encounter Date Diagnosis Assessment Notes Treatment Notes Treatment Clinical Notes February, Type 2 diabetes matilda itus with hyperglycemia, without long-term current use of insulin (ICD-10 - E11.65) [facility] Other 05-02-2023 History general Narrative - Reported* Type Description Date Medical History ACUTE KIDNEY INJURY Medical HistoryHYPERTENSIVE KIDNEY DISEASE STAGE 3 A CHRONIC KIDNEY DISEASE Medical HistoryANEMIAMedical HistoryHISTORY OF GASTRIC ULCERMedical History PELVIS FRACTUREMedical HistoryLOW BACK FRACTURESSurgical [id number] HistoryLAMINECTOMYSurgical HistoryFORAMINOTMY L2-5Surgical [id number] Surgical HistoryCOLONOSCOPY/2019Surgical HistoryLEFT TKA/2008Surgical History EGD7/2017Hospitalization HistorySEE ABOVEHospitalization HistoryELEVATED POTASSIUM LEVEL08/2021 [facility] Other 05-01-2023 Evaluation note* Encounter Date Diagnosis Assessment Notes Treatment Notes Treatment Clinical Notes February, 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 Monitor for recurrence, avoid abrupt change in head position. Hydrate, avoid skipping meals. Monitor for additional neurologic symptoms and go directly to ER for s/s suggestive of Stroke. If recurs, will pursue further evaluation and treatment February,hronic kidney disease, stage III (moderate) (ICD-10 - N18.30) Hydrate, avoid NSAIDs Treatment of diabetes w/ SGLT-2 may have dual benefit February,Iron deficiency anemia secondary to inadequate dietary iron intake (ICD-10 - D50.8)Check H/H, typically has been stable and her symptoms are more suggestive of vertigo rather than volume depletion from anemia. Monitor for s/s bleeding February,Type 2 diabetes mellitus with hyperglycemia, without long-term current use of insulin (ICD-10 - E11.65) February,ruit of right carotid artery (ICD-10 - R09.89) [facility] Other 05-01-2023 History general Narrative - Reported* Type Description Date Medical History ACUTE KIDNEY INJURY Medical HistoryHYPERTENSIVE KIDNEY DISEASE STAGE 3 A CHRONIC KIDNEY DISEASE Medical HistoryANEMIAMedical HistoryHISTORY OF GASTRIC ULCERMedical History PELVIS FRACTUREMedical HistoryLOW BACK FRACTURESSurgical [id number] HistoryLAMINECTOMYSurgical HistoryFORAMINOTMY L2-5Surgical [id number] Surgical HistoryCOLONOSCOPY/2018Surgical HistoryLEFT TKA/2008Surgical History EGD7/2016Hospitalization HistorySEE ABOVEHospitalization HistoryELEVATED POTASSIUM LEVEL08/2021 [facility] Other 04-29-2023 History general Narrative - Reported* Type Description Date Medical History ACUTE KIDNEY INJURY Medical HistoryHYPERTENSIVE KIDNEY DISEASE STAGE 3 A CHRONIC KIDNEY DISEASE Medical HistoryANEMIAMedical HistoryHISTORY OF GASTRIC ULCERMedical History PELVIS FRACTUREMedical HistoryLOW BACK FRACTURESSurgical [id number] HistoryLAMINECTOMYSurgical HistoryFORAMINOTMY L2-5Surgical [id number] Surgical HistoryCOLONOSCOPY01/2019Surgical HistoryLEFT TKA/2008Surgical History EGD7/2016Hospitalization HistorySEE ABOVEHospitalization HistoryELEVATED POTASSIUM LEVEL08/2021 [facility] Other 04-20-2023 History of Present illness Narrative* Atif Yousif MD - 02/06/2023 7:43 AM EDT PATIENT NAME: Henrietta Gross DATE: 02/06/2023 PRIMARY CARE PHYSICIAN: Dr. Alex Nix OTHER PHYSICIANS: Dr. Holden (pain management), Dr. [...] 134 mg by mouth daily at bedtime. hpsxu-8x-iqe-epa-fish oil 300-1,000 mg cpDR Take by mouth. [...] months since September 2016, currently given at [facility].. Continue management per PCP. Atif Yousif MD CC: Dr. Amin [facility] History general Narrative - Reported* Type Description Date Medical History ACUTE KIDNEY INJURY Medical HistoryHYPERTENSIVE KIDNEY DISEASE STAGE 3 A CHRONIC KIDNEY DISEASE Medical HistoryANEMIAMedical HistoryHISTORY OF GASTRIC ULCERMedical History PELVIS FRACTUREMedical HistoryLOW BACK FRACTURESSurgical [id number] HistoryLAMINECTOMYSurgical HistoryFORAMINOTMY L2-5Surgical [id number] Surgical HistoryCOLONOSCOPY4/2019Surgical HistoryLEFT TKA4/2009Surgical History EGD7/2016Hospitalization HistorySEE ABOVEHospitalization HistoryELEVATED POTASSIUM LEVEL08/2021 [facility] Other 04-10-2023 History general Narrative - Reported* Type Description Date Medical History ACUTE KIDNEY INJURY Medical HistoryHYPERTENSIVE KIDNEY DISEASE STAGE 3 A CHRONIC KIDNEY DISEASE Medical HistoryANEMIAMedical HistoryHISTORY OF GASTRIC ULCERMedical History PELVIS FRACTUREMedical HistoryLOW BACK FRACTURESSurgical [id number] HistoryLAMINECTOMYSurgical HistoryFORAMINOTMY L2-5Surgical [id number] Surgical HistoryCOLONOSCOPY4/2019Surgical HistoryLEFT TKA4/2009Surgical History EGD7/2016Hospitalization HistorySEE ABOVEHospitalization HistoryELEVATED POTASSIUM LEVEL08/2021 [facility] Other 02-27-2023 Evaluation note* Encounter Date Diagnosis Assessment Notes Treatment Notes Treatment Clinical Notes Nov, Chronic kidney disease (CKD), st age IV (severe) (ICD-10 - N18.4) The patient is instructed on adequate control of hypertension and diabetes, if appropriate. They are also educated on the associated risks of NSAIDs and PPI use with kidney disease. They were instructed on adequate fluid balance and to avoid dehydration. 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 They are also encouraged to continue exercise to achieve/maintain a normal BMI. Nov,nemia of renal disease (ICD-10 - D63.1)Monitor for now, receiving Aranesp w/ Hematology Nov,Elevated cholesterol (ICD-10 - E78.00)Diet and exercise with continued statin therapy. Nov,astroesophageal reflux disease with esophagitis without hemorrhage (ICD-10 - K21.00)Diet instructions: Smaller portions, avoid eating and laying flat, avoid eating or drinking prior to bedtime. Weight loss. Nov,hronic venous insufficiency (ICD-10 - I87.2)Avoid salt and elevate lower extremities, support stockings, inspect legs and feet daily for blisters and ulcerations. 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 She appears to be euvolemic. Continue current medications. Nov,hronic kidney disease (CKD), stage IV (severe) (ICD-10 - N18.4)She has CKD due to HTN. Her Serum Creatinine is 1.6 mg/dl. She has no evidence of proteinuria and hematuria on the UA so suspicion for RPGN is low. She has weakly positive ARLINE but unremarkable ANCA .She has unremarkable serologies for hepatitis and paraproteinemia. She has no evidence of obstructive uropathy on renal ultrasound. I have advised her to avoid the NSAIDs. She is nonimmune to the hepatitis B. Nov,Secondary hyperparathyroidism (ICD-10 - N25.81)MBD parameters including calcium, phosphorus, PTH and vitamin D are within the goal. Nov,nemia of renal disease (ICD-10 - D63.1)Hemoglobin is within the goal. Continue to follow with the hematology. Nov,Hyperuricemia (ICD-10 - E79.0)She has hyperuricemia due to the CKD but denies any recent gout flares. We will continue to monitorwithout medications. Nov,Hypomagnesemia (ICD-10 - E83.42)She has a hypomagnesemia possibly due to the poor absorption. I have ordered oral magnesium. [facility] Other 01-23-2023 History of Present illness Narrative* Atif Yousif MD - 11/11/2022 7:43 AM EST PATIENT NAME: Henrietta Gross DATE: 11/11/2022 PRIMARY CARE PHYSICIAN: Dr. Alex Nix OTHER PHYSICIANS: Dr. Holden (pain management), Dr. [...] 134 mg by mouth daily at bedtime. hvsdn-1y-smd-epa-fish oil 300-1,000 mg cpDR Take by mouth. [...] months since September 2016, currently given at [facility].. Continue management per PCP. Atif Yousif MD CC: Dr. Amin documented in [facility] History of Present illness Narrative* Maranda Schmid APRN.COMPUTER NUMERIC CONTROL SETTER - 09/16/2022 3:00 PM EST PATIENT NAME: Henrietta Gross DATE: 09/16/2022 PRIMARY CARE PHYSICIAN: Dr. Alex Nix OTHER PHYSICIANS: Dr. Holden (pain management), Dr. Flores, Dr. Amin Portions of this encounter note have been copied from the note from 07/08/2022 and has been updated where appropriate, and reflect my current medical decision making from today. CC: This is an 82 year old female with a history of chronic anemia, seen for scheduled follow-up. INTERIM HISTORY: Henrietta Gross returns for follow-up. Her last Aranesp injection [...] 134 mg by mouth daily at bedtime. rjfhe-7p-wth-epa-fish oil 300-1,000 mg cpDR Take by mouth. [...] months since September 2016, currently given at [facility].. Continue management per PCP. Maranda Schmid APRN.CNP CC: Dr. Dolores Benito spent a total of 30 minutes on the date of the service which included preparing to see the patient, [id number] patient care, completing clinical documentation, obtaining and/or reviewing separately obtained history, performing a medically appropriate examination, counseling and educating the pat ient/family/caregiver, ordering medications, tests, or procedures, independently interpreting results (not separately reported), and communicating results to the patient/family/caregiver. documented in this encounterL[facility] History of Present illness Narrative* Atif Yousif MD - 07/08/2022 7:19 AM EDT PATIENT NAME: Henrietta Gross DATE: 07/08/2022 PRIMARY CARE PHYSICIAN: Dr. Alex Nix OTHER PHYSICIANS: Dr. Holden (pain management), Dr. [...] 134 mg by mouth daily at bedtime. nydxm-2e-vnc-epa-fish oil 300-1,000 mg cpDR Take by mouth. [...] renal function. I suggested she ask her molecular pathologist (Dr. Amin) for his recommendations. 4. 555.9 Crohn's disease Currently stable. Continue management per PCP/gastroenterology. 5. Osteoporosis The patient has been on Prolia every 6 months since September 2016, currently given at [facility].. Continue management per PCP. Atif Yousif MD CC: Dr. 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 She appears to be euvolemic. Continue current medications. May,hronic kidney disease (CKD), stage IV (severe) (ICD-10 - N18.4)She has CKD due to HTN. Her Serum Creatinine is 1.6 mg/dl. She has no evidence of proteinuria and hematuria on the UA so suspicion for RPGN is low. She has weakly positive ARLINE but unremarkable ANCA .She has unremarkable serologies for hepatitis and paraproteinemia. She has no evidence of obstructive uropathy on renal ultrasound. I have advised her to avoid the NSAIDs. She is nonimmune to the hepatitis B. May,econdary hyperparathyroidism (ICD-10 - N25.81)MBD parameters including calcium, phosphorus, PTH and vitamin D are within the goal. May,nemia of renal disease (ICD-10 - D63.1)Hemoglobin is within the goal. Continue to follow with the hematology. [facility] Other 08-02-2022 History general Narrative - Reported* Type Description Date Medical History ACUTE KIDNEY INJURY Medical HistoryHYPERTENSIVE KIDNEY DISEASE STAGE 3 A CHRONIC KIDNEY DISEASE Medical HistoryANEMIAMedical HistoryHISTORY OF GASTRIC ULCERMedical History PELVIS FRACTUREMedical HistoryLOW BACK FRACTURESSurgical [id number] HistoryLAMINECTOMYSurgical HistoryFORAMINOTMY L2-5Surgical [id number] Surgical HistoryCOLONOSCOPY01/2019Surgical HistoryLEFT TKA/2008Surgical History EG/2016Hospitalization HistorySEE ABOVEHospitalization HistoryELEVATED POTASSIUM LEVEL08/2021 [facility] Other 06-27-2022 History of Present illness Narrative* Atif Yousif MD - 04/15/2022 8:36 AM EDT PATIENT NAME: Henrietta Gross DATE: 04/15/2022 PRIMARY CARE PHYSICIAN: Dr. Alex Nix OTHER PHYSICIANS: Dr. Holden (pain management), Dr. [...] 134 mg by mouth daily at bedtime. apgrq-7s-unp-epa-fish oil 300-1,000 mg cpDR Take by mouth. [...] months since September 2016, currently given at [facility].. Continue management per PCP. Atif Yousif MD CC: Dr. Amin documented in [facility] encounterL[facility] History of Present illness Narrative* Atif Yousif MD - 2022 11:43 AM EDT PATIENT NAME: Henrietta Gross DATE: 2022 PRIMARY CARE PHYSICIAN: Dr. Alex Nix OTHER PHYSICIANS: Dr. Holden (pain management), Dr. [...] 134 mg by mouth daily at bedtime. gcwcd-5s-wcp-epa-fish oil 300-1,000 mg cpDR Take by mouth. [...] months since September 2016, currently given at [facility].. Continue management per PCP. Atif Yousif MD CC: Dr. 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 She appears to be euvolemic. Continue current medications. Dec,hronic kidney disease (CKD), stage IV (severe) (ICD-10 [...] She is nonimmune to the hepatitis B. Dec,econdary hyperparathyroidism (ICD-10 - N25.81) MBD parameters including calcium, phosphorus, PTH and vitamin D are within the goal. Dec,nemia of renal disease (ICD-10 - D63.1) Hemoglobin is within the goal. Continue to follow with the hematology. [facility] [employer] Other 12-28-2021 Evaluation note* Encounter Date Diagnosis Assessment Notes Treatment Notes Treatment Clinical Notes Sep, NESHA (acute kidney injury) (ICD-1 0 - N17.9) She likely has ATN in [...] She is nonimmune to the hepatitis B. Sep,nemia (ICD-10 - D64.9) Hemoglobin is low. Continue to follow with the hematology. Sep,hronic kidney disease, stage III (moderate) (ICD-10 - N18.30) She is a chronic kidney disease due to longstanding hypertension baseline creatinine around 1.3 mg/dL. Sep,en hy kid w cr kid I-IV (ICD-10 - I12.9) Blood pressure is controlled. She appears to be euvolemic. Continue current medications. Sep,econdary hyperparathyroidism (ICD-10 - N25.81) MBD parameters including calcium, phosphorus, PTH and vitamin D are within the goal. [facility] Other Evaluation + Plan note Future Appointments Appointment Date:06/20/2022 02:00:00 PM Scheduled Provider:Mikey Holden MD Location:[facility]ments Appointment Date:08/29/2022 01:00:00 PM Scheduled Provider:Mikey Holden MD Location:[facility] App[facility]ment Type[facility] Future Appointments Appointment Date:12/12/2022 09:15:00 AM Scheduled Provider:Mikey Holden MD Location:[facility] Appointment Type:[facility] Diagnosis Anemia of chronic renal failure, stage 3b (HCC)- Primary Chronic renal impairment, stage 3b (HCC) 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 Essential hypertension Unspecified essential hypertension [facility]* Diagnosis Anemia of chronic renal failure, stage 3b (HCC)- Primary [facility]* Diagnosis Iron deficiency- Primary Iron deficiency anemia, unspecified [facility]* Diagnosis Anemia of chronic renal failure, stage 3b (HCC)- Primary [facility]* Diagnosis Anemia of chronic renal failure, stage 3b (HCC)- Primary Chronic renal impairment, stage 3b (HCC) 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 Essential hypertension Unspecified essential hypertension documented [facility] this [facility] noteNo InformationNort Bluen[place] Other Evaluation note* Diagnosis Anemia of chronic renal failure, stage 3b (HCC)- Primary Chronic renal impairment, stage 3b (HCC) Iron 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 to blood loss (chronic) [facility]* Diagnosis Anemia of chronic renal failure, stage 3b (HCC)- Primary [facility] this [facility]* Diagnosis Anemia of chronic renal failure, stage 3b (HCC)- Primary 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 Essential hypertension Unspecified essential hypertension [facility] this [facility]* Diagnosis Anemia of chronic renal failure, stage 3b (HCC)- Primary Chronic renal impairment, stage 3b (HCC) History of iron deficiency Personal history of diseases of blood and blood-forming organs documented [facility]* Diagnosis Anemia of chronic renal failure, stage 3b (HCC)- Primary Chronic renal impairment, stage 3b (HCC) History of iron deficiency Personal history of diseases of blood and blood-forming organs documented [facility] this [facility]* Diagnosis Anemia of chronic renal failure, stage 3b (HCC)- Primary Chronic renal impairment, stage 3b (HCC) History of iron deficiency Personal history of diseases of blood and blood-forming organs Primary osteoarthritis involving multiple joints Essential hypertension Unspecified essential hypertension [facility]* Diagnosis Anemia of chronic renal failure, stage 3b (HCC)- Primary [facility] this [facility]* Diagnosis Idiopathic progressive polyneuropathy- Primary Onychomycosis Dermatophytosis of nail Corns and callosities [facility]* Diagnosis Onset Date Resolution Status Anemia of renal disease acuteBen hy kid w cr kid I-IVacuteChronic kidney disease (CKD), stage IV (severe)acuteHyperuricemiaacuteHypomagnesemiaacuteSecondary hyperparathyroidism acuteType 2 diabetes mellitus with diabetic chronic kidney diseaseacute [facility] Work Phone: Evaluation note* Diagnosis Anemia of chronic renal failure, stage 3b (HCC) (HCC)- Primary Chronic renal impairment, stage 3b (HCC) History of iron deficiency Personal history of diseases of blood and blood-forming organs Type 2 diabetes mellitus without complication, without long-term current use of insulin (HCC) documented in this encounter [facility]* Diagnosis Onset Date Resolution Status Chronic kidney disease (CKD) acuteHypercholesterolemiaacuteLumbar spondylosisacuteOpiate analgesic use agreement existsacuteOsteoporosisacutePrimary hypertensionacuteType 2 diabetes mellitus with hyperglycemiaacuteAnemia of renal diseaseacuteBen hy kid w cr kid I-IVacuteCKD (chronic kidney disease) stage 3, GFR 30-59 ml/minacute HyperuricemiaacuteHypomagnesemiaacuteSecondary hyperparathyroidismacuteType 2 diabetes mellitus with hyperglycemiaacute [facility] Work Phone: Evaluation note* Diagnosis Onset Date Resolution Status Chronic kidney disease (CKD) acuteHypercholesterolemiaacuteLumbar spondylosisacuteOpiate analgesic use agreement existsacuteOsteoporosisacutePrimary hypertensionacuteType 2 diabetes mellitus with hyperglycemiaacuteAnemia of renal diseaseacuteBen hy kid w cr kid I-IVacuteCKD (chronic kidney disease) stage 3, GFR 30-59 ml/minacute HyperuricemiaacuteHypomagnesemiaacuteSecondary hyperparathyroidismacuteType 2 diabetes mellitus with diabetic chronic kidney diseaseSelect [facility]: Evaluation note* Diagnosis Anemia of chronic renal failure, stage 3b (HCC) (HCC)- Primary [facility]* Diagnosis Iron deficiency anemia due to chronic blood loss- Primary Iron deficiency anemia secondary to blood loss (chronic) Iron deficiency Iron deficiency anemia, unspecified Chronic renal impairment, stage 3 (moderate), unspecified whether stage 3a or 3b CKD (HCC) Type 2 diabetes mellitus without complication, without long-term current use of insulin (HCC) Crohn's disease without complication, unspecified gastrointestinal tract location (HCC) [facility]* Diagnosis Idiopathic progressive polyneuropathy- Primary Onychomycosis Dermatophytosis of nail Corns and callosities documented in this encounter [facility] Healthcare[facility]* Diagnosis Idiopathic progressive polyneuropathy- Primary Onychomycosis Dermatophytosis of nail Corns and callosities Pain in toes of both feet Pain in both feet documented in this encounter [facility] HealthcareEvaluation note* Diagnosis Onset Date Resolution Status Admit Date Chronic kidney disease (CKD) acuteMarch 2024 10:25amHypercholesterolemiaacuteMarch 2024 10:25am Lumbar spondylosisacuteMarch 2024 10:25amOpiate analgesic use agreement existsacuteDecch 2024 10:25amOsteoporosisacuteMarch 2024 10:25am Primary hypertensionacuteMarch 2024 10:25amType 2 diabetes mellitus with hyperglycemiaacuteDecch 2024 10:25am [facility] Work Phone: Evaluation note* Diagnosis Basal cell carcinoma (BCC) of right lower eyelid- Primary Malignant neoplasm of skin of eyelid, including canthus Other malignant neoplasm of skin of eyelid, including canthus Hemorrhage of eyelid documented in this encounter [facility] HealthcareEvaluation note* Diagnosis Idiopathic progressive polyneuropathy- Primary Onychomycosis Dermatophytosis of nail Corns and callosities Pain in both feet documented in this encounter [facility] HealthcareEvaluation note* Diagnosis Malignant neoplasm of skin of eyelid, including canthus- Primary Other malignant neoplasm of skin of eyelid, including canthus Basal cell carcinoma (BCC) of right lower eyelid Hemorrhage of eyelid documented in this encounter [facility] HealthcareEvaluation note* Diagnosis Basal cell carcinoma (BCC) of right lower eyelid- Primary Malignant neoplasm of skin of eyelid, including canthus Other malignant neoplasm of skin of eyelid, including canthus documented in this encounter [facility] HealthcareEvaluation note* Diagnosis Iron deficiency- Primary Iron deficiency anemia, unspecified Chronic renal impairment, stage 3 (moderate), unspecified whether stage 3a or 3b CKD (HCC) Type 2 diabetes mellitus without complication, without long-term current use of insulin (HCC) Crohn's disease without complication, unspecified gastrointestinal tract location (HCC) [facility]* Diagnosis Iron deficiency anemia due to chronic blood loss- Primary Iron deficiency anemia secondary to blood loss (chronic) Chronic renal impairment, stage 3 (moderate), unspecified whether stage 3a or 3b CKD (HCC) Iron deficiency Iron deficiency anemia, unspecified [facility] Diagnosis Idiopathic progressive polyneuropathy- Primary Onychomycosis Dermatophytosis of nail Corns and callosities documented in this encounter [facility] HealthcareEvaluation [facility]* Diagnosis Onset Date Resolution Status Admit Date Chronic kidney disease (CKD) acuteSeptember 2024 10:18amLumbar spondylosisacuteSeptember 2024 10:18amOpiate analgesic use agreement existsacuteSeptember 2024 10:18am OsteoporosisacuteSeptember 2024 10:18amPrimary hypertensionacuteSeptember 2024 10:18amType 2 diabetes mellitus with hyperglycemiaacuteSeptember 2024 10:18am [facility] Work Phone: History general Narrative - Reported* Type Description Date Medical History ACUTE KIDNEY INJURY Medical HistoryHYPERTENSIVE KIDNEY DISEASE STAGE 3 A CHRONIC KIDNEY DISEASE Medical HistoryANEMIAMedical HistoryHISTORY OF GASTRIC ULCERSurgical HistoryTAH 1971Surgical HistoryLAMINECTOMYSurgical HistoryFORAMINOTMY L2-5Surgical History [id number] HistoryCOLONOSCOPY4/2019Surgical HistoryLEFT TKA4/2009 Surgical HistoryEGD7/2017Hospitalization HistorySEE ABOVEHospitalization History ELEVATED POTASSIUM LEVEL08/2021 [facility] Other History general Narrative - Reported* Type Description Date Medical History ACUTE KIDNEY INJURY Medical HistoryHYPERTENSIVE KIDNEY DISEASE STAGE 3 A CHRONIC KIDNEY DISEASE Medical HistoryANEMIAMedical HistoryHISTORY OF GASTRIC ULCERMedical History PELVIS FRACTUREMedical HistoryLOW BACK FRACTURESSurgical [id number] HistoryLAMINECTOMYSurgical HistoryFORAMINOTMY L2-5Surgical [id number] Surgical HistoryCOLONOSCOPY/2019Surgical HistoryLEFT TKA4/2009Surgical History EGD7/2016Hospitalization HistorySEE ABOVEHospitalization HistoryELEVATED POTASSIUM LEVEL08/2021 [facility] Other Hospital course Narrative No data available for this section [facility] No data available for this section [facility] HospitalProgress note No data available for this section [facility] HospitalReason for referral (narrative)No reason for referral information availableMarion Hospital Work Phone: Medications Administered Section Medication OrderMAR ActionAction DateDoseRateSite Darbepoetin Rosemary In Polysorbat 200 mcg injection (ARANESP) 200 mcg, SUBCUTANEOUS, ONCE, 1 dose, On Dilia 12/22 at 1500, Protect from light REFRIGERATE Given02/28/2022 2:48 PM [id number] mcgArm, RightMedication OrderMAR ActionAction DateDoseRateSite Darbepoetin Rosemary In Polysorbat 200 mcg injection (ARANESP) 200 mcg, SUBCUTANEOUS, ONCE, 1 dose, On Fri04/15/22 at 1600, Protect from light REFRIGERATE Given04/15/2022 3:56 PM [id number] mcgArm, RightMedication OrderMAR ActionAction DateDoseRateSite Darbepoetin Rosemary In Polysorbat 200 mcg injection (ARANESP) 200 mcg, SUBCUTANEOUS, ONCE, 1 dose, On Fri09/16/22 at 1530, Protect from light REFRIGERATE Given09/16/2022 3:24 PM [id number] mcgArm, LeftMedication OrderMAR ActionAction Date DoseRateSite Darbepoetin Rosemary In Polysorbat 200 mcg injection (ARANESP) 200 mcg, SUBCUTANEOUS, ONCE, 1 dose, On Fri12/25/22 at 1000, Protect from light REFRIGERATE Given12/25/2022 10:00 AM [id number] mcgArm, RightMedication OrderMAR ActionAction DateDoseRateSite Darbepoetin Rosemary In Polysorbat 200 mcg injection (ARANESP) 200 mcg, SUBCUTANEOUS, ONCE, 1 dose, On Fri02/06/23 at 1000, Protect from light REFRIGERATE Given02/06/2023 9:58 AM [id number] mcgArm, Right Summary Purpose Family History Relationship Condition Age at Onset Recorded Date/T jagdeep brother Unknown Malignant neoplasmUnknownHypertensionUnknowndaughterHeart diseaseUnknownfather DeceasedUnknownNot SpecifiedDeceasedUnknownHistory of strokeUnknown Relationship Condition Age at Onset Recorded Date/T jagdeep brother Unknown Malignant neoplasmUnknownHypertensionUnknowndaughterHeart diseaseUnknownfather DeceasedUnknownmotherDeceasedUnknownHistory of strokeUnknown Advance Directives Advance Directive Response Recorded Date/ Time Advance Directives No November 08, 2023 4:38pm Advance Directive Response Recorded Date/ Time Advance Directives No November 08, 2023 5:38pm Chief Complaint and Reason for Visit Chief Complaint Admit Date 3 month f/u July 06, 2025 10:18am Flu Shot August 04, 2025 2 :12pm Reason for Visit Admit Date Chronic kidney disease (CKD) June 202024 10:18am Lumbar spondylosis July 06, 2025 10:18am Opiate analgesic use agreement exists Se ptember 2024 10:18am Osteoporosis July 06, 2025 10:18am Primary hypertension July 06 10:18am Type 2 diabetes mellitus with hyperglyce massiel July 06, 2025 10:18am Chief Complaint Wellness renal 6 month f/uReason for VisitAnemia of renal disease 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 Chronic kidney disease (CKD), stage IV (severe) Hyperuricemia Hypomagnesemia Secondary hyperparathyroidism Type 2 diabetes mellitus with diabetic chronic kidney disease Chief Complaint Amb Documentation 3 month follow up RENAL 6 MONTH F/UReason for VisitChronic kidney disease (CKD) Hypercholesterolemia Lumbar spondylosis Opiate analgesic use agreement exists Osteoporosis Primary hypertension Type 2 diabetes mellitus with hyperglycemia Anemia of renal disease 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 CKD (chronic kidney disease) stage 3, GFR 30-59 ml/min Hyperuricemia Hypomagnesemia Secondary hyperparathyroidism Type 2 diabetes mellitus with hyperglycemia Chief Complaint Amb Documentation 3 month follow up RENAL 6 MONTH F/U flu shotReason for VisitChronic kidney disease (CKD) Hypercholesterolemia Lumbar spondylosis Opiate analgesic use agreement exists Osteoporosis Primary hypertension Type 2 diabetes mellitus with hyperglycemia Anemia of renal disease 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 CKD (chronic kidney disease) stage 3, GFR 30-59 ml/min Hyperuricemia Hypomagnesemia Secondary hyperparathyroidism Type 2 diabetes mellitus with diabetic chronic kidney disease Chief Complaint Admit Date 6 month f/u December 29, 2024 10: 25am Reason for Visit Admit Date Chronic kidney disease (CKD) December 29, 2024 10:25am Hypercholesterolemia December 29, 2024 10 :25am Lumbar spondylosis December 29, 2024 10: 25am Opiate analgesic use agreement exists [facility] 2024 10:25am Osteoporosis December 29, 2024 10: 25am Primary hypertension December 29, 2024 10 :25am Type 2 diabetes mellitus with hyperglyce massiel December 29, 2024 10:25am Chief Complaint Admit Date 6 month f/u December 29, 2024 10: 25am Cough 2025 3:3 0pm Reason for Visit Admit Date Acute dysfunction of left eustachian tub e December 29, 2024 10:25am Benign paroxysmal positional vertigo of right ear December 29, 2024 10:25am Chronic kidney disease (CKD) December 29, 2024 10:25am Lumbar spondylosis December 29, 2024 10: 25am Opiate analgesic use agreement exists [facility] 2024 10:25am Osteoporosis December 29, 2024 10: 25am Primary hypertension December 29, 2024 10 :25am Type 2 diabetes mellitus with hyperglyce massiel December 29, 2024 10:25am Chief Complaint Admit Date 3 month f/u July 06, 2025 10:18am Additional Source Comments Source Comments (unrecognize d section and content) In the event this informatio n is protected by the Federal Confidentiality of Alcohol and Drug Abuse Patient Records regulations: The Federal rules restrict any use of the information to criminally investigate or prosecute any alcohol or drug abuse patient.[facility] the event this information is protected by the Federal Confidentiality of Alcohol and Drug Abuse Patient Records regulations: The Federal rules restrict any use of the information to criminally investigate or prosecute any alcohol or drug abuse patient.[facility]In the event this information is protected by the Federal Confidentiality of Alcohol and Drug Abuse Patient Records regulations: The Federal rules restrict any use of the information to criminally investigate or prosecute any alcohol or drug abuse patient.[facility]In the event this information is protected by the Federal Confidentiality of Alcohol and Drug Abuse Patient Records regulations: The Federal rules restrict any use of the information to criminally investigate or prosecute any alcohol or drug abuse patient.[facility]In the event this information is protected by the Federal Confidentiality of Alcohol and Drug Abuse Patient Records regulations: The Federal rules restrict any use of the information to criminally investigate or prosecute any alcohol or drug abuse patient.[facility]In the event this information is protected by the Federal Confidentiality of Alcohol and Drug Abuse Patient Records regulations: The Federal rules restrict any use of the information to criminally investigate or prosecute any alcohol or drug abuse patient.[facility] WestIn the event this information is protected by the Federal Confidentiality of Alcohol and Drug Abuse Patient Records regulations: The Federal rules restrict any use of the information to criminally investigate or prosecute any alcohol or drug abuse patient.[facility]In the event this information is protected by the Federal Confidentiality of Alcohol and Drug Abuse Patient Records regulations: The Federal rules restrict any use of the information to criminally investigate or prosecute any alcohol or drug abuse patient.[facility] WestIn the event this information is protected by the Federal Confidentiality of Alcohol and Drug Abuse Patient Records regulations: The Federal rules restrict any use of the information to criminally investigate or prosecute any alcohol or drug abuse patient.[facility]In the event this information is protected by the Federal Confidentiality of Alcohol and Drug Abuse Patient Records regulations: The Federal rules restrict any use of the information to criminally investigate or prosecute any alcohol or drug abuse patient.[facility]In the event this information is protected by the Federal Confidentiality of Alcohol and Drug Abuse Patient Records regulations: The Federal rules restrict any use of the information to criminally investigate or prosecute any alcohol or drug abuse patient.[facility] the event this information is protected by the Federal Confidentiality of Alcohol and Drug Abuse Patient Records regulations: The Federal rules restrict any use of the information to criminally investigate or prosecute any alcohol or drug abuse patient.[facility]In the event this information is protected by the Federal Confidentiality of Alcohol and Drug Abuse Patient Records regulations: The Federal rules restrict any use of the information to criminally investigate or prosecute any alcohol or drug abuse patient.[facility] WestIn the event this information is protected by the Federal Confidentiality of Alcohol and Drug Abuse Patient Records regulations: The Federal rules restrict any use of the information to criminally investigate or prosecute any alcohol or drug abuse patient.[facility] WestIn the event this information is protected by the Federal Confidentiality of Alcohol and Drug Abuse Patient Records regulations: The Federal rules restrict any use of the information to criminally investigate or prosecute any alcohol or drug abuse patient.[facility]In the event this information is protected by the Federal Confidentiality of Alcohol and Drug Abuse Patient Records regulations: The Federal rules restrict any use of the information to criminally investigate or prosecute any alcohol or drug abuse patient.[facility] WestIn the event this information is protected by the Federal Confidentiality of Alcohol and Drug Abuse Patient Records regulations: The Federal rules restrict any use of the information to criminally investigate or prosecute any alcohol or drug abuse patient.[facility]In the event this information is protected by the Federal Confidentiality of Alcohol and Drug Abuse Patient Records regulations: The Federal rules restrict any use of the information to criminally investigate or prosecute any alcohol or drug abuse patient.[facility]In the event this information is protected by the Federal Confidentiality of Alcohol and Drug Abuse Patient Records regulations: The Federal rules restrict any use of the information to criminally investigate or prosecute any alcohol or drug abuse patient.[facility]In the event this information is protected by the Federal Confidentiality of Alcohol and Drug Abuse Patient Records regulations: The Federal rules restrict any use of the information to criminally investigate or prosecute any alcohol or drug abuse patient.[facility] WestIn the event this information is protected by the Federal Confidentiality of Alcohol and Drug Abuse Patient Records regulations: The Federal rules restrict any use of the information to criminally investigate or prosecute any alcohol or drug abuse patient.[facility] WestIn the event this information is protected by the Federal Confidentiality of Alcohol and Drug Abuse Patient Records regulations: The Federal rules restrict any use of the information to criminally investigate or prosecute any alcohol or drug abuse patient.[facility]In the event this information is protected by the Federal Confidentiality of Alcohol and Drug Abuse Patient Records regulations: The Federal rules restrict any use of the information to criminally investigate or prosecute any alcohol or drug abuse patient.[facility]In the event this information is protected by the Federal Confidentiality of Alcohol and Drug Abuse Patient Records regulations: The Federal rules restrict any use of the information to criminally investigate or prosecute any alcohol or drug abuse patient.[facility] WestIn the event this information is protected by the Federal Confidentiality of Alcohol and Drug Abuse Patient Records regulations: The Federal rules restrict any use of the information to criminally investigate or prosecute any alcohol or drug abuse patient.[facility] Reason for Visit (unrecogniz ed section and content) ReasonCommentsAnemia1 month follow upSpecialtyDiagnoses / ProceduresReferred By ContactReferred To Contact Diagnoses Anemia of chronic renal failure, stage 3b (HCC) Atif Yousif MD [address] [place] [address] [place] [address] No[address] [place] [address] Referral IDStatusReasonStart DateExpiration DateVisits RequestedVisits [id number]/11/20224/11/[id number] OrdersReason CommentsAnemiaReasonCommentsAnemia8 week follow upSpecialtyDiagnoses / ProceduresReferred By ContactReferred To Contact Diagnoses Anemia of chronic renal failure, stage 3b (HCC) Procedures DARBEPOETIN ROSEMARY, NON-ESRD Atif Yousif MD [address] [facility] [place] [address] [address] [place] [address] Referral IDStatusReasonStart DateExpiration DateVisits RequestedVisits [id number] IDStatusReason Start DateExpiration DateVisits RequestedVisits [id number] Clinical Info [id number] month follow up ReasonCommentsAnemiaFollow upReferral IDStatusReasonStart DateExpiration Date Visits RequestedVisits [id number]/11/20224/11/[id number] CommentsOrdersReasonCommentsToenail CareReasonCommentsAnemia6 month follow up ReasonCommentsResultsReasonCommentsFollow-upNailcareReasonCommentsEye Problem ReasonCommentsProcedureReasonCommentsPost-op Follow-upReasonOnset DateComments Lab Vvnhbd8503/31/2025 Care Teams (unrecognized sec tion and content) Team MemberRelationshipSpecialtyStart DateEnd Date Alex Nix DO PCP - GeneralInternal Ilyawejf63/19/12Team MemberRelationshipSpecialtyStart Date End Date Ball, Alex E, DO PCP - GeneralInternal Oxdnyfdp16/19/12Team MemberRelationshipSpecialtyStart Date End Date Alex Nix, DO PCP - GeneralInternal Ehcgzowy45/19/12Team MemberRelationshipSpecialtyStart Date End Date Alex Nix, DO PCP - GeneralInternal Nqqegvqf78/19/12Team MemberRelationshipSpecialtyStart Date End Date Alex Nix, DO PCP - GeneralInternal Xjpcursn68/19/12Team MemberRelationshipSpecialtyStart Date End Date Alex Nix, DO PCP - GeneralInternal Knafnvso32/19/12Team MemberRelationshipSpecialtyStart Date End Date Alex Nix, DO PCP - GeneralInternal Djzcfdhm62/19/12Team MemberRelationshipSpecialtyStart Date End Date Alex Nix, DO PCP - GeneralInternal Ffkdphro07/19/12Team MemberRelationshipSpecialtyStart Date End Date Alex Nix, DO PCP - GeneralInternal Nbmawvve21/19/12Team MemberRelationshipSpecialtyStart Date End Date Alex Nix, DO PCP - GeneralInternal Avuoavqo63/19/12Team MemberRelationshipSpecialtyStart Date End Date Alex Nix, DO PCP - GeneralInternal Jpkyplff19/19/12Team MemberRelationshipSpecialtyStart Date End Date Alex Nix DO PCP - GeneralInternal Qtyyunyw31/19/12Team MemberRelationshipSpecialtyStart Date End Date Alex Nix DO PCP - GeneralInternal Siwofxdx71/19/12Team MemberRelationshipSpecialtyStart Date End Date Alex Nix MD [address] [place] [address] [facility] - [facility] [place]06/06/23Team MemberRelationshipSpecialtyStart Date End Date Alex Nix MD [address] [place] [address] PCP - [facility]06/06/23 Team Status: Active Member Role Status Dates Natividad Corona MD Primary Care Provider Active Team Status: Inactive Member Role Status Dates Alex Nix DO Attending Provider Active Sta rt: September 18, 2023 End: September 18, 2023 Team Status: Active Member Role Status Dates Alex Nix DO Attending Provider Active Sta rt: December 01, 2023 Natividad Corona [facility] ProviderActiveStart: December 01, 2023 Team Status: Inactive Member Role Status Dates Natividad Corona MD Primary Care Provider Active Start: December 09, 2023 End: December 09[place] ProviderActiveStart: December 09, 2023 End: December 09, 2023Team MemberRelationshipSpecialtyStart DateEnd Date Alex Nix DO PCP - GeneralInternal Vaojrisd40/19/12Team MemberRelationshipSpecialtyStart Date End Date Alex Nix DO PCP - GeneralInternal Nctwivyv39/19/12 Team Status: Active Member Role Status Dates Alex Nix DO Primary Care Provider Active Team Status: Active Member Role Status Dates Alex Nix DO Primary Care Provider Active Start: May 15, 2024 Jelena Doe CECILEAttending ProviderActiveStart: May 15, 2024 Team Status: Inactive Member Role Status Dates Alex Nix DO Primary Care Provide r, Attending Provider Active Start: June 04, 2024 End: June 04, 2024 Team Status: Active Member Role Status Dates Alex Nix DO Primary Care Provide r, Attending Provider Active Start: July 06, 2024 Team Status: Inactive Member Role Status Dates Mir Amin MD Attending Provider Active Start : July 12, 2024 End: July 12enDarshan HungR[facility] ProviderActiveStart: July 12, 2024 End: July 12, 2024 Team Status: Inactive Member Role Status Dates Alex Nix DO Primary Care Provide r, Attending Provider Active Start: August 02, 2024 End: August 02, 2024Team MemberRelationshipSpecialtyStart DateEnd Date Alex Nix DO [facility] [place] Bqusickf87/19/12Team MemberRelationshipSpecialtyStart Date End Date Alex Nix DO PCP - GeneralInternal Disbosoz27/19/12Team MemberRelationshipSpecialtyStart Date End Date Alex Nix MD [address] [place] [address] PCP - GeneralInternal Medicine06/06/23Team MemberRelationshipSpecialtyStart Date End Date Alex Nix MD [address] [place] [address] PCP - GeneralInternal Medicine06/06/23Team MemberRelationshipSpecialtyStart Date End Date Alex Nix MD [address] [place] [id number] PCP - GeneralInternal Medicine06/06/23Team MemberRelationshipSpecialtyStart Date End Date Alex Nix MD [address] [place] [address] PCP - GeneralInternal Medicine06/06/23 Team Status: Active Member Role Status Dates Alex Nix DO Primary Care Provide r, Attending Provider Active Start: December 22, 2024 Team Status: Inactive Member Role Status Dates Alex Nix DO Primary Care Provide r, Attending Provider Active Start: December 29, 2024 End: December 29, 2024Team MemberRelationshipSpecialtyStart DateEnd Date Alex Nix MD [address] [place] [id number] PCP - GeneralInternal Medicine06/06/23Team MemberRelationshipSpecialtyStart Date End Date Alex Nix MD [address] [place] [address] PCP - GeneralInternal Medicine06/06/23Team MemberRelationshipSpecialtyStart Date End Date Alex Nix MD PCP - GeneralInternal Medicine06/06/23Team MemberRelationshipSpecialtyStart Date End Date Alex Nix MD PCP - GeneralInternal Medicine06/06/23Team MemberRelationshipSpecialtyStart Date End Date Alex Nix MD PCP - GeneralInternal Medicine06/06/23 Team Status: Inactive Member Role Status Dates Alex Nix DO Primary Care Provide r, Attending Provider Active Start: 2025 End: February 07, 2025Team MemberRelationshipSpecialtyStart DateEnd Date Alex Nix DO PCP - GeneralInternal Kpuhwjdl93/19/12Team MemberRelationshipSpecialtyStart Date End Date Alex Nix DO [address] [place] [address] PCP - [facility]03/25/25Team MemberRelationshipSpecialtyStart Date End Date Alex Nix DO [address] [place] [address] PCP - [facility]03/25/25Team MemberRelationshipSpecialtyStart Date End Date Alex Nix DO [facility] - [facility] [place] Dilityfr47/19/12Team MemberRelationshipSpecialtyStart Date End Date Alex Nix DO [address] [place] [address] PCP - [facility]03/25/25 Team Status: Active Member Role Status Dates Alex Nix DO Primary Care Provider Active Start: May 16, 2025 TERESA Clinton-CAttending ProviderActiveStart: May 16, 2025 Team Status: Inactive Member Role Status Dates Alex Nix DO Primary Care Provider Active Start: July 06, 2025 End: July 06sofie Nix DOAttjayla ProviderActiveStart: July 06, 2025 End: July 06, 2025 Team Status: Inactive Member Role Status Dates Alex Nix DO Primary Care Provider Active Start: August 04, 2025 End: August 04, 2025Good [place] ProviderActiveStart: August 04, 2025 End: August 04, 2025 INFORMATION SOURCE (unrecogn ized section and content) DATE CREATED AUTHOR 03/05/2023 [facility] DATE CREATED AUTHOR AUTHOR'S ORGANIZ ATION 02/04/2025 [facility] DATE CREATED AUTHOR AUTHOR'S ORGANIZ ATION 02/06/2025 [facility] DATE CREATED AUTHOR AUTHOR'S ORGANIZ ATION 05/17/2025 [facility] DATE CREATED AUTHOR AUTHOR'S ORGANIZ ATION 08/07/2025 [facility] EPIC Goals (unrecognized section and content) [...] BE BASED ON THE PRIMARY CLINICAL RECORDS. [employer] provides no warranty or guarantee of the accuracy or completeness of information in this document.
[2025-08-24 12:02] LABS: Hematocrit 35.6 % (36.0-48.0); Hemoglobin 11.9 g/dL (12.0-16.0); Mean Corpuscular HGB Conc 33.4 g/dL (29.9-35.2); Mean Corpuscular Hemoglobin 35.3 pg (26.7-34.0); Mean Corpuscular Volume 105.6 fL (81.0-99.0); Platelet Count 219 10^3/uL (150-450); Red Blood Count 3.37 10^6/uL (4.20-5.40); White Blood Count 5.8 10^3/uL (4.0-11.0)
[2025-08-24 12:27] LABS: Albumin Level 3.3 g/dL (3.4-5.0); Anion Gap 13.0; Blood Urea Nitrogen 33.0 mg/dL (7.0-18.0); Calcium 9.5 mg/dL (8.5-10.1); Carbon Dioxide 30.5 mmol/L (21.0-32.0); Chloride 103 mmol/L (98-107); Estimated GFR (African America 40 (>=60 mL/min/1.73m^2); Estimated GFR (Non-African Ame 33 (>=60 mL/min/1.73m^2); Glucose 159 mg/dL (74-106); Magnesium 1.7 mg/dL (1.8-2.4); Potassium 4.5 mmol/L (3.5-5.1); Sodium 142 mmol/L (136-145); Uric Acid 6.8 mg/dL (2.6-6.0)
== END 2025-08-24 11:33 | disposition home or self-care (01) ==
LOC: LAB 11:32
PROVIDERS: PCP Internal Medicine; Visit Provider Internal Medicine
DX: N18.30 Chronic kidney disease, stage 3 unspecified (principal); E11.65 Type 2 diabetes mellitus with hyperglycemia; E79.0 Hyperuricemia without signs of inflammatory arthritis and tophaceous disease; N25.81 Secondary hyperparathyroidism of renal origin; E83.42 Hypomagnesemia; N18.9 Chronic kidney disease, unspecified
CPT/HCPCS: 36415; 80069; 81001; 82306; 82570; 83735; 83970; 84156; 84550; 85027

== ENCOUNTER 2025-08-25 16:42 | Outpatient (REF) | payer MEDICARE, SELFPAY ==
--- OUTSIDE RECORDS SUMMARY | 2025-08-25 16:46 | XMS_ITS | CCD ---
Author Organization [facility] Care Team Providers Care Luggage Maker Name Role Phone Alex Nix DO Primary Care Provider Dolores, Mir Unavailable ALEX NIX Primary Care Physician [phone] Alex Nix DO Primary Care Provider Alex [...] Unavailable Ball Alex PHILLIPS Primary Care Provider [phone] Kelsey Bowers PA-C Attending Provider [phone] Alex Nix DO Attending Provider [phone] Natividad Corona MD Attending Provider [phone] Alex Nix DO Primary Care Provider CHANTAL WARD Attending Unavailabl e CHANTAL WARD Attending Unavailabl e BELINDA MARKS Attending Unavailable BELINDA MARKS Attending Unavailable BELINDA MARKS Attending Unavailable CHANTAL WARD Attending Unavailabl e CHANTAL WARD Attending Unavailabl e CHANTAL WARD Attending Unavailabl e CHANTAL WARD Attending Unavailabl e Allergies Allergy ClassificationReported Allergen(s)Allergy TypeDate of OnsetReaction(s) Facility (20 sources)iron sucrose; Translations: [IRON SUCROSE]Drug Ylphewf87-57-8055 [facility] (20 sources)Sulfonamides (Antibiotic); Translations: [SULFA (SULFONAMIDE ANTIBIOTICS)]Drug Sxcsxha56-70-8444[facility] (20 sources)atorvastatinDrug Hurjtqz27-72-0286Fhdytfq, Unknown ReactionAs[facility] (20 sources)IronDrug Pjvvuoy67-01-8886Cubebpp, Unknown ReactionAshtabula General Hospital (5 sources)sulfaSALAzineDrug AllergyUnknowAccounting [employer] [place] Other (20 sources)TetracyclineDrug Xlxzeyq80-18-2293Acxxuih, Unknown ReactionAshtabula General Hospital (5 sources)iron polysaccharide; Translations: [iron polysaccharide]Drug Allergy Weal (disorder)[facility] (6 sources)Sulfamethoxazole; Translations: [sulfamethoxazole]Drug Allergy [facility] (2 sources)IronDrug Orcujsn83-98-6465Dcl [facility] (2 sources)Sulfonamides (Antibiotic)Drug allergy (disorder)49-14-6006Wfp [facility] (4 sources)patient allergy list reviewed by nurse or physiciaPropensity to adverse fyebqjdcf81-41-9281Zrjvplw:[employer] Other (20 sources)ferrous sulfateDrug Pbelhfu70-32-5634[facility] (20 sources)IronDrug Uxtjotr89-84-9564FbdakKSNL [facility] (20 sources)iron sucroseDrug Slkclhi17-00-8617KzxiryvUICK [facility] (20 sources)SulfanilamideAllergy to cgxpfzkyr43-62-2579IS[facility] (1 source)ferrous gluconate; Translations: [ferrous gluconate]Drug AllergyWeal (disorder)[facility] Medications Current Medications MedicationDrug Class(es)DatesSig (Normalized)Sig (Original)amLODIPine 5 mg oral tablet (20 sources)Dihydropyridine Calcium Channel BlockerStart: 02-18-2024 End: 07-67-2366wirr 1 tablet by mouth once dailyStart: 09-29-2021 End: 36-35-2781qfiz 1 tablet by mouth once dailyAmlodipine 5 [...] carbonate 1500 mg oral tablet (7 sources)Start: 43-61-8903zfnq 1 tablet by mouth once dailyCalcium Carbonate [...] ActiveCalcium Citrate / Vitamin D (5 sources)Start: 57-63-2117euwvfew-vitamin D 1,200 mg, Oral, Daily, Refill(s) 0, 800 mg vitamin d 1200 mg calcium Start Date: 10/23/16 Status: Ordered Repeat number: 1Start: 05-14-9693zrosmlj-vitamin D 1,200 mg, Oral, Daily, Refill(s) 0, 800 mg vitamin d 1200 mg calcium Start Date: 10/23/16 Status: Orderedcarvedilol 6.25 mg oral tablet (20 sources)alpha-Adrenergic Juliet, beta-Adrenergic BlockerStart: 01-23-2025 take 1 tablet by mouth twice dailyStart: 09-01-2012 End: 76-24-7464goaj 1 tablet by mouth twice dailyCarvedilol 6.25 [...] rosemary 0.025 mg/ml injection (7 sources)Erythropoiesis-stimulating AgentStart: 09-24-7994wbntay 25 ug by subcutaneous injection every week as needed1 ml denosumab 60 mg/ml prefilled syringe (20 sources)RANK Ligand InhibitorStart: 24-62-4374wwyvtyftck 20 mg oral tablet (20 sources)Histamine-2 Receptor AntagonistStart: 83-05-0963jquf 1 tablet by mouth twice dailyStart: 10-11-2021 End: 59-47-6087uzrr 1 tablet by mouth twice dailyFamotidine 20 [...] capsule (20 sources)Peroxisome Proliferator Receptor alpha AgonistStart: 17-61-6388fwvq 1 capsule by mouth once dailyfenofibrate micronized (Lofibra) 134 MG capsule Take 134 mg by mouth Daily 11/27/2024 ActiveStart: 06-02-2024 End: 04-49-3069mrxz 1 capsule by mouth once dailyStart: 01-08-2018 End: 34-12-4712soib 1 capsule by mouth once dailyFenofibrate Micronized [...] bedtime. Glucose Meter Test - (16 sources)Start: 36-41-5648Kasfarp Meter Test - Use to test home BS qd In Vitro daily for 365 days February, ActiveInsulin Glargine-Yfgn (5 sources)Start: 94-15-6881zaxzoe 8 [IU] by subcutaneous injection once daily Start: 05-11-2025 End: 42-74-7169graesy 8 [IU] by subcutaneous injection once dailyInsulin Glargine-Yfgn 100 unit/mL (3 mL) insulin pen Discontinued 8 UNIT SUBCUT Daily May 11, 2025 6:01pm July 27, 2025 9:39amStart: 02-92-4942pbwhut 8 [IU] by subcutaneous injection once dailyInsulin Glargine-Yfgn 100 unit/mL (3 mL) insulin pen Active 8 UNIT SUBCUT Daily May 11, 2025 6:01pm Complies with drug therapyStart: 04-08-2025 End: 63-60-1669hhfzgn 6 [IU] by subcutaneous injection once daily in the evening Insulin Glargine-Yfgn 100 unit/mL (3 mL) insulin pen Discontinued 0 .ROUTE .COMPLEX April 08, 2025 1:31pm May 11, 2025 6:02pm INJECT 6 UNITS SUBCUTANEOUSLY EVERY EVENING FOR 30 DAYSinsulin glargine-yfgn (SEMGLEE) 100 unit/mL (3 mL) insulin pen (1 source)Start: 42-55-2834fjejnk 6 [IU] by subcutaneous injection once daily in the eveninginsulin glargine-yfgn (SEMGLEE) 100 unit/mL (3 mL) insulin pen INJECT 6 UNITS SUBCUTANEOUSLY EVERY EVENING FOR 30 DAYS 04/11/2025 Active magnesium oxide 400 mg oral tablet (20 sources)Start: 11-07-2024 End: 25-08-4639smdr 1 tablet by mouth once dailyMagnesium Oxide 400 mg (241.3 mg magnesium) tablet Discontinued 0 .ROUTE .COMPLEX November 07, 2024 3:56pm March 07, 2025 5:14pm TAKE 1 TABLET BY MOUTH EVERY DAYStart: 11-27-2022 End: 71-60-4089glzu 1 tablet by mouth once dailymagnesium oxide [...] 12 (twelve) hours. 0 ActiveOmega-3 (5 sources)Start: 67-53-6402ibvs 300 mg by mouth twice dailyOmega-3 300 mg, Oral, BID, Refill(s) 0, Prophylaxis Start Date: 09/06/14 Status: Ordered Repeat number: 1Start: 44-90-2899zljl 300 mg by mouth twice dailyOmega-3 300 mg, Oral, BID, Refill(s) 0, Prophylaxis Start Date: 09/06/14 Status: Orderedomega-3 acid ethyl esters (assisted) 1000 mg oral capsule (7 sources)Start: 56-25-4562yinw 1 capsule by mouth once daily fyeof-0m-ebz-epa-fish oil 300-1,000 mg cpDR (20 sources)irdqi-4a-ibv-epa-fish oil 300-1,000 mg cpDR Take by mouth. Active usdqt-2d-iyd-epa-fish oil 300-1,000 mg cpDR Take by mouth. 0 ActiveComment on above:Take by mouth. Completed/Discontinued Medications MedicationDrug Class(es)DatesSig (Normalized)Sig (Original)acetaminophen 325 mg / HYDROcodone bitartrate 7.5 mg oral tablet (20 sources)Opioid AgonistStart: 09-06-2022 End: 79-01-4069wxhr 1 tablet by mouth three times daily as needed for pain Hydrocodone-Acetaminophen 7.5-325 mg tablet Discontinued 1 TAB PO Three times daily as needed for pain 90 September 28, 2024 November 12, 2024 4:28pm start 08/11Start: 37-46-0844sajj 1 tablet by mouth three times daily as needed for painNorco 325 mg-7.5 mg oral tablet 1 tab(s), Oral, TID as needed for pain, 90 tab(s), Refill(s) 0, [facility]/pharmacy #[id number], 160, cm, 05/02/22 14:00:00 EDT, Height/Length Dosing, 72.5, kg, 05/02/22 14:00:00 EDT, Weight Dosing Start Date: 05/30/22 Status: OrderedStart: 04-16-2022 End: 03-13-1513ctxm 1 tablet by mouth three times daily as needed for painNorco 325 mg-7.5 mg oral tablet 1 tab(s), Oral, TID as needed for pain for 30 day(s), 90 tab(s), Refill(s) 0, [facility]/pharmacy #[id number], 160, cm, 02/21/22 12:46:00 [...] oral capsule (20 sources)Penicillin-class AntibacterialStart: 12-09-2023 End: 05-09-4646Toaxokucate 500 mg capsule Discontinued 2000 MG PO as needed December 09, 2023 1:00am December 17, 2023 3:02pm FreeTextSi capsule Orally before dental work; Note: Source Status: Taking; Provider: Dinah Johnson ( )Start: 12-09-2023 End: 43-93-1991Cveuiubvgtk Discontinued 2000 MG PO December 09, 2023 1:00am December 17, 2023 3:02pm FreeTextSi capsule Orally before dental work; Note: Source Status: Taking; Provider: Dinah Johnson ( ) Amoxicillin 500 MG 4 capsule Orally before dental work Activeazithromycin 250 mg oral tablet (3 sources)Macrolide AntimicrobialStart: 2025 End: 70-06-4696Dipgcrhwfwtr 250 mg tablet Discontinued 250 MG PO .COMPLEX 6 5 2025 12:00am May 12, 2025 10:55am 2 tabs on first day followed by 1 tab on days 2-5erythromycin 0.005 mg/mg ophthalmic ointment (3 sources)Macrolide, Macrolide AntimicrobialStart: 01-28-2025 End: 80-52-4262bbpqj 3.5 g into the eye(s) three times dailyerythromycin (Romycin) 5 MG/GM ophthalmic ointment 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, including canthus Apply to right eye 3 (three) times a day for 10 days 3.5 g 01/28/2025 2025 Expiredgabapentin 100 mg oral capsule (20 sources)Anti-epileptic AgentStart: 30-52-3407naqe 1 capsule by mouth twice dailyStart: 12-02-2024 End: 07-45-9624aztb 1 capsule by mouth every eight hoursGabapentin 100 mg capsule Discontinued 100 MG PO Every 8 hours 270 90 December 02, 2024 2:11pm December 29, 2024 11:11amStart: 02-18-2024 End: 07-84-5796wkhx 1 capsule by mouth three times dailyGabapentin 100 mg capsule Discontinued 0 .ROUTE .COMPLEX 270 September 01, 2024 11:18pm December 02, 2024 2:12pm TAKE 1 CAPSULE BY MOUTH 3 TIMES A DAYStart: 10-11-2021 End: 21-50-9902hwnw 1 capsule by mouth three times dailyGabapentin 100 mg capsule Discontinued 100 MG PO Three times daily December 09, 2023 1:00am February 18, 2024 6:17pm FreeTextSig: TAKE 1 CAPSULE BY MOUTH THREE TIMES A DAY; Note: Source Status: Continue; Provider: Dinah Johnson ( )Start: 44-66-9801qpht 3 capsules by mouth three times dailygabapentin (NEURONTIN) 100 mg capsule Take 300 mg by mouth three times daily. 10/01/2012 ActiveComment on above:Take 300 mg by mouth three times daily.3 ml insulin glargine 100 unt/ml pen injector (5 sources)Insulin AnalogStart: 04-07-2025 End: 48-17-4744edvtvi 6 [IU] by subcutaneous injection once daily [...] oral tablet (11 sources)Opioid AgonistStart: 11-13-2021 End: 35-30-7136vkaa 1 tablet by mouth twice daily as needed for painoxyCODONE IR (ROXICODONE) 5 mg immediate release tablet TAKE 1 TABLET BY MOUTH TWICE A DAY NEEDED FOR PAIN 0 11/13/2021 09/16/2022 Discontinued (Discontinued by another Health Care Provider)Comment on above:TAKE 1 TABLET BY MOUTH TWICE A DAY NEEDED FOR PAINtraMADol hydrochloride 50 mg oral tablet (12 sources)Opioid AgonistStart: 05-20-2024 End: 26-66-1119bmtv 1 tablet by mouth three times daily as needed for pain Tramadol 50 mg tablet Discontinued 50 MG PO Three times daily as needed for pain 90 30 June 28, 2024 5:54pm June 29, 2024 5:31pm Problems Active Problems Problem ClassificationProblemDateDocumented DateEpisodic/ChronicAcute bronchitis (2 sources)Acute infective bronchitis; Translations: [Acute bronchitis due to other specified organisms]54-05-0775YawxyuzaMrknfhn kidney disease (20 sources)Chronic kidney disease stage 3B ; Translations: [Chronic renal impairment, stage 3b (HCC)]Onset: 10-01-2012 Resolved: 13-72-9239AuylhvaWukvqqp kidney disease (20 sources)Chronic kidney disease; Translations: [Chronic kidney disease, stage III (moderate)]Onset: 10-01-2012 Resolved: 17-73-5570Owytcknkhi associated with dizziness or vertigo (7 sources)Benign paroxysmal vertigo, bilateral; Translations: [Benign paroxysmal positional vertigo]EpisodicDeficiency and other anemia (20 sources)Anemia of chronic renal failure; Translations: [Anemia of chronic renal failure, stage 3b (HCC)]Onset: 87-43-1478OyqltadOntewuyabt and other anemia (6 sources)Iron deficiency anemia due to blood loss; Translations: [Iron deficiency anemia secondary to blood loss (chronic)]ChronicDeficiency and other anemia (20 sources)Anemia of renal disease; Translations: [Anemia in chronic kidney disease]ChronicDeficiency and other anemia (6 sources)Anemia in chronic kidney disease; Translations: [ANEMIA IN CHRONIC KIDNEY DISEASE]Onset: 01-15-2022 Resolved: 89-57-6207JxlxrmmTqcanxahpl and other anemia (4 sources)Anemia due to chronic blood loss; Translations: [Iron deficiency anemia secondary to blood loss (chronic)]Onset: 38-73-3685JajvsewUahcvqpsxd and other anemia (4 sources)Chronic anemia; Translations: [Anemia in other chronic diseases classified elsewhere]ChronicDeficiency and other anemia (1 source)Iron deficiency anemia secondary to blood loss (chronic); Translations: [Iron deficiency anemia dueto chronic blood loss]Onset: 10-01-2012 ChronicDeficiency and other anemia (20 sources)Anemia; Translations: [Anemia, unspecified]Onset: 10-01-2012 Resolved: 539052-38-0279RohytgqwKoahclshbs and other anemia (20 sources)Iron deficiency anemia secondary to inadequate dietary iron intake; Translations: [Other iron deficiency anemias]EpisodicDeficiency and other anemia (2 sources)Other iron deficiency anemiasEpisodicDeficiency and other anemia (12 sources)Iron deficiency anemia; Translations: [Other iron deficiency anemias]Onset: 75-59-4003SxlyefaqEwbrtbdn mellitus with complications (20 sources)Type 2 diabetes mellitus; Translations: [Type 2 diabetes mellitus with hyperglycemia]Onset: 26-36-5132NzbxvbhOwpumeaw mellitus without complication (3 sources)Type 2 diabetes mellitus without complication; Translations: [Type 2 diabetes mellitus without complications]Onset: 888171-39-8798Iypzpgj Disorders of lipid metabolism (20 sources)Hyperlipidemia; Translations: [Hyperlipidemia, unspecified]Onset: 193136-46-4894AbezfllLjhxiouvem disorders (20 sources)Gastroesophageal reflux disease; Translations: [Gastro-esophageal reflux disease without esophagitis]Onset: 06-06-2023 Resolved: 155911-62-4807RkzkqqxHsfsrusje hypertension (20 sources)Essential hypertension; Translations: [Essential (primary) hypertension]Onset: 19-85-9657JuoxlbfCpihs and electrolyte disorders (4 sources)Hyperkalemia; Translations: [Hyperkalemia]EpisodicGastroduodenal ulcer (except hemorrhage) (5 sources)Gastric pomoq46-85-4746XaeffdvThjfoadbmtnwqd ulcer (except hemorrhage) (4 sources)H/O: peptic ulcer; Translations: [Personal history of peptic ulcer disease]EpisodicGenitourinary symptoms and ill-defined conditions (4 sources)Dysuria; Translations: [Dysuria]EpisodicHeart valve disorders (1 source)Cardiac murmur, unspecifiedEpisodicHypertension with complications and secondary hypertension (20 sources)Chronic kidney disease due to hypertension; Translations: [Hypertensive chronic kidney disease withstage 1 through stage 4 chronic kidney disease, or unspecified chronic kidney disease]Onset: 10-02-2016 Resolved: 00-20-1570UdyisvqKjarsdzbcuvrv and screening for infectious disease (4 sources)Vaccination given; Translations: [Encounter for immunization]Episodic Mycoses (8 sources)Onychomycosis; Translations: [Tinea unguium]87-96-3161Pcjiwphl Neoplasms of unspecified nature or uncertain behavior (20 sources)Monoclonal gammopathy of uncertain significance; Translations: [Monoclonal gammopathy]ChronicNutritional deficiencies (20 sources)Vitamin D deficiency, unspecified; Translations: [Vitamin D deficiency]Onset: 280620-68-4682AowlrgxBrdzdxjdjnixuh (20 sources)Degenerative joint disease involving multiple joints; Translations: [Polyosteoarthritis, unspecified]Onset: 43-18-7851HuzlmeoFnmkcariaayd (20 sources)Age-related osteoporosis without current pathological fracture; Translations: [Senile osteoporosis]Onset: 40-48-9167EtqxnjsTllvd acquired deformities (20 sources)Scoliosis of lumbar spine; Translations: [Scoliosis, unspecified] Onset: 419439-15-8867KxgqetkDzzhm aftercare (8 sources)Drug therapy finding; Translations: [supervisor intermediates (current) use of opiate analgesic]08-82-0268OkytfckpVruxi aftercare (4 sources)supervisor intermediates (current) use of opiate analgesic; Translations: [Long-term (current) use of other medications]97-85-8246CicfrmwnNsaud circulatory disease (5 sources)Other specified symptoms and signs involving the circulatory and respiratory systemsEpisodicOther connective tissue disease (1 source)Pain of toes of bilateral feet; Translations: [Pain in right toe(s)] 17-25-2854PlvgutegIdejc connective tissue disease (3 sources)Pain in both feet; Translations: [Pain in right foot]11-19-2024 EpisodicOther diseases of kidney and ureters (20 sources)Secondary hyperparathyroidism; Translations: [Secondary hyperparathyroidism of renal origin]33-31-4725PyifmjdAqpxc diseases of kidney and ureters (9 sources)Secondary hyperparathyroidism of renal origin; Translations: [Secondary hyperparathyroidism (of renal origin)]Onset: 10-16-2021 Resolved: 50-73-1083VclfkrwOelbc diseases of veins and lymphatics (20 sources)Peripheral venous insufficiency; Translations: [Venous insufficiency (chronic) (peripheral)]Onset: 35-42-3646UdlbetmgIfxtw diseases of veins and lymphatics (4 sources)Venous insufficiency (chronic) (peripheral)EpisodicOther ear and sense organ disorders (4 sources)Otitis externa of right ear; Translations: [Unspecified otitis externa, right ear]Onset: 21-75-0084DdsjiwrUfqjl eye disorders (2 sources)Hemorrhage of eyelid; Translations: [Other specified disorders of eyelid]31-85-2190DhrwyzkkXlrkl fractures (5 sources)Fracture of xguqrb89-07-4263UfflgdqnBdxjy fractures (4 sources)Wedge compression fracture of unspecified lumbar vertebra, subsequent encounter for fracture with routine healing; Translations: [Wedge comprsn fx unsp lum vertebra, subs for fx w routn heal]EpisodicOther injuries and conditions due to external causes (5 sources)Fracture of pcwj55-64-9473OislgkxwMabmtep on above:August 2015Other injuries and conditions due to external causes (8 sources)History of fall; Translations: [Personal history of fall]Onset: 37-52-9729GskawlkwVbszp injuries and conditions due to external causes (4 sources)Old healed fracture of bone ; Translations: [Personal history of (healed) traumatic fracture]EpisodicOther nervous system disorders (20 sources)Neuropathy; Translations: [Idiopathic progressive neuropathy]Onset: 607042-56-3592SmbjtrvMvoyp nervous system disorders (8 sources)Idiopathic progressive polyneuropathy; Translations: [Idiopathic progressive neuropathy]85-30-1958CqrglnmWogcm non-traumatic joint disorders (4 sources)Lower limb joint arthritis; Translations: [Osteoarthrosis, unspecified whether generalized or localized, lower leg]Onset: 99-75-2036Qvnrflm Other nutritional; endocrine; and metabolic disorders (20 sources)Hypomagnesemia; Translations: [Hypomagnesemia]85-53-1534RivlitfDamzr nutritional; endocrine; and metabolic disorders (5 sources)Hypomagnesemia; 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Other nutritional; endocrine; and metabolic disorders (4 sources)Hypercalcemia; Translations: [Hypercalcemia]Onset: 66-31-3202Djahyly Other nutritional; endocrine; and metabolic disorders (4 sources)Simple obesity ; Translations: [Other obesity due to excess calories] Onset: 16-00-0823DebnqsyYcsyl nutritional; endocrine; and metabolic disorders (4 sources)Body mass index 30+ - obesity; Translations: [Body mass index 31.0- 31.9, adult]Onset: 58-73-5835UerflmvWdddz nutritional; endocrine; and metabolic disorders (4 sources)Obese class I; Translations: [Body mass index 32.0-32.9, adult]Onset: 43-79-3879UcafztvMuepy nutritional; endocrine; and metabolic disorders (4 sources)History [...] without signs of inflammatory arthritis and tophaceous disease]06-53-3815IllnoupjRbilk screening for suspected conditions (not mental disorders or infectious disease) (9 sources)Encounter for screening mammogram for malignant neoplasm of breast; Translations: [Blood chemistry abnormal]Onset: 566664-72-7738PbywbbyrAblhn skin disorders (8 sources)Callosity; Translations: [Corns and callosities]64-88-5370Trqufrlt Otitis media and related conditions (7 sources)Eustachian tube salpingitis; Translations: [Unspecified Eustachian salpingitis, bilateral] Resolved: 838623-37-4700LtngdgevAdykrzzo enteritis and ulcerative colitis (20 sources)Crohn's disease; Translations: [Crohn's disease, unspecified, without complications]Onset: 714554-46-3906XqfljemMprtddxaiwj; intervertebral disc disorders; other back problems (20 sources)Other spondylosis with myelopathy, lumbar region; Translations: [Lumbar spondylosis with myelopathy]Onset: 17-07-0211KfewoktGjcovlr disorders (4 sources)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; Translations: [Thyrotoxicosis of other specified origin without mention of thyrotoxic crisis or storm]Onset: 38-79-9351HdqjzfyWixwyfzhyeir (5 sources)Long-term current use of opiate analgesic drugOnset: 05-02-2022 75-71-2829Nzrdles on above:Added secondary to current Opioid Treatment Agreement Unclassified (4 sources)Urine finding; Translations: [Other nonspecific finding on examination of urine]Onset: 77-38-1286Szuxttyhstdr (4 sources)Retained foreign body, unspecified material; Translations: [Retained foreign body, unspecified material]Onset: 90-04-7854Imydz infection (4 sources)Disease caused by 2019-nCoV; Translations: [COVID-19] Past or Other Problems Problem ClassificationProblemDateDocumented DateEpisodic/ChronicAcute and unspecified renal failure (5 sources)Acute kidney failure, unspecified; Translations: [Acute renal failure syndrome]Onset: 10-16-2021 Resolved: 77-58-2935OizudtceKhhud posthemorrhagic anemia (4 sources)Acute posthemorrhagic anemia; Translations: [Acute posthemorrhagic anemia]Onset: 91-08-7154QgjesiblDfpmbtscl infection; unspecified site (4 sources)Bacterial infectious disease; Translations: [Bacterial infection, unspecified, in conditions classified elsewhere and of unspecified site]Onset: 18-86-5762WemeagptYryaltbfel and other anemia (1 source)Anemia, unspecifiedOnset: 10-16-2021 Resolved: 79-29-8532FwiijznnCbwvzqazas disorders (8 sources)Esophageal disorders; Translations: [Gastro-esophageal reflux disease with esophagitis, without bleeding]Gastrointestinal hemorrhage (4 sources)Acute gastric ulcer with hemorrhage but without obstruction; Translations: [Acute gastric ulcer with hemorrhage, without mention of obstruction]Onset: 02-77-0684UycpcjinQqkmaun and fatigue (20 sources)Malaise and fatigue; Translations: [Other malaise]Onset: 12-05-2017 83-70-5321BssfogszYcezsvktpxb deficiencies (20 sources)Iron deficiency; Translations: [Iron deficiency]Onset: 10-01-2012 97-14-4637WpdbxfdiTltkx circulatory disease (4 sources)Cardiovascular symptoms; Translations: [Other symptoms involving cardiovascular system]Onset: 17-40-1276CokaolytZuspn connective tissue disease (4 sources)Spasm; Translations: [Spasm of muscle]Onset: 76-55-0458XpxdurwgCrqkh diseases of kidney and ureters (2 sources)Chronic renal insufficiency; Translations: [Disorder of kidney and ureter, unspecified]Onset: 271785-77-1973ZqjiudvzUjnwt ear and sense organ disorders (4 sources)Impacted cerumen; Translations: [Impacted cerumen]Onset: 02-06-2017 EpisodicOther fractures (5 sources)Fracture of pelvisOnset: 516564-55-4239GeuvkfqhWcevh non- epithelial cancer of skin (20 sources)Basal cell carcinoma of lower eyelid; Translations: [Basal cell carcinoma of skin of right lower eyelid, including canthus]Onset: 01-21-2025 65-87-9183FivmwhkoHtjme non-traumatic joint disorders (4 sources)Pain in right hip joint; Translations: [Pain in right hip]Onset: 78-71-0461YsjoyqutJbusp skin disorders (4 sources)Hypertrophic condition of skin; Translations: [Other hypertrophic disorders of the skin] Resolved: 34-25-8968YnikytwnPcyry skin disorders (4 sources)Actinic keratosis; Translations: [Actinic keratosis]Onset: 10-30-2016 EpisodicOther skin disorders (4 sources)Localized swelling, mass and lump, neck; Translations: [Localized swelling, mass and lump, neck]Onset: 70-18-2753OovwbpxjZiqjd skin disorders (4 sources)Localized swelling, mass and lump, unspecified lower limb; Translations: [Localized swelling, mass and lump, unspecified lower limb]Onset: 50-55-5352LfidkbtmRnibv upper respiratory disease (4 sources)Bleeding from nose; Translations: [Epistaxis]Onset: 12-16-2014 EpisodicOther upper respiratory infections (8 sources)Acute maxillary sinusitis; Translations: [Acute recurrent maxillary sinusitis]Onset: 78-34-1317StqihilbZxwehizjfrf; intervertebral disc disorders; other back problems (20 sources)Stenosis of lumbar vertebral foramen; Translations: [Spinal stenosis, lumbar region without neurogenic claudication]Onset: 09-07-2013 90-70-3306UrojacupDtfslad and strains (4 sources)Neck sprain; Translations: [Strain of muscle, fascia and tendon at neck level, initial encounter]Onset: 12-42-0445ObgasvygZakwgdqjjcq injury; contusion (4 sources)Contusion of hand; Translations: [Contusion of hand(s)]Onset: 79-39-6876JzffgtwzEwmrbiy tract infections (8 sources)Acute cystitis; Translations: [Acute cystitis with hematuria]Onset: 10-16-2017 Resolved: 03-68-9654Ieniccdb Results Test NameValueInterpretationReference NtollDqazlyjlFfI1a HPLC (Bld) [Mass fraction]Ordered By: Alex Nix on 60-13-4592JqP3j (Bld) [Mass fraction]7.0 % [facility] HospitalBasophils Auto (Bld) [#/Vol]Ordered By: KELSEY BOWERS on 32-18-6701Twpedpkoj (Bld) [#/Vol]0.03 10*3/uL<0.11[facility] HospitalBasophils/100 WBC Auto (Bld)Ordered By: KELSEY BOWERS on 05-16-2025 Basophils/100 WBC (Bld)0.5 %[facility] HospitalBlood manual differential comment interpretation narrativeOrdered By: KELSEY BOWERS on 92-83-0307Wdbouh differential comment Ankit (Bld) [Interp]AutoAshtabula General HospitalCB W Auto Differential panel (Bld)on 07-47-9721Sxphkwogb (Bld) [#/Vol]0.03 10*3/uLNormal<0.11CKindred Hospital [facility] on above:Order Comment: Specimen Type: BLOOD SPECIMEN Ordering Facility: [facility] Address: [address] [place], [place] [address]Performed By: #### 96006-0 #### [facility] CLIA [id number] [address] [place], [place] [address]Vhgbhaked/100 WBC (Bld)0.5 %NormalKettering Health Dayton Comment on above:Order Comment: Specimen Type: BLOOD SPECIMEN Ordering Facility: [facility] Address: [address] [place], [place] [address]Performed By: #### 14639-9 #### [facility] CLIA [id number] [address] [place] [address] 88536Ipuxpookdqyk cell count method Nom (Bld)AutoNormalCHolmes County Joel Pomerene Memorial HospitalComdetroit receiving hospital on above:Order Comment: Specimen Type: BLOOD SPECIMEN Ordering Facility: [facility] Address: [address] [place], [place] [address]Performed By: #### 80741-8 #### [facility] IA [id number] [address] [place] [address] 30479Hppzpkegjeh (Bld) [#/Vol]0.21 10*3/uLNormal<0.46[facility] on above:Order Comment: Specimen Type: BLOOD SPECIMEN Ordering Facility: [facility] Address: [address] [place], [place] [address]Performed By: #### 31828-0 #### [facility] IA [id number] [address] [place] [address] 64333Hduyajzinjk/100 WBC (Bld)3.8 %NormalKettering Health Dayton Comment on above:Order Comment: Specimen Type: BLOOD SPECIMEN Ordering Facility: [facility] Address: [address] [place], [place] [address]Performed By: #### 22062-0 #### [facility] CLIA [id number] [address] [place] [address] 29105Itkuagmynay distribution width (RBC) [Ratio]13.0 %Normal 11.5-15.0[facility] on above:Order Comment: Specimen Type: BLOOD SPECIMEN Ordering Facility: [facility] Address: [address] [place], [place] [address]Performed By: #### 45481-8 #### [facility] CLIA [id number] [address] [place], [place] [address]Hfaxjtbduv (Bld) [Volume fraction]35.0 %Low36.0-46.0[facility] on above:Order Comment: Specimen Type: BLOOD SPECIMEN Ordering Facility: [facility] Address: [address] [place], [place] [address]Performed By: #### 82540-3 #### [facility] CLIA [id number] [address] [place] [address] 63789Rbugdwxpde (Bld) [Mass/Vol]11.5 g/yUSrauzu92.5-15.5CKindred Hospital Lima on above:Order Comment: Specimen Type: BLOOD SPECIMEN Ordering Facility: [facility] Address: [address] [place], [place] [address]Performed By: #### 20764-7 #### [facility] CLIA [id number] [address] [place] [address] 60214Tvfucgtr granulocytes (Bld) [#/Vol]10*3/uLNormal<0.10[facility] on above:Order Comment: Specimen Type: BLOOD SPECIMEN Ordering Facility: [facility] Address: [address] [place], [place] [address]Performed By: #### 46374-1 #### [facility] CLIA [id number] [address] [place] [address] 67194Asinqvnx granulocytes/100 WBC (Bld)0.4 %NormalWVUMedicine Barnesville Hospital on above:Order Comment: Specimen Type: BLOOD SPECIMEN Ordering Facility: [facility] Address: [address] [place], [place] [address]Performed By: #### 55403-1 #### [facility] CLIA [id number] [address] [place] [address] 71997Ykyjbffzxua (Bld) [#/Vol]1.28 10*3/uLNormal1.00-4.00[facility] on above:Order Comment: Specimen Type: BLOOD SPECIMEN Ordering Facility: [facility] Address: [address] [place], [place] [address]Performed By: #### 95414-0 #### [facility] CLIA [id number] [address] [place] [address] 21061Rfhsdpwwzba/100 WBC (Bld)22.9 %NormalWVUMedicine Barnesville Hospital on above:Order Comment: Specimen Type: BLOOD SPECIMEN Ordering Facility: [facility] Address: [address] [place], [place] [address]Performed By: #### 17606-7 #### [facility] CLIA [id number] [address] [place] [address] 25496LIX (RBC) [Entitic mass]34.0 qeObjzyc31.0-34.0[facility] on above:Order Comment: Specimen Type: BLOOD SPECIMEN Ordering Facility: [facility] Address: [address] [place], [place] [address]Performed By: #### 40390-7 #### [facility] CLIA [id number] [address] [place] [address] 85128BOOG (RBC) [Mass/Vol]32.9 g/hYOhxgii85.5-36.0[facility] on above:Order Comment: Specimen Type: BLOOD SPECIMEN Ordering Facility: [facility] Address: [address] [place], [place] [address]Performed By: #### 26439-7 #### [facility] CLIA [id number] [address] [place] [address] 93867MXF (RBC) [Entitic vol]103.6 tZSiya31.0-100.0[facility] on above:Order Comment: Specimen Type: BLOOD SPECIMEN Ordering Facility: [facility] Address: [address] [place], [place] [address]Performed By: #### 30600-2 #### [facility] CLIA [id number] [address] [place], [place] [address]Fsntztqcv (Bld) [#/Vol]0.43 10*3/uLNormal<0.87[facility] on above:Order Comment: Specimen Type: BLOOD SPECIMEN Ordering Facility: [facility] Address: [address] [place], [place] [address]Performed By: #### 38755-9 #### [facility] CLIA [id number] [address] [place], [place] [address]Zmsoxslwr/100 WBC (Bld)7.7 %NormalKettering Health Dayton Comment on above:Order Comment: Specimen Type: BLOOD SPECIMEN Ordering Facility: [facility] Address: [address] [place], [place] [address]Performed By: #### 91545-9 #### [facility] CLIA [id number] [address] [place] [address] 48649Cvljbktnbrr (Bld) [#/Vol]3.61 10*3/uLNormal1.45-7.50[facility] on above:Order Comment: Specimen Type: BLOOD SPECIMEN Ordering Facility: [facility] Address: [address] [place], [place] [address]Performed By: #### 96309-1 #### [facility] CLIA [id number] [address] [place] [address] 85607Pchsvcnwkrt/100 WBC (Bld)64.7 %NormalWVUMedicine [facility] Hospital on above:Order Comment: Specimen Type: BLOOD SPECIMEN Ordering Facility: [facility] Address: [address] [place], [place] [address]Performed By: #### 87509-9 #### [facility] CLIA [id number] [address] [place] [address] 518[address]Jbwkhdbnr RBC (Bld) [#/Vol]10*3/uLNormal<0.01[facility] on above:Order Comment: Specimen Type: BLOOD SPECIMEN Ordering Facility: [facility] Address: [address] [place], [place] [address]Performed By: #### 55767-1 #### [facility] CLIA [id number] [address] [place], [place] [address]Jhdscujuc RBC/100 WBC (Bld) [Ratio]0.0 /100 WBCNormalCKindred Hospital Lima on above:Order Comment: Specimen Type: BLOOD SPECIMEN Ordering Facility: [facility] Address: [address] [place], [place] [address]Performed By: #### 05420-7 #### [facility] CLIA [id number] [address] [place], [place] [address]Lmgfvlfu mean volume (Bld) [Entitic vol]8.7 fLLow9.0-12.7 [facility] on above:Order Comment: Specimen Type: BLOOD SPECIMEN Ordering Facility: [facility] Address: [address] [place], [place] [address]Performed By: #### 19817-3 #### [facility] CLIA [id number] [address] [place] [address] 52187Apszmogoj (Bld) [#/Vol]190 10*3/oHYemcwd428-472KazxaoajhWVUMedicine Barnesville Hospital on above:Order Comment: Specimen Type: BLOOD SPECIMEN Ordering Facility: [facility] Address: [address] [place], [place] [address]Performed By: #### 30309-2 #### [facility] CLIA [id number] [address] [place] [address] 39697VNJ (Bld) [#/Vol]3.38 10*6/uLLow3.90-5.20[facility] on above:Order Comment: Specimen Type: BLOOD SPECIMEN Ordering Facility: [facility] Address: [address] [place], [place] [address]Performed By: #### 70132-8 #### [facility] CLIA [id number] [address] [place] [address] 74871FHJ (Bld) [#/Vol]5.58 10*3/uLNormal3.70-1100[facility] on above:Order Comment: Specimen Type: BLOOD SPECIMEN Ordering Facility: [facility] Address: [address] [place] [place], [place] [address]Ffveplumd By: #### 70951-1 #### [facility] CLIA [id number] [address] [place] [address] 39497XOTQTIvx 04-02-8546BFZXBBOfyxh (SP) Office ([facility]) HENRIETTA GROSS ([id number]) 1940 F Date Time Provider Department 05/16/25 [...] Patient is under the care of a human resources benefits assistant for CKD stage 3, with stable renal function. Recent labs show creatinine at 1.31 mg/dL, BUN at 29 mg/dL, and eGFR at 40 mL/min/1.73m?. She is seen annually by her human resources benefits assistant, with the frequency of visits previously every six months. Patient reports weight loss, currently weighing 147 lbs, and attributes this to loss of muscle mass. She experiences limitations in physical activity due to back and bone issues. She is taking a multivitamin that includes B12 and has reduced calcium supplementation as per her human resources benefits assistant's recommendation. MEDICATIONS: insulin glargine-yfgn (SEMGLEE) 100 unit/mL [...] 134 mg by mouth daily at bedtime. taidm-0d-juf-epa-fish oil 300-1,000 mg cpDR Take by mouth. [...] skin without augusto (more content not included)...Normal [facility] DaytonComprehensive metabolic 2000 panelon 11-19-5695Xrockca [Mass/Vol]4.3 g/dLNormal3.9-4.9CKindred Hospital [facility] on above:Order Comment: Specimen Type: BLOOD SPECIMEN Ordering Facility: [facility] Address: [address] [place], [place] [address]Performed By: #### 41041-3 #### [facility] CLIA [id number] [address] [place] [address] 664[address]VFX [Catalytic activity/Vol]25 U/YCbb47-127QlsxpriybWVUMedicine Barnesville Hospital on above:Order Comment: Specimen Type: BLOOD SPECIMEN Ordering Facility: [facility] Address: [address] [id number] By: #### 53574-2 #### [facility] CLIA [id number] [address] [place], [place] [address]HXG [Catalytic activity/Vol]11 U/LNormal7-38[facility] on above:Order Comment: Specimen Type: BLOOD SPECIMEN Ordering Facility: [facility] Address: [address] [place], [place] [address]Performed By: #### 70148-9 #### [facility] CLIA [id number] [address] [place] [address] 39290Ohqbb gap [Moles/Vol]8 mmol/LNormal8-15[facility] on above:Order Comment: Specimen Type: BLOOD SPECIMEN Ordering Facility: [facility] Address: [address] [place], [place] [address]Performed By: #### 59610-8 #### [facility] CLIA [id number] [address] [place] [address] 28448SJG [Catalytic activity/Vol]18 U/YQoiqrw45-31WtwjliuqqWVUMedicine Barnesville Hospital on above:Order Comment: Specimen Type: BLOOD SPECIMEN Ordering Facility: [facility] Address: [address] [place], [place] [address]Performed By: #### 08679-1 #### [facility] CLIA [id number] [address] [place] [address] 85227Yfrzpoura [Mass/Vol]0.3 mg/dLNormal0.2-1.3CKindred Hospital [facility] on above:Order Comment: Specimen Type: BLOOD SPECIMEN Ordering Facility: [facility] Address: [address] [place], [place] [address]Performed By: #### 21473-2 #### [facility] CLIA [id number] [address] [place] [address] 36249Bolxbul [Mass/Vol]9.6 mg/dLNormal8.5-10.2CKindred Hospital [facility] on above:Order Comment: Specimen Type: BLOOD SPECIMEN Ordering Facility: [facility] Address: [address] [place], [place] [address]Performed By: #### 77583-3 #### [facility] CLIA [id number] [address] [place], [place] [address]Yvqxtbyu [Moles/Vol]102 mmol/UWfkxba90-947NwprcevfcWVUMedicine Barnesville Hospital on above:Order Comment: Specimen Type: BLOOD SPECIMEN Ordering Facility: [facility] Address: [address] [place], [place] [address]Performed By: #### 60104-2 #### [facility] CLIA [id number] [address] [place], [place] [address]IX2 [Moles/Vol]28 mmol/INgxwwl67-21DzepaolgqKettering Health Dayton Comment on above:Order Comment: Specimen Type: BLOOD SPECIMEN Ordering Facility: [facility] Address: [address] [place], [place] [address]Performed By: #### 71215-1 #### [facility] CLIA [id number] [address] [place] [address] 76592Snkjlchlwi [Mass/Vol]1.31 mg/dLHigh0.58-0.96[facility] on above:Order Comment: Specimen Type: BLOOD SPECIMEN Ordering Facility: [facility] Address: [address] [place], [place] [address]Performed By: #### 25835-1 #### [facility] CLIA [id number] [address] [place] [address] 94766yNMDbx SerPlBld CKD-EPI 059562 mL/min/1.73m???Low>=60[facility] on above:Order Comment: Specimen Type: BLOOD SPECIMEN Ordering Facility: [facility] Address: [address] [place], [place] [address]Result Comment: Estimated Glomerular Filtration Rate (eGFR) is [...] not accurately reflect actual GFR.Performed By: #### 13613-1 #### [facility] CLIA [id number] [address] [place], [place] [address]Uszompg [Mass/Vol]180 mg/oUSirb35-33UuelsqybyKettering Health Dayton Comment on above:Order Comment: Specimen Type: BLOOD SPECIMEN Ordering Facility: [facility] Address: [address] [place], [place] [address]Result Comment: The [place] [employer] (ADA) provides guidance for cutoff [...] Standards of Medical Care in Diabetes 2016, [place] [employer]. Diabetes Care. 2016.39(Suppl 1).Performed By: #### 03202-1 #### [facility] CLIA [id number] [address] [place] [address] 14372Vyigsuhmc [Moles/Vol]4.6 mmol/LNormal3.7-5.1CProtestant Deaconess Hospitalment on above:Order Comment: Specimen Type: BLOOD SPECIMEN Ordering Facility: [facility] Address: [address] [place], [place] [address]Performed By: #### 25070-4 #### [facility] CLIA [id number] [address] [place], [place] [address]Yhqmoda [Mass/Vol]6.6 g/dLNormal6.3-8.0[facility] on above:Order Comment: Specimen Type: BLOOD SPECIMEN Ordering Facility: [facility] Address: [address] [place], [place] [address]Performed By: #### 12539-7 #### [facility] CLIA [id number] [address] [place] [address] [place] [address]Zqhwhe [Moles/Vol]138 mmol/MYclwth830-018RsgmsszetWVUMedicine Barnesville Hospital on above:Order Comment: Specimen Type: BLOOD SPECIMEN Ordering Facility: [facility] Address: [address] [place], [place] [address]Performed By: #### 98294-3 #### [facility] CLIA [id number] [address] [place], [place] [address]Jicr nitrogen [Mass/Vol]29 mg/dLHigh7-21[facility] on above:Order Comment: Specimen Type: BLOOD SPECIMEN Ordering Facility: [facility] Address: [address] [place], [place] [address]Performed By: #### 90761-5 #### [facility] CLIA [id number] [address] [place] [address] 106[address]Hdahucxtlsf/100 WBC Auto (Bld)Ordered By: KELSEY BOWERS on 04-14-2858Uoavwlalxoy/100 WBC (Bld)3.8 %[facility] Erythrocyte distribution width Auto (RBC) [Ratio]Ordered By: KELSEY BOWERS on 62-52-8090Gxhdivtpzsy distribution width (RBC) [Ratio]13.0 %11.5-15.0[facility] HospitalFerritin SerPl-mCncon 56-22-9799Iorthvcd [Mass/Vol]209.0 ng/zPJkyk58.7-205.1CKindred Hospital Lima on above:Order Comment: Specimen Type: BLOOD SPECIMEN Ordering Facility: [facility] Address: [address] [place], [place] [address]Performed By: #### 08234-2, 2276-4 #### [facility] CLIA [id number] [address] [place] [id number] [place] [address] [place] AMERICAHematocrit Auto (Bld) [Volume fraction]Ordered By: KELSEY BOWERS on 75-39-0007Pjtyptdzmq (Bld) [Volume fraction]35.0 %Low36.0-46.0[facility] HospitalHemoglobin [Mass/volume] in BloodOrdered By: KELSEY BOWERS on 17-96-0616Waaghxbfei (Bld) [Mass/Vol]11.5 g/dL11.5-15.5FCincinnati VA Medical CenterIron and Iron binding capacity panelon 57-53-9246Otij [Mass/Vol]101 ug/oERdwsga99-869JofsvgjqfWVUMedicine Barnesville Hospital on above:Order Comment: Specimen Type: BLOOD SPECIMEN Ordering Facility: [facility] Address: [address] [place], [place] [address]Performed By: #### 69611-5, 2275-4 #### [facility] CLIA [id number] [address] [place] [address] [place] AMERICAIron binding capacity [Mass/Vol]345 ug/jMIuzqhu081-391VkrlpnzwjWVUMedicine Barnesville Hospital on above:Order Comment: Specimen Type: BLOOD SPECIMEN Ordering Facility: [facility] Address: [address] [place], [place] [address]Performed By: #### 01751-5, 4 #### [facility] IA [id number] [address] [place] [address] [place] AMERICAIron/TIBC [Molar ratio]29.3 %Efdkkd26.0-57.0[facility] on above:Order Comment: Specimen Type: BLOOD SPECIMEN Ordering Facility: [facility] Address: [address] [place], [place] [address]Performed By: #### 99544-4, 2276-01 #### [facility] CLIA [id number] [address] [place], [place] [address] [place] AMERICAIron binding capacity [Mass/volume] in Serum or PlasmaOrdered By: KELSEY BOWERS on 75-62-5504Evox binding capacity [Mass/Vol]345 ug/iD120-175EbztdqpyqAshtabula General HospitalIron saturation [Mass Fraction] in Serum or PlasmaOrdered By: KELSEY BOWERS on 79-53-6231Eyfd saturation [Mass fraction]29.3 %15.0-57.0[facility] HospitalLaboratory - Chemistry and Chemistry - challengeOrdered By: KELSEY BOWERS on 51-56-5916Boxwkfwb [Mass/Vol]209.0 ng/zFMjly74.7-205.1FCincinnati VA Medical CenterIron [Mass/Vol]101 ug/kJ81-169SugcksifaAshtabula General HospitalLaboratory - Hematology and Cell countsOrdered By: KELSEY BOWERS on 79-27-5459Jzdrgimmpkx (Bld) [#/Vol]0.21 10*3/uL<0.46[facility] HospitalImmature granulocytes/100 WBC (Bld)0.4 %[facility] Leukocytes [#/volume] corrected for nucleated erythrocytes in Blood by Automated counOrdered By: KELSEY BOWERS on 98-04-8640YTO corrected for nucl RBC Auto (Bld) [#/Vol]5.58 k/uL3.70-11.00[facility] HospitalLymphocytes Auto (Bld) [#/Vol]Ordered By: KELSEY BOWERS on 81-71-2235Gkwvscibhqf (Bld) [#/Vol]1.28 10*3/uL1.00-4.00[facility] HospitalLymphocytes/100 WBC Auto (Bld) Ordered By: KELSEY BOWERS on 43-26-0468Kqkpatmhwqu/100 WBC (Bld)22.9 %[facility] CenterH Auto (RBC) [Entitic mass]Ordered By: KELSEY BOWERS on 27-84-1441XHG (RBC) [Entitic mass]34.0 pg26.0-34.0[facility] HospitalMCHC Auto (RBC) [Mass/Vol]Ordered By: KELSEY BOWERS on 53-00-2198OQZW (RBC) [Mass/Vol]32.9 g/dL30.5-36.0[facility] HospitalMCV Auto (RBC) [Entitic vol]Ordered By: KELSEY BOWERS on 30-09-9066SCW (RBC) [Entitic vol]103.6 qBYyoo77.0-100.0[facility] HospitalMonocytes Auto (Bld) [#/Vol] Ordered By: KELSEY BOWERS on 34-74-6319Cuubrdchn (Bld) [#/Vol]0.43 10*3/uL<0.87 [facility] HospitalMonocytes/100 WBC Auto (Bld)Ordered By: KELSEY BOWERS on 59-99-8775Fqttnxygl/100 WBC (Bld)7.7 %[facility] HospitalNeutrophils Auto (Bld) [#/Vol]Ordered By: KELSEY BOWERS on 05-16-2025 Neutrophils (Bld) [#/Vol]3.61 10*3/uL1.45-7.50[facility] Neutrophils/100 WBC Auto (Bld)Ordered By: KELSEY BOWERS on 05-16-2025 Neutrophils/100 WBC (Bld)64.7 %[facility] HospitalNo Panel InformationOrdered By: KELSEY BOWERS on 59-96-6970Dwnxoqbd Granulocyte # (Auto) <0.03 k/uL<0.10[facility] HospitalNucleated RBC Auto (Bld) [#/Vol] Ordered By: KELSEY BOWERS on 85-58-1118Oojihvqjg RBC (Bld) [#/Vol]10*3/uL<0.01 [facility] HospitalNucleated erythrocytes [Presence] in Blood by Automated countOrdered By: KELSEY BOWERS on 32-87-5629Ezqroywrb RBC Auto Ql (Bld) 0.0 /100{WBC}[facility] HospitalPlatelet mean volume Auto (Bld) [Entitic vol]Ordered By: KELSEY BOWERS on 30-34-0667Lyhlojcd mean volume (Bld) [Entitic vol]8.7 fLLow9.0-12.7FCincinnati VA Medical CenterPlatelets Auto (Bld) [#/Vol]Ordered By: KELSEY BOWERS on 74-62-2752Zrdwsqeto (Bld) [#/Vol]190 10*3/oV563-652PbrylajiuAshtabula General HospitalRBC Auto (Bld) [#/Vol]Ordered By: KELSEY BOWERS on 04-06-1941KPO (Bld) [#/Vol]3.38 10*6/uLLow3.90-5.20[facility] HospitalCNPNon 58-95-8776IETENnecqblne (HEMASA) HENRIETTA GROSS ([id number]) 1940 F Date Time Provider Department 05/09/25 [...] BLOOD COUNT AND DIFFERENTIAL [SQCBCDIF] Order #: [id number] FUTURE COMPREHENSIVE METABOLIC PANEL [SQCMP] Order #: [id number] FUTURE IRON AND TIBC [SQIRON] Order #: [id number] FUTURE FERRITIN [SQFERR] Order #: [id number] FUTURE Prescriptions as of 05/09/2025 - magnesium [...] mg by mouth daily at bedtime. - islqp-5j-hou-epa-fish oil 300-1,000 mg cpDR Take by mouth. [...] (HCC)*10/30/2021 Encounter Status:Closed by POOL ESCOBEDO on 05/09/25NormalCLakeHealth [facility] W Auto Differential panel (Bld)on 44-67-5815Tlwsaltzl (Bld) [#/Vol] 0.03 10*3/uLNormal<0.11CKindred Hospital Lima on above:Order Comment: Specimen Type: BLOOD SPECIMEN Ordering Facility: [facility] Address: [address] [place], [place] [address]Performed By: #### [id number], [id number] #### [facility] CLIA [id number] [address] [place], [place] [address] [address] [place] AMERICABasophils/100 WBC (Bld)0.5 % NormalWVUMedicine Barnesville Hospital on above:Order Comment: Specimen Type: BLOOD SPECIMEN Ordering Facility: [facility] Address: [address] [place], [place] [address]Performed By: #### 21052-0, 2276-01 #### [facility] CLIA [id number] [address] [place] [address] [place] AMERICADifferential cell count method Nom (Bld)AutoNormalCKindred Hospital Lima on above:Order Comment: Specimen Type: BLOOD SPECIMEN Ordering Facility: [facility] Address: [address] [place], [place] [address]Performed By: #### 89131-1, 2276-01 #### [facility] CLIA [id number] [address] [place] [address] [place] AMERICAEosinophils (Bld) [#/Vol] 0.23 10*3/uLNormal<0.46[facility] on above:Order Comment: Specimen Type: BLOOD SPECIMEN Ordering Facility: [facility] Address: [address] [place], [place] [address]Performed By: #### 22402-3, 2276-01 #### [facility] CLIA [id number] [address] [place] [address] [place] AMERICAEosinophils/100 WBC (Bld)3.7 %NormalWVUMedicine Barnesville Hospital on above:Order Comment: Specimen Type: BLOOD SPECIMEN Ordering Facility: [facility] Address: [address] [place], [place] [address]Performed By: #### 91684-7, 2276-01 #### [facility] CLIA [id number] [address] [place] [address] [place] OF AMERICAErythrocyte distribution width (RBC) [Ratio]13.2 %Cpyqfo18.5-15.0[facility] on above:Order Comment: Specimen Type: BLOOD SPECIMEN Ordering Facility: [facility] Address: [address] [place], [place] [address]Performed By: #### 75647-9, 2276-01 #### [facility] CLIA [id number] [address] [place], [place] [address] [place] OF AMERICAHematocrit (Bld) [Volume fraction]34.2 %Low36.0-46.0[facility] on above:Order Comment: Specimen Type: BLOOD SPECIMEN Ordering Facility: [facility] Address: [address] [place], [place] [address]Performed By: #### 73228-2, 2276-01 #### [facility] CLIA [id number] [address] [place] [address] [place] AMERICAHemoglobin (Bld) [Mass/Vol] 11.3 g/dLLow11.5-15.5CKindred Hospital Lima on above:Order Comment: Specimen Type: BLOOD SPECIMEN Ordering Facility: [facility] Address: [address] [place], [place] [address]Performed By: #### 83052-4, 2276-01 #### [facility] CLIA [id number] [address] [place] [address] [place] AMERICAImmature granulocytes (Bld) [#/Vol]10*3/uLNormal<0.10[facility] on above:Order Comment: Specimen Type: BLOOD SPECIMEN Ordering Facility: [facility] Address: [address] [place], [place] [address]Performed By: #### 03036-7, 2276-01 #### [facility] CLIA [id number] [address] [place] [address] [place] AMERICAImmature granulocytes/100 WBC (Bld)0.3 %NormalWVUMedicine Barnesville Hospital on above:Order Comment: Specimen Type: BLOOD SPECIMEN Ordering Facility: [facility] Address: [address] [place], [place] [address]Performed By: #### 08391-7, 2276-01 #### [facility] CLIA [id number] [address] [place] [address] [place] AMERICALymphocytes (Bld) [#/Vol] 1.36 10*3/uLNormal1.00-4.00[facility] on above:Order Comment: Specimen Type: BLOOD SPECIMEN Ordering Facility: [facility] Address: [address] [place], [place] [address]Performed By: #### 81525-1, 2276-01 #### [facility] CLIA [id number] [address] [place] [address] [place] AMERICALymphocytes/100 WBC (Bld) 21.6 %NormalWVUMedicine Barnesville Hospital on above:Order Comment: Specimen Type: BLOOD SPECIMEN Ordering Facility: [facility] Address: [address] [place], [place] [address]Performed By: #### 11297-6, 2276-01 #### [facility] CLIA [id number] [address] [place] [address] STATES OF AMERICAMCH (RBC) [Entitic mass]33.9 djNrcgyt31.0-34.0[facility] on above:Order Comment: Specimen Type: BLOOD SPECIMEN Ordering Facility: [facility] Address: [address] [place], [place] [address]Performed By: #### 45568-6, 2276-01 #### [facility] CLIA [id number] [address] [place] [address] [place] OF [facility] HOSPITALMCHC (RBC) [Mass/Vol]33.0 g/mMUbkxrw40.5-36.0[facility] on above:Order Comment: Specimen Type: BLOOD SPECIMEN Ordering Facility: [facility] Address: [address] [place], [place] [address]Performed By: #### 50444-1, 2276-01 #### [facility] CLIA [id number] [address] [place] [address] OF [facility] HOSPITALV (RBC) [Entitic vol]102.7 uRMawf92.0-100.0[facility] on above:Order Comment: Specimen Type: BLOOD SPECIMEN Ordering Facility: [facility] Address: [address] [place], [place] [address]Performed By: #### 31772-2, 2275-4 #### [facility] CLIA [id number] [address] [place], [place] [address] [place] AMERICAMonocytes (Bld) [#/Vol]0.50 10*3/uLNormal<0.87[facility] on above:Order Comment: Specimen Type: BLOOD SPECIMEN Ordering Facility: [facility] Address: [address] [place], [place] [address]Performed By: #### 32512-0, 2276-01 #### [facility] CLIA [id number] [address] [place] [address] [place] AMERICAMonocytes/100 WBC (Bld)7.9 % NormalWVUMedicine Barnesville Hospital on above:Order Comment: Specimen Type: BLOOD SPECIMEN Ordering Facility: [facility] Address: [address] [place], [place] [address]Performed By: #### 57627-8, 2276-01 #### [facility] CLIA [id number] [address] [place] [address] [place] AMERICANeutrophils (Bld) [#/Vol] 4.16 10*3/uLNormal1.45-7.50[facility] on above:Order Comment: Specimen Type: BLOOD SPECIMEN Ordering Facility: [facility] Address: [address] [place], [place] [address]Performed By: #### 22969-7, 2276-01 #### [facility] CLIA [id number] [address] [place], [place] [address] [place] AMERICANeutrophils/100 WBC (Bld) 66.0 %NormalWVUMedicine Barnesville Hospital on above:Order Comment: Specimen Type: BLOOD SPECIMEN Ordering Facility: [facility] Address: [address] [place], [place] [address]Performed By: #### 62880-0, 2276-01 #### [facility] CLIA [id number] [address] [place] [address] [place] AMERICANucleated RBC (Bld) [#/Vol] 10*3/uLNormal<0.01[facility] on above:Order Comment: Specimen Type: BLOOD SPECIMEN Ordering Facility: [facility] Address: [address] [place], [place] [address]Performed By: #### 72283-7, 2276-01 #### [facility] CLIA [id number] [address] [place] [address] [place] AMERICANucleated RBC/100 WBC (Bld) [Ratio]0.0 /100 WBCNormalCKindred Hospital Lima on above:Order Comment: Specimen Type: BLOOD SPECIMEN Ordering Facility: [facility] Address: [address] [place], [place] [address]Performed By: #### 77037-3, 2276-01 #### [facility] CLIA [id number] [address] [place] [address] [place] AMERICAPlatelet mean volume (Bld) [Entitic vol]8.6 fLLow9.0-12.7CKindred Hospital Lima on above:Order Comment: Specimen Type: BLOOD SPECIMEN Ordering Facility: [facility] Address: [address] [place], [place] [address]Performed By: #### 69862-8, 2276-01 #### [facility] CLIA [id number] [address] [place] [address] [place] AMERICAPlatelets (Bld) [#/Vol]193 10*3/eWHvvirx445-626ApoybywjdWVUMedicine Barnesville Hospital on above:Order Comment: Specimen Type: BLOOD SPECIMEN Ordering Facility: [facility] Address: [address] [place], [place] [address]Performed By: #### 80263-8, 2276-01 #### [facility] CLIA [id number] [address] [place] [address] [place] AMERICARBC (Bld) [#/Vol]3.33 10*6/uLLow3.90-5.20[facility] on above:Order Comment: Specimen Type: BLOOD SPECIMEN Ordering Facility: [facility] Address: [address] [place], [place] [address]Performed By: #### 12758-1, 6-4 #### [facility] [id number] [address] [place] [address] [place] AMERICAWBC (Bld) [#/Vol]6.30 10*3/uLNormal3.70-11.00[facility] on above:Order Comment: Specimen Type: BLOOD SPECIMEN Ordering Facility: [facility] Address: [address] [place], [place] [address]Performed By: #### 20707-4, 2275-4 #### [facility] [id number] [address] [place] [address] STATES OF SPKCMWLCtB7f (Bld)on 04-06-2025 Average glucose Estimated from glycated hemoglobin (Bld) [Mass/Vol]183 mg/dL NormalWVUMedicine [facility]ville Hospital on above:Order Comment: Specimen Type: BLOOD SPECIMEN Ordering Facility: [facility] Address: [address] [place], [place] [address]Result Comment: eAG: (Estimated average glucose) is a calculated value from HgbA1c and is utility sales representative of the average blood glucose level in the last 2-3 month period.Performed By: #### 62143-3, 6-4 #### [facility] [id number] [address] [place] [address] [place] CSIEJSBWsO6p (Bld) [Mass fraction] 8.0 %High4.3-5.6CKindred Hospital [facility]ima on above:Order Comment: Specimen Type: BLOOD SPECIMEN Ordering Facility: [facility] Address: [address] [place], [place] [address]Result Comment: [place] [employer] guidelines indicate that patients with HgbA1c in the range 5.7-6.4% are at increased risk for development of diabetes, and intervention by lifestyle modification may be beneficial. 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 - vbugn-1w-eji-epa-fish oil 300-1,000 mg cpDR Take by mouth. [...] (HCC)*10/30/2021 Encounter Status:Closed by MARANDA SCHMID on 03/31/25NormalCLakeHealth [facility] W Auto Differential panel (Bld)on 90-44-7667Luulbgncd (Bld) [#/Vol] 10*3/uLNormal<0.11CKindred Hospital [facility] on above:Order Comment: Specimen Type: BLOOD SPECIMEN Ordering Facility: [facility] Address: [address] [place], [place] [address]Performed By: #### 68862-5, 2276-4 #### [facility] CLIA [id number] [address] [place] [address] [place] AMERICABasophils/100 WBC (Bld)0.4 % NormalWVUMedicine [facility] Hospital on above:Order Comment: Specimen Type: BLOOD SPECIMEN Ordering Facility: [facility] Address: [address] [place], [place] [address]Performed By: #### 23565-4, 2276-01 #### [facility] CLIA [id number] [address] [place] [address] [place] AMERICADifferential cell count method Nom (Bld)AutoNormalCKindred Hospital [facility]ima on above:Order Comment: Specimen Type: BLOOD SPECIMEN Ordering Facility: [facility] Address: [address] [place], [place] [address]Performed By: #### 74145-2, 2276-01 #### [facility] CLIA [id number] [address] [place] [address] [place] AMERICAEosinophils (Bld) [#/Vol] 0.26 10*3/uLNormal<0.46[facility] on above:Order Comment: Specimen Type: BLOOD SPECIMEN Ordering Facility: [facility] Address: [address] [place], [place] [address]Performed By: #### 86837-0, 2276-01 #### [facility] CLIA [id number] [address] [place] [address] [place] AMERICAEosinophils/100 WBC (Bld)5.1 %NormalWVUMedicine [facility] Hospital on above:Order Comment: Specimen Type: BLOOD SPECIMEN Ordering Facility: [facility] Address: [address] [place], [place] [address]Performed By: #### 28014-5, 2276-01 #### [facility] CLIA [id number] [address] [place] [address] [place] AMERICAErythrocyte distribution width (RBC) [Ratio]12.4 %Ffdtlq92.5-15.0[facility] on above:Order Comment: Specimen Type: BLOOD SPECIMEN Ordering Facility: [facility] Address: [address] [place], [place] [address]Performed By: #### 66972-3, 6-4 #### [facility] CLIA [id number] [address] [place] [address] [place] AMERICAHematocrit (Bld) [Volume fraction]33.2 %Low36.0-46.0[facility] on above:Order Comment: Specimen Type: BLOOD SPECIMEN Ordering Facility: [facility] Address: [address] [place], [place] [address]Performed By: #### 22991-5, 2275-4 #### [facility] CLIA [id number] [address] [place] [address] [place] AMERICAHemoglobin (Bld) [Mass/Vol] 10.9 g/dLLow11.5-15.5CKindred Hospital [facility] on above:Order Comment: Specimen Type: BLOOD SPECIMEN Ordering Facility: [facility] Address: [address] [place], [place] [address]Performed By: #### 32898-7, 2275-4 #### [facility] CLIA [id number] [address] [place] [address] [place] AMERICAImmature granulocytes (Bld) [#/Vol]10*3/uLNormal<0.10[facility] on above:Order Comment: Specimen Type: BLOOD SPECIMEN Ordering Facility: [facility] Address: [address] [place], [place] [address]Performed By: #### 75291-2, 2275-4 #### [facility] CLIA [id number] [address] [place] [address] [place] AMERICAImmature granulocytes/100 WBC (Bld)0.4 %NormalWVUMedicine [facility] on above:Order Comment: Specimen Type: BLOOD SPECIMEN Ordering Facility: [facility] Address: [address] [place], [place] [address]Performed By: #### 22744-2, 2275- #### [facility] CLIA [id number] [address] [place] [address] [place] AMERICALymphocytes (Bld) [#/Vol] 1.20 10*3/uLNormal1.00-4.00[facility] on above:Order Comment: Specimen Type: BLOOD SPECIMEN Ordering Facility: [facility] Address: [address] [place], [place] [address]Performed By: #### 40816-2, 2276-01 #### [facility] CLIA [id number] [address] [place] [address] [place] AMERICALymphocytes/100 WBC (Bld) 23.3 %NormalWVUMedicine [facility] Hospital on above:Order Comment: Specimen Type: BLOOD SPECIMEN Ordering Facility: [facility] Address: [address] [place], [place] [address]Performed By: #### 37240-1, 2276-01 #### [facility] CLIA [id number] [address] [place] [address] (RBC) [Entitic mass]33.6 yhUhnawe76.0-34.0[facility] on above:Order Comment: Specimen Type: BLOOD SPECIMEN Ordering Facility: [facility] Address: [address] [place], [place] [address]Performed By: #### 67534-4, 2276-01 #### [facility] CLIA [id number] [address] [place] [address] (RBC) [Mass/Vol]32.8 g/dWMvaxtw45.5-36.0[facility] on above:Order Comment: Specimen Type: BLOOD SPECIMEN Ordering Facility: [facility] Address: [address] [place], [place] [address]Performed By: #### 86006-9, 2276-01 #### [facility] CLIA [id number] [address] [place] [address] [place] AMERICAMCV (RBC) [Entitic vol]102.5 xNAhra56.0-100.0[facility] on above:Order Comment: Specimen Type: BLOOD SPECIMEN Ordering Facility: [facility] Address: [address] [place], [place] [address]Performed By: #### 47039-2, 2276-01 #### [facility] CLIA [id number] [address] [place] [address] [place] AMERICAMonocytes (Bld) [#/Vol]0.44 10*3/uLNormal<0.87[facility] on above:Order Comment: Specimen Type: BLOOD SPECIMEN Ordering Facility: [facility] Address: [address] [place], [place] [address]Performed By: #### 61540-5, 2276-01 #### [facility] CLIA [id number] [address] [place] [address] [place] AMERICAMonocytes/100 WBC (Bld)8.6 % NormalWVUMedicine [facility]ville Hospital on above:Order Comment: Specimen Type: BLOOD SPECIMEN Ordering Facility: [facility] Address: [address] [place], [place] [address]Performed By: #### 74857-1, 2276-01 #### [facility] CLIA [id number] [address] [place] [address] [place] AMERICANeutrophils (Bld) [#/Vol] 3.20 10*3/uLNormal1.45-7.50[facility] on above:Order Comment: Specimen Type: BLOOD SPECIMEN Ordering Facility: [facility] Address: [address] [place], [place] [address]Performed By: #### 65310-0, 2276-01 #### [facility] CLIA [id number] [address] [place] [address] [place] AMERICANeutrophils/100 WBC (Bld) 62.2 %NormalWVUMedicine Barnesville Hospital on above:Order Comment: Specimen Type: BLOOD SPECIMEN Ordering Facility: [facility] Address: [address] [place], [place] [address]Performed By: #### 86442-3, 2275-4 #### [facility] CLIA [id number] [address] [place] [address] [place] AMERICANucleated RBC (Bld) [#/Vol] 10*3/uLNormal<0.01[facility] on above:Order Comment: Specimen Type: BLOOD SPECIMEN Ordering Facility: [facility] Address: [address] [place], [place] [address]Performed By: #### 37342-2, 2275-4 #### [facility] [place] [id number] [address] [place] [address] [place] AMERICANucleated RBC/100 WBC (Bld) [Ratio]0.0 /100 WBCNormalCKindred Hospital [facility]ima on above:Order Comment: Specimen Type: BLOOD SPECIMEN Ordering Facility: [facility] Address: [address] [place], [place] [address]Performed By: #### 06449-6, 2276-01 #### [facility] CLIA [id number] [address] [place] [address] [place] AMERICAPlatelet mean volume (Bld) [Entitic vol]8.5 fLLow9.0-12.7CKindred Hospital [facility] on above:Order Comment: Specimen Type: BLOOD SPECIMEN Ordering Facility: [facility] Address: [address] [place], [place] [address]Performed By: #### 48801-0, 2275- #### [facility] CLIA [id number] [address] [place] [address] [place] AMERICAPlatelets (Bld) [#/Vol]266 10*3/yNOjzltr840-518FdvjrzyafWVUMedicine Barnesville Hospital on above:Order Comment: Specimen Type: BLOOD SPECIMEN Ordering Facility: [facility] Address: [address] [place], [place] [address]Performed By: #### 04432-4, 2276-4 #### [facility] CLIA [id number] [address] [place] [address] [place] CITY HOSPITALRBC (Bld) [#/Vol]3.24 10*6/uLLow3.90-5.20[facility] on above:Order Comment: Specimen Type: BLOOD SPECIMEN Ordering Facility: [facility] Address: [address] [place], [place] [address]Performed By: #### 09993-9, 2276-4 #### [facility] CLIA [id number] [address] [place], [place] [address] (Bld) [#/Vol]5.14 10*3/uLNormal3.70-11.00[facility] on above:Order Comment: Specimen Type: BLOOD SPECIMEN Ordering Facility: [facility] Address: [address] [place], [place] [address]Performed By: #### 68849-1, 2276-4 #### [facility] CLIA [id number] [address] [place] [address] OF AMERICACNOVSPon 12-11-0670DWUBQY Visit (SP) Office (HEMASA) HENRIETTA GROSS ([id number]) 1940 F Date Time Provider Department 02/22/25 [...] 134 mg by mouth daily at bedtime. yiart-8r-huv-epa-fish oil 300-1,000 mg cpDR Take by mouth. [...] initially returned to baselin (more content not included)...NormalRegency Hospital CompanyPNon 70-14-1952JVEWDhiiggfzi (NCCAP) HENRIETTA GROSS ([id number]) 1940 F Date Time Provider Department 02/22/25 [...] Date Reviewed: 02/22/2025 Reviewed by: Maranda Schmid APRN.SPREADER OPERATOR - Fully Assessed Reason for Visit: Results [...] mg by mouth daily at bedtime. - nfqqq-6j-tth-epa-fish oil 300-1,000 mg cpDR Take by mouth. [...] (HCC)*10/30/2021 Encounter Status:Closed by RAMIREZ RINCON on 02/25/25NormalCHolmes County Joel Pomerene Memorial HospitalComprehensive metabolic 2000 panelon 28-92-8739Bbzbsth [Mass/Vol]4.2 g/dLNormal3.9-4.9CKindred Hospital [facility] on above:Order Comment: Specimen Type: BLOOD SPECIMEN Ordering Facility: [facility] Address: [address] [place], [place] [address]Performed By: #### 86380-4, 2275- #### [facility] CLIA [id number] [address] [place], [place] [address] [place] AMERICAALP [Catalytic activity/Vol] 39 U/RHrjosr35-912IojkjihstWVUMedicine [facility] Hospital on above:Order Comment: Specimen Type: BLOOD SPECIMEN Ordering Facility: [facility] Address: [address] [place], [place] [address]Performed By: #### 90547-6, 2275- #### [facility] CLIA [id number] [address] [place], [place] [address] [place] [Catalytic activity/Vol] 28 U/LNormal7-38[facility] on above:Order Comment: Specimen Type: BLOOD SPECIMEN Ordering Facility: [facility] Address: [address] [place], [place] [address]Performed By: #### 65664-9, 2276-01 #### [facility] CLIA [id number] [address] [place], [place] [address] [place] AMERICAAnion gap [Moles/Vol]10 mmol/LNormal8-15[facility] on above:Order Comment: Specimen Type: BLOOD SPECIMEN Ordering Facility: [facility] Address: [address] [place], [place] [address]Performed By: #### 25354-2, 2275-4 #### [facility] CLIA [id number] [address] [place], [place] [address] [place]ST [Catalytic activity/Vol] 52 U/YMapy84-06XkrvpksuwWVUMedicine [facility] on above:Order Comment: Specimen Type: BLOOD SPECIMEN Ordering Facility: [facility] Address: [address] [place], [place] [address]Performed By: #### 06146-7, 2276-01 #### [facility] CLIA [id number] [address] [place] [address] [place] AMERICABilirubin [Mass/Vol]0.3 mg/dLNormal0.2-1.3CKind[facility] on above:Order Comment: Specimen Type: BLOOD SPECIMEN Ordering Facility: [facility] Address: [address] [place], [place] [address]Performed By: #### 85437-8, 2276-01 #### [facility] CLIA [id number] [address] [place] [address] [place] AMER[place]ACalcium [Mass/Vol]10.2 mg/dL Normal8.5-10.2CKindred [facility] on above:Order Comment: Specimen Type: BLOOD SPECIMEN Ordering Facility: [facility] Address: [address] [place], [place] [address]Performed By: #### 72316-5, 2276-01 #### [facility] CLIA [id number] [address] [place] [address] [place] AMERICAChloride [Moles/Vol]98 mmol/BJvlqle90-708EhvtxtxggWVUMedicine Barnesville Hospital on above:Order Comment: Specimen Type: BLOOD SPECIMEN Ordering Facility: [facility] Address: [address] [place], [place] [address]Performed By: #### 26554-6, 2276-01 #### [facility] CLIA [id number] [address] [place] [address] [place] AMERICACO2 [Moles/Vol]27 mmol/L Zangcr76-51JgbeoumdjWVUMedicine Barnesville Hospital on above:Order Comment: Specimen Type: BLOOD SPECIMEN Ordering Facility: [facility] Address: [address] [place], [place] [address]Performed By: #### 27519-3, 2275-4 #### [facility] IA [id number] [address] [place] [address] [place] AMERICACreatinine [Mass/Vol]1.29 mg/dLHigh0.58-0.96[facility] on above:Order Comment: Specimen Type: BLOOD SPECIMEN Ordering Facility: [facility] Address: [address] [place], [place] [address]Performed By: #### 78050-9, 4 #### [facility] IA [id number] [address] [place] [address] [place] AMERICACreatinine and Glomerular filtration rate.predicted panel (S/P/Bld)41 mL/min/1.73m???Low>=60[facility] on above:Order Comment: Specimen Type: BLOOD SPECIMEN Ordering Facility: [facility] Address: [address] [place], [place] [address]Result Comment: Estimated Glomerular Filtration Rate (eGFR) is [...] not accurately reflect actual GFR.Performed By: #### 51459-7, 2276-01 #### [facility] CLIA [id number] [address] [place] [address] [place] AMERICAGlucose [Mass/Vol]323 mg/dL Cmsm83-19EnashwvbdWVUMedicine Barnesville Hospital on above:Order Comment: Specimen Type: BLOOD SPECIMEN Ordering Facility: [facility] Address: [address] [place], [place] [address]Result Comment: The [place] Diabetes Association (ADA) provides guidance for cutoff [...] Standards of Medical Care in Diabetes 2016, [place] [employer]. Diabetes Care. 2016.39(Suppl 1).Performed By: #### 55345-5, 2276-01 #### [facility] CLIA [id number] [address] [place] [address] [place] AMERICAPotassium [Moles/Vol]4.8 mmol/LNormal3.7-5.1CKindred Hospital Lima on above:Order Comment: Specimen Type: BLOOD SPECIMEN Ordering Facility: [facility] Address: [address] [place], [place] [address]Performed By: #### 89008-3, 2276-01 #### [facility] CLIA [id number] [address] [place] [address] [place] AMERICAProtein [Mass/Vol]7.0 g/dL Normal6.3-8.0[facility] on above:Order Comment: Specimen Type: BLOOD SPECIMEN Ordering Facility: [facility] Address: [address] [place], [place] [address]Performed By: #### 83706-5, 2276-01 #### [facility] CLIA [id number] [address] [place] [address] [place] AMERICASodium [Moles/Vol]135 mmol/L Mtk686-540NfqpnxnwdWVUMedicine Barnesville Hospital on above:Order Comment: Specimen Type: BLOOD SPECIMEN Ordering Facility: [facility] Address: [address] [place], [place] [address]Performed By: #### 78542-5, 2276-01 #### [facility] CLIA [id number] [address] [place] [address] [place] AMERICAUrea nitrogen [Mass/Vol]29 mg/dLHigh7-21[facility] on above:Order Comment: Specimen Type: BLOOD SPECIMEN Ordering Facility: [facility] Address: [address] [place], [place] [address]Performed By: #### 52390-0, 6-4 #### [facility] CLIA [id number] [address] [place] [address] [place] AMERICAFerritin SerPl-mCncon 00-51-2340Ujrxetgf [Mass/Vol]353.0 ng/zCIhmi83.7-205.1CHolmes [facility] Comment on above:Order Comment: Specimen Type: BLOOD SPECIMEN Ordering Facility: [facility] Address: [address] [place], [place] [address]Performed By: #### 91646-9, 2275-4 #### [facility] CLIA [id number] [address] [place] [address] [place] OF AMERICAIron and Iron binding capacity panelon 38-17-7514Gcse [Mass/Vol]71 ug/sALbgcms29-173KblixxusuWVUMedicine Barnesville Hospital on above:Order Comment: Specimen Type: BLOOD SPECIMEN Ordering Facility: [facility] Address: [address] [place], [place] [address]Performed By: #### 51099-7, 2275-4 #### [facility] CLIA [id number] [address] [place] [address] [place] AMERICAIron binding capacity [Mass/Vol]346 ug/bQRskxbf455-522WcpibexfmWVUMedicine Barnesville Hospital on above:Order Comment: Specimen Type: BLOOD SPECIMEN Ordering Facility: [facility] Address: [address] [place], [place] [address]Performed By: #### 00565-3, 2275-4 #### [facility] CLIA [id number] [address] [place] [address] [place] AMERICAIron/TIBC [Molar ratio]20.5 %Oehhvu31.0-57.0K[facility]tering Health DaytonComment on above:Order Comment: Specimen Type: BLOOD SPECIMEN Ordering Facility: [facility] Address: [address] [place], [place] [address]Performed By: #### 53045-5, 2276-4 #### [facility] CLIA [id number] [address] [place] [address] [place] [address] [place] OF AMERICASurgical Pathology Reporton 68-05-3514Wehwvknr Pathology Report[address] [place] [address]- Surgical Pathology Report Collected Date/Time: 01/28/2025 13:00 EDT Pathologist: Jeremy MCLEAN PhD, Ashley Brra Received Date/Time: 01/30/2025 18:00 EDT Belinda Marks [...] recognition technology and might contain unintended computerized firer watertender errors.NormalFisher Medstar Union Memorial HospitalComment on above:Performed By: #### [id number] #### [facility] [address] [place], [place] [address]Pasobqk mean value [Mass/volume] in Blood Estimated from glycated hemoglobinon 40-44-3202Zysciui glucose Estimated from glycated hemoglobin (Bld) [Mass/Vol]Glucose mean value [Mass/volume] in Blood Estimated from glycated hemoglobinAshtabula General HospitalHemoglobin A1c percentageon 36-05-9412JvW3c (Bld) [Mass fraction]Hemoglobin A1c percentageHigh 4.5-6.2FCincinnati VA Medical CenterComment on above:ADA RECOMMENDED LIMIT 4.0 - 6.0ADA THERAPEUTIC TARGET < 7.0ACTION SUGGESTED> 7.0Basic metabolic 2000 panelon 99-11-1239Jtfhg gap [Moles/Vol]9 mmol/LNormal8-15K[facility]tering Health DaytonComment on above:Order Comment: Specimen Type: BLOOD SPECIMEN Ordering Facility: [facility] Address: [address] [place], [place] [address]Performed By: #### 45936-4, 2276-4 #### [facility] CLIA [id number] [address] [place] [address] [place] AMERICACalcium [Mass/Vol]10.4 mg/dL High8.5-10.2ClevelPending sale to [facility] on above:Order Comment: Specimen Type: BLOOD SPECIMEN Ordering Facility: [facility] Address: [address] [place], [place] [address]Performed By: #### 06373-3, 6-4 #### [facility] CLIA [id number] [address] [place] [address] [place] AMERICAChloride [Moles/Vol]101 mmol/YSvfwyz89-172CnpykrssrWVUMedicine Barnesville Hospital on above:Order Comment: Specimen Type: BLOOD SPECIMEN Ordering Facility: [facility] Address: [address] [place], [place] [address]Performed By: #### 50108-6, 6-4 #### [facility] CLIA [id number] [address] [place] [address] [place] AMERICACO2 [Moles/Vol]25 mmol/L Gtxdsp40-17ZlswpxisxWVUMedicine Barnesville Hospital on above:Order Comment: Specimen Type: BLOOD SPECIMEN Ordering Facility: [facility] Address: [address] [place], [place] [address]Performed By: #### 60611-9, 6-4 #### [facility] CLIA [id number] [address] [place] [address] [place] AMERICACreatinine [Mass/Vol]1.40 mg/dLHigh0.58-0.96[facility] on above:Order Comment: Specimen Type: BLOOD SPECIMEN Ordering Facility: [facility] Address: [address] [place], [place] [address]Performed By: #### 02121-3, 2275-4 #### [facility] IA [id number] [address] [place] [address] [place] AMERICACreatinine and Glomerular filtration rate.predicted panel (S/P/Bld)37 mL/min/1.73m???Low>=60[facility] on above:Order Comment: Specimen Type: BLOOD SPECIMEN Ordering Facility: [facility] Address: [address] [place], [place] [address]Result Comment: Estimated Glomerular Filtration Rate (eGFR) is [...] not accurately reflect actual GFR.Performed By: #### 90479-3, 6-4 #### [facility] CLIA [id number] [address] [place] [address] [place] AMERICAGlucose [Mass/Vol]267 mg/dL Elxg67-50SdklkcsejWVUMedicine Barnesville Hospital on above:Order Comment: Specimen Type: BLOOD SPECIMEN Ordering Facility: [facility] Address: [address] [place], [place] [address]Result Comment: The [place] Diabetes Association (ADA) provides guidance for cutoff [...] Standards of Medical Care in Diabetes 2016, [place] [employer]. Diabetes Care. 2016.39(Suppl 1).Performed By: #### 09514-9, 2275- #### [facility] CLIA [id number] [address] [place] [address] [place] AMERICAPotassium [Moles/Vol]4.5 mmol/LNormal3.7-5.1CKindred Hospital Lima on above:Order Comment: Specimen Type: BLOOD SPECIMEN Ordering Facility: [facility] Address: [address] [place], [place] [address]Performed By: #### 63537-2, 2275- #### [facility] CLIA [id number] [address] [place] [address] [place] AMERICASodium [Moles/Vol]135 mmol/L Uen217-583TbefckcsdWVUMedicine Barnesville Hospital on above:Order Comment: Specimen Type: BLOOD SPECIMEN Ordering Facility: [facility] Address: [address] [place], [place] [address]Performed By: #### 92138-6, 2275-4 #### [facility] CLIA [id number] [address] [place] [address] OF AMERICAUrea nitrogen [Mass/Vol]33 mg/dLHigh7-21[facility] on above:Order Comment: Specimen Type: BLOOD SPECIMEN Ordering Facility: [facility] Address: [address] [place], [place] [address]Performed By: #### 53579-0, 2276-4 #### [facility] CLIA [id number] [address] [place], [place] [address]K [address]CB W Auto Differential panel (Bld)on 49-91-0489Ugaixgxde (Bld) [#/Vol]0.03 10*3/uLNormal<0.11CKindred Hospital Lima on above:Order Comment: Specimen Type: BLOOD SPECIMEN Ordering Facility: [facility] Address: [address] [place], [place] [address]Performed By: #### 21472-0 #### [facility] CLIA [id number] [address] [place] [address] 88483Qtxhsorzq/100 WBC (Bld)0.5 %NormalKettering Health Dayton Comment on above:Order Comment: Specimen Type: BLOOD SPECIMEN Ordering Facility: [facility] Address: [address] [place], [place] [address]Performed By: #### 13062-3 #### [facility] CLIA [id number] [address] [place] [address] 36041Uyrbayjrlmkr cell count method Nom (Bld)AutoNormalCKindred Hospital Lima on above:Order Comment: Specimen Type: BLOOD SPECIMEN Ordering Facility: [facility] Address: [address] [place], [place] [address]Performed By: #### 41829-3 #### [facility] CLIA [id number] [address] [place] [address]Wrhdjplyzos (Bld) [#/Vol]0.17 10*3/uLNormal<0.46[facility] on above:Order Comment: Specimen Type: BLOOD SPECIMEN Ordering Facility: [facility] Address: [address] [place], [place] [address]Performed By: #### 48440-8 #### [facility] CLIA [id number] [address] [place], [place] [address]Itzebjeupxa/100 WBC (Bld)2.9 %NormalKettering Health Dayton Comment on above:Order Comment: Specimen Type: BLOOD SPECIMEN Ordering Facility: [facility] Address: [address] [place], [place] [address]Performed By: #### 62220-7 #### [facility] CLIA [id number] [address] [place], [place] [address]Qoepefrqtll distribution width (RBC) [Ratio]13.2 %Normal 11.5-15.0[facility] on above:Order Comment: Specimen Type: BLOOD SPECIMEN Ordering Facility: [facility] Address: [address] [place], [place] [address]Performed By: #### 35195-8 #### [facility] CLIA [id number] [address] [place] [address] 97682Dlbjjzpzgp (Bld) [Volume fraction]34.3 %Low36.0-46.0[facility] DaytonComment on above:Order Comment: Specimen Type: BLOOD SPECIMEN Ordering Facility: [facility] Address: [address] [place], [place] [address]Performed By: #### 35997-5 #### [facility] CLIA [id number] [address] [place] [address] 04472Nhjnxtqovi (Bld) [Mass/Vol]11.5 g/kTNriwqf50.5-15.5CKindred Hospital Lima on above:Order Comment: Specimen Type: BLOOD SPECIMEN Ordering Facility: [facility] Address: [address] [place], [place] [address]Performed By: #### 32127-1 #### [facility] CLIA [id number] [address] [place] [address] 52250Tdcoiblh granulocytes (Bld) [#/Vol]10*3/uLNormal<0.10[facility] on above:Order Comment: Specimen Type: BLOOD SPECIMEN Ordering Facility: [facility] Address: [address] [place], [place] [address]Performed By: #### 76482-6 #### [facility] CLIA [id number] [address] [place] [address] 29827Qqgnbogx granulocytes/100 WBC (Bld)0.3 %NormalWVUMedicine Barnesville Hospital on above:Order Comment: Specimen Type: BLOOD SPECIMEN Ordering Facility: [facility] Address: [address] [place], [place] [address]Performed By: #### 66075-9 #### [facility] CLIA [id number] [address] [place] [address] 44473Navljfegdat (Bld) [#/Vol]1.33 10*3/uLNormal1.00-4.00[facility] on above:Order Comment: Specimen Type: BLOOD SPECIMEN Ordering Facility: [facility] Address: [address] [place], [place] [address]Performed By: #### 84777-0 #### [facility] CLIA [id number] [address] [place] [address] 97011Sbtraqzitza/100 WBC (Bld)22.6 %NormalWVUMedicine Barnesville Hospital on above:Order Comment: Specimen Type: BLOOD SPECIMEN Ordering Facility: [facility] Address: [address] [place], [place] [address]Performed By: #### 90988-9 #### [facility] CLIA [id number] [address] [place] [address] 35612BYT (RBC) [Entitic mass]34.4 vdHino17.0-34.0[facility] on above:Order Comment: Specimen Type: BLOOD SPECIMEN Ordering Facility: [facility] Address: [address] [place], [place] [address]Performed By: #### 41965-3 #### [facility] CLIA [id number] [address] [place], [place] [address]IVQV (RBC) [Mass/Vol]33.5 g/gSPyfzur56.5-36.0[facility] on above:Order Comment: Specimen Type: BLOOD SPECIMEN Ordering Facility: [facility] Address: [address] [place], [place] [address]Performed By: #### 68055-9 #### [facility] CLIA [id number] [address] [place], [place] [address]YSP (RBC) [Entitic vol]102.7 bKNlaq15.0-100.0[facility] on above:Order Comment: Specimen Type: BLOOD SPECIMEN Ordering Facility: [facility] Address: [address] [place], [place] [address]Performed By: #### 66099-9 #### [facility] CLIA [id number] [address] [place] [address] 55099Rqrthcpfx (Bld) [#/Vol]0.46 10*3/uLNormal<0.87[facility] on above:Order Comment: Specimen Type: BLOOD SPECIMEN Ordering Facility: [facility] Address: [address] [place], [place] [address]Performed By: #### 62893-0 #### [facility] CLIA [id number] [address] [place] [address] 17953Fzmnarfec/100 WBC (Bld)7.8 %NormalKettering Health Dayton Comment on above:Order Comment: Specimen Type: BLOOD SPECIMEN Ordering Facility: [facility] Address: [address] [place], [place] [address]Performed By: #### 05467-3 #### [facility] CLIA [id number] [address] [place] [address] 32542Ityqruxzuuf (Bld) [#/Vol]3.88 10*3/uLNormal1.45-7.50[facility] on above:Order Comment: Specimen Type: BLOOD SPECIMEN Ordering Facility: [facility] Address: [address] [place], [place] [address]Performed By: #### 28043-8 #### [facility] CLIA [id number] [address] [place] [address] 48592Udwecvaqhjo/100 WBC (Bld)65.9 %NormalWVUMedicine Barnesville Hospital on above:Order Comment: Specimen Type: BLOOD SPECIMEN Ordering Facility: [facility] Address: [address] [place], [place] [address]Performed By: #### 00605-7 #### [facility] CLIA [id number] [address] [place] [address] 11489Chwdknjus RBC (Bld) [#/Vol]10*3/uLNormal<0.01[facility] on above:Order Comment: Specimen Type: BLOOD SPECIMEN Ordering Facility: [facility] Address: [address] [place], [place] [address]Performed By: #### 60653-4 #### [facility] CLIA [id number] [address] [place] [address] 26654Tqhdkpdid RBC/100 WBC (Bld) [Ratio]0.0 /100 WBCNormalCKindred Hospital Lima on above:Order Comment: Specimen Type: BLOOD SPECIMEN Ordering Facility: [facility] Address: [address] [place], [place] [address]Performed By: #### 20170-6 #### [facility] CLIA [id number] [address] [place] [address] 42191Amlodsfh mean volume (Bld) [Entitic vol]9.1 fLNormal9.0-12.7 [facility] on above:Order Comment: Specimen Type: BLOOD SPECIMEN Ordering Facility: [facility] Address: [address] [place], [place] [address]Performed By: #### 10431-9 #### [facility] CLIA [id number] [address] [place] [address] 59813Ubmfneoor (Bld) [#/Vol]216 10*3/kJIvbdfq886-528CqsjznzplWVUMedicine [facility] Hospital on above:Order Comment: Specimen Type: BLOOD SPECIMEN Ordering Facility: [facility] Address: [address] [place], [place] [address]Performed By: #### 72563-3 #### [facility] CLIA [id number] [address] [place], [place] [address]YDL (Bld) [#/Vol]3.34 10*6/uLLow3.90-5.20[facility] on above:Order Comment: Specimen Type: BLOOD SPECIMEN Ordering Facility: [facility] Address: [address] [place], [place] [address]Performed By: #### 28356-7 #### [facility] CLIA [id number] [address] [place], [place] [address]XPB (Bld) [#/Vol]5.89 10*3/uLNormal3.70-11.00[facility] on above:Order Comment: Specimen Type: BLOOD SPECIMEN Ordering Facility: [facility] Address: [address] [place], [place] [address]Performed By: #### 65313-1 #### [facility] CLIA [id number] [address] [place] [address] 75810FOHDZUlz 52-69-8698VUGYBMYtuyk (SP) Office ([facility]) HENRIETTA GROSS ([id number]) 1940 F Date Time Provider Department 09/02/24 [...] 134 mg by mouth daily at bedtime. rqrbx-8x-oct-epa-fish oil 300-1,000 mg cpDR Take by mouth. [...] her anemia worsened as (more content not included)...NormalSt. Mary's Medical Center, Iront[facility] Campuson 15-79-7293VCTFRnrrplfif ([place]) HENRIETTA GROSS ([id number]) 1940 F Date Time Provider Department 08/24/24 [...] Fully Assessed Reason for Visit: Lab Orders [0961] Primary Visit Diagnosis:Anemia of chronic renal failure, stage 3b (HCC) (HCC) [N18.32, D63.1] Order(s):COMPLETE BLOOD COUNT AND DIFFERENTIAL [SQCBCDIF] Order #: [id number] FUTURE BASIC METABOLIC PANEL [SQBMP] Order #: [id number] FUTURE Prescriptions as of 08/24/2024 - HYDROcodone-Acetaminophen [...] mg by mouth daily at bedtime. - sayhb-5w-vkn-epa-fish oil 300-1,000 mg cpDR Take by mouth. [...] (HCC)*10/30/2021 Encounter Status:Closed by ATIF YOUSIF on 08/24/24NoSelect Medical Cleveland Clinic Rehabilitation Hospital, Edwin ShawErythrocyte distribution width Auto (RBC) [Ratio]on 07-06-2024 Erythrocyte distribution width (RBC) [Ratio]13.1 %11.0-15.0[facility] HospitalEstimated glomerular filtration rate (GFR) non- Americanon 04-75-4239VFR/1.73 sq M.predicted among non-blacks MDRD (S/P/Bld) [Vol rate/Area]32 mL/min/{1.73_m2}Low>=60[facility] HospitalGlucose mean value [Mass/volume] in Blood Estimated from glycated hemoglobinon 21-69-1794Hkvfujy glucose Estimated from glycated hemoglobin (Bld) [Mass/Vol]169 mg/dLAshtabula General HospitalHematocrit Auto (Bld) [Volume fraction]on 68-73-5946Pameqajizg (Bld) [Volume fraction]35.6 %Low36.0-48.0[facility] HospitalHemoglobin [Mass/volume] in Bloodon 81-76-1477Wkxuurbrhj (Bld) [Mass/Vol]11.4 g/dLLow12.0-16.0[facility] HospitalLaboratory - Chemistry and Chemistry - challengeon 99-00-8071Jqkwfavcz Ql (U)NegativeNEGATIVE [facility] HospitalGlucose (U) [Mass/Vol]250 mg/dLAbnormalNEGATIVE [facility] HospitalKetones Ql (U)NegativeNEGATIVEAshtabula General HospitalpH (U)6.0 [pH]5.0-9.0[facility] Specific gravity (U) [Rel density]1.0201.005-1.025[facility] HospitalUrobilinogen Qn (U)0.2 {Jaquan'U}/dL0.2-1.0[facility] HospitalAlbumin [Mass/Vol]3.3 g/dLLow3.4-5.0[facility] Calcium [Mass/Vol]9.3 mg/dL8.5-10.1FCincinnati VA Medical CenterChloride [Moles/Vol]103 mmol/Q92-258IvociltttAshtabula General HospitalCO2 [Moles/Vol]29.9 mmol/L21.0-32.0[facility] HospitalCreatinine [Mass/Vol]1.55 mg/dL High0.55-1.02[facility] HospitalGFR/1.73 sq M.predicted MDRD (S/P/Bld) [Vol rate/Area]39 mL/min/{1.73_m2}Low>=60[facility] HospitalGlucose [Mass/Vol]169 mg/vDYqjl53-450DusuhshtfAshtabula General Hospital Magnesium [Mass/Vol]1.7 mg/dLLow1.8-2.4FCincinnati VA Medical Center Potassium [Moles/Vol]4.3 mmol/L3.5-5.1FCleveland Clinic Mentor Hospitalodium [Moles/Vol]138 mmol/L978-767KcgimadhsAshtabula General HospitalUrate [Mass/Vol]6.8 mg/dLHigh2.6-6.0[facility] HospitalUrea nitrogen [Mass/Vol]38.0 mg/dLHigh7.0-18.0[facility] HospitalUrea nitrogen/Creatinine [Mass ratio]24.5 mg/mgAshtabula General HospitalLaboratory - Hematology and Cell countson 52-85-1962LoS7n (Bld) [Mass fraction]7.5 %High4.5-6.2FCincinnati VA Medical CenterComment on above:ADA RECOMMENDED LIMIT 4.0 - 6.0ADA THERAPEUTIC TARGET < 7.0ACTION SUGGESTED> 7.0Laboratory - Specimen informationon [id number] (U)CLOUDYAbnormalCLEARFCincinnati VA Medical Center Color (U)LT. YELLOWYELLOWAshtabula General HospitalLaboratory - Urinalysison [id number] esterase Test strip Ql (U)LARGEAbnormalNEGATIVE [facility] HospitalMucus Ql (Urine sed)NONE SEENNONE [facility] CampusNitrite Ql (U)NegativeNEGATIVEAshtabula General HospitalProtein Ql (U)NegativeNEG/TRACEAshtabula General HospitalLeukocytes [#/volume] corrected for nucleated erythrocytes in Blood by Automated counon [id number] corrected for nucl RBC Auto (Bld) [#/Vol]4.3 10 3/uL4.0-11.0 [facility] CenterH Auto (RBC) [Entitic mass]on 72-24-3502KLZ (RBC) [Entitic mass]33.4 pg26.7-34.0[facility] HospitalMCHC Auto (RBC) [Mass/Vol]on 75-49-0424UVNF (RBC) [Mass/Vol]32.0 g/dL29.9-35.2FCincinnati VA Medical CenterMCV Auto (RBC) [Entitic vol]on 66-56-1653VAA (RBC) [Entitic vol]104.4 wAEnof46.0-99.0[facility]ula [facility] HospitalNo Panel Informationon 10-78-9156Ozpfh BacteriaLARGE #/HPFAbnormalNONE [facility] CampusUrine Occult BloodNegativeNEGKettering Health Washington TownshipUrine Other CastsNONE SEEN #/LPFNONE [facility] CampusUrine Other CrystalsNone Seen #/HPFNone [facility] HospitalUrine RBC0-2 #/HPF0-2FCincinnati VA Medical CenterUrine Squamous Epithelial CellsFEW #/LPFAbnormalNONE/RAREAshtabula General HospitalUrine HJR75-99 #/HPFAbnormalNONE SEENAshtabula General Hospital25- Hydroxy Vitamin D Total35.9 ng/mLAshtabula General HospitalComment on above:<20 ng/mL Vit D krbqbkadf09-<30 ng/mL Vit D hvskdbpdzuhr62-736 ng/mL Vit D sufficient>100 ng/mL Potential ToxicityParathyroid Hormone (Intact)31 pg/mL15-65 [facility]ula [facility] HospitalComment on above:Performed at: [place] [facility] [address] [id number] Director: Rajendra Ramos PhD, Phone: [phone] Level3.7 mg/dL2.6-4.7FCincinnati VA Medical CenterPlatelet mean volume Auto (Bld) [Entitic vol]on 20-02-1181Joxpoesm mean volume (Bld) [Entitic vol]8.8 fLLow9.5-13.5FCincinnati VA Medical Center Platelets Auto (Bld) [#/Vol]on 74-81-3986Eycwbdauw (Bld) [#/Vol]225 10 3/uL 150-450Asht[facility]ula General HospitalRBC Auto (Bld) [#/Vol]on 22-39-2707CFA (Bld) [#/Vol]3.41 10 6/uLLow4.20-5.40[facility] - Andersonerum or plasma anion gap determinationon 09-53-8253Gizmg gap [Moles/Vol]9.4 mmol/L [facility] HospitalBasic metabolic 2000 panelOrdered By: Jose Miranda on 99-10-3380Tgvke gap [Moles/Vol]9 mmol/L9 - 18 mmol/LCleveland Clinic Calcium [Mass/Vol]11.1 mg/dLHigh8.5 - 10.2 mg/dLCleveland ClinicChloride [Moles/Vol]104 mmol/L97 - 105 mmol/LCleveland ClinicCO2 [Moles/Vol]28 mmol/L22 - 30 mmol/LCleveland ClinicCreatinine [Mass/Vol]1.57 mg/dLHigh0.58 - 0.96 mg/dL [facility] NorthGFR/1.73 sq M.predicted among non-blacks MDRD (S/P/Bld) [Vol [...] eGFRmay not accurately reflect actual GFR.Glucose [Mass/Vol]185 mg/pSZppo59 - 99 mg/dLClermont County Hospital on above:The [place] Diabetes Association (ADA) provides guidance for cutoff [...] Standards of Medical Care in Diabetes 2016, [place] [employer]. Diabetes Care. 2016.39(Suppl 1). Interpretation and review of laboratory resultsAbnormalCleveland ClinicPotassium [Moles/Vol]5.4 mmol/LHigh3.7 - 5.1 mmol/LCleveland ClinicSodium [Moles/Vol]141 mmol/L136 - 144 mmol/LCleveland ClinicUrea nitrogen [Mass/Vol]40 mg/dLHigh7 - 21 mg/dLSumma Health Akron CampusCB W Auto Differential panel (Bld)on 12-74-7394Hhsvietam (Bld) [#/Vol]0.04 10*3/uLNIUniversity Hospitals Ahuja Medical CenterBasophils/100 WBC (Bld)0.8 %[facility] NorthDifferential cell count method Nom (Bld)Auto [facility] NorthEosinophils (Bld) [#/Vol]0.22 10*3/uLNINFPremier Health Miami Valley Hospital North Eosinophils/100 WBC (Bld)4.4 %[facility] NorthErythrocyte distribution width (RBC) [Ratio]12.9 %11.5 - 15.0 %[facility] NorthHematocrit (Bld) [Volume fraction]35.3 %Low36.0 - 46.0 %[facility] NorthHemoglobin (Bld) [Mass/Vol]11.8 g/dL11.5 - 15.5 g/dLPremier Health Miami Valley Hospital NorthImmature granulocytes (Bld) [#/Vol]NINF [facility] NorthImmature granulocytes/100 WBC (Bld)0.4 %[facility] Interpretation and review of laboratory resultsAbnormalCTriHealth Good Samaritan Hospital Lymphocytes (Bld) [#/Vol]1.43 10*3/[facility] HospitalLymphocytes/100 WBC (Bld) 28.8 %[facility] Medina HospitalH (RBC) [Entitic mass]34.0 pg26.0 - 34.0 pgCDetwiler Memorial HospitalHC (RBC) [Mass/Vol]33.4 g/dL30.5 - 36.0 g/dLCleveland Clinic Medina HospitalV (RBC) [Entitic vol]101.7 lDIcae14.0 - 100.0 fLCTriHealth Good Samaritan HospitalMonocytes (Bld) [#/Vol] 0.48 10*3/NIUniversity Hospitals Ahuja Medical CenterMonocytes/100 WBC (Bld)9.7 %[facility] Neutrophils (Bld) [#/Vol]2.78 10*3/[facility] HospitalNeutrophils/100 WBC (Bld) 55.9 %[facility] NorthNucleated RBC (Bld) [#/Vol]NINFCTriHealth Good Samaritan HospitalNucleated RBC/100 WBC (Bld) [Ratio]0.0 %/100 WBCPremier Health Miami Valley Hospital NorthPlatelet mean volume (Bld) [Entitic vol]8.8 fLLow9.0 - 12.7 fLCveterans health administration ClinicPlatelets (Bld) [#/Vol]203 10*3/[facility] HospitalRBC (Bld) [#/Vol]3.47 10*6/uLLow3.90 - 5.20 m/[facility] HospitalWBC (Bld) [#/Vol]4.97 10*3/[facility] HospitalNo Panel Informationon 55-42-1344Ywkgxbhpviy Hormone (Intact)27 pg/yR13-45DutbodvvwAshtabula General HospitalComment on above:Performed at: - [facility] [address] [id number] Director: Rajendra Ramos PhD, Phone: [phone] metabolic 2000 panelon 81-12-9882Fkciq gap [Moles/Vol]9 mmol/L9 - 18 mmol/LCleveland ClinicCalcium [Mass/Vol]10.2 mg/dL8.5 - 10.2 mg/dLTucson ClinicChloride [Moles/Vol]101 mmol/L97 - 105 mmol/LCleveland ClinicCO2 [Moles/Vol]27 mmol/L22 - 30 mmol/LCleveland ClinicCreatinine [Mass/Vol]1.44 mg/dLHigh0.58 - 0.96 mg/dLPremier Health Miami Valley Hospital NorthEstimated Glomerular Filtration Rate36 mL/min/1.73mLow>=60 mL/min/1.73mCleveland ClinicGlucose [Mass/Vol]211 mg/dLHigh 74 - 99 mg/dLPremier Health Miami Valley Hospital NorthPotassium [Moles/Vol]4.2 mmol/L3.7 - 5.1 mmol/L [facility]-Fairhillodium [Moles/Vol]137 mmol/L136 - 144 mmol/LCleveland ClinicUrea nitrogen [Mass/Vol]37 mg/dLHigh7 - 21 mg/dLPremier Health Miami Valley Hospital NorthCB W Auto Differential panel (Bld)on 34-31-9810Nfixhgvyn (Bld) [#/Vol]0.03 10*3/uL<0.11 k/uLPremier Health Miami Valley Hospital NorthBasophils/100 WBC (Bld)0.5 %[facility] NorthDifferential cell count method Nom (Bld)AutoCleveland ClinicEosinophils (Bld) [#/Vol]0.19 10*3/uL<0.46 k/uLPremier Health Miami Valley Hospital NorthEosinophils/100 WBC (Bld)3.3 %[facility] Erythrocyte distribution width (RBC) [Ratio]13.1 %11.5 - 15.0 %[facility] Hematocrit (Bld) [Volume fraction]35.2 %Low36.0 - 46.0 %[facility] Hemoglobin (Bld) [Mass/Vol]11.5 g/dL11.5 - 15.5 g/dLPremier Health Miami Valley Hospital NorthImmature granulocytes (Bld) [#/Vol]<0.10 k/uLPremier Health Miami [facility] Hospital NorthImmature granulocytes/100 WBC (Bld)0.3 %[facility] NorthLymphocytes (Bld) [#/Vol]1.36 10*3/uL1.00 - 4.00 k/uLPremier Health Miami Valley Hospital NorthLymphocytes/100 WBC (Bld)23.4 %[facility] Medina HospitalH (RBC) [Entitic mass]33.1 pg26.0 - 34.0 pgClevelAlomere Health HospitalHC (RBC) [Mass/Vol]32.7 g/dL30.5 - 36.0 g/dLCleveland Clinic Medina HospitalV (RBC) [Entitic vol]101.4 yNPohu25.0 - 100.0 fLCleveland ClinicMonocytes (Bld) [#/Vol]0.50 10*3/uL<0.87 k/uLPremier Health Miami Valley Hospital NorthMonocytes/100 WBC (Bld)8.6 %[facility] NorthNeutrophils (Bld) [#/Vol]3.70 10*3/uL1.45 - 7.50 k/uLPremier Health Miami Valley Hospital NorthNeutrophils/100 WBC (Bld)63.9 %[facility] NorthNucleated RBC (Bld) [#/Vol]<0.01 k/uLPremier Health Miami [facility] Hospital NorthNucleated RBC/100 WBC (Bld) [Ratio]0.0 /100 WBCPremier Health Miami Valley Hospital NorthPlatelet mean volume (Bld) [Entitic vol]9.1 fL9.0 - 12.7 fLCveterans health administration ClinicPlatelets (Bld) [#/Vol]205 10*3/uL150 - 400 k/uLPremier Health Miami Valley Hospital NorthRBC (Bld) [#/Vol]3.47 10*6/uLLow3.90 - 5.20 m/uL [facility] NorthWBC (Bld) [#/Vol]5.80 10*3/uL3.70 - 11.00 k/uLPremier Health Miami [facility] Hospital North GLYCOHEMOGLOBIN A1Con 51-47-4307EYU RECOMMENDATIONSEE [facility] Mercy HospitalComment on above:Result Comment: ADA RECOMMENDED LIMIT 4.0 - 6.0 ADA THERAPEUTIC TARGET < 7.0 ACTION SUGGESTED > 7.0Performed By: #### DATA1C #### [facility] [address] [address] [address] Ashley LunaGlucose [Mass/Vol]174 mg/dLNormalThe [facility] HospitalComment on above:Performed By: #### DATA1C #### [facility] [address] [address] [address] Ashley LunaHbA1c (Bld) [Mass fraction]7.7 %Critically high4.5-6.2The [facility] HospitalComment on above:Performed By: #### DATA1C #### [facility] [address] [place] [address] Dr. Ashley LunaCBC W Auto Differential panel (Bld)on 05-74-1350Rdyodpoax (Bld) [#/Vol]<0.11 k/uLPremier Health Miami Valley Hospital NorthBasophils/100 WBC (Bld)0.4 %[facility] Differential cell count method Nom (Bld)AutoCleveland ClinicEosinophils (Bld) [#/Vol]0.24 10*3/uL<0.46 k/uLClemercy health lorain hospital ClinicEosinophils/100 WBC (Bld)4.9 % [facility] NorthErythrocyte distribution width (RBC) [Ratio]12.7 %11.5 - 15.0 % [facility] NorthHematocrit (Bld) [Volume fraction]33.0 %Low36.0 - 46.0 % BaptisteFisher-Titus Medical CenterHemoglobin (Bld) [Mass/Vol]10.6 g/dLLow11.5 - 15.5 g/dLPremier Health [facility] Hospital NorthImmature granulocytes (Bld) [#/Vol]<0.10 k/uLPremier Health [facility] Hospital NorthImmature granulocytes/100 WBC (Bld)0.2 %[facility] NorthLymphocytes (Bld) [#/Vol]1.61 10*3/uL1.00 - 4.00 k/uLPremier Health Miami Valley Hospital NorthLymphocytes/100 WBC (Bld)32.7 %[facility] HospitalH (RBC) [Entitic mass]33.8 pg26.0 - 34.0 pgClevelAlomere Health HospitalHC (RBC) [Mass/Vol]32.1 g/dL30.5 - 36.0 g/dLPremier Health Miami Valley Hospital NorthMCV (RBC) [Entitic vol]105.1 qYKfza67.0 - 100.0 fLCleveland ClinicMonocytes (Bld) [#/Vol]0.48 10*3/uL<0.87 k/uLPremier Health Miami Valley Hospital NorthMonocytes/100 WBC (Bld)9.8 %[facility] NorthNeutrophils (Bld) [#/Vol]2.56 10*3/uL1.45 - 7.50 k/uLPremier Health Miami [facility] Hospital NorthNeutrophils/100 WBC (Bld)52.0 %[facility] NorthNucleated RBC (Bld) [#/Vol]<0.01 k/uLPremier Health [facility] Nucleated RBC/100 WBC (Bld) [Ratio]0.0 /100 WBCPremier Health Miami Valley Hospital NorthPlatelet mean volume (Bld) [Entitic vol]9.0 fL9.0 - 12.7 fLClevelunc health chatham ClinicPlatelets (Bld) [#/Vol]189 10*3/uL150 - 400 k/uLPremier Health Miami Valley Hospital NorthRBC (Bld) [#/Vol]3.14 10*6/uLLow 3.90 - 5.20 m/uLPremier Health Miami Valley Hospital NorthWBC (Bld) [#/Vol]4.92 10*3/uL3.70 - 11.00 k/uL [facility] NorthComprehensive metabolic 2000 panelon 25-78-7001Lrzfgkt [Mass/Vol]4.1 g/dL3.9 - 4.9 g/dLTucson ClinicALP [Catalytic activity/Vol]27 U/LLow34 - 123 U/LCleveland ClinicALT [Catalytic activity/Vol]9 U/L7 - 38 U/L [facility] ClinicAnion gap [Moles/Vol]9 mmol/L9 - 18 mmol/LCleveland ClinicAST [Catalytic activity/Vol]12 U/LLow13 - 35 U/LCleveland ClinicBilirubin [Mass/Vol] 0.3 mg/dL0.2 - 1.3 mg/dLTucson ClinicCalcium [Mass/Vol]9.5 mg/dL8.5 - 10.2 mg/dLTucson ClinicChloride [Moles/Vol]100 mmol/L97 - 105 mmol/LCleveland ClinicCO2 [Moles/Vol]26 mmol/L22 - 30 mmol/LCleveland ClinicCreatinine [Mass/Vol]1.56 mg/dLHigh0.58 - 0.96 mg/dLPremier Health Miami [facility] Hospital NorthEstimated Glomerular Filtration Rate33 mL/min/1.73mLow>=60 mL/min/1.73mCleveland Hendricks Community HospitalGlucose [Mass/Vol]246 mg/iVFwaj80 - 99 mg/dLPremier Health [facility] Hospital NorthPotassium [Moles/Vol]4.6 mmol/L3.7 - 5.1 mmol/LCleveland ClinicProtein [Mass/Vol]6.7 g/dL6.3 - 8.0 g/dL [facility]-Fairhillodium [Moles/Vol]135 mmol/YTrn230 - 144 mmol/LCleveland [facility] Urea nitrogen [Mass/Vol]34 mg/dLHigh7 - 21 mg/dLPremier Health Miami Valley Hospital NorthFERRITIN BLDon 57-06-4954Zapezqil [Mass/Vol]307.0 ng/aHUwxi64.7 - 205.1 ng/mLCTriHealth Good Samaritan Hospital Iron and Iron binding capacity panelon 60-81-0306Mwpp [Mass/Vol]97 ug/dL41 - 186 ug/dLPremier Health Miami Valley Hospital NorthIron binding capacity [Mass/Vol]308 ug/dL232 - 386 ug/dL [facility] NorthIron/TIBC [Molar ratio]31.5 %15.0 - 57.0 %[facility] MAMM SCREEN 3D SHARIF CADon 02-20-8155ZP MAMM SCREEN 3D SHARIF CADPatient: HENRIETTA GROSS Exam Date: 12/11/2022 : 1940 Gender:F Ordering : DR ALEX NIX D.O. Admission #: [id number] Family : Order #: [id number] CLICK HERE TO VIEW EXAM RADIOLOGY REPORT [...] Treatments None Family Cancers None LOCATION: [facility] BREAST COMPOSITION: Almost entirely fatty. FINDINGS: [...] by: Merrill Khan M.D. on 12/12/2022 at 13:54[facility] Orthopedic CenterPROF CHEM 8 (BAS METB)on 47-85-6159Jystt gap [Moles/Vol]11.9 mmol/L NormalDunlap Memorial HospitalComment on above:Performed By: #### URTPCR #### [facility] [address] [place] [address] Dr. Ashley LunaCalcium [Mass/Vol]9.2 mg/dLNormal8.5-10.1[facility] Comment on above:Performed By: #### URTPCR #### [facility] [address] [place] [address] Dr. Ashley LunaChloride [Moles/Vol]102 mmol/FBhfyet12-493FqaDunlap Memorial Hospital Comment on above:Performed By: #### URTPCR #### [facility] [address] [place] [address] Dr. Ashley LunaCO2 [Moles/Vol]28.4 mmol/BUnpbfb43.0-32.0The [facility] Comment on above:Performed By: #### URTPCR #### [facility] [address] [place] [address] Dr. Ashley LunaCreatinine [Mass/Vol]1.68 mg/dLCritically high0.55-1.02The [facility] HospitalComment on above:Performed By: #### URTPCR #### [facility] [address] [address] [address] Ramirez ChangEGFR-AF XKNWTVMG87 mL/min/1.91e0Gddppnhgug low>=60The Protestant Hospitalment on above:Performed By: #### URTPCR #### [facility] [address] [address] [address] Ramirez ChangEGFR-NON AF PWOJKBFF63 mL/min/1.57i3Fepcdfeldt low>=60The [facility] HospitalComment on above:Performed By: #### URTPCR #### [facility] [address] [address] [address] Ashley LunaGlucose [Mass/Vol]265 mg/dLCritically hghz62-123Wtd Protestant Hospitalment on above:Performed By: #### URTPCR #### [facility] [address] [place] [address] Dr. Ashley LunaPotassium [Moles/Vol]4.3 mmol/LNormal3.5-5.1[facility] Comment on above:Performed By: #### URTPCR #### [facility] [address] [address] [address] Ashley LunaSodium [Moles/Vol]138 mmol/ODlkqno355-755Ixb [facility] Comment on above:Performed By: #### URTPCR #### [facility] [address] [address] [address] Ashley LunaUrea nitrogen [Mass/Vol]38.0 mg/dLCritically high7.0-18.0The [facility] HospitalComment on above:Performed By: #### URTPCR #### [facility] [address] [address] [address] Ashley LunaUrea nitrogen/Creatinine [Mass ratio]22.6 mg/mgNormalThe [facility] HospitalComment on above:Performed By: #### URTPCR #### [facility] [address] [address] [address] Ashley LunaVITAMIN D 25 OHon 76-38-3800SKL D 25-OH36.2 ng/mLNormalThe Thong HospitalComment on above:Performed By: #### URTPCR #### [facility] [address] [place] [address] Dr. Ashley NICHOLSON [facility] HospitalComment on above: Result Comment: <20 ng/mL Vit D deficient 20 - <30 ng/mL Vit D insufficient 30 - 100 ng/mL Vit D sufficient >100 ng/mL Potential ToxicityPerformed By: #### URTPCR #### [facility] [address] [place] [address] Dr. Ashley LunaPT INTACTon 76-54-6965FVY, Nxyirs73 pg/oSOidtow23-24Qch [facility] HospitalComment on above:Performed By: #### PTHINT #### [facility] [address] [place] [address] Dr. Ashley LunaHEMOGRAM AND PLATELon 67-87-1460Slejvbyzxa (Bld) [Volume fraction]32.9 %Critically low36.0-48.0The [facility] HospitalComment on above: Performed By: #### VITAD #### [facility] [address] [place] [address] Dr. Ashley LunaHemoglobin (Bld) [Mass/Vol]11.1 g/dLCritically low12.0-16.0The [facility] on above:Performed By: #### VITAD #### [facility] [address] [place] [address] Dr. Ashley Ruiz (RBC) [Entitic mass]33.4 xfSrgeql54.7-34.0[facility] on above:Performed By: #### VITAD #### [facility] [address] [place] [address] Dr. Ashley Ruiz (RBC) [Mass/Vol]33.7 g/bQHftiqq97.9-35.2The [facility] HospitalComment on above:Performed By: #### VITAD #### [facility] [address] [place] [address] Dr. Ashley Ruiz (RBC) [Entitic vol]99.1 fLCritically high81.0-99.0The [facility] HospitalComment on above:Performed By: #### VITAD #### [facility] [address] [place] [address] Dr. Ashley LunaPLT195 103/onGwrrcu053-029Sya [facility] HospitalComment on above: Performed By: #### VITAD #### [facility] [address] [place] [address] Dr. Ashley LunaRBC3.32 106/ulCritically low4.20-5.40The [facility] HospitalComment on above:Performed By: #### VITAD #### [facility] [address] [place] [address] Dr. Ashley LunaWBC7.6 103/ulNormal4.0-11.0The [facility] HospitalComment on above: Performed By: #### VITAD #### [facility] [address] [place] [address] Dr. Ashley LunaMAGNESIUMon 37-36-6658Wipfgglld [Mass/Vol]1.6 mg/dLCritically low 1.8-2.4The [facility] HospitalComment on above:Performed By: #### URIC, RENAL, MG #### [facility] [address] [place] [address] Dr. Ashley LunaRENMERLE FUNCTION PANELon 45-24-5922Qoyuukp [Mass/Vol]3.3 g/dL Critically low3.4-5.0The [facility] HospitalComment on above:Performed By: #### URIC, RENAL, MG #### [facility] [address] [place] [address] Dr. Ashely LunaCalcium [Mass/Vol]9.9 mg/dLNormal8.5-10.1The [facility] Comment on above:Performed By: #### URIC, RENAL, MG #### [facility] [address] [place] [address] Dr. Ashley LunaChloride [Moles/Vol]100 mmol/GSputbs92-152Ijs [facility] Comment on above:Performed By: #### URIC, RENAL, MG #### [facility] [address] [place] [address] Dr. Ashley LunaCO2 [Moles/Vol]28.4 mmol/VFyzqdx46.0-32.0The [facility] Comment on above:Performed By: #### URIC, RENAL, MG #### [facility] [address] [place] [address] Dr. Ashley LunaCreatinine [Mass/Vol]1.56 mg/dLCritically high0.55-1.02The [facility] HospitalComment on above:Performed By: #### URIC, RENAL, MG #### [facility] [address] [place] [address] Dr. Ashley NorwoodGFR-AF VNRVWMCD97 mL/min/1.59v5Verfohkfby low>=60The [facility] HospitalComment on above:Performed By: #### URIC, RENAL, MG #### [facility] [address] [place] [address] Dr. Ashley NorwoodGFR-NON AF XBRRPEYN06 mL/min/1.91c3Bdnqecfomu low>=60The [facility] HospitalComment on above:Performed By: #### URIC, RENAL, MG #### [facility] [address] [place] [address] Dr. Ashley LunaGlucose [Mass/Vol]197 mg/dLCritically funp69-553Kbz [facility] HospitalComment on above:Performed By: #### URIC, RENAL, MG #### [facility] [address] [place] [address] Dr. Ashley LunaPhosphate [Mass/Vol]3.5 mg/dLNormal2.6-4.7The [facility] Comment on above:Performed By: #### URIC, RENAL, MG #### [facility] [address] [place] [address] Dr. Ashley LunaPotassium [Moles/Vol]4.3 mmol/LNormal3.5-5.1The [facility] Comment on above:Performed By: #### URIC, RENAL, MG #### [facility] [address] [place] [address] Dr. Yilan ChangSodium [Moles/Vol]136 mmol/VGzrtoh734-054TuxDunlap Memorial Hospital Comment on above:Performed By: #### URIC, RENAL, MG #### [facility] [address] [address] [address] Ashley Dennis nitrogen [Mass/Vol]33.0 mg/dLCritically high7.0-18.0Dunlap Memorial HospitalComment on above:Performed By: #### URIC, RENAL, MG #### [facility] [address] [address] [address] Ashley Collins RANDOM W/MICROSCOPICon 64-96-1145FMZCNZQNCEAGHKvhwpnahLPBR SEENDunlap Memorial HospitalComment on above:Performed By: #### URTPCR #### [facility] [address] [place] [address] Dr. Ashley LunaBilirubin Ql (U)NegativeNormalNEGATIVEDunlap Memorial Hospital Comment on above:Performed By: #### URTPCR #### [facility] [address] [place] [address] Dr. Ashley LunaCASTJUDITHE SEENNormalNONE SEENDunlap Memorial HospitalComment on above:Performed By: #### URTPCR #### [facility] [address] [place] [address] Dr. Ashley Paganarity (U)CLEARNormalCLEARThe [facility] HospitalComment on above: Performed By: #### URTPCR #### [facility] [address] [place] [address] Dr. Ashley Mancuso (U)LT. YELLOWNormalYELLOWDunlap Memorial HospitalComment on above:Performed By: #### URTPCR #### [facility] [address] [address] [address] Ashley Ceballosystals LM Nom (Urine sed)NONE SEENNormalNONE SEENDunlap Memorial HospitalComment on above:Performed By: #### URTPCR #### [facility] [address] [place] [address] Dr. Ramirez ChangEpithelial cells LM Ql (Urine sed)NONE SEENNormalNONE SEEN /RARE The [facility] HospitalComment on above:Performed By: #### URTPCR #### [facility] [address] [place] [address] Dr. Ashley LunaGlucose Ql (U)NegativeNormalNEGATIVEDunlap Memorial HospitalComment on above:Performed By: #### URTPCR #### [facility] [address] [address] [address] Ashley LunaHemoglobin Ql (U)TRACE-INTACTAbnormalNEGATIVEDunlap Memorial HospitalComment on above:Performed By: #### URTPCR #### [facility] [address] [place] [address] Dr. Ashley LunaKetones Ql (U)NegativeNormalNEGATIVEDunlap Memorial HospitalComdetroit receiving hospital on above:Performed By: #### URTPCR #### [facility] [address] [place] [address] Dr. Ashley LunaLEUKOCYTESLARGEAbnormalNEGSelect Medical Specialty Hospital - Southeast OhioComment on above:Performed By: #### URTPCR #### [facility] [address] [place] [address] Dr. Ashley LunaMUCOUSNONE SEENNormalNONE SEENDunlap Memorial HospitalComdetroit receiving hospital on above:Performed By: #### URTPCR #### [facility] [address] [place] [address] Dr. Ashley LunaNitrite Ql (U)NegativeNormalNEGATIVEDunlap Memorial HospitalComment on above:Performed By: #### URTPCR #### [facility] [address] [place] [address] Dr. Ashley LunapH (U)7.0 [pH]Normal5-9Dunlap Memorial HospitalComdetroit receiving hospital on above: Performed By: #### URTPCR #### [facility] [address] [place] [address] Dr. Ashley LunaJozujKFV0-0Qojzsd4-6Gih Bellevue HospitalComment on above:Performed By: #### URTPCR #### [facility] [address] [place] [address] Dr. Ashley LunaSPEC GRAVITY1.951Kdwefg8.005-<=1.025The [facility] HospitalComment on above:Performed By: #### URTPCR #### [facility] [address] [place] [address] Dr. Ashley Collnis PROTEINNegativeNormalNEGATIVE/ TRACEThe [facility] Comment on above:Performed By: #### URTPCR #### [facility] [address] [place] [address] Dr. Ashley Martinez Qn (U)0.2 {Jaquan'U}/dLNormal0.2 - 1.0The [facility] HospitalComment on above:Performed By: #### URTPCR #### [facility] [address] [place] [address] Dr. Ashley LunaWBC5-10AbnormalNONE SEENThe [facility] HospitalComment on above: Performed By: #### URTPCR #### [facility] [address] [place] [address] Dr. Ashley Galarza ACID SERUMon [id number] [Mass/Vol]6.9 mg/dLCritically high2.6-6.0The [facility] HospitalComment on above:Performed By: #### URIC, RENAL, MG #### [facility] [address] [place] [address] Dr. Ashley Richard T PROTEIN CREAT RATIOon [id number] (U) [Mass/Vol] 25.6 mg/dLCritically high<=12.0The [facility] HospitalComment on above:Performed By: #### URTPCR #### [facility] [address] [place] [address] Dr. Ashley Hawkins PROT CREAT RAT0.53NormalThe [facility] HospitalComment on above: Performed By: #### URTPCR #### [facility] [address] [place] [address] Dr. Ashley Richard CREAT48.36 mg/wRWkysmy43.00-300.00The [facility] Comment on above:Performed By: #### URTPCR #### [facility] [address] [address] [address] Ashley LunaVITAMIN D 25 OHon [id number] D 25-OH35.7 ng/mLNSalem City HospitalComment on above:Performed By: #### VITAD #### [facility] [address] [address] [address] Ashley Schmidt [place]ES[place] [facility] HospitalComment on above: Result Comment: <20 ng/mL Vit D deficient 20 - <30 ng/mL Vit D insufficient 30 - 100 ng/mL Vit D sufficient >100 ng/mL Potential ToxicityPerformed By: #### VITAD #### [facility] [address] [address] [address] Ashley LunaComprehensive metabolic 2000 panelon 14-03-1710Nbnohtd [Mass/Vol] 4.0 g/dL3.9 - 4.9 g/dLTucson ClinicALP [Catalytic activity/Vol]27 U/LLow34 - 123 U/LCleveland ClinicALT [Catalytic activity/Vol]12 U/L7 - 38 U/LCleveland ClinicAnion gap [Moles/Vol]9 mmol/L9 - 18 mmol/LCleveland ClinicAST [Catalytic activity/Vol]12 U/LLow13 - 35 U/LCleveland ClinicBilirubin [Mass/Vol]0.3 mg/dL 0.2 - 1.3 mg/dLTucson ClinicCalcium [Mass/Vol]9.6 mg/dL8.5 - 10.2 mg/dL Baptiste ClinicChloride [Moles/Vol]101 mmol/L97 - 105 mmol/LCleveland ClinicCO2 [Moles/Vol]25 mmol/L22 - 30 mmol/LCleveland ClinicCreatinine [Mass/Vol]1.64 mg/dLHigh0.58 - 0.96 mg/dLPremier Health Miami Valley Hospital NorthEstimated Glomerular Filtration Rate31 mL/min/1.73mLow>=60 mL/min/1.73mCleveland ClinicGlucose [Mass/Vol]240 mg/dLHigh 74 - 99 mg/dLPremier Health Miami Valley Hospital NorthPotassium [Moles/Vol]4.1 mmol/L3.7 - 5.1 mmol/L [facility] NorthProtein [Mass/Vol]6.2 g/dLLow6.3 - 8.0 g/dLPremier Health Miami Valley Hospital North Sodium [Moles/Vol]135 mmol/PUfn852 - 144 mmol/LCleveland Hendricks Community HospitalUrea nitrogen [Mass/Vol]31 mg/dLHigh7 - 21 mg/dLPremier Health Miami Valley Hospital NorthFERRITIN BLDon 07-08-2022 Ferritin [Mass/Vol]307.0 ng/gQPkfr05.7 - 205.1 ng/mLCleveland ClinicIron and Iron binding capacity panelon 06-96-2655Cgte [Mass/Vol]112 ug/dL41 - 186 ug/dL [facility] NorthIron binding capacity [Mass/Vol]322 ug/dL232 - 386 ug/dL [facility] NorthIron/TIBC [Molar ratio]34.8 %15.0 - 57.0 %[facility] NorthMRI LSPINE WO CONon 35-74-4345MCL [facility] WO CONEXAMINATION: MRI [facility] WO CON HISTORY: Low back pain , [...] authenticated by: MERRILL KHAN Date: 2022-05-16 07:56NormalThe [facility] HospitalPTH INTACTon [id number], Ppibje54 pg/rBWebvkz07-19Nff [facility] HospitalComment on above:Performed By: #### URTPCR #### [facility] [address] [address] [address] Ashley Schmidt 25-OH LABCORPon [id number] D, 25-Fxjxnhs26.1 ng/mL Pdngnc96.0-100.0The [facility] on above:Result Comment: Vitamin D deficiency has been defined by the [place] of [employer] and an Endocrine Society practice guideline as a level of serum 25-OH vitamin D less than 20 ng/mL (1,2). The Endocrine Society went on to further define vitamin D insufficiency as a level between 21 and 29 ng/mL (2). 1. IOM ([place] of [employer]). 2010. Dietary reference intakes for calcium and D. [place]: The National Academies Press. 2. Casey MF, Constantino NC, Lauro NG, et al. Evaluation, treatment, and prevention of vitamin D deficiency: an Endocrine Society clinical practice guideline. JCEM. 2010; 96(7):1911-30.Performed By: #### VITADLC #### [facility] [address] [address] [address] Ashley LunaHEMOGRAM AND PLATELon 65-99-8820Wxdnqekrar (Bld) [Volume fraction]35.7 %Critically low36.0-48.0The [facility] HospitalComment on above: Performed By: #### HH #### [facility] [address] [place] [address] Dr. Ashley LunaHemoglobin (Bld) [Mass/Vol]11.6 g/dLCritically low12.0-16.0The [facility] HospitalComment on above:Performed By: #### HH #### [facility] [address] [place] [address] Dr. Ashley RuizH (RBC) [Entitic mass]33.3 xaDsitpm87.7-34.0The [facility] HospitalComment on above:Performed By: #### HH #### [facility] [address] [place] [address] Dr. Ashley RuizHC (RBC) [Mass/Vol]32.5 g/lPQrygaa26.9-35.2The [facility] HospitalComment on above:Performed By: #### HH #### [facility] [address] [place] [address] Dr. Ashley RuizV (RBC) [Entitic vol]102.6 fLCritically high81.0-99.0The [facility] HospitalComment on above:Performed By: #### HH #### [facility] [address] [place] [address] Dr. Ashley LunaPLT240 103/jlRgzmvq154-830Way [facility] HospitalComment on above: Performed By: #### HH #### [facility] [address] [place] [address] Dr. Ashley LunaRBC3.48 106/ulCritically low4.20-5.40The [facility] HospitalComment on above:Performed By: #### HH #### [facility] [address] [place] [address] Dr. Ashley LunaWBC5.0 103/ulNormal4.0-11.0The [facility] HospitalComment on above: Performed By: #### HH #### [facility] [address] [address] [address] Ashley LunaMAGNESIUMon 65-46-0765Jnweyfwvh [Mass/Vol]1.8 mg/dLNormal1.8-2.4 The [facility] HospitalComment on above:Performed By: #### URTPCR #### [facility] [address] [place] [address] Dr. Ashley LunaRENAL FUNCTION PANELon 88-22-7264Svobcfc [Mass/Vol]3.4 g/dLNormal 3.4-5.0The [facility] HospitalComment on above:Performed By: #### URTPCR #### [facility] [address] [place] [address] Dr. Ashley LunaCalcium [Mass/Vol]9.4 mg/dLNormal8.5-10.1The [facility] Comment on above:Performed By: #### URTPCR #### [facility] [address] [place] [address] Dr. Ashley LunaChloride [Moles/Vol]103 mmol/PSzazkd29-613Lqx [facility] Comment on above:Performed By: #### URTPCR #### [facility] [address] [place] [address] Dr. Ashley LunaCO2 [Moles/Vol]27.8 mmol/YLcduvr56.0-32.0The [facility] Comment on above:Performed By: #### URTPCR #### [facility] [address] [place] [address] Dr. Ashley LunaCreatinine [Mass/Vol]1.67 mg/dLCritically high0.55-1.02The [facility] HospitalComment on above:Performed By: #### URTPCR #### [facility] [address] [place] [address] Dr. Ramirez ChangEGFR-AF EXTJVPBQ37 mL/min/1.88a5Fttznnnbvv low>=60The [facility] HospitalComment on above:Performed By: #### URTPCR #### [facility] [address] [address] [address] Ashley NorwoodGFR-NON AF NEXXGLUB37 mL/min/1.05o1Vssljmshwv low>=60The [facility] HospitalComment on above:Performed By: #### URTPCR #### [facility] [address] [address] [address] Ashley LunaGlucose [Mass/Vol]152 mg/dLCritically wvwf15-680Qar [facility] HospitalComment on above:Performed By: #### URTPCR #### [facility] [address] [address] [address] Ashley LunaPhosphate [Mass/Vol]3.5 mg/dLNormal2.6-4.7The [facility] Comment on above:Performed By: #### URTPCR #### [facility] [address] [place] [address] Dr. Ashley LunaPotassium [Moles/Vol]4.3 mmol/LNormal3.5-5.1[facility] Comment on above:Performed By: #### URTPCR #### [facility] [address] [address] [address] Ashley LunaSodium [Moles/Vol]139 mmol/WMdsrtb345-528XveDunlap Memorial Hospital Comment on above:Performed By: #### URTPCR #### [facility] [address] [address] [address] Ashley LunaUrea nitrogen [Mass/Vol]41.0 mg/dLCritically high7.0-18.0The [facility] HospitalComment on above:Performed By: #### URTPCR #### [facility] [address] [place] [address] Dr. Ashley LunaUA RANDOM W/MICROSCOPICon [id number]F SEENThe [facility] HospitalComment on above:Performed By: #### UAMIC #### [facility] [address] [place] [address] Dr. Ashley LunaBilirubin Ql (U)NegativeNormalNEGATIVEThe [facility] Comment on above:Performed By: #### UAMIC #### [facility] [address] [address] [address] Ashley CabezasNONKrysta SEENNormalNONE SEENDunlap Memorial HospitalComment on above:Performed By: #### UAMIC #### [facility] [address] [place] [address] Dr. Ashley Busch (U)CLEARNormalCLEARDunlap Memorial HospitalComment on above: Performed By: #### UAMIC #### [facility] [address] [address] [address] Ashley Mancuso (U)LT. YELLOWNormalYELLOWDunlap Memorial HospitalComment on above:Performed By: #### UAMIC #### [facility] [address] [place] [address] Dr. Ashley LunaCrystals LM Nom (Urine sed)NONE SEENNormalNONE SEENDunlap Memorial HospitalComment on above:Performed By: #### UAMIC #### [facility] [address] [place] [address] Dr. Ashley Norwoodpithelial cells LM Ql (Urine sed)FEWAbnormalNONE SEEN /RAREThe [facility] HospitalComment on above:Performed By: #### UAMIC #### [facility] [address] [place] [address] Dr. Ashley LunaGlucose Ql (U)NegativeNormalNEGATIVEDunlap Memorial HospitalComdetroit receiving hospital on above:Performed By: #### UAMIC #### [facility] [address] [place] [address] Dr. Ashley LunaHemoglobin Ql (U)TRACE-INTACTAbnormalNEGATIVEDunlap Memorial HospitalComment on above:Performed By: #### UAMIC #### [facility] [address] [place] [address] Dr. Ashley LunaKetones Ql (U)NegativeNormalNEGATIVEDunlap Memorial HospitalComment on above:Performed By: #### UAMIC #### [facility] [address] [place] [address] Dr. Ashley LunaLEUKOCYTESMODERATEAbnormalNEGATIVEDunlap Memorial HospitalComment on above:Performed By: #### UAMIC #### [facility] [address] [address] [address] Ashley McleanCOUSNONE SEENNormalNONE SEENDunlap Memorial HospitalComment on above:Performed By: #### UAMIC #### [facility] [address] [place] [address] Dr. Ashley Yang Ql (U)PositiveAbnormalNEGATIVEThe [facility] Comment on above:Performed By: #### UAMIC #### [facility] [address] [place] [address] Dr. Ashley LunapH (U)5.5 [pH]Normal5-9The [facility] HospitalComment on above: Performed By: #### UAMIC #### [facility] [address] [place] [address] Dr. Ashley LunaJxxxaJQE4-5Piopczsw1-5Rnz [facility] HospitalComment on above:Performed By: #### UAMIC #### [facility] [address] [place] [address] Dr. Ashley LunaSPEC GRAVITY1.254Ktobsv6.005-<=1.025The [facility] HospitalComment on above:Performed By: #### UAMIC #### [facility] [address] [place] [address] Dr. Ashley Collins PROTEINNegativeNormalNEGATIVE/ TRACEThe [facility] Comment on above:Performed By: #### UAMIC #### [facility] [address] [place] [address] Dr. Ashley Almendarezbilinogen Qn (U)0.2 {Jaquan'U}/dLNormal0.2 - 1.0The [facility] HospitalComment on above:Performed By: #### UAMIC #### [facility] [address] [place] [address] Dr. Ashley LunaYalouFPC74-968GxfhvjzjYPOZ SEENThe [facility] HospitalComment on above: Performed By: #### UAMIC #### [facility] [address] [place] [address] Dr. Ashley LunaURIC ACID SERUMon 55-40-6938Gxdba [Mass/Vol]7.3 mg/dLCritically high2.6-6.0[facility] HospitalComment on above:Performed By: #### URTPCR #### [facility] [address] [address] [address] Ashley Richard T PROTEIN CREAT RATIOon 24-44-7800Ztcreoh (U) [Mass/Vol] 14.6 mg/dLCritically high<=12.0The [facility] HospitalComment on above:Performed By: #### URTPCR #### [facility] [address] [address] [address] Ashley Hawkins PROT CREAT RAT0.26NoalThParkview HealthComment on above: Performed By: #### URTPCR #### [facility] [address] [address] [address] Ashley Richard CREAT56.96 mg/aAHyblrl68.00-300.00The [facility] Comment on above:Performed By: #### URTPCR #### [facility] [address] [address] [address] Ashley Luna Vital Signs Date TimeVital SignValuePerforming ZiboenyztJvcfikzm60-18-9801 11:040Body zcaopl920.6 cmChrlaron Ward DPM Work Phone: [facility] HospitalBgdzvmyszs90-77-8953 11:040Body mass index (BMI) [Ratio]25.82 kg/k4Pnqnbwbazlivesta Ward DPM Work Phone: [facility] HospitalTkmylsvnuc58-17-0472 11:040Body .58 kgChvesta Ward DPM Work Phone: [facility] HospitalObtvymyeji46-38-6695 11:040Diastolic blood flexunhw92 mm[Hg]Chantal Ward DPM Work Phone: [facility] HospitalEoirqcjxaw50-79-6192 11:040Heart rate77 /min Chantal Ward DPM Work Phone: [facility] HospitalGcnsdzefeq70-48-6572 11:17-0400Systolic blood hwymtxea020 mm[Hg]Chantal Ward DPM Work Phone: [facility] HospitalNzuksyodot63-97-9486 10:39-0400Body zdztgy137.02 cmBenjamin Ball DO Work Phone: [facility]09-17-2025 10:39-0400 Body mass index (BMI) [Ratio]26 kg/k1Ohydwvdq Ball DO Work Phone: [phone]09-17-2025 10:39-0400 Body .67 kgBenjamin Ball DO Work Phone: [phone]09-17-2025 10:39-0400 Diastolic blood hfkhrubz90 mm[Hg]Alex Ball DO Work Phone: [phone]09-17-2025 10:39-0400 Heart rate78 /minBenjamin Ball DO Work Phone: [phone]09-17-2025 10:39-0400 Respiratory rate12 /minBenjamin Ball DO Work Phone: [phone]09-17-2025 10:39-0400 Systolic blood xoorvrpm670 mm[Hg]Alex Ball DO Work Phone: [phone]08-08-2025 11:21-0400 Body osbvph167.6 Liat Ward DPM Work Phone: [facility] HospitalEunygiscph31-65-6927 11:21-0400Body mass index (BMI) [Ratio]25.82 kg/f6Ejsxdijkuhovesta Ward DPM Work Phone: [facility] HospitalGyfuhonxtb26-60-7053 11:21-0400Body xfveow88.58 kgChvesta Ward DPM Work Phone: [facility] HospitalRxcdjrfqqy37-32-6168 11:21-0400Diastolic blood dvkxvrij00 mm[Hg]Chantal Ward DPM Work Phone: [facility] HospitalZgcagihiuu00-08-0300 11:21-0400Heart rate75 /min Chantal Ward DPM Work Phone: NOGold[facility] HospitalEzsgxsglpu88-85-5897 11:21-0400Systolic blood zsoyohue494 mm[Hg]Chantal Ward DPM Work Phone: [facility] HospitalMbwzkrhekr73-66-2053 14:35-0400Body zdcnba963.4 cmMaranda Schmid APRN.SPREADER OPERATOR Work Phone: [facility]07-28-2025 14:35-0400Body mass index (BMI) [Ratio]28.85 kg/e7QcotvMaranda Schmid APRN.SPREADER OPERATOR Work Phone: [facility]07-28-2025 14:35-0400Body temperature 98.01 [degF]Maranda Schmid APRN.SPREADER OPERATOR Work Phone: [facility]07-28-2025 14:35-0400Body gwazux84 kg Maranda Schmid APRN.SPREADER OPERATOR Work Phone: [facility]07-28-2025 14:35-0400Diastolic blood wvebvfmd60 mm[Hg]Maranda Schmid APRN.SPREADER OPERATOR Work Phone: [facility]07-28-2025 14:35-0400Heart rate82 /min Maranda Schmid APRN.SPREADER OPERATOR Work Phone: [facility]07-28-2025 14:35-0400Respiratory rate 16 /minMaranda Schmid APRN.SPREADER OPERATOR Work Phone: [facility]07-28-2025 14:35-4207SbH6% (BldA) [Mass fraction]95 %Maranda Schmid APRN.SPREADER OPERATOR Work Phone: [facility]07-28-2025 14:35-0400Systolic blood oqbqfcvg387 mm[Hg]Maranda Schmid APRN.SPREADER OPERATOR Work Phone: [facility]06-06-2025 11:23-0400Body aaicrm693.6 cmChristholly Ward DPM Work Phone: [facility] HospitalXulrtepauo13-03-5914 11:23-0400Body mass index (BMI) [Ratio]25.82 kg/c5Weuhiqmjxfs Bohach DPM Work Phone: [facility] HospitalRwtnvpqyka55-85-7330 11:23-0400Body .58 kgChristopher Bohach DPM Work Phone: [facility] HospitalSfovmrajrk50-26-6061 11:23-0400Diastolic blood eckymmmm26 mm[Hg]Christopher Bohach DPM Work Phone: [facility] HospitalGivwwfacze43-69-3905 11:23-0400Heart rate72 /min Christopher Bohach DPM Work Phone: [facility] HospitalUjmbooopqh36-76-8910 11:23-0400Systolic blood mm[Hg]Christmonier Bohach DPM Work Phone: [facility] HospitalUsnoryqnut67-93-4607 09:30-0400Body mass index (BMI) [Ratio]29.41 kg/b0OwhgsMaranda Schmid APRN.SPREADER OPERATOR Work Phone: [facility]05-06-2025 09:30-0400Body temperature 97.5 [degF]Maranda Schmid APRN.SPREADER OPERATOR Work Phone: [facility]05-06-2025 09:30-0400Body .3 kgaMranda Schmid APRN.SPREADER OPERATOR Work Phone: [facility]05-06-2025 09:30-0400Diastolic blood mmxnekfq89 mm[Hg]Maranda Schmid APRN.SPREADER OPERATOR Work Phone: [facility]05-06-2025 09:30-0400Heart rate74 /min Maranda Schmid APRN.SPREADER OPERATOR Work Phone: [facility]05-06-2025 09:30-0400Respiratory rate 16 /minMaranda Schmid APRN.SPREADER OPERATOR Work Phone: [facility]05-06-2025 09:30-1629OeM9% (BldA) [Mass fraction]95 %Maranda Schmid APRN.SPREADER OPERATOR Work Phone: [facility]05-06-2025 09:30-0400Systolic blood mm[Hg]Maranda Schmid APRN.SPREADER OPERATOR Work Phone: [facility]04-21-2025 16:01-0400Body slermv376.02 cmAs[facility]04-21-2025 16:01-0400Body mass index (BMI) [Ratio]27.6 kg/l2QksxitmviAshtabula General Hospital04-21-2025 16:01-0400Body kkhebh45.76 kgAshtabula General Hospital04-21-2025 16:01-0400Diastolic blood gbuzvejk01 mm[Hg][facility]04-21-2025 16:01-0400 Heart rate80 /[facility]04-21-2025 16:01-0400 Respiratory rate16 /[facility]04-21-2025 16:01-0400 Systolic blood sqxsyijw730 mm[Hg][facility]04-03-2025 14:55-0400Body aadazr151.6 cmChristholly Ward DPM Work Phone: [facility] HospitalQoohiqmdwp99-57-3890 14:55-0400Body mass index (BMI) [Ratio]25.82 kg/d8Yfgenxnmqcs Bohach DPM Work Phone: [facility] HospitalShvycdbyzy09-69-2628 14:55-0400Body psckes26.58 kgChristopher Bohach DPM Work Phone: [facility] HospitalZcuakjacpy26-27-2484 14:55-0400Heart rate81 /min Christholly Ward DPM Work Phone: [facility] HospitalJulveawfsp56-90-1498 10:33-0400Body bfhnoi418.02 cmAs[facility]03-12-2025 10:33-0400Body mass index (BMI) [Ratio]27.6 kg/y8HjbiuiofvAshtabula General Hospital03-12-2025 10:33-0400Body jopfjg26.76 kgAshtabula General Hospital03-12-2025 10:33-0400Diastolic blood fdbwxezk83 mm[Hg][facility]03-12-2025 10:33-0400 Heart rate81 /[facility]03-12-2025 10:33-0400 Respiratory rate12 /[facility]03-12-2025 10:33-0400 Systolic blood fiekwlvm365 mm[Hg][facility]01-30-2025 11:51-0500Body irobck178 cmCistophemily Ward DPM Work Phone: [phone] [place], [place] [address]01-30-2025 11:51-0500Body mass index (BMI) [Ratio]28.34 kg/y7Zjngmgonbrl Bohach DPM Work Phone: [phone] [place], [place] [address]01-30-2025 11:51-0500Body ickzag34.58 kgChristopher Bohach DPM Work Phone: [phone])7-[facility] HospitalThlwemurnj65-14-7721 11:51-0500Diastolic blood nmiofknn09 mm[Hg]Chantal Ward DPM Work Phone: [phone])[facility] HospitalRfcyzdwcqu26-08-2338 11:51-0500Heart rate70 /min Chantal Ward DPM Work Phone: [phone])[facility] HospitalGfuhpfavkc93-68-3718 11:51-0500Systolic blood mm[Hg]Chantal Ward DPM Work Phone: [phone])4-[facility] HospitalAedgzswzul35-02-8371 10:12-0500Body uhseyl798.6 cmChristholly Bohach DPM Work Phone: [phone] [place], [place] [address]Qmrsoqxfyb01-90-0985 10:12-0500Body mass index (BMI) [Ratio]25.82 kg/r0Aecdddwnbed Bohach DPM Work Phone: [phone] [place], [place] [address]Npdgfisdkv41-14-5998 10:12-0500Body qugkmc86.58 kgChristopher Caputojustin DPM Work Phone: [facility] HospitalBaqwxscswt38-06-2961 10:12-0500Diastolic blood svjwlast95 mm[Hg]Chantal Ward DPM Work Phone: [address] [address]Rmbihmvgmx41-53-5511 10:12-0500Heart rate65 /min Chantal Ward DPM Work Phone: [address] [address]Fhkiekiolx07-58-1022 10:12-0500Systolic blood mm[Hg]Chantal Ward DPM Work Phone: [facility] HospitalZsheibgezj06-82-6265 14:43-0500Body mass index (BMI) [Ratio]29.92 kg/x9HsnysMaranda Schmid APRN.SPREADER OPERATOR Work Phone: [facility]11-14-2024 14:43-0500Body temperature 97.59 [degF]Maranda Schmid APRN.SPREADER OPERATOR Work Phone: [facility]11-14-2024 14:43-0500Body dyxbfi77.5 kgMaranda Schmid APRN.SPREADER OPERATOR Work Phone: [facility]11-14-2024 14:43-0500Diastolic blood mm[Hg]Mraanda Schmid APRN.SPREADER OPERATOR Work Phone: [facility]11-14-2024 14:43-0500Heart rate86 /min Maranda Shcmid APRN.SPREADER OPERATOR Work Phone: [facility] [facility]11-14-2024 14:43-0500Respiratory rate 18 /minMaranda Schmid APRN.SPREADER OPERATOR Work Phone: [facility]11-14-2024 14:43-0397VaJ2% (BldA) [Mass fraction]95 %Maranda Schmid APRN.SPREADER OPERATOR Work Phone: [facility]11-14-2024 14:43-0500Systolic blood nugrjegr343 mm[Hg]Maranda Schmid APRN.SPREADER OPERATOR Work Phone: [facility]09-23-2024 11:38-0400Body wrurdz528.02 [facility] 11:38-0400Body mass index (BMI) [Ratio]27.1 kg/x5HcjsqozkaAshtabula [facility] Hospital09-23-2024 11:38-0400Body vvdxhhusypp53.4 [degF][facility]09-23-2024 11:38-0400Body .39 kg[facility]09-23-2024 11:38-0400Diastolic blood mjaquros78 mm[Hg][facility]09-23-2024 11:38-0400 Heart rate67 /[facility]09-23-2024 11:38-0400 Respiratory rate16 /[facility]09-23-2024 11:38-0400 SaO2% (BldA) [Mass fraction]97 %[facility]09-23-2024 11:38-0400Systolic blood mafsmagf890 mm[Hg][facility] 07-09-2024 10:58-0400Body cmChristholly Ward DPM Work Phone: [facility]Vwpejdvxso66-97-7930 10:58-0400Body mass index (BMI) [Ratio]28.34 kg/w7Ippctvtucax Bohach DPM Work Phone: [facility] HospitalIelpzpkubo51-12-2554 10:58-0400Body imnzyi25.58 kgChristopher Ward DPM Work Phone: [facility] HospitalMnnqyfyvqw81-43-4092 10:58-0400Diastolic blood nlvzdymg50 mm[Hg]Chantal Ward DPM Work Phone: [facility] HospitalYethpcmzio38-03-0564 10:58-0400Heart rate73 /min Chantal Ward DPM Work Phone: [facility] HospitalFjypyhzrrt37-35-4717 10:58-0400Systolic blood weimtscx293 mm[Hg]Chantal Ward DPM Work Phone: [facility] HospitalTdnombfjty88-54-9100 11:10-0400Body .02 [facility]08-16-2024 11:10-0400Body mass index (BMI) [Ratio]27.3 kg/g3HcvspxafaAshtabula General Hospital08-16-2024 11:10-0400Body lnyypf13.85 kg[facility]08-16-2024 11:10-0400Diastolic blood zsakbgpp75 mm[Hg][facility]08-16-2024 11:10-0400 Heart rate71 /[facility]08-16-2024 11:10-0400 Respiratory rate12 /[facility]08-16-2024 11:10-0400 Systolic blood xawimmyh972 mm[Hg][facility]05-09-2024 13:07-0400Body hvyyxf944.4 cmAtif Yousif MD Work Phone: [facility]05-09-2024 13:07-0400Body mass index (BMI) [Ratio]29.88 kg/u1SmfmeAtif Yousif MD Work Phone: [facility]05-09-2024 13:07-0400Body temperature 97.81 [degF]Atif Yousif MD Work Phone: [facility]05-09-2024 13:07-0400Body whvodp83.4 kgAtif Yousif MD Work Phone: [facility]05-09-2024 13:07-0400Diastolic blood pckoyeek91 mm[Hg]Atif Yousif MD Work Phone: [facility]05-09-2024 13:07-0400Heart rate70 /min Atif Yousif MD Work Phone: [facility]05-09-2024 13:07-0400Respiratory rate 16 /minAtif Yousif MD Work Phone: [facility]05-09-2024 13:07-3763RvS4% (BldA) [Mass fraction]96 %Atif Yousif MD Work Phone: [facility]05-09-2024 13:07-0400Systolic blood omosegii060 mm[Hg]Atif Yousif MD Work Phone: [facility]02-20-2024 10:31-0500Body .02 [facility]02-20-2024 10:31-0500Body mass index (BMI) [Ratio]27.3 kg/k6EjridgftcAshtabula General Hospital02-20-2024 10:31-0500Body ndzrixijppd61.1 [degF][facility]02-20-2024 10:31-0500Body edybwc72.85 kgAs[facility]02-20-2024 10:31-0500Diastolic blood fkiqzmkx12 mm[Hg][facility]02-20-2024 10:31-0500 Heart rate68 /[facility]02-20-2024 10:31-0500 Respiratory rate16 /[facility]02-20-2024 10:31-0500 SaO2% (BldA) [Mass fraction]98 %[facility]02-20-2024 10:31-0500Systolic blood neleegth914 mm[Hg][facility] 11-27-2023 11:07-0500Body xbwums035 cmChrlaron Ward DPM Work Phone: [facility] HospitalEoqfosvhvr78-51-0915 11:07-0500Body mass index (BMI) [Ratio]28.34 kg/l1Vwdtyeyoxou Ed DPM Work Phone: [facility] HospitalJgmjwxikbz92-51-2467 11:07-0500Body rewlmp38.58 kgChvesta Ward DPM Work Phone: [facility] HospitalNwyjxpmrbk73-03-9419 11:07-0500Diastolic blood ogfcrdpl94 mm[Hg]Chantal Ward DPM Work Phone: [facility] HospitalDamzsrrhwo59-53-6850 11:07-0500Heart rate71 /min Chantal Ward DPM Work Phone: [facility] HospitalLznilyuqve18-75-8844 11:07-0500Respiratory rate18 /minChristopher Bohach DPM Work Phone: [facility] HospitalJiqxibzdxl17-54-5229 11:07-0500Systolic blood pxvagwnb002 mm[Hg]Chantal Ward DPM Work Phone: [facility] HospitalVviraoendd58-92-2872 10:00-0500Body imwokp098.02 cm[facility]11-30-2023 10:00-0500Body ryymdq90.85 kg [facility]11-30-2023 10:00-0500Diastolic blood anffyxkj05 mm[Hg][facility]11-30-2023 10:00-0500Systolic blood vtenjsug073 mm[Hg][facility]08-30-2023 10:30-0400Body hxcaus911.02 cmBenjamin Ball Other [employer] Other 08-30-2023 10:30-0400Body mass index (BMI) [Ratio] 27.28 kg/c5Kzfwwzpf Ball Other [employer] Other 08-30-2023 10:30-0400Body enwafz77.85 kgBenjamin Ball Other [employer] Other 08-30-2023 10:30-0400Diastolic blood cvurzsep29 mm[Hg] Alex Ball Other [employer] Other 08-30-2023 10:30-0400Respiratory rate12 /minBenjamin Ball Other [employer] Other 08-30-2023 10:30-0400Systolic blood wlbycwlz184 mm[Hg] Alex Ball Other [employer] Other 08-10-2023 10:20-0400Body zwsvko304.02 cmAbdul Dolores Other [employer] Other 08-10-2023 10:20-0400Body mass index (BMI) [Ratio] 28.34 kg/a5Hzrny Dolores Other [employer] Other 08-10-2023 10:20-0400Body byuhlzondhm64.1 [degF]Mir Dolores Other [employer] Other 08-10-2023 10:20-0400Body bzeeaw60.58 kgAbdul Dolores Other [employer] Other 08-10-2023 10:20-0400Diastolic blood utlcqhnc15 mm[Hg] Mir Dolores Other [employer] Other 08-10-2023 10:20-0400Respiratory rate16 /minAbdul Dolores Other [facility] Other 08-10-2023 10:20-4262WzV2% (BldA) [Mass fraction]98 % Mir Dolores Other [employer] Other 08-10-2023 10:20-0400Systolic blood iyvegadg957 mm[Hg] Mir Dolores Other [employer] Other 07-13-2023 14:23-0400Body jinyxs636.4 cmAtif Yousif MD Work Phone: [facility]07-13-2023 14:23-0400Body temperature 97.11 [degF]Atif Yousif MD Work Phone: [facility]07-13-2023 14:23-0400Diastolic blood mm[Hg]Atif Yousif MD Work Phone: [facility]07-13-2023 14:23-0400Heart rate84 /min Atif Yousif MD Work Phone: [facility]07-13-2023 14:23-0400Respiratory rate 16 /minAtif Yousif MD Work Phone: [facility]07-13-2023 14:23-6040KpY8% (BldA) [Mass fraction]94 %Atif Yousif MD Work Phone: [facility]07-13-2023 14:23-0400Systolic blood xjjhurjn720 mm[Hg]Atif Yousif MD Work Phone: [facility]05-30-2023 10:30-0400Body .02 cmBenjamin Ball Other [employer] Other 05-30-2023 10:30-0400Body mass index (BMI) [Ratio] 27.54 kg/a0Kdgaxozg Ball Other [employer] Other 05-30-2023 10:30-0400Body ceuqik67.53 kgBenjamin Ball Other [employer] Other 05-30-2023 10:30-0400Diastolic blood yoxqcehs12 mm[Hg] Alex Ball Other [employer] Other 05-30-2023 10:30-0400Respiratory rate12 /minBenjamin Ball Other [employer] Other 05-30-2023 10:30-0400Systolic blood uojnqpdi332 mm[Hg] Alex Ball Other [employer] Other 05-01-2023 14:00-0400Body xjawxr226.02 cmBebryant [employer] Other [employer] Other 05-01-2023 14:00-0400Body mass index (BMI) [Ratio] 27.54 kg/k9Rrurjvgl [employer] Other [employer] Other 05-01-2023 14:00-0400Body aozqtx42.53 kgBebryant [employer] Other [employer] Other 04-20-2023 09:29-0400Body slvkef232.4 cmAtif Yousif MD Work Phone: [facility]04-20-2023 09:29-0400Body temperature 97.59 [degF]Atif Yousif MD Work Phone: [facility]04-20-2023 09:29-0400Diastolic blood mm[Hg]Atif Yousif MD Work Phone: [facility]04-20-2023 09:29-0400Heart rate77 /min Atif Yousif MD Work Phone: [facility]04-20-2023 09:29-0400Respiratory rate 16 /minAtif Yousif MD Work Phone: [facility]04-20-2023 09:29-2351KgH6% (BldA) [Mass fraction]99 %Atif Yousif MD Work Phone: [facility]04-20-2023 09:29-0400Systolic blood vgcwvyjm608 mm[Hg]Atif Yousif MD Work Phone: [facility]03-09-2023 14:06-0500Diastolic blood mm[Hg]Mikey Holden [facility]03-09-2023 14:06-0500Heart rate73 /minZagurjit Zumbar [facility]03-09-2023 14:06-0500Mean blood fiupvbmi581 mm[Hg]Mikey Holden [facility]03-09-2023 14:06-0500 Respiratory rate16 /minMikey Holden [facility]03-09-2023 14:06-0500 Systolic blood rwuqqucs960 mm[Hg]Mikey Holden [facility]03-08-2023 09:42-0500 Diastolic blood xgaehksu36 mm[Hg]Lab[facility] [place] Work Phone: [facility]03-08-2023 09:42-0500Heart rate69 /min Lab/ARCs[place] Work Phone: [facility]03-08-2023 09:42-0500Respiratory rate 18 /minLab/[facility] [place] Work Phone: [facility]03-08-2023 09:42-0228EpI3% (BldA) [Mass fraction]97 %[facility] [place] Work Phone: [facility]03-08-2023 09:42-0500Systolic blood mm[Hg][facility] [place] Work Phone: [facility]02-27-2023 10:00-0500Body .02 cmBenjamin Ball Other [employer] Other 02-27-2023 10:00-0500Body mass index (BMI) [Ratio] 28.34 kg/b0Xbotujng Ball Other [employer] Other 02-27-2023 10:00-0500Body ogryai88.58 kgBenjamin Ball Other [employer] Other 02-27-2023 10:00-0500Diastolic blood acpymxfr16 mm[Hg] Alex Nix Other [employer] Other 02-27-2023 10:00-0500Respiratory rate12 /minBenjajaney Nix Other [employer] Other 02-27-2023 10:00-0500Systolic blood jazpgaqk265 mm[Hg] Alex Nix Other [employer] Other 02-08-2023 10:20-0500Body zhbjoc266.02 cmAbdul Dolores Other [employer] Other 02-08-2023 10:20-0500Body mass index (BMI) [Ratio] 28.34 kg/d9Fnsaf Dolores Other [employer] Other 02-08-2023 10:20-0500Body tqgtetovcdi39.4 [degF]Mir Dolores Other [employer] Other 02-08-2023 10:20-0500Body uflkfp21.58 kgAbdul Dolores Other [employer] Other 02-08-2023 10:20-0500Diastolic blood wxqqbwat69 mm[Hg] Mir Dolores Other [employer] Other 02-08-2023 10:20-0500Respiratory rate18 /minAbdul Dolores Other [employer] Other 02-08-2023 10:20-2978NcS2% (BldA) [Mass fraction]97 % Mir Dolores Other [employer] Other [id number] 10:20-0500Systolic blood mm[Hg] Mir Amin Other [facility] [employer] Other [id number] 14:26-0500Body urwomg785.4 cmAtif Yousif MD Work Phone: [facility]01-23-2023 14:26-0500Body temperature 97.39 [degF]Atif Yousif MD Work Phone: [facility]01-23-2023 14:26-0500Body .85 kgAtif Yousif MD Work Phone: [facility]01-23-2023 14:26-0500Diastolic blood hmisznzj77 mm[Hg]Atif Yousif MD Work Phone: [facility]01-23-2023 14:26-0500Heart rate84 /min Atif Yousif MD Work Phone: [facility]01-23-2023 14:26-0500Respiratory rate 16 /minAtif Yousif MD Work Phone: [facility]01-23-2023 14:26-0952SiF1% (BldA) [Mass fraction]94 %Atif Yousif MD Work Phone: [facility]01-23-2023 14:26-0500Systolic blood ijrqsqbo185 mm[Hg]Atif Yousif MD Work Phone: [facility]12-22-2022 10:31-0500Diastolic blood kbbhaoka92 mm[Hg]Mikey Holden [facility]12-22-2022 10:31-0500Heart rate77 /minZagurjit Holden [facility]12-22-2022 10:31-0500Mean blood mm[Hg]Mikey Holden [facility]12-22-2022 10:31-0500 Respiratory rate12 /minZagurjit Holden [facility]12-22-2022 10:31-0500 Systolic blood kazaajoc552 mm[Hg]Mikey Holden [facility]11-28-2022 14:50-0500Body gadplv464.4 cmMaranda Schmid APRN.SPREADER OPERATOR Work Phone: [facility]11-28-2022 14:50-0500Body temperature 97.39 [degF]Maranda Schmid APRN.SPREADER OPERATOR Work Phone: [facility]11-28-2022 14:50-0500Body .58 kgMaranda Schmid APRN.SPREADER OPERATOR Work Phone: [facility]11-28-2022 14:50-0500Diastolic blood afcdbwyv20 mm[Hg]Maranda Schmid APRN.SPREADER OPERATOR Work Phone: [facility]11-28-2022 14:50-0500Heart rate67 /min Maranda Schmid APRN.SPREADER OPERATOR Work Phone: [facility]11-28-2022 14:50-0500Respiratory rate 16 /minMaranda Schmid APRN.SPREADER OPERATOR Work Phone: [facility]11-28-2022 14:50-7458HyF4% (BldA) [Mass fraction]98 %Maranda Schmid APRN.SPREADER OPERATOR Work Phone: [facility]11-28-2022 14:50-0500Systolic blood crkgowzn445 mm[Hg]Maranda Schmid APRN.SPREADER OPERATOR Work Phone: [facility]09-19-2022 10:03-0400Body zgibji786.4 Eduar Yousif MD Work Phone: [facility]09-19-2022 10:03-0400Body temperature 97.2 [degF]Atif Yousif MD Work Phone: [facility]09-19-2022 10:03-0400Diastolic blood uqynwago29 mm[Hg]Atif Yousif MD Work Phone: [facility]09-19-2022 10:03-0400Heart rate73 /min Atif Yousif MD Work Phone: [facility]09-19-2022 10:03-0400Respiratory rate 16 /minAtif Yousif MD Work Phone: [facility]09-19-2022 10:03-8510OcE2% (BldA) [Mass fraction]97 %Atif Yousif MD Work Phone: [facility]09-19-2022 10:03-0400Systolic blood ddflpidp724 mm[Hg]Atif Yousif MD Work Phone: [facility]09-01-2022 14:07-0400Diastolic blood lqzsuzau90 mm[Hg]Mikey Zumbar [facility]09-01-2022 14:07-0400Heart rate74 /minZachary Zumbar [facility]09-01-2022 14:07-0400Mean blood adjkjtfc959 mm[Hg]Mikey Zumbar [facility]09-01-2022 14:07-0400 Respiratory rate18 /minZachary Zumbar [facility]09-01-2022 14:07-0400 Systolic blood njhmleob961 mm[Hg]Mikey Zumbar [facility]08-02-2022 11:00-0400Body ldeaiu403.02 cmAbdul Dolores Other [employer] Other [id number] 11:00-0400Body mass index (BMI) [Ratio] 28.34 kg/x0Ohhbj Dolores Other [employer] Other 08-02-2022 11:00-0400Body bqsnyhxtnsi99.1 [degF]Mir Dolores Other [employer] Other 08-02-2022 11:00-0400Body .58 kgAbdul Dolores Other [employer] Other 08-02-2022 11:00-0400Diastolic blood qyngihrl14 mm[Hg] Mir Dolores Other [employer] Other 08-02-2022 11:00-0400Respiratory rate18 /minAbdul Dolores Other [employer] Other 08-02-2022 11:00-1822HlG0% (BldA) [Mass fraction]97 % Mir Dolores Other [employer] Other 08-02-2022 11:00-0400Systolic blood sgiizhfc534 mm[Hg] Mir Dolores Other [employer] Other [id number] 13:51-0400Diastolic blood nimwjgay14 mm[Hg] Mikey Zumbar [facility]07-14-2022 13:51-0400Heart rate71 /minZachary Zumbar [facility]07-14-2022 13:51-0400Mean blood mm[Hg]Mikey Zumbar [facility]07-14-2022 13:51-0400 Respiratory rate16 /minMikey Holden [facility]07-14-2022 13:51-0400 Systolic blood qgjsqodm632 mm[Hg]Mikey Holden [facility]06-27-2022 15:19-0400Body fvkvno994.4 cmAtif Yousif MD Work Phone: [facility]06-27-2022 15:19-0400Body temperature 97.81 [degF]Atif Yousif MD Work Phone: [facility]06-27-2022 15:19-0400Body vvlijo54.12 kgAtif Yousif MD Work Phone: [facility]06-27-2022 15:19-0400Diastolic blood ircgiavg90 mm[Hg]Atif Yousif MD Work Phone: [facility]06-27-2022 15:19-0400Heart rate83 /min Atif Yousif MD Work Phone: [facility]06-27-2022 15:19-0400Respiratory rate 16 /minAtif Yousif MD Work Phone: [facility]06-27-2022 15:19-5720UiM3% (BldA) [Mass fraction]93 %Atif Yousif MD Work Phone: [facility]06-27-2022 15:19-0400Systolic blood mm[Hg]Atif Yousif MD Work Phone: [facility]05-12-2022 14:40-0400Diastolic blood mm[Hg][facility]/[place] Work Phone: [facility]05-12-2022 14:40-0400Heart rate72 /min Lab/[place] Work Phone: [facility]05-12-2022 14:40-0400Respiratory rate 18 /minLab/[place] Work Phone: [facility]05-12-2022 14:40-0400Systolic blood pzcveqvv721 mm[Hg]Lab/[place] Work Phone: [facility]04-21-2022 15:36-0400Body didssu674.4 cmAtif Yousif MD Work Phone: [facility]04-21-2022 15:36-0400Body temperature 98.4 [degF]Atif Yousif MD Work Phone: [facility]04-21-2022 15:36-0400Diastolic blood odqdjzpy60 mm[Hg]Atif Yousif MD Work Phone: [facility]04-21-2022 15:36-0400Heart rate81 /min Atif Yousif MD Work Phone: [facility]04-21-2022 15:36-0400Respiratory rate 16 /minAtif Yousif MD Work Phone: [facility]04-21-2022 15:36-4673DcC2% (BldA) [Mass fraction]96 %Atif Yousif MD Work Phone: [facility]04-21-2022 15:36-0400Systolic blood mm[Hg]Atif Yousif MD Work Phone: [facility]03-29-2022 11:00-0400Body .02 cmAbdul Dolores Other [employer] Other 03-29-2022 11:00-0400Body mass index (BMI) [Ratio] 28.34 kg/a8Alsgj Dolores Other [employer] Other 03-29-2022 11:00-0400Body jqzdbnszkeg79.7 [degF]Mir Dolores Other [employer] Other 03-29-2022 11:00-0400Body .58 kgAbdul Dolores Other [employer] Other 03-29-2022 11:00-0400Diastolic blood sovteuhb08 mm[Hg] Mir Dolores Other [employer] Other 03-29-2022 11:00-0400Respiratory rate18 /minAbdul Dolores Other [employer] Other 03-29-2022 11:00-5404VpI4% (BldA) [Mass fraction]96 % Mir Dolores Other [employer] Other 03-29-2022 11:00-0400Systolic blood jewkekfz594 mm[Hg] Mir Dolores Other [employer] Other 12-28-2021 10:20-0500Body .02 cmAbdul Dolores Other [employer] Other 12-28-2021 10:20-0500Body mass index (BMI) [Ratio] 29.76 kg/o3Tgcfj Dolores Other [employer] Other 12-28-2021 10:20-0500Body qonrwhcghhm35.2 [degF]Mir Dolores Other [employer] Other 12-28-2021 10:20-0500Body aoeocc79.2 kgAbdul Dolores Other [employer] Other 12-28-2021 10:20-0500Diastolic blood dsfhfuyw42 mm[Hg] Mir Dolores Other [employer] Other 12-28-2021 10:20-0500Respiratory rate18 /minAbdul Dolores Other [employer] Other 12-28-2021 10:20-7753JcY1% (BldA) [Mass fraction]96 % Mir Dolores Other [employer] Other 12-28-2021 10:20-0500Systolic blood pgdabchc587 mm[Hg] Mir Dolores Other [employer] Other Encounters Encounter DateEncounter TypeCare ProviderFacilityStart: 08-05-2025 End: 37-71-2431Giyccv flowsheetChantal Ward DPM Work Phone: [facility] [place] [facility]ryStart: 08-05-2025 End: 23-35-9117Wvwfbz flowsheetChvesta Ward DPZhou Work Phone: [facility]iatryStart: 08-05-2025 End: 68-39-7006Vewcobb encounter procedureChristopher Celia Ward DPZhou Work Phone: [facility] [place] PodiatryComment on above:Idiopathic progressive polyneuropathy (Primary Dx); Onychomycosis; Corns and callositiesStart: 08-05-2025 End: 25-30-0073vxqoctsuuoOHFLDRDHDRC J BOHACHNot AvailableStart: 08-04-2025 End: 13-70-1406sayblgxybiKohbzlpg Ball DO Work Phone: [facility] Work Phone: Start: 08-04-2025 End: 18-57-4479Umkwwbt encounter procedureNatividad Corona MD-[facility] Work Phone: Start: 07-06-2025 End: 91-66-9708rbbttzrxhmBnueateo Ball DO Work Phone: [facility] Work Phone: Start: 07-06-2025 End: 66-52-2119Oqhvvrv encounter procedureBebryant Dinah DO-[facility] Work Phone: Start: 05-27-2025 End: 81-35-1781Nnruiv flowsheetChristopher J Bohach DPM Work Phone: [facility]iatryStart: 05-27-2025 End: 21-31-6281Ufvrsm flowsheetChristopher J Bohach DPM Work Phone: [facility]iatryStart: 05-27-2025 End: 43-54-7167Cokmfgw encounter procedureChristopher J Bohach DPM Work Phone: [facility] [place] PodiatryComment on above:Idiopathic progressive polyneuropathy (Primary Dx); Onychomycosis; Corns and callositiesStart: 05-27-2025 End: 12-52-6163exyamifoaeAKMYYOPGPGN Celia WARDNot AvailableStart: 05-16-2025 End: 05-27-2989Tntphxl encounter Sofia Schmid APRN.SPREADER OPERATOR Work Phone: Hematology/OncologyStart: 56-01-6720Lsu-patient / Non-visitMINDY ELISSA Epperson PA-C-[facility] Work Phone: Start: 05-16-2025 End: 65-90-5807xiskczsjkmIiqdw Martinez APRN.SPREADER OPERATOR Work Phone: Hematology/OncologyComment on above:Iron deficiency (Primary Dx); Chronic renal impairment, stage 3 (moderate), unspecified whether stage 3a or 3b CKD (HCC); Type 2 diabetes mellitus without complication, without long-term current use of insulin (HCC); Crohn's disease without complication, unspecified gastrointestinal tract location (HCC); Type 2 diabetes mellitus with hyperglycemia, with long-term current use of insulin (HCC); Anemia, unspecified typeStart: 05-09-2025 End: 93-91-1392Opxjypben Pedro Escobedo RNHematology/OncologyComment on above:Lab OrdersStart: 04-06-2025 End: 72-80-3922xgikhpqtyhBLHPZONP E BALLFacility:[facility] Toledotart: 03-31-2025 End: 91-86-4581Xgpealfci Wendi Schmid APRN.CNP Work Phone: [facility] LaboratoryComment on above:Lab OrdersStart: 03-25-2025 End: 78-16-4363Nbroua flowsheetChristopher Celia Ward DPM Work Phone: [facility]ODIATRYStart: 03-25-2025 End: 94-34-6618Fwzzqk flowsheetChristopher Celia Ward DPZhou Work Phone: no[facility] PODIATRYStart: 03-25-2025 End: 06-90-2804yepkefmlaiIUFZSSWPASH J BOHACHNot AvailableStart: 03-25-2025 End: 69-81-0608Lltkqvt encounter procedureChristopher Celia Ward DPZhou Work Phone: [facility] PODIATRYComment on above:Idiopathic progressive polyneuropathy (Primary Dx); Onychomycosis; Corns and callosities; Pain in both feetStart: 02-22-2025 End: 70-46-3511Jfmsmtrtw Wendi Schmid APRN.CNP Work Phone: Cancer Appts MCComment on above:ResultsStart: 02-22-2025 End: 00-15-7757Zpudfkk encounter Sofia Schmid APRN.CNP Work Phone: Hematology/OncologyStart: 02-22-2025 End: 97-56-5990evfafsdlnoYcjxvJerald Schmid APRN.CNP Work Phone: Hematology/OncologyComment on above:Iron deficiency (Primary Dx); Chronic renal impairment, stage 3 (moderate), unspecified whether stage 3a or 3b CKD (HCC); Type 2 diabetes mellitus without complication, without long-term current use of insulin (HCC); Crohn's disease without complication, unspecified gastrointestinal tract location (HCC)Start: 2025 End: 66-16-7657aygsnsmnagOzsiqhfoqCrystal [facility] Work Phone: Start: 2025 End: 45-53-2935Lftwspn encounter procedureK[facility] Work Phone: Start: 2025 End: 48-86-7170Kzmlgn flowsMichael Marks DO Work Phone: noms NB OPHTStart: 2025 End: 28-17-5406Kmznkv flowsMichael Marks DO Work Phone: noms NB OPHTStart: 2025 End: 59-08-6292Mwjvlr follow up visit related to original Tano Marks DO Work Phone: noms NB OPHTComment on above:Basal cell carcinoma (BCC) of right lower eyelid (Primary Dx); Malignant neoplasm of skin of eyelid, including canthusStart: 2025 End: 12-92-9036fbbktypmwzSNKCMOHOGilmar Ramirez AvailableStart: 01-28-2025 End: 02-92-4436Ynu Drop offBelinda Marks [facility] Start: 01-28-2025 End: 80-25-1143Juhceji encounter procedureBelinda Marks DO Work Phone: noms NB OPHTComment on above:Malignant neoplasm of skin of eyelid, including canthus (Primary Dx); Basal cell carcinoma (BCC) of right lower eyelid; Hemorrhage of eyelidStart: 01-28-2025 End: 08-82-9366dsfkouipqmNXRobbie MarksFacility:FTMCStart: 01-21-2025 End: 13-91-3204istqypfpedXIDYGDSP D ZAHLERNot AvailableStart: 01-20-2025 End: 61-07-4142Crtyciq encounter procedureChvesta Ward DPM Work Phone: noms WWW PODIATRYComment on above:Idiopathic progressive polyneuropathy (Primary Dx); Onychomycosis; Corns and callosities; Pain in both feetStart: 01-20-2025 End: 32-67-0168mppenzygaiSXYKUPYEAYA J BOHACHNot AvailableStart: 01-20-2025 End: 69-78-2110Zkklcv flowsheetChvesta Ward DPM Work Phone: noms WWW PODIATRYStart: 01-20-2025 End: 91-88-7119Sjwydm flowsheetChantal Ward DPM Work Phone: noms WWW PODIATRYStart: 12-29-2024 End: 25-64-1621vwfkaipudnIbxhcmnfnProMedica Memorial Hospital Work Phone: Start: 12-29-2024 End: 76-47-3022Huzqygb encounter procedureDavis [facility] Work Phone: Start: 56-19-2401Fnn-patient / Non-visitDavis Regional Medical Center [facility] Work Phone: Start: 11-18-2024 End: 35-14-3768Nxphqg flowsheetChvesta Ward DPM Work Phone: noms WWW PODIATRYStart: 11-18-2024 End: 42-21-2940Aujuyj flowsheetChvesta Ward DPM Work Phone: noms WWW PODIATRYStart: 11-18-2024 End: 19-95-2748Xoxdwkt encounter procedureChvesta Ward DPM Work Phone: noms WWW PODIATRYComment on above:Idiopathic progressive polyneuropathy (Primary Dx); Onychomycosis; Corns and callosities; Pain in toes of both feet; Pain in both feetStart: 11-18-2024 End: 27-36-9914fqgjjutbkrMSGBVUAZGMT J BOHACHNot AvailableStart: 09-23-2024 [facility] End: 50-56-8206Xkmsdq flowsheetChvesta Ward DPM Work Phone: noms WWW PODIATRYStart: 09-13-2024 End: 05-79-9819Qopkmj flowsheetChvesta Ward DPM Work Phone: noms WWW PODIATRYStart: 09-13-2024 End: 52-92-9448Clqpdxt encounter procedureChvesta Ward DPM Work Phone: noms WWW PODIATRYComment on above:Idiopathic progressive polyneuropathy (Primary Dx); Onychomycosis; Corns and callositiesStart: 09-13-2024 End: 64-79-8859agtqlhecvmKILCITDEZOE J BOHACHNot AvailableStart: 09-02-2024 End: 93-87-6735Odsayzw encounter Sofia Schmid APRN.CNP Work Phone: Hematology/OncologyStart: 09-02-2024 End: 13-57-1856swsdlqohquYlqshJerald Schmid APRN.CNP Work Phone: Hematology/OncologyComment on above:Iron deficiency anemia due to chronic blood loss (Primary Dx); Iron deficiency; Chronic renal impairment, stage 3 (moderate), unspecified whether stage 3a or 3b CKD (HCC); Type 2 diabetes mellitus without complication, without long-term current use of insulin (HCC); Crohn's disease without complication, unspecified gastrointestinal tract location (HCC)Start: 08-24-2024 End: 12-99-0532Xvkwnhfoh Wendi Schmid APRN.CNP Work Phone: Hematology/OncologyComment on above:Lab OrdersStart: 08-02-2024 End: 46-97-8061cfvilcutcuHzneyzthzCrystal Clinic [facility] Work Phone: Start: 08-02-2024 End: 57-70-0320Bwsgpyx encounter procedureDavis [facility] Work Phone: Start: 07-12-2024 End: 07-12-7026pohseiwrwdXbrdwwvsqCrystal Clinic Orthopedic Center Work Phone: Start: 07-12-2024 End: 82-77-8837Kdpergg encounter procedureDavis [facility] [place] Work Phone: Start: 07-09-2024 End: 37-03-9133Htmepo flowsheetChristopher Yang Bohach DPM Work Phone: noms WWW PODIATRYStart: 07-09-2024 End: 75-05-9015Xwctze flowsheetChristopher J Bohach DPM Work Phone: noms WWW PODIATRYStart: 07-09-2024 End: 49-13-5533Vztqvph encounter procedureChristopher Celia Bohach DPM Work Phone: noms WWW PODIATRYComment on above:Idiopathic progressive polyneuropathy (Primary Dx); Onychomycosis; Corns and callositiesStart: 79-16-7234Day-patient / Non-visitDavis [facility] Medical Center [facility] GroupCon[facility] Work Phone: Start: 06-04-2024 End: 86-67-4012Jezfmzu encounter procedureDavis [facility] Medical Center Phys[facility] GroupPremier [facility] Work Phone: Start: 47-41-5449Yvy-patient / Non-visitDavis [facility] Medical Center [facility] [place] Work Phone: Start: 02-39-7286Leywjcwnr encounterNatmorena Escobedo RN Hematology/OncologyComment on above:ResultsStart: 02-26-2024 End: 54-70-2530qosjfcvppvRtenn R Murphy MD Work Phone: Hematology/OncologyComment on above:Anemia of chronic renal failure, stage 3b (HCC) (HCC) (Primary Dx); Chronic renal impairment, stage 3b (HCC); History of iron deficiency; Type 2 diabetes mellitus without complication, without long-term current use of insulin (HCC)Start: 02-26-2024 End: 54-84-3011Uxavqpa encounter procedureAtif Yousif MD Work Phone: Hematology/OncologyStart: 12-09-2023 End: 03-69-8342jbombqbjwaAquvugfejCrystal Clinic Orthopedic Center Work Phone: Start: 12-09-2023 End: 60-35-2308Xbkwsbg encounter procedureDavis [facility] Work Phone: Start: 24-99-7151Axq-patient / Non-visitDavis Regional Medical Center [facility]-[employer] Work Phone: Start: 08-74-1166Dvfhuk flowsheetChvesta Ward DPM Work Phone: noms WWW PODIATRYStart: 46-10-0637Dpflwv flowsheet Chantal Ward DPM Work Phone: noms WWW PODIATRYStart: 11-27-2023 End: 85-06-4704Zlyjror encounter procedureChvesta Ward DPM Work Phone: noms WWW PODIATRYComment on above:Idiopathic progressive polyneuropathy (Primary Dx); Onychomycosis; Corns and callositiesStart: 11-06-2023 End: 86-16-9265vncpqykgnjCzdqduvx Dinah Other [employer] Other Start: 45-92-4451Dfylbpbte encounterBenoni NixWright-Patterson Medical Centertart: 09-18-2023 End: 33-68-2721Mlqfnbr encounter procedureDavis [facility] Work Phone: Start: 08-22-2023 End: 53-14-3316erjqxuvnpoHpenwyqf Ball Other [employer] Other Start: 93-79-1961Fjuioefth encounterBenoni ArevaloG [facility] ClinicStart: 08-15-2023 End: 57-20-9489tpuwrrgwqyJqvhfeqr Ball Other [employer] Other Start: 28-14-7621Mtduqky evaluation of patient and reportBenoni ArevaloG [facility] ClinicStart: 08-05-2023 End: 92-13-0334sbibjaxygmCrcfbddn Ball Other [employer] Other Start: 47-87-7074Clbanaqbe encounterBenoni ArevaloG [facility] ClinicStart: 06-26-2023 End: 29-71-0942xvjclrlvlsVyg/[place] Work Phone: Hematology/OncologyComment on above:Anemia of chronic renal failure, stage 3b (HCC) (Primary Dx)Start: 39-83-7470Tbtyilrab encounter Laurita Brady RNHematology/OncologyComment on above:OrdersStart: 06-18-2023 End: 35-64-4504vmvgfjavomJpjooovu Ball Other [employer] Other Start: 27-45-3236Cpapnl outpatient visit 25 minutes Alex Mervin [facility] ClinicStart: 06-12-2023 End: 86-78-3177hlzfhvccsrVqqsa Dolores Other [employer] Other Start: 61-41-2708Hhhvjadgg encounterAbdul QadirFPG NephrologyStart: 06-09-2023 End: 31-82-3484uaswejpoifYcnxkdys Ball Other [employer] Other Start: 32-28-2448Dbbujmtyw encounterBenjamin BallFPG [facility] ClinicStart: 05-29-2023 End: 73-38-6085fvzlaegsmjDyxhd Dolores Other [employer] Other Start: 04-31-8286Enoswh outpatient visit 25 minutes Mir QadirFPG NephrologyStart: 05-15-2023 End: 67-93-7331yhhkplmhxvCztuqayl Ball Other [employer] Other Start: 76-88-8353Pctjxbyrt encounterBenoni Nix Medical ClinicStart: 05-02-2023 End: 69-82-4940rgdljyjcwrNmhrcixc Ball Other [employer] Other Start: 66-62-0033Rueovzfxr encounterBewendyoni Nix Medical ClinicStart: 05-01-2023 End: 55-79-1394jqqlgymlqiIiamh R Murphy MD Work Phone: Hematology/OncologyComment on above:Anemia of chronic renal failure, stage 3b (HCC) (Primary Dx); Chronic renal impairment, stage 3b (HCC); History of iron deficiency; Primary osteoarthritis involving multiple joints; Essential hypertensionStart: 05-01-2023 End: 10-31-0589Xhmpgsr encounter procedureAtif Yousif MD Work Phone: SANDUSKYStart: 03-20-2023 End: 54-99-4589lnltawmwvpYfl/[place] Work Phone: Hematology/OncologyComment on above:Anemia of chronic renal failure, stage 3b (HCC) (Primary Dx)Start: 03-18-2023 End: 84-61-1151rlikaaymnyUtczlcbr Ball Other [employer] Other Start: 55-02-8765Wsyvjq outpatient visit 25 minutes Alex Mervin [facility] ClinicStart: 03-04-2023 End: 96-26-7427pnuvconmcaTL ALEX BALLFacility:Z8Rkkcy: 02-24-2023 End: 22-72-4704ermxdwkfvbWsjkekqr Ball Other [employer] Other Start: 78-22-3720Cqlyvsjeh encounterBenjamin BallFPG [facility] ClinicStart: 02-17-2023 End: 57-32-8029flaiblgvgdEgnutyjy Ball Other [employer] Other Start: 33-29-1563Awqfpz outpatient visit 15 minutes Alex BallFPG [facility] ClinicStart: 44-71-7234Ymlrrkxxf encounterBenjamin BallFPG [facility] ClinicStart: 02-13-2023 End: 28-35-0445oivvuyfrfvMqmkfier Ball Other [employer] Other Start: 11-81-4457Iztkfyzty encounterBenjamin BallFPG [facility] ClinicStart: 02-12-2023 End: 36-71-9493eghgyotwojJJ ALEX BALLFacility:Q4Fdlnt: 02-06-2023 End: 36-79-9210qtgsyhtntbXhc/[place] Work Phone: Hematology/OncologyComment on above:Anemia of chronic renal failure, stage 3b (HCC) (Primary Dx)Anemia of chronic renal failure, stage 3b (HCC) (Primary Dx); Chronic renal impairment, stage 3b (HCC); History of iron deficiencyStart: 02-06-2023 End: 75-53-1382Ghcksjn encounter Vel Yousif MD Work Phone: SANDUSKYStart: 01-31-2023 End: 71-75-6822kczzjhqyvnXhbypohc Ball Other [employer] Other Start: 51-10-2913Nnrooghsm encounterBenjamin BallFPG [facility] ClinicStart: 01-27-2023 End: 56-32-7679qixdxbcereMhgxe Dolores Other [employer] Other Start: 75-27-8003Jqhfzuzvl encounterAbdpedro Lizarraga [facility] ClinicStart: 12-26-2022 End: 23-96-6629Ogmu Irma Holden [facility] Start: 12-25-2022 End: 07-29-1278fqqejeoxsvQac/[place] Work Phone: Hematology/OncologyComment on above:Anemia of chronic renal failure, stage 3b (HCC) (Primary Dx)Start: 12-16-2022 End: 35-43-5537tyqmrpgidkMgnsvrwy Dinah Other [employer] Other Start: 24-14-2364Nvknzh outpatient visit 25 minutes Alex [facility] ClinicStart: 12-11-2022 End: 65-52-7579dqssnoizhuIY ALEX NIXFacility:H6Aqjvc: 11-27-2022 End: 16-78-9758wqjhvflkisPdvdg Dolores Other [employer] Other Start: 35-01-5371Uvsjdk outpatient visit 25 minutes Mir QadirFPG NephrologyStart: 11-18-2022 End: 33-23-5842rfchnckediBRFeliz NIXFacility:T1Bqxhq: 11-11-2022 End: 34-15-0574iqagyysstaEeezm R Murphy MD Work Phone: Hematology/OncologyComment on above:Anemia of chronic renal failure, stage 3b (HCC) (Primary Dx); Chronic renal impairment, stage 3b (HCC); History of iron deficiencyStart: 11-11-2022 End: 91-73-2493Waqewsm encounter procedureAtif Yousif MD Work Phone: SANDUSKYStart: 10-10-2022 End: 08-03-7042Iisn ManagementZachary Zumbar [facility] Start: 09-16-2022 End: 52-39-3555kptibokxkrAda/[place] Work Phone: Hematology/OncologyComment on above:Anemia of chronic renal failure, stage 3b (HCC) (Primary Dx)Anemia of chronic renal failure, stage 3b (HCC) (Primary Dx); Iron deficiency anemia due to chronic blood loss; Primary osteoarthritis involving multiple joints; Essential hypertensionStart: 09-16-2022 End: 93-31-9698Vxotzqt encounter Sofia Schmid APRN.CNP Work Phone: SANDUSKYStart: 80-65-0113Kmavu health examination Alex Nix Other [employer] Other Start: 07-08-2022 End: 62-72-8331ozkapkcvqkFhavt R Murphy MD Work Phone: Hematology/OncologyComment on above:Anemia of chronic renal failure, stage 3b (HCC) (Primary Dx); Chronic renal impairment, stage 3b (HCC); Iron deficiency anemia due to chronic blood lossStart: 07-08-2022 End: 63-68-4895Maeusvo encounter Vel Yousif MD Work Phone: SANDUSKYStart: 06-20-2022 End: 29-35-4365Bseg ManagementZachary Zumbar [facility] Start: 06-04-2022 End: 26-90-2845pgyosugmaxBC ALEX NIXFacility:T6Xzdfi: 05-21-2022 End: 69-90-7147anxutojxfjSvmti Dolores Other [employer] Other Start: 14-11-4378Actcai outpatient visit 15 minutes Mir QadirFPG NephrologyStart: 05-15-2022 End: 53-38-8300aqdjatwkqnXS BENJAMIN BALLFacility:Z3Hnlsk: 05-15-2022 End: 56-63-6703ebhssumhqtSMFeliz NIXFacility:S8Ptwhf: 58-28-4155vjneabnamu DR ALEX Teresacility:C7Hdgtv: 05-02-2022 End: 53-64-8117DhvkDoctor's Hospital [facility] Start: 04-15-2022 End: 50-43-0240xuhugswezdRog/[place] Work Phone: Hematology/OncologyComment on above:Anemia of chronic renal failure, stage 3b (HCC) (Primary Dx)Anemia of chronic renal failure, stage 3b (HCC) (Primary Dx); Chronic renal impairment, stage 3b (HCC); Iron deficiency anemia due to chronic blood loss; Primary osteoarthritis involving multiple joints; Essential hypertensionStart: 04-15-2022 End: 68-06-7135Pjpjlmn encounter Vel Yousif MD Work Phone: SANDUSKYStart: 86-06-1848Ngeoyaulb encounterAtif Yousif MD Work Phone: Hematology/OncologyComment on above:Lab OrdersStart: 02-28-2022 End: 57-72-3543ajgfephrksSbj/[place] Work Phone: Hematology/OncologyComment on above:Anemia of chronic renal failure, stage 3b (HCC) (Primary Dx)Start: 2022 End: 37-06-2788wpdennkicxLvvyj R Murphy MD Work Phone: Hematology/OncologyComment on above:Anemia of chronic renal failure, stage 3b (HCC) (Primary Dx); Chronic renal impairment, stage 3b (HCC); Iron deficiency anemia due to chronic blood loss; Primary osteoarthritis involving multiple joints; Essential hypertensionStart: 2022 End: 47-64-2296Ddudyuz encounter Vel Yousif MD Work Phone: sandUSKYStart: 01-15-2022 End: 94-46-8739awcwvjpuvzJfxlh Dolores Other [employer] Other Start: 90-76-5847Kpkwnx outpatient visit 25 minutes Mir QadirFPG NephrologyStart: 80-89-6655Qyumhjcwb encounterAbdul QadirFPG NephrologyStart: 12-20-2021 End: 99-83-3049cfmsasrgfhOckfe Dolores Other [employer] Other Start: 78-72-8209Gofttnxpy encounterAbdul QadirFPG NephrologyStart: 10-16-2021 End: 15-85-0343kddyxhnmvqOltjm Dolores Other [employer] Other Start: 43-72-5271Brvwod outpatient visit 25 minutes Mir QadirFPG Nephrology Procedures DateProcedureProcedure DetailPerforming ClinicianStart: 01-21-2025 End: 06-79-5876Mulgc medical xm&eval kellye new pt 1/> vstBasal cell carcinoma (BCC) of right lower eyelidJonaseemkroin Roxana Enmanuel DO Work Phone: comment on above:Basal cell carcinoma (BCC) of right lower eyelid (Primary Dx); Malignant neoplasm of skin of eyelid, including canthus; Hemorrhage of eyelidStart: 94-21-3992zbijuqtzpafenf epidural steroid injection 1 [employer] comment on above:right L2,3,4 TFESI- 50% relief x 2 days back pain, 100% relief of right leg pain to presentStart: 44-58-7612Hguon Transformanial epidural steroid injection 2[employer] comment on above:right L3, L4 L5 0% reliefStart: 93-36-1117Iibob transforaminal epidural steroid injection L3-L4-L5 3[employer] comment on above:100% relief from leg pain but still haslow back pain when standingStart: 65-84-4617Arhqyb piriformis muscle (body structure)MikeySignalDemand comkvgw on above:right 100% RELIEFStart: 03-13-2016 Selective Nerve Root Block 5[employer] comment on above:Right SNRB L3,L4,L5 60 % relief afer 10 daysStart: 12-46-7523Ya. Transforaminal Epidural Steroid Injection 6[employer] comzfcl on above:L3, L4, L5--60% reliefStart: 89-31-0372Yorue Transforaminal Epidural Steroid Injection 7Za[employer]ou[employer]ry [employer] comment on above:F3-H7-G1Tqndk: 09-09-2014 TRANSFORAMINAL EPIDURAL STEROID 8[employer] comment on above:RIGHT L3+4+5 TFESIStart: 05-25-2014 Epidural injection of lumbar spine using fluoroscopic guidanceDeskom comdywb on above:L5-S1 ESIStart: 90-68-7638Wnnvxaxqa of sacroiliac joint using fluoroscopic guidanceDeskom comtiwq on above:BILAT SIJIStart: 14-50-2980Jhypvvfh injection of lumbar spine using fluoroscopic guidanceZaSoufunry [employer] comment on above:L5-S1 ESIStart: 33-40-0471Oboymte examination of patientBenjamin Ball Other Start: 87-06-4666Vpxdpotv injection of lumbar spine using fluoroscopic guidanceZaSoufunry [employer] comkplo on above:L5-S1 ESIStart: 44-65-0979Cojfnuaxk of steroid into shoulder jointZaSignalDemand comtsti on above:BILATStart: 37-30-4578Lkskc anesthetic sacral epidural blockXimenakettering health miamisburgluaren Holden comment on above:W/ CATHStart: 28-18-6374YQTUNOZINMQDSG EPIDURAL STERIOD IN JECTION 15Mikey Holden comyhuc on above:RIGHT L3+4+5 TFESIStart: 09-16-2012 TRANSFORAMINAL EPIDURAL STERIOD INJECTION 16Mikey Holden comcwct on above:RIGHT L3+4+5 TFESIBACK SURGERY 17 Mikey Holden comment on above:2005Depression screeningBenjamin Ball Other HysterectomyZakettering health miamisburglauren [place] [employer] Servicesandres Total knee replacementXimenakettering health miamisburglauren [place] [employer] Servicesandres comhslp on above:LEFT 11/2010 Plan of Treatment DateCare ActivityDetailAuthorStart: 24-41-1158Xmasentv ScreeningDiabetes ScreeningSelect Medical Specialty Hospital [facility]hilltart: 54-59-4353Mnwbgylg ScreeningDiabetes Screening [facility]: 11-12-2337Brmrsdse ScreeningDiabetes ScreeningSelect Medical Specialty Hospital [facility] [place]-[facility]: 66-24-1698Pgkxxuiw ScreeningDiabetes ScreeningPremier Health [facility] Start: 87-79-1748Kvhkctar ScreeningDiabetes ScreeningSelect Medical Specialty Hospital [facility] [place]-[facility]hilltart: 27-15-1549VVYMXBTG SCREENDIABETES SCREENSelect Medical Specialty Hospital - [place]-[facility]hilltart: 05-01-2026 DIABETES SCREENDIABETES SCREENSelect Medical Specialty Hospital - [place]-[facility]hilltart: 28-28-3254XEHVTNPS SCREEN DIABETES SCREENSelect Medical Specialty Hospital - [place]-[facility]hilltart: 11-16-2025 End: 58-95-6475FWK W Auto Differential panel - BloodCOMPLETE BLOOD [...] (HCC) Anemia, unspecified type Expected: 11/16/2025, Expires: 02/15/2026[facility] Work Phone: Comment on above:Expected: 11/16/2025, Expires: 02/15/2026Start: 11-16-2025 End: 41-15-2795Qfjvlvbklodrz metabolic 2000 panel - Serum or PlasmaCOMPREHENSIVE [...] (HCC) Anemia, unspecified type Expected: 11/16/2025, Expires: 02/15/2026[facility] HospitalComment on above:Expected: 11/16/2025, Expires: 02/15/2026Start: 11-16-2025 End: 43-82-6977Vjgtmbti [Mass/volume] in Serum or PlasmaFERRITIN Lab Routine [...] (HCC) Anemia, unspecified type Expected: 11/16/2025, Expires: 02/15/2026[facility] Comment on above:Expected: 11/16/2025, Expires: 02/15/2026Start: 11-16-2025 End: 40-55-9052Noth and Iron binding capacity panel - Serum [...] on above:Expected: 11/16/2025, Expires: 02/15/2026Start: 11-14-2025 End: 02-99-6104Ojwnql-up jurygfzkf22/26/2026 2:30 PM EST Visit (SP) Office Hematology/Oncology [address] [place], [place] [phone] Maranda Schmid APRN.SPREADER OPERATOR [address] [place] [address] 6 month follow up labHematology/OncologyComment on above:6 month follow up labStart: 11-14-2025 End: 14-12-9644Vmidgte encounter thwtufbam75/26/2026 2:15 PM EST Office Visit [facility] [address] [place] [address] 6 month follow up labNortSelect Specialty Hospital LaboratoryComment on above:6 month follow up labStart: 78-56-3584MMDKFWEF SCREEN DIABETES SCREENSelect Medical Specialty Hospital - [facility]hilltart: 10-07-2025 End: 99-56-9399Qnpfeaw encounter zmryakrum53/19/2025 11:15 AM EST Procedure Visit [facility] [address] [place] [phone] Chantal Ward, GERARDM [address] [place] [address] [facility] PodiatryStart: 09-16-2025 DIABETES SCREENDIABETES SCREENSelect Medical Specialty Hospital [facility]: 08-05-2025 End: 14-86-3839Vqnzrxk encounter xlnggundy71/17/2025 11:15 AM EDT Procedure Visit [facility] [address] [place] [phone] Chantal Ward, DPM [address] [place] [address] FRANCISCO JAVIERJean Chiu PodiatryStart: 07-08-2025 DIABETES SCREENDIABETES SCREENSelect Medical Specialty Hospital [facility]: 73-70-7991Gsygdiwzr vaccinationInfluenza Vaccine (#1)[facility]: 05-27-2025 End: 81-89-2347Ewmukja encounter procedureNOMS WWW PODIATRYComment on above: ArrivedStart: 05-16-2025 End: 59-97-9611Bqqday-up njyrxrbmk20/28/2025 2:30 PM EDT Visit (SP) Office Hematology/Oncology [address] [place], [place] [phone] Maranda Schmid APRN.SPREADER OPERATOR [address] [place] [address] 12 week follow up labHematology/OncologyComment on above:12 week follow up labStart: 05-16-2025 End: 45-60-5782Tndgcoi encounter /28/2025 2:15 PM EDT Office Visit [facility] [address] [place] [address] 12 week follow up labNortSelect Specialty Hospital LaboratoryComment on above:12 week follow up labStart: 05-09-2025 End: 40-65-1654RUK W Auto Differential panel - BloodCOMPLETE BLOOD COUNT AND DIFFERENTIAL Lab Routine Iron deficiency Chronic renal impairment, stage 3 (moderate), unspecified whether stage 3a or 3b CKD (HCC) Expected: 05/09/2025, Expires: 08/08/2025[facility] Work Phone: Comment on above:Expected: 05/09/2025, Expires: 08/08/2025Start: 05-09-2025 End: 08-19-8271Ekuqhvrpvnbfh metabolic 2000 panel - Serum or PlasmaCOMPREHENSIVE METABOLIC PANEL Lab Routine Iron deficiency Chronic renal impairment, stage 3 (moderate), unspecified whether stage 3a or 3b CKD (HCC) Expected: 05/09/2025, Expires: 08/08/2025[facility] HospitalComment on above:Expected: 05/09/2025, Expires: 08/08/2025Start: 05-09-2025 End: 13-70-5730Adyaxsuu [Mass/volume] in Serum or PlasmaFERRITIN Lab Routine Iron deficiency Chronic renal impairment, stage 3 (moderate), unspecified wheth er stage 3a or 3b CKD (HCC) Expected: 05/09/2025, Expires: 08/08/2025leveland ClinicComment on above:Expected: 05/09/2025, Expires: 08/08/2025Start: 05-09-2025 End: 07-76-3321Tvoo and Iron binding capacity panel - Serum or PlasmaIRON AND TIBC Lab Routine Iron deficiency Chronic renal impairment, stage 3 (moderate), unspecifiedwhether stage 3a or 3b CKD (HCC) Expected: 05/09/2025, Expires: 08/08/2025[facility] ClinicComment on above:Expected: 05/09/2025, Expires: 08/08/2025Start: 09-50-4884YMTANNTA SCREENDIABETES SCREENGalion Hospitalveland ClinicStart: 04-06-2025 End: 25-22-2466Bepoeve encounter vakjvuorc33/18/2025 2:00 PM EDT Office Visit [facility] [address] [place] [address] 6 week repeat labNortSelect Specialty Hospital LaboratoryComment on above:6 week repeat labStart: 03-31-2025 End: 30-17-3793FMK W Auto Differential panel - BloodCOMPLETE BLOOD COUNT AND DIFFERENTIAL Lab Routine Iron deficiency anemia due to chronic blood loss C hronic renal impairment, stage 3 (moderate), unspecified whether stage 3a or 3b CKD (HCC) Iron deficiency Expected: 03/31/2025, Expires: 06/30/2025[facility] hospitaland [facility] Work Phone: Comment on above:Expected: 03/31/2025, Expires: 06/30/2025Start: 03-25-2025 End: 84-03-3703Ykekphq encounter lrlcxmoxq04/06/2025 11:00 AM EDT Procedure Visit [facility] [address] [place] [address] Chantal Ward, DPM [address] [facility] [place] [address] [facility]W PODIATRYStart: 03-15-2025 End: 93-95-0757Yojqkc-up encounterHematology/OncologyComment on above:3 week follow up with lab and possible aranespStart: 03-15-2025 End: 74-07-2045Awvbktz encounter kyxzvrbbe10/27/2025 10:15 AM EDT Office Visit [facility] [address] [place] [address] 3 week follow up with lab and possible aranespNorth [facility] LaboratoryComment on above:3 week follow up with lab and possible aranespStart: 03-03-2025 End: 26-36-3720Ywagfc-up mtxboxqij56/15/2025 2:20 PM EDT Visit (SP) Office Hematology/Oncology [address] [place], [place] [phone] Atif Yousif MD [address] [place] [address] 6 month follow upHematology/OncologyComment on above:6 month follow upStart: 03-03-2025 End: 18-06-4766Jdbbkwo encounter selbhbsuc58/15/2025 2:00 PM EDT Office Visit [facility] [address] [place], [place] [address] [address] 6 month follow upNortSelect Specialty Hospital LaboratoryComment on above:6 month follow upStart: 03-02-2025 End: 23-98-3070EFO W Auto Differential panel - BloodCOMPLETE BLOOD COUNT AND DIFFERENTIAL Lab Routine Iron deficiency Chronic renal impairment, stage 3 (moderate), unspecified whether stage 3a or 3b CKD (HCC) Iron deficiency anemia due to chronic blood loss Type 2 diabetes mellitus without complication, without long-term current use of insulin (HCC)Crohn's disease without complication, unspecified gastrointestinal tract location (HCC) Expected: 03/02/2025, Expires: 06/01/2025[facility] Work Phone: Comment on above:Expected: 03/02/2025, Expires: 06/01/2025Start: 03-02-2025 End: 05-31-0355Akiwwwtabmaee metabolic 2000 panel - Serum or PlasmaCOMPREHENSIVE [...] on above:Expected: 03/02/2025, Expires: 06/01/2025Start: 03-02-2025 End: 01-79-8464Iqzkbsjh [Mass/volume] in Serum or PlasmaFERRITIN Lab Routine Iron deficiency Chronic renal impairment, stage 3 (moderate), unspecified wheth er stage 3a or 3b CKD (HCC) Iron deficiency anemia due to chronic blood loss Type 2 diabetes mellitus without complication, without long-term current use of insulin (HCC) Crohn's disease without complication, unspecified gastrointestinal tract location (HCC) Expected: 03/02/2025, Expires: 06/01/2025[facility] Comment on above:Expected: 03/02/2025, Expires: 06/01/2025Start: 03-02-2025 End: 00-83-7672Xtim and Iron binding capacity panel - Serum [...] on above:Expected: 03/02/2025, Expires: 06/01/2025Start: 03-01-2025 End: 10-25-1776iurcluygqc20/13/2025 10:45 AM EDT [facility] Hematology/Oncology [address] [place] [address] lab and aranesp in 1 weekHematology/OncologyComment on above:lab and aranesp in 1 week Start: 03-01-2025 End: 50-96-2246Ukvfjec encounter tfcerfkre63/13/2025 10:30 AM EDT Office Visit [facility] [address] [place] [address] lab and aranesp in 1 weekNortSelect Specialty Hospital LaboratoryComment on above:lab and aranesp in 1 weekStart: 24-69-2932Atkhw-19 Vaccine ( season)Covid-19 Vaccine ( season)[facility]: 45-25-2201NYAQVOON SCREENDIABETES SCREENSelect Medical Specialty Hospital [facility]: 2025 End: 19-20-6182Tdfnqya encounter procedureNOMS NB OPHTComment on above:Arrived Start: 01-28-2025 End: 90-48-1847Emekdpz encounter jgrqpandf82/11/2025 11:45 AM EDT Procedure Visit [facility] [address] [place] [phone] Belinda Marks, DO [address] [place] [address] [facility] OPHTStart: 01-21-2025 End: 00-97-9355Bpnbvnd encounter fuhlnzgei70/04/2025 11:00 AM EDT Office Visit [facility] [address] [place] [phone] Belinda Marks DO [address] [place] [address] [facility] NB OPHTStart: 01-20-2025 End: 11-19-1251Ljmxoqu encounter procedureNOMS WWW PODIATRYComment on above: ArrivedStart: 11-18-2024 End: 18-40-8831Plbxbsm encounter procedureNOMS WWW PODIATRYComment on above: ArrivedStart: 16-81-4820Hwtjaeh Directive DiscussionAdvance Directive Discussion [facility]: 09-13-2024 End: 39-68-0764Ueutoal encounter procedureNOMS WWW PODIATRYComment on above: ArrivedStart: 09-02-2024 End: 21-03-0703Ziqmeyj encounter evxiivqqt65/14/2024 2:45 PM EST Office Visit [facility] [address] [place] [address] 6 month follow upNortSelect Specialty Hospital LaboratoryComment on above:6 month follow upStart: 09-02-2024 End: 08-64-8355Axmju metabolic 2000 panel - Serum or PlasmaBASIC METABOLIC PANEL Lab Routine Anemia of chronic renal failure, stage 3b (HCC) (HCC) Expected: , Expires: 12/02/2024[place] ClinicComment on above:Expected: 09/02/2024, Expires: 12/02/2024Start: 09-02-2024 End: 06-47-5490YRT W Auto Differential panel - BloodCOMPLETE BLOOD COUNT AND DIFFERENTIAL Lab Routine Anemia of chronic renal failure, stage 3b (HCC) (HCC) Expected: 09/02/2024, Expires: 12/02/2024[facility] Work Phone: Comment on above:Expected: 09/02/2024, Expires: 12/02/2024Start: 09-02-2024 End: 22-80-6442Mybiwe-up encounterHematology/OncologyComment on above:6 month follow upStart: 09-02-2024 End: 69-57-4671Nylpgns encounter szxcmlnyg90/14/2024 1:30 PM EST Office Visit [facility] [address] [place] [address] 6 month follow upNortSelect Specialty Hospital LaboratoryComment on above:6 month follow upStart: 07-09-2024 End: 35-03-9247Cjbzraf encounter txrjgyxay73/20/2024 11:00 AM EDT Procedure Visit [facility] [address] [place] [phone] Chantal Ward DPM [address] [place] [address] ArrivedNOMS WWW PODIATRYComment on above: ArrivedStart: 66-84-3876Enjij-19 Vaccine ( season)Covid-19 Vaccine ()[facility]: 19-22-2777Pqhvxvofu vaccination Influenza Vaccine (#1)[facility]: 02-26-2024 End: 16-39-8759Tvwnfjajmr A1c in BloodOhiohealth Berger Hospital Work Phone: Comment on above:Expected: 02/26/2024, Expires: 05/27/2024Start: 02-05-2024 End: 56-59-6717Shziing encounter oetdflvxy81/18/2024 10:30 AM EDT Procedure Visit [facility] [address] [place] [phone] Chantal Ward DPM [address] [place] [address] [facility] WWW PODIATRYStart: 63-17-9430Qezcafp Directive DiscussionAdvance Directive DiscussionSelect Medical Specialty [facility]: 45-59-7615Vugllmunjy Health ScreeningBehavioral Health ScreeningPremier Health [facility] Start: 40-41-8638Jqgdz-19 Vaccine ( season)Covid-19 Vaccine ()[facility]: 70-34-3904Motlqumrk vaccinationSelect Medical Specialty Hospital [facility]: 05-01-2023 End: 50-38-2721Dxhsojcw [Mass/volume] in Serum or PlasmaOhiohealth Berger Hospital Work Phone: Comment on above:Expected: 05/01/2023, Expires: 07/01/2023Start: 05-01-2023 End: 24-16-5288Mydw and Iron binding capacity panel - Serum or PlasmaOhiohealth Berger Hospital Work Phone: Comment on above:Expected: 05/01/2023, Expires: 07/01/2023Start: 31-99-5116RSRCS-19 VACCINE (6 - Moderna series)COVID-19 VACCINE (6 - Moderna series)[facility]: 11-11-2022 End: 76-53-1336QYG W Auto Differential panel - BloodCBC + DIFF Lab Routine Anemia of chronic renal failure, stage 3b (HCC) 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 Essential hypertension Expected: 11/11/2022, Expires: 01/11/2023[facility] Work Phone: Comment on above:Expected: 11/11/2022, Expires: 01/11/2023Start: 11-11-2022 End: 06-70-2134Fvcdlnnjnjcnj metabolic 2000 panel - Serum or PlasmaCOMP METABOLIC PANEL Lab Routine Anemia of chronic renal failure, stage 3b (HCC) 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 Essential hypertension Expected: 11/11/2022, Expires: 01/11/2023 [facility] Work Phone: Comment on above:Expected: 11/11/2022, Expires: 01/11/2023Start: 89-55-3695URKTQAE DIRECTIVE DISCUSSIONADVANCE DIRECTIVE DISCUSSIONSelect [facility]: 52-11-7286DRJEXQMLUJ ASSESSMENTDEPRESSION ASSESSMENTSelect Medical Specialty [facility]: 88-69-3559Fufvpidhv vaccinationINFLUENZA (#1) [facility]: 04-11-2022 End: 79-86-4705GIV W Auto Differential panel - BloodCBC + DIFF Lab Routine Iron deficiency Expected: 04/11/2022, Expires: 06/11/2022[facility] Work Phone: Comment on above:Expected: 04/11/2022, Expires: 06/11/2022tart: 04-11-2022 End: 41-85-9944Ijylpgbbvvyqm metabolic 2000 panel - Serum or PlasmaCOMP METABOLIC PANEL Lab Routine Iron deficiency Expected: 04/11/2022, Expires: 06/11/2022[facility] Work Phone: Comment on above:Expected: 04/11/2022, Expires: 06/11/2022tart: 04-11-2022 End: 17-77-0775Fdbzvsgp [Mass/volume] in Serum or PlasmaFERRITIN BLD Lab Routine Iron deficiency Expected: 04/11/2022, Expires: 06/11/2022[facility] Work Phone: Comment on above:Expected: 04/11/2022, Expires: 06/11/2022tart: 04-11-2022 End: 40-08-3317Cqdg and Iron binding capacity panel - Serum or PlasmaIRON + TIBC Lab Routine Iron deficiency Expected: 04/11/2022, Expires: 06/11/2022[facility] Work Phone: Comment on above:Expected: 04/11/2022, Expires: 06/11/2022tart: 02-28-2022 End: 38-48-6275SGL W Auto Differential panel - BloodCBC + DIFF Lab Routine Anemia of chronic renal failure, stage 3b (HCC) Expected: 02/28/2022, Expires: 04/30/2022[facility] Work Phone: Comment on above:Expected: 02/28/2022, Expires: 04/30/2022tart: 92-34-2725XYBBP-19 VACCINE (4 - Booster for Moderna series) COVID-19 VACCINE (4 - Booster for Moderna series)[facility]: 02-78-1439FGOKGUW DIRECTIVE DISCUSSIONADVANCE DIRECTIVE DISCUSSIONSelect Medical Specialty [facility]: 64-26-9308XQYZQNMUQI ASSESSMENTDEPRESSION ASSESSMENTCleMetroHealth [facility] Medical Centertart: 48-01-1382Vrawddekqgfr Vaccine: 65+ Years (2 - PCV)Pneumococcal Vaccine: 65+ Years (2 - PCV)[facility]Start: 39-01-6740Wtlwytpkqkyx Vaccine: 65+ Years (2 of 2 - PCV)Pneumococcal Vaccine: 65+ Years (2 of 2 - PCV) [facility] HospitalStart: 76-69-8323NYKM DENSITYBONE DENSITYSelect Medical Specialty Hospital [facility]: 76-28-5919Uzuenkpha for osteoporosisBone Density ScreeningSelect Medical Specialty Hospital [facility]: 04-01-2005Medicare Annual Wellness VisitMedicare Annual Wellness VisitSelect Medical Specialty Hospital - [facility]: 00-40-5680SJIIXDNHV B (1 of 3 - Risk 3-dose series)HEPATITIS B (1 of 3 - Risk 3-dose series)[facility]: 31-43-4192Wskrtjbnl B Vaccine (1 of 3 - Risk 3-dose series)Hepatitis B Vaccine (1 of 3 - Risk 3-dose series) [facility]: 61-34-2918DVHLWLHO VACCINE (1 of 2)SHINGRIX VACCINE (1 of 2)[facility]: 27-04-2617DCUODONIP A (1 of 2 - Risk 2-dose series) HEPATITIS A (1 of 2 - Risk 2-dose series)[facility]: 02-06-1959 Hepatitis A Vaccine (1 of 2 - Risk 2-dose series)Hepatitis A Vaccine (1 of 2 - Risk 2-dose series)[facility]: 22-30-5303QMNKOQIKO B (1 of 3 - Risk 3-dose series)HEPATITIS B (1 of 3 - Risk 3-dose series)[facility]: 94-52-7219FHGBLFEH VACCINE (1 of 2)SHINGRIX VACCINE (1 of 2)[facility] Start: 90-67-9568Uxomg microalbumin profileCleMetroHealth [facility] Medical Centertart: 02-06-1958 Anxiety ScreeningAnxiety ScreeningSelect [facility] Specialty [facility]: 04-51-8034Ahgrnknisy ScreeningDepression ScreeningSelect [facility] Specialty [facility]: 98-98-6047BGO (1 of 2 - Risk 2-dose series)MMR (1 of 2 - Risk 2-dose series)[facility]: 06-96-4212GHD Vaccine (1 of 2 - Risk 2-dose series)MMR Vaccine (1 of 2 - Risk 2- dose series)[facility]: 31-70-9313Gefavgsgstdpf B Vaccine: Consider Based On Risk (1 of 4 - Increased Risk)Meningococcal B Vaccine: Consider Based On Risk (1 of 4 - Increased Risk)[facility]: 55-97-0548GMURRAXOZGJFE B: Consider based on risk (1 of 4 - Increased Risk Bexsero 2-dose series) MENINGOCOCCAL B: Consider based on risk (1 of 4 - Increased Risk Bexsero 2-dose series)[facility]: 23-75-4189WOJBXCGIOFIIP B: Consider based on risk (1 of 4 - Increased Risk)MENINGOCOCCAL B: Consider based on risk (1 of 4 - Increased Risk)[facility]: 93-28-6541KPNGWXYXF A (1 of 2 - Risk 2- dose series)HEPATITIS A (1 of 2 - Risk 2-dose series)[facility] NorthRenal function 1999 panel - Serum or PlasmaAshtabula General HospitalRenal function 1999 panel - Serum or PlasmaLeConte Medical Center Immunizations Immunization DateImmunizationNotesCare ZkbxueyzXsnyulig44-23-2546swoooclnx virus vaccine, unspecified formulationChvesta Ward DPM Work Phone: [facility] HospitalNjrwqshmew76-12-5002ssfsvsguu, high dose seasonal, preservative-freeAshtabula General Hospital10-14-2024influenza virus vaccine, unspecified formulationPool Escobedo RNPremier Health Miami Valley Hospital North 16-06-5901pwxbnyhzu, high dose seasonal, preservative-freeAlex Nix Other [employer] Other 297812-38-3676wyxgkrsbt virus vaccine, unspecified formulationAshtabula General Hospital10-21-2022influenza (aIIV4) vaccine, age 65+ yr, quadrivalent, PF (FLUAD QUADRIVALENT)Lab/[facility] Work Phone: [facility] NorthNpjuzy64-46-1579wdsbvtfgc virus vaccine, split virus (incl. purified surface antigen)[employer] Other [facility] [employer] Other [id number] virus vaccine, unspecified formulationAshtabula General Hospital05-20-2022SARS-CoV-2 (COVID-19) mRNA-1273 vaccineZachary Zumbar [facility] Luther[facility] HospitalComment on above:Result Comment: 2022-05-02: SNI6164-13-2730SIAN-AhF-9 (COVID-19) mRNA-1273 vaccine Mikey Zumbar [facility] HospitalComment on above:Result Comment: 2022-05-02: PKM4182-41-5234ylccfvdkq nasal, unspecified formulation Lab/[facility] Work Phone: [facility] NorthItjegh03-72-0335psbryyiuc virus vaccine, unspecified formulationZasouthern kentucky rehabilitation hospital Zumbar [facility]10-28-2021influenza, high dose seasonal, preservative-Betty Yousif MD Work Phone: [facility] NorthDuhlst76-06-3810vgeouwyui virus vaccine, split virus (incl. purified surface antigen)[employer] Other [facility] [employer] Other 10020606-53-4610oqbnzqqhs virus vaccine, unspecified formulationAshtabula General Hospital03-02-2021COVID-19 vaccine, full dose (MODERNA)Atif Yousif MD Work Phone: [facility] NorthHgvaqa45-93-2724UNDPH-98 vaccine, full dose (MODERNA)Atif Yousif MD Work Phone: [facility] NorthGyoruo11-64-9701nbzabjegw, injectable, quadrivalent, preservative Betty Yousif MD Work Phone: [facility] NorthAkvybn13-48-3110ykfccfywc virus vaccine, split virus (incl. purified surface antigen)[employer] Other [employer] Other [id number] virus vaccine, unspecified formulationAshtabula General Hospital10-23-2019influenza, injectable, quadrivalent, preservative Betty Yousif MD Work Phone: [facility] NorthHymrlv64-72-3150yroqerjdt virus vaccine, split virus (incl. purified surface antigen)Alex Nix Other [facility] [employer] Other 10742763-04-0025wzvwjtsun virus vaccine, unspecified formulationAshtabula General Hospital10-30-2018influenza nasal, unspecified formulationG[facility] Work Phone: [facility] NorthJswnkn98-33-1802ytptixotd virus vaccine, unspecified formulationRanchester Amieumbco [facility]10-30-2018influenza, injectable, quadrivalent, preservative Betty Yousif MD Work Phone: [facility] NorthVpugrl19-25-3686owaupchrt virus vaccine, split virus (incl. purified surface antigen)Alex [employer] Other [facility] [employer] Other 10349546-89-7046cmllkohah virus vaccine, unspecified formulationAshtabula General Hospital10-16-2018Seasonal trivalent influenza vaccine, adjuvanted, preservative Betty Yousif MD Work Phone: [facility] NorthQwitcf86-16-1966acwcwdhyz, injectable, quadrivalent, preservative Betty Yousif MD Work Phone: [facility] NorthParjga94-27-1415tlbpslivm virus vaccine, split virus (incl. purified surface antigen)[employer] Other [employer] Other 10-752572-11-9093jakmsadju virus vaccine, unspecified formulationAshtabula General Hospital10-25-2017influenza, high dose seasonal, preservative-Betty Yousif MD Work Phone: [facility] NorthFkijvh70-33-5021gzmflhwmyrcy conjugate vaccine, 13 Faviola Yousif MD Work Phone: [facility] NorthVgeaaw24-23-9965homxodmopslf Conjugate, unspecified formulation; Translations: [Need for prophylactic vaccination ag ainst Streptococcus pneumoniae (pneumococcus)]Alex Nix Other [employer] Other 10043557-76-6918drjmkwxeiuhi polysaccharide vaccine, 23 Faviola Yousif MD Work Phone: [facility] NorthVkrbjq33-86-9140dqjekjjrd virus vaccine, split virus (incl. purified surface antigen)Alex [employer] Other [employer] Other 10-485266-07-5009krvzuusry virus vaccine, unspecified formulationAshtabula General Hospital10-14-2016influenza, high dose seasonal, preservative-Betty Yousif MD Work Phone: [facility] NorthKzmyvq57-89-3674oxczhwzam, injectable, quadrivalent, preservative Betty Yousif MD Work Phone: [facility] NorthSnhemu68-92-6108sobpkivvc, high dose seasonal, preservative-Betty Yousif MD Work Phone: [facility] NorthXewnqw38-00-2454dxnvofywkksr polysaccharide vaccine, 23 Vladimir Nix Other [facility] Payers DatePayer CategoryPayerPolicy [id number] [id number] Health Insurance [id number] Health Insurance [id number] 2005MedicareMEDICARE MEDICARE A AND B [id number] 2005-Present [phone] [facility] [address] [place] [address] [id number] 2005Medicare [id number] [id number] 2.16.840.3.578061.53171246-12-1020Zzfvkhy Health [id number] Qukh-mug9[id number] 2.16.840.6.687757.37366880-45-4636Gsgcgul [id number] 2.840.1.045889.3.57[id number] 2.16840.1.983378.3.57[id number] 2.16.840.1.821822.3.57[id number] 2.16840.1.508743.3.57[id number] 2.16.840.1.052716.3.57[id number] 2.16840.1.888075.3.57[id number] 2.16840.1.902972.3.57[id number] 2.16.840.1.872239.3.57[id number] 2.16.840.1.727782.3.57[id number] 2.16.840.1.714714.3.57[id number] 2.16.840.1.961611.3.57[id number] 2.16.840.1.380144.3.57[id number] 2.16.840.1.526736.3.57[id number] 2.16.840.1.734623.3.57[id number] 2..840.1.817243.3.57[id number] 2.16.840.1.433231.3.57[id number] 2.16.840.1.015552.3.579.2.1259Mediberger hospitalMedicare [id number] 2.0.1.059593.3.579.2.593 Social History DateTypeDetailFacilityStart: 08-18-2014 End: 13-90-2861Stnwgaw smoking status NHISNever smoked tobaccoPremier Health Miami Valley Hospital North Start: 08-18-2014 End: 65-75-7380Jyzvgev use and exposureSmokeless tobacco non-userSelect Medical Specialty Hospital [facility]hilltart: 2022 End: 72-48-1007Tcnjtkt intakeCurrent drinker of alcohol (finding)[facility]: 76-74-4999Ajbiztm SDOH Alcohol CommentsociallyCveterans health administration Clinic Start: 33-73-5309Wwo Assigned At BirthNot on fileSelect Medical Specialty Hospital - [facility]hillt[facility]: 01-28-2022 End: 67-97-6616Bsiovwdc to SARS-CoV-2 (event)Not sureSelect Medical Specialty Hospital - [facility]hillt[facility]: 02-06-2023 End: 99-51-7504Yds Assigned At [facility] [employer] Other Start: 06-08-2015 End: 60-73-1924Zdyxspg smoking statusEx-smoker (finding)[facility] HospitalComment on above:Quit 50 years agoStart: 02-06-2023 End: 99-86-1990Agewniu of Social functionSelect Medical Specialty Hospital - [facility]hillt[facility]: 30-80-6321Ssxir Depression Screening Btctnkjgak5Akozagngz ClinicStart: 08-18-2023 End: 26-75-8590Hkxkoft intakeLifetime non-drinker (finding)[facility] HealthcareStart: 27-85-7348Mzc Assigned At [facility] Campustart: 12-29-2024 End: 70-42-7249KozApppkj (finding)[facility] Andersonexual OrientationCleveland Clinic Luther[facility] Hospital NEGATED: Highlighted rowStart: NINFHistory of tobacco usePassive smokerPrem[facility] Health [facility] Medical Equipment Procedure CodeEquipment CodeEquipment Original TextEquipment IdentifierDates Start: 51-39-2421Symxbev (Onetouch Delica Plus Lancet) 30 gauge miscStart: 94-99-5716Fjpov Sugar Diagnostic (Onetouch Ultra Test) stripStart: 02-18-2024 End: 30-63-5405Yyszm Sugar Diagnostic (Onetouch Ultra Test) stripStart: 02-18-2024 End: 93-15-9876Ytgyj Sugar Diagnostic (Onetouch Ultra Test) stripStart: 02-18-2024 End: 95-51-4052Osczinj (Onetouch Delica Plus Lancet) 30 gauge miscStart: 27-06-1074Mjdsu Sugar Diagnostic (Onetouch Ultra Test) stripStart: 02-18-2024 End: 43-35-1827Jbvsa Sugar Diagnostic (Onetouch Ultra Test) stripStart: 02-18-2024 End: 01-21-3047Uwmac Sugar Diagnostic (Onetouch Ultra Test) stripStart: 02-18-2024 End: 33-55-4989Xsepvhl (Onetouch Delica Plus Lancet) 30 gauge miscStart: 80-08-8834Uufmx Sugar Diagnostic (Onetouch Ultra Test) stripStart: 02-18-2024 End: 16-93-8945Airbw Sugar Diagnostic (Onetouch Ultra Test) stripStart: 02-18-2024 End: 48-86-0117Jlayg Sugar Diagnostic (Onetouch Ultra Test) stripStart: 02-18-2024 End: 16-67-8770Padjhlf (Onetouch Delica Plus Lancet) 30 gauge miscStart: 85-55-7024Ptxln Sugar Diagnostic (Onetouch Ultra Test) stripStart: 02-18-2024 End: 09-60-4662Sgzlr Sugar Diagnostic (Onetouch Ultra Test) stripStart: 02-18-2024 End: 42-53-4672Bqbad Sugar Diagnostic (Onetouch Ultra Test) stripStart: 02-18-2024 End: 09-69-8526Haoen Sugar Diagnostic (Onetouch Ultra Test) stripStart: 25-11-6134Zkvmdop (Onetouch Delica Plus Lancet) 30 gauge miscStart: 06-24-2024 Pen Needle, Diabetic (Comfort Ez Pen K[place]al) 31 gauge x 1/4 needleStart: 29-25-4894Efkyk Sugar Diagnostic (Onetouch Ultra Test) stripStart: 02-18-2024 End: 80-23-2462Lcefx Sugar Diagnostic (Onetouch Ultra Test) stripStart: 04-15-2025 End: 46-84-2165Yomzx Sugar Diagnostic (Onetouch Ultra Test) stripStart: 02-18-2024 End: 30-24-4458Umnwz Sugar Diagnostic (Onetouch Ultra Test) stripStart: 02-18-2024 End: 69-19-3886Tpcqy Sugar Diagnostic (Onetouch Ultra Test) stripStart: 25-70-7822Rewkqcd (Onetouch Delica Plus Lancet) 30 gauge miscStart: 07-15-2025 Pen Needle, Diabetic (Comfort Ez Pen Kensal) 31 gauge x 1/4 needleStart: 23-65-9010Hxwqg Sugar Diagnostic (Onetouch Ultra Test) stripStart: 02-18-2024 End: 55-64-4304Jjaus Sugar Diagnostic (Onetouch Ultra Test) stripStart: 04-15-2025 End: 13-13-4496Jvulh Sugar Diagnostic (Onetouch Ultra Test) stripStart: 02-18-2024 End: 99-98-4426Yuown Sugar Diagnostic (Onetouch Ultra Test) stripStart: 02-18-2024 End: 85-59-4602Kzjrgeo (Onetouch Delica Plus Lancet) 30 gauge miscStart: 06-24-2024 End: 07-15-2025 Functional Status MeceUcvkzatosoFsloynVsavuihz20-58-1134Bdqrazqlxq StatusN/[facility]12-22-2022Functional StatusN/[facility]09-01-2022 Functional StatusN/[facility]07-14-2022Functional StatusN/A [facility]12-11-2014Are you deaf, or do you have serious difficulty hearingNo 09/29/2014 2:17 PM Jennifer Hernandez [facility] [id number] you blind, or do you have serious difficulty seeing, even when wearing glassesNo 09/29/2014 2:17 PM Jennifer Hernandez [facility] [id number] you have serious difficulty walking or climbing stairsYes 09/29/2014 2:17 PM Jennifer Hernandez [facility]12-11-2014Do you have difficulty dressing or bathingYes 09/29/2014 2:17 PM [facility]hy[facility]-72-2292Wlgbplz of a physical, mental, or emotional condition, do you have difficulty doing errands alone such as visiting a physician's office or shoppingYes 09/29/2014 2:17 PM Jennifer Hernandez [facility] Mental Status EpjgZhcaywvtxtDxufbhRxolavuz20-99-7778Ntcqqfg of a physical, mental, or emotional condition, do you have serious difficulty concentrating, remembering, or making decisionsNo 09/29/2014 2:17 PM VIDA Jennifer Cifuentes [facility] Clinical Notes 10-16-2021 to 08-05-2025 Note Date & AyemYodrWgenokmz98-89-0605 History of Present illness Narrative* Chantal Ward, [...] mg by mouth Daily, Disp: , Rfl: Mccleary 3 340 MG capsule delayed-release, 1 capsule [...] a #15 blade bilat documented in this [facility]09-17-2025 Evaluation note* Diagnosis Onset Date Resolution Status Admit Date Chronic kidney disease (CKD) acuteSeptember 2024 10:18amLumbar spondylosisacuteSeptember 2024 10:18amOpiate analgesic use agreement existsacuteSeptember 2024 10:18am OsteoporosisacuteSeptember 2024 10:18amPrimary hypertensionacuteSeptember 2024 10:18amType 2 diabetes mellitus with hyperglycemiaacuteSeptember 2024 10:18am [facility] Work Phone: 1(141) 178-630708-08-2025 History of Present illness Narrative* Kecia Temple [...] mg by mouth Daily, Disp: , Rfl: Mccleary 3 340 MG capsule delayed-release, 1 capsule [...] a #15 blade bilat documented in this encounterEastern Missouri State HospitalPthyishmrr70-56-9865 NoteHNO ID: [id number] Author: MARANDA SCHMID APRN.KATIE Service: ? Author [...] Patient is under the care of a human resources benefits assistant for CKD stage 3, with stable renal function. Recent labs show creatinine at 1.31 mg/dL, BUN at 29 mg/dL, and eGFR at 40 mL/min/1.73m?. She is seen annually by her human resources benefits assistant, with the frequency of visits previously every six months. Patient reports weight loss, currently weighing 147 lbs, and attributes this to loss of muscle mass. She experiences limitations in physical activity due to back and bone issues. She is taking a multivitamin that includes B12 and has reduced calcium supplementation as per her human resources benefits assistant's recommendation. MEDICATIONS: insulin glargine-yfgn (SEMGLEE) 100 unit/mL [...] 134 mg by mouth daily at bedtime. iwjpj-5u-vqj-epa-fish oil 300-1,000 mg cpDR Take by mouth. [...] Value 05/16/2025 190 0 (more content not included)...[facility]07-28-2025 History of Present illness Narrative* Maranda Schmid APRN.SPREADER OPERATOR - 05/16/2025 2:53 PM EDT PATIENT NAME: [...] Patient is under the care of a human resources benefits assistant for CKD stage 3, with stable renal function. Recent labs show creatinine at 1.31 mg/dL, BUN at 29 mg/dL, and eGFR at 40 mL/min/1.73m . She is seen annuallyby her human resources benefits assistant, with the frequency of visits previously every six months. Patient reports weight loss, currently weighing 147 lbs, and attributes this to loss of muscle mass. She experiences limitations in physical activity due to back and bone issues. She is taking a multivitamin that includes B12 and has reduced calcium supplementation as per her human resources benefits assistant's recommendation. MEDICATIONS: insulin glargine-yfgn (SEMGLEE) 100 unit/mL [...] 134 mg by mouth daily at bedtime. khowx-7p-mhy-epa-fish oil 300-1,000 mg cpDR Take by mouth. [...] months since September 2016, currently given at [facility]. Continue management per PCP. 6. Type 2 diabetes mellitus without complication, without long-term current use of insulin (HCC) - ICD9: 250.00, ICD10: E11.9 Stable off therapy. Continue management per PCP. She is now on insulin per PCP. Maranda Schmid APRN.KATIE I spent a total of 20 minutes on the date of the service which included preparing to see the patient, rmkg-so-kdfe patient care, completing clinical documentation, obtaining and/or reviewing separately obtained history, performing a medically appropriate examination, counseling and educating the pat ient/family/caregiver, ordering medications, tests, or procedures, independently interpreting results (not separately reported), and communicating results to the patient/family/caregiver. CC: Dr. Amin documented [facility]Prem[facility]* Diagnosis Iron deficiency- Primary Iron [...] Anemia, unspecified type documented in this encounter [facility]07-21-2025 Telephone encounter Note* Telephone Encounter - Pool Escobedo RN - 05/09/2025 2:29 PM EDT Labs pended for RTC 05/16/25 with Pool Escobedo RN [facility]07-21-2025 Miscellaneous Notes* Telephone Encounter - Pool Escobedo RN - 05/09/2025 2:29 PM EDT Labs pended for RTC 05/16/25 with Pool Escobedo RN documented in this encounterPrem[facility]07-21-2025 Evaluation note* Diagnosis Iron deficiency- Primary Iron deficiency anemia, unspecified Chronic renal impairment, stage 3 (moderate), unspecified whether stage 3a or 3b CKD (HCC) documented in this encounter [facility]06-12-2025 Telephone encounter Note* Telephone Encounter - Jose Miranda - 03/31/2025 7:18 AM EDT Patient coming in for lab only 04/06/25 with no orders. Please review and place needed lab. Thank you, Geri Miranda MLT [facility]06-12-2025 Miscellaneous Notes* Telephone Encounter - Jose Miranda - 03/31/2025 7:18 AM EDT Patient coming in for lab only 04/06/25 with no orders. Please review and place needed lab. Thank you, Geri Miranda MLT documented in this encounterPrem[facility]06-[facility]-2025 History of Present illness Narrative* Daxa Caldwell [...] mg by mouth Daily, Disp: , Rfl: Mccleary 3 340 MG capsule delayed-release, 1 capsule [...] a #15 blade bilat documented in this encounterEastern Missouri State HospitalDpneyfzktl74-37-0397 Telephone encounter Note* Telephone Encounter - Ramirez Rincon - 02/25/2025 10:23 AM EDT Call placed to patient - appointments cancelled and rescheduled to lab, 04/06 and lab and RV on 05/16. Patient has been notified of all revised appointments. Thanks! Ramirez Rincon [facility]05-09-2025 Miscellaneous Notes* Telephone Encounter - Ramirez Rincon [...] RN * Telephone Encounter - Maranda Schmid APRN.SPREADER OPERATOR - 02/24/2025 3:39 PM EDT Please notify [...] note were not included. documented in this encounterPrem[facility]05-08-2025 Telephone encounter Note * Telephone Encounter - Pool Escobedo RN - 02/24/2025 3:45 PM EDT Pt aware and agreeable to plan of care. She denies any questions, need or concerns at this time. PSS: Please call pt for scheduling needs, per Maranda below Pool Escobedo RN [facility]05-08-2025 Telephone encounter Note* Telephone Encounter - Maranda Schmid APRN.CNP - 02/24/2025 3:39 PM EDT Please notify patient that her iron studies are normal and there is no additional need for IV iron at this time. In order to reinitiate the Aranesp her hemoglobin needs to be Thank you, Maranda Schmid APRN.SPREADER OPERATOR [facility] Work Phone: [phone] Telephone encounter Note* Telephone Encounter - Pool Escobedo RN - 02/24/2025 8:03 AM EDT Please review labs and verify, no need for iron? Pool Escobedo RN [facility]05-06-2025 Telephone encounter Note* Telephone Encounter - Liliana Lovell - 02/22/2025 10:08 AM EDT Images from the original note were not included. [facility]05-05-2025 NoteHNO ID: [id number] Author: MARANDA SCHMID APRN.KATIE Service: ? Author [...] 134 mg by mouth daily at bedtime. qrsns-7l-yim-epa-fish oil 300-1,000 mg cpDR Take by mouth. [...] needed to maintain hemogl (more content not included)...[facility]05-05-2025 History of Present illness Narrative* Maranda Schmid APRN.SPREADER OPERATOR - 02/21/2025 6:50 PM EDT PATIENT NAME: [...] 134 mg by mouth daily at bedtime. rovun-3p-qfi-epa-fish oil 300-1,000 mg cpDR Take by mouth. [...] months since September 2016, currently given at [facility]. Continue management per PCP. 6. Type 2 diabetes mellitus without complication, without long-term current use of insulin ([facility]) - ICD9: 250.00, ICD10: E11.9 Stable off therapy. Continue management per PCP. Per patient request we will check her hemoglobin A1c today. Maranda Schmid APRN.CNP I spent a total of 30 minutes on the date of the service which included preparing to see the patient, gxjj-di-fmyr patient care, completing clinical documentation, obtaining and/or reviewing separately obtained history, performing a medically appropriate examination, counseling and educating the pat ient/family/caregiver, ordering medications, tests, or procedures, independently interpreting results (not separately reported), and communicating results to the patient/family/caregiver. CC: Dr. Amin documented in this encounterCleveland [id number] History of Present illness Narrative* Belinda Marks [...] were clear of cancer. documented in this encounterEastern Missouri State HospitalBfzqfyqcsa07-19-1363 History of Present illness Narrative* Belinda Marks [...] condition. Pathology was sent. documented in this encounterEastern Missouri State HospitalMwndihegol28-18-8966 History of Present illness Narrative* Belinda Marks [...] R/B/A/E for its removal. documented in this encounterEastern Missouri State HospitalPuroqpnluc95-94-4690 History of Present illness Narrative* Chantal Ward [...] mouth in the morning., Disp: , Rfl: Mccleary 3 340 MG capsule delayed-release, 1 capsule [...] a #15 blade bilat documented in this [facility]03-12-2025 Evaluation note* Diagnosis Onset Date Resolution Status Admit Date Acute dysfunction of left eustachian tub e acuteMarch 2024 10:25amBenign paroxysmal positional vertigo of right ear acuteMarch 2024 10:25amChronic kidney disease (CKD)acuteMarch 2024 10:25amLumbar spondylosisacuteMarch 2024 10:25amOpiate analgesic use agreement existsacuteMarch 2024 10:25amOsteoporosisacuteMarch 2024 10:25amPrimary hypertensionacuteMarch 2024 10:25amType 2 diabetes mellitus with hyperglycemiaacuteMarch 2024 10:25am [facility] Work Phone: 1(227) 337-420901-30-2025 History of Present illness Narrative* Chantal Ward, [...] mouth in the morning., Disp: , Rfl: Mccleary 3 340 MG capsule delayed-release, 1 capsule [...] a #15 blade bilat documented in this encounterEastern Missouri State HospitalPkffaoniib16-68-4754 History of Present illness Narrative* Chantal Ward [...] mouth in the morning., Disp: , Rfl: Mccleary 3 340 MG capsule delayed-release, 1 capsule [...] a #15 blade bilat documented in this encounterEastern Missouri State HospitalWvizyxkotz43-86-7900 NoteHNO ID: [id number] Author: MARANDA SCHMID APRN.SPREADER OPERATOR Service: ? Author Type: Nurse Practitioner Type: [...] 134 mg by mouth daily at bedtime. mbpzq-5o-oxe-epa-fish oil 300-1,000 mg cpDR Take by mouth. [...] Aranesp she has clinica (more content not included)...[facility]11-14-2024 History of Present illness Narrative* Maranda Schmid APRN.SPREADER OPERATOR - 09/02/2024 2:54 PM EST PATIENT NAME: [...] 134 mg by mouth daily at bedtime. zypry-3z-tep-epa-fish oil 300-1,000 mg cpDR Take by mouth. [...] months since September 2016, currently given at [facility]. Continue management per PCP. 6. Type 2 diabetes mellitus without complication, without long-term current use of insulin ([facility]) - ICD9: 250.00, ICD10: E11.9 Stable off therapy. Continue management per PCP. Per patient request we will check her hemoglobin A1c today. Maranda Schmid APRN.SPREADER OPERATOR CC: Dr. Dolores Benito spent a total of 20 minutes on the date of the service which included preparing to see the patient, zezl-gi-ogta patient care, completing clinical documentation, obtaining and/or reviewing separately obtained history, performing a medically appropriate examination, counseling and educating the pat ient/family/caregiver, ordering medications, tests, or procedures, independently interpreting results (not separately reported), and communicating results to the patient/family/caregiver. documented in this encounterPrem[facility]11-05-2024 Telephone encounter Note * Telephone Encounter - Val Buchanan MA - 08/24/2024 11:26 AM EST Patient coming in 09/02/24 for follow up with labs. Please add lab orders. Thanks. Val Buchanan MA [facility]11-05-2024 Miscellaneous Notes* Telephone Encounter - Val Buchanan MA - 08/24/2024 11:26 AM EST Patient coming in 09/02/24 for follow up with labs. Please add lab orders. Thanks. Val Buchanan MA documented in this encounterPrem[facility]09-20-2024 History of Present illness Narrative* Chantal Ward [...] mouth in the morning., Disp: , Rfl: Mccleary 3 340 MG capsule delayed-release, 1 capsule [...] a #15 blade bilat documented in this encounterEastern Missouri State HospitalDztgyvsecp39-56-4682 Telephone encounter Note* Telephone Encounter - Pool Escobedo RN - 02/27/2024 9:36 AM EDT Labs faxed to Dr Dinah Escobedo RN [facility]05-10-2024 Miscellaneous Notes* Telephone Encounter - Pool Escobedo RN - 02/27/2024 9:36 AM EDT Labs faxed to Dr Dinah Escobedo RN * Telephone Encounter - Pool Escobedo RN - 02/27/2024 9:35 AM EDT ----- Message from Atif Yousif MD sent at 02/27/2024 7:13 AM EDT ----- Please fax labs to the patient's PCP. documented in this encounterPrem[facility]05-10-2024 Telephone encounter Note * Telephone Encounter - Pool Escobedo RN - 02/27/2024 9:35 AM EDT ----- Message from Atif Yousif MD sent at 02/27/2024 7:13 AM EDT ----- Please fax labs to the patient's PCP. [facility]05-08-2024 History of Present illness Narrative* Atif Yousif [...] 134 mg by mouth daily at bedtime. mhtib-2k-qra-epa-fish oil 300-1,000 mg cpDR Take by mouth. [...] months since September 2016, currently given at [facility].. Continue management per PCP. 6. Type 2 diabetes mellitus without complication, without long-term current use of insulin (HCC) - ICD9: 250.00, ICD10: E11.9 Stable off therapy. Continue management per PCP. Per patient request we will check her hemoglobin A1c today. Atif Yousif MD CC: Dr. Amin documented in this encounterPrem[facility]02-08-2024 History of Present illness Narrative* Chantal Ward, [...] every 8 (eight) hours., Disp: , Rfl: Mccleary 3 340 MG capsule delayed-release, 1 capsule [...] with a #15 blade documented in this encounterEastern Missouri State HospitalRkokjeenyk35-63-2975 Evaluation note* Encounter Date Diagnosis Assessment Notes Treatment Notes Treatment Clinical Notes Oct, Lumbar spondylosis (ICD-10 - M47 .816) [facility] 10-28-2023 History general Narrative - Reported* Type Description Date Medical History ACUTE KIDNEY INJURY Medical HistoryHYPERTENSIVE KIDNEY DISEASE STAGE 3 A CHRONIC KIDNEY DISEASE Medical HistoryANEMIAMedical HistoryHISTORY OF GASTRIC ULCERMedical History PELVIS FRACTUREMedical HistoryLOW BACK FRACTURESSurgical [id number] HistoryLAMINECTOMYSurgical HistoryFORAMINOTMY L2-5Surgical XznsdsoXXMORUIAW6577 Surgical HistoryCOLONOSCOPY4/2019Surgical HistoryLEFT TKA4/2009Surgical History EGD7/2017Hospitalization HistorySEE ABOVEHospitalization HistoryELEVATED POTASSIUM LEVEL08/2021 [facility] 10-18-2023 History general Narrative - Reported* Type Description Date Medical History ACUTE KIDNEY INJURY Medical HistoryHYPERTENSIVE KIDNEY DISEASE STAGE 3 A CHRONIC KIDNEY DISEASE Medical HistoryANEMIAMedical HistoryHISTORY OF GASTRIC ULCERMedical History PELVIS FRACTUREMedical HistoryLOW BACK FRACTURESSurgical GevdogxDPR3375Djeuniow HistoryLAMINECTOMYSurgical HistoryFORAMINOTMY L2-5Surgical DolxkctDJEOMPDVE9167 Surgical HistoryCOLONOSCOPY4/2019Surgical HistoryLEFT TKA4/2009Surgical History EGD7/2017Hospitalization HistorySEE ABOVEHospitalization HistoryELEVATED POTASSIUM LEVEL08/2021 [facility] 10-17-2023 Evaluation note* Encounter Date Diagnosis Assessment Notes Treatment Notes Treatment Clinical Notes Jul, Lumbar spondylosis (ICD-10 - M47 .816) [facility] 09-07-2023 History of Present illness Narrative* Shanna Lantigua RN - 06/26/2023 10:44 AM EDT Hgb 11 today. Does not meet parameters for aranesp. No injection today. Pt given copy of labs and agrees with plan. Will make/keep next appointment. documented in this encounterPremier Health [facility]09-01-2023 Miscellaneous Notes* Telephone Encounter - Laurtia Brady RN - 06/20/2023 1:13 PM EDT Henrietta will be in clinic for a blood draw and possible aranesp on 06/26/23. Although she hasn't required the injection since January we should still maybe have aranesp orders in place in case she requiresit. It's up to you but wanted to make you aware we currently have no orders. Laurita Brady RN documented in this encounterPremier Health [facility]08-30-2023 Evaluation note* Encounter Date Diagnosis Assessment Notes [...] use, the patient reduces the risk for NH, CVA, HTN, cardiac dysrhythmias and sudden cardiac deaths.The patient is also aware of the association between ELAINA and morning headaches, daytime somnolence, fatigue and obesity, whichalso has been improved with continued use.The patient is compliant with treatment, wearing the equipment every night for greater than 4 hours.The patient is instructed to continue use of the CPAP forOSA treatment. [facility] 08-30-2023 History general Narrative - Reported* Type Description Date Medical History ACUTE KIDNEY INJURY Medical HistoryHYPERTENSIVE KIDNEY DISEASE STAGE 3 A CHRONIC KIDNEY DISEASE Medical HistoryANEMIAMedical HistoryHISTORY OF GASTRIC ULCERMedical History PELVIS FRACTUREMedical HistoryLOW BACK FRACTURESSurgical [id number] HistoryLAMINECTOMYSurgical HistoryFORAMINOTMY L2-5Surgical TkdtshmNOIGITDNY5172 Surgical HistoryCOLONOSCOPY01/2019Surgical HistoryLEFT TKA/2008Surgical History EGD7/2017Hospitalization HistorySEE ABOVEHospitalization HistoryELEVATED POTASSIUM LEVEL08/2021 [facility] 08-25-2023 History general Narrative - Reported* Type Description Date Medical History ACUTE KIDNEY INJURY Medical HistoryHYPERTENSIVE KIDNEY DISEASE STAGE 3 A CHRONIC KIDNEY DISEASE Medical HistoryANEMIAMedical HistoryHISTORY OF GASTRIC ULCERMedical History PELVIS FRACTUREMedical HistoryLOW BACK FRACTURESSurgical UogenqlMBW6630Tdcturqq HistoryLAMINECTOMYSurgical HistoryFORAMINOTMY L2-5Surgical BhwctwiYQDODRBCL5978 Surgical HistoryCOLONOSCOPY01/2019Surgical HistoryLEFT TKA/2008Surgical History EGD7/2017Hospitalization HistorySEE ABOVEHospitalization HistoryELEVATED POTASSIUM LEVEL08/2021 [facility] 08-10-2023 Evaluation note* Encounter Date Diagnosis [...] echocardiogram to rule out valvular heart disease. [facility] 08-10-2023 History general Narrative - Reported* Type Description Date Medical History ACUTE KIDNEY INJURY Medical HistoryHYPERTENSIVE KIDNEY DISEASE STAGE 3 A CHRONIC KIDNEY DISEASE Medical HistoryANEMIAMedical HistoryHISTORY OF GASTRIC ULCERMedical History PELVIS FRACTUREMedical HistoryLOW BACK FRACTURESSurgical MxewaanCPZ7085Xanhupus HistoryLAMINECTOMYSurgical HistoryFORAMINOTMY L2-5Surgical RioflxbLMDTTEGOV0227 Surgical HistoryCOLONOSCOPY4/2019Surgical HistoryLEFT TKA4/2009Surgical History EGD7/2017Hospitalization HistorySEE ABOVEHospitalization HistoryELEVATED POTASSIUM LEVEL08/2021 [facility] 07-27-2023 History general Narrative - Reported* Type Description Date Medical History ACUTE KIDNEY INJURY Medical HistoryHYPERTENSIVE KIDNEY DISEASE STAGE 3 A CHRONIC KIDNEY DISEASE Medical HistoryANEMIAMedical HistoryHISTORY OF GASTRIC ULCERMedical History PELVIS FRACTUREMedical HistoryLOW BACK FRACTURESSurgical YxzvrfvMLR4862Kmwbwydh HistoryLAMINECTOMYSurgical HistoryFORAMINOTMY L2-5Surgical PdddtkdAMDFNJQJJ6421 Surgical HistoryCOLONOSCOPY4/2019Surgical HistoryLEFT TKA4/2009Surgical History EGD7/2017Hospitalization HistorySEE ABOVEHospitalization HistoryELEVATED POTASSIUM LEVEL08/2021 [facility] 07-18-2023 History general Narrative - Reported* Type Description Date Medical History ACUTE KIDNEY INJURY Medical HistoryHYPERTENSIVE KIDNEY DISEASE STAGE 3 A CHRONIC KIDNEY DISEASE Medical HistoryANEMIAMedical HistoryHISTORY OF GASTRIC ULCERMedical History PELVIS FRACTUREMedical HistoryLOW BACK FRACTURESSurgical ObqngcxEMR6826Gdgocspn HistoryLAMINECTOMYSurgical HistoryFORAMINOTMY L2-5Surgical AmqazhfITXALCKHY0674 Surgical HistoryCOLONOSCOPY4/2019Surgical HistoryLEFT TKA4/2009Surgical History EGD7/2017Hospitalization HistorySEE ABOVEHospitalization HistoryELEVATED POTASSIUM LEVEL08/2021 [facility] 07-13-2023 History of Present illness Narrative* [...] 134 mg by mouth daily at bedtime. esnxe-3f-ojg-epa-fish oil 300-1,000 mg cpDR Take by mouth. [...] months since September 2016, currently given at [facility].. Continue management per PCP. Atif Yousif MD CC: Dr. Amin documented in this encounterPremier Health [facility]06-01-[facility]23 History of Present illness Narrative* Chelle Beckford RN - 03/20/2023 1:41 PM EDT Hgb 11.7, parameter not met for Aranesp. Pt notified and verbalizes understanding. Chelle Beckford RN documented in this encounterPremier Health [facility]05-30-2023 Evaluation note* Encounter Date Diagnosis Assessment Notes [...] right carotid artery (ICD-10 - R09.89)Check carotid [facility] 05-08-2023 Evaluation note* Encounter Date Diagnosis Assessment Notes Treatment Notes Treatment Clinical Notes February, Type 2 diabetes matilda itus with hyperglycemia, without long-term current use of insulin (ICD-10 - E11.65) [facility] 05-02-2023 History general Narrative - Reported* Type Description Date Medical History ACUTE KIDNEY INJURY Medical HistoryHYPERTENSIVE KIDNEY DISEASE STAGE 3 A CHRONIC KIDNEY DISEASE Medical HistoryANEMIAMedical HistoryHISTORY OF GASTRIC ULCERMedical History PELVIS FRACTUREMedical HistoryLOW BACK FRACTURESSurgical YegfbpoUIN3588Zfnojvha HistoryLAMINECTOMYSurgical HistoryFORAMINOTMY L2-5Surgical UiqvlzxWNFWEDNWZ5777 Surgical HistoryCOLONOSCOPY/2019Surgical HistoryLEFT TKA/2008Surgical History EGD7/2017Hospitalization HistorySEE ABOVEHospitalization HistoryELEVATED POTASSIUM LEVEL08/2021 [facility] Other 05-01-2023 Evaluation note* Encounter Date Diagnosis [...] of right carotid artery (ICD-10 - R09.89) [facility] Other 05-01-2023 History general Narrative - Reported* Type Description Date Medical History ACUTE KIDNEY INJURY Medical HistoryHYPERTENSIVE KIDNEY DISEASE STAGE 3 A CHRONIC KIDNEY DISEASE Medical HistoryANEMIAMedical HistoryHISTORY OF GASTRIC ULCERMedical History PELVIS FRACTUREMedical HistoryLOW BACK FRACTURESSurgical [id number] HistoryLAMINECTOMYSurgical HistoryFORAMINOTMY L2-5Surgical [id number] Surgical HistoryCOLONOSCOPY/2018Surgical HistoryLEFT TKA/2008Surgical History EGD7/2016Hospitalization HistorySEE ABOVEHospitalization HistoryELEVATED POTASSIUM LEVEL08/2021 [facility] Other 04-29-2023 History general Narrative - Reported* Type Description Date Medical History ACUTE KIDNEY INJURY Medical HistoryHYPERTENSIVE KIDNEY DISEASE STAGE 3 A CHRONIC KIDNEY DISEASE Medical HistoryANEMIAMedical HistoryHISTORY OF GASTRIC ULCERMedical History PELVIS FRACTUREMedical HistoryLOW BACK FRACTURESSurgical [id number] HistoryLAMINECTOMYSurgical HistoryFORAMINOTMY L2-5Surgical [id number] Surgical HistoryCOLONOSCOPY01/2019Surgical HistoryLEFT TKA/2008Surgical History EGD7/2016Hospitalization HistorySEE ABOVEHospitalization HistoryELEVATED POTASSIUM LEVEL08/2021 [facility] Other 04-20-2023 History of Present illness Narrative* [...] 134 mg by mouth daily at bedtime. yojde-3i-kog-epa-fish oil 300-1,000 mg cpDR Take by mouth. [...] months since September 2016, currently given at [facility].. Continue management per PCP. Atif Yousif MD CC: Dr. Amin documented [facility] History general Narrative - Reported* Type Description Date Medical History ACUTE KIDNEY INJURY Medical HistoryHYPERTENSIVE KIDNEY DISEASE STAGE 3 A CHRONIC KIDNEY DISEASE Medical HistoryANEMIAMedical HistoryHISTORY OF GASTRIC ULCERMedical History PELVIS FRACTUREMedical HistoryLOW BACK FRACTURESSurgical [id number] HistoryLAMINECTOMYSurgical HistoryFORAMINOTMY L2-5Surgical [id number] Surgical HistoryCOLONOSCOPY4/2019Surgical HistoryLEFT TKA4/2009Surgical History EGD7/2016Hospitalization HistorySEE ABOVEHospitalization HistoryELEVATED POTASSIUM LEVEL08/2021 [facility] Other 04-10-2023 History general Narrative - Reported* Type Description Date Medical History ACUTE KIDNEY INJURY Medical HistoryHYPERTENSIVE KIDNEY DISEASE STAGE 3 A CHRONIC KIDNEY DISEASE Medical HistoryANEMIAMedical HistoryHISTORY OF GASTRIC ULCERMedical History PELVIS FRACTUREMedical HistoryLOW BACK FRACTURESSurgical [id number] HistoryLAMINECTOMYSurgical HistoryFORAMINOTMY L2-5Surgical [id number] Surgical HistoryCOLONOSCOPY4/2019Surgical HistoryLEFT TKA4/2009Surgical History EGD7/2016Hospitalization HistorySEE ABOVEHospitalization HistoryELEVATED POTASSIUM LEVEL08/2021 [facility] Other 02-27-2023 Evaluation note* Encounter Date Diagnosis [...] M19.072) Hydrocodone as needed Nov,OtherHydrocodone as needed [facility] Other 02-08-2023 Evaluation note* Encounter Date Diagnosis [...] poor absorption. I have ordered oral magnesium. [facility] Other 01-23-2023 History of Present illness Narrative* Atif Yousif MD - 11/11/2022 7:43 AM EST PATIENT NAME: Henrietta Gross DATE: 11/11/2022 PRIMARY CARE PHYSICIAN: Dr. Alex Nix OTHER PHYSICIANS: Dr. Holden (pain management), Dr. Flores, Dr. mAin Portions of this encounter note have been [...] 134 mg by mouth daily at bedtime. xiyov-7m-nla-epa-fish oil 300-1,000 mg cpDR Take by mouth. [...] months since September 2016, currently given at [facility].. Continue management per PCP. Atif Yousif MD CC: Dr. Amin documented in this encounterPrem[facility]11-28-[facility]22 History of Present illness Narrative* Maranda Schmid APRN.SPREADER OPERATOR - 09/16/2022 3:00 PM EST PATIENT NAME: [...] 134 mg by mouth daily at bedtime. hnlga-4r-kze-epa-fish oil 300-1,000 mg cpDR Take by mouth. [...] months since September 2016, currently given at [facility].. Continue management per PCP. Maranda Schmid APRN.CNP CC: Dr. Dolores Benito spent a total of 30 minutes on the date of the service which included preparing to see the patient, [id number] patient care, completing clinical documentation, obtaining and/or reviewing separately obtained history, performing a medically appropriate examination, counseling and educating the pat ient/family/caregiver, ordering medications, tests, or procedures, independently interpreting results (not separately reported), and communicating results to the patient/family/caregiver. documented in this encounterPrem[facility]09-19-2022 History of Present illness Narrative* Atif Yousif [...] 134 mg by mouth daily at bedtime. eekoo-9a-bbv-epa-fish oil 300-1,000 mg cpDR Take by mouth. [...] renal function. I suggested she ask her human resources benefits assistant (Dr. Amin) for his recommendations. 4. 555.9 Crohn's disease Currently stable. Continue management per PCP/gastroenterology. 5. Osteoporosis The patient has been on Prolia every 6 months since September 2016, currently given at [facility].. Continue management per PCP. Atif Yousif MD CC: Dr. Amin documented in this encounterPrem[facility]08-02-2022 Evaluation note* Encounter Date Diagnosis Assessment Notes [...] goal. Continue to follow with the hematology. [facility] Other 08-02-2022 History general Narrative - Reported* Type Description Date Medical History ACUTE KIDNEY INJURY Medical HistoryHYPERTENSIVE KIDNEY DISEASE STAGE 3 A CHRONIC KIDNEY DISEASE Medical HistoryANEMIAMedical HistoryHISTORY OF GASTRIC ULCERMedical History PELVIS FRACTUREMedical HistoryLOW BACK FRACTURESSurgical [id number] HistoryLAMINECTOMYSurgical HistoryFORAMINOTMY L2-5Surgical [id number] Surgical HistoryCOLONOSCOPY01/2019Surgical HistoryLEFT TKA/2008Surgical History EG/2016Hospitalization HistorySEE ABOVEHospitalization HistoryELEVATED POTASSIUM LEVEL08/2021 [facility] Other 06-27-2022 History of Present illness Narrative* [...] 134 mg by mouth daily at bedtime. ucodu-0l-xdg-epa-fish oil 300-1,000 mg cpDR Take by mouth. [...] months since September 2016, currently given at [facility].. Continue management per PCP. Atif Yousif MD CC: Dr. Amin documented in this encounterPrem[facility]04-21-2022 History of Present illness Narrative* Atif Yousif [...] 134 mg by mouth daily at bedtime. yujfx-6l-uco-epa-fish oil 300-1,000 mg cpDR Take by mouth. [...] months since September 2016, currently given at [facility].. Continue management per PCP. Atif Yousif MD CC: Dr. Amin documented in this encounterPrem[facility]03-29-2022 Evaluation note* Encounter Date Diagnosis Assessment Notes [...] goal. Continue to follow with the hematology. [facility] [employer] Other 12-28-2021 Evaluation note* Encounter Date Diagnosis [...] and vitamin D are within the goal. [facility] Other Evaluation + Plan note Future Appointments Appointment Date:06/20/2022 02:00:00 PM Scheduled Provider:Mikey Holden MD Location:[facility] Future Appointments Appointment Date:08/29/2022 01:00:00 PM Scheduled Provider:Mikey Holden MD Location:FT.[facility] Appointment Type:Pain Management - [facility] Future Appointments Appointment Date:12/12/2022 09:15:00 AM Scheduled Provider:Mikey Holden MD Location:FT.[facility] Appointment Type:[facility] Management - [facility]* Diagnosis Anemia of chronic renal failure, stage 3b (HCC)- Primary Chronic renal impairment, stage 3b (HCC) 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 Essential hypertension Unspecified essential hypertension [facility]* Diagnosis Anemia of chronic renal failure, stage 3b (HCC)- Primary documented in this encounter [facility]* Diagnosis Iron deficiency- Primary Iron deficiency anemia, unspecified documented in this encounter [facility]* Diagnosis Anemia of chronic renal failure, stage 3b (HCC)- Primary documented in this encounter [facility]* Diagnosis Anemia of chronic renal failure, stage 3b (HCC)- Primary Chronic renal impairment, stage 3b (HCC) 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 Essential hypertension Unspecified essential hypertension documented in this encounter [facility] noteNo InformationNort [employer] Other Evaluation note* Diagnosis Anemia of chronic renal failure, stage 3b (HCC)- Primary Chronic renal impairment, stage 3b (HCC) Iron 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 to blood loss (chronic) documented in this encounter [facility]* Diagnosis Anemia of chronic renal failure, stage 3b (HCC)- Primary documented in this encounter [facility]* Diagnosis Anemia of chronic renal failure, stage 3b (HCC)- Primary 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 Essential hypertension Unspecified essential hypertension documented in this encounter [facility]* Diagnosis Anemia of chronic renal failure, stage 3b (HCC)- Primary Chronic renal impairment, stage 3b (HCC) History of iron deficiency Personal history of diseases of blood and blood-forming organs documented in this encounter [facility]* Diagnosis Anemia of chronic renal failure, stage 3b (HCC)- Primary Chronic renal impairment, stage 3b (HCC) History of iron deficiency Personal history of diseases of blood and blood-forming organs documented in this encounter [facility]* Diagnosis Anemia of chronic renal failure, stage 3b (HCC)- Primary Chronic renal impairment, stage 3b (HCC) History of iron deficiency Personal history of diseases of blood and blood-forming organs Primary osteoarthritis involving multiple joints Essential hypertension Unspecified essential hypertension documented in this encounter [facility]* Diagnosis Anemia of chronic renal failure, stage 3b (HCC)- Primary documented in this encounter [facility]* Diagnosis Idiopathic progressive polyneuropathy- Primary Onychomycosis Dermatophytosis of nail Corns and callosities [facility]* Diagnosis Onset Date Resolution Status Anemia of renal disease acuteBen hy kid w cr kid I-IVacuteChronic kidney disease (CKD), stage IV (severe)acuteHyperuricemiaacuteHypomagnesemiaacuteSecondary hyperparathyroidism acuteType 2 diabetes mellitus with diabetic chronic kidney diseaseacute [facility] Work Phone: Evaluation note* Diagnosis Anemia of chronic renal failure, stage 3b (HCC) (HCC)- Primary Chronic renal impairment, stage 3b (HCC) History of iron deficiency Personal history of diseases of blood and blood-forming organs Type 2 diabetes mellitus without complication, without long-term current use of insulin (HCC) documented in this encounter [facility]* Diagnosis Onset Date Resolution Status Chronic kidney disease (CKD) acuteHypercholesterolemiaacuteLumbar spondylosisacuteOpiate analgesic use agreement existsacuteOsteoporosisacutePrimary hypertensionacuteType 2 diabetes mellitus with hyperglycemiaacuteAnemia of renal diseaseacuteBen hy kid w cr kid I-IVacuteCKD (chronic kidney disease) stage 3, GFR 30-59 ml/minacute HyperuricemiaacuteHypomagnesemiaacuteSecondary hyperparathyroidismacuteType 2 diabetes mellitus with hyperglycemiaacute [facility] Work Phone: Evaluation note* Diagnosis Onset Date Resolution Status Chronic kidney disease (CKD) acuteHypercholesterolemiaacuteLumbar spondylosisacuteOpiate analgesic use agreement existsacuteOsteoporosisacutePrimary hypertensionacuteType 2 diabetes mellitus with hyperglycemiaacuteAnemia of renal diseaseacuteBen hy kid w cr kid I-IVacuteCKD (chronic kidney disease) stage 3, GFR 30-59 ml/minacute HyperuricemiaacuteHypomagnesemiaacuteSecondary hyperparathyroidismacuteType 2 diabetes mellitus with diabetic [facility] Work [facility]: Evaluation note* Diagnosis Anemia of chronic renal failure, stage 3b (HCC) (HCC)- Primary documented in this encounter [facility]* Diagnosis Iron deficiency anemia due to [...] tract location (HCC) documented in this encounter [facility]* Diagnosis Idiopathic progressive polyneuropathy- Primary Onychomycosis Dermatophytosis of nail Corns and callosities documented in this encounter [facility] HealthcareEvaluation note* Diagnosis Idiopathic progressive polyneuropathy- Primary Onychomycosis Dermatophytosis of nail Corns and callosities Pain in toes of both feet Pain in both feet documented in this encounter [facility] HealthcareEvaluation note* Diagnosis Onset Date Resolution Status Admit Date Chronic kidney disease (CKD) acuteMarch 2024 10:25amHypercholesterolemiaacuteMarch 2024 10:25am Lumbar spondylosisacuteMarch 2024 10:25amOpiate analgesic use agreement existsacuteDecch 2024 10:25amOsteoporosisacuteMarch 2024 10:25am Primary hypertensionacuteMarch 2024 10:25amType 2 diabetes mellitus with hyperglycemiaacuteDecch 2024 10:25am [facility] Work Phone: Evaluation note* Diagnosis Basal cell carcinoma (BCC) of right lower eyelid- Primary Malignant neoplasm of skin of eyelid, including canthus Other malignant neoplasm of skin of eyelid, including canthus Hemorrhage of eyelid documented in this encounter [facility] HealthcareEvaluation note* Diagnosis Idiopathic progressive polyneuropathy- Primary Onychomycosis Dermatophytosis of nail Corns and callosities Pain in both feet documented in this encounter [facility] HealthcareEvaluation note* Diagnosis Malignant neoplasm of skin of eyelid, including canthus- Primary Other malignant neoplasm of skin of eyelid, including canthus Basal cell carcinoma (BCC) of right lower eyelid Hemorrhage of eyelid documented in this encounter [facility] HealthcareEvaluation note* Diagnosis Basal cell carcinoma (BCC) of right lower eyelid- Primary Malignant neoplasm of skin of eyelid, including canthus Other malignant neoplasm of skin of eyelid, including canthus documented in this encounter [facility] HealthcareEvaluation note* Diagnosis Iron deficiency- Primary Iron deficiency anemia, unspecified Chronic renal impairment, stage 3 (moderate), unspecified whether stage 3a or 3b CKD (HCC) Type 2 diabetes mellitus without complication, without long-term current use of insulin (HCC) Crohn's disease without complication, unspecified gastrointestinal tract location (HCC) documented in this encounter [facility]* Diagnosis Iron deficiency anemia due to chronic blood loss- Primary Iron deficiency anemia secondary to blood loss (chronic) Chronic renal impairment, stage 3 (moderate), unspecified whether stage 3a or 3b CKD (HCC) Iron deficiency Iron deficiency anemia, unspecified documented in this encounter [facility]* Diagnosis Idiopathic progressive polyneuropathy- Primary Onychomycosis Dermatophytosis of nail Corns and callosities documented in this encounter [facility] HealthcareEvaluation note* Diagnosis Onset Date Resolution Status Admit Date Chronic kidney disease (CKD) acuteSeptember 2024 10:18amLumbar spondylosisacuteSeptember 2024 10:18amOpiate analgesic use agreement existsacuteSeptember 2024 10:18am OsteoporosisacuteSeptember 2024 10:18amPrimary hypertensionacuteSeptember 2024 10:18amType 2 diabetes mellitus with hyperglycemiaacuteSeptember 2024 10:18am [facility] Work Phone: History general Narrative - Reported* Type Description Date Medical History ACUTE KIDNEY INJURY Medical HistoryHYPERTENSIVE KIDNEY DISEASE STAGE 3 A CHRONIC KIDNEY DISEASE Medical HistoryANEMIAMedical HistoryHISTORY OF GASTRIC ULCERSurgical HistoryTAH 1971Surgical HistoryLAMINECTOMYSurgical HistoryFORAMINOTMY L2-5Surgical History [id number] HistoryCOLONOSCOPY4/2019Surgical HistoryLEFT TKA4/2009 Surgical HistoryEGD7/2017Hospitalization HistorySEE ABOVEHospitalization History ELEVATED POTASSIUM LEVEL08/2021 [facility] Other History general Narrative - Reported* Type Description Date Medical History ACUTE KIDNEY INJURY Medical HistoryHYPERTENSIVE KIDNEY DISEASE STAGE 3 A CHRONIC KIDNEY DISEASE Medical HistoryANEMIAMedical HistoryHISTORY OF GASTRIC ULCERMedical History PELVIS FRACTUREMedical HistoryLOW BACK FRACTURESSurgical [id number] HistoryLAMINECTOMYSurgical HistoryFORAMINOTMY L2-5Surgical [id number] Surgical HistoryCOLONOSCOPY/2019Surgical HistoryLEFT TKA4/2009Surgical History EGD7/2016Hospitalization HistorySEE ABOVEHospitalization HistoryELEVATED POTASSIUM LEVEL08/2021 [facility] Other Hospital course Narrative No data available for this section [facility] No data available for this section [facility] HospitalProgress note No data available for this section [facility] HospitalReason for referral (narrative)No reason for referral information availableWestern [facility] Hospital Work Phone: Medications Administered Section Medication OrderMAR ActionAction DateDoseRateSite Darbepoetin Rosemary In Polysorbat 200 mcg injection (ARANESP) 200 mcg, SUBCUTANEOUS, ONCE, 1 dose, On Dilia 12/22 at 1500, Protect from light REFRIGERATE Given02/28/2022 2:48 PM [id number] mcgArm, RightMedication OrderMAR ActionAction DateDoseRateSite Darbepoetin Rosemary In Polysorbat 200 mcg injection (ARANESP) 200 mcg, SUBCUTANEOUS, ONCE, 1 dose, On Fri04/15/22 at 1600, Protect from light REFRIGERATE Given04/15/2022 3:56 PM [id number] mcgArm, RightMedication OrderMAR ActionAction DateDoseRateSite Darbepoetin Rosemary In Polysorbat 200 mcg injection (ARANESP) 200 mcg, SUBCUTANEOUS, ONCE, 1 dose, On Fri09/16/22 at 1530, Protect from light REFRIGERATE Given09/16/2022 3:24 PM [id number] mcgArm, LeftMedication OrderMAR ActionAction Date DoseRateSite Darbepoetin Rosemary In Polysorbat 200 mcg injection (ARANESP) 200 mcg, SUBCUTANEOUS, ONCE, 1 dose, On Fri12/25/22 at 1000, Protect from light REFRIGERATE Given12/25/2022 10:00 AM [id number] mcgArm, RightMedication OrderMAR ActionAction DateDoseRateSite Darbepoetin Rosemary In Polysorbat 200 mcg injection (ARANESP) 200 mcg, SUBCUTANEOUS, ONCE, 1 dose, On Fri02/06/23 at 1000, Protect from light REFRIGERATE Given02/06/2023 9:58 AM [id number] mcgArm, Right Summary Purpose Family History Relationship [...] 10: 25am Opiate analgesic use agreement exists [facility] 2024 10:25am Osteoporosis December 29, 2024 10: [...] 10: 25am Opiate analgesic use agreement exists [facility] 2024 10:25am Osteoporosis December 29, 2024 10: [...] or prosecute any alcohol or drug abuse patient.[facility] NorthIn the event this information is protected by the Federal Confidentiality of Alcohol and Drug Abuse Patient Records regulations: The Federal rules restrict any use of the information to criminally investigate or prosecute any alcohol or drug abuse patient.[facility] NorthIn the event this information is protected by the Federal Confidentiality of Alcohol and Drug Abuse Patient Records regulations: The Federal rules restrict any use of the information to criminally investigate or prosecute any alcohol or drug abuse patient.[facility] NorthIn the event this information is protected by the Federal Confidentiality of Alcohol and Drug Abuse Patient Records regulations: The Federal rules restrict any use of the information to criminally investigate or prosecute any alcohol or drug abuse patient.[facility] NorthIn the event this information is protected by the Federal Confidentiality of Alcohol and Drug Abuse Patient Records regulations: The Federal rules restrict any use of the information to criminally investigate or prosecute any alcohol or drug abuse patient.[facility] NorthIn the event this information is protected by the Federal Confidentiality of Alcohol and Drug Abuse Patient Records regulations: The Federal rules restrict any use of the information to criminally investigate or prosecute any alcohol or drug abuse patient.[facility] NorthIn the event this information is protected by the Federal Confidentiality of Alcohol and Drug Abuse Patient Records regulations: The Federal rules restrict any use of the information to criminally investigate or prosecute any alcohol or drug abuse patient.[facility] NorthIn the event this information is protected by the Federal Confidentiality of Alcohol and Drug Abuse Patient Records regulations: The Federal rules restrict any use of the information to criminally investigate or prosecute any alcohol or drug abuse patient.[facility] NorthIn the event this information is protected by the Federal Confidentiality of Alcohol and Drug Abuse Patient Records regulations: The Federal rules restrict any use of the information to criminally investigate or prosecute any alcohol or drug abuse patient.[facility] NorthIn the event this information is protected by the Federal Confidentiality of Alcohol and Drug Abuse Patient Records regulations: The Federal rules restrict any use of the information to criminally investigate or prosecute any alcohol or drug abuse patient.[facility] NorthIn the event this information is protected by the Federal Confidentiality of Alcohol and Drug Abuse Patient Records regulations: The Federal rules restrict any use of the information to criminally investigate or prosecute any alcohol or drug abuse patient.[facility] the event this information is protected by the Federal Confidentiality of Alcohol and Drug Abuse Patient Records regulations: The Federal rules restrict any use of the information to criminally investigate or prosecute any alcohol or drug abuse patient.[facility] NorthIn the event this information is protected by the Federal Confidentiality of Alcohol and Drug Abuse Patient Records regulations: The Federal rules restrict any use of the information to criminally investigate or prosecute any alcohol or drug abuse patient.[facility] NorthIn the event this information is protected by the Federal Confidentiality of Alcohol and Drug Abuse Patient Records regulations: The Federal rules restrict any use of the information to criminally investigate or prosecute any alcohol or drug abuse patient.[facility] NorthIn the event this information is protected by the Federal Confidentiality of Alcohol and Drug Abuse Patient Records regulations: The Federal rules restrict any use of the information to criminally investigate or prosecute any alcohol or drug abuse patient.[facility] NorthIn the event this information is protected by the Federal Confidentiality of Alcohol and Drug Abuse Patient Records regulations: The Federal rules restrict any use of the information to criminally investigate or prosecute any alcohol or drug abuse patient.[facility] NorthIn the event this information is protected by the Federal Confidentiality of Alcohol and Drug Abuse Patient Records regulations: The Federal rules restrict any use of the information to criminally investigate or prosecute any alcohol or drug abuse patient.[facility] NorthIn the event this information is protected by the Federal Confidentiality of Alcohol and Drug Abuse Patient Records regulations: The Federal rules restrict any use of the information to criminally investigate or prosecute any alcohol or drug abuse patient.[facility] NorthIn the event this information is protected by the Federal Confidentiality of Alcohol and Drug Abuse Patient Records regulations: The Federal rules restrict any use of the information to criminally investigate or prosecute any alcohol or drug abuse patient.[facility] NorthIn the event this information is protected by the Federal Confidentiality of Alcohol and Drug Abuse Patient Records regulations: The Federal rules restrict any use of the information to criminally investigate or prosecute any alcohol or drug abuse patient.[facility] NorthIn the event this information is protected by the Federal Confidentiality of Alcohol and Drug Abuse Patient Records regulations: The Federal rules restrict any use of the information to criminally investigate or prosecute any alcohol or drug abuse patient.[facility] NorthIn the event this information is protected by the Federal Confidentiality of Alcohol and Drug Abuse Patient Records regulations: The Federal rules restrict any use of the information to criminally investigate or prosecute any alcohol or drug abuse patient.[facility] NorthIn the event this information is protected by the Federal Confidentiality of Alcohol and Drug Abuse Patient Records regulations: The Federal rules restrict any use of the information to criminally investigate or prosecute any alcohol or drug abuse patient.[facility] NorthIn the event this information is protected by the Federal Confidentiality of Alcohol and Drug Abuse Patient Records regulations: The Federal rules restrict any use of the information to criminally investigate or prosecute any alcohol or drug abuse patient.[facility] NorthIn the event this information is protected by the Federal Confidentiality of Alcohol and Drug Abuse Patient Records regulations: The Federal rules restrict any use of the information to criminally investigate or prosecute any alcohol or drug abuse patient.[facility] Reason for Visit (unrecogniz ed section and content) ReasonCommentsAnemia1 month follow upSpecialtyDiagnoses / ProceduresReferred By ContactReferred To Contact Diagnoses Anemia of chronic renal failure, stage 3b (HCC) Atif Yousif MD [address] [place] [address] [place] [address] [address] [place] [address] Referral IDStatusReasonStart DateExpiration DateVisits RequestedVisits [id number]/11/20224/11/[id number] OrdersReason CommentsAnemiaReasonCommentsAnemia8 week follow upSpecialtyDiagnoses / ProceduresReferred By ContactReferred To Contact Diagnoses Anemia of chronic renal failure, stage 3b (HCC) Procedures DARBEPOETIN ROSEMARY, NON-ESRD Atif Yousif MD [address] [place] [address] [address] [place] [address] Referral IDStatusReasonStart DateExpiration DateVisits RequestedVisits [id number] IDStatusReason Start DateExpiration DateVisits RequestedVisits [id number] Clinical Info [id number] month follow up ReasonCommentsAnemiaFollow upReferral IDStatusReasonStart DateExpiration Date Visits RequestedVisits [id number]/11/20224/11/[id number] CommentsOrdersReasonCommentsToenail CareReasonCommentsAnemia6 month follow up ReasonCommentsResultsReasonCommentsFollow-upNailcareReasonCommentsEye Problem ReasonCommentsProcedureReasonCommentsPost-op Follow-upReasonOnset DateComments Lab Mgbyhr8903/31/2025 Care Teams (unrecognized sec tion and content) Team MemberRelationshipSpecialtyStart DateEnd Date Alex Nix DO PCP - GeneralInternal Opyphohi68/19/12Team MemberRelationshipSpecialtyStart Date End Date Ball, Alex E, DO PCP - GeneralInternal Uzwxvmzx10/19/12Team MemberRelationshipSpecialtyStart Date End Date Alex Nix, DO PCP - GeneralInternal Nnizjkem30/19/12Team MemberRelationshipSpecialtyStart Date End Date Alex Nix, DO PCP - GeneralInternal Mueukdkg22/19/12Team MemberRelationshipSpecialtyStart Date End Date Alex Nix, DO PCP - GeneralInternal Sqfxbpne72/19/12Team MemberRelationshipSpecialtyStart Date End Date Alex Nix, DO PCP - GeneralInternal Xnpujqpy42/19/12Team MemberRelationshipSpecialtyStart Date End Date Alex Nix, DO PCP - GeneralInternal Yedgbzdu60/19/12Team MemberRelationshipSpecialtyStart Date End Date Alex Nix, DO PCP - GeneralInternal Jofyypvc98/19/12Team MemberRelationshipSpecialtyStart Date End Date Alex Nix, DO PCP - GeneralInternal Wqegildd45/19/12Team MemberRelationshipSpecialtyStart Date End Date Alex Nix, DO PCP - GeneralInternal Tklyocne28/19/12Team MemberRelationshipSpecialtyStart Date End Date Alex Nix, DO PCP - GeneralInternal Wxanxfey17/19/12Team MemberRelationshipSpecialtyStart Date End Date Alex Nix DO PCP - GeneralInternal Sznmuhdg76/19/12Team MemberRelationshipSpecialtyStart Date End Date Alex Nix DO PCP - GeneralInternal Ynxottxl02/19/12Team MemberRelationshipSpecialtyStart Date End Date Alex Nix MD [address] [place] [address] [facility] - [facility]06/06/23Team MemberRelationshipSpecialtyStart Date End Date Alex Nix MD [address] [place] [address] PCP - [facility]06/06/23 Team Status: Active Member Role Status Dates Natividad Corona MD Primary Care Provider Active Team Status: Inactive Member Role Status Dates Alex Nix DO Attending Provider Active Sta rt: September 18, 2023 End: September 18, 2023 Team Status: Active Member Role Status Dates Alex Nix DO Attending Provider Active Sta rt: December 01, 2023 Natividad Corona [facility] ProviderActiveStart: December 01, 2023 Team Status: Inactive Member Role Status Dates Natividad Corona MD Primary Care Provider Active Start: December 09, 2023 End: December 09[place] ProviderActiveStart: December 09, 2023 End: December 09, 2023Team MemberRelationshipSpecialtyStart DateEnd Date Alex Nix DO PCP - GeneralInternal Odxrjbup66/19/12Team MemberRelationshipSpecialtyStart Date End Date Alex Nix DO PCP - GeneralInternal Tpdppndy56/19/12 Team Status: Active Member Role Status Dates [...] : July 12, 2024 End: July 12enDarshan HungH[facility] ProviderActiveStart: July 12, 2024 End: July 12, 2024 Team Status: Inactive Member Role Status Dates Alex Nix DO Primary Care Provide r, Attending Provider Active Start: August 02, 2024 End: August 02, 2024Team MemberRelationshipSpecialtyStart DateEnd Date Alex Nix DO [facility] Pigjkkpz30/19/12Team MemberRelationshipSpecialtyStart Date End Date Alex Nix DO PCP - GeneralInternal Nakhaxzh58/19/12Team MemberRelationshipSpecialtyStart Date End Date Alex Nix MD [address] [place] [address] PCP - GeneralInternal Medicine06/06/23Team MemberRelationshipSpecialtyStart Date End Date Alex Nix MD [address] [place] [address] PCP - GeneralInternal Medicine06/06/23Team MemberRelationshipSpecialtyStart Date End Date Alex Nix MD [address] [place] [address] PCP - GeneralInternal Medicine06/06/23Team MemberRelationshipSpecialtyStart Date End Date Alex Nix MD [address] [place] [address] PCP - GeneralInternal Medicine06/06/23 Team Status: Active Member Role Status Dates Alex Nix DO Primary Care Provide r, Attending Provider Active Start: December 22, 2024 Team Status: Inactive Member Role Status Dates Alex Nix DO Primary Care Provide r, Attending Provider Active Start: December 29, 2024 End: December 29, 2024Team MemberRelationshipSpecialtyStart DateEnd Date Alex Nix MD [address] [place] [address] PCP - GeneralInternal Medicine06/06/23Team MemberRelationshipSpecialtyStart Date End Date Alex Nix MD [address] [place] [address] PCP - GeneralInternal Medicine06/06/23Team MemberRelationshipSpecialtyStart [...] Date Alex Nix DO PCP - GeneralInternal Cdbzargf44/19/12Team MemberRelationshipSpecialtyStart Date End Date Alex Nix DO [address] [place] [address] PCP - [facility]03/25/25Team MemberRelationshipSpecialtyStart Date End Date Alex Nix DO [address] [place] [address] PCP - [facility]03/25/25Team MemberRelationshipSpecialtyStart Date End Date Alex Nix DO [facility] - [facility] Ydlblqdi62/19/12Team MemberRelationshipSpecialtyStart Date End Date Alex Nix DO [address] [place] [address] PCP - [facility]03/25/25 Team Status: Active Member Role Status [...] section and content) DATE CREATED AUTHOR 03/05/2023 [facility] DATE CREATED AUTHOR AUTHOR'S ORGANIZ ATION 02/04/2025 [facility] DATE CREATED AUTHOR AUTHOR'S ORGANIZ ATION 02/06/2025 [facility] DATE CREATED AUTHOR AUTHOR'S ORGANIZ ATION 05/17/2025 [facility] DATE CREATED AUTHOR AUTHOR'S ORGANIZ ATION 08/07/2025 [facility] EPIC Goals (unrecognized section and [...] BE BASED ON THE PRIMARY CLINICAL RECORDS. [employer] provides no warranty or guarantee of the accuracy or completeness of information in this document.
--- OUTSIDE RECORDS SUMMARY | 2025-08-25 16:47 | XMS_ITS | Clinical Summary ---
Author Organization [facility] Address [address] [place] [address] Care Team Providers Care Healthcare Translator Name Role Phone Alex Lloyd DO Primary Care Provider [phone] Allergies Active AllergyReactionsCriticalityNoted DateCommentsFerrous Tlcviwh2106/04/2023 Other Reaction(s): Unknown NcosIildq68/12/2022Iron ZmppduiOscryjx35/13/9251Fetvikeugjqnz92/16/2023 Other Reaction(s): Unknown Medications MedicationSigDispense QuantityRefillsLast FilledStart DateEnd DateStatus amLODIPine (Norvasc) 5 MG tablet 1 (one) time each day at the same timeActive denosumab (Prolia) 60 MG/ML solution prefilled syringe Active famotidine (Pepcid) 20 MG tablet every 12 (twelve) hoursActive fenofibrate (Triglide) 160 MG tablet 1 (one) time each day at the same timeActive gabapentin (Neurontin) 100 MG capsule every 8 (eight) hoursActive [place] 3 340 MG capsule delayed-release 1 capsule [...] 01/21/2025Malignant neoplasm of skin of eyelid, including gygfqcc3301/21/2025 Hypertensive renal sczaiax0207/09/2024Lumbar bifmnjzwtrw87/20/2024Osteoporosis 07/09/2024Type 2 diabetes mellitus with ktuaepdsaaddf64/20/2024Type 2 diabetes mellitus with diabetic chronic kidney vxhxwof4604/29/2024GERD (gastroesophageal reflux disease)06/06/20239152Ndfbiypevhfxxw64/18/7197Bgrucbzdcwqu44/18/2023 Amurujojtckcny68/18/2023Idiopathic progressive wzordqvpbr18/16/2023Vitamin D deficiency, yopbyfnoqyz94/16/2023Foraminal stenosis of lumbar bkrzxt0208/18/2014 Crohn's tkqcmuv4910/07/2012Chronic renal njwkzeoangbdg39/13/2012 Encounters DateTypeDepartmentCare QrnkKlmxalncset44/17/2025 11:15 AM EDTProcedure Visit [facility] [address] [place] [address] Napoleon Ward DPM Idiopathic progressive polyneuropathy (Primary Dx); Onychomycosis; Corns and ltuxiswrlgq14/17/2025amboo flowsheet [facility] [address] [place] [address] Napoleon Ward DPM 08/05/20258002Adcoyc78/08/2025 11:15 AM EDTProcedure Visit [facility] [address] [place] [address] Napoleon Ward DPM Idiopathic progressive polyneuropathy (Primary Dx); Onychomycosis; Corns and uchdlpzkkzx41/08/2025amboo flowsheet [facility] [address] [place] [address] Napoleon Ward DPM 05/27/2025Travelfrom Last 3 Months Immunizations ImmunizationAdministration DatesNext DuePneumococcal Polysaccharide PPSV23 08/03/2016 Family History Medical HistoryRelationNameCommentshtnFatherStrokeMotherhtnMotherRelationName StatusCommentsFatherMother Social History Tobacco UseTypesPacks/DayYears UsedDateSmoking Tobacco: NeverSmokeless Tobacco: Never Tobacco Cessation:Counseling Given: Not Answered Alcohol UseStandard Drinks/WeekCommentsNever0 (1 standard drink = 0.6 oz pure alcohol)CommentsUnknownSex and Gender InformationValueDate RecordedSex Assigned at BirthNot on fileLegal YvsIdhyef12/01/2023 8:32 PM EDTGender Identity Not on fileSexual OrientationNot on file Last Filed Vital Signs Vital SignReadingTime TakenCommentsBlood Dclzmkqp512/8208/05/2025 11:17 AM EDT Ztgzl893208/05/2025 11:17 AM EDTTemperature--Respiratory Cgmd2708 10:58 AM EDTOxygen Saturation--Inhaled Oxygen Concentration--Iwuucs95.6 kg (160 lb) 08/05/2025 11:17 AM LRVFvkfed151.6 cm (5' 6 )08/05/2025 11:17 AM EDTBody Mass Index25.8208/05/2025 11:17 AM EDT Plan of Treatment DateTypeDepartmentCare Team (Latest Contact Info)Kxvlkunvqqe64/19/2025 11:15 AM ESTProcedure Visit [facility] [address] [place] [address] Napoleon Ward DPZhou [address] [place] [address] Health MaintenanceDue DateLast DoneCommentsCOVID-19 Vaccine ( season) 51, 03/08/2022, 09/04/2021, Additional history exists Pneumococcal Vaccine: 65+ EplzeTwdmwuheu81/21/2016, 08/03/2016, 08/27/2005 Influenza EyvqpppOvhdczlbm05/16/2025, 08/02/2024, 08/15/2023, Additional [place] [address] Care Teams Team MemberRelationshipSpecialtyStart DateEnd Alex Lloyd DO [address] [facility] [place] [address] PCP - GeneralInternal Medicine03/25/25
--- OUTSIDE RECORDS SUMMARY | 2025-08-25 16:47 | XMS_ITS | Clinical Summary ---
Author Organization [facility] Address [address], [address] [place] [address] Care Team Providers Care Rn Icu Name Role Phone Unavailable Primary Care Provider Unavailabl e Social History Tobacco UseTypesPacks/DayYears UsedDateSmoking Tobacco: Never Assessed CommentsUnknownSex and Gender InformationValueDate RecordedSex Assigned at Not on fileLegal AbpAftshs58/12/2013 8:45 PM ESTGender IdentityNot on fileSexual OrientationNot on file Plan of Treatment Not on file
--- OUTSIDE RECORDS SUMMARY | 2025-08-25 16:47 | XMS_ITS | Clinical Summary ---
Author Organization [facility] Address [facility] [id number] [address] [place] [address] Care Team Providers Care Nanoscience Technician Name Role Phone Alex Lloyd Primary Care Provider [phone] Allergies Active AllergyReactionsCriticalityNoted PikwHwbmgqysCpgy10/12/2022ulfur 10/31/2021 Medications MedicationSigDispense QuantityRefillsLast FilledStart DateEnd DateStatus [...] RelationNameStatusCommentsFatherDeceasedMotherDeceased Social History Tobacco UseTypesPacks/DayYears UsedDateSmoking Tobacco: ObfgzfYugthioxbm4422 - 1963Smokeless Tobacco: Never Comments:only socially smoke d Alcohol UseStandard Drinks/WeekCommentsNot Currently0 (1 standard drink = 0.6 oz pure alcohol)ChildcareAnswerDate XzsywfqvOgihvrprhUdnutnf30/12/2019Employment AnswerDate ProylihjPdteeulqztLsvrggo72/12/2019CommentsUnknownSex and Gender InformationValueDate RecordedSex Assigned at BirthNot on fileLegal Sex Pokqyk4005/25/2015 11:54 AM EDTGender IdentityNot on fileSexual OrientationNot on file Last Filed Vital Signs Vital SignReadingTime TakenCommentsBlood Vhsleuto857/70010/31/2021 9:47 AM EST Pulse--Ghqoydmjgvr35.2 ??C (95.3 ??F)10/31/2021 9:47 AM ESTRespiratory Rate-- Oxygen Saturation--Inhaled Oxygen Concentration--Sydzak03.2 kg (168 lb) 10/31/2021 9:47 AM PVLUujstj566 cm (5' 3 )10/31/2021 9:47 AM ESTBody Mass Index 29.76010/31/2021 9:47 AM EST Plan of Treatment Health MaintenanceDue DateLast DoneCommentsDepression Eqarfozsf78/20/1952Tobacco Hrbxxoxwg02/20/1952DTaP,Tdap and Td Vaccines (1 - Tdap)02/06/1959Zoster (Shingles) Vaccine (1 of 2)02/06/1990Fall Risk Wpsdejrbl05/20/2005RSV ( or age 60+ yrs) (1 - 1-dose 75+ series)02/06/2015COVID-19 Vaccine (2024- season)5111/04/2020, 12/19/2020, 11/21/2020Influenza Btyuknv5506/20/2025 08/03/2020, 08/11/2019, 08/18/2018, Additional history exists Medical Devices Not on file Insurance Care Teams Team MemberRelationshipSpecialtyStart DateEnd Alex Lloyd DO [facility] [place] [address] PCP - GeneralInternal Fzkmuxsl76/10/21
--- OUTSIDE RECORDS SUMMARY | 2025-08-25 16:47 | XMS_ITS | Clinical Summary ---
Author Organization [facility] Address [address] [place], [place] [address] Care Team Providers Care Panel Cutter Name Role Phone Alex Lloyd DO Primary Care Provider [phone] Allergies Active AllergyReactionsCriticalityNoted DateCommentsSulfa (Sulfonamide Antibiotics)Uufqsff6110/01/2012Iron UorejuwLmdytjg73/13/2012 Medications MedicationSigDispense QuantityRefillsLast FilledStart DateEnd DateStatus carvedilol (COREG) 6.25 mg tablet Take 1 tablet by mouth twice daily.ctive gabapentin (NEURONTIN) 100 mg capsule Take 300 mg by mouth three times daily.10/01/2012ctive bnqks-0k-huq-epa-fish oil 300-1,000 mg cpDR Take by mouth.Active [...] chronic renal failure, stage 3b 10/30/2021Malaise and weupkme0812/05/2017Scoliosis of lumbar spine08/18/2014 Foraminal stenosis of lumbar bzrhon1108/18/2014Crohn's gfymbzq6910/07/2012nemia 10/01/2012Chronic renal zzpnzfvijdpel84/13/2012Iron blxsjcloai07/13/2012 HypertensionGERD (gastroesophageal reflux disease)Degenerative joint disease ArthritisHyperlipidemiaOsteoarthritis Immunizations ImmunizationAdministration DatesNext DueCOVID-19 original vaccine, full dose, monovalent (MODERNA)12/19/2020,11/21/2020influenza (HD-IIV3) vaccine, age 65+ yr, high dose, trivalent, PF (FLUZONE HIGH-DOSE)08/16/2021,08/13/2017,08/02/2016 ,08/17/2015influenza (IIV4) vaccine, age 6 mo - 64 yr, quadrivalent, PF (AFLURIA, FLUARIX, FLULAVAL, FLUZONE)08/03/2020,08/11/2019,08/18/2018,08/20/2017 ,07/20/2016influenza (LAIV) vaccine, nasal, unspecified vsupmqtcclc18/28/2021, 08/18/2018influenza (aIIV3) vaccine, age 65+ yr, trivalent, [...] drink = 0.6 oz pure alcohol)sociallyPHQ-2AnswerDate RecordedPHQ-2 cwmsh6744Area Deprivation IndexAnswerDate RecordedNational Score (1-100), lower number is lower risk86 03/20/2023State Score (1-10), lower number is lower qurm5213Data from: https://www.neighborhoodatlas.[facility]/. Last address used for xxfld[address]kal[address]CommentsNoSex and Gender InformationValueDate RecordedSex Assigned at BirthNot on fileLegal SexFemale 09/20/2012 10:12 AM ESTGender IdentityNot on fileSexual OrientationNot on file OccupationIndustryJob Start DateJob End DateretiredNot on fileNot on fileNot on file Last Filed Vital Signs Vital SignReadingTime TakenCommentsBlood Zkebpyaq696/8307 2:35 PM EDT Ioxwh803005/16/2025 2:35 PM QIAXwnijxiwsuv63.7 ??C (98 ??F)05/16/2025 2:35 PM EDT Respiratory Htwa388405/16/2025 2:35 PM EDTOxygen Sfdggsceqq05%05/16/2025 2:35 PM EDTInhaled Oxygen Concentration--Utpcxh41 kg (147 lb 11.3 oz)05/16/2025 2:35 PM WEAUnefir076.4 cm (5')05/16/2025 2:35 PM EDTBody Mass Index28.8507 2:35 PM EDT Plan of Treatment DateTypeDepartmentCare Team (Latest Contact Info)Accmyqyeywy85/26/2026 2:15 PM ESTOffice Visit [facility] [address] [place] [address] 6 month follow up lab11/14/2025 2:30 PM ESTVisit (SP) Office Hematology/Oncology [address] [place] [address] Jemma Hope APRN.BOW TACKER [address] [place] [address] 6 month follow up labHealth MaintenanceDue DateLast DoneCommentsAnxiety Feuqmmbyd51/20/1958Depression Iznveieby13/20/1958DTaP,Tdap,Td Vaccine (1 - Tdap) 02/06/1959Medicare Annual Wellness Visit01/18/2005Bone Density Screening 02/06/2005Advance Directive Mdowgncahw55/01/2025ovid-19 Vaccine ( season), 08/17/2022, 03/08/2022, Additional history exists Influenza Vaccine (#1), 08/15/2023, 08/09/2022, Additional history existsDiabetes Fgubvcbcb25, 04/06/2025, 02/22/2025, Additional history existsPneumococcal Vaccine: 50+Benryzquc38/21/2016, 08/03/2016, 08/27/2005Shingrix LwbjpvnUddonxckx68/19/2023, 11/18/2022RSV Vaccine Npihndqyc23/01/2023 Procedures Procedure NamePriorityDate/TimeAssociated DiagnosisCommentsCOMPREHENSIVE METABOLIC UQFRXFqwwqzd38/28/2025 2:13 PM EDT Iron deficiency Chronic renal impairment, stage 3 (moderate), unspecified whether stage 3a or 3b CKD (HCC) from Last 3 Months or Most Recently Relevant to Health Maintenance Results * (ABNORMAL) COMPREHENSIVE METABOLIC PANEL (05/16/2025 2:13 PM EDT)Component ValueRef RangeTest MethodAnalysis TimePerformed AtPathologist Signature Protein, Total6.66.3 - 8.0 g/dL05/16/2025 2:47 PM EDTNORTHCO[facility] LABAlbumin4.33.9 - 4.9 g/dL05/16/2025 2:47 PM EDTNORTHCOAST [facility] LABCalcium, Total9.68.5 - 10.2 mg/dL05/16/2025 2:47 PM EDTNORTHCST [facility] LABBilirubin, Total0.30.2 - 1.3 mg/dL 05/16/2025 2:47 PM [facility] LABAlkaline Lyquabjrkzz54(L)34 - 123 U/L05/16/2025 2:47 PM [facility] MVXGDW8268 - 35 U/L05/16/2025 2:47 PM [facility] KYVEAP160 - 38 U/L05/16/2025 2:47 PM [facility] VRUHihgdfh902(H)74 - 99 mg/dL05/16/2025 2:47 PM [facility] LABComment: The [place] Diabetes Association (ADA) provides guidance for cutoff [...] Standards of Medical Care in Diabetes 2016, [place] Diabetes Association. Diabetes Care. 2016.39(Suppl 1). BUN29(H)7 - 21 mg/dL05/16/2025 2:47 PM [facility] Creatinine1.31(H)0.58 - 0.96 mg/dL05/16/2025 2:47 PM [facility] LYIMfgrif181271 - 144 mmol/L05/16/2025 2:47 PM [facility] LABPotassium4.63.7 - 5.1 mmol/L05/16/2025 2:47 PM EDT [facility] YSKGlpcmlow04730 - 107 mmol/L05/16/2025 2:47 PM [facility] FFZSV41948 - 30 mmol/L05/16/2025 2:47 PM [facility] LABAnion Gap88 - 15 mmol/L05/16/2025 2:47 PM [facility]TNORTASP[facility] LABEstimated Glomerular Filtration Rate 40(L)>=60 mL/min/1.73m 05/16/2025 2:47 PM EDTW[facility] LABComment:Estimated Glomerular Filtration Rate (eGFR) is calculated [...] VolumeCollection TimeReceived TimeBloodBLOOD SPECIMEN / UnknownVenipuncture / Whgqrlr7905/16/2025 2:13 PM EDT05/16/2025 2:13 PM EDT Narrative Authorizing ProviderResult TypeResult StatusMinjocy MOORE-CLABORATORYFinal ResultPerforming OrganizationAddressCity/State/ZIP CodePhone Number [facility] [address] [place] [address] from Last 3 Months or Most Recently Relevant to Health Maintenance Insurance Care Teams Team MemberRelationshipSpecialtyStart DateEnd Date Alex Lloyd DO PCP - GeneralInternal Ljnpvhjn40/19/12
[2025-08-25 17:06] LABS: Glucose Urine UA NEGATIVE (NEGATIVE)
[2025-08-25 17:09] LABS: Protein Creatinine Ratio Urine 0.19; Total Protein Urine Random 9.6 mg/dL (<=11.9)
[2025-08-25 17:19] LABS: Cast Seen? NONE SEEN #/LPF (NONE SEEN); Crystals Seen? None Seen #/HPF (None Seen)
== END 2025-08-25 16:43 | disposition home or self-care (01) ==
LOC: LAB 16:42
PROVIDERS: PCP Internal Medicine; Visit Provider Internal Medicine
DX: E83.42 Hypomagnesemia (principal); N18.30 Chronic kidney disease, stage 3 unspecified; E11.65 Type 2 diabetes mellitus with hyperglycemia; E79.0 Hyperuricemia without signs of inflammatory arthritis and tophaceous disease; N25.81 Secondary hyperparathyroidism of renal origin; N18.9 Chronic kidney disease, unspecified
CPT/HCPCS: 81001; 82570; 84156